=== PATIENT | female | born 1950 | race Caucasian/White ===

== ENCOUNTER 2016-10-12 12:28 | Inpatient (IN) ==
--- NOTE | 2016-10-09 22:25 | Discharge Summary ---
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 with presence of antibiotic-impregnated cement spacer Priority: Primary Status: Acute (2) History of streptococcal septicemia Priority: Secondary Status: Chronic (3) COPD (chronic obstructive pulmonary disease) Priority: Secondary Status: Chronic Qualifiers: COPD type: unspecified COPD Qualified Code(s): J44.9 - Chronic obstructive pulmonary disease, unspecified (4) Chronic atrial fibrillation Priority: Secondary Status: Chronic (5) Morbid obesity with BMI of 50.0-59.9, adult Priority: Secondary Status: Chronic - Discharge Medications Home Medications: Albuterol Sulfate [Ventolin Hfa] 2 puff IH Q6H PRN 03/13/16 [History] Apixaban [Eliquis] 5 mg PO Q12H 03/13/16 [History] Aspirin Enteric Coated [Aspirin EC] 81 mg PO DAILY 03/13/16 [History] BuPROPion [Wellbutrin] 100 mg PO BID 03/13/16 [History] Calcium Carbonate/Vitamin D3 [Oyster Shell Calcium-Vit D Tab] 500 mg PO BID [History] Citalopram [CeleXA] 60 mg PO DAILY 03/13/16 [History] Digoxin [Lanoxin] 0.25 mg PO DAILY 03/13/16 [History] Diltiazem CD (24hr) [Cardizem CD] 240 mg PO DAILY 03/13/16 [History] Ferrous Sulfate 325 mg PO BIDWM 03/13/16 [History] Ipratropium/Albuterol Neb [Duoneb] 3 ml IH Q6HR 03/13/16 [History] Oxycodone HCl/Acetaminophen [Percocet 5-325 mg Tablet] 1 tab PO TID PRN [History] Umeclidinium [place] [Incruse Ellipta] 62.5 mcg IH DAILY 08/01/16 [History] Aspirin Enteric Coated [Aspirin EC] 325 mg PO DAILY #21 tablet. 10/12/16 [Rx] Furosemide [Lasix] 40 mg PO DAILY 10/12/16 [History] Mv,Ca,Min/Iron Fum/FA/Lyco/Lut [Sentry Multivit & Mineral Cplt] 1 tab PO DAILY 10/12/16 [History] Omeprazole [PriLOSEC] 40 mg PO DAILY 10/12/16 [History] OxyCODONE Immed Rel [Roxicodone 5 MG] 5 - 10 mg PO Q6HR PRN #40 tablet 10/12/16 [Rx] Oxygen 2 l NS AD PRN 10/12/16 [History] Allergies/Adverse Reactions: Allergies lisinopril Adverse Reaction (Verified 10/12/16 13:53) Cough Primary care physician: Edouard Cole MD - Patient Status Disposition: Home, Self-Care Condition: Good - Discharge Instructions Follow Up With: Edouard Cole MD [Primary Care Provider] - - Hospital Course Hospital course: Ms. Lewis is a 66 year old female - Time Spent with Patient Total time spent providing and/or coordinating discharge services: <Isai Castanon - Last Filed: 10/14/16 07:59> Date of Encounter: 10/14/16 Time of Encounter: 07:58 - Discharge Diagnosis (1) Atrial fibrillation with RVR Priority: Secondary Status: Chronic (2) COPD (chronic obstructive pulmonary disease) Priority: Secondary Status: Chronic Qualifiers: COPD type: unspecified COPD Qualified Code(s): J44.9 - Chronic obstructive pulmonary disease, unspecified (3) Morbid obesity Priority: Secondary Status: Chronic Qualifiers: Obesity type: due to excess calories Qualified Code(s): E66.01 - Morbid ( severe) obesity due to excess calories (4) Afib Priority: Secondary Status: Chronic Qualifiers: Atrial fibrillation type: chronic Qualified Code(s): I48.2 - Chronic atrial fibrillation (5) Morbid obesity with BMI of 50.0-59.9, adult Priority: Secondary Status: Chronic (6) 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 Lewis is a 66 year old female The patient had an uneventful postoperative course. They received antibiotics and physical therapy and were discharged in stable condition. There will follow -up in the office in 2 weeks. Aspirin DVT prophylaxis no motion weightbearing as tolerated in brace - Time Spent with Patient Total time spent providing and/or coordinating discharge services:
[2016-10-12] MEDS ORDERED: Lidocaine 1% 20 ML MDV ID ONE (13:13)
[2016-10-12] MEDS ORDERED: Albuterol 2.5 MG/3 ML NEBULIZER IH ONE (13:13)
[2016-10-12] MEDS ORDERED: Vancomycin 1,750 MG in D5% in Water 500 ML IVPB ONE (13:13)
[2016-10-12] MEDS ORDERED: Ringers Solution, Lactated 1,000 ML IVC SCH (13:15)
--- NOTE | 2016-10-12 13:24 | History & Physical Report ---
Date of Encounter: 10/12/16 Time of Encounter: 13:23 24 Hour HP Update - Instructions Instructions: If the History and Physical is less than 30 days old and was completed prior to A.M. admission and or procedure and has NOT been updated on calendar day of procedure please complete this update prior to performing procedure. - Update Patient reports changes in Medical Condition: No Changes in assessment/condition: No Changes in Medication: No Preop tests/diagnostics Reviewed: Yes Surgery Remains Indicated: Yes Consent for Planned Operative Procedure(s) Verified: Yes - Pre-Operative Checklist Preoperative Checklist Indicated: No Prophylactic Antibiotic Ordered: Yes Is VTE Prophylaxis Indicated?: Yes
[2016-10-12] MEDS ORDERED: *HR* Midazolam HCl 2 MG/2 ML VIAL ONE (13:38)
[2016-10-12] MEDS ORDERED: *HR* FentaNYL (PF) 100 MCG/2 ML VIAL ONE (13:38)
[2016-10-12] MEDS ORDERED: *HR* Propofol 200 MG/20 ML VIAL IVP ONE (13:38)
[2016-10-12] MEDS ORDERED: Lidocaine -MPF 2% 2 ML VIAL ONE (13:40)
[2016-10-12] MEDS ORDERED: Ondansetron 4 MG/2 ML VIAL ONE (13:40)
[2016-10-12] MEDS ORDERED: Dexamethasone 4 MG/ML VIAL ONE (13:40)
--- NOTE | 2016-10-12 13:49 | Anesthesia Evaluation PreOp ---
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 History: Denies Any Significant HX Other Medical History: GERD Anesthesia History: No Prior Anesthetic Complications, Past Anesthesia (d&c, t&a , l tka x2, r tka,) Alcohol Use: rarely Drug use: none Medications and Allergies Albuterol Sulfate [Ventolin Hfa] 2 puff IH Q6H PRN 03/13/16 [History] Apixaban [Eliquis] 5 mg PO Q12H 03/13/16 [History] Aspirin Enteric Coated [Aspirin EC] 81 mg PO DAILY 03/13/16 [History] BuPROPion [Wellbutrin] 100 mg PO BID 03/13/16 [History] Calcium Carbonate/Vitamin D3 [Oyster Shell Calcium-Vit D Tab] 500 mg PO BID [History] Citalopram [CeleXA] 60 mg PO DAILY 03/13/16 [History] Digoxin [Lanoxin] 0.25 mg PO DAILY 03/13/16 [History] Diltiazem CD (24hr) [Cardizem CD] 240 mg PO DAILY 03/13/16 [History] Ferrous Sulfate 325 mg PO BIDWM 03/13/16 [History] Furosemide [Lasix] 80 mg PO BID 03/13/16 [History] Ipratropium/Albuterol Neb [Duoneb] 3 ml IH Q6HR 03/13/16 [History] Oxycodone HCl/Acetaminophen [Percocet 5-325 mg Tablet] 1 tab PO TID PRN [History] Umeclidinium [place] [Incruse Ellipta] 62.5 mcg IH DAILY 08/01/16 [History] CefTRIAXone [Rocephin] 2,000 mg IVPB Q12HR 35 Days 08/10/16 [Rx] OxyCODONE/APAP 5/325 [Percocet 5/325 MG] 1 each PO Q6HR PRN #20 tablet 08/11/16 [Rx] Aspirin Enteric Coated [Aspirin EC] 325 mg PO DAILY #21 tablet. 10/12/16 [Rx] OxyCODONE Immed Rel [Roxicodone 5 MG] 5 - 10 mg PO Q6HR PRN #40 tablet 10/12/16 [Rx] Allergies lisinopril Adverse Reaction (Verified 09/09/16 21:37) Cough - Meds/Allergy Pre-op Review Medications Reviewed: Yes (eliquis) Allergies Reviewed: Yes Beta Blockers on Current Med List: No Anesthesia Results - Labs Laboratory Tests 09/16/16 09/16/16 10/07/16 09:00 09:00 08:32 Hgb 10.1 L Hct 33.5 L Plt Count 336 PT 15.2 H INR 1.4 APTT 33.7 Sodium 138 Potassium 4.0 Creatinine 0.65 - Imaging EKG: report reviewed (af, ivcd) Anesthesia Exam O2 Sat Height 1.59 m Height 1.59 m Height 1.59 m Weight 124.738 kg Weight 124.738 kg Weight 124.738 kg O2 Sat by Pulse Oximetry 93 O2 Sat by Pulse Oximetry 93 O2 Sat by Pulse Oximetry 93 Vital Signs Temp Pulse Resp BP Pulse Ox 98.5 F 78 18 131/74 93 L 10/12/16 12:56 10/12/16 12:56 10/12/16 12:56 10/12/16 12:56 10/12/16 12:56 Height: 1.59 Weight: 124 NPO (# of Hours): >8 - HEENT Pupil (Motor): Pupils equal, EOMI Mallampati: III Teeth: Edentulous Oral Opening: Greater than 3 - DIRECTOR OF RECREATION THERAPY LOC: Oriented DIRECTOR OF RECREATION THERAPY Motor: Normal RUE, Normal LUE, Normal RLE, Normal LLE, Normal Face DIRECTOR OF RECREATION THERAPY Sensory: Normal: RUE, LUE, RLE, LLE, Face - Cardiac Rhythm: Regular Murmur: None - Pulmonary Breath Sounds: bilateral Rhonchi Respiratory Effort: Symmetrical Anesthesia Assess/Plan ASA Score: 4 Modified [place] Scale for Level of Consciousness: Cooperative, oriented, and tranquil Anesthetic Plan: General, Regional Monitoring Plan: Standard Monitors Recovery Plan: PACU
[2016-10-12] MEDS ORDERED: *HR* HYDROmorphone (PF) 1 MG/ML SYRINGE IVP PRN ×2 (14:00→17:17)
[2016-10-12] MEDS ORDERED: *HR* Labetalol 100 MG/20 ML MDV IVP PRN (14:00)
[2016-10-12] MEDS ORDERED: Ketorolac 15 MG/ML VIAL IVP ONE (14:00)
[2016-10-12] MEDS ORDERED: Bupivacaine/Clonidine Syringe 1 EACH SYRINGE ONE (14:04)
--- NOTE | 2016-10-12 15:02 | Anesthesia Procedures ---
Date of Encounter: 10/12/16 Time of Encounter: 14:30 Procedures: Anesthesia - Nerve Block Procedure Date: 10/12/16 Time: 14:30 Allergies/Adv Reactions: Allergies Allergy/AdvReac Type Severity Reaction Status Date / Time lisinopril AdvReac Cough Verified 10/12/16 13:53 Surgical Procedure: Left Knee Revision Checklist: Correct Patient Identifier, Correct procedure, History checked Correct side: Left Blood Thinner: No Monitor Applied: EKG, BP, Pulse Oximetry Supplemental Oxygen via Nasal Cannula (L/min): 2 Sedation: Versed (mg): 2 Indication: Post Op Analgesia (per dr. linda) Pre-op Neuro Deficits: No Block Type: Femoral, Other (ipack) Sterile Technique: Yes Ultrasound used: Yes Anatomy identified: Yes Visual spread of Local: Yes Neuro Stimulation: Yes Nerve Stimulator Range: 0.2 - 0.4 mA Blood on Needle Aspiration: No Smooth Injection of Local: Yes Pain with Injection of Local: No Prep: Chlorhexadine Needle: 22 x 50 mm Stimuplex (for femoral), 21 x 100 mm Stimuplex (for ipack) Local: 0.25% Bupivicaine w/Clonidine 20 mcg/cc Volume (cc): 40 femoral, 20 ipack Number of Attempts: 1 Complications: None/effective block Vitals: Vital Signs/O2 Sat/Glucose, Most Recent Temp Pulse Resp BP Pulse Ox 98.5 F 76 16 147/83 99 10/12/16 13:22 10/12/16 14:30 10/12/16 14:30 10/12/16 14:30 10/12/16 14:30 [facility]
--- NOTE | 2016-10-12 15:33 | Orthopedic Operative Note ---
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 20 constrained Lyn, Exam Under anesthesia: Patient with a well-healed incision no drainage nor erythema Procedural Notes: Patient with no evidence of infection Gram stain and culture sent Operative procedure: The patient was brought to the operating room and placed on the operating room table. After general anesthesia was administered the operative knee was examined. Findings were noted in the exam under anesthesia. The operative extremity was prepped and draped in sterile surgical fashion. The patient received IV antibiotics prior to skin incision. A standard midline incision was made centered over the patella through the old incision. The incision was made through the skin and subcutaneous tissue. A medial parapatellar tendon approach was performed. Patient had a previous patellectomy. Care was taken to protect the patella tendon. The deep MCL was released off the medial tibia. The infra patella fat pad was excised. Fluid was encountered this was normal joint fluid, Cultures were obtained and gram . The knee was brought into flexion the cemented Lyn was removed, the lightly cemented femoral component was removed. The ends were cleared of soft tissue debris with a curet. The tibia was sized to a 63 it was reamed up to a 15 x 120. Trial had good fit and fixation. The femur was sized to a 60, was reamed up to a 14 x 120. The finishing guide was seated and the box cut was made. The trial had good fit and fixation. Both trial components were seated and the 20 constrained Lyn was seated and secured. The knee had full flexion and full extension with no instability. The trial components were removed. The knee sat for 2 minutes with a Betadine saline solution. It was irrigated out with 2 L of pulse irrigation. The components were assembled on the back table, the tibia cemented first followed by the femur. The 20 constrained liner was seated and secure. The knee was brought to full extension while the cement hardened. After the cement hardened the knee was irrigated out again. The extensor mechanism was closed with a running #2 PDS suture. The deep tissue was irrigated and closed deep with #1 PDS suture superficially with 0 PDS suture. The skin was closed with skin zuleika. The patient was placed in a sterile dressing and postoperative brace. They were extubated and transferred to recovery room in stable condition. Anesthesia: GETA Surgeon: Isai Castanon [employer] Consultant: Elizabeth Oh Condition: stable Disposition: PACU
[2016-10-12 16:42] LABS: Hematocrit 35.3 % (35.3-44.9); Hemoglobin 10.3 g/dL (11.5-15.4)
--- NOTE | 2016-10-12 17:05 | Anesthesia Evaluation Post Op ---
Date of Encounter: 10/12/16 Time of Encounter: 17:03 - Vital Signs Vital Signs: Vital Signs/O2 Sat/Glucose, Most Current Temp Pulse Resp BP Pulse Ox 10/12/16 16:35 98.0 F 87 16 131/78 99 10/12/16 16:25 85 16 115/69 97 10/12/16 16:15 91 16 141/77 99 10/12/16 16:05 98.1 F 96 16 141/88 100 10/12/16 14:30 76 16 147/83 99 10/12/16 14:16 75 16 167/82 100 10/12/16 13:22 98.5 F 78 18 131/74 93 L - Lungs Lungs: Treatment Ordered (baseline wheezes/rhonchi) - Airway Airway: Non-obstructed - Cardiovascular Baseline Rhythm - Mental Status Mental Status: Alert & Oriented, Answers Appropriately - Pain Pain Scale: 4 Pain Scale used: Numeric (1 - 10) - Nausea Vomiting Nausea Vomiting: Not Present - Hydration Hydration: Ice chips, Has not voided - Discharge PostOp Status: Transfer Patient to floor Anes Supervising Prov Stmt: PT seen/evaluated, VSS and pt has met criteria for discharge to floor. - MD Casey
[2016-10-12] MEDS ORDERED: NON-FORMULARY MEDICATION 1 EACH EACH (Oxygen [Oxygen] 2 L) NS PRN (17:17)
[2016-10-12] MEDS ORDERED: Temazepam 15 MG CAPSULE PO PRN (17:17)
[2016-10-12] MEDS ORDERED: MOM Conc 10 ML UD.LIQ PO PRN (17:17)
[2016-10-12] MEDS ORDERED: Naloxone 0.4 MG/ML INJ IVP PRN (17:17)
[2016-10-12] MEDS ORDERED: Acetaminophen 325 MG TABLET PO PRN (17:17)
[2016-10-12] MEDS ORDERED: Ondansetron 4 MG/2 ML VIAL IVP PRN (17:17)
[2016-10-12] MEDS ORDERED: Sennosides 8.6 MG TABLET PO PRN (17:17)
[2016-10-12] MEDS ORDERED: *HR* Enoxaparin 30 MG/0.3 ML SYRINGE SQ SCH (18:00)
[2016-10-12] MEDS ORDERED: Vancomycin 1,000 MG VIAL IVPB SCH (18:00)
[2016-10-12] MEDS: APIXABAN 5 MG TABLET PO SCH (19:53)
[2016-10-12] MEDS: Ipratropium/Albuterol Neb 3 ML IH SCH (21:07)
[2016-10-12] MEDS: Ringers Solution, Lactated 1,000 ML IVC SCH (21:36)
[2016-10-13] MEDS: Vancomycin 1,250 MG in D5% in Water 250 ML IVPB SCH ×2 (00:49→15:13)
[2016-10-13] MEDS: *HR* OxyCODONE Immed Rel 5 MG TABLET PO PRN ×3 (04:30→20:26)
[2016-10-13 05:15] LABS: Hematocrit 32.2 % (35.3-44.9); Hemoglobin 9.8 g/dL (11.5-15.4)
[2016-10-13] MEDS: APIXABAN 5 MG TABLET PO SCH ×2 (05:44→17:59)
[2016-10-13] MEDS: Ipratropium/Albuterol Neb 3 ML IH SCH ×4 (05:56→22:11)
[2016-10-13 06:36] LABS: BUN/Creatinine Ratio 17 (6-26); Blood Urea Nitrogen 12 mg/dL (7-20); Calcium 9.3 mg/dL (8.6-10.8); Carbon Dioxide 26 mEq/L (19-29); Chloride 101 mEq/L (98-109); Glucose 156 mg/dL (70-99); Osmolality,Calculated 289 (280-300); Potassium 4.5 mEq/L (3.5-4.5); Sodium 138 mEq/L (136-145); eGFR For African Americans > 60 (> 60); eGFR For Non-African Americans > 60 (> 60)
--- NOTE | 2016-10-13 07:45 | Orthopedics Progress Note ---
Date of Encounter: 10/13/16 Time of Encounter: 06:00 - Assessment and Plan (1) Atrial fibrillation with RVR Current Visit: No Status: Chronic (2) COPD (chronic obstructive pulmonary disease) Current Visit: No Status: Chronic Qualifiers: COPD type: unspecified COPD Qualified Code(s): J44.9 - Chronic obstructive pulmonary disease, unspecified (3) Morbid obesity Current Visit: No Status: Chronic Qualifiers: Obesity type: due to excess calories Qualified Code(s): E66.01 - Morbid ( severe) obesity due to excess calories (4) Afib Current Visit: No Status: Chronic Qualifiers: Atrial fibrillation type: chronic Qualified Code(s): I48.2 - Chronic atrial fibrillation (5) Morbid obesity with BMI of 50.0-59.9, adult Current Visit: No Status: Chronic (6) 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 Afebrile vital signs stable. Operative extremity: Neurovascularly intact Dressing clean dry and intact Calves nontender Assessment and plan: Continue with postoperative care Hematocrit 32 Objective Vital signs: Vital Signs Temp Pulse Resp BP Pulse Ox 10/13/16 07:31 98.6 F 94 16 117/68 96 10/13/16 03:30 98.1 F 102 18 134/77 96 10/13/16 00:48 97.9 F 97 18 144/80 95 10/12/16 21:12 95 140/90 97 10/12/16 21:08 16 96 10/12/16 19:35 98 F 85 16 131/83 95 10/12/16 18:35 98.7 F 100 16 125/79 97 10/12/16 18:05 98.5 F 84 18 128/84 96 10/12/16 17:35 98.5 F 85 16 130/84 100 10/12/16 17:20 97.8 F 86 16 138/82 97 10/12/16 17:05 97.7 F 72 16 135/85 97 10/12/16 16:50 97.7 F 93 16 134/86 94 L 10/12/16 16:35 98.0 F 87 16 131/78 99 10/12/16 16:25 85 16 115/69 97 10/12/16 16:15 91 16 141/77 99 10/12/16 16:05 98.1 F 96 16 141/88 100 10/12/16 14:30 76 16 147/83 99 10/12/16 14:16 75 16 167/82 100 10/12/16 13:22 98.5 F 78 18 131/74 93 L 10/12/16 12:56 98.5 F 78 18 131/74 93 L Intake and Output 10/12/16 10/12/16 10/13/16 15:59 23:59 07:59 Intake Total 750 / 750 0 / 0 Output Total 200 / 200 0 / 0 Balance -200 / -200 750 / 750 0 / 0 Intake: IV Fluids 750 / 750 Lactated Ringers 1,000 ML 750 / 750 @ 25 mls/hr IVC .Q24H [facility] Rx#:[id number] Oral 0 / 0 Output: Urine 0 / 0 Estimated Blood Loss 200 / 200 Other: Weight 124.738 kg 124.4 kg Patient Weight 10/13/16 23:59 Weight 124.4 kg - Labs CBC & BMP: 10/13/16 04:08 10/13/16 04:08 Labs: Abnormal lab results Hgb 9.8 g/dL (11.5-15.4) L 10/13/16 04:08 Hct 32.2 % (35.3-44.9) L 10/13/16 04:08 Glucose 156 mg/dL (70-99) H 10/13/16 04:08 - VTE Documentation of Mechanical Device: Venous foot pump, device Consult Discharge Plan - Plan Referrals: Edouard Cole MD [Primary Care Provider] -
[2016-10-13] MEDS: Aspirin Enteric Coated 81 MG Tablet PO SCH (08:30)
[2016-10-13] MEDS: Furosemide 40 MG TABLET PO SCH (08:30)
[2016-10-13] MEDS: *HR* Digoxin 0.25 MG TABLET PO SCH (08:30)
[2016-10-13] MEDS: Multivit/Ca/Min/Fe/FA 1 TAB TABLET PO SCH (08:30)
[2016-10-13] MEDS: Diltiazem CD (24hr) 240 MG CAPSULE PO SCH (08:30)
[2016-10-13] MEDS: INCRUSE ELLIPTA IH SCH (09:26)
[2016-10-13] MEDS: Ringers Solution, Lactated 1,000 ML IVC SCH (12:22)
[2016-10-14] MEDS: Vancomycin 1,250 MG in D5% in Water 250 ML IVPB SCH (03:34)
[2016-10-14] MEDS: *HR* OxyCODONE Immed Rel 5 MG TABLET PO PRN ×2 (03:40→09:32)
[2016-10-14] MEDS: Ipratropium/Albuterol Neb 3 ML IH SCH (03:46)
[2016-10-14 05:16] LABS: Hematocrit 31.4 % (35.3-44.9); Hemoglobin 9.3 g/dL (11.5-15.4)
[2016-10-14 05:30] LABS: BUN/Creatinine Ratio 23 (6-26); Blood Urea Nitrogen 17 mg/dL (7-20); Carbon Dioxide 27 mEq/L (19-29); Chloride 100 mEq/L (98-109); Glucose 116 mg/dL (70-99); Osmolality,Calculated 285 (280-300); Potassium 4.1 mEq/L (3.5-4.5); Sodium 136 mEq/L (136-145); eGFR For African Americans > 60 (> 60); eGFR For Non-African Americans > 60 (> 60)
[2016-10-14] MEDS: APIXABAN 5 MG TABLET PO SCH (06:30)
[2016-10-14 07:19] VITALS: BP 107/71
[2016-10-14] MEDS: INCRUSE ELLIPTA IH SCH (07:24)
[2016-10-14] MEDS: Aspirin Enteric Coated 81 MG Tablet PO SCH (07:48)
[2016-10-14] MEDS: *HR* Digoxin 0.25 MG TABLET PO SCH (07:48)
[2016-10-14] MEDS: Multivit/Ca/Min/Fe/FA 1 TAB TABLET PO SCH (07:48)
[2016-10-14] MEDS: Diltiazem CD (24hr) 240 MG CAPSULE PO SCH (07:48)
[2016-10-14] MEDS: Furosemide 40 MG TABLET PO SCH (07:49)
--- NOTE | 2016-10-14 08:00 | Orthopedics Progress Note ---
Date of Encounter: 10/14/16 Time of Encounter: 07:59 - Assessment and Plan (1) Atrial fibrillation with RVR Current Visit: No Status: Chronic (2) COPD (chronic obstructive pulmonary disease) Current Visit: No Status: Chronic Qualifiers: COPD type: unspecified COPD Qualified Code(s): J44.9 - Chronic obstructive pulmonary disease, unspecified (3) Morbid obesity Current Visit: No Status: Chronic Qualifiers: Obesity type: due to excess calories Qualified Code(s): E66.01 - Morbid ( severe) obesity due to excess calories (4) Afib Current Visit: No Status: Chronic Qualifiers: Atrial fibrillation type: chronic Qualified Code(s): I48.2 - Chronic atrial fibrillation (5) Morbid obesity with BMI of 50.0-59.9, adult Current Visit: No Status: Chronic (6) 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 Afebrile vital signs stable. Operative extremity: Neurovascularly intact Dressing clean dry and intact Calves nontender Assessment and plan: Continue with postoperative care discharge today Objective Vital signs: Vital Signs Temp Pulse Resp BP Pulse Ox 10/14/16 07:14 98.4 F 93 16 107/71 93 L 10/14/16 03:47 20 96 10/14/16 02:45 98.0 F 81 18 116/66 93 L 10/13/16 22:11 20 98 10/13/16 20:21 98.7 F 72 20 120/62 95 10/13/16 16:31 16 96 10/13/16 15:21 98.4 F 64 18 106/63 96 10/13/16 11:54 98.1 F 96 16 128/74 95 10/13/16 10:49 18 95 10/13/16 08:25 96 Intake and Output 10/13/16 10/13/16 10/14/16 15:59 23:59 07:59 Intake Total 1240 / 1240 1210 / 1210 1730 / 1730 Output Total 400 / 400 0 / 0 Balance 1240 / 1240 810 / 810 1730 / 1730 Intake: IV Fluids 1000 / 1000 250 / 250 1250 / 1250 Lactated Ringers 1,000 ML 1000 / 1000 1000 / 1000 @ 75 mls/hr IVC .[id number] [facility] Rx#:[id number] Vancocin 1,250 MG In 250 / 250 250 / 250 Dextrose 5% 250 ML @ 166. 667 mls/hr IVPB Q12H [facility] Rx#:[id number] Oral 240 / 240 960 / 960 480 / 480 Output: Urine 400 / 400 0 / 0 Other: Meal Breakfast soda Percent of Meal Consumed 50% 100% # Voids 2 Weight 124.9 kg Patient Weight 10/14/16 23:59 Weight 124.9 kg - Labs CBC & BMP: 10/14/16 04:38 10/14/16 04:38 Labs: Abnormal lab results Hgb 9.3 g/dL (11.5-15.4) L 10/14/16 04:38 Hct 31.4 % (35.3-44.9) L 10/14/16 04:38 Glucose 116 mg/dL (70-99) H 10/14/16 04:38 - VTE Documentation of Mechanical Device: Venous foot pump, device Consult Discharge Plan - Plan Referrals: Edouard Cole MD [Primary Care Provider] -
[2016-10-14] MEDS ORDERED: Aminoglycoside Consult 1 EACH MC ONE (09:35)
== END 2016-10-14 09:36 | disposition home or self-care (01) | DRG 467 ==
LOC: SAMDAY 12:28 → 3ANU 17:00
PROVIDERS: ADMIT Orthopaedic Surgery; ATTEND Orthopaedic Surgery

== ENCOUNTER 2017-05-03 14:06 | Inpatient (IN) ==
[2017-05-03] MEDS ORDERED: Ipratropium/Albuterol Neb 3 ML IH ONE (14:10)
[2017-05-03] MEDS ORDERED: methylPREDNISolone 125 MG/2 ML VIAL IVP ONE (14:10)
--- NOTE | 2017-05-03 14:27 | Emergency Department Note ---
Disposition Clinical Impression: Acute exacerbation of chronic obstructive airways disease, Hypoxia Disposition: Admitted As Inpatient Condition: Good Referrals: Edouard Cole MD [Primary Care Provider] - Forms: ED Satisfaction Letter Time of Disposition: 16:27 SOB HPI - General Chief Complaint: ED Shortness of Breath/Dyspnea Stated Complaint: JESSICA Time Seen by Provider: 05/03/17 14:10 Source: patient Limitations: no limitations Nursing Notes Reviewed: Yes Vital Signs Reviewed: Yes - History of Present Illness 66 year old female with HX of COPD states that she usually wears 2LNC at rishabh during the night when she sleeps and she smoke cigarettes dailiy. Patient states that she has needed incresed oxygen requirements for the past 24-48 hours and has been increasingly her oxygen requirements to 24 hours of 2LNC. Frankie states tht she also has had a productive cough with white sputum. She states that she has been looking for her albuerol and breathign treaments and couldnt find it and so she called EMS due to the dyspnea. Fraknie was hypoxic on EMS arrrival at 86%. she is on 2LNC now and at 100% she denies chest pain. Denies fevers. - Related Data Home Medications Medication Instructions Recorded Confirmed Albuterol Sulfate [Ventolin Hfa] 2 puff IH Q6H PRN 03/13/16 05/03/17 Apixaban [Eliquis] 5 mg PO Q12H 03/13/16 05/03/17 Aspirin Enteric Coated [Aspirin EC] 81 mg PO DAILY 03/13/16 05/03/17 BuPROPion [Wellbutrin] 100 mg PO BID 03/13/16 05/03/17 Calcium Carbonate/Vitamin D3 500 mg PO BID 03/13/16 05/03/17 [Oyster Shell Calcium-Vit D Tab] Citalopram [CeleXA] 60 mg PO DAILY 03/13/16 05/03/17 Digoxin [Lanoxin] 0.25 mg PO DAILY 03/13/16 05/03/17 Ferrous Sulfate 325 mg PO BIDWM 03/13/16 05/03/17 Ipratropium/Albuterol Neb [Duoneb] 3 ml IH Q6HR PRN 03/13/16 05/03/17 Umeclidinium [place] [Incruse 62.5 mcg IH DAILY 08/01/16 05/03/17 Ellipta] Mv,Ca,Min/Iron Fum/FA/Lyco/Lut 1 tab PO DAILY 10/12/16 05/03/17 [Sentry Multivit & Mineral Cplt] Omeprazole [PriLOSEC] 40 mg PO DAILY 10/12/16 05/03/17 Oxygen 2 l NS AD PRN 10/12/16 05/03/17 Diltiazem HCl [Diltiazem ER] 240 mg PO DAILY 05/03/17 05/03/17 Fluticasone/Salmeterol [Advair 1 each IH BID 05/03/17 05/03/17 250-50 Diskus] Furosemide [Lasix] 80 mg PO BID 05/03/17 05/03/17 Allergies Allergy/AdvReac Type Severity Reaction Status Date / Time lisinopril AdvReac Cough Verified 10/12/16 13:53 Constitutional: Denies: fever, chills, weakness, weight change Eyes: Denies: eye pain, eye discharge, vision change ENT ED: Denies: ear pain, throat pain, dental pain, hearing loss, epistaxis, congestion, dysphagia Cardiovascular: Denies: chest pain, palpitations, dyspnea on exertion, edema, syncope Respiratory: Reports: cough, dyspnea, wheezes. Denies: hemoptysis, stridor Gastrointestinal: Denies: abdominal pain, nausea, vomiting, diarrhea, constipation, hematemesis, melena, hematochezia Genitourinary: Denies: dysuria, frequency, hematuria, discharge Musculoskeletal: Denies: back pain, neck pain, arthralgia, myalgia Integumentary: Denies: rash, abrasion, lesions Neurological: Denies: headache, weakness, numbness, paresthesias, confusion, abnormal gait, vertigo Psychiatric: Denies: anxiety, depression, suicidal thoughts, homicidal thoughts , auditory hallucinations, visual hallucinations Endocrine: Denies: fatigue Hematological/Lymphatic: Denies: easy bleeding, easy bruising Allergic/Immunologic: Denies: facial swelling, urticaria Past Medical History - Past Medical History Medical history: Reports: atrial fibrillation, COPD, GERD, hypertension, other Surgical history: Reports: knee replacement Psychiatric history: Reports: depression DURABLE MEDICAL EQUIPMENT TECHNICIAN history: Reports: no DURABLE MEDICAL EQUIPMENT TECHNICIAN history - Social History Smoking Status: Current every day smoker Smokeless Tobacco Status: Yes Alcohol use: Reports: rarely Drug use: Reports: none Physical Exam - General Limitations: no limitations General appearance: alert - Head Head exam: atraumatic, normocephalic, normal inspection - Eye Eye exam: Present: normal appearance, PERRL, EOMI - Expanded Eye Exam Pupils: Left: reactive - ENT ENT exam: normal exam, normal oropharynx, mucous membranes moist - Expanded ENT Exam External ear exam: Present: normal external inspection Mouth exam: Present: normal external inspection Teeth exam: Present: normal inspection Throat exam: Present: normal inspection - Neck Neck exam: Present: normal inspection, full ROM, trachea midline - Chest Chest inspection: Present: normal inspection, symmetric chest wall rise - Respiratory Respiratory exam: Present: wheezes - Expanded Respiratory Exam Location: wheezes: Left, Right, Upper, Lower - Cardiovascular Cardiovascular exam: Present: regular rate, normal rhythm, normal heart sounds - Abdominal Exam Abdominal exam: Present: soft, Non-Tender. Absent: tenderness, distention, guarding, rebound, rigidity - Extremities Exam Extremities exam: Present: normal inspection, full ROM. Absent: tenderness, pedal edema - Expanded Upper Extremity Exam Shoulder exam: Present: normal inspection, full ROM Arm exam: Present: normal inspection, full ROM Elbow exam: Present: normal inspection, full ROM Forearm/Wrist exam: Present: normal inspection, full ROM Hand exam: Present: normal inspection, full ROM Vascular exam: Normal: capillary refill, radial pulse - Expanded Lower Extremity Exam Hip/Pelvis exam: Present: normal inspection, full ROM Upper leg exam: Present: normal inspection, full ROM Knee exam: Present: normal inspection, full ROM Lower leg exam: Present: normal inspection, full ROM Ankle exam: Present: normal inspection, full ROM Foot/toe exam: Present: normal inspection, full ROM Neurovascular/Tendon exam: Absent: motor deficit, sensory deficit, tendon deficit - Back Exam Back exam: Present: normal inspection, full ROM. Absent: tenderness - Neurological Exam Neurological exam: Present: alert, oriented X3 - Expanded Neurological Exam Patient oriented to: Present: person, place, time Coma Scale Eye Opening: Spontaneous Coma Scale Motor Response: Obeys Commands Coma Scale Verbal Response: Oriented Coma Scale Total: 15 - Psychiatric Psychiatric exam: Present: normal affect, normal mood - Skin Skin exam: Present: warm, dry, intact, normal color Course Course Narrative: we will give him duonebs and solumderol for therapy. cardiac workup - Reevaluation(s) Reevaluation #1: updated patient on reuslts SHe is 88% on 2LNC, inreasd to 4LNC and now she is 92 %. She is agreeable to admision Time: 16:27 - Consultations Consultation #1: discussed case with Bharati Mendez NP and she has accepted case to medicine service Time: 16:27 Vital Signs Temperature 98.3 F 05/03/17 14:08 Pulse Rate 73 05/03/17 14:08 Respiratory Rate 22 05/03/17 14:08 Blood Pressure 143/85 05/03/17 14:08 O2 Sat by Pulse Oximetry 99 05/03/17 14:08 Temperature 98.3 F 05/03/17 14:08 Pulse Rate 70 05/03/17 16:09 Respiratory Rate 18 05/03/17 16:09 Blood Pressure 141/68 05/03/17 16:09 O2 Sat by Pulse Oximetry 93 05/03/17 16:09 Oxygen Delivery Oxygen Delivery Nasal Cannula Shortness of Breath/Dyspnea - Lab Data Result diagrams: 05/03/17 14:35 05/03/17 14:35 Lab Results 05/03/17 05/03/17 05/03/17 Range/Units 14:35 14:35 14:35 WBC (4.3-11.1) K/mcL RBC (3.82-4.97) M/mcL Hgb (11.5-15.4) g/dL Hct (35.3-44.9) % MCV (83.0-100.0) fL MCH (28.0-33.3) pg MCHC (31.6-35.5) g/dL RDW (11.5-14.5) % Plt Count (140-400) K/mcL MPV (9.4-12.4) fL Immature Gran % (0-4) % Seg Neutrophils % % Lymphocytes % % Monocytes % % Eosinophils % % Basophils % % Neutrophils # (1.6-8.9) K/mcL Lymphocytes # (0.6-4.6) K/mcL Monocytes # (0.0-1.3) K/mcL Eosinophils # (0.0-0.6) K/mcL Basophils # (0.0-0.2) K/mcL PT 14.6 H (9.4-12.1) Seconds INR 1.3 APTT 34.2 (26.0-36.0) Seconds Sodium (136-145) mEq/L Potassium (3.5-4.5) mEq/L Chloride (98-109) mEq/L Carbon Dioxide (19-29) mEq/L BUN (7-20) mg/dL Creatinine (0.57-1.11) mg/dL Est GFR ( Amer) (> 60) Est GFR (Non-Af Amer) (> 60) BUN/Creatinine Ratio (6-26) Glucose (70-99) mg/dL Calculated Osmolality (280-300) Calcium (8.6-10.8) mg/dL Total Bilirubin 0.2 (0.2-1.2) mg/dL Direct Bilirubin 0.2 (0.0-0.5) mg/dL Indirect Bilirubin 0.0 (0.0-1.2) mg/dL AST 15 (5-34) Units/L ALT 16 (0-55) Units/L Alkaline Phosphatase 112 (38-126) Units/L Troponin I (0-0.03) ng/mL B-Natriuretic Peptide 154 H (0-100) pg/mL Serum Total Protein 7.8 (6.0-8.3) g/dL Albumin 3.2 L (3.5-5.0) g/dL Globulin 4.6 H (2.4-3.5) g/dL Albumin/Globulin Ratio 0.7 L (1.1-2.2) Lipase 27 (8-78) Units/L 05/03/17 05/03/17 05/03/17 Range/Units 14:35 14:35 14:35 WBC 7.6 (4.3-11.1) K/mcL RBC 4.79 (3.82-4.97) M/mcL Hgb 11.5 (11.5-15.4) g/dL Hct 38.8 (35.3-44.9) % MCV 81.0 L (83.0-100.0) fL MCH 24.0 L (28.0-33.3) pg MCHC 29.6 L (31.6-35.5) g/dL RDW 15.9 H (11.5-14.5) % Plt Count 277 (140-400) K/mcL MPV 9.5 (9.4-12.4) fL Immature Gran % 0.5 (0-4) % Seg Neutrophils % 56.5 % Lymphocytes % 23.2 % Monocytes % 9.4 % Eosinophils % 10.0 % Basophils % 0.4 % Neutrophils # 4.3 (1.6-8.9) K/mcL Lymphocytes # 1.8 (0.6-4.6) K/mcL Monocytes # 0.7 (0.0-1.3) K/mcL Eosinophils # 0.8 H (0.0-0.6) K/mcL Basophils # 0.0 (0.0-0.2) K/mcL PT (9.4-12.1) Seconds INR APTT (26.0-36.0) Seconds Sodium 140 (136-145) mEq/L Potassium 3.5 (3.5-4.5) mEq/L Chloride 100 (98-109) mEq/L Carbon Dioxide 32 H (19-29) mEq/L BUN 10 (7-20) mg/dL Creatinine 0.78 (0.57-1.11) mg/dL Est GFR ( Amer) > 60 (> 60) Est GFR (Non-Af Amer) > 60 (> 60) BUN/Creatinine Ratio 13 (6-26) Glucose 87 (70-99) mg/dL Calculated Osmolality 288 (280-300) Calcium 9.4 (8.6-10.8) mg/dL Total Bilirubin (0.2-1.2) mg/dL Direct Bilirubin (0.0-0.5) mg/dL Indirect Bilirubin (0.0-1.2) mg/dL AST (5-34) Units/L ALT (0-55) Units/L Alkaline Phosphatase (38-126) Units/L Troponin I 0.00 (0-0.03) ng/mL B-Natriuretic Peptide (0-100) pg/mL Serum Total Protein (6.0-8.3) g/dL Albumin (3.5-5.0) g/dL Globulin (2.4-3.5) g/dL Albumin/Globulin Ratio (1.1-2.2) Lipase (8-78) Units/L - EKG Data EKG attestation: Yes I reviewed and interpreted this EKG. EKG results narrative: atrial fibrilltion rate controlled at 84. NO STEMI. no change from 08/01/16. 1414
[2017-05-03 14:44] LABS: Basophils % 0.4 %; Eosinophils # 0.8 K/mcL (0.0-0.6); Hematocrit 38.8 % (35.3-44.9); Hemoglobin 11.5 g/dL (11.5-15.4); Immature Granulocytes % 0.5 % (0-4); Lymphocytes # 1.8 K/mcL (0.6-4.6); Lymphocytes % 23.2 %; Mean Corpuscular HGB Conc 29.6 g/dL (31.6-35.5); Mean Platelet Volume 9.5 fL (9.4-12.4); Monocytes # 0.7 K/mcL (0.0-1.3); Monocytes % 9.4 %; Neutrophils # 4.3 K/mcL (1.6-8.9); Platelet Count 277 K/mcL (140-400); Red Blood Count 4.79 M/mcL (3.82-4.97); Red Cell Distribution Width 15.9 % (11.5-14.5); Segmented Neutrophils % 56.5 %
[2017-05-03 14:50] LABS: INR 1.3; Prothrombin Time 14.6 Seconds (9.4-12.1)
[2017-05-03 14:53] LABS: Activated Partial Thrombo Time 34.2 Seconds (26.0-36.0)
[2017-05-03 14:56] LABS: BUN/Creatinine Ratio 13 (6-26); Blood Urea Nitrogen 10 mg/dL (7-20); Calcium 9.4 mg/dL (8.6-10.8); Carbon Dioxide 32 mEq/L (19-29); Chloride 100 mEq/L (98-109); Glucose 87 mg/dL (70-99); Osmolality,Calculated 288 (280-300); Potassium 3.5 mEq/L (3.5-4.5); Sodium 140 mEq/L (136-145); eGFR For African Americans > 60 (> 60); eGFR For Non-African Americans > 60 (> 60)
[2017-05-03 15:00] LABS: Albumin 3.2 g/dL (3.5-5.0); Albumin/Globulin Ratio 0.7 (1.1-2.2); Bilirubin,Direct 0.2 mg/dL (0.0-0.5); Bilirubin,Total 0.2 mg/dL (0.2-1.2); Globulin 4.6 g/dL (2.4-3.5); Total Protein 7.8 g/dL (6.0-8.3)
[2017-05-03] MEDS: Ipratropium/Albuterol Neb 3 ML IH SCH ×3 (18:57→23:35)
[2017-05-03] MEDS ORDERED: *HR* Morphine 2 MG/ML SYRINGE IVP PRN (20:38)
[2017-05-03] MEDS ORDERED: Ondansetron 4 MG/2 ML VIAL IVP PRN (20:38)
[2017-05-03] MEDS ORDERED: Naloxone 0.4 MG/ML INJ IVP PRN (20:38)
[2017-05-03] MEDS ORDERED: Acetaminophen 325 MG TABLET PO PRN (20:38)
[2017-05-03] MEDS ORDERED: Furosemide 40 MG/4 ML VIAL IVP ONE (20:50)
[2017-05-03] MEDS ORDERED: Vancomycin 2,000 MG in D5% in Water 250 ML IVPB SCH (21:00)
[2017-05-03] MEDS ORDERED: *HR* Dextrose 50 % in Water (Syg) 50 ML SYRINGE IVP PRN (21:10)
[2017-05-03] MEDS ORDERED: Dextrose Gel 15 GM PO PRN ×2 (21:10)
[2017-05-03] MEDS ORDERED: D5% in Water 1,000 ML IVC PRN (21:10)
--- NOTE | 2017-05-03 21:21 | Internal Med History&Physical ---
<[place] - Last Filed: 05/03/17 21:53> Date of Encounter: 05/03/17 Time of Encounter: 19:00 Assessment and Plan (1) Acute exacerbation of chronic obstructive airways disease Current visit: Yes Status: Acute Patient presents with acute exacerbation of chronic obstructive airways disease. Patient reports shortness of breath and dyspnea since last Monday. Patient reports she normally wears 2 L of oxygen at home and when she sleeps and needed to increase her O2 to 3 L over the past 24 hours. Patient also reports she currently smokes 15-20 cigarettes daily. Upon arrival to the ED patient was hypoxic with SPO2 of 86%. Patient reports cough, dyspnea, wheezing , and shortness of breath. ABGs ordered. IVP lasix 40 mg BID ordered. Solu- Medrol 60 mg every 8 ordered. Patient will be placed on supplemental O2 with titration if SPO2 less than 92% and continuous SPO2 monitoring. DuoNeb's ordered every 4 scheduled as well as Tessalon 100 mg 3 times a day for cough. Falls/safety precautions ordered due to patient's SOB and weakness. Monitor closely for signs of respiratory distress. (2) Hypoxia Current visit: Yes Status: Acute Patient presents with acute hypoxia related to current acute exacerbation of COPD. ABG ordered due to patient's elevated CO2. Patient placed on supplemental O2 with titration if SPO2 less than 92% and continuous SPO2 monitoring. BiPAP ordered when necessary. DuoNebs every 4 scheduled. Tessalon 100 mg TID for cough. Will monitor patient closely for signs of respiratory distress. (3) Tobacco abuse counseling Current visit: Yes Status: Acute Patient counseled >10 minutes regarding the importance of smoking cessation on her current health conditions and the benefits of quitting. Methods for smoking cessation discussed. Patient requested 14 mg nicotine patch while inpatient. (4) GERD (gastroesophageal reflux disease) Current visit: Yes Status: Chronic Patient presents with history of chronic gastroesophageal reflux disease. IVP Zofran every 6 when necessary and IVP Protonix 40 mg BID ordered. Qualifiers: Esophagitis presence: esophagitis presence not specified Qualified Code(s) : K21.9 - Gastro-esophageal reflux disease without esophagitis (5) HTN (hypertension) Current visit: Yes Status: Chronic Patient presents with history of chronic hypertension. Monitor patient and vital signs and continue patient's diltiazem. Qualifiers: Hypertension type: essential hypertension Qualified Code(s): I10 - Essential (primary) hypertension (6) Cellulitis Current visit: Yes Status: Chronic Patient presents with cellulitis of the bilateral LEs that she reports as chronic. Patient's skin is edematous and erythematous with some scabbing and discharge. Wound care consult ordered with daily wound care. Wound culture ordered. IV vancomycin with pharmacy dosing and IV Zosyn 3.375 gm Q8 daily ordered for infection coverage. Qualifiers: Site of cellulitis: extremity Site of cellulitis of extremity: lower extremity Laterality: left Qualified Code(s): L03.116 - Cellulitis of left lower limb (7) Afib Current visit: No Status: Chronic Patient presents with chronic atrial fibrillation. HR on examination is irregular but w/o RVR. Patient placed on continuous cardiac telemetry. Will continue patient's PO diltiazem and digoxin. Qualifiers: Atrial fibrillation type: chronic Qualified Code(s): I48.2 - Chronic atrial fibrillation (8) DVT prophylaxis Current visit: No Status: Acute Patient placed on DVT prophylaxis due to current admission protocol and bedrest status. Will continue patient's Eliquis. Internal Medicine - H&P: HPI Chief complaint: Acute exacerbation of COPD Admitted From: Emergency Dept Plans for Post Hospital Care: Home History of present illness: Ms. Lewis is a 66 year old female with medical history of atrial fibrillation, COPD, GERD, and hypertension presents from the ED with chief complaint shortness of breath and dyspnea since last Monday. Patient reports she normally wears 2 L of oxygen at home and when she sleeps and needed to increase her O2 to 3 L over the past 24 hours. Patient also reports she currently smokes 15-20 cigarettes daily. Upon arrival to the ED patient was hypoxic with SPO2 of 86%. Patient reports cough, dyspnea, wheezing, and shortness of breath but denies recent illness, fever, chills, changes in vision, chest pain, palpitations, abdominal pain, nausea, vomiting, diarrhea, constipation, unusual bleeding, numbness, tingling, presyncope, or syncope. Upon admission to ED, patient's vital signs included temperature of 90 8.3F, HR 73 bpm, respiratory rate 22, BP of 143/85, and SPO2 of 93% after being placed on 3 L of O2 via nasal cannula. Abnormal labs include BNP of 154, albumin of 3.2, albumin globulin ratio 0.7, PT of 14.6, and CO2 of 32. Initial troponin was 0.00. On examination, patient is dyspneic, especially with speaking. On auscultation, lungs have diminished sounds bilaterally with expiratory wheezes. Patient's heart rate is atrial fibrillation without RVR. Also noted was bilateral cellulitis of patient's LEs which she reports is chronic. 1-View CXR today shows cardiomegaly with no acute finding in the chest. Patient is hemodynamically stable and reports moderate respiratory distress which is improved with DuoNeb treatment received during examination. Information taken from patient, chart review, and previous medical records and imaging. Time spent with patient greater than 40 minutes. Past Med Surg Social Fam HX - Past Medical History Source: patient, old records reviewed Medical history: atrial fibrillation, COPD, GERD, hypertension, other Psychiatric history: depression - Past Surgical History Surgical History: knee replacement, other (D&C, tonsillectomy) - Social History Smoking Status: Current every day smoker Packs per day: 12-15 cigarettes daily Smokeless Tobacco Status: No Alcohol use: none Drug use: none Current living situation: Home Activity Level: Uses cane/walker Recent Out of Country Travel Within the Last 8 Weeks: No Exposure or Possible Exposure to Illness During Travel: No - Family History Mother Adopted: No Race: Family Member Ethnicity: Non- Living Status: Age at : 79 Cause of : Stroke Hx Family Cardiac Disorders: Yes (TIAs, CVA) Father Race: Family Member Ethnicity: Non- Living Status: Age at : 79 Cause of : Stomach cancer Hx Family Cancer: Yes (Stomach) Brother Race: Family Member Ethnicity: Non- Living Status: Age at : 70 Cause of : Colon cancer Hx Family Cancer: Yes (Colon) Hx Family Endocrine Disorder: Yes (DM) Sister Race: Family Member Ethnicity: Non- Living Status: Still Living Hx Family Cardiac Disorders: Yes (CHF) Internal Medicine - H&P: Meds Albuterol Sulfate [Ventolin Hfa] 2 puff IH Q6H PRN 03/13/16 [History] Apixaban [Eliquis] 5 mg PO Q12H 03/13/16 [History] Aspirin Enteric Coated [Aspirin EC] 81 mg PO DAILY 03/13/16 [History] BuPROPion [Wellbutrin] 100 mg PO BID 03/13/16 [History] Calcium Carbonate/Vitamin D3 [Oyster Shell Calcium-Vit D Tab] 500 mg PO BID [History] Citalopram [CeleXA] 60 mg PO DAILY 03/13/16 [History] Digoxin [Lanoxin] 0.25 mg PO DAILY 03/13/16 [History] Ferrous Sulfate 325 mg PO BIDWM 03/13/16 [History] Ipratropium/Albuterol Neb [Duoneb] 3 ml IH Q6HR PRN 03/13/16 [History] Umeclidinium [place] [Incruse Ellipta] 62.5 mcg IH DAILY 08/01/16 [History] Mv,Ca,Min/Iron Fum/FA/Lyco/Lut [Sentry Multivit & Mineral Cplt] 1 tab PO DAILY 10/12/16 [History] Omeprazole [PriLOSEC] 40 mg PO DAILY 10/12/16 [History] Oxygen 2 l NS AD PRN 10/12/16 [History] Diltiazem HCl [Diltiazem ER] 240 mg PO DAILY 05/03/17 [History] Fluticasone/Salmeterol [Advair 250-50 Diskus] 1 each IH BID 05/03/17 [History] Furosemide [Lasix] 80 mg PO BID 05/03/17 [History] 3 Allergy/AdvReac Type Severity Reaction Status Date / Time lisinopril AdvReac Cough Verified 10/12/16 13:53 All Systems PM: A 10-system review of systems was performed and is negative for pertinent findings except as documented above in the HPI. - Constitutional Constitutional: no chills, no fever(s), no night sweats - EENT Eyes: no change in vision, no discharge, no pain, no photophobia Ears: no ear discharge, no ear pain, no tinnitus Nose, mouth and throat: no dysphagia, no nasal discharge, no neck pain, no sore throat - Breasts Breasts: as per HPI - Cardiovascular Cardiovascular ROS IM: as per HPI, dyspnea, dyspnea on exertion, edema ( Bilateral pedal with cellulitis), irregular heart rhythm, no chest pain, no diaphoresis, no lightheadedness, no palpitations, no syncope - Respiratory Respiratory: as per HPI, cough, dyspnea on exertion, wheezing - Gastrointestinal Gastrointestinal: no abdominal pain, no diarrhea, no hematemesis, no hematochezia, no melena, no nausea, no vomiting - Genitourinary Genitourinary: no change in urinary stream, no dysuria, no flank pain, no hematuria Menstruation: as per HPI - Musculoskeletal Musculoskeletal ROS IM: no numbness, no tingling - Integumentary Integumentary IM: no rash, no unusual bruising - Neurological Neurological ROS: no confusion, no convulsions, no focal weakness, no numbness, no tingling, no tremor(s) - Psychiatric Psychiatric: as per HPI - Endocrine Endocrine IM: as per HPI - Hematologic/Lymphatic Hematologic/Lymphatic: no easy bruising - Allergic/Immunologic Allergic/Immunologic: as per HPI - Constitutional Vitals: Temp Pulse Resp BP Pulse Ox 97.7 F 90 16 154/84 95 05/03/17 19:00 05/03/17 19:00 05/03/17 19:00 05/03/17 19:00 05/03/17 19:00 General appearance: Present: cooperative, mild distress, A&O X 3, morbidly obese , pleasant, answers questions appropriately - Head Head exam: Present: atraumatic, normocephalic - Eye Eye exam: Present: PERRL, conjuntiva pink, sclera anicteric Pupils: Present: PERRL - ENT ENT exam: Present: normal exam, normal external ear exam - Neck Neck exam general surgery: Present: normal inspection, supple, trachea midline. Absent: lymphadenopathy - Respiratory Respiratory exam: Present: accessory muscle use, decreased breath sounds, respiratory distress, wheezes - Cardiovascular Cardiovascular exam: Present: irregular rhythm - GI/Abdominal GI/Abdominal exam: Present: normal bowel sounds, soft, no peritoneal signs. Absent: distended, tenderness - Rectal Rectal exam: Present: deferred - Additional comments: exam deferred. - Extremities Exam Extremities exam: Present: pedal edema, tenderness (Due to cellulitis), warm, radial pulses palpable and symmetrical. Absent: calf tenderness, cyanotic - Back Exam Back exam: Present: normal inspection - Neurological Exam Neurological exam: Present: CN II-XII intact, oriented X3, no focal deficits. Absent: pronater drift, facial droop, speech deficit - Psychiatric Psychiatric exam: Present: normal affect, normal mood - Skin Skin exam: Present: erythema (Bilateral LEs), vesicles (Bilateral LEs due to cellulitis) Internal Med - H&P Results - Labs CBC & Chem 7: 05/03/17 14:35 05/03/17 14:35 - EKG Data Prior EKG available for review: yes EKG comments: 05/03/17 21:29 EKG dated 08/01/16 shows atrial fibrillation with rapid ventricular response. EKG dated 05/03/17 shows atrial fibrillation with nonspecific ST and T-wave abnormality <Awais Petit - Last Filed: 05/04/17 00:45> Date of Encounter: 05/03/17 Time of Encounter: 22:05 - Constitutional Constitutional: no chills, no fever(s) - Cardiovascular Cardiovascular ROS IM: dyspnea, dyspnea on exertion - Respiratory Respiratory: cough, dyspnea on exertion, chest congestion, excessive phlegm production, no pain with cough - Constitutional Vitals: Temp Pulse Resp BP Pulse Ox 97.7 F 90 16 154/84 95 05/03/17 19:00 05/03/17 19:00 05/03/17 19:00 05/03/17 19:00 05/03/17 19:00 General appearance: Present: mild distress, A&O X 3 - Eye Eye exam: Present: PERRL. Absent: scleral icterus - Respiratory Respiratory exam: Present: accessory muscle use, decreased breath sounds, respiratory distress, wheezes. Absent: chest wall tenderness - Cardiovascular Cardiovascular exam: Present: irregular rhythm, +S1, +S2. Absent: diastolic murmur, JVD, systolic murmur - GI/Abdominal GI/Abdominal exam: Present: normal bowel sounds, soft. Absent: tenderness - Back Exam Back exam: Absent: CVA tenderness (L), CVA tenderness (R) Internal Med - H&P Results - Labs CBC & Chem 7: 05/03/17 14:35 05/03/17 14:35 - ABG Interpretation ABG results: 05/04/17 00:05 ABG pH 7.37 ABG pCO2 59 H ABG pO2 73 L ABG HCO3 34 H ABG Total CO2 35.9 H ABG O2 Saturation 94 L ABG Base Excess 7.0 H - Attending Attestation I discussed the patient [id number], PMH, ROS, lab data, and exam findings with [place] CNP. I then saw and examined patient independently as well. Patient complains of worsening COPD symptoms and exhibits typical symptoms and exam findings consistent with that. She continues to smoke nonetheless. Patient was counseled at length on the need to quit smoking. She will be maintained on aerosols, steroids, and antibiotics. We will adjust treatments according to her clinical course. Given the severity of her clinical presentation, I anticipate she'll be hospitalized 2 -3 days and possibly longer. Other than my comments above and noted exam findings, I agree with Moody' s assessment adn plan.
[2017-05-03] MEDS: *HR* HYDROcodone/Acet 5/325 mg TABLET PO PRN (21:45)
[2017-05-03] MEDS: Pantoprazole 40 MG VIAL IVP SCH (22:33)
[2017-05-03] MEDS: APIXABAN 5 MG TABLET PO SCH (22:33)
[2017-05-03] MEDS: Nicotine 14 MG PATCH.TD24 TD SCH (22:38)
[2017-05-03] MEDS: Insulin LISPRO 300 UNITS/3 ML VIAL SQ SCH (22:43)
[2017-05-03] MEDS ORDERED: Vancomycin 1,500 MG in D5% in Water 250 ML IVPB SCH (23:00)
[2017-05-03] MEDS: Budesonide/Formoterol 80/4.5 MDI IH SCH (23:35)
[2017-05-03] MEDS: methylPREDNISolone 125 MG/2 ML VIAL IVP SCH (23:54)
[2017-05-04 00:17] LABS: ABG HCO3 34 mEq/L (21-27); ABG Oxygen Saturation 94 % (95-98); ABG PCO2 59 mmHg (35-45); ABG PH 7.37 pH Units (7.32-7.45); ABG PO2 73 mmHg (85-104); ABG TCO2 35.9 mEq/L (20-26)
[2017-05-04 00:19] LABS: Blood Gas FiO2 36 %
[2017-05-04] MEDS: Piperacillin/Tazobactam 3.375 GM in D5% in Water (Mini-Bag+) 100 ML IVPB SCH ×2 (01:30→09:29)
[2017-05-04] MEDS: *HR* HYDROcodone/Acet 5/325 mg TABLET PO PRN (03:20)
[2017-05-04] MEDS: Benzonatate 100 MG CAPSULE PO PRN ×2 (03:20→14:44)
[2017-05-04] MEDS: Ipratropium/Albuterol Neb 3 ML IH SCH ×6 (03:58→23:34)
[2017-05-04 04:40] LABS: INR 1.3; Prothrombin Time 14.1 Seconds (9.4-12.1)
[2017-05-04 04:53] LABS: Basophils % 0.1 %; Hematocrit 37.6 % (35.3-44.9); Hemoglobin 11.1 g/dL (11.5-15.4); Immature Granulocytes % 1.1 % (0-4); Immature Platelets 3.4 % (1.1-6.1); Lymphocytes # 0.7 K/mcL (0.6-4.6); Lymphocytes % 9.5 %; Mean Corpuscular HGB Conc 29.5 g/dL (31.6-35.5); Mean Corpuscular Hemoglobin 23.9 pg (28.0-33.3); Mean Platelet Volume 9.9 fL (9.4-12.4); Monocytes # 0.1 K/mcL (0.0-1.3); Neutrophils # 6.2 K/mcL (1.6-8.9); Platelet Count 298 K/mcL (140-400); Red Blood Count 4.64 M/mcL (3.82-4.97); Red Cell Distribution Width 15.9 % (11.5-14.5); Segmented Neutrophils % 87.3 %
[2017-05-04 06:14] LABS: Alanine Aminotransferase 17 Units/L (0-55); Albumin 3.2 g/dL (3.5-5.0); Albumin/Globulin Ratio 0.7 (1.1-2.2); Alkaline Phosphatase 105 Units/L (38-126); Aspartate Amino Transferase 16 Units/L (5-34); BUN/Creatinine Ratio 14 (6-26); Blood Urea Nitrogen 13 mg/dL (7-20); Calcium 9.4 mg/dL (8.6-10.8); Carbon Dioxide 29 mEq/L (19-29); Chloride 99 mEq/L (98-109); Cholesterol 138 mg/dL (< 200); Globulin 4.5 g/dL (2.4-3.5); Glucose 183 mg/dL (70-99); HDL Cholesterol 46 mg/dL (40-59); LDL Cholesterol,Calculated 80 mg/dL (0-99); Osmolality,Calculated 293 (280-300); Potassium 4.1 mEq/L (3.5-4.5); Sodium 139 mEq/L (136-145); Total Protein 7.7 g/dL (6.0-8.3); Triglycerides 62 mg/dL (< 150); eGFR For African Americans > 60 (> 60); eGFR For Non-African Americans 59 (> 60)
[2017-05-04 06:15] LABS: Bilirubin,Total < 0.2 mg/dL (0.2-1.2)
[2017-05-04] MEDS: Budesonide/Formoterol 80/4.5 MDI IH SCH ×2 (07:43→22:47)
--- NOTE | 2017-05-04 08:37 | Internal Med Progress Note ---
<Lashell Parham - Last Filed: 05/04/17 11:11> Date of Encounter: 05/04/17 Time of Encounter: 09:23 - Assessment and plan (1) Acute exacerbation of chronic obstructive airways disease Current Visit: Yes Status: Acute Assessment and plan: Hx of COPD non-steriod dependent but oxygen dependent on 2 L nasal cannula at night. Presented to the ED after 2 days of increase use of 2L NC 13/03 and was admitted for acute COPD exacerbation. Has never been hospitalized for COPD and has not used steroids for COPD in about 2 years. Last Monday, patient mentioned she had a head cold as she had nasal congestion, increase cough, and a RAMSAY which was most likely the cause of the exacerbation. CXR was negative for acute process or cardiopulmonary congestion. Home COPD medications include albuterol, Advair, and DuoNeb. Plan: - Solumetrol 60mg IVP Q8hr - Duoneb Q4Hr - Albuterol Q6hr - Tessalon 100mg PO TID prn - Symbicort BID - (2) Cellulitis Current Visit: Yes Status: Chronic Assessment and plan: Chronic hx of cellulitis. Last antibiotic treatment 1 month ago. Currently bilateral LE edema with mild erythema and multiple abrasions. Chronic venous stasis changes to the skin. Patient without an elevated WBC and and afebrile. D /c vanc and zosyn. Switched to Jaden Plan: - Antibiotics: Vancomycin (started 05/03 23:00), Zosyn (05/04 00:00) d/c Rocephin Qualifiers: Site of cellulitis: extremity Site of cellulitis of extremity: lower extremity Laterality: left Qualified Code(s): L03.116 - Cellulitis of left lower limb (3) Afib Current Visit: No Status: Chronic Assessment and plan: Chronic Afib on anticoagulation therapy. Currently rate controlled. We will continue on home medications. Plan: - Elliquis 5mg PO BID - Aspirin n81 mg po daily - Diltiazem 240mg po daily - Digoxin 0.25mg po daily Qualifiers: Atrial fibrillation type: chronic Qualified Code(s): I48.2 - Chronic atrial fibrillation (4) Hypoxia Current Visit: Yes Status: Acute Assessment and plan: On initial presentation to EMS 86% on 2L NC. ED 88% on 2L. Currently on 4L NC satting at 97% Plan: - Continue O2 NC and titrate as tolerated. - intermittent BIPAP as needed (5) GERD (gastroesophageal reflux disease) Current Visit: Yes Status: Chronic Assessment and plan: hx of chronic GERD. Home medication of Prilosec 40mg PO daily. Plan: - Protonix 40mg IVP BID - Zofran prn Qualifiers: Esophagitis presence: esophagitis presence not specified Qualified Code(s) : K21.9 - Gastro-esophageal reflux disease without esophagitis (6) HTN (hypertension) Current Visit: Yes Status: Chronic Assessment and plan: BP currently well controlled on home medications. Will continue home doses. Plan: - Diltizem 240mg PO daily Qualifiers: Hypertension type: essential hypertension Qualified Code(s): I10 - Essential (primary) hypertension (7) Tobacco abuse Current Visit: Yes Status: Acute Assessment and plan: 14mg nicotine patch while inpatient. (8) DVT prophylaxis Current Visit: No Status: Acute Assessment and plan: Patient will continue on home Eliquis dose. (9) Depression Current Visit: Yes Status: Acute Assessment and plan: Continue on home medications. Plan: - Celexa - Wellbutrin Qualifiers: Depression Type: unspecified Qualified Code(s): F32.9 - Major depressive disorder, single episode, unspecified - Subjective Interval history: Patient is a 66-year-old female with a past medical history of COPD nonsteroid dependent oxygen dependent at 2 L and 98 presented to the ED with shortness of breath and increase in oxygen use to 24 hours a day for the last 2 days and was admitted for acute COPD exacerbation. Today, patient says she is coughing less than prior. She denies SOB while sitting in bed. She says her legs are less red than yesterday. She denies dizziness, RAMSAY, CP. She admits to chronic incontinence with coughing. - Constitutional Vitals: Temp Pulse Resp BP Pulse Ox 98.2 F 99 14 120/77 93 05/04/17 08:00 05/04/17 08:00 05/04/17 08:00 05/04/17 08:00 05/04/17 08:00 General appearance: Present: mild distress, A&O X 3 Exam: Constitutional: Alert, in no acute distress, well nourished, well developed. Head: Normocephalic, atraumatic, normal contour and symmetric, no masses, lesions or scars Heart: Normal, regular rate and rhythm, no murmurs Lungs: On 4L NC without increase work of breathing or accessory muscle use, + wheezes scattered diffusely, rhonchi on L lung carmen, Abdomen: Soft, nondistended, nontender, and no masses palpable, no guarding or rigidity. Extremities: bilateral LE edema with mutliple small abrasions with scabbing, mild erythema, skin changes of chronic venous stasis with discoloration, Sweelign +1 pitting edema, capillary refill 3 seconds on legs bilaterally, feet without ulcerations, No clubbing, cyanosis, radial pulse +2/4, Skin: Skin warm and dry, no jaundice Neurologic: Cranial nerves II through XII grossly intact, no focal deficits, strength within normal limits in all extremities Psych: Cooperative with exam, good eye contact, cognitive function intact, judgment good insight good, speech clear, thought process logical, and goal directed Internal Medicine: Result - Labs CBC & Chem 7: 05/04/17 03:27 05/04/17 03:27 Labs: Short CBC 05/04/17 Range/Units 03:27 WBC 7.1 (4.3-11.1) K/mcL Hgb 11.1 L (11.5-15.4) g/dL Hct 37.6 (35.3-44.9) % Plt Count 298 (140-400) K/mcL Neutrophils # 6.2 (1.6-8.9) K/mcL BMP 05/04/17 03:27 Sodium 139 Potassium 4.1 Chloride 99 Carbon Dioxide 29 BUN 13 Creatinine 0.95 Glucose 183 H Calcium 9.4 Liver Function 05/04/17 Range/Units 03:27 Total Bilirubin < 0.2 L (0.2-1.2) mg/dL AST 16 (5-34) Units/L ALT 17 (0-55) Units/L Alkaline Phosphatase 105 (38-126) Units/L Albumin 3.2 L (3.5-5.0) g/dL - ABG Interpretation ABG results: ABG ABG pH 7.37 pH Units (7.32-7.45) 05/04/17 00:05 ABG pCO2 59 mmHg (35-45) H 05/04/17 00:05 ABG pO2 73 mmHg (85-104) L 05/04/17 00:05 ABG O2 Saturation 94 % (95-98) L 05/04/17 00:05 PT/INR, D-dimer PT 14.1 Seconds (9.4-12.1) H 05/04/17 03:27 Consult Discharge Plan - Plan Referrals: Edouard Cole MD [Primary Care Provider] - (Web requested 05/04/17) <Andi Slaughter H - Last Filed: 05/04/17 11:15> Date of Encounter: 05/04/17 - Constitutional Vitals: Temp Pulse Resp BP Pulse Ox 98.2 F 99 14 120/77 93 05/04/17 08:00 05/04/17 08:00 05/04/17 08:00 05/04/17 08:00 05/04/17 08:00 Internal Medicine: Result - Labs CBC & Chem 7: 05/04/17 03:27 05/04/17 03:27 Labs: Short CBC 05/04/17 Range/Units 03:27 WBC 7.1 (4.3-11.1) K/mcL Hgb 11.1 L (11.5-15.4) g/dL Hct 37.6 (35.3-44.9) % Plt Count 298 (140-400) K/mcL Neutrophils # 6.2 (1.6-8.9) K/mcL BMP 05/04/17 03:27 Sodium 139 Potassium 4.1 Chloride 99 Carbon Dioxide 29 BUN 13 Creatinine 0.95 Glucose 183 H Calcium 9.4 Liver Function 05/04/17 Range/Units 03:27 Total Bilirubin < 0.2 L (0.2-1.2) mg/dL AST 16 (5-34) Units/L ALT 17 (0-55) Units/L Alkaline Phosphatase 105 (38-126) Units/L Albumin 3.2 L (3.5-5.0) g/dL - ABG Interpretation ABG results: ABG ABG pH 7.37 pH Units (7.32-7.45) 05/04/17 00:05 ABG pCO2 59 mmHg (35-45) H 05/04/17 00:05 ABG pO2 73 mmHg (85-104) L 05/04/17 00:05 ABG O2 Saturation 94 % (95-98) L 05/04/17 00:05 PT/INR, D-dimer PT 14.1 Seconds (9.4-12.1) H 05/04/17 03:27 - Attending Attestation Acute on chronic hypoxic respiratory failure secondary to acute COPD exacerbation possibly from acute bronchitis viral versus bacterial Continue Solu-Medrol, switched to Rocephin Possible bilateral lower extremity acute cellulitis, mayda Rocephin and discontinue Zosyn and vancomycin I examined this patient and my medical decision-making was reviewed with the Resident Physician. I agree with the documented findings, disposition and treatment plan as described except to the extent set forth below.
[2017-05-04] MEDS ORDERED: (Incruse Ellipta] 62.5 MCG) IH SCH (09:00)
[2017-05-04 09:03] LABS: Hemoglobin A1C 5.7 %
[2017-05-04] MEDS: APIXABAN 5 MG TABLET PO SCH ×2 (09:28→22:17)
[2017-05-04] MEDS: Diltiazem CD (24hr) 240 MG CAPSULE PO SCH (09:28)
[2017-05-04] MEDS: *HR* Digoxin 0.25 MG TABLET PO SCH (09:28)
[2017-05-04] MEDS: Aspirin Enteric Coated 81 MG Tablet PO SCH (09:28)
[2017-05-04] MEDS: methylPREDNISolone 125 MG/2 ML VIAL IVP SCH ×2 (09:28→17:15)
[2017-05-04] MEDS: Nicotine 14 MG PATCH.TD24 TD SCH (09:28)
[2017-05-04] MEDS: Pantoprazole 40 MG VIAL IVP SCH (09:29)
[2017-05-04] MEDS: Insulin LISPRO 300 UNITS/3 ML VIAL SQ SCH ×4 (09:33→22:19)
--- NOTE | 2017-05-04 11:47 | Venous Imaging Report ---
LE Venous Duplex Patient Name:Capri Lewis Order Number:[id number] Procedure Date:05/04/2017 Date:1950ge:66 yrs Gender:Female Location:[facility] Room #: 2A32 Surgical Lead:Pepper Correa, RDCS, RVT Referring MD:Fransisco Park, HOG RIBBER Reading MD:Walter Palafox MD , FACS Primary Indications:Pain in limb Secondary Indications: Risk Factors Yes/No Anticoagulants Yes Impressions: Bilateral lower extremity: normal superficial and deep exam. Recommendations: After imaging the patient returned to their room. Findings Venous Duplex Results: Right: Venous imaging of the lower extremity reveals full patency and normal vessel compressibility of the right distal iliac, right common femoral, right superficial femoral, right popliteal, right posterior tibial, right peroneal, right great saphenous and right lesser saphenous. Doppler signals in the evaluated veins were normal. Left: Venous imaging of the lower extremity reveals full patency and normal vessel compressibility of the left distal iliac, left common femoral, left superficial femoral, left popliteal, left posterior tibial, left peroneal, left great saphenous and left lesser saphenous. Doppler signals in the evaluated veins were normal. Prior Study: No prior study available for comparison. Lower Extremity Venous Duplex Side Vein Compress Spontaneous Flow Augment Diameter (cm) Depth (cm) Right Distal Iliac Normal Yes Phasic Yes Right Common Femoral Normal Yes Phasic Yes Right Superficial Femoral Normal Yes Phasic Yes Right Popliteal Normal Yes Phasic Yes Right Posterior Tibial Normal Yes Phasic Yes Right Peroneal Normal Yes Phasic Yes Right Great Saphenous Normal Yes Phasic Yes Right Lesser Saphenous Normal Yes Phasic Yes Left Distal Iliac Normal Yes Phasic Yes Left Common Femoral Normal Yes Phasic Yes Left Superficial Femoral Normal Yes Phasic Yes Left Popliteal Normal Yes Phasic Yes Left Posterior Tibial Normal Yes Phasic Yes Left Peroneal Normal Yes Phasic Yes Left Great Saphenous Normal Yes Phasic Yes Left Lesser Saphenous Normal Yes Phasic Yes Updated by Walter Palafox MD, FACS on 05/04/2017 11:40:26 AM Walter Palafox MD electronically signed on 05/04/2017 11:40:40 AM with status of Final
[2017-05-04] MEDS ORDERED: Aminoglycoside Consult 1 EACH MC ONE (13:08)
[2017-05-04] MEDS: Miconazole 2% cream 118 GM TUBE TP SCH (22:18)
[2017-05-05] MEDS: methylPREDNISolone 125 MG/2 ML VIAL IVP SCH ×2 (00:24→11:30)
[2017-05-05] MEDS: Benzonatate 100 MG CAPSULE PO PRN ×2 (01:45→21:48)
[2017-05-05 04:11] LABS: Hematocrit 38.6 % (35.3-44.9); Hemoglobin 11.5 g/dL (11.5-15.4); Mean Corpuscular HGB Conc 29.8 g/dL (31.6-35.5); Mean Corpuscular Hemoglobin 24.2 pg (28.0-33.3); Mean Corpuscular Volume 81.3 fL (83.0-100.0); Mean Platelet Volume 9.5 fL (9.4-12.4); Platelet Count 342 K/mcL (140-400); Red Blood Count 4.75 M/mcL (3.82-4.97); Red Cell Distribution Width 15.9 % (11.5-14.5)
[2017-05-05 04:27] LABS: BUN/Creatinine Ratio 24 (6-26); Blood Urea Nitrogen 20 mg/dL (7-20); Calcium 10.2 mg/dL (8.6-10.8); Carbon Dioxide 31 mEq/L (19-29); Chloride 97 mEq/L (98-109); Glucose 150 mg/dL (70-99); Osmolality,Calculated 287 (280-300); Potassium 4.4 mEq/L (3.5-4.5); Sodium 136 mEq/L (136-145); eGFR For African Americans > 60 (> 60); eGFR For Non-African Americans > 60 (> 60)
[2017-05-05] MEDS: Ipratropium/Albuterol Neb 3 ML IH SCH ×6 (06:23→23:01)
--- NOTE | 2017-05-05 07:58 | Internal Med Progress Note ---
<Lashell Parham - Last Filed: 05/05/17 11:29> Date of Encounter: 05/05/17 Time of Encounter: 09:00 - Assessment and plan (1) Acute exacerbation of chronic obstructive airways disease Current Visit: Yes Status: Acute Assessment and plan: Hx of COPD non-steriod dependent but oxygen dependent on 2 L nasal cannula at night. Presented to the ED after 2 days of increase use of 2L NC 13/03 and was admitted for acute COPD exacerbation. Has never been hospitalized for COPD and has not used steroids for COPD in about 2 years. Last Monday, patient mentioned she had a head cold as she had nasal congestion, increase cough, and a RAMSAY which was most likely the cause of the exacerbation. CXR was negative for acute process or cardiopulmonary congestion. Home COPD medications include albuterol, Advair, and DuoNeb. D/c Solumetrol. Switch to oral steroids tomorrow. Plan: - d/c Solumetrol 60mg IVP Q8hr - start prednisone 40mg PO daily - Duoneb Q4Hr - Albuterol Q6hr - Tessalon 100mg PO TID prn - Symbicort BID - (2) Cellulitis Current Visit: Yes Status: Chronic Assessment and plan: Chronic hx of cellulitis. Last antibiotic treatment 1 month ago. Currently bilateral LE edema with mild erythema and multiple abrasions. Chronic venous stasis changes to the skin. Patient without an elevated WBC and and afebrile. D /c vanc and zosyn. Switched to Rocephin. Plan: - Antibiotics: Rocephin IV (started 05/04), will switch to PO Qualifiers: Site of cellulitis: extremity Site of cellulitis of extremity: lower extremity Laterality: left Qualified Code(s): L03.116 - Cellulitis of left lower limb (3) Afib Current Visit: No Status: Chronic Assessment and plan: Chronic Afib on anticoagulation therapy. Currently rate controlled. We will continue on home medications. Plan: - Elliquis 5mg PO BID - Aspirin n81 mg po daily - Diltiazem 240mg po daily - Digoxin 0.25mg po daily Qualifiers: Atrial fibrillation type: chronic Qualified Code(s): I48.2 - Chronic atrial fibrillation (4) Hypoxia Current Visit: Yes Status: Acute Assessment and plan: On initial presentation to EMS 86% on 2L NC. ED 88% on 2L. Currently on 4L NC satting at 94%. Consider weaning as tolerated today. Plan: - Continue O2 NC and titrate as tolerated. - intermittent BIPAP as needed (5) GERD (gastroesophageal reflux disease) Current Visit: Yes Status: Chronic Assessment and plan: hx of chronic GERD. Home medication of Prilosec 40mg PO daily. Plan: - Protonix 40mg IVP BID - Zofran prn Qualifiers: Esophagitis presence: esophagitis presence not specified Qualified Code(s) : K21.9 - Gastro-esophageal reflux disease without esophagitis (6) HTN (hypertension) Current Visit: Yes Status: Chronic Assessment and plan: BP currently well controlled on home medications. Will continue home doses. Plan: - Diltizem 240mg PO daily Qualifiers: Hypertension type: essential hypertension Qualified Code(s): I10 - Essential (primary) hypertension (7) Tobacco abuse Current Visit: Yes Status: Acute Assessment and plan: 14mg nicotine patch while inpatient. (8) DVT prophylaxis Current Visit: No Status: Acute Assessment and plan: Patient will continue on home Eliquis dose. (9) Depression Current Visit: Yes Status: Acute Assessment and plan: Continue on home medications. Plan: - Celexa - Wellbutrin Qualifiers: Depression Type: unspecified Qualified Code(s): F32.9 - Major depressive disorder, single episode, unspecified - Subjective Interval history: Patient is a 66-year-old female with a past medical history of COPD nonsteroid dependent oxygen dependent at 2 L and 98 presented to the ED with shortness of breath and increase in oxygen use to 24 hours a day for the last 2 days and was admitted for acute COPD exacerbation. Today, patient says she is breathing much better than yesterday. Cough is about the same. She denies dizziness, RAMSAY, CP. She admits to chronic incontinence with coughing. - Constitutional Vitals: Temp Pulse Resp BP Pulse Ox 97.6 F 72 18 105/65 93 05/05/17 04:23 05/05/17 04:23 05/05/17 04:23 05/05/17 04:05/05/17 04:23 General appearance: Present: mild distress, A&O X 3 Exam: Constitutional: Alert, in no acute distress, well nourished, well developed. Head: Normocephalic, atraumatic, normal contour and symmetric, no masses, lesions or scars Heart: irregularly irregular, no murmurs Lungs: On 4L NC without increase work of breathing or accessory muscle use, + rhonchi/wheezes scattered diffusely, Abdomen: Soft, nondistended, nontender, and no masses palpable, no guarding or rigidity. Extremities: bilateral LE edema with mutliple small abrasions with scabbing, mild erythema, skin changes of chronic venous stasis with discoloration, Swelling +1 pitting edema, capillary refill 3 seconds on legs bilaterally, feet without ulcerations, No clubbing, cyanosis, radial pulse +2/4, Skin: Skin warm and dry, no jaundice Neurologic: Cranial nerves II through XII grossly intact, no focal deficits, strength within normal limits in all extremities Psych: Cooperative with exam, good eye contact, cognitive function intact, judgment good insight good, speech clear, thought process logical, and goal directed Internal Medicine: Result - Labs CBC & Chem 7: 05/05/17 03:42 05/05/17 03:42 Labs: Short CBC 05/05/17 Range/Units 03:42 WBC 13.6 H D (4.3-11.1) K/mcL Hgb 11.5 (11.5-15.4) g/dL Hct 38.6 (35.3-44.9) % Plt Count 342 (140-400) K/mcL [facility] 05/05/17 03:42 Sodium 136 Potassium 4.4 Chloride 97 L Carbon Dioxide 31 H BUN 20 Creatinine 0.82 Glucose 150 H Calcium 10.2 - ABG Interpretation ABG results: ABG ABG pH 7.37 pH Units (7.32-7.45) 05/04/17 00:05 ABG pCO2 59 mmHg (35-45) H 05/04/17 00:05 ABG pO2 73 mmHg (85-104) L 05/04/17 00:05 ABG O2 Saturation 94 % (95-98) L 05/04/17 00:05 PT/INR, D-dimer PT 14.1 Seconds (9.4-12.1) H 05/04/17 03:27 Consult Discharge Plan - Plan Referrals: Edouard Cole MD [Primary Care Provider] - (Web requested 05/04/17) <Andi Slaughter H - Last Filed: 05/05/17 13:07> Date of Encounter: 05/05/17 - Constitutional Vitals: Temp Pulse Resp BP Pulse Ox 98.3 F 69 22 129/77 95 05/05/17 12:00 05/05/17 12:00 05/05/17 12:00 05/05/17 12:00 05/05/17 12:00 Internal Medicine: Result - Labs CBC & Chem 7: 05/05/17 03:42 05/05/17 03:42 Labs: Short CBC 05/05/17 Range/Units 03:42 WBC 13.6 H D (4.3-11.1) K/mcL Hgb 11.5 (11.5-15.4) g/dL Hct 38.6 (35.3-44.9) % Plt Count 342 (140-400) K/mcL BMP 05/05/17 03:42 Sodium 136 Potassium 4.4 Chloride 97 L Carbon Dioxide 31 H BUN 20 Creatinine 0.82 Glucose 150 H Calcium 10.2 - ABG Interpretation ABG results: ABG ABG pH 7.37 pH Units (7.32-7.45) 05/04/17 00:05 ABG pCO2 59 mmHg (35-45) H 05/04/17 00:05 ABG pO2 73 mmHg (85-104) L 05/04/17 00:05 ABG O2 Saturation 94 % (95-98) L 05/04/17 00:05 PT/INR, D-dimer PT 14.1 Seconds (9.4-12.1) H 05/04/17 03:27 - Attending Attestation Acute on chronic hypoxic respiratory failure secondary to acute COPD exacerbation possibly from acute bronchitis viral versus bacterial Correction: Continue Solu-Medrol, continue Rocephin day 2 May start prednisone in the morning if stable Possible bilateral lower extremity acute cellulitis, improving on Rocephin discontinued Zosyn and vancomycin I examined this patient and my medical decision-making was reviewed with the Resident Physician. I agree with the documented findings, disposition and treatment plan as described except to the extent set forth below.
[2017-05-05] MEDS: Insulin LISPRO 300 UNITS/3 ML VIAL SQ SCH ×4 (09:06→21:48)
[2017-05-05] MEDS: *HR* HYDROcodone/Acet 5/325 mg TABLET PO PRN ×2 (09:09→21:48)
[2017-05-05] MEDS: Budesonide/Formoterol 80/4.5 MDI IH SCH ×2 (10:09→20:22)
[2017-05-05] MEDS: Nicotine 14 MG PATCH.TD24 TD SCH (11:09)
[2017-05-05] MEDS: *HR* Digoxin 0.25 MG TABLET PO SCH (11:10)
[2017-05-05] MEDS: APIXABAN 5 MG TABLET PO SCH ×2 (11:11→21:48)
[2017-05-05] MEDS: Aspirin Enteric Coated 81 MG Tablet PO SCH (11:11)
[2017-05-05] MEDS: Diltiazem CD (24hr) 240 MG CAPSULE PO SCH (11:11)
[2017-05-05] MEDS: Miconazole 2% cream 118 GM TUBE TP SCH ×2 (11:14→21:51)
[2017-05-05] MEDS: MethylPREDNISolone 40 MG/ML VIAL IVP SCH ×2 (17:30→23:45)
[2017-05-06] MEDS: Ipratropium/Albuterol Neb 3 ML IH SCH ×6 (03:53→22:32)
[2017-05-06] MEDS: *HR* HYDROcodone/Acet 5/325 mg TABLET PO PRN ×2 (04:34→20:57)
[2017-05-06 06:25] LABS: Basophils % 0.1 %; Hemoglobin 11.4 g/dL (11.5-15.4); Immature Granulocytes % 1.2 % (0-4); Mean Corpuscular Hemoglobin 24.5 pg (28.0-33.3); Mean Corpuscular Volume 81.7 fL (83.0-100.0); Mean Platelet Volume 9.6 fL (9.4-12.4); Monocytes # 0.4 K/mcL (0.0-1.3); Monocytes % 2.8 %; Neutrophils # 10.9 K/mcL (1.6-8.9); Platelet Count 347 K/mcL (140-400); Red Blood Count 4.65 M/mcL (3.82-4.97); Segmented Neutrophils % 87.9 %
[2017-05-06 06:34] LABS: BUN/Creatinine Ratio 25 (6-26); Blood Urea Nitrogen 21 mg/dL (7-20); Calcium 9.9 mg/dL (8.6-10.8); Carbon Dioxide 31 mEq/L (19-29); Chloride 97 mEq/L (98-109); Glucose 165 mg/dL (70-99); Osmolality,Calculated 289 (280-300); Potassium 4.7 mEq/L (3.5-4.5); Sodium 136 mEq/L (136-145); eGFR For African Americans > 60 (> 60); eGFR For Non-African Americans > 60 (> 60)
[2017-05-06] MEDS: APIXABAN 5 MG TABLET PO SCH ×2 (08:18→20:44)
[2017-05-06] MEDS: *HR* Digoxin 0.25 MG TABLET PO SCH (08:18)
[2017-05-06] MEDS: Diltiazem CD (24hr) 240 MG CAPSULE PO SCH (08:18)
[2017-05-06] MEDS: Nicotine 14 MG PATCH.TD24 TD SCH (08:19)
[2017-05-06] MEDS: Aspirin Enteric Coated 81 MG Tablet PO SCH (08:19)
[2017-05-06] MEDS: MethylPREDNISolone 40 MG/ML VIAL IVP SCH ×2 (08:20→17:08)
[2017-05-06] MEDS: Insulin LISPRO 300 UNITS/3 ML VIAL SQ SCH ×4 (08:20→20:44)
[2017-05-06] MEDS: Budesonide/Formoterol 80/4.5 MDI IH SCH ×2 (09:43→22:22)
[2017-05-06] MEDS: Miconazole 2% cream 118 GM TUBE TP SCH ×2 (11:17→20:46)
--- NOTE | 2017-05-06 13:44 | Internal Med Progress Note ---
<Fransisco Jack - Last Filed: 05/06/17 16:27> Date of Encounter: 05/06/17 Time of Encounter: 13:42 - Assessment and plan (1) Acute and chronic respiratory failure Current Visit: Yes Status: Acute Assessment and plan: 66-year-old female known COPD who wears oxygen's 2 L nasal cannula only at rest while sleeping was admitted with hypoxia, tachypnea, diffuse wheezing, increased sputum production and required 4 L nasal cannula oxygen to maintain oxygen saturations greater than 90% - Improving as treating underlying medical conditions. Qualifiers: Qualified Code(s): J96.20 - Acute and chronic respiratory failure, unspecified whether with hypoxia or hypercapnia (2) Acute exacerbation of chronic obstructive airways disease Current Visit: Yes Status: Acute Assessment and plan: Hx of COPD non-steriod dependent but oxygen dependent on 2 L nasal cannula at night. Upon admission she required 4 L of nasal cannula oxygen throughout the day, she is currently down to 2 L nasal cannula oxygen with oxygen saturations greater than 95%. Clinically she is improving but continues to have signs of exacerbated COPD. Plan: - d/c Solumetrol 60mg IVP Q8hr - start prednisone 40mg PO daily - Duoneb Q4Hr - Albuterol Q6hr - Tessalon 100mg PO TID prn - Symbicort BID - (3) Morbid obesity Current Visit: No Status: Chronic Assessment and plan: Patient has a BMI of 54.1 which is likely continuing to her chronic medical conditions. Patient would benefit from weight loss, dietary modifications to reduce her risk of further exacerbating current medical problems. (4) GERD (gastroesophageal reflux disease) Current Visit: Yes Status: Chronic Assessment and plan: hx of chronic GERD. Home medication of Prilosec 40mg PO daily. Plan: - Protonix 40mg IVP BID - Zofran prn Qualifiers: Esophagitis presence: esophagitis presence not specified Qualified Code(s) : K21.9 - Gastro-esophageal reflux disease without esophagitis (5) HTN (hypertension) Current Visit: Yes Status: Chronic Assessment and plan: BP currently well controlled on home medications. Will continue home doses. Plan: - Diltizem 240mg PO daily Qualifiers: Hypertension type: essential hypertension Qualified Code(s): I10 - Essential (primary) hypertension (6) Tobacco abuse Current Visit: Yes Status: Acute Assessment and plan: 14mg nicotine patch while inpatient. (7) Depression Current Visit: Yes Status: Acute Assessment and plan: Continue on home medications. Plan: - Celexa - Wellbutrin Qualifiers: Depression Type: unspecified Qualified Code(s): F32.9 - Major depressive disorder, single episode, unspecified (8) DVT prophylaxis Current Visit: No Status: Acute Assessment and plan: Patient will continue on home Eliquis dose. - Subjective Interval history: Ms. Lewis has been seen and evaluated patient bedside. She is awake alert and interactive no acute distress. She said that her breathing is improved overnight and she does have a productive cough with white sputum. She denies any fevers, chills, nausea vomiting diarrhea constipation. There have been no other significant changes. She does however feel that the redness in her lower extremities has improved but she has had chronic venous stasis of the bilateral lower extremities. - Constitutional Vitals: Temp Pulse Resp BP Pulse Ox 98.1 F 71 20 119/77 95 05/06/17 11:42 05/06/17 11:42 05/06/17 11:42 05/06/17 11:42 05/06/17 11:42 General appearance: Present: mild distress, A&O X 3 Exam: General: Patient alert, awake, oriented 3, interactive, in no acute distress HEENT: Normocephalic, atraumatic, pupils equal reactive to light, nasal cavity patent and open septum median position, oral mucosa moist, uvula midline, neck supple trachea midline no palpable lymphadenopathy, no thyromegaly. Chest: Symmetric bilateral correlating with respiratory effort, effort nonlabored. Cardiac: Irregularly irregular heart rate and rhythm. no bruits appreciated bilateral carotids, Radial pulses 2+ bilateral, posterior tibial and dorsal pedal pulses 2+ bilateral. Respiratory: Diminished bronchial vesicular breath sounds with mild diffuse wheeze Abdomen: Soft, nontender, positive bowel sounds, no palpable masses appreciated on examination Extremities: Symmetric bilateral, bilateral lower extremity 1+ edema with mild erythema improved from previous day, skin changes associated with venous stasis dermatitis. patient moving all 4 extremities spontaneously. Neurologic: No focal deficits appreciated on examination. Face symmetric, muscle strength symmetric bilateral upper and lower extremities. Internal Medicine: Result - Labs CBC & Chem 7: 05/06/17 05:50 05/06/17 05:50 Labs: Short CBC 05/06/17 Range/Units 05:50 WBC 12.4 H (4.3-11.1) K/mcL Hgb 11.4 L (11.5-15.4) g/dL Hct 38.0 (35.3-44.9) % Plt Count 347 (140-400) K/mcL Neutrophils # 10.9 H (1.6-8.9) K/mcL BMP 05/06/17 05:50 Sodium 136 Potassium 4.7 H Chloride 97 L Carbon Dioxide 31 H BUN 21 H Creatinine 0.84 Glucose 165 H Calcium 9.9 - ABG Interpretation ABG results: ABG ABG pH 7.37 pH Units (7.32-7.45) 05/04/17 00:05 ABG pCO2 59 mmHg (35-45) H 05/04/17 00:05 ABG pO2 73 mmHg (85-104) L 05/04/17 00:05 ABG O2 Saturation 94 % (95-98) L 05/04/17 00:05 PT/INR, D-dimer PT 14.1 Seconds (9.4-12.1) H 05/04/17 03:27 Consult Discharge Plan - Plan Referrals: Edouard Cole MD [Primary Care Provider] - (Web requested 05/04/17) <Nikita Archuleta - Last Filed: 05/06/17 19:02> Date of Encounter: 05/06/17 - Assessment and plan (1) Acute and chronic respiratory failure Current Visit: Yes Status: Acute Qualifiers: Respiratory failure complication: hypoxia Qualified Code(s): J96.21 - Acute and chronic respiratory failure with hypoxia (2) Acute exacerbation of chronic obstructive airways disease Current Visit: Yes Status: Acute (3) Tobacco abuse Current Visit: Yes Status: Acute (4) GERD (gastroesophageal reflux disease) Current Visit: Yes Status: Chronic Qualifiers: Esophagitis presence: esophagitis presence not specified Qualified Code(s) : K21.9 - Gastro-esophageal reflux disease without esophagitis (5) HTN (hypertension) Current Visit: Yes Status: Chronic Qualifiers: Hypertension type: essential hypertension Qualified Code(s): I10 - Essential (primary) hypertension (6) Morbid obesity with BMI of 50.0-59.9, adult Current Visit: No Status: Chronic - Constitutional Vitals: Temp Pulse Resp BP Pulse Ox 98.4 F 72 18 125/73 92 05/06/17 16:02 05/06/17 16:02 05/06/17 16:21 05/06/17 16:02 05/06/17 16:21 Internal Medicine: Result - Labs CBC & Chem 7: 05/06/17 05:50 05/06/17 05:50 Labs: Short CBC 05/06/17 Range/Units 05:50 WBC 12.4 H (4.3-11.1) K/mcL Hgb 11.4 L (11.5-15.4) g/dL Hct 38.0 (35.3-44.9) % Plt Count 347 (140-400) K/mcL Neutrophils # 10.9 H (1.6-8.9) K/mcL BMP 05/06/17 05:50 Sodium 136 Potassium 4.7 H Chloride 97 L Carbon Dioxide 31 H BUN 21 H Creatinine 0.84 Glucose 165 H Calcium 9.9 - ABG Interpretation ABG results: ABG ABG pH 7.37 pH Units (7.32-7.45) 05/04/17 00:05 ABG pCO2 59 mmHg (35-45) H 05/04/17 00:05 ABG pO2 73 mmHg (85-104) L 05/04/17 00:05 ABG O2 Saturation 94 % (95-98) L 05/04/17 00:05 PT/INR, D-dimer PT 14.1 Seconds (9.4-12.1) H 05/04/17 03:27 - Attending Attestation I examined this patient and my medical decision-making was reviewed with the Resident Physician on 05/06/17. I agree with the documented findings, disposition and treatment plan as described except to the extent set forth below. Ms. Lewis is currently admitted for respiratory failure and COPD. She remains moderate to high risk due to potential for worsening respiratory status. Ms Lewis is able to go a little bit without her oxygen. No CP. No fever or chills. Having trouble with her computer. Exam Alert. Comfortable at rest Mucus membranes dry Heart reg Lungs with diffuse end exp wheeze Abd soft No edema I/P 1. Hypoxia 2. COPD Further diagnoses and plan as above.
[2017-05-07 03:36] LABS: Basophils % 0.2 %; Hematocrit 39.3 % (35.3-44.9); Hemoglobin 11.5 g/dL (11.5-15.4); Immature Granulocytes % 2.7 % (0-4); Lymphocytes # 0.8 K/mcL (0.6-4.6); Mean Corpuscular HGB Conc 29.3 g/dL (31.6-35.5); Mean Corpuscular Hemoglobin 23.6 pg (28.0-33.3); Mean Corpuscular Volume 80.7 fL (83.0-100.0); Mean Platelet Volume 9.7 fL (9.4-12.4); Monocytes # 0.5 K/mcL (0.0-1.3); Neutrophils # 8.5 K/mcL (1.6-8.9); Platelet Count 362 K/mcL (140-400); Red Blood Count 4.87 M/mcL (3.82-4.97); Red Cell Distribution Width 15.7 % (11.5-14.5); Segmented Neutrophils % 84.1 %
[2017-05-07] MEDS: Ipratropium/Albuterol Neb 3 ML IH SCH ×3 (03:42→10:43)
[2017-05-07 03:52] LABS: Alanine Aminotransferase 47 Units/L (0-55); Albumin 3.3 g/dL (3.5-5.0); Albumin/Globulin Ratio 0.8 (1.1-2.2); Alkaline Phosphatase 96 Units/L (38-126); Aspartate Amino Transferase 24 Units/L (5-34); BUN/Creatinine Ratio 26 (6-26); Bilirubin,Total 0.4 mg/dL (0.2-1.2); Blood Urea Nitrogen 24 mg/dL (7-20); Calcium 9.6 mg/dL (8.6-10.8); Carbon Dioxide 28 mEq/L (19-29); Chloride 97 mEq/L (98-109); Globulin 4.2 g/dL (2.4-3.5); Glucose 227 mg/dL (70-99); Osmolality,Calculated 291 (280-300); Potassium 4.3 mEq/L (3.5-4.5); Sodium 135 mEq/L (136-145); Total Protein 7.5 g/dL (6.0-8.3); eGFR For African Americans > 60 (> 60); eGFR For Non-African Americans > 60 (> 60)
[2017-05-07] MEDS: Insulin LISPRO 300 UNITS/3 ML VIAL SQ SCH ×2 (08:09→12:00)
[2017-05-07] MEDS ORDERED: predniSONE 20 MG TABLET PO SCH (09:00)
[2017-05-07] MEDS: *HR* Digoxin 0.25 MG TABLET PO SCH (09:06)
[2017-05-07] MEDS: Nicotine 14 MG PATCH.TD24 TD SCH (09:06)
[2017-05-07] MEDS: APIXABAN 5 MG TABLET PO SCH (09:06)
[2017-05-07] MEDS: Diltiazem CD (24hr) 240 MG CAPSULE PO SCH (09:06)
[2017-05-07] MEDS: Aspirin Enteric Coated 81 MG Tablet PO SCH (09:06)
[2017-05-07] MEDS: Miconazole 2% cream 118 GM TUBE TP SCH (09:07)
[2017-05-07] MEDS: Budesonide/Formoterol 80/4.5 MDI IH SCH (10:42)
--- NOTE | 2017-05-07 11:10 | Physician Discharge Referral ---
Home Health/Hosp Referral Info Provider in Charge Post Discharge: PCP - Diagnosis (1) Acute and chronic respiratory failure Priority: Primary Status: Acute (2) Acute exacerbation of chronic obstructive airways disease Priority: Primary Status: Acute (3) Morbid obesity Priority: Secondary Status: Chronic (4) GERD (gastroesophageal reflux disease) Priority: Secondary Status: Chronic (5) HTN (hypertension) Priority: Secondary Status: Chronic (6) Tobacco abuse Priority: Secondary Status: Acute (7) Depression Priority: Secondary Status: Acute (8) DVT prophylaxis Priority: Secondary Status: Acute - Respiratory Orders Smoking Cessation: Smoking cessation has been advised. For more information, call the [place] Tobacco Quit Line at 9-075-NCXA-NOW. - Diet/Nutrition Diet/Nutrition Orders: Regular - Activity Activity Orders: Walker - Services Needed Following services are medically necessary services: Nursing, Home Health Aide, Physical Therapy, Occupational Therapy - Transfer Medications Home Medications: Albuterol Sulfate [Ventolin Hfa] 2 puff IH Q6H PRN 03/13/16 [History] Apixaban [Eliquis] 5 mg PO Q12H 03/13/16 [History] Aspirin Enteric Coated [Aspirin EC] 81 mg PO DAILY 03/13/16 [History] BuPROPion [Wellbutrin] 100 mg PO BID 03/13/16 [History] Calcium Carbonate/Vitamin D3 [Oyster Shell Calcium-Vit D Tab] 500 mg PO BID [History] Citalopram [CeleXA] 60 mg PO DAILY 03/13/16 [History] Digoxin [Lanoxin] 0.25 mg PO DAILY 03/13/16 [History] Ferrous Sulfate 325 mg PO BIDWM 03/13/16 [History] Ipratropium/Albuterol Neb [Duoneb] 3 ml IH Q6HR PRN 03/13/16 [History] Umeclidinium [place] [Incruse Ellipta] 62.5 mcg IH DAILY 08/01/16 [History] Mv,Ca,Min/Iron Fum/FA/Lyco/Lut [Sentry Multivit & Mineral Cplt] 1 tab PO DAILY 10/12/16 [History] Omeprazole [PriLOSEC] 40 mg PO DAILY 10/12/16 [History] Oxygen 2 l NS AD PRN 10/12/16 [History] Diltiazem HCl [Diltiazem ER] 240 mg PO DAILY 05/03/17 [History] Fluticasone/Salmeterol [Advair 250-50 Diskus] 1 each IH BID 05/03/17 [History] Furosemide [Lasix] 80 mg PO BID 05/03/17 [History] Allergies/Adverse Reactions: 3 Allergy/AdvReac Type Severity Reaction Status Date / Time lisinopril AdvReac Cough Verified 10/12/16 13:53 Certification: Further, I certify that my clinical findings support that this patient is homebound (i.e. absences from home require considerable and taxing effort and are for medical reasons or sabianist services or infrequently or short duration when for other reasons) because: Homebound Reason: Patient requires assistance of a person or device to safely leave home, Leaving home requires considerable and taxing effort due to condition, Severity of cardiac or pulmonary status limits activity tolerance Attestation: My signature below is to certify that this patient is under my care and that I, or nurse practitioner, or a physician's undertaker assistant working with me, has a face-to -face encounter with this patient.
--- NOTE | 2017-05-07 11:13 | Discharge Summary ---
<BrookeifeanyiFransisco Pruitt - Last Filed: 05/07/17 11:10> Date of Encounter: 05/07/17 Time of Encounter: 11:10 - Discharge Diagnosis (1) Acute and chronic respiratory failure Priority: Primary Status: Resolved Qualifiers: Respiratory failure complication: hypoxia Qualified Code(s): J96.21 - Acute and chronic respiratory failure with hypoxia (2) Acute exacerbation of chronic obstructive airways disease Priority: Primary Status: Acute (3) Morbid obesity Priority: Secondary Status: Chronic (4) GERD (gastroesophageal reflux disease) Priority: Secondary Status: Chronic Qualifiers: Esophagitis presence: esophagitis presence not specified Qualified Code(s) : K21.9 - Gastro-esophageal reflux disease without esophagitis (5) HTN (hypertension) Priority: Secondary Status: Chronic Qualifiers: Hypertension type: essential hypertension Qualified Code(s): I10 - Essential (primary) hypertension (6) Tobacco abuse Priority: Secondary Status: Acute (7) Depression Priority: Secondary Status: Acute Qualifiers: Depression Type: unspecified Qualified Code(s): F32.9 - Major depressive disorder, single episode, unspecified (8) DVT prophylaxis Priority: Secondary Status: Acute - Discharge Medications Prescriptions: predniSONE [PredniSONE] 40 mg PO DAILY 3 Days Home Medications: Albuterol Sulfate [Ventolin Hfa] 2 puff IH Q6H PRN 03/13/16 [History] Apixaban [Eliquis] 5 mg PO Q12H 03/13/16 [History] Aspirin Enteric Coated [Aspirin EC] 81 mg PO DAILY 03/13/16 [History] BuPROPion [Wellbutrin] 100 mg PO BID 03/13/16 [History] Calcium Carbonate/Vitamin D3 [Oyster Shell Calcium-Vit D Tab] 500 mg PO BID [History] Citalopram [CeleXA] 60 mg PO DAILY 03/13/16 [History] Digoxin [Lanoxin] 0.25 mg PO DAILY 03/13/16 [History] Ferrous Sulfate 325 mg PO BIDWM 03/13/16 [History] Ipratropium/Albuterol Neb [Duoneb] 3 ml IH Q6HR PRN 03/13/16 [History] Umeclidinium [place] [Incruse Ellipta] 62.5 mcg IH DAILY 08/01/16 [History] Mv,Ca,Min/Iron Fum/FA/Lyco/Lut [Sentry Multivit & Mineral Cplt] 1 tab PO DAILY 10/12/16 [History] Omeprazole [PriLOSEC] 40 mg PO DAILY 10/12/16 [History] Oxygen 2 l NS AD PRN 10/12/16 [History] Diltiazem HCl [Diltiazem ER] 240 mg PO DAILY 05/03/17 [History] Fluticasone/Salmeterol [Advair 250-50 Diskus] 1 each IH BID 05/03/17 [History] Furosemide [Lasix] 80 mg PO BID 05/03/17 [History] predniSONE [PredniSONE] 40 mg PO DAILY 3 Days 05/07/17 [Rx] Allergies/Adverse Reactions: 3 Allergy/AdvReac Type Severity Reaction Status Date / Time lisinopril AdvReac Cough Verified 10/12/16 13:53 Date of admission: 05/03/17 20:38 Primary care physician: Edouard Cole MD Consults: 05/03/17 20:51 Consult to Vehicle Service Attendant [CONS] Routine Reason for SW Consult: Patient wants information regarding POA paperwork and procedures Consult to Wound Care [CONS] Routine Reason for Consult: Patient has cellulitis of bilateral LEs...some with scabbing. Call Completed: No Discharging clinician: Fransisco Jack Anticipated date of discharge: 05/07/17 - Patient Status Disposition: Home Health Service Condition: Good Functional capacity at discharge: uses cane/walker Overall status at discharge: patient is progressing back to baseline - Discharge Instructions Instructions: Acute Respiratory Distress Syndrome (DC), Chronic Obstructive Pulmonary Disease (DC) Follow Up With: Edouard Cole MD [Primary Care Provider] - (Web requested 05/04/17) Additional Instructions: Follow-up with your primary care provider in the next 3-5 days for further evaluation. - Take medications as prescribed - Continue with home health, increase exercise as tolerated. - Diet and Activity Activity: ambulate only with your walker, increase activity as tolerated, resume usual activities as tolerated, wear oxygen at night Diet: low fat, low cholesterol, low salt diet Interval History: Mrs. Lewis, 66-year-old female with known history of atrial fibrillation, COPD , GERD, hypertension and morbid obesity was admitted to the emergency department with acute on chronic respiratory failure, COPD exacerbation and concern for bilateral lower extremity cellulitis. She was admitted to general medical floor placed on nasal cannula oxygen started on IV steroids and IV antibiotics including Zosyn. The patient reportedly was on 2 L nasal cannula oxygen at rest and sleep, but currently required 4 L nasal cannula oxygen to maintain oxygen saturations greater than 90%. During her inpatient stay she Hospital course: Ms. Lewis is a 66 year old female - Time Spent with Patient Total time spent providing and/or coordinating discharge services: - Constitutional Vitals: Temp Pulse Resp BP Pulse Ox 97.4 F L 85 18 152/87 93 05/07/17 07:57 05/07/17 07:57 05/07/17 07:57 05/07/17 07:57 05/07/17 09:27 General appearance: Present: mild distress, A&O X 3 Exam: General: Patient alert, awake, oriented 3, interactive, in no acute distress HEENT: Normocephalic, atraumatic, pupils equal reactive to light, nasal cavity patent and open septum median position, oral mucosa moist, uvula midline, neck supple trachea midline no palpable lymphadenopathy, no thyromegaly. Chest: Symmetric bilateral correlating with respiratory effort, effort nonlabored. Cardiac: Irregularly irregular heart rate and rhythm. no bruits appreciated bilateral carotids, Radial pulses 2+ bilateral, posterior tibial and dorsal pedal pulses 2+ bilateral. Respiratory: Wheezing has resolved, continues with reduced is return expiratory breath sounds, likely chronic Abdomen: Soft, nontender, positive bowel sounds, no palpable masses appreciated on examination Extremities: Symmetric bilateral, bilateral lower extremity 1+ edema with mild erythema, skin changes associated with venous stasis dermatitis. patient moving all 4 extremities spontaneously. Neurologic: No focal deficits appreciated on examination. Face symmetric, muscle strength symmetric bilateral upper and lower extremities. <Nikita Archuleta - Last Filed: 05/07/17 20:04> Date of Encounter: 05/07/17 - Discharge Diagnosis (1) Acute and chronic respiratory failure Status: Resolved Qualifiers: Respiratory failure complication: hypoxia Qualified Code(s): J96.21 - Acute and chronic respiratory failure with hypoxia (2) Acute exacerbation of chronic obstructive airways disease Status: Acute (3) Tobacco abuse Status: Acute (4) GERD (gastroesophageal reflux disease) Status: Chronic Qualifiers: Esophagitis presence: esophagitis presence not specified Qualified Code(s) : K21.9 - Gastro-esophageal reflux disease without esophagitis (5) HTN (hypertension) Status: Chronic Qualifiers: Hypertension type: essential hypertension Qualified Code(s): I10 - Essential (primary) hypertension (6) Morbid obesity with BMI of 50.0-59.9, adult Status: Chronic Date of admission: 05/03/17 20:38 Primary care physician: Edouard Cole MD Consults: 05/03/17 20:51 Consult to Vehicle Service Attendant [CONS] Routine Reason for SW Consult: Patient wants information regarding POA paperwork and procedures Consult to Wound Care [CONS] Routine Reason for Consult: Patient has cellulitis of bilateral LEs...some with scabbing. Call Completed: No Hospital course: Ms. Lewis is a 66 year old female - Time Spent with Patient Total time spent providing and/or coordinating discharge services: 38min - Constitutional Vitals: Temp Pulse Resp BP Pulse Ox 98.2 F 54 18 144/90 90 05/07/17 11:57 05/07/17 11:57 05/07/17 11:57 05/07/17 11:57 05/07/17 11:57 - Attending Attestation I examined this patient and my medical decision-making was reviewed with the Resident Physician on 05/07/17. I agree with the documented findings, disposition and treatment plan as described except to the extent set forth below. Ms. Lewis has been admitted for acute copd exac. She is now afebrile with stable vitals. She feels nearly baseline. She is ready for discharge home. Exam alert. Comfortable Heart reg Scant wheeze Abd soft No edema Plan D/C home
[2017-05-07 11:58] VITALS: BP 144/90
--- NOTE | 2017-05-08 17:28 | Electrocardiograph Report ---
[place] [id number] Test Date: 2017-05-03 Pat Name: Capri Lewis Department: 104 Room: 2A32 Gender: F Nursing Professor: [facility] : 1950 Requested By: Nikkie Calderon Order Number: [id number] Reading MD: Jeffrey Payan MD Measurements Intervals [place] Rate: 84 P: [place]: 0 QRS: 51 QRSD: 101 T: -12 QT: 378 QTc: 419 Interpretive Statements ATRIAL FIBRILLATION Electronically Signed On 05-08-2017 17:26:47 EDT by Jeffrey Payan MD
== END 2017-05-07 13:09 | disposition home health service (06) | DRG 190 ==
LOC: EMEROO 14:06 → 2ANU 14:06 → SUATTDRO 20:38 → UNDODISIN 05-07 12:35
PROVIDERS: ADMIT Internal Medicine; ATTEND Internal Medicine

== ENCOUNTER 2017-06-19 10:07 | Inpatient (IN) ==
[2017-06-19] MEDS ORDERED: methylPREDNISolone 125 MG/2 ML VIAL IVP ONE (10:12)
[2017-06-19] MEDS ORDERED: Ipratropium/Albuterol Neb 3 ML IH ONE (10:12)
[2017-06-19] MEDS ORDERED: Albuterol 2.5 MG/3 ML NEBULIZER IH ONE (10:12)
[2017-06-19] MEDS ORDERED: Ipratropium/Albuterol Neb 3 ML ONE (10:15)
--- NOTE | 2017-06-19 10:27 | Emergency Department Note ---
Disposition Clinical Impression: COPD exacerbation, Respiratory distress, Chronic atrial fibrillation Pneumonia Qualifiers: Pneumonia type: due to unspecified organism Laterality: unspecified laterality Lung location: unspecified part of lung Qualified Code(s): J18.9 - Pneumonia, unspecified organism Disposition: Admitted As Inpatient Condition: Good Time of Disposition: 11:40 General Adult HPI - General Chief complaint: ED Shortness of Breath/Dyspnea Stated complaint: COPD Time Seen by Provider: 06/19/17 10:12 Source: EMS Mode of arrival: EMS Limitations: no limitations Nursing Notes Reviewed: Yes Vital Signs Reviewed: Yes - History of Present Illness HPI Narrative: 66-year-old female presenting to the emergency department with chief complaint of shortness of breath. Patient has significant past medical history of COPD along with A. fib. Patient states for the past 3 days she is having increased congestion and upper respiratory infection signs. She has had minimal cough. She states last night she felt febrile but did not take her temperature. She denies any sick contacts or recent travel. Patient denies any chest pain, dizziness, abdominal pain. She states her only complaint is difficulty in breathing. In the room she is audibly wheezing. Patient states she had to increase her oxygen at night from 2-3 L last night but it only minimally helped. She also tried a nebulizer yesterday with moderate help. Pain Scale: 0 - Related Data Home Medications Medication Instructions Recorded Confirmed Albuterol Sulfate [Ventolin Hfa] 2 puff IH Q6H PRN 03/13/16 06/19/17 Apixaban [Eliquis] 5 mg PO Q12H 03/13/16 06/19/17 Aspirin Enteric Coated [Aspirin EC] 81 mg PO DAILY 03/13/16 06/19/17 BuPROPion [Wellbutrin] 100 mg PO BID 03/13/16 06/19/17 Calcium Carbonate/Vitamin D3 500 mg PO BID 03/13/16 06/19/17 [Oyster Shell Calcium-Vit D Tab] Citalopram [CeleXA] 60 mg PO DAILY 03/13/16 06/19/17 Digoxin [Lanoxin] 0.25 mg PO DAILY 03/13/16 06/19/17 Ferrous Sulfate 325 mg PO BIDWM 03/13/16 06/19/17 Ipratropium/Albuterol Neb [Duoneb] 3 ml IH Q6HR PRN 03/13/16 06/19/17 Umeclidinium [place] [Incruse 62.5 mcg IH DAILY 08/01/16 06/19/17 Ellipta] Mv,Ca,Min/Iron Fum/FA/Lyco/Lut 1 tab PO DAILY 10/12/16 06/19/17 [Sentry Multivit & Mineral Cplt] Omeprazole [PriLOSEC] 40 mg PO DAILY 10/12/16 06/19/17 Oxygen 2 l NS AD PRN 10/12/16 06/19/17 Diltiazem HCl [Diltiazem ER] 240 mg PO DAILY 05/03/17 06/19/17 Furosemide [Lasix] 80 mg PO BID 05/03/17 06/19/17 Budesonide/Formoterol 160/4.5 2 puff IH BIDR 06/19/17 06/19/17 [Symbicort 160/4.5] Allergies Allergy/AdvReac Type Severity Reaction Status Date / Time lisinopril AdvReac Cough Verified 06/19/17 10:12 All systems ED: reviewed and negative except as stated. Constitutional: Reports: fever (Subjective). Denies: weakness Eyes: Reports: as per HPI ENT ED: Reports: as per HPI Cardiovascular: Denies: chest pain, palpitations Respiratory: Reports: cough, dyspnea, wheezes. Denies: hemoptysis, stridor Gastrointestinal: Denies: abdominal pain, nausea, vomiting Genitourinary: Reports: as per HPI Musculoskeletal: Reports: as per HPI Integumentary: Reports: as per HPI Neurological: Denies: weakness, numbness, paresthesias Psychiatric: Reports: as per HPI Endocrine: Reports: as per HPI Hematological/Lymphatic: Reports: as per HPI Allergic/Immunologic: Reports: as per HPI Past Medical History - Past Medical History Attestation: Yes The following information was validated with the patient. Medical history: Reports: atrial fibrillation, COPD, GERD, hypertension, other Surgical history: Reports: knee replacement, other (D&C, tonsillectomy) Psychiatric history: Reports: depression ADMINISTRATIVE SPECIALIST history: Reports: no ADMINISTRATIVE SPECIALIST history - Social History Smoking Status: Current every day smoker Smokeless Tobacco Status: No Alcohol use: Reports: none Drug use: Reports: none Physical Exam - General Limitations: no limitations General appearance: alert, in no apparent distress - Head Head exam: atraumatic, normocephalic, normal inspection - Eye Eye exam: Present: normal appearance. Absent: scleral icterus, conjunctival injection - Chest Chest inspection: Present: normal inspection, symmetric chest wall rise. Absent : tenderness, rash - Respiratory Respiratory exam: Present: other (Diffuse wheezing anterior and posterior bilateral lung carmen. Audible wheezing heard in the room. Patient has truncated sentences due to difficulty in breathing.) - Cardiovascular Cardiovascular exam: Present: normal rhythm, tachycardia, normal heart sounds - Abdominal Exam Abdominal exam: Present: soft, Non-Tender. Absent: distention, guarding, rebound - Extremities Exam Extremities exam: Present: normal inspection, full ROM - Neurological Exam Neurological exam: Present: alert, oriented X3 - Psychiatric Psychiatric exam: Present: normal affect, normal mood - Skin Skin exam: Present: warm, intact Course Course Narrative: 66-year-old female presenting to the emergency department with chief complaint of difficulty breathing. Patient has significant history of COPD. Patient has audible wheezing in the room. Patient placed on 4 L nasal cannula with oxygen saturation in the upper 90s at this time. Patient's vitals are otherwise stable at this time. We will begin workup including chest x-ray, breathing treatments, steroids, EKG, troponin, basic lab work. Disposition will most likely be admission. Patient increase of this plan. She is alert and oriented 3 in the room at this time. - Reevaluation(s) Reevaluation #1: Patient states she is feeling better after breathing treatments. Patient's lungs still have minimal wheezing mostly expiratory. The patient now 92% on 4 L nasal cannula. We will admit the patient at this time for possible new O a pneumonia and COPD exacerbation. We start the patient on Levaquin. Patient's alert and oriented 3 in the room the mild hypoxia but otherwise stable vital signs. Patient agrees with this plan. I spoke with the hospitalist Dr. Ivory who accepts the patient at this time. Time: 11:39 Vital Signs Temperature 98.6 F 06/19/17 10:12 Pulse Rate 106 06/19/17 10:12 Respiratory Rate 24 06/19/17 10:12 Blood Pressure 113/91 06/19/17 10:12 O2 Sat by Pulse Oximetry 93 06/19/17 10:12 Temperature 98.6 F 06/19/17 10:12 Pulse Rate 80 06/19/17 13:41 Respiratory Rate 18 06/19/17 14:37 Blood Pressure 129/71 06/19/17 14:37 O2 Sat by Pulse Oximetry 91 06/19/17 13:41 Oxygen Delivery Oxygen Delivery Nasal Cannula Medical Decision Making - Medical Records Medical records reviewed: Yes I reviewed the patient's medical records. - Lab Data Lab results reviewed: Yes I reviewed the patient's lab results. Result diagrams: 06/19/17 10:35 06/19/17 10:35 Lab Results 06/19/17 06/19/17 06/19/17 Range/Units 10:35 10:35 10:35 WBC 12.1 H (4.3-11.1) K/mcL RBC 4.54 (3.82-4.97) M/mcL Hgb 11.6 (11.5-15.4) g/dL Hct 38.3 (35.3-44.9) % MCV 84.4 (83.0-100.0) fL MCH 25.6 L (28.0-33.3) pg MCHC 30.3 L (31.6-35.5) g/dL RDW 16.2 H (11.5-14.5) % Plt Count 246 (140-400) K/mcL MPV 9.2 L (9.4-12.4) fL Immature Gran % 0.5 (0-4) % Seg Neutrophils % 75.3 % Lymphocytes % 11.3 % Monocytes % 6.4 % Eosinophils % 6.1 % Basophils % 0.4 % Neutrophils # 9.1 H (1.6-8.9) K/mcL Lymphocytes # 1.4 (0.6-4.6) K/mcL Monocytes # 0.8 (0.0-1.3) K/mcL Eosinophils # 0.7 H (0.0-0.6) K/mcL Basophils # 0.1 (0.0-0.2) K/mcL PT (9.4-12.1) Seconds INR APTT (26.0-36.0) Seconds Sodium 140 (136-145) mEq/L Potassium 3.7 (3.5-4.5) mEq/L Chloride 103 (98-109) mEq/L Carbon Dioxide 30 H (19-29) mEq/L BUN 9 (7-20) mg/dL Creatinine 0.78 (0.57-1.11) mg/dL Est GFR ( Amer) > 60 (> 60) Est GFR (Non-Af Amer) > 60 (> 60) BUN/Creatinine Ratio 12 (6-26) Glucose 133 H (70-99) mg/dL Calculated Osmolality 291 (280-300) Lactic Acid 1.1 (0.5-2.2) mmol/L Calcium 9.1 (8.6-10.8) mg/dL Troponin I (0-0.03) ng/mL B-Natriuretic Peptide (0-100) pg/mL Urine Color (Yellow) Urine Clarity (Clear) Urine pH (5.0-8.0) pH Units Ur Specific [place] (1.010-1.025) Urine Protein (Neg-Trace) mg/dL Urine Glucose (UA) (Normal) mg/dL Urine Ketones (Negative) mg/dL Urine Blood (Negative) Urine Nitrite (Negative) Urine Bilirubin (Negative) Urine Urobilinogen (Normal) mg/dL Ur Leukocyte Esterase (Negative) Urine Microscopic RBC (0-3) per hpf Urine Microscopic WBC (0-3) per hpf Ur Squamous Epith Cells (None-Few) per lpf Urine Bacteria (None-Few) per hpf Hyaline Casts (None-Few) per lpf Urine Mucus (Few) Ur Culture Indicated? (NO) Digoxin 1.2 (0.8-2.0) ng/mL 06/19/17 06/19/17 06/19/17 Range/Units 10:35 10:35 10:35 WBC (4.3-11.1) K/mcL RBC (3.82-4.97) M/mcL Hgb (11.5-15.4) g/dL Hct (35.3-44.9) % MCV (83.0-100.0) fL MCH (28.0-33.3) pg MCHC (31.6-35.5) g/dL RDW (11.5-14.5) % Plt Count (140-400) K/mcL MPV (9.4-12.4) fL Immature Gran % (0-4) % Seg Neutrophils % % Lymphocytes % % Monocytes % % Eosinophils % % Basophils % % Neutrophils # (1.6-8.9) K/mcL Lymphocytes # (0.6-4.6) K/mcL Monocytes # (0.0-1.3) K/mcL Eosinophils # (0.0-0.6) K/mcL Basophils # (0.0-0.2) K/mcL PT 14.8 H (9.4-12.1) Seconds INR 1.4 APTT 35.5 (26.0-36.0) Seconds Sodium (136-145) mEq/L Potassium (3.5-4.5) mEq/L Chloride (98-109) mEq/L Carbon Dioxide (19-29) mEq/L BUN (7-20) mg/dL Creatinine (0.57-1.11) mg/dL Est GFR ( Amer) (> 60) Est GFR (Non-Af Amer) (> 60) BUN/Creatinine Ratio (6-26) Glucose (70-99) mg/dL Calculated Osmolality (280-300) Lactic Acid (0.5-2.2) mmol/L Calcium (8.6-10.8) mg/dL Troponin I 0.00 (0-0.03) ng/mL B-Natriuretic Peptide 246 H (0-100) pg/mL Urine Color (Yellow) Urine Clarity (Clear) Urine pH (5.0-8.0) pH Units Ur Specific [place] (1.010-1.025) Urine Protein (Neg-Trace) mg/dL Urine Glucose (UA) (Normal) mg/dL Urine Ketones (Negative) mg/dL Urine Blood (Negative) Urine Nitrite (Negative) Urine Bilirubin (Negative) Urine Urobilinogen (Normal) mg/dL Ur Leukocyte Esterase (Negative) Urine Microscopic RBC (0-3) per hpf Urine Microscopic WBC (0-3) per hpf Ur Squamous Epith Cells (None-Few) per lpf Urine Bacteria (None-Few) per hpf Hyaline Casts (None-Few) per lpf Urine Mucus (Few) Ur Culture Indicated? (NO) Digoxin (0.8-2.0) ng/mL 06/19/17 Range/Units 10:50 WBC (4.3-11.1) K/mcL RBC (3.82-4.97) M/mcL Hgb (11.5-15.4) g/dL Hct (35.3-44.9) % MCV (83.0-100.0) fL MCH (28.0-33.3) pg MCHC (31.6-35.5) g/dL RDW (11.5-14.5) % Plt Count (140-400) K/mcL MPV (9.4-12.4) fL Immature Gran % (0-4) % Seg Neutrophils % % Lymphocytes % % Monocytes % % Eosinophils % % Basophils % % Neutrophils # (1.6-8.9) K/mcL Lymphocytes # (0.6-4.6) K/mcL Monocytes # (0.0-1.3) K/mcL Eosinophils # (0.0-0.6) K/mcL Basophils # (0.0-0.2) K/mcL PT (9.4-12.1) Seconds INR APTT (26.0-36.0) Seconds Sodium (136-145) mEq/L Potassium (3.5-4.5) mEq/L Chloride (98-109) mEq/L Carbon Dioxide (19-29) mEq/L BUN (7-20) mg/dL Creatinine (0.57-1.11) mg/dL Est GFR ( Amer) (> 60) Est GFR (Non-Af Amer) (> 60) BUN/Creatinine Ratio (6-26) Glucose (70-99) mg/dL Calculated Osmolality (280-300) Lactic Acid (0.5-2.2) mmol/L Calcium (8.6-10.8) mg/dL Troponin I (0-0.03) ng/mL B-Natriuretic Peptide (0-100) pg/mL Urine Color Dark Yellow (Yellow) Urine Clarity Cloudy A (Clear) Urine pH 6.0 (5.0-8.0) pH Units Ur Specific [place] 1.027 H (1.010-1.025) Urine Protein 30 H (Neg-Trace) mg/dL Urine Glucose (UA) Normal (Normal) mg/dL Urine Ketones Negative (Negative) mg/dL Urine Blood Moderate H (Negative) Urine Nitrite Negative (Negative) Urine Bilirubin Small H (Negative) Urine Urobilinogen Normal (Normal) mg/dL Ur Leukocyte Esterase Negative (Negative) Urine Microscopic RBC 0-3 (0-3) per hpf Urine Microscopic WBC 3-5 H (0-3) per hpf Ur Squamous Epith Cells Many H (None-Few) per lpf Urine Bacteria Few (None-Few) per hpf Hyaline Casts Few (None-Few) per lpf Urine Mucus Few (Few) Ur Culture Indicated? NO (NO) Digoxin (0.8-2.0) ng/mL - Radiology Data Radiology results reviewed: Yes I reviewed the patient's radiology results. Chest X-Ray 06/19/17 10:12 IMPRESSION: Mild pulmonary vascular congestion without overt pulmonary edema. Mild bibasilar streaky opacities may relate to atelectasis or developing infiltrates. Clinical correlation and continued follow-up suggested. Stable cardiomegaly. D/ / 06/19/2017 10:56:18 Rehan Goldman MD / [email or web address] Interpreting Provider: Rehan Goldman MD Attestation Statement - Attestation Attestation: I examined this patient and my medical decision-making was reviewed with the Resident Physician, Dr. Souza. I agree with the documented findings, disposition and treatment plan as described except to the extent set forth below. Patient is a 66-year-old white female with a history of COPD, atrial fibrillation on Xarelto who presents to the emergency department by EMS this morning with gradually worsening shortness of breath over the past 2-3 days. Patient is audibly wheezing and in respiratory distress on arrival with reported hypoxia on room air by medics. Patient reports she is on supplement oxygen by nasal cannula at home at night only. Patient denies any recent ill contacts. Patient states over the past 2-3 days she has developed upper respiratory symptoms consistent with nasal congestion, postnasal drip, and occasional nonproductive cough and subjective fevers and chills. Patient denies any form of chest pain pressure or heaviness, no palpitations or heart racing, no lightheadedness or syncope. Patient was immediately placed on university librarian, continuous pulse ox, supplemental oxygen and respiratory was called to bedside to provide breathing treatments for the patient on arrival. Patient is denying any chest pain pressure or heaviness. No diaphoresis, no abdominal pain or flank pain, no other associated symptoms besides shortness of breath. I agree with patient's physical exam findings as documented. Patient is hypoxic on arrival was placed on supplemental oxygen and on 4 L nasal cannula sats improved to 90-91%. Breathing treatments were initiated and IV steroids were administered. EKG shows atrial fibrillation that is rate controlled without acute ischemic changes. Portal chest x-ray shows questionable bilateral lower lobe early infiltrate with mild coronary congestion. Patient had blood cultures obtained, lactate drawn, and antibiotics were initiated for bilateral pneumonia. Clinically patient is much improved following aerosols and steroids. Patient will be admitted to the hospitalist service for further evaluation and management, discussed case with them and accepted patient for admission.
[2017-06-19 10:45] LABS: Basophils # 0.1 K/mcL (0.0-0.2); Basophils % 0.4 %; Eosinophils # 0.7 K/mcL (0.0-0.6); Eosinophils % 6.1 %; Hematocrit 38.3 % (35.3-44.9); Hemoglobin 11.6 g/dL (11.5-15.4); Immature Granulocytes % 0.5 % (0-4); Lymphocytes # 1.4 K/mcL (0.6-4.6); Lymphocytes % 11.3 %; Mean Corpuscular HGB Conc 30.3 g/dL (31.6-35.5); Mean Corpuscular Hemoglobin 25.6 pg (28.0-33.3); Mean Corpuscular Volume 84.4 fL (83.0-100.0); Mean Platelet Volume 9.2 fL (9.4-12.4); Monocytes # 0.8 K/mcL (0.0-1.3); Monocytes % 6.4 %; Neutrophils # 9.1 K/mcL (1.6-8.9); Platelet Count 246 K/mcL (140-400); Red Blood Count 4.54 M/mcL (3.82-4.97); Red Cell Distribution Width 16.2 % (11.5-14.5); Segmented Neutrophils % 75.3 %
[2017-06-19 10:51] LABS: INR 1.4; Prothrombin Time 14.8 Seconds (9.4-12.1)
[2017-06-19 10:54] LABS: Activated Partial Thrombo Time 35.5 Seconds (26.0-36.0)
[2017-06-19 10:59] LABS: BUN/Creatinine Ratio 12 (6-26); Blood Urea Nitrogen 9 mg/dL (7-20); Calcium 9.1 mg/dL (8.6-10.8); Carbon Dioxide 30 mEq/L (19-29); Chloride 103 mEq/L (98-109); Glucose 133 mg/dL (70-99); Osmolality,Calculated 291 (280-300); Potassium 3.7 mEq/L (3.5-4.5); Sodium 140 mEq/L (136-145); eGFR For African Americans > 60 (> 60); eGFR For Non-African Americans > 60 (> 60)
[2017-06-19] MEDS ORDERED: Levofloxacin 750 MG/150 ML 750 MG/150 ML BAG IVPB ONE (11:00)
[2017-06-19 11:09] LABS: Digoxin 1.2 ng/mL (0.8-2.0)
[2017-06-19 11:17] LABS: Bilirubin,Urine Small (Negative); Blood,Urine Moderate (Negative); Clarity,Urine Cloudy (Clear); Color,Urine Dark Yellow (Yellow); Glucose,Urine (UA) Normal (Normal); Ketones,Urine Negative (Negative); Leukocyte Esterase,Urine Negative (Negative); Nitrite,Urine Negative (Negative); Protein,Urine 30 mg/dL (Neg-Trace); Specific Gravity,Urine 1.027 (1.010-1.025); Urobilinogen,Urine Normal (Normal)
[2017-06-19 11:19] LABS: RBC,Urine 0-3 per hpf (0-3); Squamous Epithelial Cell,Urine Many per lpf (None-Few)
[2017-06-19 11:33] LABS: Bacteria,Urine Few per hpf (None-Few); Hyaline Casts,Urine Few per lpf (None-Few); Mucus,Urine Few (Few)
[2017-06-19] MEDS ORDERED: Ondansetron 4 MG/2 ML VIAL IVP PRN (14:37)
[2017-06-19] MEDS ORDERED: *HR* Morphine 2 MG/ML SYRINGE IVP PRN (14:37)
[2017-06-19] MEDS ORDERED: Acetaminophen 325 MG TABLET PO PRN (14:37)
[2017-06-19] MEDS ORDERED: Naloxone 0.4 MG/ML INJ IVP PRN (14:37)
[2017-06-19] MEDS ORDERED: *HR* HYDROcodone/Acet 5/325 mg TABLET PO PRN (14:37)
[2017-06-19] MEDS ORDERED: Benzonatate 100 MG CAPSULE PO PRN (15:10)
--- NOTE | 2017-06-19 15:11 | Internal Med History&Physical ---
<AmnapettycarleenFransisco barrera - Last Filed: 06/19/17 15:52> Date of Encounter: 06/19/17 Time of Encounter: 13:00 Assessment and Plan (1) Pneumonia Status: Acute Acute pneumonia that is most likely HCAP to patient's recent hospital admission in April. DuoNebs Q4 scheduled. Blood cultures x2. Sputum culture. Tessalon 200 mg TID for cough. 40 mg Solu-Medrol every 8 for COPD exacerbation. IVPB vancomycin with pharmacy dosing and Zosyn 3.375 gm every 8 infection coverage. Will adjust abx based on culture results. Patient does not currently meet sepsis criteria but will be monitored closely for signs of increasing infection , cardiac, and/or respiratory distress. Monitor f/u labs. Patient high risk for sepsis and/or increased infection based on current symptoms, risk factors, and hx. Inpatient. Qualifiers: Pneumonia type: due to unspecified organism Laterality: unspecified laterality Lung location: lower lobe of lung Qualified Code(s): J18.1 - Lobar pneumonia, unspecified organism (2) Acute exacerbation of CHF (congestive heart failure) Status: Acute Acute exacerbation of CHF. Patient states she becomes orthopneic when laying down. Patient states she takes Lasix daily for bilateral pedal edema. Patient currently has wheezes and crackles present bilaterally in all lobes with auscultation. Patient also has history of chronic atrial fibrillation and morbid obesity. 40 mg IVP Lasix 4 times a day. Will discontinue after fourth dose and converted to by mouth Lasix based on patient's fluid overload status. Supplemental O2 with titration SPO2 monitoring. Continuous cardiac telemetry. 1.5 L daily fluid restriction. Monitor I&O and daily weight. EKG today shows atrial fibrillation with nonspecific ST and T-wave abnormality. Will monitor patient's fluid status and adjust lasix dosing. Current renal function >60. Qualifiers: Congestive heart failure type: unspecified congestive heart failure type Qualified Code(s): I50.9 - Heart failure, unspecified (3) Acute exacerbation of chronic obstructive airways disease Status: Acute Patient presents with acute exacerbation of chronic obstructive pulmonary disease. Patient reports history of chronic tobacco abuse and currently smokes less than one pack per day. Chronic cough with sputum production. Patient also reports use of steroids in past due to COPD. Supplemental O2 with titration and SPO2 monitoring. DuoNeb every 4 scheduled. Solu-Medrol 40 mg IVPB every 8. (4) Tobacco abuse counseling Status: Acute Hx of chronic tobacco abuse. Pt. reports smoking <1 PPD. Pt. counseled >10 minutes regarding dangers of continued tobacco abuse on her cardiac sx and risk factors, as well as familial hx of cancer. Methods for quitting discussed w/pt. who confirmed understanding. Requests nicotine patch. (5) Bilateral lower leg cellulitis Status: Chronic Hx of chronic cellulitis of bilateral LEs. Pt. presents with erythema, edema, and sores of the LEs d/t current and chronic cellulitis. Pt. reports hx of MRSA. EVELYN hose and Luis bandage wrapping ordered for bilateral LEs to address edema. IVPB vancomycin pharmacy dosing and Zosyn 3.375 gm every 8 hours for infection coverage for pneumonia as well as cellulitis. Will monitor f/u labs for infection status. (6) Sleep apnea Status: Chronic Hx of chronic sleep apnea. Patient reports home oxygen use but denies use of CPAP or BiPAP. Supplemental O2 with titration and SPO2 monitoring. Qualifiers: Sleep apnea type: unspecified type Qualified Code(s): G47.30 - Sleep apnea , unspecified (7) Chronic atrial fibrillation Status: Chronic Hx of chronic atrial fibrillation. Continuous cardiac telemetry. Continue aspirin therapy, Eliquis, and Digoxin. Digoxin level WNL on labs. (8) GERD (gastroesophageal reflux disease) Status: Chronic Hx of chronic GERD. IVP Zofran Q6 PRN. IVP Protonix 40 mg BID. Qualifiers: Esophagitis presence: esophagitis presence not specified Qualified Code(s) : K21.9 - Gastro-esophageal reflux disease without esophagitis (9) HTN (hypertension) Status: Chronic Hx of chronic HTN. Monitor patient and vital signs. Continue diltiazem and digoxin. Qualifiers: Hypertension type: essential hypertension Qualified Code(s): I10 - Essential (primary) hypertension (10) HLD (hyperlipidemia) Status: Chronic Hx of chronic HLD. Patient states she currently does not take HLD medication. Lipid panel in a.m. labs. Lipitor 20 mg HS ordered. Qualifiers: Hyperlipidemia type: pure hypercholesterolemia Qualified Code(s): E78.00 - Pure hypercholesterolemia, unspecified; E78.0 - Pure hypercholesterolemia (11) DVT prophylaxis Status: Acute Continue patient's Eliquis for DVT prophylaxis. Internal Medicine - H&P: HPI Chief complaint: SOB/Dyspnea Admitted From: Emergency Dept Plans for Post Hospital Care: Home History of present illness: Ms. Lewis is a 66 year old female with medical history of chronic atrial fibrillation, COPD, GERD, each [place], HLD, CHF, sleep apnea [place]ent[place] in the ED with chief complaint severe shortness of breath and dyspnea for the past 3 days. Patient has productive cough and states she uses home oxygen but does not use CPAP or BiPAP for her sleep apnea. Patient also states she uses nebulizers at home as well as inhalers. Patient reports bilateral LE edema and pain d/t unresolved cellulitis. Pt. was hospitalized in April for COPD exacerbation. Patient denies recent illness, chills, nausea, vomiting, chest pain, palpitations, abdominal pain, numbness, tingling, changes in vision, unusual bleeding, lightheadedness, dizziness, pre-syncope, or syncope. Past Med Surg Social Fam HX - Past Medical History Source: patient, old records reviewed Medical history: atrial fibrillation, CHF, COPD, GERD, hyperlipidemia, hypertension, other (Sleep apnea) Psychiatric history: depression - Past Surgical History Surgical History: knee replacement (Bilateral), other (D&C, tonsillectomy) - Social History Smoking Status: Current every day smoker Packs per day: <1 PPD Smokeless Tobacco Status: No Alcohol use: none Drug use: none Current living situation: Home Activity Level: Independent ambulation, Uses cane/walker Recent Out of Country Travel Within the Last 8 Weeks: No Exposure or Possible Exposure to Illness During Travel: No - Family History Mother Adopted: No Race: Family Member Ethnicity: Non- Living Status: Age at : 78 Cause of : Stroke Hx Family Cardiac Disorders: Yes (TIAs, CVA, HTN) Hx Family Respiratory Disorders: Yes Hx Family Cancer: Yes Hx Family Endocrine Disorder: Yes Father Race: Family Member Ethnicity: Non- Living Status: Age at : 79 Cause of : Stomach cancer Hx Family Cardiac Disorders: Yes Hx Family Respiratory Disorders: Yes Hx Family Cancer: Yes (Stomach) Hx Family Endocrine Disorder: Yes Brother Race: Family Member Ethnicity: Non- Living Status: Age at : 67 Cause of : Stomach cancer Hx Family Cancer: Yes (Stomach) Hx Family Endocrine Disorder: Yes (DM) Sister Race: Family Member Ethnicity: Non- Living Status: Still Living Hx Family Cardiac Disorders: Yes (HTN) Hx Family Respiratory Disorders: Yes (COPD) Internal Medicine - H&P: Meds Albuterol Sulfate [Ventolin Hfa] 2 puff IH Q6H PRN 03/13/16 [History] Apixaban [Eliquis] 5 mg PO Q12H 03/13/16 [History] Aspirin Enteric Coated [Aspirin EC] 81 mg PO DAILY 03/13/16 [History] BuPROPion [Wellbutrin] 100 mg PO BID 03/13/16 [History] Calcium Carbonate/Vitamin D3 [Oyster Shell Calcium-Vit D Tab] 500 mg PO BID [History] Citalopram [CeleXA] 60 mg PO DAILY 03/13/16 [History] Digoxin [Lanoxin] 0.25 mg PO DAILY 03/13/16 [History] Ferrous Sulfate 325 mg PO BIDWM 03/13/16 [History] Ipratropium/Albuterol Neb [Duoneb] 3 ml IH Q6HR PRN 03/13/16 [History] Umeclidinium Ona [Incruse Ellipta] 62.5 mcg IH DAILY 08/01/16 [History] Mv,Ca,Min/Iron Fum/FA/Lyco/Lut [Sentry Multivit & Mineral Cplt] 1 tab PO DAILY 10/12/16 [History] Omeprazole [PriLOSEC] 40 mg PO DAILY 10/12/16 [History] Oxygen 2 l NS AD PRN 10/12/16 [History] Diltiazem HCl [Diltiazem ER] 240 mg PO DAILY 05/03/17 [History] Furosemide [Lasix] 80 mg PO BID 05/03/17 [History] Budesonide/Formoterol 160/4.5 [Symbicort 160/4.5] 2 puff IH BIDR 06/19/17 [ History] Cefdinir [Omnicef] 300 mg PO BID #14 capsule 06/21/17 [Rx] Doxycycline Hyclate 100 mg PO BID #14 tablet 06/21/17 [Rx] predniSONE [PredniSONE] 10 mg PO DAILY 12 Days tablet 06/21/17 [Rx] 3 Allergy/AdvReac Type Severity Reaction Status Date / Time lisinopril AdvReac Cough Verified 06/19/17 10:12 All Systems PM: A 10-system review of systems was performed and is negative for pertinent findings except as documented above in the HPI. - Constitutional Constitutional: no chills, no fever(s), no night sweats - EENT Eyes: no change in vision, no discharge, no pain, no photophobia Ears: no ear discharge, no ear pain, no tinnitus Nose, mouth and throat: no dysphagia, no nasal discharge, no neck pain, no sore throat - Breasts Breasts: as per HPI - Cardiovascular Cardiovascular ROS IM: as per HPI, dyspnea, dyspnea on exertion, edema, irregular heart rhythm, no chest pain, no diaphoresis, no lightheadedness, no palpitations, no syncope - Respiratory Respiratory: as per HPI, cough, dyspnea, dyspnea on exertion, wheezing, excessive phlegm production - Gastrointestinal Gastrointestinal: no abdominal pain, no diarrhea, no hematemesis, no hematochezia, no melena, no nausea, no vomiting - Genitourinary Genitourinary: no change in urinary stream, no dysuria, no flank pain, no hematuria Menstruation: as per HPI - Musculoskeletal Musculoskeletal ROS IM: no numbness, no tingling - Integumentary Integumentary IM: as per HPI, erythema (Bilateral LEs r/t cellulitis), sores ( Bilateral LEs from cellulitis), no rash, no unusual bruising - Neurological Neurological ROS: no confusion, no convulsions, no focal weakness, no numbness, no tingling, no tremor(s) - Psychiatric Psychiatric: as per HPI - Endocrine Endocrine IM: as per HPI - Hematologic/Lymphatic Hematologic/Lymphatic: no easy bruising - Allergic/Immunologic Allergic/Immunologic: as per HPI - Constitutional Vitals: Temp Pulse Resp BP Pulse Ox 98.6 F 80 18 129/71 91 06/19/17 10:12 06/19/17 13:41 06/19/17 14:37 06/19/17 14:37 06/19/17 13:41 General appearance: Present: cooperative, mild distress, A&O X 3, morbidly obese , pleasant, answers questions appropriately - Head Head exam: Present: atraumatic, normal inspection, normocephalic - Eye Eye exam: Present: PERRL, conjuntiva pink, sclera anicteric Pupils: Present: PERRL - ENT ENT exam: Present: normal exam - Neck Neck exam general surgery: Present: normal inspection, supple, trachea midline. Absent: lymphadenopathy - Respiratory Respiratory exam: Present: CTAB. Absent: accessory muscle use, rales, rhonchi, wheezes - Cardiovascular Cardiovascular exam: Present: irregular rhythm - GI/Abdominal GI/Abdominal exam: Present: normal bowel sounds, soft, no peritoneal signs. Absent: distended, tenderness - Rectal Rectal exam: Present: deferred - Additional comments: exam deferred. - Extremities Exam Extremities exam: Present: pedal edema, warm, radial pulses palpable and symmetrical - Back Exam Back exam: Present: normal inspection - Neurological Exam Neurological exam: Present: CN II-XII intact, oriented X3, no focal deficits. Absent: pronater drift, facial droop, speech deficit - Psychiatric Psychiatric exam: Present: normal affect, normal mood - Skin Skin exam: Present: erythema (Bilateral LEs d/t cellulitis) Internal Med - H&P Results - Labs CBC & Chem 7: 06/19/17 10:35 06/19/17 10:35 - EKG Data Prior EKG available for review: yes When compared to previous EKG: there is no significant change EKG comments: 06/19/17 15:21 EKG dated 05/03/17 shows atrial fibrillation with ST deviation and moderate T- wave abnormality, consider anterolateral ischemia. Abnormal ECG. EKG dated 06/19/17 shows atrial fibrillation with nonspecific ST and T-wave abnormality. Abnormal ECG. <Linda Ivory - Last Filed: 06/21/17 19:31> Date of Encounter: 06/21/17 Internal Medicine - H&P: HPI History of present illness: Ms. Lewis is a 66 year old female All Systems PM: A 10-system review of systems was performed and is negative for pertinent findings except as documented above in the HPI. - Constitutional Vitals: Temp Pulse Resp BP Pulse Ox 97.9 F 94 18 131/86 95 06/21/17 07:17 06/21/17 07:17 06/21/17 11:22 06/21/17 07:17 06/21/17 11:22 Internal Med - H&P Results - Labs CBC & Chem 7: 06/21/17 06:17 06/21/17 06:17 Labs: Short CBC 06/21/17 Range/Units 06:17 WBC 13.3 H (4.3-11.1) K/mcL Hgb 11.5 (11.5-15.4) g/dL Hct 39.0 (35.3-44.9) % Plt Count 312 (140-400) K/mcL Neutrophils # 11.5 H (1.6-8.9) K/mcL BMP 06/21/17 06:17 Sodium 139 Potassium 4.1 Chloride 98 Carbon Dioxide 30 H BUN 26 H D Creatinine 1.19 H Glucose 259 H Calcium 9.4 Liver Function 06/21/17 Range/Units 06:17 Total Bilirubin 0.3 (0.2-1.2) mg/dL AST 14 (5-34) Units/L ALT 16 (0-55) Units/L Alkaline Phosphatase 92 (38-126) Units/L Albumin 3.2 L (3.5-5.0) g/dL - Impressions ITS Impressions Chest X-Ray 06/21/17 09:47 IMPRESSION: Decreased vascular congestion. Mild bibasilar opacity, likely atelectasis. Cardiomegaly. D/ / Demetrius Mittal MD / Demetrius Mittal MD Interpreting Provider: Demetrius Mittal MD - Attending Attestation I have personally performed a face to face evaluation on this patient. I have reviewed and agree with the care plan. History and Exam by me shows: Patient seen and examined, case discussed with AIRPLANE FLIGHT ATTENDANT SUPERVISOR. I agree with exam as above. Plan modified according to our discussion
[2017-06-19] MEDS: Ipratropium/Albuterol Neb 3 ML IH SCH ×2 (16:23→19:52)
[2017-06-19] MEDS: Piperacillin/Tazobactam 3.375 GM in D5% in Water (Mini-Bag+) 100 ML IVPB SCH (16:57)
[2017-06-19] MEDS: APIXABAN 5 MG TABLET PO SCH (16:58)
[2017-06-19] MEDS: Nicotine 21 MG PATCH.TD24 TD SCH (16:58)
[2017-06-19] MEDS: Furosemide 40 MG/4 ML VIAL IVP SCH ×2 (16:58→21:28)
[2017-06-19] MEDS ORDERED: Vancomycin 1,750 MG in D5% in Water 500 ML IVPB ONE (17:00)
[2017-06-19] MEDS: Budesonide/Formoterol 160/4.5 MDI IH SCH (19:56)
[2017-06-19] MEDS: MethylPREDNISolone 40 MG/ML VIAL IVP SCH (21:28)
[2017-06-19] MEDS: Pantoprazole 40 MG VIAL IVP SCH (21:28)
[2017-06-20] MEDS: Piperacillin/Tazobactam 3.375 GM in D5% in Water (Mini-Bag+) 100 ML IVPB SCH ×3 (00:05→17:39)
[2017-06-20] MEDS: Ipratropium/Albuterol Neb 3 ML IH SCH ×7 (00:25→23:50)
[2017-06-20] MEDS: Vancomycin 1,250 MG in D5% in Water 250 ML IVPB SCH ×2 (04:16→17:40)
[2017-06-20] MEDS: APIXABAN 5 MG TABLET PO SCH ×2 (04:17→20:38)
[2017-06-20] MEDS: MethylPREDNISolone 40 MG/ML VIAL IVP SCH ×3 (04:17→20:38)
[2017-06-20 06:28] LABS: Basophils % 0.1 %; Hematocrit 40.2 % (35.3-44.9); Hemoglobin 11.9 g/dL (11.5-15.4); Immature Granulocytes % 0.9 % (0-4); Lymphocytes % 8.8 %; Mean Corpuscular HGB Conc 29.6 g/dL (31.6-35.5); Mean Corpuscular Hemoglobin 24.8 pg (28.0-33.3); Mean Corpuscular Volume 83.9 fL (83.0-100.0); Mean Platelet Volume 10.1 fL (9.4-12.4); Monocytes # 0.3 K/mcL (0.0-1.3); Monocytes % 2.8 %; Neutrophils # 9.5 K/mcL (1.6-8.9); Platelet Count 300 K/mcL (140-400); Red Blood Count 4.79 M/mcL (3.82-4.97); Red Cell Distribution Width 16.1 % (11.5-14.5); Segmented Neutrophils % 87.4 %
[2017-06-20 06:30] LABS: INR 1.3; Prothrombin Time 14.4 Seconds (9.4-12.1)
[2017-06-20 06:33] LABS: Activated Partial Thrombo Time 32.9 Seconds (26.0-36.0)
[2017-06-20 06:46] LABS: Alanine Aminotransferase 15 Units/L (0-55); Albumin 3.7 g/dL (3.5-5.0); Albumin/Globulin Ratio 0.9 (1.1-2.2); Alkaline Phosphatase 108 Units/L (38-126); Aspartate Amino Transferase 17 Units/L (5-34); BUN/Creatinine Ratio 16 (6-26); Bilirubin,Total 0.4 mg/dL (0.2-1.2); Blood Urea Nitrogen 16 mg/dL (7-20); Calcium 9.8 mg/dL (8.6-10.8); Carbon Dioxide 29 mEq/L (19-29); Chloride 99 mEq/L (98-109); Chol/HDL Ratio 2.6 (0-4.9); Cholesterol 142 mg/dL (< 200); Globulin 4.2 g/dL (2.4-3.5); Glucose 163 mg/dL (70-99); HDL Cholesterol 54 mg/dL (40-59); LDL Cholesterol,Calculated 79 mg/dL (0-99); Osmolality,Calculated 297 (280-300); Potassium 3.6 mEq/L (3.5-4.5); Sodium 141 mEq/L (136-145); Total Protein 7.9 g/dL (6.0-8.3); Triglycerides 46 mg/dL (< 150); eGFR For African Americans > 60 (> 60); eGFR For Non-African Americans 54 (> 60)
[2017-06-20 06:47] LABS: Hemoglobin A1C 5.7 %
[2017-06-20] MEDS: Budesonide/Formoterol 160/4.5 MDI IH SCH ×2 (07:52→20:54)
[2017-06-20] MEDS ORDERED: (Umeclidinium Bromide [Incruse Ellipta] 62.5 MCG) IH SCH (09:00)
[2017-06-20] MEDS: *HR* Digoxin 0.25 MG TABLET PO SCH (09:24)
[2017-06-20] MEDS: Diltiazem CD (24hr) 240 MG CAPSULE PO SCH (09:24)
[2017-06-20] MEDS: Aspirin Enteric Coated 81 MG Tablet PO SCH (09:25)
[2017-06-20] MEDS: Furosemide 40 MG/4 ML VIAL IVP SCH ×2 (09:25→14:06)
[2017-06-20] MEDS: Pantoprazole 40 MG VIAL IVP SCH (09:25)
[2017-06-20] MEDS: Nicotine 21 MG PATCH.TD24 TD SCH (14:06)
--- NOTE | 2017-06-20 14:24 | Internal Med Progress Note ---
Date of Encounter: 06/20/17 Time of Encounter: 09:50 - Assessment and plan (1) Pneumonia Current Visit: Yes Status: Acute Assessment and plan: Continue current IV antibiotics. Suspected MRSA pneumonia. Will repeat chest x -ray tomorrow. Follow blood and sputum culture results. High risk for complications due to pneumonia with underlying comorbidities including COPD and CHF. Qualifiers: Pneumonia type: due to unspecified organism Laterality: unspecified laterality Lung location: lower lobe of lung Qualified Code(s): J18.1 - Lobar pneumonia, unspecified organism (2) Acute and chronic respiratory failure Current Visit: Yes Status: Acute Assessment and plan: Patient with acute on chronic respiratory failure. Continue current management by treating pneumonia, COPD and CHF. Wean FiO2 as tolerated. Qualifiers: Respiratory failure complication: hypoxia Qualified Code(s): J96.21 - Acute and chronic respiratory failure with hypoxia (3) Acute exacerbation of CHF (congestive heart failure) Current Visit: Yes Status: Acute Assessment and plan: Patient responding to intravenous Lasix. Doing better today. Continue fluid restriction. Renal function remains stable. The patient underwent transesophageal echocardiogram last year which showed an EF of 55% with mildly dilated right ventricle. A transthoracic echocardiogram at that time was technically difficult and often poor quality. We will hold off on repeat echocardiogram at this time as patient is clinically getting better. Continue aspirin and statin. Patient is allergic to DALE inhibitor. Qualifiers: Congestive heart failure type: diastolic Qualified Code(s): I50.33 - Acute on chronic diastolic (congestive) heart failure (4) Acute exacerbation of chronic obstructive airways disease Current Visit: Yes Status: Acute Assessment and plan: Patient continues to have wheezing and decreased air entry bilaterally. Continue bronchodilators and IV steroids. (5) Bilateral lower leg cellulitis Current Visit: Yes Status: Resolved Assessment and plan: Chronic stasis dermatitis. No signs of acute cellulitis at this time. (6) Chronic atrial fibrillation Current Visit: Yes Status: Chronic Assessment and plan: Rate controlled. Continue diltiazem. On anticoagulation with Eliquis (7) HLD (hyperlipidemia) Current Visit: Yes Status: Chronic Assessment and plan: Continue statin. Qualifiers: Hyperlipidemia type: pure hypercholesterolemia Qualified Code(s): E78.00 - Pure hypercholesterolemia, unspecified; E78.0 - Pure hypercholesterolemia (8) HTN (hypertension) Current Visit: Yes Status: Chronic Assessment and plan: Blood pressure is well controlled at this time. We will continue to monitor Qualifiers: Hypertension type: essential hypertension Qualified Code(s): I10 - Essential (primary) hypertension (9) Sleep apnea Current Visit: Yes Status: Chronic Qualifiers: Sleep apnea type: unspecified type Qualified Code(s): G47.30 - Sleep apnea , unspecified (10) DVT prophylaxis Current Visit: Yes Status: Acute - Subjective Interval history: Patient is awake and alert. Feels much better today. Denies any chest pain at this time. Shortness of breath is improving. No fever reported overnight. On 3 L O2 supplementation at this time. At home patient is on home oxygen only at bedtime. - Constitutional Vitals: Temp Pulse Resp BP Pulse Ox 98.1 F 75 18 116/75 94 06/20/17 14:12 06/20/17 14:12 06/20/17 14:12 06/20/17 14:12 06/20/17 14:12 General appearance: Present: cooperative, mild distress, A&O X 3, morbidly obese , pleasant, answers questions appropriately - Neck Neck exam general surgery: Present: supple, trachea midline. Absent: lymphadenopathy - Respiratory Respiratory exam: Present: decreased breath sounds (Bilaterally), prolonged expiratory phase, wheezes (Bilateral expiratory wheezing). Absent: accessory muscle use, rales, rhonchi - Cardiovascular Cardiovascular exam: Present: RRR, +S1, +S2. Absent: diastolic murmur, gallop, rubs, systolic murmur - Extremities Exam Extremities exam: Present: warm, radial pulses palpable and symmetrical. Absent : calf tenderness, cyanotic, pedal edema - Neurological Exam Neurological exam: Present: alert, oriented X3, no focal deficits. Absent: facial droop, speech deficit Internal Medicine: Result - Labs CBC & Chem 7: 06/20/17 04:24 06/20/17 04:24 Labs: Short CBC 06/20/17 Range/Units 04:24 WBC 10.9 (4.3-11.1) K/mcL Hgb 11.9 (11.5-15.4) g/dL Hct 40.2 (35.3-44.9) % Plt Count 300 (140-400) K/mcL Neutrophils # 9.5 H (1.6-8.9) K/mcL BMP 06/20/17 04:24 Sodium 141 Potassium 3.6 Chloride 99 Carbon Dioxide 29 BUN 16 Creatinine 1.03 Glucose 163 H Calcium 9.8 Liver Function 06/20/17 Range/Units 04:24 Total Bilirubin 0.4 (0.2-1.2) mg/dL AST 17 (5-34) Units/L ALT 15 (0-55) Units/L Alkaline Phosphatase 108 (38-126) Units/L Albumin 3.7 (3.5-5.0) g/dL - ABG Interpretation ABG results: PT/INR, D-dimer PT 14.4 Seconds (9.4-12.1) H 06/20/17 04:24 D-Dimer 717 ng/mLFEU (0-500) H 06/19/17 20:46 Consult Discharge Plan - Plan Referrals: Edouard Cole MD [Primary Care Provider] -
[2017-06-20] MEDS ORDERED: *HR* Dextrose 50 % in Water (Syg) 50 ML SYRINGE IVP PRN (14:34)
[2017-06-20] MEDS ORDERED: D5% in Water 1,000 ML IVC PRN (14:34)
[2017-06-20] MEDS ORDERED: Dextrose Gel 15 GM PO PRN ×2 (14:34)
[2017-06-20] MEDS: Insulin LISPRO 300 UNITS/3 ML VIAL SQ SCH (17:38)
[2017-06-21] MEDS: Piperacillin/Tazobactam 3.375 GM in D5% in Water (Mini-Bag+) 100 ML IVPB SCH ×2 (00:13→09:11)
[2017-06-21] MEDS: Vancomycin 1,250 MG in D5% in Water 250 ML IVPB SCH (04:24)
[2017-06-21] MEDS: MethylPREDNISolone 40 MG/ML VIAL IVP SCH ×2 (04:24→11:56)
[2017-06-21] MEDS: Ipratropium/Albuterol Neb 3 ML IH SCH ×4 (04:47→15:27)
[2017-06-21 07:18] VITALS: BP 131/86
[2017-06-21 07:29] LABS: Basophils % 0.2 %; Hemoglobin 11.5 g/dL (11.5-15.4); Lymphocytes % 7.1 %; Mean Corpuscular HGB Conc 29.5 g/dL (31.6-35.5); Mean Corpuscular Hemoglobin 24.8 pg (28.0-33.3); Mean Corpuscular Volume 84.1 fL (83.0-100.0); Mean Platelet Volume 10.2 fL (9.4-12.4); Monocytes # 0.7 K/mcL (0.0-1.3); Monocytes % 5.1 %; Neutrophils # 11.5 K/mcL (1.6-8.9); Platelet Count 312 K/mcL (140-400); Red Blood Count 4.64 M/mcL (3.82-4.97); Segmented Neutrophils % 86.6 %
[2017-06-21] MEDS ORDERED: Furosemide 40 MG TABLET PO SCH (08:00)
[2017-06-21 08:15] LABS: Albumin 3.2 g/dL (3.5-5.0); Albumin/Globulin Ratio 0.8 (1.1-2.2); Bilirubin,Total 0.3 mg/dL (0.2-1.2); Calcium 9.4 mg/dL (8.6-10.8); Globulin 4.1 g/dL (2.4-3.5); Potassium 4.1 mEq/L (3.5-4.5); Total Protein 7.3 g/dL (6.0-8.3)
--- NOTE | 2017-06-21 08:21 | Electrocardiograph Report ---
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
--- NOTE | 2017-06-21 08:21 | Electrocardiograph Report ---
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
[2017-06-21] MEDS: Diltiazem CD (24hr) 240 MG CAPSULE PO SCH (09:08)
[2017-06-21] MEDS: *HR* Digoxin 0.25 MG TABLET PO SCH (09:08)
[2017-06-21] MEDS: APIXABAN 5 MG TABLET PO SCH (09:08)
[2017-06-21] MEDS: Aspirin Enteric Coated 81 MG Tablet PO SCH (09:08)
[2017-06-21] MEDS: Insulin LISPRO 300 UNITS/3 ML VIAL SQ SCH ×2 (09:14→11:55)
--- NOTE | 2017-06-21 09:52 | Discharge Summary ---
Date of Encounter: 06/21/17 Time of Encounter: 09:50 - Discharge Diagnosis (1) Pneumonia Priority: Primary Status: Acute Qualifiers: Pneumonia type: due to unspecified organism Laterality: unspecified laterality Lung location: lower lobe of lung Qualified Code(s): J18.1 - Lobar pneumonia, unspecified organism (2) Acute and chronic respiratory failure Priority: Secondary Status: Acute Qualifiers: Respiratory failure complication: hypoxia Qualified Code(s): J96.21 - Acute and chronic respiratory failure with hypoxia (3) Acute exacerbation of CHF (congestive heart failure) Priority: Secondary Status: Acute Qualifiers: Congestive heart failure type: diastolic Qualified Code(s): I50.33 - Acute on chronic diastolic (congestive) heart failure (4) Acute exacerbation of chronic obstructive airways disease Priority: Secondary Status: Acute (5) Bilateral lower leg cellulitis Priority: Secondary Status: Ruled-out (6) Chronic atrial fibrillation Priority: Secondary Status: Chronic (7) HLD (hyperlipidemia) Priority: Secondary Status: Chronic Qualifiers: Hyperlipidemia type: pure hypercholesterolemia Qualified Code(s): E78.00 - Pure hypercholesterolemia, unspecified; E78.0 - Pure hypercholesterolemia (8) HTN (hypertension) Priority: Secondary Status: Chronic Qualifiers: Hypertension type: essential hypertension Qualified Code(s): I10 - Essential (primary) hypertension (9) Sleep apnea Priority: Secondary Status: Chronic Qualifiers: Sleep apnea type: unspecified type Qualified Code(s): G47.30 - Sleep apnea , unspecified (10) DVT prophylaxis Priority: Secondary Status: Acute (11) Renal insufficiency, mild Priority: Secondary Status: Acute - Discharge Medications Prescriptions: Cefdinir [Omnicef] 300 mg PO BID #14 capsule Doxycycline Hyclate 100 mg PO BID #14 tablet predniSONE [PredniSONE] 10 mg PO DAILY 12 Days tablet Home Medications: Albuterol Sulfate [Ventolin Hfa] 2 puff IH Q6H PRN 03/13/16 [History] Apixaban [Eliquis] 5 mg PO Q12H 03/13/16 [History] Aspirin Enteric Coated [Aspirin EC] 81 mg PO DAILY 03/13/16 [History] BuPROPion [Wellbutrin] 100 mg PO BID 03/13/16 [History] Calcium Carbonate/Vitamin D3 [Oyster Shell Calcium-Vit D Tab] 500 mg PO BID [History] Citalopram [CeleXA] 60 mg PO DAILY 03/13/16 [History] Digoxin [Lanoxin] 0.25 mg PO DAILY 03/13/16 [History] Ferrous Sulfate 325 mg PO BIDWM 03/13/16 [History] Ipratropium/Albuterol Neb [Duoneb] 3 ml IH Q6HR PRN 03/13/16 [History] Umeclidinium [place] [Incruse Ellipta] 62.5 mcg IH DAILY 08/01/16 [History] Mv,Ca,Min/Iron Fum/FA/Lyco/Lut [Sentry Multivit & Mineral Cplt] 1 tab PO DAILY 10/12/16 [History] Omeprazole [PriLOSEC] 40 mg PO DAILY 10/12/16 [History] Oxygen 2 l NS AD PRN 10/12/16 [History] Diltiazem HCl [Diltiazem ER] 240 mg PO DAILY 05/03/17 [History] Furosemide [Lasix] 80 mg PO BID 05/03/17 [History] Budesonide/Formoterol 160/4.5 [Symbicort 160/4.5] 2 puff IH BIDR 06/19/17 [ History] Cefdinir [Omnicef] 300 mg PO BID #14 capsule 06/21/17 [Rx] Doxycycline Hyclate 100 mg PO BID #14 tablet 06/21/17 [Rx] predniSONE [PredniSONE] 10 mg PO DAILY 12 Days tablet 06/21/17 [Rx] Allergies/Adverse Reactions: 3 Allergy/AdvReac Type Severity Reaction Status Date / Time lisinopril AdvReac Cough Verified 06/19/17 10:12 Date of admission: 06/19/17 15:38 Primary care physician: Edouard Cole MD Discharging clinician: Carter Ann Anticipated date of discharge: 06/21/17 - Patient Status Disposition: Home, Self-Care Condition: Good Functional capacity at discharge: independent ambulation Overall status at discharge: patient is progressing back to baseline - Ambulatory Orders Ambulatory Orders: Basic Metabolic Panel [CHEM] Time Frame: 3 Days, Facility: [facility], Location: Lab - Discharge Instructions Instructions: Heart Failure (DC), Acute Respiratory Distress Syndrome (DC), Chronic Obstructive Pulmonary Disease (DC) Follow Up With: Edouard Cole MD [Primary Care Provider] - (withi 1 week) Additional Instructions: Follow up with your edge blacker within 1 week Hold Lasix until Monday06/23/17. - Diet and Activity Activity: increase activity as tolerated, wear oxygen at all times Diet: low fat, low cholesterol, low salt diet Hospital course: Ms. Lewis is a 66 year old female patient with a history of atrial fibrillation , CHF, COPD, hypertension and hyperlipidemia who was admitted here with acute on chronic respiratory failure related to acute COPD exacerbation with possible underlying healthcare associated pneumonia and congestive heart failure. She was treated for these conditions with intravenous Lasix and intravenous antibiotics along with intravenous steroids and bronchodilators. Her chest x- ray initially showed findings suggestive of pulmonary congestion and early infiltrates. Her cultures have been negative so far. This morning she feels much better and wishes to go home. She has follow-up appointment set up with her edge blacker and her primary care provider tomorrow and wishes to make it to those appointments. She did have slight worsening of her renal function with a creatinine of 1.19 likely due to intravenous diuretic use. As such I recommend that she hold off on her Lasix for the next day and resume it on Monday. I am also giving her prescriptions to get her basic panel checked later this week. She does use home oxygen but only at bedtime. Patient did have bilateral lower extremity skin changes concerning for cellulitis but this appears to be chronic stasis dermatitis. - Time Spent with Patient Total time spent providing and/or coordinating discharge services: Greater than 30 minutes (40 min) - Constitutional Vitals: Temp Pulse Resp BP Pulse Ox 97.9 F 94 19 131/86 95 06/21/17 07:17 06/21/17 07:17 06/21/17 07:17 06/21/17 07:17 06/21/17 07:17 General appearance: Present: cooperative, mild distress, A&O X 3, morbidly obese , pleasant, answers questions appropriately
[2017-06-21] MEDS: Budesonide/Formoterol 160/4.5 MDI IH SCH (11:11)
[2017-06-21] MEDS ORDERED: Aminoglycoside Consult 1 EACH MC ONE (15:24)
--- NOTE | 2017-06-22 13:25 | Physician Discharge Referral ---
Home Health/Hosp Referral Info Transfer to: Home Health Provider in Charge Post Discharge: PCP - Diagnosis (1) Pneumonia Priority: Primary Status: Acute (2) Acute and chronic respiratory failure Priority: Secondary Status: Acute (3) Acute exacerbation of CHF (congestive heart failure) Priority: Secondary Status: Acute (4) Acute exacerbation of chronic obstructive airways disease Priority: Secondary Status: Acute (5) Bilateral lower leg cellulitis Priority: Secondary Status: Ruled-out (6) Chronic atrial fibrillation Priority: Secondary Status: Chronic (7) HLD (hyperlipidemia) Priority: Secondary Status: Chronic (8) HTN (hypertension) Priority: Secondary Status: Chronic (9) Sleep apnea Priority: Secondary Status: Chronic (10) DVT prophylaxis Priority: Secondary Status: Acute (11) Renal insufficiency, mild Priority: Secondary Status: Acute - Respiratory Orders Oxygen / L per min (3) Smoking Cessation: Smoking cessation has been advised. For more information, call the [place] Tobacco Quit Line at 9-578-GIQL-NOW. - Diet/Nutrition Diet/Nutrition Orders: Cardiac - Activity Activity Orders: Walker - Services Needed Following services are medically necessary services: Nursing, Physical Therapy, Occupational Therapy - Transfer Medications Prescriptions: Cefdinir [Omnicef] 300 mg PO BID #14 capsule Doxycycline Hyclate 100 mg PO BID #14 tablet predniSONE [PredniSONE] 10 mg PO DAILY 12 Days tablet Home Medications: Albuterol Sulfate [Ventolin Hfa] 2 puff IH Q6H PRN 03/13/16 [History] Apixaban [Eliquis] 5 mg PO Q12H 03/13/16 [History] Aspirin Enteric Coated [Aspirin EC] 81 mg PO DAILY 03/13/16 [History] BuPROPion [Wellbutrin] 100 mg PO BID 03/13/16 [History] Calcium Carbonate/Vitamin D3 [Oyster Shell Calcium-Vit D Tab] 500 mg PO BID [History] Citalopram [CeleXA] 60 mg PO DAILY 03/13/16 [History] Digoxin [Lanoxin] 0.25 mg PO DAILY 03/13/16 [History] Ferrous Sulfate 325 mg PO BIDWM 03/13/16 [History] Ipratropium/Albuterol Neb [Duoneb] 3 ml IH Q6HR PRN 03/13/16 [History] Umeclidinium [place] [Incruse Ellipta] 62.5 mcg IH DAILY 08/01/16 [History] Mv,Ca,Min/Iron Fum/FA/Lyco/Lut [Sentry Multivit & Mineral Cplt] 1 tab PO DAILY 10/12/16 [History] Omeprazole [PriLOSEC] 40 mg PO DAILY 10/12/16 [History] Oxygen 2 l NS AD PRN 10/12/16 [History] Diltiazem HCl [Diltiazem ER] 240 mg PO DAILY 05/03/17 [History] Furosemide [Lasix] 80 mg PO BID 05/03/17 [History] Budesonide/Formoterol 160/4.5 [Symbicort 160/4.5] 2 puff IH BIDR 06/19/17 [ History] Cefdinir [Omnicef] 300 mg PO BID #14 capsule 06/21/17 [Rx] Doxycycline Hyclate 100 mg PO BID #14 tablet 06/21/17 [Rx] predniSONE [PredniSONE] 10 mg PO DAILY 12 Days tablet 06/21/17 [Rx] Allergies/Adverse Reactions: 3 Allergy/AdvReac Type Severity Reaction Status Date / Time lisinopril AdvReac Cough Verified 06/19/17 10:12 Certification: Further, I certify that my clinical findings support that this patient is homebound (i.e. absences from home require considerable and taxing effort and are for medical reasons or [employer] services or infrequently or short duration when for other reasons) because: Homebound Reason: Patient requires assistance of a person or device to safely leave home, Severity of cardiac or pulmonary status limits activity tolerance Attestation: My signature below is to certify that this patient is under my care and that I, or nurse practitioner, or a physician's geriatric assistant working with me, has a face-to -face encounter with this patient.
== END 2017-06-21 15:25 | disposition home health service (06) | DRG 193 ==
LOC: 3ANU 10:07 → EMEROO 10:07 → 3ANU 14:43 → SUATTDRO 15:38
PROVIDERS: ADMIT Nurse Practitioner Family; ATTEND Internal Medicine

== ENCOUNTER 2017-08-08 12:15 | Inpatient (IN) ==
[2017-08-08] MEDS ORDERED: 0.9 % Sodium Chloride 1,000 ML IVC ONE (13:05)
--- NOTE | 2017-08-08 13:10 | Emergency Department Note ---
Disposition Clinical Impression: Cellulitis Qualifiers: Site of cellulitis: extremity Site of cellulitis of extremity: lower extremity Laterality: left Qualified Code(s): L03.116 - Cellulitis of left lower limb Disposition: Admitted As Inpatient Condition: Fair Time of Disposition: 15:46 General Adult HPI - General Chief complaint: ED General Medical Stated complaint: general weakness Time Seen by Provider: 08/08/17 12:48 Source: patient, EMS Mode of arrival: ambulatory Limitations: no limitations Nursing Notes Reviewed: Yes Vital Signs Reviewed: Yes - History of Present Illness HPI Narrative: 66-year-old female with a history of COPD, oxygen dependent, A. fib, hypertension and hyperlipidemia presents for evaluation of generalized weakness and pain. Patient states she has been fatigued over the past 4 days. Patient reports generalized muscle pain. Pain is primarily in the lower legs. Patient does have chronic lower leg pain. Patient denies any fevers. No short of breath or chest pain. Denies any recent changes in medications. No abdominal pain. No nausea or vomiting. Patient has been having diarrhea x 1. Patient having decreased by mouth intake. Patient states that she is excessively sleepy. Pain Scale: 0 - Related Data Home Medications Medication Instructions Recorded Confirmed Albuterol Sulfate [Ventolin Hfa] 2 puff IH Q6H PRN 03/13/16 08/08/17 Apixaban [Eliquis] 5 mg PO Q12H 03/13/16 08/08/17 Aspirin Enteric Coated [Aspirin EC] 81 mg PO DAILY 03/13/16 08/08/17 BuPROPion [Wellbutrin] 100 mg PO BID 03/13/16 08/08/17 Calcium Carbonate/Vitamin D3 500 mg PO BID 03/13/16 08/08/17 [Oyster Shell Calcium-Vit D Tab] Citalopram [CeleXA] 60 mg PO DAILY 03/13/16 08/08/17 Digoxin [Lanoxin] 0.25 mg PO DAILY 03/13/16 08/08/17 Ferrous Sulfate 325 mg PO BIDWM 03/13/16 08/08/17 Ipratropium/Albuterol Neb [Duoneb] 3 ml IH Q6HR PRN 03/13/16 08/08/17 Umeclidinium [place] [Incruse 62.5 mcg IH DAILY 08/01/16 08/08/17 Ellipta] Mv,Ca,Min/Iron Fum/FA/Lyco/Lut 1 tab PO DAILY 10/12/16 08/08/17 [Sentry Multivit & Mineral Cplt] Omeprazole [PriLOSEC] 40 mg PO DAILY 10/12/16 08/08/17 Oxygen 2 l NS AD PRN 10/12/16 08/08/17 Diltiazem HCl [Diltiazem ER] 240 mg PO DAILY 05/03/17 08/08/17 Furosemide [Lasix] 80 mg PO BID 05/03/17 08/08/17 Budesonide/Formoterol 160/4.5 2 puff IH BIDR 06/19/17 08/08/17 [Symbicort 160/4.5] Mupirocin [Bactroban Oint] 1 appl TP AD 08/08/17 08/08/17 Allergies Allergy/AdvReac Type Severity Reaction Status Date / Time lisinopril AdvReac Cough Verified 08/08/17 12:21 Constitutional: Reports: as per HPI. Denies: fever Eyes: Reports: as per HPI ENT ED: Reports: as per HPI Cardiovascular: Reports: as per HPI. Denies: chest pain Respiratory: Reports: as per HPI. Denies: dyspnea Gastrointestinal: Reports: as per HPI, diarrhea. Denies: abdominal pain, nausea , vomiting Genitourinary: Reports: as per HPI Musculoskeletal: Reports: as per HPI Integumentary: Reports: as per HPI Neurological: Reports: as per HPI, weakness Psychiatric: Reports: as per HPI Endocrine: Reports: as per HPI Hematological/Lymphatic: Reports: as per HPI Past Medical History - Past Medical History Medical history: Reports: atrial fibrillation, CHF, COPD, GERD, hyperlipidemia, hypertension, other Surgical history: Reports: knee replacement, other Psychiatric history: Reports: depression MERCHANDISE MANAGER history: Reports: no MERCHANDISE MANAGER history - Social History Smoking Status: Current every day smoker Smokeless Tobacco Status: No Alcohol use: Reports: none Drug use: Reports: none Physical Exam - General Limitations: no limitations General appearance: alert, in no apparent distress - Head Head exam: atraumatic, normocephalic, normal inspection - Eye Eye exam: Present: normal appearance, PERRL, EOMI. Absent: scleral icterus - ENT ENT exam: normal exam - Neck Neck exam: Present: normal inspection - Chest Chest inspection: Present: normal inspection - Respiratory Respiratory exam: Present: wheezes (Faint upper expiratory wheeze diminished bibasilar), prolonged expiratory phase - Cardiovascular Cardiovascular exam: Present: tachycardia, irregular rhythm. Absent: systolic murmur - Abdominal Exam Abdominal exam: Present: soft, Non-Tender - Extremities Exam Extremities exam: Present: normal inspection, pedal edema (Trace bilateral pitting) - Expanded Lower Extremity Exam Lower leg exam: Present: other (Extensive erythema and cellulitis along the left leg with purulent discharge. Consistent with cellulitis.) - Neurological Exam Neurological exam: Present: alert, oriented X3, CN II-XII intact - Expanded Neurological Exam Patient oriented to: Present: person, place, time Speech: Present: fluid speech Motor strength - LUE: 5/5 Motor strength - RUE: 5/5 Motor strength - LLE: 5/5 Motor strength - RLE: 5/5 - Skin Skin exam: Present: warm Course Course Narrative: Patient seen and examined. Patient is sleeping and had been awoken at the time of my exam. Patient does not appear to be in any acute distress. Patient has generalized weakness. Patient is neurovascularly intact. Patient will get basic screening evaluation of cardiac EKG troponins. Patient also did a chest x -ray and basic lab work. Patient we treated with IV fluid hydration. Disposition pending. - Reevaluation(s) Reevaluation #1: Patient sleeping on exam. No acute distress. Time: 14:13 Reevaluation #2: Patient seen and examined. Patient is in no acute distress. Patient's resting comfortably. Patient does appear excessively sleepy. Patient has a nonfocal neurologic exam. Time: 15:19 Reevaluation #3: Spoke with Dr. Buchanan for admission. Recommends getting a venous Doppler of the lower extremity. Time: 16:04 Vital Signs Temperature 98.4 F 08/08/17 12:17 Pulse Rate 103 08/08/17 12:17 Respiratory Rate 18 08/08/17 12:17 Blood Pressure 122/75 08/08/17 12:17 O2 Sat by Pulse Oximetry 92 08/08/17 12:17 Temperature 98.4 F 08/08/17 12:17 Pulse Rate 99 08/08/17 15:20 Respiratory Rate 16 08/08/17 16:55 Blood Pressure 131/71 08/08/17 16:55 O2 Sat by Pulse Oximetry 94 08/08/17 15:20 Oxygen Delivery Oxygen Delivery Nasal Cannula Medical Decision Making - MDM Narrative Medical decision making narrative: 66 year old female presents for evaluation of generalized weakness and muscle pains. Patient states that she is generally weak over the past 4 days. Denies any URI symptoms. Patient states that she does not feel that she can ambulate without assistance. Denies any falls. Patient's review of systems otherwise unremarkable. Patient had a cardiopulmonary evaluation with EKG and chest x- ray. Chest x-ray shows mild pulmonary congestion. EKG shows no acute abnormalities. Patient's leukocytosis likely secondary to his extensive cellulitis along her left lower leg. Does have purulent drainage. Patient's x- ray of the left leg shows left knee arthroscopy with no other acute abnormalities. Patient's symptoms likely secondary to her cellulitis of her left leg. Hospital's recommends getting a venous Doppler which was ordered from the emergency department. Patient is on Xarelto however. Patient's urine shows few bacteria with nitrites without leukoesterase. Patient's CPK was unremarkable. Patient will be started on antibiotics. - Lab Data Lab results reviewed: Yes I reviewed the patient's lab results. Result diagrams: 08/08/17 13:12 08/08/17 13:12 Lab Results 08/08/17 08/08/17 08/08/17 Range/Units 13:12 13:12 13:12 WBC 22.1 H (4.3-11.1) K/mcL RBC 4.58 (3.82-4.97) M/mcL Hgb 11.5 (11.5-15.4) g/dL Hct 36.8 (35.3-44.9) % MCV 80.3 L (83.0-100.0) fL MCH 25.1 L (28.0-33.3) pg MCHC 31.3 L (31.6-35.5) g/dL RDW 15.4 H (11.5-14.5) % Plt Count 266 (140-400) K/mcL MPV 10.1 (9.4-12.4) fL Immature Gran % 1.0 (0-4) % Seg Neutrophils % 86.1 % Lymphocytes % 4.1 % Monocytes % 7.7 % Eosinophils % 0.8 % Basophils % 0.3 % Neutrophils # 19.0 H (1.6-8.9) K/mcL Lymphocytes # 0.9 (0.6-4.6) K/mcL Monocytes # 1.7 H (0.0-1.3) K/mcL Eosinophils # 0.2 (0.0-0.6) K/mcL Basophils # 0.1 (0.0-0.2) K/mcL Sodium 132 L (136-145) mEq/L Potassium 3.8 (3.5-5.1) mEq/L Chloride 99 (98-107) mEq/L Carbon Dioxide 26 (23-29) mEq/L BUN 19 (8-23) mg/dL Creatinine 1.07 (0.60-1.20) mg/dL Est GFR ( Amer) > 60 (> 60) Est GFR (Non-Af Amer) 51 L (> 60) BUN/Creatinine Ratio 18 (6-26) Glucose 124 H (70-105) mg/dL Calculated Osmolality 278 L (280-300) Calcium 9.1 (8.6-10.3) mg/dL Total Bilirubin 0.7 (0.3-1.0) mg/dL Direct Bilirubin 0.4 H (0.0-0.2) mg/dL Indirect Bilirubin 0.3 (0.0-1.2) mg/dL AST 62 H (13-39) Units/L ALT 33 (7-52) Units/L Alkaline Phosphatase 107 H (34-104) Units/L Creatine Kinase 64 (30-223) Units/L Troponin I < 0.03 (< 0.04) ng/mL Serum Total Protein 6.8 (6.4-8.9) g/dL Albumin 3.2 L (3.5-5.7) g/dL Globulin 3.6 H (2.4-3.5) g/dL Albumin/Globulin Ratio 0.9 L (1.1-2.2) Urine Color (Yellow) Urine Clarity (Clear) Urine pH (5.0-8.0) pH Units Ur Specific [place] (1.010-1.025) Urine Protein (Neg-Trace) mg/dL Urine Glucose (UA) (Normal) mg/dL Urine Ketones (Negative) mg/dL Urine Blood (Negative) Urine Nitrite (Negative) Urine Bilirubin (Negative) Urine Urobilinogen (Normal) mg/dL Ur Leukocyte Esterase (Negative) Urine Microscopic RBC (0-3) per hpf Urine Microscopic WBC (0-3) per hpf Ur Squamous Epith Cells (None-Few) per lpf Urine Bacteria (None-Few) per hpf Ur Culture Indicated? (NO) Digoxin 1.0 (0.8-2.0) ng/mL 08/08/ Range/Units 14:19 WBC (4.3-11.1) K/mcL RBC (3.82-4.97) M/mcL Hgb (11.5-15.4) g/dL Hct (35.3-44.9) % MCV (83.0-100.0) fL MCH (28.0-33.3) pg MCHC (31.6-35.5) g/dL RDW (11.5-14.5) % Plt Count (140-400) K/mcL MPV (9.4-12.4) fL Immature Gran % (0-4) % Seg Neutrophils % % Lymphocytes % % Monocytes % % Eosinophils % % Basophils % % Neutrophils # (1.6-8.9) K/mcL Lymphocytes # (0.6-4.6) K/mcL Monocytes # (0.0-1.3) K/mcL Eosinophils # (0.0-0.6) K/mcL Basophils # (0.0-0.2) K/mcL Sodium (136-145) mEq/L Potassium (3.5-5.1) mEq/L Chloride (98-107) mEq/L Carbon Dioxide (23-29) mEq/L BUN (8-23) mg/dL Creatinine (0.60-1.20) mg/dL Est GFR ( Amer) (> 60) Est GFR (Non-Af Amer) (> 60) BUN/Creatinine Ratio (6-26) Glucose (70-105) mg/dL Calculated Osmolality (280-300) Calcium (8.6-10.3) mg/dL Total Bilirubin (0.3-1.0) mg/dL Direct Bilirubin (0.0-0.2) mg/dL Indirect Bilirubin (0.0-1.2) mg/dL AST (13-39) Units/L ALT (7-52) Units/L Alkaline Phosphatase (34-104) Units/L Creatine Kinase (30-223) Units/L Troponin I (< 0.04) ng/mL Serum Total Protein (6.4-8.9) g/dL Albumin (3.5-5.7) g/dL Globulin (2.4-3.5) g/dL Albumin/Globulin Ratio (1.1-2.2) Urine Color Dark Yellow (Yellow) Urine Clarity Cloudy A (Clear) Urine pH 6.0 (5.0-8.0) pH Units Ur Specific [place] 1.028 H (1.010-1.025) Urine Protein 30 H (Neg-Trace) mg/dL Urine Glucose (UA) Normal (Normal) mg/dL Urine Ketones Trace H (Negative) mg/dL Urine Blood Small H (Negative) Urine Nitrite Positive A (Negative) Urine Bilirubin Moderate H (Negative) Urine Urobilinogen 4.0 H (Normal) mg/dL Ur Leukocyte Esterase Negative (Negative) Urine Microscopic RBC 0-3 (0-3) per hpf Urine Microscopic WBC 5-15 H (0-3) per hpf Ur Squamous Epith Cells Many H (None-Few) per lpf Urine Bacteria Few (None-Few) per hpf Ur Culture Indicated? NO (NO) Digoxin (0.8-2.0) ng/mL - Radiology Data Radiology results reviewed: Yes I reviewed the patient's radiology results. Chest X-Ray 08/08/17 13:07 IMPRESSION: 1. Cardiomegaly with mild vascular congestion. D/ / Kavon Martin MD / Kavon Martin MD Interpreting Provider: Kavon Martin MD Chest X-Ray 08/08/17 13:07 IMPRESSION: 1. Cardiomegaly with mild vascular congestion. D/ / Kavon Martin MD / Kavon Martin MD Interpreting Provider: Kavon Martin MD Knee X-Ray 08/08/17 15:42 IMPRESSION: 1. Left knee arthroplasty with no acute abnormality. D/ / Kavon Martin MD / Kavon Martin MD Interpreting Provider: Kavon Martin MD - EKG Data EKG #1 EKG attestation: Yes I reviewed and interpreted this EKG. Rhythm: A.Fib Jessie/QRS: normal Q waves: aVR When compared to previous EKG there are: no significant changes Interpretation: no acute changes S.B.A.RAlexus - S.B.AAlexusRAlexus Situation: Demographics Background: Presenting Complaint Assessment: Vital Signs, Course and respsone to treatment Recommendation: Barrier(s) to disposition, Recommendation based on pending studies, treatments, or consults S.B.A.RAlexus Report Given to: Dr. Chanel Saucedo Repor Time: 16:03 Attestation Statement - Attestation Attestation: I examined this patient and my medical decision-making was reviewed with the Resident Physician. I agree with the documented findings, disposition and treatment plan as described except to the extent set forth below. Patient presents to the ED from home. States she just does not feel well. States she hurts all over. No fever that she knows of. No chest pain. She is not short of breath. States she is achy. On examination she is in no distress. She is an avid erythematous left leg. Her abdomen soft nontender. Her lungs are clear. Plan. The patient's significant leukocytosis. Her children and this is cellulitis of her leg. Starting IV antibiotic and will admit. Hospitalist requesting US TO RULE OUT DVT.
[2017-08-08 13:18] LABS: Basophils # 0.1 K/mcL (0.0-0.2); Basophils % 0.3 %; Eosinophils # 0.2 K/mcL (0.0-0.6); Eosinophils % 0.8 %; Hematocrit 36.8 % (35.3-44.9); Hemoglobin 11.5 g/dL (11.5-15.4); Lymphocytes # 0.9 K/mcL (0.6-4.6); Lymphocytes % 4.1 %; Mean Corpuscular HGB Conc 31.3 g/dL (31.6-35.5); Mean Corpuscular Hemoglobin 25.1 pg (28.0-33.3); Mean Corpuscular Volume 80.3 fL (83.0-100.0); Mean Platelet Volume 10.1 fL (9.4-12.4); Monocytes # 1.7 K/mcL (0.0-1.3); Monocytes % 7.7 %; Platelet Count 266 K/mcL (140-400); Red Blood Count 4.58 M/mcL (3.82-4.97); Red Cell Distribution Width 15.4 % (11.5-14.5); Segmented Neutrophils % 86.1 %
[2017-08-08 13:37] LABS: Alanine Aminotransferase 33 Units/L (7-52); Albumin 3.2 g/dL (3.5-5.7); Albumin/Globulin Ratio 0.9 (1.1-2.2); Alkaline Phosphatase 107 Units/L (34-104); Aspartate Amino Transferase 62 Units/L (13-39); BUN/Creatinine Ratio 18 (6-26); Bilirubin,Direct 0.4 mg/dL (0.0-0.2); Bilirubin,Indirect 0.3 mg/dL (0.0-1.2); Bilirubin,Total 0.7 mg/dL (0.3-1.0); Blood Urea Nitrogen 19 mg/dL (8-23); Calcium 9.1 mg/dL (8.6-10.3); Carbon Dioxide 26 mEq/L (23-29); Chloride 99 mEq/L (98-107); Globulin 3.6 g/dL (2.4-3.5); Glucose 124 mg/dL (70-105); Osmolality,Calculated 278 (280-300); Potassium 3.8 mEq/L (3.5-5.1); Sodium 132 mEq/L (136-145); Total Protein 6.8 g/dL (6.4-8.9); eGFR For African Americans > 60 (> 60); eGFR For Non-African Americans 51 (> 60)
[2017-08-08 14:09] LABS: Creatine Kinase 64 Units/L (30-223)
[2017-08-08 14:34] LABS: Bilirubin,Urine Moderate (Negative); Blood,Urine Small (Negative); Clarity,Urine Cloudy (Clear); Color,Urine Dark Yellow (Yellow); Glucose,Urine (UA) Normal (Normal); Ketones,Urine Trace mg/dL (Negative); Leukocyte Esterase,Urine Negative (Negative); Nitrite,Urine Positive (Negative); Protein,Urine 30 mg/dL (Neg-Trace); Specific Gravity,Urine 1.028 (1.010-1.025)
[2017-08-08 14:36] LABS: Squamous Epithelial Cell,Urine Many per lpf (None-Few)
[2017-08-08 15:09] LABS: Bacteria,Urine Few per hpf (None-Few); RBC,Urine 0-3 per hpf (0-3)
[2017-08-08] MEDS ORDERED: Vancomycin 2,000 MG in D5% in Water 500 ML IVPB ONE (15:31)
[2017-08-08] MEDS ORDERED: *HR* HYDROmorphone (PF) 1 MG/ML SYRINGE IVP PRN (21:05)
[2017-08-08] MEDS ORDERED: Acetaminophen 325 MG TABLET PO PRN (21:05)
[2017-08-08] MEDS ORDERED: Naloxone 0.4 MG/ML INJ IVP PRN (21:11)
[2017-08-08] MEDS ORDERED: Benzonatate 100 MG CAPSULE PO PRN (21:17)
[2017-08-08] MEDS: Apixaban 5 MG TABLET PO SCH (21:50)
[2017-08-08] MEDS: *HR* HYDROcodone/Acet 5/325 mg TABLET PO PRN (21:50)
--- NOTE | 2017-08-08 21:56 | Internal Med History&Physical ---
Date of Encounter: 08/08/17 Time of Encounter: 19:30 Assessment and Plan (1) Cellulitis of left lower extremity Current visit: Yes Status: Acute Acute cellulitis of the LLE. Pt. has hx of cellulitis of the LEs in the past. LLE is edematous and erythematous w/drainage. Pt. reports hx of MRSA, but nasal screen on 10/07/16 and recent cultures negative for MRSA. US of LLE ordered. Blood cultures x 2. Wound culture ordered. Wound Care consult ordered. Daily wound care ordered. IVPB clindamycin 900 mg Q8 for infection coverage. Will adjust abx coverage based on culture results. Pt. reports weakness in LEs so falls/safety precautions ordered as well as PT/OT consults. Pt. discussed w/Dr. Winters who is in agreement w/plan of care. Pt. is at high risk for sepsis and further morbidity d/t recurrent cellulitic infection of LE, current sx, and hx. Inpatient. (2) Sepsis Current visit: Yes Status: Acute Pt. currently meets sepsis criteria w/WBC of 22.1, HR >90, and cellulitis infection of the LLE. Lactic acid 0.6. Blood cultures x 2. Wound culture ordered. IVPB Clindamycin for cellulitis infection coverage. Pt. given 1L bolus of 0.9 NS in ED. Will f/u w/100 mL/HR. Communication order to monitor pt. for fluid overload/respiratory distress d/t hx of CHF. Will adjust abx coverage based on culture results. Monitor pt. and f/u labs. Qualifiers: Sepsis type: sepsis due to unspecified organism Qualified Code(s): A41.9 - Sepsis, unspecified organism (3) SOB (shortness of breath) Current visit: Yes Status: Acute SOB and dyspnea r/t COPD dx. Supplemental O2 w/titration and SpO2 monitoring. DuoNebs Q6 scheduled. Tessalon 200 mg TID for cough. (4) Generalized weakness Current visit: Yes Status: Acute Acute generalized weakness and pain for the past 3-[address] Stair-step pain medications for pain mgmt. Falls/safety precautions for weakness. PT/OT consults ordered to assess for ambulation strength, safety, and stability. (5) COPD (chronic obstructive pulmonary disease) Current visit: Yes Status: Chronic Hx of chronic COPD. Pt. reports SOB and dyspnea r/t COPD but is not in acute exacerbation currently. Supplemental O2 with titration and SPO2 monitoring. DuoNeb Q6 scheduled. Tessalon 200 mg TID for cough. Qualifiers: COPD type: unspecified COPD Qualified Code(s): J44.9 - Chronic obstructive pulmonary disease, unspecified (6) GERD (gastroesophageal reflux disease) Current visit: Yes Status: Chronic Hx of chronic GERD. IVP Zofran every 6 when necessary. Continue pts. Prilosec. Qualifiers: Esophagitis presence: esophagitis presence not specified Qualified Code(s) : K21.9 - Gastro-esophageal reflux disease without esophagitis (7) HLD (hyperlipidemia) Current visit: Yes Status: Chronic Hx of chronic HLD. Patient states she currently does not take HLD medication. Lipid panel in a.m. labs. Lipitor 20 mg at bedtime ordered. Qualifiers: Hyperlipidemia type: pure hypercholesterolemia Qualified Code(s): E78.00 - Pure hypercholesterolemia, unspecified; E78.0 - Pure hypercholesterolemia (8) HTN (hypertension) Current visit: Yes Status: Chronic Hx of chronic HTN. Monitor patient vital signs. Continue diltiazem and digoxin. Qualifiers: Hypertension type: essential hypertension Qualified Code(s): I10 - Essential (primary) hypertension (9) Chronic atrial fibrillation Current visit: Yes Status: Chronic Hx of chronic atrial fibrillation. Continuous cardiac telemetry. Echocardiogram ordered. Continue aspirin therapy, eloquence, and digoxin. Digoxin level WNL on labs. (10) Sleep apnea Current visit: Yes Status: Chronic Hx of chronic sleep apnea. Patient reports emotion and use but denies use of CPAP or BiPAP. Supplemental O2 with titration and SPO2 monitoring. Qualifiers: Sleep apnea type: unspecified type Qualified Code(s): G47.30 - Sleep apnea , unspecified (11) DVT prophylaxis Current visit: Yes Status: Acute Heparin 5,000 units SQ Q8 for DVT prophylaxis. Monitor pt. for signs of bleeding. Internal Medicine - H&P: HPI Chief complaint: Weakness/LLE pain Admitted From: Emergency Dept Plans for Post Hospital Care: Home History of present illness: Ms. Lewis is a 66 year old female with medical hx of atrial fibrillation, CHF, COPD, GERD, HLD, and HTN presents from the ED with chief complaint of all-over pain and weakness as well as pain, edema, and drainage from the left lower extremity for the past 3-4 days. She states that the drainage is intermittent and is sero-sanguineous. Pt. reports that she has history of chronic cellulitis of the LEs. Pt. also reports SOB, dyspnea, and cough that is chronic r/t COPD. Pt denies recent illness, fever, chills, nausea, vomiting, headache, changes in vision, chest pain, palpitations, abdominal pain, unusual bleeding, dizziness, lightheadedness, numbness, tingling, pre-syncope, or syncope. Past Med Surg Social Fam HX - Past Medical History Source: patient, old records reviewed Medical history: atrial fibrillation, CHF, COPD, GERD, hyperlipidemia, hypertension, other Psychiatric history: depression - Past Surgical History Surgical History: knee replacement, other - Social History Smoking Status: Current every day smoker Packs per day: 1 PPD Smokeless Tobacco Status: No Alcohol use: none Drug use: none Current living situation: Home Activity Level: Uses cane/walker Recent Out of Country Travel Within the Last 8 Weeks: No Exposure or Possible Exposure to Illness During Travel: No - Family History Mother Adopted: No Race: Family Member Ethnicity: Non- Living Status: Age at : 79 Cause of : Stroke Hx Family Cardiac Disorders: Yes (TIAs, CVA, HTN) Hx Family Respiratory Disorders: Yes Hx Family Cancer: Yes Hx Family GI Disorders: No Hx Family Endocrine Disorder: Yes Hx Family Neuromuscular Disorders: No Hx Family Neurologic Disorders: No Hx Family HEENT Disorders: No Hx Family Autoimmune Disorders: No Father Race: Family Member Ethnicity: Non- Living Status: Age at : 79 Cause of : Colon cancer Hx Family Cardiac Disorders: No Hx Family Respiratory Disorders: Yes Hx Family Cancer: Yes (Colon) Hx Family GI Disorders: No Hx Family Endocrine Disorder: Yes Hx Family Neuromuscular Disorders: No Hx Family Neurologic Disorders: No Hx Family HEENT Disorders: No Hx Family Autoimmune Disorders: No Brother Adopted: No Race: Family Member Ethnicity: Non- Living Status: Age at : 66 Cause of : Colon cancer Hx Family Cardiac Disorders: Yes Hx Family Respiratory Disorders: No Hx Family Cancer: Yes (Colon) Hx Family GI Disorders: No Hx Family Endocrine Disorder: Yes Hx Family Neuromuscular Disorders: No Hx Family Neurologic Disorders: Yes Hx Family HEENT Disorders: No Hx Family Autoimmune Disorders: No Sister Race: Family Member Ethnicity: Non- Living Status: Still Living Hx Family Cardiac Disorders: Yes (HTN, PAD) Hx Family Respiratory Disorders: Yes (COPD) Internal Medicine - H&P: Meds Albuterol Sulfate [Ventolin Hfa] 2 puff IH Q6H PRN 03/13/16 [History] Apixaban [Eliquis] 5 mg PO Q12H 03/13/16 [History] Aspirin Enteric Coated [Aspirin EC] 81 mg PO DAILY 03/13/16 [History] BuPROPion [Wellbutrin] 100 mg PO BID 03/13/16 [History] Calcium Carbonate/Vitamin D3 [Oyster Shell Calcium-Vit D Tab] 500 mg PO BID [History] Citalopram [CeleXA] 60 mg PO DAILY 03/13/16 [History] Digoxin [Lanoxin] 0.25 mg PO DAILY 03/13/16 [History] Ferrous Sulfate 325 mg PO BIDWM 03/13/16 [History] Ipratropium/Albuterol Neb [Duoneb] 3 ml IH Q6HR PRN 03/13/16 [History] Umeclidinium [place] [Incruse Ellipta] 62.5 mcg IH DAILY 08/01/16 [History] Mv,Ca,Min/Iron Fum/FA/Lyco/Lut [Sentry Multivit & Mineral Cplt] 1 tab PO DAILY 10/12/16 [History] Omeprazole [PriLOSEC] 40 mg PO DAILY 10/12/16 [History] Oxygen 2 l NS AD PRN 10/12/16 [History] Diltiazem HCl [Diltiazem ER] 240 mg PO DAILY 05/03/17 [History] Furosemide [Lasix] 80 mg PO BID 05/03/17 [History] Budesonide/Formoterol 160/4.5 [Symbicort 160/4.5] 2 puff IH BIDR 06/19/17 [ History] Mupirocin [Bactroban Oint] 1 appl TP AD 08/08/17 [History] 3 Allergy/AdvReac Type Severity Reaction Status Date / Time lisinopril AdvReac Cough Verified 08/08/17 12:21 All Systems PM: A 10-system review of systems was performed and is negative for pertinent findings except as documented above in the HPI. - Constitutional Constitutional: as per HPI, weakness, other (All-over pain), no chills, no fever (s), no night sweats - EENT Eyes: no change in vision, no discharge, no pain, no photophobia Ears: no ear discharge, no ear pain, no tinnitus Nose, mouth and throat: no dysphagia, no nasal discharge, no neck pain, no sore throat - Breasts Breasts: as per HPI - Cardiovascular Cardiovascular ROS IM: as per HPI, no chest pain, no diaphoresis, no dyspnea (d/ t COPD), no lightheadedness, no palpitations, no syncope - Respiratory Respiratory: as per HPI, cough, dyspnea, wheezing - Gastrointestinal Gastrointestinal: no abdominal pain, no diarrhea, no hematemesis, no hematochezia, no melena, no nausea, no vomiting - Genitourinary Genitourinary: no change in urinary stream, no dysuria, no flank pain, no hematuria Menstruation: as per HPI - Musculoskeletal Musculoskeletal ROS IM: no numbness, no tingling - Integumentary Integumentary IM: no rash, no unusual bruising - Neurological Neurological ROS: no confusion, no convulsions, no focal weakness, no numbness, no tingling, no tremor(s) - Psychiatric Psychiatric: as per HPI - Endocrine Endocrine IM: as per HPI - Hematologic/Lymphatic Hematologic/Lymphatic: no easy bruising - Allergic/Immunologic Allergic/Immunologic: as per HPI - Constitutional Vitals: Temp Pulse Resp BP Pulse Ox 98.0 F 90 18 107/73 94 08/08/17 18:39 08/08/17 18:39 08/08/17 18:39 08/08/17 18:39 08/08/17 21:22 General appearance: Present: cooperative, mild distress, A&O X 3, morbidly obese , pleasant, answers questions appropriately - Head Head exam: Present: atraumatic, normal inspection, normocephalic - Eye Eye exam: Present: PERRL, conjuntiva pink, sclera anicteric Pupils: Present: PERRL - ENT ENT exam: Present: normal exam, normal external ear exam - Neck Neck exam general surgery: Present: normal inspection, supple, trachea midline. Absent: lymphadenopathy - Respiratory Respiratory exam: Present: accessory muscle use, wheezes (Bilateral) - Cardiovascular Cardiovascular exam: Present: irregular rhythm (Atrial fibrillation) - GI/Abdominal GI/Abdominal exam: Present: normal bowel sounds, soft, no peritoneal signs. Absent: distended, tenderness - Rectal Rectal exam: Present: deferred - Additional comments: exam deferred. - Extremities Exam Extremities exam: Present: pedal edema (2+ pitting edema and erythema bilaterally, but worse on LLE), warm, radial pulses palpable and symmetrical. Absent: calf tenderness, cyanotic - Back Exam Back exam: Present: normal inspection - Neurological Exam Neurological exam: Present: CN II-XII intact, oriented X3, no focal deficits. Absent: pronater drift, facial droop, speech deficit - Psychiatric Psychiatric exam: Present: normal affect, normal mood - Skin Skin exam: Present: erythema (LLE w/scabbing and discharge) Internal Med - H&P Results - Labs CBC & Chem 7: 08/08/17 13:12 08/08/17 13:12 - EKG Data Prior EKG available for review: no EKG comments: 08/08/17 22:04 EKG dated 08/08/17 shows atrial fibrillation and nonspecific T-wave abnormality. - Diagnostic Studies Other Images Additional comments: Impressions Knee X-Ray 08/08/17 15:42 IMPRESSION: 1. Left knee arthroplasty with no acute abnormality. D/ / Kavon Martin MD / Kavon Martin MD Interpreting Provider: Kavon Martin MD Chest x-ray Additional comments: Impressions Chest X-Ray 08/08/17 13:07 IMPRESSION: 1. Cardiomegaly with mild vascular congestion. D/ / Kavon Martin MD / Kavon Martin MD Interpreting Provider: Kavon Martin MD
[2017-08-08] MEDS ORDERED: 0.9 % Sodium Chloride 1,000 ML IVC SCH (22:45)
[2017-08-08] MEDS: 0.9 % Sodium Chloride 1,000 ML IVC SCH (23:01)
[2017-08-08] MEDS: Clindamycin 900 MG/50 ML 900 MG/50 ML IV.SOLN IVPB SCH (23:07)
[2017-08-08] MEDS: Budesonide/Formoterol 160/4.5 MDI IH SCH (23:32)
[2017-08-08] MEDS: Ipratropium/Albuterol Neb 3 ML IH SCH (23:32)
[2017-08-09] MEDS: Ipratropium/Albuterol Neb 3 ML IH SCH ×4 (03:51→21:56)
[2017-08-09] MEDS: *HR* HYDROcodone/Acet 5/325 mg TABLET PO PRN ×2 (04:55→09:32)
[2017-08-09 06:42] LABS: Basophils # 0.1 K/mcL (0.0-0.2); Basophils % 0.4 %; Eosinophils # 0.4 K/mcL (0.0-0.6); Eosinophils % 2.2 %; Hematocrit 36.3 % (35.3-44.9); Hemoglobin 10.9 g/dL (11.5-15.4); Immature Granulocytes % 0.9 % (0-4); Lymphocytes # 0.8 K/mcL (0.6-4.6); Lymphocytes % 4.5 %; Mean Corpuscular Hemoglobin 24.7 pg (28.0-33.3); Mean Corpuscular Volume 82.1 fL (83.0-100.0); Mean Platelet Volume 10.3 fL (9.4-12.4); Monocytes # 1.3 K/mcL (0.0-1.3); Monocytes % 7.7 %; Platelet Count 290 K/mcL (140-400); Red Blood Count 4.42 M/mcL (3.82-4.97); Red Cell Distribution Width 15.7 % (11.5-14.5); Segmented Neutrophils % 84.3 %
[2017-08-09 06:47] LABS: INR 1.5; Prothrombin Time 16.7 Seconds (9.4-12.1)
[2017-08-09 06:50] LABS: Activated Partial Thrombo Time 32.6 Seconds (26.0-36.0)
[2017-08-09 06:54] LABS: Hemoglobin A1C 5.4 %
[2017-08-09 07:09] LABS: Alanine Aminotransferase 42 Units/L (7-52); Albumin/Globulin Ratio 0.9 (1.1-2.2); Alkaline Phosphatase 103 Units/L (34-104); Aspartate Amino Transferase 62 Units/L (13-39); BUN/Creatinine Ratio 24 (6-26); Bilirubin,Total 0.6 mg/dL (0.3-1.0); Blood Urea Nitrogen 21 mg/dL (8-23); Calcium 8.9 mg/dL (8.6-10.3); Carbon Dioxide 26 mEq/L (23-29); Chloride 102 mEq/L (98-107); Chol/HDL Ratio 5.9 (0-4.9); Cholesterol 89 mg/dL (< 200); Globulin 3.4 g/dL (2.4-3.5); Glucose 108 mg/dL (70-105); HDL Cholesterol 15 mg/dL (40-59); LDL Cholesterol,Calculated 54 mg/dL (0-99); Magnesium 2.1 mg/dL (1.6-2.6); Osmolality,Calculated 284 (280-300); Potassium 3.9 mEq/L (3.5-5.1); Sodium 135 mEq/L (136-145); Total Protein 6.4 g/dL (6.4-8.9); Triglycerides 101 mg/dL (< 150); eGFR For African Americans > 60 (> 60); eGFR For Non-African Americans > 60 (> 60)
[2017-08-09] MEDS ORDERED: [UNRECOGNIZED DRUG - OTHER] PO SCH (09:00)
[2017-08-09] MEDS ORDERED: (Calcium Carbonate/Vitamin D3 [Oyster Shell Calcium-V) PO SCH (09:00)
--- NOTE | 2017-08-09 09:22 | Internal Med Progress Note ---
<Miguel Angel Woo - Last Filed: 08/09/17 11:35> Date of Encounter: 08/09/17 Time of Encounter: 08:45 - Assessment and plan (1) Bacteremia due to Gram-positive bacteria Current Visit: Yes Status: Acute Assessment and plan: On admission, patient had sepsis criteria. - WBC of 22.1, HR >90, and cellulitis infection of the LLE. Pt. given 1L bolus of 0.9 NS in ED. WBC trending down -> 16.7 HR in 80s Continue IVF Blood cultures showing Gram Positive Rods - Switching Clindamycin to Vancomycin for added GP coverage (2) Cellulitis of left lower extremity Current Visit: Yes Status: Acute Assessment and plan: Patient has hx of cellulitis of the LEs in the past LLE is edematous and erythematous with drainage - Dressing in place this morning Pt. reports hx of MRSA, but nasal screen on 10/07/16 and recent cultures negative for MRSA US of LLE ordered Wound culture ordered Wound Care consult ordered with daily wound care ordered WBC trending down 22.1 -> 16.7 VSS Blood cultures showing Gram Positive Rods - Switching Clindamycin to Vancomycin for added GP coverage (3) Sepsis Current Visit: No Status: Acute Assessment and plan: See above Qualifiers: Sepsis type: sepsis due to unspecified organism Qualified Code(s): A41.9 - Sepsis, unspecified organism (4) CHF (congestive heart failure) Current Visit: Yes Status: Chronic Assessment and plan: Unaware of baseline LLE edema, 2+ pitting edema today CXR showing mild vascular congestion Takes 80mg Lasix BID at home Will continue Lasix home dose, ASA, statin - monitor kidney function Recommend further optimization as outpatient ECHO pending Check BNP Qualifiers: Congestive heart failure type: unspecified congestive heart failure type Congestive heart failure chronicity: chronic Qualified Code(s): I50.9 - Heart failure, unspecified (5) COPD (chronic obstructive pulmonary disease) Current Visit: No Status: Chronic Assessment and plan: Appears to be improving since admission per patient Will continue O2 with duonebs and tessalon for now Qualifiers: COPD type: unspecified COPD Qualified Code(s): J44.9 - Chronic obstructive pulmonary disease, unspecified (6) GERD (gastroesophageal reflux disease) Current Visit: Yes Status: Chronic Assessment and plan: Well controlled PPI therapy PRN Zofran Qualifiers: Esophagitis presence: esophagitis presence not specified Qualified Code(s) : K21.9 - Gastro-esophageal reflux disease without esophagitis (7) HTN (hypertension) Current Visit: Yes Status: Chronic Assessment and plan: Only medications are diltiazem and digoxin. Will continue unchanged. BP stable this morning Qualifiers: Hypertension type: essential hypertension Qualified Code(s): I10 - Essential (primary) hypertension (8) SOB (shortness of breath) Current Visit: Yes Status: Acute Assessment and plan: Improving Occasional wheezing heard on examination today Duonebs O2 Tessalon (9) HLD (hyperlipidemia) Current Visit: Yes Status: Chronic Assessment and plan: Lipid panel checked HDL low at 15 Will continue statin therapy Qualifiers: Hyperlipidemia type: pure hypercholesterolemia Qualified Code(s): E78.00 - Pure hypercholesterolemia, unspecified; E78.0 - Pure hypercholesterolemia (10) Generalized weakness Current Visit: Yes Status: Acute Assessment and plan: Continue falls precautions Patient states that she can ambulate but is difficult PT and OT to assess (11) Chronic atrial fibrillation Current Visit: Yes Status: Chronic Assessment and plan: ECHO performed this morning - report pending Cardiac monitoring ASA Sonya Digoxin (level checked and appropriate) (12) Sleep apnea Current Visit: Yes Status: Chronic Assessment and plan: No history of CPAP use Will continue to supplement O2 as needed Qualifiers: Sleep apnea type: unspecified type Qualified Code(s): G47.30 - Sleep apnea , unspecified (13) Morbid obesity Current Visit: No Status: Chronic Assessment and plan: BMI 50.4 (14) DVT prophylaxis Current Visit: Yes Status: Acute Assessment and plan: Heparin 5000 units q8hrs - Subjective Interval history: Patient is resting comfortably in the bed this morning while getting her bedside ECHO No new complaints this morning States that feels much better since admission Nursing has no events overnight Denies any CP, fevers, SOB, cough, n/v, or palpitations - Constitutional Vitals: Temp Pulse Resp BP Pulse Ox 97.6 F 92 18 130/73 95 08/09/17 05:52 08/09/17 05:52 08/09/17 05:52 08/09/17 05:52 08/09/17 08:11 General appearance: Present: cooperative, mild distress, A&O X 3, morbidly obese , pleasant, answers questions appropriately - Head Head exam: Present: atraumatic, normocephalic - Eye Eye exam: Present: EOMI, normal appearance - ENT ENT exam: Present: mucous membranes moist - Neck Neck exam general surgery: Present: supple, trachea midline - Respiratory Respiratory exam: Present: wheezes. Absent: chest wall tenderness, respiratory distress - Cardiovascular Cardiovascular exam: Present: irregular rhythm - GI/Abdominal GI/Abdominal exam: Present: normal bowel sounds, soft. Absent: tenderness - Extremities Exam Extremities exam: Present: pedal edema (2+ bilateral) - Neurological Exam Neurological exam: Present: alert, oriented X3, no focal deficits - Psychiatric Psychiatric exam: Present: normal affect, normal mood - Skin Skin exam: Present: erythema (LLE with drainage, dressing present withou shadowing), warm Internal Medicine: Result - Labs CBC & Chem 7: 08/09/17 06:14 08/09/17 06:14 Labs: Short CBC 08/09/17 Range/Units 06:14 WBC 16.7 H (4.3-11.1) K/mcL Hgb 10.9 L (11.5-15.4) g/dL Hct 36.3 (35.3-44.9) % Plt Count 290 (140-400) K/mcL Neutrophils # 14.0 H (1.6-8.9) K/mcL BMP 08/09/17 06:14 Sodium 135 L Potassium 3.9 Chloride 102 Carbon Dioxide 26 BUN 21 Creatinine 0.88 Glucose 108 H Calcium 8.9 Liver Function 08/09/17 Range/Units 06:14 Total Bilirubin 0.6 (0.3-1.0) mg/dL AST 62 H (13-39) Units/L ALT 42 (7-52) Units/L Alkaline Phosphatase 103 (34-104) Units/L Albumin 3.0 L (3.5-5.7) g/dL - ABG Interpretation ABG results: PT/INR, D-dimer PT 16.7 Seconds (9.4-12.1) H 08/09/17 06:14 Consult Discharge Plan - Plan Referrals: Edouard Cole MD [Primary Care Provider] - <Kirt Simmons - Last Filed: 08/09/17 18:22> Date of Encounter: 08/09/17 - Constitutional Vitals: Temp Pulse Resp BP Pulse Ox 97.6 F 89 16 106/73 96 08/09/17 14:30 08/09/17 14:30 08/09/17 14:30 08/09/17 14:30 08/09/17 14:30 Internal Medicine: Result - Labs CBC & Chem 7: 08/09/17 06:14 08/09/17 06:14 Labs: Short CBC 08/09/17 Range/Units 06:14 WBC 16.7 H (4.3-11.1) K/mcL Hgb 10.9 L (11.5-15.4) g/dL Hct 36.3 (35.3-44.9) % Plt Count 290 (140-400) K/mcL Neutrophils # 14.0 H (1.6-8.9) K/mcL BMP 08/09/17 06:14 Sodium 135 L Potassium 3.9 Chloride 102 Carbon Dioxide 26 BUN 21 Creatinine 0.88 Glucose 108 H Calcium 8.9 Liver Function 08/09/17 Range/Units 06:14 Total Bilirubin 0.6 (0.3-1.0) mg/dL AST 62 H (13-39) Units/L ALT 42 (7-52) Units/L Alkaline Phosphatase 103 (34-104) Units/L Albumin 3.0 L (3.5-5.7) g/dL - ABG Interpretation ABG results: PT/INR, D-dimer PT 16.7 Seconds (9.4-12.1) H 08/09/17 06:14 - Impressions Impressions Echocardiogram 08/09/17 08:00 Impressions: Technically sub-optimal due to poor echocardiographic windows. LVEF 50-55%. Not all segments were well visualized, but overall LVEF appears normal. Grossly normal LV chamber size, wall thickness and function. Indeterminate diastolic function. Right ventricle was not well visualized. Grossly, it is normal in size and function. Atypical septal motion consistent with bundle branch block. Right ventricle was not well visualized. Grossly, it is normal in size and function. Mild pulmonary hypertension. No obvious significant valvular dysfunction. Findings: Study Quality * Technically sub-optimal due to poor echocardiographic windows. ECG Findings * Atrial fibrillation, bundle branch block. Left Ventricle * LVEF 50-55%. * Grossly normal LV chamber size, wall thickness and function. * Indeterminate diastolic function. * Atypical septal motion consistent with bundle branch block. Right Ventricle * Right ventricle was not well visualized. Grossly, it is normal in size and function. Left Atrium * Mild to moderately dilated left atrium. Right Atrium * Mild to moderately dilated right atrium. Interatrial Septum * Interatrial septum not well evaluated. Aortic Valve * Aortic valve not well visualized. * No aortic regurgitation. * No aortic stenosis. Mitral Valve * Normal mitral valve structure and function. * No mitral regurgitation. * No mitral stenosis. Tricuspid Valve * Normal tricuspid valve structure and function. * Trace tricuspid regurgitation. * Mild pulmonary hypertension. Pulmonic Valve * Pulmonic valve not well visualized. Aorta * Normally sized aortic root. Pericardium * The pericardium appears normal. IVC * The IVC is not well evaluated. Pulmonary Artery * Pulmonary artery not well visualized. Extremity Ultrasound 08/09/17 10:00 IMPRESSION: Edema within the soft tissues of the visualized left leg/ knee, compatible with cellulitis. There may be a small/ early abscess, which measures 1.3 cm. However, no drainable fluid collection is present at this time. D/ / Pablito Samayoa MD / Pablito Samayoa MD Interpreting Provider: Pablito Samayoa MD Knee CT 08/09/17 14:48 IMPRESSION: 1. Subcutaneous fat stranding and skin thickening in the left lower extremity most pronounced along the anterior aspect compatible with cellulitis. Soft tissue gas over the anterior aspect of the knee with adjacent induration. No well-defined drainable fluid collection. Findings may represent a gas forming organism or recent intervention. 2. Status post left knee arthroplasty and patellectomy. No definite joint effusion or intra-articular gas. 3. Chronic healed fracture of the distal femur. D/ / Paulino Diaz MD / Paulino Diaz MD Interpreting Provider: Paulino Diaz MD - Attending Attestation I conducted a face to face diagnostic evaluation of this patient and my medical decision-making was reviewed with the Resident Physician, Dr Miguel Angel Woo. I agree with the documented findings, disposition and treatment plan as described except to the extent set forth below: Patient with cellulitis of the lower extremity. On examination she has an incision of the anterior surface of the left knee. Status post left knee replacement in September of this year. We will consult orthopedics and obtain a CT of the lower extremity to evaluate for knee effusion and deep soft tissue infection. Kirt Simmons MD
[2017-08-09] MEDS: Clindamycin 900 MG/50 ML 900 MG/50 ML IV.SOLN IVPB SCH (09:23)
[2017-08-09] MEDS: 0.9 % Sodium Chloride 1,000 ML IVC SCH (09:27)
[2017-08-09] MEDS: Diltiazem CD (24hr) 240 MG CAPSULE PO SCH (09:33)
[2017-08-09] MEDS: *HR* Digoxin 0.25 MG TABLET PO SCH (09:33)
[2017-08-09] MEDS: Aspirin Enteric Coated 81 MG Tablet PO SCH (09:33)
[2017-08-09] MEDS: Apixaban 5 MG TABLET PO SCH ×2 (09:33→20:46)
[2017-08-09] MEDS: (Umeclidinium Bromide [Incruse Ellipta] 62.5 MCG) IH SCH (09:34)
[2017-08-09] MEDS: Budesonide/Formoterol 160/4.5 MDI IH SCH ×2 (10:50→21:58)
[2017-08-09] MEDS ORDERED: Vancomycin 2,000 MG in D5% in Water 250 ML IVPB SCH (11:00)
[2017-08-09] MEDS: Furosemide 40 MG TABLET PO SCH ×2 (13:39→20:46)
[2017-08-09] MEDS: Vancomycin 1,750 MG in D5% in Water 500 ML IVPB SCH (15:13)
--- NOTE | 2017-08-09 17:03 | Orthopedic Consult Note ---
Date of Encounter: 08/09/17 Time of Encounter: 17:30 Assessment and Plan (1) Status post revision of total replacement of left knee Current Visit: Yes Status: Chronic (2) Cellulitis of left knee Current Visit: Yes Status: Acute CT and case reviewed with Dr Castanon. The CT does not point to intraarticular connection regarding the infection and the air is likely from superficial opening of wound as described above with drainage. This being the case, patient to continue nonoperatively with medical management for infection and other health concerns per hospitalist and wound care teams. She is to keep her outpatient follow up with [facility] as scheduled. Thank you for this consultation. History of Present Illness Chief complaint: left leg cellulitis HPI: Ms. Lewis is a 66 year old female presenting to [place] for painful left leg which has since been diagnosed with cellulitis. She is well known to [facility] and this provider. She is status post left total knee revision replacement 10/12/[address] Castanon. She has been compliant with follow up with our office. She was last seen on 07/05/2017 by this provider and was noted to have wounds to E and she was referred in conjunction with her PCP Dr. Cole to wound clinic. Patient seen at bedside. She states that she just completed course of treatment with wound care appx 1 week ago for left leg ulcers. She states shortly thereafter she developed significant fatigue and "not feeling well". She states that her daughter finally convinced her to come to ED for evaluation. On exam she is resting comfortably reclined in bed. She is noted to have significant erythema to left lower leg. There are ABDs and Medipore tape applied to anterior knee. Bandage taken down which reveals appx 2x1 cm longitudinal draining wound. Serous drainage noted to mid scar of left knee. This area is macerated with erythematous borders and slough centrally. No calf tenderness. Neurovascularly intact. CT/CT knee LT w con IMPRESSION: 1. Subcutaneous fat stranding and skin thickening in the left lower extremity most pronounced along the anterior aspect compatible with cellulitis. Soft tissue gas over the anterior aspect of the knee with adjacent induration. No well-defined drainable fluid collection. Findings may represent a gas forming organism or recent intervention. 2. Status post left knee arthroplasty and patellectomy. No definite joint effusion or intra-articular gas. 3. Chronic healed fracture of the distal femur. D/ / Paulino Diaz MD / Paulino Diaz MD Interpreting Provider: Paulino Diaz MD and case reviewed with Dr Castanon. The CT does not point to intraarticular connection regarding the infection and the air is likely from superficial opening of wound as described above with drainage. This being the case, patient to continue nonoperatively with medical management for infection and other health concerns per hospitalist and wound care teams. She is to keep her outpatient follow up with [facility] as scheduled. Thank you for this consultation. Past Med Surg Social Fam HX - Past Medical History Medical history: atrial fibrillation, CHF, COPD, GERD, hyperlipidemia, hypertension, other Psychiatric history: depression - Past Surgical History Surgical History: knee replacement, other - Social History Smoking Status: Current every day smoker Packs per day: 1 PPD Smokeless Tobacco Status: No Alcohol use: none Drug use: none - Family History Mother Adopted: No Race: Family Member Ethnicity: Non- Living Status: Age at : 79 Cause of : Stroke Hx Family Cardiac Disorders: Yes (TIAs, CVA, HTN) Hx Family Respiratory Disorders: Yes Hx Family Cancer: Yes Hx Family GI Disorders: No Hx Family Endocrine Disorder: Yes Hx Family Neuromuscular Disorders: No Hx Family Neurologic Disorders: No Hx Family HEENT Disorders: No Hx Family Autoimmune Disorders: No Father Race: Family Member Ethnicity: Non- Living Status: Age at : 79 Cause of : Colon cancer Hx Family Cardiac Disorders: No Hx Family Respiratory Disorders: Yes Hx Family Cancer: Yes (Colon) Hx Family GI Disorders: No Hx Family Endocrine Disorder: Yes Hx Family Neuromuscular Disorders: No Hx Family Neurologic Disorders: No Hx Family HEENT Disorders: No Hx Family Autoimmune Disorders: No Brother Adopted: No Race: Family Member Ethnicity: Non- Living Status: Age at : 66 Cause of : Colon cancer Hx Family Cardiac Disorders: Yes Hx Family Respiratory Disorders: No Hx Family Cancer: Yes (Colon) Hx Family GI Disorders: No Hx Family Endocrine Disorder: Yes Hx Family Neuromuscular Disorders: No Hx Family Neurologic Disorders: Yes Hx Family HEENT Disorders: No Hx Family Autoimmune Disorders: No Sister Race: Family Member Ethnicity: Non- Living Status: Still Living Hx Family Cardiac Disorders: Yes (HTN, PAD) Hx Family Respiratory Disorders: Yes (COPD) Medications and Allergies Albuterol Sulfate [Ventolin Hfa] 2 puff IH Q6H PRN 03/13/16 [History] Apixaban [Eliquis] 5 mg PO Q12H 03/13/16 [History] Aspirin Enteric Coated [Aspirin EC] 81 mg PO DAILY 03/13/16 [History] BuPROPion [Wellbutrin] 100 mg PO BID 03/13/16 [History] Calcium Carbonate/Vitamin D3 [Oyster Shell Calcium-Vit D Tab] 500 mg PO BID [History] Citalopram [CeleXA] 60 mg PO DAILY 03/13/16 [History] Digoxin [Lanoxin] 0.25 mg PO DAILY 03/13/16 [History] Ferrous Sulfate 325 mg PO BIDWM 03/13/16 [History] Ipratropium/Albuterol Neb [Duoneb] 3 ml IH Q6HR PRN 03/13/16 [History] Umeclidinium [place] [Incruse Ellipta] 62.5 mcg IH DAILY 08/01/16 [History] Mv,Ca,Min/Iron Fum/FA/Lyco/Lut [Sentry Multivit & Mineral Cplt] 1 tab PO DAILY 10/12/16 [History] Omeprazole [PriLOSEC] 40 mg PO DAILY 10/12/16 [History] Oxygen 2 l NS AD PRN 10/12/16 [History] Diltiazem HCl [Diltiazem ER] 240 mg PO DAILY 05/03/17 [History] Furosemide [Lasix] 80 mg PO BID 05/03/17 [History] Budesonide/Formoterol 160/4.5 [Symbicort 160/4.5] 2 puff IH BIDR 06/19/17 [ History] Mupirocin [Bactroban Oint] 1 appl TP AD 08/08/17 [History] 3 Allergy/AdvReac Type Severity Reaction Status Date / Time lisinopril AdvReac Cough Verified 08/08/17 12:21 All Systems Reviewed: A 10-system review of systems was performed and is negative for pertinent findings except as documented above in the HPI. Physical Exam - Constitutional Vitals: Temp Pulse Resp BP Pulse Ox 97.6 F 89 16 106/73 96 08/09/17 14:30 08/09/17 14:30 08/09/17 14:30 08/09/17 14:30 08/09/17 14:30 Results - Labs Result Diagrams: 08/09/17 06:14 08/09/17 06:14 Labs: Abnormal lab results WBC 16.7 K/mcL (4.3-11.1) H 08/09/17 06:14 Hgb 10.9 g/dL (11.5-15.4) L 08/09/17 06:14 MCV 82.1 fL (83.0-100.0) L 08/09/17 06:14 MCH 24.7 pg (28.0-33.3) L 08/09/17 06:14 MCHC 30.0 g/dL (31.6-35.5) L 08/09/17 06:14 RDW 15.7 % (11.5-14.5) H 08/09/17 06:14 Neutrophils # 14.0 K/mcL (1.6-8.9) H 08/09/17 06:14 PT 16.7 Seconds (9.4-12.1) H 08/09/17 06:14 Sodium 135 mEq/L (136-145) L 08/09/17 06:14 Glucose 108 mg/dL (70-105) H 08/09/17 06:14 Direct Bilirubin 0.4 mg/dL (0.0-0.2) H 08/08/17 13:12 AST 62 Units/L (13-39) H 08/09/17 06:14 B-Natriuretic Peptide 216 pg/mL (Less than 100) H 08/09/17 06:14 Albumin 3.0 g/dL (3.5-5.7) L 08/09/17 06:14 Albumin/Globulin Ratio 0.9 (1.1-2.2) L 08/09/17 06:14 HDL Cholesterol 15 mg/dL (40-59) L 08/09/17 06:14 Cholesterol/HDL Ratio 5.9 (0-4.9) H 08/09/17 06:14 Urine Clarity Cloudy (Clear) A 08/08/17 14:19 Ur Specific [place] 1.028 (1.010-1.025) H 08/08/17 14:19 Urine Protein 30 mg/dL (Neg-Trace) H 08/08/17 14:19 Urine Ketones Trace mg/dL (Negative) H 08/08/17 14:19 Urine Blood Small (Negative) H 08/08/17 14:19 Urine Nitrite Positive (Negative) A 08/08/17 14:19 Urine Bilirubin Moderate (Negative) H 08/08/17 14:19 Urine Urobilinogen 4.0 mg/dL (Normal) H 08/08/17 14:19 Urine Microscopic WBC 5-15 per hpf (0-3) H 08/08/17 14:19 Ur Squamous Epith Cells Many per lpf (None-Few) H 08/08/17 14:19 H & H 08/09/17 Range/Units 06:14 Hgb 10.9 L (11.5-15.4) g/dL Hct 36.3 (35.3-44.9) % All other labs normal. Consult Discharge Plan - Plan Referrals: Edouard Cole MD [Primary Care Provider] -
--- NOTE | 2017-08-09 18:50 | Electrocardiograph Report ---
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
[2017-08-09] MEDS: Ondansetron 4 MG/2 ML VIAL IVP PRN (23:38)
[2017-08-10] MEDS: Vancomycin 1,750 MG in D5% in Water 500 ML IVPB SCH ×2 (01:44→15:54)
[2017-08-10] MEDS: Ipratropium/Albuterol Neb 3 ML IH SCH ×4 (03:44→22:22)
[2017-08-10] MEDS: 0.9 % Sodium Chloride 1,000 ML IVC SCH ×2 (04:04→15:55)
[2017-08-10] MEDS: *HR* HYDROcodone/Acet 5/325 mg TABLET PO PRN ×2 (05:54→15:54)
[2017-08-10 06:04] LABS: Basophils # 0.1 K/mcL (0.0-0.2); Basophils % 0.4 %; Eosinophils # 0.5 K/mcL (0.0-0.6); Eosinophils % 3.8 %; Hematocrit 34.1 % (35.3-44.9); Hemoglobin 10.4 g/dL (11.5-15.4); Immature Granulocytes % 0.6 % (0-4); Lymphocytes # 0.9 K/mcL (0.6-4.6); Mean Corpuscular HGB Conc 30.5 g/dL (31.6-35.5); Mean Corpuscular Hemoglobin 25.3 pg (28.0-33.3); Mean Platelet Volume 10.4 fL (9.4-12.4); Neutrophils # 10.4 K/mcL (1.6-8.9); Platelet Count 310 K/mcL (140-400); Red Blood Count 4.11 M/mcL (3.82-4.97); Red Cell Distribution Width 15.9 % (11.5-14.5); Segmented Neutrophils % 80.2 %
[2017-08-10 06:21] LABS: Alanine Aminotransferase 61 Units/L (7-52); Albumin 2.9 g/dL (3.5-5.7); Albumin/Globulin Ratio 0.9 (1.1-2.2); Alkaline Phosphatase 99 Units/L (34-104); Aspartate Amino Transferase 67 Units/L (13-39); BUN/Creatinine Ratio 24 (6-26); Bilirubin,Total 0.4 mg/dL (0.3-1.0); Blood Urea Nitrogen 18 mg/dL (8-23); Calcium 8.4 mg/dL (8.6-10.3); Carbon Dioxide 26 mEq/L (23-29); Chloride 101 mEq/L (98-107); Globulin 3.3 g/dL (2.4-3.5); Glucose 147 mg/dL (70-105); Osmolality,Calculated 289 (280-300); Potassium 3.3 mEq/L (3.5-5.1); Sodium 137 mEq/L (136-145); Total Protein 6.2 g/dL (6.4-8.9); eGFR For African Americans > 60 (> 60); eGFR For Non-African Americans > 60 (> 60)
--- NOTE | 2017-08-10 08:34 | Internal Med Progress Note ---
<Miguel Angel Woo - Last Filed: 08/10/17 13:11> Date of Encounter: 08/10/17 Time of Encounter: 08:34 - Assessment and plan (1) Bacteremia due to Gram-negative bacteria Current Visit: Yes Status: Acute Assessment and plan: On admission, patient had sepsis criteria. - WBC of 22.1, HR >90, and cellulitis infection of the LLE. Pt. given 1L bolus of 0.9 NS in ED. WBC trending down 16.7 > 12.9 HR in 80s Continue IVF Blood culture showing Gram Negative Rods x1, second culture neg but Wound culture showing staph aureus. Considering contaminate but less likely with GN. At this point, we are suspecting bacteremia and will continue therapy with adding Zosyn for GN coverage. Awaiting final culture results (2) Cellulitis of left lower extremity Current Visit: Yes Status: Acute Assessment and plan: Patient has hx of cellulitis of the LEs in the past LLE is edematous and erythematous with purulent drainage - Dressing in place this morning Pt. reports hx of MRSA, but nasal screen on 10/07/16 and recent cultures negative for MRSA US of LLE: consistent with cellulitis without drainable fluid collection Ortho consulted d/t h/o left TKA in September 2016 - Ordered CT LLE: Consistent with cellulitis without fluid collection, no intra-articular involvement, subcutaneous air likely from open wound WBC trending down 22.1 -> 16.7 > 12.9 VSS Blood cultures showing Gram Negative Rods x1, second culture neg Wound culture showing staph aureus Plan: Wound Care IV Vancomycin - day 2 IV Zosyn IVF Discharge planning: PT and OT recommend ECF placement on discharge (3) Sepsis Current Visit: No Status: Acute Assessment and plan: See above Qualifiers: Sepsis type: sepsis due to unspecified organism Qualified Code(s): A41.9 - Sepsis, unspecified organism (4) CHF (congestive heart failure) Current Visit: Yes Status: Chronic Assessment and plan: Unaware of baseline LLE edema, 2+ pitting edema today CXR showing mild vascular congestion Takes 80mg Lasix BID at home BNP 216 ECHO showed EF 50-55%, sub-optimal exam with indeterminate diastolic function. Plan: Lasix 80mg BID ASA Statin Recommend further optimization as outpatient Qualifiers: Congestive heart failure type: unspecified congestive heart failure type Congestive heart failure chronicity: chronic Qualified Code(s): I50.9 - Heart failure, unspecified (5) COPD (chronic obstructive pulmonary disease) Current Visit: No Status: Chronic Assessment and plan: Appears to be improving since admission per patient Will continue O2 with duonebs and tessalon for now Qualifiers: COPD type: unspecified COPD Qualified Code(s): J44.9 - Chronic obstructive pulmonary disease, unspecified (6) GERD (gastroesophageal reflux disease) Current Visit: Yes Status: Chronic Assessment and plan: Well controlled PPI therapy PRN Zofran Qualifiers: Esophagitis presence: esophagitis presence not specified Qualified Code(s) : K21.9 - Gastro-esophageal reflux disease without esophagitis (7) HTN (hypertension) Current Visit: Yes Status: Chronic Assessment and plan: Only medications are diltiazem and digoxin. Will continue unchanged. BP stable this morning Qualifiers: Hypertension type: essential hypertension Qualified Code(s): I10 - Essential (primary) hypertension (8) SOB (shortness of breath) Current Visit: Yes Status: Acute Assessment and plan: Improved from yesterday Occasional wheezing heard on examination today Duonebs O2 Tessalon (9) HLD (hyperlipidemia) Current Visit: Yes Status: Chronic Assessment and plan: Lipid panel checked HDL low at 15 Will continue statin therapy Qualifiers: Hyperlipidemia type: pure hypercholesterolemia Qualified Code(s): E78.00 - Pure hypercholesterolemia, unspecified; E78.0 - Pure hypercholesterolemia (10) Generalized weakness Current Visit: Yes Status: Acute Assessment and plan: Continue falls precautions Patient states that she can ambulate but is difficult PT and OT recommend ECF placement for further rehabilitation (11) Chronic atrial fibrillation Current Visit: Yes Status: Chronic Assessment and plan: ECHO yesterday shoing EF 50-55%, sub-optimal exam with indeterminate diastolic function Cardiac monitoring ASA Elliquis Digoxin (level checked and appropriate) (12) Abdominal pain Current Visit: Yes Status: Acute Assessment and plan: Firm, distended with generalized pain throughout exam today No BM noted No flatuance Denies any n/v Tolerating diet Added DAVID Colace KUB ordered Qualifiers: Abdominal location: generalized Qualified Code(s): R10.84 - Generalized abdominal pain (13) Sleep apnea Current Visit: Yes Status: Chronic Assessment and plan: No history of CPAP use Will continue to supplement O2 as needed Qualifiers: Sleep apnea type: unspecified type Qualified Code(s): G47.30 - Sleep apnea , unspecified (14) Morbid obesity Current Visit: No Status: Chronic Assessment and plan: BMI 50.4 (15) DVT prophylaxis Current Visit: Yes Status: Acute Assessment and plan: Heparin 5000 units q8hrs - Subjective Interval history: Patient is resting comfortably in the bed this morning She reports "firm and bloated belly". Generalized abdominal pain. No n/v. No BM for several days States that she again feels better today Nursing has no events overnight Denies any CP, fevers, SOB, cough or palpitations - Constitutional Vitals: Temp Pulse Resp BP Pulse Ox 97.8 F 98 18 111/80 100 08/10/17 07:14 08/10/17 07:14 08/10/17 07:14 08/10/17 07:14 08/10/17 07:14 General appearance: Present: cooperative, mild distress, A&O X 3, morbidly obese , pleasant, answers questions appropriately Internal Medicine: Result - Labs CBC & Chem 7: 08/10/17 05:30 08/10/17 05:30 Labs: Short CBC 08/10/17 Range/Units 05:30 WBC 12.9 H (4.3-11.1) K/mcL Hgb 10.4 L (11.5-15.4) g/dL Hct 34.1 L (35.3-44.9) % Plt Count 310 (140-400) K/mcL Neutrophils # 10.4 H (1.6-8.9) K/mcL BMP 08/10/17 05:30 Sodium 137 Potassium 3.3 L Chloride 101 Carbon Dioxide 26 BUN 18 Creatinine 0.76 Glucose 147 H Calcium 8.4 L Liver Function 08/10/17 Range/Units 05:30 Total Bilirubin 0.4 (0.3-1.0) mg/dL AST 67 H (13-39) Units/L ALT 61 H (7-52) Units/L Alkaline Phosphatase 99 (34-104) Units/L Albumin 2.9 L (3.5-5.7) g/dL - ABG Interpretation ABG results: PT/INR, D-dimer PT 16.7 Seconds (9.4-12.1) H 08/09/17 06:14 - Impressions Impressions Echocardiogram 08/09/17 08:00 Impressions: Technically sub-optimal due to poor echocardiographic windows. LVEF 50-55%. Not all segments were well visualized, but overall LVEF appears normal. Grossly normal LV chamber size, wall thickness and function. Indeterminate diastolic function. Right ventricle was not well visualized. Grossly, it is normal in size and function. Atypical septal motion consistent with bundle branch block. Right ventricle was not well visualized. Grossly, it is normal in size and function. Mild pulmonary hypertension. No obvious significant valvular dysfunction. Findings: Study Quality * Technically sub-optimal due to poor echocardiographic windows. ECG Findings * Atrial fibrillation, bundle branch block. Left Ventricle * LVEF 50-55%. * Grossly normal LV chamber size, wall thickness and function. * Indeterminate diastolic function. * Atypical septal motion consistent with bundle branch block. Right Ventricle * Right ventricle was not well visualized. Grossly, it is normal in size and function. Left Atrium * Mild to moderately dilated left atrium. Right Atrium * Mild to moderately dilated right atrium. Interatrial Septum * Interatrial septum not well evaluated. Aortic Valve * Aortic valve not well visualized. * No aortic regurgitation. * No aortic stenosis. Mitral Valve * Normal mitral valve structure and function. * No mitral regurgitation. * No mitral stenosis. Tricuspid Valve * Normal tricuspid valve structure and function. * Trace tricuspid regurgitation. * Mild pulmonary hypertension. Pulmonic Valve * Pulmonic valve not well visualized. Aorta * Normally sized aortic root. Pericardium * The pericardium appears normal. IVC * The IVC is not well evaluated. Pulmonary Artery * Pulmonary artery not well visualized. Extremity Ultrasound 08/09/17 10:00 IMPRESSION: Edema within the soft tissues of the visualized left leg/ knee, compatible with cellulitis. There may be a small/ early abscess, which measures 1.3 cm. However, no drainable fluid collection is present at this time. D/ / Pablito Samayoa MD / Pablito Samayoa MD Interpreting Provider: Pablito Samayoa MD Knee CT 08/09/17 14:48 IMPRESSION: 1. Subcutaneous fat stranding and skin thickening in the left lower extremity most pronounced along the anterior aspect compatible with cellulitis. Soft tissue gas over the anterior aspect of the knee with adjacent induration. No well-defined drainable fluid collection. Findings may represent a gas forming organism or recent intervention. 2. Status post left knee arthroplasty and patellectomy. No definite joint effusion or intra-articular gas. 3. Chronic healed fracture of the distal femur. D/ / Paulino Diaz MD / Paulino Diaz MD Interpreting Provider: Paulino Diaz MD Consult Discharge Plan - Plan Referrals: Edouard Cole MD [Primary Care Provider] - <Kirt Simmons - Last Filed: 08/11/17 07:46> Date of Encounter: 08/10/17 - Constitutional Vitals: Temp Pulse Resp BP Pulse Ox 98.2 F 95 18 127/87 98 08/11/17 07:00 08/11/17 07:00 08/11/17 07:00 08/11/17 07:00 08/11/17 07:00 Internal Medicine: Result - Labs CBC & Chem 7: 08/11/17 01:51 08/11/17 01:51 Labs: Short CBC 08/11/17 Range/Units 01:51 WBC 11.4 H (4.3-11.1) K/mcL Hgb 10.3 L (11.5-15.4) g/dL Hct 34.6 L (35.3-44.9) % Plt Count 378 (140-400) K/mcL Neutrophils # 8.7 (1.6-8.9) K/mcL BMP 08/11/17 01:51 Sodium 137 Potassium 3.1 L Chloride 101 Carbon Dioxide 30 H BUN 13 Creatinine 0.70 Glucose 110 H Calcium 8.7 Liver Function 08/11/17 Range/Units 01:51 Total Bilirubin 0.5 (0.3-1.0) mg/dL AST 33 (13-39) Units/L ALT 49 (7-52) Units/L Alkaline Phosphatase 88 (34-104) Units/L Albumin 2.8 L (3.5-5.7) g/dL - ABG Interpretation ABG results: PT/INR, D-dimer PT 16.7 Seconds (9.4-12.1) H 08/09/17 06:14 - Impressions Impressions KUB X-Ray 08/10/17 09:41 IMPRESSION: Colonic ileus pattern. There is transition at the rectum. Recto sigmoidal obstruction is a differential consideration. D/ / Demetrius Mittal MD / Demetrius Mittal MD Interpreting Provider: Demetrius Mittal MD Abdomen/Pelvis CT 08/10/17 18:46 IMPRESSION: Colonic ileus again suspected. Minimal change in configuration compared to prior. D/ / Quentin Winston MD / Quentin Winston MD Interpreting Provider: Quentin Winston MD - Attending Attestation I conducted a face to face diagnostic evaluation of this patient and my medical decision-making was reviewed with the Resident Physician, Dr Miguel Angel Woo. I agree with the documented findings, disposition and treatment plan as described except to the extent set forth below: On exam the patient is no acute distress awake alert oriented. Heart is regular. No murmurs. Lower extremity exam reveals redness of the left lower leg and an open wound on the anterior surface of the left knee. Wound cultures positive for MRSA. Blood culture positive for gram-negative rods. Plan: Continue with Zosyn and vancomycin. Appreciate orthopedics recommendation. She has at high risk for morbidity, mortality and complications due to bacteremia, sepsis and treatment with IV vancomycin which requires close monitoring for toxicity. Kirt Simmons MD
[2017-08-10] MEDS: (Umeclidinium Bromide [Incruse Ellipta] 62.5 MCG) IH SCH (08:45)
[2017-08-10] MEDS: Furosemide 40 MG TABLET PO SCH ×2 (08:46→21:26)
[2017-08-10] MEDS: Diltiazem CD (24hr) 240 MG CAPSULE PO SCH (08:46)
[2017-08-10] MEDS: Multivit/Ca/Min/Fe/FA 1 TAB TABLET PO SCH (08:46)
[2017-08-10] MEDS: Cholecalciferol (D-3) 1,000 UNIT TABLET PO SCH (08:46)
[2017-08-10] MEDS: Apixaban 5 MG TABLET PO SCH ×2 (08:46→21:27)
[2017-08-10] MEDS: *HR* Digoxin 0.25 MG TABLET PO SCH (08:46)
[2017-08-10] MEDS: Aspirin Enteric Coated 81 MG Tablet PO SCH (08:46)
[2017-08-10] MEDS: Budesonide/Formoterol 160/4.5 MDI IH SCH ×2 (12:16→22:22)
[2017-08-10] MEDS: Piperacillin/Tazobactam 3.375 GM/200 ML BAG IVPB SCH ×2 (14:22→21:28)
[2017-08-10] MEDS ORDERED: Piperacillin/Tazobactam 3.375 GM in D5% in Water (Mini-Bag+) 100 ML IVPB SCH (16:00)
[2017-08-11 02:25] LABS: Basophils # 0.1 K/mcL (0.0-0.2); Basophils % 0.4 %; Eosinophils # 0.6 K/mcL (0.0-0.6); Hematocrit 34.6 % (35.3-44.9); Hemoglobin 10.3 g/dL (11.5-15.4); Lymphocytes # 1.1 K/mcL (0.6-4.6); Lymphocytes % 9.7 %; Mean Corpuscular HGB Conc 29.8 g/dL (31.6-35.5); Mean Corpuscular Hemoglobin 24.6 pg (28.0-33.3); Mean Corpuscular Volume 82.6 fL (83.0-100.0); Mean Platelet Volume 10.3 fL (9.4-12.4); Monocytes # 0.9 K/mcL (0.0-1.3); Monocytes % 7.8 %; Neutrophils # 8.7 K/mcL (1.6-8.9); Platelet Count 378 K/mcL (140-400); Red Blood Count 4.19 M/mcL (3.82-4.97); Red Cell Distribution Width 15.9 % (11.5-14.5); Segmented Neutrophils % 76.1 %
[2017-08-11 02:42] LABS: Alanine Aminotransferase 49 Units/L (7-52); Albumin 2.8 g/dL (3.5-5.7); Albumin/Globulin Ratio 0.9 (1.1-2.2); Alkaline Phosphatase 88 Units/L (34-104); Aspartate Amino Transferase 33 Units/L (13-39); BUN/Creatinine Ratio 19 (6-26); Bilirubin,Total 0.5 mg/dL (0.3-1.0); Blood Urea Nitrogen 13 mg/dL (8-23); Calcium 8.7 mg/dL (8.6-10.3); Carbon Dioxide 30 mEq/L (23-29); Chloride 101 mEq/L (98-107); Globulin 3.1 g/dL (2.4-3.5); Glucose 110 mg/dL (70-105); Osmolality,Calculated 285 (280-300); Potassium 3.1 mEq/L (3.5-5.1); Sodium 137 mEq/L (136-145); Total Protein 5.9 g/dL (6.4-8.9); eGFR For African Americans > 60 (> 60); eGFR For Non-African Americans > 60 (> 60)
[2017-08-11] MEDS: Ipratropium/Albuterol Neb 3 ML IH SCH ×4 (04:08→21:08)
[2017-08-11] MEDS: Piperacillin/Tazobactam 3.375 GM/200 ML BAG IVPB SCH ×3 (06:34→20:47)
--- NOTE | 2017-08-11 08:20 | Orthopedics Progress Note ---
Date of Encounter: 08/11/17 Time of Encounter: 08:19 Subjective Interval history: Patient seen this morning minimal pain in the knee with motion patient with active purulent drainage from subcutaneous tissue. CT scan shows no intra- articular involvement. Recommendation is to consult wound care consider wound VAC continue IV antibiotics were treated for staph aureus as well as gram- negative rods. Objective Vital signs: Vital Signs Temp Pulse Resp BP Pulse Ox 08/11/17 07:00 98.2 F 95 18 127/87 98 08/11/17 04:08 16 96 08/11/17 00:06 98.2 F 99 18 123/72 93 08/10/17 22:23 18 97 08/10/17 19:53 98.1 F 101 17 124/84 98 08/10/17 16:27 18 97 08/10/17 15:56 97.6 F 76 18 111/67 94 08/10/17 11:08 98.1 F 100 18 115/76 97 Intake and Output 08/10/17 08/11/17 08/11/17 23:59 07:59 15:59 Intake Total 200 / 200 200 / 200 Balance 200 / 200 200 / 200 Intake: IV Fluids 200 / 200 200 / 200 Zosyn Premix 3.375 GM/200 ML 3. 200 / 200 200 / 200 375 gm In 200 ml @ 50 mls/hr IVPB Q8H [facility] Rx#:[id number] Other: Stool Size Smear # Voids 1 # Urine Diapers 2 # Bowel Movements 1 - Labs CBC & BMP: 08/11/17 01:51 08/11/17 01:51 Labs: Abnormal lab results WBC 11.4 K/mcL (4.3-11.1) H 08/11/17 01:51 Hgb 10.3 g/dL (11.5-15.4) L 08/11/17 01:51 Hct 34.6 % (35.3-44.9) L 08/11/17 01:51 MCV 82.6 fL (83.0-100.0) L 08/11/17 01:51 MCH 24.6 pg (28.0-33.3) L 08/11/17 01:51 MCHC 29.8 g/dL (31.6-35.5) L 08/11/17 01:51 RDW 15.9 % (11.5-14.5) H 08/11/17 01:51 PT 16.7 Seconds (9.4-12.1) H 08/09/17 06:14 Potassium 3.1 mEq/L (3.5-5.1) L 08/11/17 01:51 Carbon Dioxide 30 mEq/L (23-29) H 08/11/17 01:51 Glucose 110 mg/dL (70-105) H 08/11/17 01:51 Direct Bilirubin 0.4 mg/dL (0.0-0.2) H 08/08/17 13:12 B-Natriuretic Peptide 216 pg/mL (Less than 100) H 08/09/17 06:14 Serum Total Protein 5.9 g/dL (6.4-8.9) L 08/11/17 01:51 Albumin 2.8 g/dL (3.5-5.7) L 08/11/17 01:51 Albumin/Globulin Ratio 0.9 (1.1-2.2) L 08/11/17 01:51 HDL Cholesterol 15 mg/dL (40-59) L 08/09/17 06:14 Cholesterol/HDL Ratio 5.9 (0-4.9) H 08/09/17 06:14 Urine Clarity Cloudy (Clear) A 08/08/17 14:19 Ur Specific [place] 1.028 (1.010-1.025) H 08/08/17 14:19 Urine Protein 30 mg/dL (Neg-Trace) H 08/08/17 14:19 Urine Ketones Trace mg/dL (Negative) H 08/08/17 14:19 Urine Blood Small (Negative) H 08/08/17 14:19 Urine Nitrite Positive (Negative) A 08/08/17 14:19 Urine Bilirubin Moderate (Negative) H 08/08/17 14:19 Urine Urobilinogen 4.0 mg/dL (Normal) H 08/08/17 14:19 Urine Microscopic WBC 5-15 per hpf (0-3) H 08/08/17 14:19 Ur Squamous Epith Cells Many per lpf (None-Few) H 08/08/17 14:19 Vancomycin Trough 24.4 mcg/mL (10-20) H* 08/11/17 01:51 Consult Discharge Plan - Plan Referrals: Edouard Cole MD [Primary Care Provider] -
[2017-08-11] MEDS: Multivit/Ca/Min/Fe/FA 1 TAB TABLET PO SCH (09:20)
[2017-08-11] MEDS: Furosemide 40 MG TABLET PO SCH ×2 (09:20→20:52)
[2017-08-11] MEDS: Diltiazem CD (24hr) 240 MG CAPSULE PO SCH (09:20)
[2017-08-11] MEDS: *HR* Digoxin 0.25 MG TABLET PO SCH (09:20)
[2017-08-11] MEDS: *HR* HYDROcodone/Acet 5/325 mg TABLET PO PRN (09:20)
[2017-08-11] MEDS: Aspirin Enteric Coated 81 MG Tablet PO SCH (09:21)
[2017-08-11] MEDS: Cholecalciferol (D-3) 1,000 UNIT TABLET PO SCH (09:21)
[2017-08-11] MEDS: Apixaban 5 MG TABLET PO SCH ×2 (09:21→20:52)
[2017-08-11] MEDS: Potassium Citrate 10 MEQ TABLET.ER PO SCH ×3 (09:21→20:55)
[2017-08-11] MEDS: (Umeclidinium Bromide [Incruse Ellipta] 62.5 MCG) IH SCH (09:24)
[2017-08-11] MEDS: Budesonide/Formoterol 160/4.5 MDI IH SCH ×2 (09:52→21:08)
--- NOTE | 2017-08-11 10:14 | Internal Med Progress Note ---
Addendum entered and electronically signed by Miguel Angel Woo DO 08/11/17 15:26: Blood culture final showing Acinetobacter baumanni Wound culture final showing MRSA Currently on vancomycin and Zosyn, which is appropriate for susceptibility on each culture Repeat blood culture pending. Patient was approved for transfer to [facility] Powerglide was successfully placed today Wound VAC orders faxed today Plan is to discharge tomorrow to ECF on IV antibiotics Original Note: <Miguel Angel Woo - Last Filed: 08/11/17 11:08> Date of Encounter: 08/11/17 Time of Encounter: 10:11 - Assessment and plan (1) Bacteremia due to Gram-negative bacteria Current Visit: Yes Status: Acute Assessment and plan: WBC trending down 11.4 VSS Blood culture showing Gram Negative Rods x1, second culture neg but Wound culture showing staph aureus. Considering contaminate but less likely with GN. Vanc for MRSA coverage We are suspecting bacteremia and will continue therapy with Zosyn for GN coverage. Awaiting final culture results Repeat culture drawn to confirm second positive BCx - Will determine PICC vs powerglide d/t requirement of IV abx on discharge (2) Cellulitis of left lower extremity Current Visit: Yes Status: Acute Assessment and plan: Patient has hx of cellulitis of the LEs in the past LLE is edematous and erythematous with purulent drainage - Dressing in place this morning Pt. reports hx of MRSA, but nasal screen on 10/07/16 and recent cultures negative for MRSA US of LLE: consistent with cellulitis without drainable fluid collection Ortho consulted d/t h/o left TKA in September 2016 - Ordered CT LLE: Consistent with cellulitis without fluid collection, no intra-articular involvement, subcutaneous air likely from open wound WBC trending down 11.4 VSS Blood cultures showing Gram Negative Rods x1, second culture neg Wound culture showing staph aureus Plan: Wound Care - possible wound vac prior to d/c IV Vancomycin - day 3 IV Zosyn - day 2 IVF Ordered repeat blood culture to determine if there is another positive BC for possible PICC vs powerglide d/t patient requiring IV abx on discharge Discharge planning: PT and OT recommend ECF placement on discharge (3) Sepsis Current Visit: No Status: Acute Assessment and plan: See above Qualifiers: Sepsis type: sepsis due to unspecified organism Qualified Code(s): A41.9 - Sepsis, unspecified organism (4) Ileus Current Visit: No Status: Acute Assessment and plan: KUB and CT abd/pel showing colonic ileus Firm, distended with generalized pain throughout exam today Large BM this morning Denies any n/v NPO Patient Colace and Miralax Added Simethicone DAVID D/c opiod regimen - added Toradol Plan for conservative medical management and monitor closely (5) CHF (congestive heart failure) Current Visit: Yes Status: Chronic Assessment and plan: Unaware of baseline LLE edema, 2+ pitting edema today CXR showing mild vascular congestion Takes 80mg Lasix BID at home BNP 216 ECHO showed EF 50-55%, sub-optimal exam with indeterminate diastolic function. Plan: Lasix 80mg BID ASA Statin Recommend further optimization as outpatient Qualifiers: Congestive heart failure type: unspecified congestive heart failure type Congestive heart failure chronicity: chronic Qualified Code(s): I50.9 - Heart failure, unspecified (6) COPD (chronic obstructive pulmonary disease) Current Visit: No Status: Chronic Assessment and plan: Appears to be improving since admission per patient Will continue O2 with duonebs and tessalon for now Qualifiers: COPD type: unspecified COPD Qualified Code(s): J44.9 - Chronic obstructive pulmonary disease, unspecified (7) GERD (gastroesophageal reflux disease) Current Visit: Yes Status: Chronic Assessment and plan: Well controlled PPI therapy PRN Zofran Qualifiers: Esophagitis presence: esophagitis presence not specified Qualified Code(s) : K21.9 - Gastro-esophageal reflux disease without esophagitis (8) HTN (hypertension) Current Visit: Yes Status: Chronic Assessment and plan: Only medications are diltiazem and digoxin. Will continue unchanged. BP stable this morning Qualifiers: Hypertension type: essential hypertension Qualified Code(s): I10 - Essential (primary) hypertension (9) SOB (shortness of breath) Current Visit: Yes Status: Acute Assessment and plan: Improving Duonebs O2 Tessalon (10) HLD (hyperlipidemia) Current Visit: Yes Status: Chronic Assessment and plan: Lipid panel checked HDL low at 15 Will continue statin therapy Qualifiers: Hyperlipidemia type: pure hypercholesterolemia Qualified Code(s): E78.00 - Pure hypercholesterolemia, unspecified; E78.0 - Pure hypercholesterolemia (11) Generalized weakness Current Visit: Yes Status: Acute Assessment and plan: Continue falls precautions Patient states that she can ambulate but is difficult PT and OT recommend ECF placement for further rehabilitation (12) Chronic atrial fibrillation Current Visit: Yes Status: Chronic Assessment and plan: ECHO yesterday shoing EF 50-55%, sub-optimal exam with indeterminate diastolic function Cardiac monitoring ASA Sonya Digoxin (level checked and appropriate) (13) Sleep apnea Current Visit: Yes Status: Chronic Assessment and plan: No history of CPAP use Will continue to supplement O2 as needed Qualifiers: Sleep apnea type: unspecified type Qualified Code(s): G47.30 - Sleep apnea , unspecified (14) Morbid obesity Current Visit: No Status: Chronic Assessment and plan: BMI 50.4 (15) DVT prophylaxis Current Visit: Yes Status: Acute Assessment and plan: Heparin 5000 units q8hrs - Subjective Interval history: Patient is resting comfortably in the bed this morning She reports "firm and bloated belly". Generalized abdominal pain. No n/v. No BM for several days States that she again feels better today Nursing has no events overnight Denies any CP, fevers, SOB, cough or palpitations - Constitutional Vitals: Temp Pulse Resp BP Pulse Ox 98.2 F 95 18 127/87 98 08/11/17 07:00 08/11/17 07:00 08/11/17 09:53 08/11/17 09:53 08/11/17 09:53 General appearance: Present: cooperative, mild distress, A&O X 3, morbidly obese , pleasant, answers questions appropriately Internal Medicine: Result - Labs CBC & Chem 7: 08/11/17 01:51 08/11/17 01:51 Labs: Short CBC 08/11/17 Range/Units 01:51 WBC 11.4 H (4.3-11.1) K/mcL Hgb 10.3 L (11.5-15.4) g/dL Hct 34.6 L (35.3-44.9) % Plt Count 378 (140-400) K/mcL Neutrophils # 8.7 (1.6-8.9) K/mcL BMP 08/11/17 01:51 Sodium 137 Potassium 3.1 L Chloride 101 Carbon Dioxide 30 H BUN 13 Creatinine 0.70 Glucose 110 H Calcium 8.7 Liver Function 08/11/17 Range/Units 01:51 Total Bilirubin 0.5 (0.3-1.0) mg/dL AST 33 (13-39) Units/L ALT 49 (7-52) Units/L Alkaline Phosphatase 88 (34-104) Units/L Albumin 2.8 L (3.5-5.7) g/dL - ABG Interpretation ABG results: PT/INR, D-dimer PT 16.7 Seconds (9.4-12.1) H 08/09/17 06:14 - Impressions Impressions KUB X-Ray 08/10/17 09:41 IMPRESSION: Colonic ileus pattern. There is transition at the rectum. Recto sigmoidal obstruction is a differential consideration. D/ / Demetrius Mittal MD / Demetrius Mittal MD Interpreting Provider: Demetrius Mittal MD Abdomen/Pelvis CT 08/10/17 18:46 IMPRESSION: Colonic ileus again suspected. Minimal change in configuration compared to prior. D/ / Quentin Winston MD / Quentin Winston MD Interpreting Provider: Quentin Winston MD Consult Discharge Plan - Plan Referrals: Edouard Cole MD [Primary Care Provider] - Prescriptions: Cefepime HCl/Dextrose, Iso-Osm [Cefepime 2 gm Injection] 2 gm IV Q12H #12 mls Sulfamethoxazole/Trimeth DS [Bactrim DS] 2 each PO BID #40 tablet Vacuum - Wound [WOUND VAC] 1 each .ROUTE AD #1 each <Kirt Simmons - Last Filed: 08/11/17 18:38> Date of Encounter: 08/11/17 - Constitutional Vitals: Temp Pulse Resp BP Pulse Ox 98.7 F 91 16 135/83 98 08/11/17 14:55 08/11/17 14:55 08/11/17 16:42 08/11/17 14:55 08/11/17 16:42 Internal Medicine: Result - Labs CBC & Chem 7: 08/11/17 01:51 08/11/17 01:51 Labs: Short CBC 08/11/17 Range/Units 01:51 WBC 11.4 H (4.3-11.1) K/mcL Hgb 10.3 L (11.5-15.4) g/dL Hct 34.6 L (35.3-44.9) % Plt Count 378 (140-400) K/mcL Neutrophils # 8.7 (1.6-8.9) K/mcL BMP 08/11/17 01:51 Sodium 137 Potassium 3.1 L Chloride 101 Carbon Dioxide 30 H BUN 13 Creatinine 0.70 Glucose 110 H Calcium 8.7 Liver Function 08/11/17 Range/Units 01:51 Total Bilirubin 0.5 (0.3-1.0) mg/dL AST 33 (13-39) Units/L ALT 49 (7-52) Units/L Alkaline Phosphatase 88 (34-104) Units/L Albumin 2.8 L (3.5-5.7) g/dL - ABG Interpretation ABG results: PT/INR, D-dimer PT 16.7 Seconds (9.4-12.1) H 08/09/17 06:14 - Impressions Impressions Abdomen/Pelvis CT 08/10/17 18:46 IMPRESSION: Colonic ileus again suspected. Minimal change in configuration compared to prior. D/ / Quentin Winston MD / Quetnin Winston MD Interpreting Provider: Quentin Winston MD - Attending Attestation I conducted a face to face diagnostic evaluation of this patient and my medical decision-making was reviewed with the Resident Physician, Dr Nathanael Curiel. I agree with the documented findings, disposition and treatment plan as described except to the extent set forth below: Left lower extremity cellulitis improving. We will continue with Zosyn for Acinetobacter bacteremia. Transition to cefepime upon discharge. Continue with Bactrim for MRSA cellulitis. Follow-up repeat blood culture drawn today. Kirt Simmons MD
[2017-08-11] MEDS: Simethicone 80 MG TAB.CHEW PO SCH ×3 (12:36→20:52)
[2017-08-11] MEDS: 0.9 % Sodium Chloride 1,000 ML IVC SCH ×2 (12:37)
[2017-08-11] MEDS: Ketorolac 30 MG/ML VIAL IVP PRN (12:38)
[2017-08-11] MEDS: Ondansetron 4 MG/2 ML VIAL IVP PRN (15:11)
[2017-08-11] MEDS: Vancomycin 1,250 MG in D5% in Water 250 ML IVPB SCH (20:49)
[2017-08-12 04:29] LABS: Basophils % 0.3 %; Eosinophils # 0.6 K/mcL (0.0-0.6); Hematocrit 33.6 % (35.3-44.9); Hemoglobin 9.9 g/dL (11.5-15.4); Immature Granulocytes % 1.4 % (0-4); Lymphocytes # 0.9 K/mcL (0.6-4.6); Lymphocytes % 8.6 %; Mean Corpuscular HGB Conc 29.5 g/dL (31.6-35.5); Mean Corpuscular Hemoglobin 24.6 pg (28.0-33.3); Mean Corpuscular Volume 83.4 fL (83.0-100.0); Mean Platelet Volume 9.7 fL (9.4-12.4); Monocytes # 0.7 K/mcL (0.0-1.3); Monocytes % 6.7 %; Neutrophils # 7.6 K/mcL (1.6-8.9); Platelet Count 410 K/mcL (140-400); Red Blood Count 4.03 M/mcL (3.82-4.97); Red Cell Distribution Width 15.8 % (11.5-14.5)
[2017-08-12] MEDS: Ipratropium/Albuterol Neb 3 ML IH SCH ×3 (04:32→16:27)
[2017-08-12 04:43] LABS: Alanine Aminotransferase 32 Units/L (7-52); Albumin 2.6 g/dL (3.5-5.7); Albumin/Globulin Ratio 0.8 (1.1-2.2); Alkaline Phosphatase 80 Units/L (34-104); Aspartate Amino Transferase 16 Units/L (13-39); BUN/Creatinine Ratio 16 (6-26); Bilirubin,Total 0.4 mg/dL (0.3-1.0); Blood Urea Nitrogen 9 mg/dL (8-23); Calcium 8.6 mg/dL (8.6-10.3); Carbon Dioxide 30 mEq/L (23-29); Chloride 104 mEq/L (98-107); Globulin 3.1 g/dL (2.4-3.5); Glucose 94 mg/dL (70-105); Osmolality,Calculated 286 (280-300); Potassium 3.2 mEq/L (3.5-5.1); Sodium 139 mEq/L (136-145); Total Protein 5.7 g/dL (6.4-8.9); eGFR For African Americans > 60 (> 60); eGFR For Non-African Americans > 60 (> 60)
[2017-08-12] MEDS: Piperacillin/Tazobactam 3.375 GM/200 ML BAG IVPB SCH ×2 (04:46→14:56)
[2017-08-12] MEDS: Ketorolac 30 MG/ML VIAL IVP PRN (05:14)
[2017-08-12] MEDS: Potassium Citrate 10 MEQ TABLET.ER PO SCH ×2 (09:41→14:56)
[2017-08-12] MEDS: Simethicone 80 MG TAB.CHEW PO SCH ×2 (09:42→14:56)
[2017-08-12] MEDS: Cholecalciferol (D-3) 1,000 UNIT TABLET PO SCH (09:42)
[2017-08-12] MEDS: Diltiazem CD (24hr) 240 MG CAPSULE PO SCH (09:42)
[2017-08-12] MEDS: Furosemide 40 MG TABLET PO SCH (09:42)
[2017-08-12] MEDS: Apixaban 5 MG TABLET PO SCH (09:43)
[2017-08-12] MEDS: *HR* Digoxin 0.25 MG TABLET PO SCH (09:43)
[2017-08-12] MEDS: Multivit/Ca/Min/Fe/FA 1 TAB TABLET PO SCH (09:43)
[2017-08-12] MEDS: Aspirin Enteric Coated 81 MG Tablet PO SCH (09:43)
[2017-08-12] MEDS: (Umeclidinium Bromide [Incruse Ellipta] 62.5 MCG) IH SCH (09:44)
[2017-08-12] MEDS: 0.9 % Sodium Chloride 1,000 ML IVC SCH ×2 (09:44)
[2017-08-12] MEDS: Vancomycin 1,250 MG in D5% in Water 250 ML IVPB SCH (10:53)
[2017-08-12] MEDS: Budesonide/Formoterol 160/4.5 MDI IH SCH (11:28)
--- NOTE | 2017-08-12 11:45 | Discharge Summary ---
Date of Encounter: 08/12/17 Time of Encounter: 11:42 - Discharge Diagnosis (1) Hypokalemia Priority: Secondary Status: Acute (2) Morbid obesity with BMI of 50.0-59.9, adult Priority: Secondary Status: Chronic (3) COPD (chronic obstructive pulmonary disease) Priority: Secondary Status: Chronic Qualifiers: COPD type: unspecified COPD Qualified Code(s): J44.9 - Chronic obstructive pulmonary disease, unspecified (4) HTN (hypertension) Priority: Secondary Status: Chronic Qualifiers: Hypertension type: essential hypertension Qualified Code(s): I10 - Essential (primary) hypertension (5) Tobacco abuse Priority: Secondary Status: Acute (6) Sleep apnea Priority: Secondary Status: Chronic Qualifiers: Sleep apnea type: unspecified type Qualified Code(s): G47.30 - Sleep apnea , unspecified (7) Leg ulcer, left Priority: Secondary Status: Acute Qualifiers: Non-pressure ulcer stage: unspecified non-pressure ulcer stage Qualified Code(s): L97.929 - Non-pressure chronic ulcer of unspecified part of left lower leg with unspecified severity (8) Chronic atrial fibrillation Priority: Secondary Status: Chronic (9) CHF (congestive heart failure) Priority: Secondary Status: Chronic Qualifiers: Congestive heart failure type: unspecified congestive heart failure type Congestive heart failure chronicity: chronic Qualified Code(s): I50.9 - Heart failure, unspecified (10) Status post revision of total replacement of left knee Priority: Secondary Status: Chronic (11) Cellulitis of left knee Priority: Primary Status: Acute (12) Bacteremia due to Gram-negative bacteria Priority: Secondary Status: Acute - Discharge Medications Prescriptions: Cefepime HCl/Dextrose, Iso-Osm [Cefepime 2 gm Injection] 2 gm IV Q12H #12 mls Sulfamethoxazole/Trimeth DS [Bactrim DS] 2 each PO BID #40 tablet Vacuum - Wound [WOUND VAC] 1 each .ROUTE AD #1 each Home Medications: Albuterol Sulfate [Ventolin Hfa] 2 puff IH Q6H PRN 03/13/16 [History] Apixaban [Eliquis] 5 mg PO Q12H 03/13/16 [History] Aspirin Enteric Coated [Aspirin EC] 81 mg PO DAILY 03/13/16 [History] BuPROPion [Wellbutrin] 100 mg PO BID 03/13/16 [History] Calcium Carbonate/Vitamin D3 [Oyster Shell Calcium-Vit D Tab] 500 mg PO BID [History] Citalopram [CeleXA] 60 mg PO DAILY 03/13/16 [History] Digoxin [Lanoxin] 0.25 mg PO DAILY 03/13/16 [History] Ferrous Sulfate 325 mg PO BIDWM 03/13/16 [History] Umeclidinium [place] [Incruse Ellipta] 62.5 mcg IH DAILY 08/01/16 [History] Mv,Ca,Min/Iron Fum/FA/Lyco/Lut [Sentry Multivit & Mineral Cplt] 1 tab PO DAILY 10/12/16 [History] Omeprazole [PriLOSEC] 40 mg PO DAILY 10/12/16 [History] Oxygen 2 l NS AD PRN 10/12/16 [History] Diltiazem HCl [Diltiazem ER] 240 mg PO DAILY 05/03/17 [History] Furosemide [Lasix] 80 mg PO BID 05/03/17 [History] Budesonide/Formoterol 160/4.5 [Symbicort 160/4.5] 2 puff IH BIDR 06/19/17 [ History] Mupirocin [Bactroban Oint] 1 appl TP AD 08/08/17 [History] Cefepime HCl/Dextrose, Iso-Osm [Cefepime 2 gm Injection] 2 gm IV Q12H #12 mls [Rx] Sulfamethoxazole/Trimeth DS [Bactrim DS] 2 each PO BID #40 tablet 08/11/17 [Rx] Vacuum - Wound [WOUND VAC] 1 each .ROUTE AD #1 each 08/11/17 [Rx] Acetaminophen [Tylenol] 650 mg PO Q6HR PRN #30 tablet 08/12/17 [Rx] Docusate [Colace] 100 mg PO BID capsule 08/12/17 [Rx] Ipratropium/Albuterol Neb [Duoneb] 3 ml IH Q8HR #0 08/12/17 [Rx] Polyethylene Glycol 3350 [MiraLAX] 17 gm PO DAILY PRN powd.pack 08/12/17 [Rx] Simethicone [Gas-X] 80 mg PO TID tab.chew 08/12/17 [Rx] Allergies/Adverse Reactions: 3 Allergy/AdvReac Type Severity Reaction Status Date / Time lisinopril AdvReac Cough Verified 08/08/17 12:21 Procedures/tests Complete & Pending: Procedures Performed prior 72 hours Category Date Time Status CT abd pelvis wo no iv no oral [CT] Stat Cat Scan 08/10/17 18:[address] knee LT w con [CT] Stat Cat Scan 08/09/17 14:48 Completed Date of admission: 08/08/17 21:05 Primary care physician: Edouard Cole MD Consults: 08/08/17 21:11 Consult to Physical Therapy [CONS] Routine Comment: Evaluate, develop and implement POC Reason for Consult: Patient reports weakness w/ambulation. Please assess for strength, stability, safety, and possible assistive needs for post-discharge planning. 08/08/17 21:19 Consult to Wound Care [CONS] Routine Reason for Consult: Recurrent cellulitis of the LLE. Please provide wound care recommendations. Call Completed: No 08/09/17 14:44 Consult to Orthopedic Surgery [CONS] Routine Consulting Provider: Isauro Hartmann Reason for Consult: cellulitis, bacteremia L knee, recent TKR Time Notified: 14:46 Call Completed: Yes 08/11/17 08:21 Consult to Wound Care [CONS] Stat Reason for Consult: wound vac? Time Notified: 08:21 Call Completed: Yes - Patient Status Disposition: Transfer SNF Condition: Fair Functional capacity at discharge: uses cane/walker Overall status at discharge: patient is not back to baseline - Discharge Instructions Follow Up With: Edouard Cole MD [Primary Care Provider] - Isai Castanon MD [Partnered Physician] - Additional Instructions: Follow-up with Dr. Castanon and 4-6 weeks. Cefepime 2 g twice a day for 5 days until August 17. Bactrim for 10 more days until August 22. - Diet and Activity Activity: as per physical therapy, increase activity as tolerated, wear oxygen at all times, other (Wound VAC faxed instructions) Diet: low fat, low cholesterol, low salt diet Hospital course: Ms. Lewis is a 66 year old female with past medical history significant for hypertension, chronic atrial fibrillation on anticoagulation, CHF, COPD, morbid obesity, sleep apnea, status post left knee replacement 8 months ago who was brought to the hospital for pain all over as well as pain swelling and drainage from the left knee. She was diagnosed with sepsis secondary to cellulitis. She was admitted to the medical service and treated with broad-spectrum IV antibiotics. She made a good clinical improvement. Blood cultures grew a sensitive Acinetobacter sensitive to Zosyn which she has received throughout this hospitalization. Her white count is trending down. She remained afebrile. Repeat blood cultures drawn yesterday are currently negative to date. Wound culture grew MRSA for which she received treatment with vancomycin. Lower extremity cellulitis has improved. She will be switched to cefepime to complete a 10 day course of IV antibiotics from 08/17/2017 for gram- negative lucas bacteremia. She will be switched to Bactrim to use tablets twice daily for 10 more days for MRSA cellulitis of the left knee. She will have wound VAC for the left knee wound at the alf. The patient is medically stable for discharge to subacute rehabilitation. She is in agreement with the plan. Time spent discussing smoking cessation with patient: 3 to 10 minutes - Time Spent with Patient Total time spent providing and/or coordinating discharge services: Greater than 30 minutes (I have spent 40 minutes coordinating this discharge.) - Constitutional Vitals: Temp Pulse Resp BP Pulse Ox 98.4 F 95 18 126/83 100 08/12/17 07:27 08/12/17 07:27 08/12/17 11:29 08/12/17 07:27 08/12/17 11:29 General appearance: Present: cooperative, mild distress, A&O X 3, morbidly obese , pleasant, answers questions appropriately - Respiratory Respiratory exam: Present: wheezes. Absent: accessory muscle use, rales, rhonchi - Cardiovascular Cardiovascular exam: Present: irregular rhythm, +S1, +S2. Absent: diastolic murmur, gallop, rubs, systolic murmur - GI/Abdominal GI/Abdominal exam: Present: normal bowel sounds, soft, no peritoneal signs. Absent: distended, tenderness - Skin Additional comments: 2 cm left knee wound with minimal discharge, appears to be healing well, improved from 2 days ago.
--- NOTE | 2017-08-12 12:04 | Physician Discharge Referral ---
ExtendedCare Referral Info Provider in Charge after Transfer: PCP Institutional Level of Care: Skilled - Diagnosis (1) Hypokalemia Status: Acute (2) Morbid obesity with BMI of 50.0-59.9, adult Status: Chronic (3) COPD (chronic obstructive pulmonary disease) Status: Chronic (4) HTN (hypertension) Status: Chronic (5) Tobacco abuse Status: Acute (6) Sleep apnea Status: Chronic (7) Leg ulcer, left Status: Acute (8) Chronic atrial fibrillation Status: Chronic (9) CHF (congestive heart failure) Status: Chronic (10) Status post revision of total replacement of left knee Status: Chronic (11) Cellulitis of left knee Status: Acute (12) Bacteremia due to Gram-negative bacteria Status: Acute - Transfer Medications Prescriptions: Acetaminophen [Tylenol] 650 mg PO Q6HR PRN #30 tablet PRN Reason: Pain Cefepime HCl/Dextrose, Iso-Osm [Cefepime 2 gm Injection] 2 gm IV Q12H #12 mls Sulfamethoxazole/Trimeth DS [Bactrim DS] 2 each PO BID #40 tablet Vacuum - Wound [WOUND VAC] 1 each .ROUTE AD #1 each Home Medications: Albuterol Sulfate [Ventolin Hfa] 2 puff IH Q6H PRN 03/13/16 [History] Apixaban [Eliquis] 5 mg PO Q12H 03/13/16 [History] Aspirin Enteric Coated [Aspirin EC] 81 mg PO DAILY 03/13/16 [History] BuPROPion [Wellbutrin] 100 mg PO BID 03/13/16 [History] Calcium Carbonate/Vitamin D3 [Oyster Shell Calcium-Vit D Tab] 500 mg PO BID [History] Citalopram [CeleXA] 60 mg PO DAILY 03/13/16 [History] Digoxin [Lanoxin] 0.25 mg PO DAILY 03/13/16 [History] Ferrous Sulfate 325 mg PO BIDWM 03/13/16 [History] Umeclidinium [place] [Incruse Ellipta] 62.5 mcg IH DAILY 08/01/16 [History] Mv,Ca,Min/Iron Fum/FA/Lyco/Lut [Sentry Multivit & Mineral Cplt] 1 tab PO DAILY 10/12/16 [History] Omeprazole [PriLOSEC] 40 mg PO DAILY 10/12/16 [History] Oxygen 2 l NS AD PRN 10/12/16 [History] Diltiazem HCl [Diltiazem ER] 240 mg PO DAILY 05/03/17 [History] Furosemide [Lasix] 80 mg PO BID 05/03/17 [History] Budesonide/Formoterol 160/4.5 [Symbicort 160/4.5] 2 puff IH BIDR 06/19/17 [ History] Mupirocin [Bactroban Oint] 1 appl TP AD 08/08/17 [History] Cefepime HCl/Dextrose, Iso-Osm [Cefepime 2 gm Injection] 2 gm IV Q12H #12 mls [Rx] Sulfamethoxazole/Trimeth DS [Bactrim DS] 2 each PO BID #40 tablet 08/11/17 [Rx] Vacuum - Wound [WOUND VAC] 1 each .ROUTE AD #1 each 08/11/17 [Rx] Acetaminophen [Tylenol] 650 mg PO Q6HR PRN #30 tablet 08/12/17 [Rx] Docusate [Colace] 100 mg PO BID capsule 08/12/17 [Rx] Ipratropium/Albuterol Neb [Duoneb] 3 ml IH Q8HR #0 08/12/17 [Rx] Polyethylene Glycol 3350 [MiraLAX] 17 gm PO DAILY PRN powd.pack 08/12/17 [Rx] Simethicone [Gas-X] 80 mg PO TID tab.chew 08/12/17 [Rx] Allergies/Adverse Reactions: 3 Allergy/AdvReac Type Severity Reaction Status Date / Time lisinopril AdvReac Cough Verified 08/08/17 12:21 - Respiratory Orders Oxygen / L per min Smoking Cessation: Smoking cessation has been advised. For more information, call the [place] Tobacco Quit Line at 1-541-MDHA-NOW. - Lab Orders Lab Orders: CBC, Gavin 17 (CBC and CMP on 08/16/2017. Report to nursing officer.) - Advance Directives Living Will: Yes Power of Horseback Excavator: Yes Code Status: Full Code - Mobility Orders Ambulate (Ambulate with assistance) - Rehabiliation Orders Rehab Potential: Good Rehab Orders: Evaluation for Physical Therapy, Evaluation for Occupational Therapy - Treatments Skin tear care topically daily PRN per policy List/Other: Wound VAC orders faxed - Diet Orders No Added Salt (CARROL), Cardiac CERTIFICATION: I certify that the transfer of the above named patient to an Extended Care Facility is necessary for the continuing treatment of the diagnosis listed. The above information is true and accurate reflection of patient's current condition. Confidential - Redisclosure prohibited without a patient's written consent.
[2017-08-12 16:01] VITALS: BP 146/79
== END 2017-08-12 17:05 | DRG 872 ==
LOC: 3NENU 12:15 → EMEROO 12:15 → 3NENU 16:58 → SUATTDRO 21:05
PROVIDERS: ADMIT Internal Medicine; ATTEND Internal Medicine

== ENCOUNTER 2017-08-29 14:09 | Inpatient (IN) ==
--- NOTE | 2017-08-29 15:09 | Emergency Department Note ---
START Narrative - START START: 66-year-old female with a history of left knee replacement a year ago comes in from the wound center with concerns of a joint infection. Patient states that she was told that she will likely be admitted. She's got pain and redness of the knee. She has had a chronic wound is being treated at the wound center. Wound center states that the wound is significantly deep and will likely require debridement and admission.
[2017-08-29 16:38] LABS: Basophils # 0.1 K/mcL (0.0-0.2); Basophils % 0.5 %; Eosinophils # 0.4 K/mcL (0.0-0.6); Eosinophils % 3.7 %; Hematocrit 36.9 % (35.3-44.9); Hemoglobin 11.1 g/dL (11.5-15.4); Immature Granulocytes % 0.5 % (0-4); Lymphocytes # 1.5 K/mcL (0.6-4.6); Lymphocytes % 15.2 %; Mean Corpuscular HGB Conc 30.1 g/dL (31.6-35.5); Mean Corpuscular Hemoglobin 24.4 pg (28.0-33.3); Mean Corpuscular Volume 81.3 fL (83.0-100.0); Mean Platelet Volume 9.6 fL (9.4-12.4); Monocytes # 0.8 K/mcL (0.0-1.3); Monocytes % 8.2 %; Neutrophils # 7.2 K/mcL (1.6-8.9); Platelet Count 426 K/mcL (140-400); Red Blood Count 4.54 M/mcL (3.82-4.97); Red Cell Distribution Width 15.1 % (11.5-14.5); Segmented Neutrophils % 71.9 %
[2017-08-29 16:58] LABS: BUN/Creatinine Ratio 20 (6-26); Blood Urea Nitrogen 15 mg/dL (8-23); Calcium 9.5 mg/dL (8.6-10.3); Carbon Dioxide 27 mEq/L (23-29); Chloride 103 mEq/L (98-107); Glucose 94 mg/dL (70-105); Osmolality,Calculated 283 (280-300); Potassium 3.9 mEq/L (3.5-5.1); Sodium 136 mEq/L (136-145); eGFR For African Americans > 60 (> 60); eGFR For Non-African Americans > 60 (> 60)
[2017-08-29] MEDS ORDERED: Piperacillin/Tazobactam 3.375 GM in D5% in Water (Mini-Bag+) 100 ML IVPB ONE (20:59)
[2017-08-29] MEDS ORDERED: 0.9 % Sodium Chloride 1,000 ML IVC ONE (20:59)
[2017-08-29] MEDS ORDERED: Vancomycin 1,000 MG in D5% in Water 250 ML IVPB ONE (20:59)
[2017-08-29] MEDS ORDERED: Naloxone 0.4 MG/ML INJ IVP PRN (21:26)
[2017-08-29] MEDS ORDERED: Ondansetron 4 MG/2 ML VIAL IVP PRN (21:26)
[2017-08-29] MEDS ORDERED: *HR* Morphine 2 MG/ML SYRINGE IVP PRN (21:26)
[2017-08-29] MEDS ORDERED: Piperacillin/Tazobactam 3.375 GM in Water for inj. (sterile) 20 ML 20 ML IVP ONE (21:45)
--- NOTE | 2017-08-29 22:46 | Emergency Department Note ---
Disposition Clinical Impression: History of total knee arthroplasty Qualifiers: Laterality: left Qualified Code(s): Z96.652 - Presence of left artificial knee joint Abscess in bursa Qualifiers: Bursa location: knee Laterality: left Qualified Code(s): M71.062 - Abscess of bursa, left knee Disposition: Admitted As Inpatient Condition: Fair Referrals: Edouard Cole MD [Primary Care Provider] - Forms: ED Satisfaction Letter Time of Disposition: 22:48 Extremity Problem HPI - General Chief complaint: ED Extremity Problem,Nontraumatic Stated complaint: left knee pain, swelling Time Seen by Provider: 08/29/17 15:05 Source: patient Mode of arrival: ambulatory Limitations: no limitations Nursing Notes Reviewed: Yes Vital Signs Reviewed: Yes - History of Present Illness HPI Narrative: 66-year-old female history of hypertension, atrial fibrillation, morbid obesity , previous left TKA was sent here for from wound care by Dr. Marin the general surgeon, she previously was admitted 2 weeks ago for cellulitis she subsequently had a wound VAC on her left knee for a draining area of abscess or ulcer, he took off the drainage, impacted after he tried a express and a lot of zeenat pus came out of the wound. He is concerned about contaminated or through. Hardware in the left knee joint. The plan per the documentation is for admission IV antibiotics orthopedic consult with general hospitalist admission. The patient states that she is 8 out of 10 pain worse with trying to bend her knee, she denies history of DVT or PE, denies fever and chills. Had redness and warmth in the knee Pt Subjective Complaint: extremity pain Onset (ago): day(s) Consistency: intermittent Pain Scale: 10 Quality: aching Improves with: nothing Worsens with: range of motion, weight bearing Associated symptoms: Denies: chest pain, shortness of breath, fever, myalgias, arthralgias, redness - Related Data Home Medications Medication Instructions Recorded Confirmed Albuterol Sulfate [Ventolin Hfa] 2 puff IH Q6H PRN 03/13/16 08/29/17 Apixaban [Eliquis] 5 mg PO Q12H 03/13/16 08/29/17 Aspirin Enteric Coated [Aspirin EC] 81 mg PO DAILY 03/13/16 08/29/17 BuPROPion [Wellbutrin] 100 mg PO BID 03/13/16 08/29/17 Calcium Carbonate/Vitamin D3 500 mg PO BID 03/13/16 08/29/17 [Oyster Shell Calcium-Vit D Tab] Citalopram [CeleXA] 60 mg PO DAILY 03/13/16 08/29/17 Digoxin [Lanoxin] 0.25 mg PO DAILY 03/13/16 08/29/17 Ferrous Sulfate 325 mg PO BIDWM 03/13/16 08/29/17 Umeclidinium [place] [Incruse 62.5 mcg IH DAILY 08/01/16 08/29/17 Ellipta] Mv,Ca,Min/Iron Fum/FA/Lyco/Lut 1 tab PO DAILY 10/12/16 08/29/17 [Sentry Multivit & Mineral Cplt] Omeprazole [PriLOSEC] 40 mg PO DAILY 10/12/16 08/29/17 Oxygen 2 l NS AD PRN 10/12/16 08/29/17 Diltiazem HCl [Diltiazem ER] 240 mg PO DAILY 05/03/17 08/29/17 Furosemide [Lasix] 80 mg PO BID 05/03/17 08/29/17 Budesonide/Formoterol 160/4.5 2 puff IH BIDR 06/19/17 08/29/17 [Symbicort 160/4.5] Mupirocin [Bactroban Oint] 1 appl TP AD 08/08/17 08/29/17 Docusate [Colace] 100 mg PO BID PRN 08/29/17 08/29/17 Previous Rx's Medication Instructions Recorded Acetaminophen [Tylenol] 650 mg PO Q6HR PRN #30 tablet 08/12/17 Ipratropium/Albuterol Neb [Duoneb] 3 ml IH Q8HR #0 08/12/17 Polyethylene Glycol 3350 [MiraLAX] 17 gm PO DAILY PRN powd.pack 08/12/17 Potassium Chloride 20 meq PO BID #30 tab.er.prt 08/12/17 Simethicone [Gas-X] 80 mg PO TID tab.chew 08/12/17 Allergies Allergy/AdvReac Type Severity Reaction Status Date / Time lisinopril AdvReac Cough Verified 08/29/17 15:05 All systems ED: reviewed and negative except as stated. Review of Systems: As Per HPI Constitutional: Denies: fever Eyes: Denies: eye pain, eye discharge Cardiovascular: Denies: chest pain, palpitations Respiratory: Denies: cough, dyspnea Gastrointestinal: Denies: abdominal pain, nausea Genitourinary: Denies: urgency Musculoskeletal: Reports: as per HPI, joint swelling, arthralgia. Denies: back pain, neck pain Integumentary: Reports: rash, abrasion, lesions Past Medical History - Past Medical History Attestation: Yes The following information was validated with the patient. 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 Skin: Left knee with a packed ulcerated lesion about 1 cm in diameter, erythematous around outlying tissue - General Limitations: no limitations General appearance: alert, in no apparent distress Course Course Narrative: Pt with no Sirs criteria however has extremely elevated ESR, looks like cellulitis with an abscess draining zeenat pus in the left knee, concern for joint infection I did consult orthopedist Dr. Diego was called in the emergency department, but I spoke with the hospitalist for admission IV antibiotics at the general surgeons recommendation who saw her in wound care. The wound was packed, unclear fluid cultures were sent but he get blood cultures started empirically on vancomycin and Zosyn Vital Signs Temperature 99.2 F 08/29/17 15:00 Pulse Rate 78 08/29/17 15:00 Respiratory Rate 16 08/29/17 15:00 Blood Pressure 132/77 08/29/17 15:00 O2 Sat by Pulse Oximetry 98 08/29/17 15:00 Temperature 99.2 F 08/29/17 15:00 Pulse Rate 78 08/29/17 15:00 Respiratory Rate 16 08/29/17 15:00 Blood Pressure 132/77 08/29/17 15:00 O2 Sat by Pulse Oximetry 98 08/29/17 15:00 Oxygen Delivery Oxygen Delivery Room Air Extremity Problem, Nontraumati - Differential Diagnosis Likely: cellulitis, lower extremity edema, compartment syndrome, occult trauma - Medical Records Medical records reviewed: Yes I reviewed the patient's medical records. - Lab Data Lab results reviewed: Yes I reviewed the patient's lab results. Result diagrams: 08/29/17 16:06 08/29/17 16:06 Lab Results 08/29/17 08/29/17 08/29/17 Range/Units 16:06 16:06 16:06 WBC 10.0 (4.3-11.1) K/mcL RBC 4.54 (3.82-4.97) M/mcL Hgb 11.1 L (11.5-15.4) g/dL Hct 36.9 (35.3-44.9) % MCV 81.3 L (83.0-100.0) fL MCH 24.4 L (28.0-33.3) pg MCHC 30.1 L (31.6-35.5) g/dL RDW 15.1 H (11.5-14.5) % Plt Count 426 H (140-400) K/mcL MPV 9.6 (9.4-12.4) fL Immature Gran % 0.5 (0-4) % Seg Neutrophils % 71.9 % Lymphocytes % 15.2 % Monocytes % 8.2 % Eosinophils % 3.7 % Basophils % 0.5 % Neutrophils # 7.2 (1.6-8.9) K/mcL Lymphocytes # 1.5 (0.6-4.6) K/mcL Monocytes # 0.8 (0.0-1.3) K/mcL Eosinophils # 0.4 (0.0-0.6) K/mcL Basophils # 0.1 (0.0-0.2) K/mcL ESR >= 130 H (0-15) mm/hr Sodium 136 (136-145) mEq/L Potassium 3.9 (3.5-5.1) mEq/L Chloride 103 (98-107) mEq/L Carbon Dioxide 27 (23-29) mEq/L BUN 15 (8-23) mg/dL Creatinine 0.75 (0.60-1.20) mg/dL Est GFR ( Amer) > 60 (> 60) Est GFR (Non-Af Amer) > 60 (> 60) BUN/Creatinine Ratio 20 (6-26) Glucose 94 (70-105) mg/dL Calculated Osmolality 283 (280-300) Lactic Acid (0.5-2.2) mmol/L Calcium 9.5 (8.6-10.3) mg/dL 08/29/17 Range/Units 21:13 WBC (4.3-11.1) K/mcL RBC (3.82-4.97) M/mcL Hgb (11.5-15.4) g/dL Hct (35.3-44.9) % MCV (83.0-100.0) fL MCH (28.0-33.3) pg MCHC (31.6-35.5) g/dL RDW (11.5-14.5) % Plt Count (140-400) K/mcL MPV (9.4-12.4) fL Immature Gran % (0-4) % Seg Neutrophils % % Lymphocytes % % Monocytes % % Eosinophils % % Basophils % % Neutrophils # (1.6-8.9) K/mcL Lymphocytes # (0.6-4.6) K/mcL Monocytes # (0.0-1.3) K/mcL Eosinophils # (0.0-0.6) K/mcL Basophils # (0.0-0.2) K/mcL ESR (0-15) mm/hr Sodium (136-145) mEq/L Potassium (3.5-5.1) mEq/L Chloride (98-107) mEq/L Carbon Dioxide (23-29) mEq/L BUN (8-23) mg/dL Creatinine (0.60-1.20) mg/dL Est GFR ( Amer) (> 60) Est GFR (Non-Af Amer) (> 60) BUN/Creatinine Ratio (6-26) Glucose (70-105) mg/dL Calculated Osmolality (280-300) Lactic Acid 1.0 (0.5-2.2) mmol/L Calcium (8.6-10.3) mg/dL - Radiology Data Radiology results reviewed: Yes I reviewed the patient's radiology results. Knee X-Ray 08/29/17 15:06 IMPRESSION: Stable left knee arthroplasty. D/ / 08/29/2017 16:36:02 Sanket Lange MD / augustine Interpreting Provider: Sanket Lange MD Attestation Statement - Attestation Attestation: Dr Rivera note: Pt seen in conjunction w/ resident Dr Whyte; Please see his charting for complete documentation; I spent face to face time w/ pt and agree w/ pts treament and disposition and spent face to face time w/ pt; labs reviewed; abx ordered; n on toxic in appearance; same sx intermittent for months; infection is clinically anterior to the knee joint; pleasant/well appering; admission requested by Dr. Castanon and surgeon in the wound clinic;
[2017-08-29] MEDS ORDERED: Acetaminophen 325 MG TABLET PO PRN (22:58)
--- NOTE | 2017-08-29 23:05 | Internal Med History&Physical ---
Date of Encounter: 08/29/17 Time of Encounter: 22:05 Assessment and Plan (1) Cellulitis of left knee Current visit: No Status: Acute secondary to infected surgical site with concern for infection to the prosthetic joint awaiting CT left knee continue broad spectrum IV abx (Vanc and Zosyn) f/u blood cultures orthopedic evaluation requested with Dr. Castanon(consult called by the ER physician) pain control wound care NPO after midnight, tentative surgical intervention by orthopedic surgery in am (2) Non-healing surgical wound Current visit: No Status: Acute as listed above Qualifiers: Encounter type: subsequent encounter Qualified Code(s): T81.89XD - Other complications of procedures, not elsewhere classified, subsequent encounter (3) History of total knee arthroplasty Current visit: Yes Status: Chronic Qualifiers: Laterality: left Qualified Code(s): Z96.652 - Presence of left artificial knee joint (4) COPD (chronic obstructive pulmonary disease) Current visit: No Status: Chronic not in acute exacerbation continue home meds Qualifiers: COPD type: unspecified COPD Qualified Code(s): J44.9 - Chronic obstructive pulmonary disease, unspecified (5) Chronic atrial fibrillation Current visit: No Status: Chronic rate controlled with Digoxin and Cardizem anticoagulated with Eliquis holding eliquis at this time for tentative surgery in am (pending ortho evaluation) (6) HTN (hypertension) Current visit: No Status: Chronic BP within acceptable range continue home meds Qualifiers: Hypertension type: essential hypertension Qualified Code(s): I10 - Essential (primary) hypertension (7) Morbid obesity Current visit: No Status: Chronic (8) Sleep apnea Current visit: No Status: Chronic cpap at bedtime Qualifiers: Sleep apnea type: unspecified type Qualified Code(s): G47.30 - Sleep apnea , unspecified (9) DVT prophylaxis Current visit: No Status: Acute SCD resume eliquis after surgical intervention Internal Medicine - H&P: HPI Chief complaint: sent from wound care clinic for infected left knee wound Admitted From: Home Plans for Post Hospital Care: Transfer Long Term Facility History of present illness: Ms. Lewis is a 66 year old female with PMH of hypertension, chronic atrial fibrillation on anticoagulation, CHF, COPD, morbid obesity, sleep apnea, status post left knee replacement who was sent to the hospital from wound care clinic by DR. Eckhart Mines for management of infected left knee wound. Pt was noted to have purulent discharge with concerns of infected prosthetic knee joint. She was transferred to the ER for IV abx and ortho evaluation. Pt reports of severe pain in the left knee that has not been relieved with over the counter medications. Denies any fevers, or chills. Will admit for IV and ortho follow up requested. Social hx: pt reports of quitting smoking 3 weeks ago Past Med Surg Social Fam HX - Past Medical History Medical history: atrial fibrillation, CHF, COPD, GERD, hyperlipidemia, hypertension, other Psychiatric history: depression - Past Surgical History Surgical History: knee replacement, other - Social History Smoking Status: Former smoker Smokeless Tobacco Status: No Alcohol use: none Drug use: none - Family History Mother Adopted: No Family Member Ethnicity: Non- Living Status: Hx Family Cardiac Disorders: Yes (TIAs, CVA, HTN) Hx Family Respiratory Disorders: Yes Hx Family Cancer: Yes Hx Family GI Disorders: No Hx Family Endocrine Disorder: Yes Hx Family Neuromuscular Disorders: No Hx Family Neurologic Disorders: No Hx Family HEENT Disorders: No Hx Family Autoimmune Disorders: No Father Family Member Ethnicity: Non- Living Status: Hx Family Cardiac Disorders: Yes Hx Family Respiratory Disorders: Yes Hx Family Cancer: Yes (Stomach) Hx Family GI Disorders: No Hx Family Endocrine Disorder: Yes Hx Family Neuromuscular Disorders: No Hx Family Neurologic Disorders: No Hx Family HEENT Disorders: No Hx Family Autoimmune Disorders: No Brother Adopted: No Family Member Ethnicity: Non- Living Status: Still Living Hx Family Cardiac Disorders: Yes Hx Family Respiratory Disorders: No Hx Family Cancer: No Hx Family GI Disorders: No Hx Family Endocrine Disorder: Yes Hx Family Neuromuscular Disorders: No Hx Family Neurologic Disorders: Yes Hx Family HEENT Disorders: No Hx Family Autoimmune Disorders: No Sister Family Member Ethnicity: Non- Living Status: Still Living Hx Family Cardiac Disorders: Yes (HTN) Hx Family Respiratory Disorders: Yes (COPD) Internal Medicine - H&P: Meds Albuterol Sulfate [Ventolin Hfa] 2 puff IH Q6H PRN 03/13/16 [History] Apixaban [Eliquis] 5 mg PO Q12H 03/13/16 [History] Aspirin Enteric Coated [Aspirin EC] 81 mg PO DAILY 03/13/16 [History] BuPROPion [Wellbutrin] 100 mg PO BID 03/13/16 [History] Calcium Carbonate/Vitamin D3 [Oyster Shell Calcium-Vit D Tab] 500 mg PO BID [History] Citalopram [CeleXA] 60 mg PO DAILY 03/13/16 [History] Digoxin [Lanoxin] 0.25 mg PO DAILY 03/13/16 [History] Ferrous Sulfate 325 mg PO BIDWM 03/13/16 [History] Umeclidinium [place] [Incruse Ellipta] 62.5 mcg IH DAILY 08/01/16 [History] Mv,Ca,Min/Iron Fum/FA/Lyco/Lut [Sentry Multivit & Mineral Cplt] 1 tab PO DAILY 10/12/16 [History] Omeprazole [PriLOSEC] 40 mg PO DAILY 10/12/16 [History] Oxygen 2 l NS AD PRN 10/12/16 [History] Diltiazem HCl [Diltiazem ER] 240 mg PO DAILY 05/03/17 [History] Furosemide [Lasix] 80 mg PO BID 05/03/17 [History] Budesonide/Formoterol 160/4.5 [Symbicort 160/4.5] 2 puff IH BIDR 06/19/17 [ History] Mupirocin [Bactroban Oint] 1 appl TP AD 08/08/17 [History] Acetaminophen [Tylenol] 650 mg PO Q6HR PRN #30 tablet 08/12/17 [Rx] Ipratropium/Albuterol Neb [Duoneb] 3 ml IH Q8HR #0 08/12/17 [Rx] Polyethylene Glycol 3350 [MiraLAX] 17 gm PO DAILY PRN powd.pack 08/12/17 [Rx] Potassium Chloride 20 meq PO BID #30 tab.er.prt 08/12/17 [Rx] Simethicone [Gas-X] 80 mg PO TID tab.chew 08/12/17 [Rx] Docusate [Colace] 100 mg PO BID PRN 08/29/17 [History] 3 Allergy/AdvReac Type Severity Reaction Status Date / Time lisinopril AdvReac Cough Verified 08/29/17 15:05 All Systems PM: A 10-system review of systems was performed and is negative for pertinent findings except as documented above in the HPI. - Constitutional Constitutional: as per HPI - Constitutional Vitals: Temp Pulse Resp BP Pulse Ox 99.2 F 78 16 132/77 98 08/29/17 15:00 08/29/17 15:00 08/29/17 15:00 08/29/17 15:00 08/29/17 15:00 General appearance: Present: A&O X 3, morbidly obese, no acute distress, answers questions appropriately - Head Head exam: Present: atraumatic, normocephalic - Eye Eye exam: Present: conjuntiva pink, sclera anicteric - Respiratory Respiratory exam: Present: CTAB. Absent: respiratory distress, wheezes - Cardiovascular Cardiovascular exam: Present: RRR, +S1, +S2. Absent: diastolic murmur, gallop, rubs, systolic murmur - GI/Abdominal GI/Abdominal exam: Present: normal bowel sounds, soft, no peritoneal signs. Absent: distended, tenderness - Extremities Exam Extremities exam: Present: tenderness (left knee tenderness, purulent discharge noted from incision site ), warm, radial pulses palpable and symmetrical. Absent: calf tenderness - Neurological Exam Neurological exam: Present: alert, oriented X3 Internal Med - H&P Results - Labs CBC & Chem 7: 08/29/17 16:06 08/29/17 16:06
[2017-08-30] MEDS: *HR* HYDROcodone/Acet 5/325 mg TABLET PO PRN ×3 (01:00→21:36)
[2017-08-30] MEDS: Nystatin POWDER 30 GM BOTTLE TP SCH ×4 (01:01→21:26)
[2017-08-30] MEDS: Piperacillin/Tazobactam 3.375 GM/200 ML BAG IVPB SCH ×2 (04:51→12:20)
[2017-08-30] MEDS ORDERED: Vancomycin 1,000 MG in D5% in Water 250 ML IVPB SCH (06:00)
[2017-08-30 07:08] LABS: BUN/Creatinine Ratio 19 (6-26); Blood Urea Nitrogen 13 mg/dL (8-23); Calcium 8.7 mg/dL (8.6-10.3); Carbon Dioxide 26 mEq/L (23-29); Chloride 105 mEq/L (98-107); Glucose 90 mg/dL (70-105); Magnesium 1.8 mg/dL (1.6-2.6); Osmolality,Calculated 282 (280-300); Phosphorous 3.8 mg/dL (2.7-4.5); Potassium 3.9 mEq/L (3.5-5.1); Sodium 136 mEq/L (136-145); eGFR For African Americans > 60 (> 60); eGFR For Non-African Americans > 60 (> 60)
[2017-08-30 07:17] LABS: Basophils % 0.5 %; Eosinophils # 0.4 K/mcL (0.0-0.6); Eosinophils % 5.5 %; Hematocrit 33.4 % (35.3-44.9); Hemoglobin 9.9 g/dL (11.5-15.4); Immature Granulocytes % 0.7 % (0-4); Lymphocytes # 1.2 K/mcL (0.6-4.6); Mean Corpuscular HGB Conc 29.6 g/dL (31.6-35.5); Mean Corpuscular Hemoglobin 24.1 pg (28.0-33.3); Mean Corpuscular Volume 81.5 fL (83.0-100.0); Mean Platelet Volume 9.9 fL (9.4-12.4); Monocytes # 0.8 K/mcL (0.0-1.3); Monocytes % 9.8 %; Neutrophils # 5.2 K/mcL (1.6-8.9); Platelet Count 360 K/mcL (140-400); Red Cell Distribution Width 15.1 % (11.5-14.5); Segmented Neutrophils % 67.5 %
--- NOTE | 2017-08-30 07:56 | Orthopedic Consult Note ---
Date of Encounter: 08/30/17 Time of Encounter: 07:55 Assessment and Plan (1) Cellulitis of left knee Current Visit: Yes Status: Chronic Discussed with Dr. Castanon. Cancel NPO Surgery Friday 09/01 for incision and drainage of infected left knee with possible revision left total knee. Continue with medical optimization History of Present Illness Chief complaint: left knee pain HPI: Ms. Lewis is a 66 year old female presents with left knee pain to [facility] ED from wound care. She states that she was just discharged from [facility] days ago and saw wound care for the first time since discharge yesterday and was sent straight to ED. Patient admits to ongoing and worsening left knee pain since last admission in mid-July. On exam, patient resting comfortably in bed. She is alert and oriented. Bandaging noted to anterior left knee. Taken down reveals appx 1cm erosion through superficial layers of skin revealing packing material. No active drainage noted. Dull erythema noted to entire anterior knee and anterior cherry with cracked skin. Very tender to touch of the cherry. No calf pain to palpation. Neurovascularly intact. EXAMINATION: CT OF THE LEFT KNEE WITH CONTRAST 08/29/2017 10:44 pm TECHNIQUE: CT of the left knee was performed with the administration of intravenous contrast. Multiplanar reformatted images are provided for review. Dose modulation, iterative reconstruction, and/or weight based adjustment of the mA/kV was utilized to reduce the radiation dose to as low as reasonably achievable. COMPARISON: Radiographs dated 08/29/[address] left knee dated 08/09/2017 HISTORY ORDERING SYSTEM PROVIDED HISTORY: post tka, drainage cellulitis 70 ml of iso 370 FINDINGS: Bones: Long-stem revision arthroplasty is again noted at the left knee. The components appear stable in alignment when compared to the previous CT. There is no progression of lucency at the bone-cement interface when compared to the previous CT. There is focal corticated deficiency of the bone at the anterior tibial metaphysis, which is unchanged. No evidence of acute periprosthetic fracture. No aggressive periosteal reaction. Callus related to a healed distal femoral fracture is again noted. No focal osseous destructive change is evident. Patella is surgically absent. Soft Tissue: Streak artifact from the hardware mildly limits assessment of the soft tissues at the knee. There is re- demonstration of reticulation of the subcutaneous fat anterior to the knee and in the visualized leg. Numerous dystrophic calcifications are seen in the anterior leg. There is linear scarring ventral to the femoral component, which is unchanged. There is soft tissue thickening and/or fluid in the region of Hoffa's fat, which is similar to the previous study and could be related to postoperative change. Soft tissue gas is noted in this location on the previous study. No significant suprapatellar joint effusion is visualized. There is no peripherally enhancing fluid collection identified. Skin thickening is noted in the visualized leg. Joint: Arthroplasty in place. CT/CT knee LT w con IMPRESSION: 1. Re- demonstration of a long-stem revision arthroplasty and patellectomy without significant change when compared to previous CT dated 08/09/2017. No evidence of acute periprosthetic fracture or progressive lucency at the bone-cement interface. 2. Soft tissue thickening and/or fluid in the region of Hoffa's fat, which is similar to the previous study and could be related to postoperative change. Soft tissue gas was present in this location on the previous study but is not seen today. No organized peripherally enhancing fluid collection identified. No significant suprapatellar joint effusion. 3. Diffuse subcutaneous edema and skin thickening again noted, compatible with clinical history of cellulitis. D/ / Krystle Do / Krystle Do Interpreting Provider: Krystle Do Discussed with Dr. Castanon. Cancel NPO Surgery Friday 09/01 for incision and drainage of infected left knee with possible revision left total knee. Continue with medical optimization Past Med Surg Social Fam HX - Past Medical History Medical history: atrial fibrillation, CHF, COPD, GERD, hyperlipidemia, hypertension, other Psychiatric history: depression - Past Surgical History Surgical History: knee replacement, other - Social History Smoking Status: Former smoker Smokeless Tobacco Status: No Alcohol use: none Drug use: none - Family History Mother Adopted: No Family Member Ethnicity: Non- Living Status: Hx Family Cardiac Disorders: Yes (TIAs, CVA, HTN) Hx Family Respiratory Disorders: Yes Hx Family Cancer: Yes Hx Family GI Disorders: No Hx Family Endocrine Disorder: Yes Hx Family Neuromuscular Disorders: No Hx Family Neurologic Disorders: No Hx Family HEENT Disorders: No Hx Family Autoimmune Disorders: No Father Family Member Ethnicity: Non- Living Status: Hx Family Cardiac Disorders: Yes Hx Family Respiratory Disorders: Yes Hx Family Cancer: Yes (Stomach) Hx Family GI Disorders: No Hx Family Endocrine Disorder: Yes Hx Family Neuromuscular Disorders: No Hx Family Neurologic Disorders: No Hx Family HEENT Disorders: No Hx Family Autoimmune Disorders: No Brother Adopted: No Family Member Ethnicity: Non- Living Status: Still Living Hx Family Cardiac Disorders: Yes Hx Family Respiratory Disorders: No Hx Family Cancer: No Hx Family GI Disorders: No Hx Family Endocrine Disorder: Yes Hx Family Neuromuscular Disorders: No Hx Family Neurologic Disorders: Yes Hx Family HEENT Disorders: No Hx Family Autoimmune Disorders: No Sister Adopted: [place]: Nataliya Franklin Age: 72 Family Member Ethnicity: Non- Living Status: Still Living Hx Family Cardiac Disorders: Yes (HTN) Hx Family Respiratory Disorders: Yes (COPD, ASTHMA) Hx Family Cancer: No Hx Family GI Disorders: No Hx Family Genitourinary Disorders: No Hx Family Endocrine Disorder: No Hx Family Musculoskeletal Disorders: No Hx Family Neuromuscular Disorders: No Hx Family Neurologic Disorders: No Hx Family HEENT Disorders: No Hx Family Autoimmune Disorders: No Hx Family Reproductive Disorders: No Hx Family Psychosocial Disorders: No Hx Family Medical Disorders: No Medications and Allergies Albuterol Sulfate [Ventolin Hfa] 2 puff IH Q6H PRN 03/13/16 [History] Apixaban [Eliquis] 5 mg PO Q12H 03/13/16 [History] Aspirin Enteric Coated [Aspirin EC] 81 mg PO DAILY 03/13/16 [History] BuPROPion [Wellbutrin] 100 mg PO BID 03/13/16 [History] Calcium Carbonate/Vitamin D3 [Oyster Shell Calcium-Vit D Tab] 500 mg PO BID [History] Citalopram [CeleXA] 60 mg PO DAILY 03/13/16 [History] Digoxin [Lanoxin] 0.25 mg PO DAILY 03/13/16 [History] Ferrous Sulfate 325 mg PO BIDWM 03/13/16 [History] Umeclidinium [place] [Incruse Ellipta] 62.5 mcg IH DAILY 08/01/16 [History] Mv,Ca,Min/Iron Fum/FA/Lyco/Lut [Sentry Multivit & Mineral Cplt] 1 tab PO DAILY 10/12/16 [History] Omeprazole [PriLOSEC] 40 mg PO DAILY 10/12/16 [History] Oxygen 2 l NS AD PRN 10/12/16 [History] Diltiazem HCl [Diltiazem ER] 240 mg PO DAILY 05/03/17 [History] Furosemide [Lasix] 80 mg PO BID 05/03/17 [History] Budesonide/Formoterol 160/4.5 [Symbicort 160/4.5] 2 puff IH BIDR 06/19/17 [ History] Mupirocin [Bactroban Oint] 1 appl TP AD 08/08/17 [History] Acetaminophen [Tylenol] 650 mg PO Q6HR PRN #30 tablet 08/12/17 [Rx] Ipratropium/Albuterol Neb [Duoneb] 3 ml IH Q8HR #0 08/12/17 [Rx] Polyethylene Glycol 3350 [MiraLAX] 17 gm PO DAILY PRN powd.pack 08/12/17 [Rx] Potassium Chloride 20 meq PO BID #30 tab.er.prt 08/12/17 [Rx] Simethicone [Gas-X] 80 mg PO TID tab.chew 08/12/17 [Rx] Docusate [Colace] 100 mg PO BID PRN 08/29/17 [History] 3 Allergy/AdvReac Type Severity Reaction Status Date / Time lisinopril AdvReac Cough Verified 08/29/17 15:05 All Systems Reviewed: A 10-system review of systems was performed and is negative for pertinent findings except as documented above in the HPI. Physical Exam - Constitutional Vitals: Temp Pulse Resp BP Pulse Ox 97.9 F 80 20 128/76 99 08/30/17 06:24 08/30/17 06:24 08/30/17 06:24 08/30/17 06:24 08/30/17 06:24 Results - Labs Result Diagrams: 08/31/17 04:38 08/31/17 04:38 Labs: Abnormal lab results Hgb 9.9 g/dL (11.5-15.4) L 08/30/17 05:22 Hct 33.4 % (35.3-44.9) L 08/30/17 05:22 MCV 81.5 fL (83.0-100.0) L 08/30/17 05:22 MCH 24.1 pg (28.0-33.3) L 08/30/17 05:22 MCHC 29.6 g/dL (31.6-35.5) L 08/30/17 05:22 RDW 15.1 % (11.5-14.5) H 08/30/17 05:22 ESR >= 130 mm/hr (0-15) H 08/29/17 16:06 H & H 08/30/17 Range/Units 05:22 Hgb 9.9 L (11.5-15.4) g/dL Hct 33.4 L (35.3-44.9) % All other labs normal. Consult Discharge Plan - Plan Referrals: Edouard Cole MD [Primary Care Provider] -
[2017-08-30] MEDS: Aspirin Enteric Coated 81 MG Tablet PO SCH (08:25)
[2017-08-30] MEDS: Diltiazem CD (24hr) 240 MG CAPSULE PO SCH (08:25)
[2017-08-30] MEDS: *HR* Digoxin 0.25 MG TABLET PO SCH (08:25)
[2017-08-30] MEDS: Furosemide 40 MG TABLET PO SCH ×2 (08:26→21:27)
[2017-08-30] MEDS: (Incruse Ellipta] 62.5 MCG) IH SCH (08:26)
[2017-08-30] MEDS: Simethicone 80 MG TAB.CHEW PO SCH ×3 (08:26→21:25)
[2017-08-30] MEDS: Budesonide/Formoterol 160/4.5 MDI IH SCH ×2 (08:56→22:17)
[2017-08-30] MEDS: Ipratropium/Albuterol Neb 3 ML IH SCH ×3 (08:56→22:17)
[2017-08-30] MEDS: Vancomycin 1,250 MG in D5% in Water 250 ML IVPB SCH ×2 (12:00→22:15)
--- NOTE | 2017-08-30 19:46 | Internal Med Progress Note ---
Date of Encounter: 08/30/17 Time of Encounter: 19:43 - Assessment and plan (1) Cellulitis of left knee Current Visit: Yes Status: Chronic Assessment and plan: Acute cellulitis of the left knee Hold Eliquis for surgical procedure Continue vancomycin day 2, stop Zosyn and start cefepime Scheduled to have surgical revision by the orthopedic surgical services Send left knee wound culture (2) COPD (chronic obstructive pulmonary disease) Current Visit: No Status: Chronic Assessment and plan: Stable, no exacerbation Qualifiers: COPD type: unspecified COPD Qualified Code(s): J44.9 - Chronic obstructive pulmonary disease, unspecified (3) Afib Current Visit: No Status: Chronic Assessment and plan: Continue digoxin, diltiazem takes Eliquis at home Qualifiers: Atrial fibrillation type: chronic Qualified Code(s): I48.2 - Chronic atrial fibrillation (4) Morbid obesity with BMI of 50.0-59.9, adult Current Visit: No Status: Chronic (5) History of total knee arthroplasty Current Visit: Yes Status: Chronic Qualifiers: Laterality: left Qualified Code(s): Z96.652 - Presence of left artificial knee joint - Subjective Interval history: Continues to complain about pain in the left knee, no fevers, chest pain or shortness of breath, no abdominal pain or dysuria - Constitutional Vitals: Temp Pulse Resp BP Pulse Ox 99.0 F 98 18 103/58 96 08/30/17 18:48 08/30/17 18:48 08/30/17 18:48 08/30/17 18:48 08/30/17 18:48 General appearance: Present: A&O X 3, morbidly obese, no acute distress, answers questions appropriately - Head Head exam: Present: atraumatic, normocephalic - Eye Eye exam: Present: PERRL, conjuntiva pink, sclera anicteric Pupils: Present: PERRL - Neck Neck exam general surgery: Present: supple, trachea midline. Absent: lymphadenopathy - Respiratory Respiratory exam: Present: CTAB. Absent: accessory muscle use, rales, rhonchi, wheezes - Cardiovascular Cardiovascular exam: Present: RRR, +S1, +S2. Absent: diastolic murmur, gallop, rubs, systolic murmur - GI/Abdominal GI/Abdominal exam: Present: normal bowel sounds, soft, no peritoneal signs. Absent: distended, tenderness - Extremities Exam Extremities exam: Present: warm, radial pulses palpable and symmetrical. Absent : calf tenderness, cyanotic, pedal edema Additional comments: Left knee anterior surgical wound draining purulent material, surrounding erythema - Neurological Exam Neurological exam: Present: CN II-XII intact, oriented X3, no focal deficits. Absent: pronater drift, facial droop, speech deficit - Skin Skin exam: Present: dry, intact Internal Medicine: Result - Labs CBC & Chem 7: 08/30/17 05:22 08/30/17 05:22 Labs: Short CBC 08/30/17 Range/Units 05:22 WBC 7.7 (4.3-11.1) K/mcL Hgb 9.9 L (11.5-15.4) g/dL Hct 33.4 L (35.3-44.9) % Plt Count 360 (140-400) K/mcL Neutrophils # 5.2 (1.6-8.9) K/mcL BMP 08/30/17 05:22 Sodium 136 Potassium 3.9 Chloride 105 Carbon Dioxide 26 BUN 13 Creatinine 0.69 Glucose 90 Calcium 8.7 Consult Discharge Plan - Plan Referrals: Edouard Cole MD [Primary Care Provider] -
[2017-08-30] MEDS: Cefepime HCl 1,000 MG in Water for inj. (sterile) 10 ML IVPB SCH (21:26)
[2017-08-31 05:26] LABS: Hematocrit 32.1 % (35.3-44.9); Hemoglobin 9.6 g/dL (11.5-15.4); Mean Corpuscular HGB Conc 29.9 g/dL (31.6-35.5); Mean Corpuscular Hemoglobin 24.7 pg (28.0-33.3); Mean Corpuscular Volume 82.5 fL (83.0-100.0); Mean Platelet Volume 9.8 fL (9.4-12.4); Platelet Count 344 K/mcL (140-400); Red Blood Count 3.89 M/mcL (3.82-4.97); Red Cell Distribution Width 15.2 % (11.5-14.5)
[2017-08-31 05:55] LABS: BUN/Creatinine Ratio 16 (6-26); Blood Urea Nitrogen 12 mg/dL (8-23); Calcium 8.7 mg/dL (8.6-10.3); Carbon Dioxide 28 mEq/L (23-29); Chloride 104 mEq/L (98-107); Glucose 108 mg/dL (70-105); Osmolality,Calculated 284 (280-300); Potassium 4.3 mEq/L (3.5-5.1); Sodium 137 mEq/L (136-145); eGFR For African Americans > 60 (> 60); eGFR For Non-African Americans > 60 (> 60)
[2017-08-31] MEDS: Cefepime HCl 1,000 MG in Water for inj. (sterile) 10 ML IVPB SCH ×2 (06:32→17:34)
--- NOTE | 2017-08-31 07:37 | Internal Med Progress Note ---
Date of Encounter: 08/31/17 Time of Encounter: 07:35 - Assessment and plan (1) Cellulitis of left knee Current Visit: Yes Status: Chronic Assessment and plan: Acute cellulitis of the left knee Hold Eliquis for surgical procedure Continue vancomycin day 3, stopped Zosyn at day 2 Continue cefepime day 2 Scheduled to have surgical revision by the orthopedic surgical services likely in the morning Send a left knee wound culture (2) COPD (chronic obstructive pulmonary disease) Current Visit: No Status: Chronic Assessment and plan: Stable, no exacerbation Qualifiers: COPD type: unspecified COPD Qualified Code(s): J44.9 - Chronic obstructive pulmonary disease, unspecified (3) Afib Current Visit: No Status: Chronic Assessment and plan: Continue digoxin, diltiazem takes Eliquis at home Qualifiers: Atrial fibrillation type: chronic Qualified Code(s): I48.2 - Chronic atrial fibrillation (4) Morbid obesity with BMI of 50.0-59.9, adult Current Visit: No Status: Chronic (5) History of total knee arthroplasty Current Visit: Yes Status: Chronic Qualifiers: Laterality: left Qualified Code(s): Z96.652 - Presence of left artificial knee joint - Subjective Interval history: Complaining of left knee pain 01/28, no fevers, chest pain or shortness of breath , no abdominal pain or dysuria - Constitutional Vitals: Temp Pulse Resp BP Pulse Ox 98.1 F 95 18 119/76 97 08/31/17 03:12 08/31/17 03:12 08/31/17 03:12 08/31/17 03:12 08/31/17 03:12 General appearance: Present: A&O X 3, morbidly obese, no acute distress, answers questions appropriately Exam: - Head Head exam: Present: atraumatic, normocephalic - Eye Eye exam: Present: PERRL, conjuntiva pink, sclera anicteric Pupils: Present: PERRL - Neck Neck exam general surgery: Present: supple, trachea midline. Absent: lymphadenopathy - Respiratory Respiratory exam: Present: CTAB. Absent: accessory muscle use, rales, rhonchi, wheezes - Cardiovascular Cardiovascular exam: Present: RRR, +S1, +S2. Absent: diastolic murmur, gallop, rubs, systolic murmur - GI/Abdominal GI/Abdominal exam: Present: normal bowel sounds, soft, no peritoneal signs. Absent: distended, tenderness - Extremities Exam Extremities exam: Present: warm, radial pulses palpable and symmetrical. Absent : calf tenderness, cyanotic, pedal edema Additional comments: Left knee anterior surgical wound draining purulent material, surrounding erythema - Neurological Exam Neurological exam: Present: CN II-XII intact, oriented X3, no focal deficits. Absent: pronater drift, facial droop, speech deficit - Skin Skin exam: Present: dry, intact Internal Medicine: Result - Labs CBC & Chem 7: 08/31/17 04:38 08/31/17 04:38 Labs: Short CBC 08/30/17 08/31/17 Range/Units 05:22 04:38 WBC 7.7 7.6 (4.3-11.1) K/mcL Hgb 9.9 L 9.6 L (11.5-15.4) g/dL Hct 33.4 L 32.1 L (35.3-44.9) % Plt Count 360 344 (140-400) K/mcL Neutrophils # 5.2 (1.6-8.9) K/mcL BMP 08/31/17 04:38 Sodium 137 Potassium 4.3 Chloride 104 Carbon Dioxide 28 BUN 12 Creatinine 0.74 Glucose 108 H Calcium 8.7 - VTE Documentation of Mechanical Device: Intermittent pneumatic compression device Consult Discharge Plan - Plan Referrals: Edouard Cole MD [Primary Care Provider] -
[2017-08-31] MEDS: Ipratropium/Albuterol Neb 3 ML IH SCH ×3 (07:47→23:05)
[2017-08-31] MEDS: Budesonide/Formoterol 160/4.5 MDI IH SCH ×2 (07:47→23:05)
[2017-08-31] MEDS: Aspirin Enteric Coated 81 MG Tablet PO SCH (07:55)
[2017-08-31] MEDS: Simethicone 80 MG TAB.CHEW PO SCH ×3 (07:55→19:57)
[2017-08-31] MEDS: Diltiazem CD (24hr) 240 MG CAPSULE PO SCH (07:55)
[2017-08-31] MEDS: *HR* Digoxin 0.25 MG TABLET PO SCH (07:55)
[2017-08-31] MEDS: Furosemide 40 MG TABLET PO SCH ×2 (07:56→19:58)
[2017-08-31] MEDS: *HR* HYDROcodone/Acet 5/325 mg TABLET PO PRN ×3 (07:59→22:53)
--- NOTE | 2017-08-31 08:32 | Orthopedics Progress Note ---
Date of Encounter: 08/31/17 Time of Encounter: 08:31 Subjective Interval history: Patient seen this morning small open area over left knee. Uncertain if this communicates with the knee joint. Draining purulent material. Patient has a history of infected total knee in the past with spacer. Recommendation is for irrigation debridement of left knee with possible revision depending on intraoperative findings. This was discussed with the patient questions answered. Patient is on the schedule for tomorrow. Patient is not septic. We reviewed the risks and benefits as well as recovery. All questions were answered. The patient agreed to this treatment plan and appeared to understand the plan is reviewed. Objective Vital signs: Vital Signs Temp Pulse Resp BP Pulse Ox 08/31/17 08:04 98 08/31/17 07:31 98.9 F 90 16 130/79 98 08/31/17 03:12 98.1 F 95 18 119/76 97 08/31/17 01:13 98.5 F 87 18 139/75 94 08/30/17 22:17 19 96 08/30/17 18:48 99.0 F 98 18 103/58 96 08/30/17 16:22 18 98 08/30/17 15:54 98.4 F 70 17 112/74 98 08/30/17 11:20 98.7 F 85 18 112/69 98 08/30/17 08:56 16 98 Intake and Output 08/30/17 08/31/17 08/31/17 23:59 07:59 15:59 Intake Total 210 / 210 Balance 210 / 210 Intake: IV Fluids 210 / 210 Maxipime 1,000 MG In Water for inj. (sterile) 10 ML @ 150 mls/ hr IVPB Q12HR DAVID Rx#: [id number] Zosyn Premix 3.375 GM/200 ML 3. 200 / 200 375 gm In 200 ml @ 50 mls/hr IVPB Q8H DAVID Rx#:[id number] Other: Stool Size Small Stool Consistency formed Stool Color Green # Voids 1 1 1 Weight 123.8 kg Patient Weight 08/31/17 23:59 Weight 123.8 kg - Labs CBC & BMP: 08/31/17 04:38 08/31/17 04:38 Labs: Abnormal lab results Hgb 9.6 g/dL (11.5-15.4) L 08/31/17 04:38 Hct 32.1 % (35.3-44.9) L 08/31/17 04:38 MCV 82.5 fL (83.0-100.0) L 08/31/17 04:38 MCH 24.7 pg (28.0-33.3) L 08/31/17 04:38 MCHC 29.9 g/dL (31.6-35.5) L 08/31/17 04:38 RDW 15.2 % (11.5-14.5) H 08/31/17 04:38 ESR >= 130 mm/hr (0-15) H 08/29/17 16:06 Glucose 108 mg/dL (70-105) H 08/31/17 04:38 - VTE Documentation of Mechanical Device: Intermittent pneumatic compression device Consult Discharge Plan - Plan Referrals: Edouard Cole MD [Primary Care Provider] -
[2017-08-31] MEDS: (Incruse Ellipta] 62.5 MCG) IH SCH (09:01)
[2017-08-31] MEDS: Nystatin POWDER 30 GM BOTTLE TP SCH ×3 (11:30→20:06)
[2017-08-31] MEDS: Vancomycin 1,250 MG in D5% in Water 250 ML IVPB SCH ×2 (11:30→22:52)
--- NOTE | 2017-09-01 00:02 | Anesthesia Evaluation PreOp ---
Date of Encounter: 09/01/17 Time of Encounter: 00:01 - Past History Planned Operation: L-total Knee revision re: non-healing Cardiac History: HTN (maintained on Lasix), Arrhythmia (anticoagulated on Eliquis, ASA. Maintained on Digoxin & Diltiazem rate/rythym control), Other ( ECHO 08/09/2017 - [id number] EV/EV echocardiogram Impressions: Technically sub- optimal due to poor echocardiographic windows. LVEF 50-55%. Not all segments were well visualized, but overall LVEF appears normal. Grossly normal LV chamber size, wall thickness and function. Indeterminate diastolic function. Right ventricle was not well visualized. Grossly, it is normal in size and function. Atypical septal motion consistent with bundle branch block. Right ventricle was not well visualized. Grossly, it is normal in size and function. Mild pulmonary hypertension. No obvious significant valvular dysfunction.) Pulmonary History: Former smoker, Asthma, COPD (maintiained on Albuterol, DuoNebs, INcruse ellipta, Home O2.), KELLY Dx LINE PILOT History: Other (Anxiety/Depression maintained on Celexa, WEllbutrin) Anesthesia History: No Prior Anesthetic Complications, Past Anesthesia (L-TKR ) Alcohol Use: none Drug use: none Medications and Allergies Albuterol Sulfate [Ventolin Hfa] 2 puff IH Q6H PRN 03/13/16 [History] Apixaban [Eliquis] 5 mg PO Q12H 03/13/16 [History] Aspirin Enteric Coated [Aspirin EC] 81 mg PO DAILY 03/13/16 [History] BuPROPion [Wellbutrin] 100 mg PO BID 03/13/16 [History] Calcium Carbonate/Vitamin D3 [Oyster Shell Calcium-Vit D Tab] 500 mg PO BID [History] Citalopram [CeleXA] 60 mg PO DAILY 03/13/16 [History] Digoxin [Lanoxin] 0.25 mg PO DAILY 03/13/16 [History] Ferrous Sulfate 325 mg PO BIDWM 03/13/16 [History] Umeclidinium [place] [Incruse Ellipta] 62.5 mcg IH DAILY 08/01/16 [History] Mv,Ca,Min/Iron Fum/FA/Lyco/Lut [Sentry Multivit & Mineral Cplt] 1 tab PO DAILY 10/12/16 [History] Omeprazole [PriLOSEC] 40 mg PO DAILY 10/12/16 [History] Oxygen 2 l NS AD PRN 10/12/16 [History] Diltiazem HCl [Diltiazem ER] 240 mg PO DAILY 05/03/17 [History] Furosemide [Lasix] 80 mg PO BID 05/03/17 [History] Budesonide/Formoterol 160/4.5 [Symbicort 160/4.5] 2 puff IH BIDR 06/19/17 [ History] Mupirocin [Bactroban Oint] 1 appl TP AD 08/08/17 [History] Acetaminophen [Tylenol] 650 mg PO Q6HR PRN #30 tablet 08/12/17 [Rx] Ipratropium/Albuterol Neb [Duoneb] 3 ml IH Q8HR #0 08/12/17 [Rx] Polyethylene Glycol 3350 [MiraLAX] 17 gm PO DAILY PRN powd.pack 08/12/17 [Rx] Potassium Chloride 20 meq PO BID #30 tab.er.prt 08/12/17 [Rx] Simethicone [Gas-X] 80 mg PO TID tab.chew 08/12/17 [Rx] Docusate [Colace] 100 mg PO BID PRN 08/29/17 [History] 3 Allergy/AdvReac Type Severity Reaction Status Date / Time lisinopril AdvReac Cough Verified 08/29/17 15:05 - Meds/Allergy Pre-op Review Medications Reviewed: Yes Allergies Reviewed: Yes Beta Blockers on Current Med List: No Anesthesia Results - Labs 08/31/17 04:38 08/31/17 04:38 Laboratory Results Impressions Knee X-Ray 08/29/17 15:06 IMPRESSION: Stable left knee arthroplasty. D/ / 08/29/2017 16:36:02 Sanket Lange MD / augustine Interpreting Provider: Sanket Lange MD Knee CT 08/29/17 20:57 IMPRESSION: 1. Re- demonstration of a long-stem revision arthroplasty and patellectomy without significant change when compared to previous CT dated 08/09/2017. No evidence of acute periprosthetic fracture or progressive lucency at the bone-cement interface. 2. Soft tissue thickening and/or fluid in the region of Hoffa's fat, which is similar to the previous study and could be related to postoperative change. Soft tissue gas was present in this location on the previous study but is not seen today. No organized peripherally enhancing fluid collection identified. No significant suprapatellar joint effusion. 3. Diffuse subcutaneous edema and skin thickening again noted, compatible with clinical history of cellulitis. D/ / Krystle Do / Krystle Do Interpreting Provider: Krystle Do Anesthesia Exam Vital Signs Temp Pulse Resp BP Pulse Ox 08/31/17 23:05 16 98 08/31/17 20:36 98.2 F 62 18 126/72 96 08/31/17 16:50 16 98 08/31/17 12:24 98.6 F 88 16 129/55 98 08/31/17 08:04 98 08/31/17 07:47 16 96 08/31/17 07:31 98.9 F 90 16 130/79 98 08/31/17 03:12 98.1 F 95 18 119/76 97 08/31/17 01:13 98.5 F 87 18 139/75 94 Intake and Output 08/31/17 08/31/17 09/01/17 15:59 23:59 07:59 Intake Total 250 / 250 480 / 480 Balance 250 / 250 480 / 480 Intake: IV Fluids 250 / 250 Vancocin 1,250 MG In Dextrose 5 250 / 250 % 250 ML @ 166.67 mls/hr IVPB Q12H DAVID Rx#:[id number] Oral 480 / 480 Other: Meal Dinner Percent of Meal Consumed 100% Stool Size Small Large Stool Consistency formed soft formed Stool Characteristics Normal for Patient Stool Color Green Jeffrey Colored # Voids 1 1 # Bowel Movements 2 Height: 5'2" Weight: 272# BMI = 50 NPO (# of Hours): MNoc - HEENT Pupil (Motor): Pupils equal, EOMI Mallampati: III Teeth: Edentulous Oral Opening: Greater than 3 - LINE PILOT LOC: Oriented LINE PILOT Motor: Normal RUE, Normal LUE, Normal RLE, Normal Face, Deficit LLE LINE PILOT Sensory: Normal: RUE, LUE, RLE, Face, Deficit: LLE - Cardiac Rhythm: Irregular Murmur: None - Pulmonary Breath Sounds: bilateral Clear Respiratory Effort: Symmetrical Anesthesia Assess/Plan ASA Score: 4 (MO/BMI = 50, AFib, HTN, Asthma/COPD, AFib, KELLY, Anxiety/Depression ) Modified Markell Scale for Level of Consciousness: Cooperative, oriented, and tranquil Anesthetic Plan: General Monitoring Plan: Standard Monitors Recovery Plan: PACU
[2017-09-01] MEDS: Cefepime HCl 1,000 MG in Water for inj. (sterile) 10 ML IVPB SCH (05:27)
[2017-09-01] MEDS: *HR* HYDROcodone/Acet 5/325 mg TABLET PO PRN ×2 (05:28→19:34)
--- NOTE | 2017-09-01 06:37 | Orthopedics Progress Note ---
Date of Encounter: 09/01/17 Time of Encounter: 06:37 Subjective Interval history: Patient for surgery today plan reviewed.. Objective Vital signs: Vital Signs Temp Pulse Resp BP Pulse Ox 09/01/17 02:13 98.9 F 104 17 113/74 94 09/01/17 00:00 98.9 F 92 14 118/76 97 08/31/17 23:05 16 98 08/31/17 20:36 98.2 F 62 18 126/72 96 08/31/17 16:50 16 98 08/31/17 12:24 98.6 F 88 16 129/55 98 08/31/17 08:04 98 08/31/17 07:47 16 96 08/31/17 07:31 98.9 F 90 16 130/79 98 Intake and Output 08/31/17 08/31/17 09/01/17 15:59 23:59 07:59 Intake Total 250 / 250 490 / 490 Output Total 400 / 400 Balance 250 / 250 490 / 490 -400 / -400 Intake: IV Fluids 250 / 250 Maxipime 1,000 MG In Water for inj. (sterile) 10 ML @ 150 mls/ hr IVPB Q12HR [facility] Rx#: [id number] Vancocin 1,250 MG In Dextrose 5 250 / 250 % 250 ML @ 166.67 mls/hr IVPB Q12H [facility] Rx#:[id number] Oral 480 / 480 Output: Urine 400 / 400 Other: Meal Dinner Percent of Meal Consumed 100% Stool Size Small Large Stool Consistency formed soft formed Stool Characteristics Normal for Patient Stool Color Green Jeffrey Colored # Voids 1 1 1 # Bowel Movements 2 - Labs CBC & BMP: 08/31/17 04:38 08/31/17 04:38 Labs: Abnormal lab results Hgb 9.6 g/dL (11.5-15.4) L 08/31/17 04:38 Hct 32.1 % (35.3-44.9) L 08/31/17 04:38 MCV 82.5 fL (83.0-100.0) L 08/31/17 04:38 MCH 24.7 pg (28.0-33.3) L 08/31/17 04:38 MCHC 29.9 g/dL (31.6-35.5) L 08/31/17 04:38 RDW 15.2 % (11.5-14.5) H 08/31/17 04:38 ESR >= 130 mm/hr (0-15) H 08/29/17 16:06 Glucose 108 mg/dL (70-105) H 08/31/17 04:38 C-Reactive Protein 77 mg/L (Less than 10) H 08/31/17 12:49 - VTE Documentation of Mechanical Device: Intermittent pneumatic compression device Consult Discharge Plan - Plan Referrals: Edouard Cole MD [Primary Care Provider] -
[2017-09-01] MEDS: Furosemide 40 MG TABLET PO SCH ×2 (07:23→19:39)
[2017-09-01] MEDS: Simethicone 80 MG TAB.CHEW PO SCH ×3 (07:23→19:35)
[2017-09-01] MEDS: (Incruse Ellipta] 62.5 MCG) IH SCH (07:23)
[2017-09-01] MEDS: Aspirin Enteric Coated 81 MG Tablet PO SCH (07:23)
[2017-09-01] MEDS: Budesonide/Formoterol 160/4.5 MDI IH SCH ×2 (07:40→22:55)
[2017-09-01] MEDS: Ipratropium/Albuterol Neb 3 ML IH SCH ×3 (07:40→22:55)
[2017-09-01] MEDS ORDERED: Povidone-Iodine 22.5 ML, Sodium Chloride IRRigation 500 ML IR ONE ×2 (08:00→17:45)
[2017-09-01] MEDS: Nystatin POWDER 30 GM BOTTLE TP SCH ×3 (08:09→19:34)
[2017-09-01] MEDS: Diltiazem CD (24hr) 240 MG CAPSULE PO SCH (08:11)
[2017-09-01] MEDS: *HR* Digoxin 0.25 MG TABLET PO SCH (08:11)
[2017-09-01] MEDS: Vancomycin 1,250 MG in D5% in Water 250 ML IVPB SCH ×2 (10:47→22:39)
[2017-09-01] MEDS ORDERED: Lidocaine -MPF 4% 5 ML AMPUL ONE (15:00)
[2017-09-01] MEDS ORDERED: *HR* FentaNYL (PF) 100 MCG/2 ML VIAL ONE (15:02)
[2017-09-01] MEDS ORDERED: Lidocaine -MPF 2% 2 ML VIAL ONE (15:02)
[2017-09-01] MEDS ORDERED: Ondansetron 4 MG/2 ML VIAL ONE (15:02)
[2017-09-01] MEDS ORDERED: *HR* Midazolam HCl 2 MG/2 ML VIAL ONE (15:02)
[2017-09-01] MEDS ORDERED: *HR* Propofol 200 MG/20 ML VIAL IVP ONE (15:02)
[2017-09-01] MEDS ORDERED: Dexamethasone 4 MG/ML VIAL ONE (15:02)
[2017-09-01] MEDS ORDERED: Ethanol\\Acetic Acid\\Na Ace\\Ben 1,000 ML IRRIG.SOLN IR ONE ×2 (15:41→15:42)
[2017-09-01] MEDS ORDERED: Naloxone 0.4 MG/ML INJ IVP PRN ×2 (15:49→17:45)
[2017-09-01] MEDS ORDERED: Ondansetron 4 MG/2 ML VIAL IVP ONE (15:49)
[2017-09-01] MEDS ORDERED: Ringers Solution, Lactated 1,000 ML IVC SCH ×2 (16:00→17:45)
[2017-09-01] MEDS: Albuterol 2.5 MG/3 ML NEBULIZER IH ONE ×2 (16:18→17:08)
[2017-09-01] MEDS: *HR* HYDROmorphone (PF) 1 MG/ML SYRINGE IVP PRN ×2 (17:06→17:11)
--- NOTE | 2017-09-01 17:22 | Orthopedic Operative Note ---
Date of procedure: 09/01/17 Pre-op diagnosis: Infected left total knee Post-op diagnosis: same Procedure: Procedure: Left knee arthrotomy irrigation debridement extensive synovectomy. Estimated blood loss 200 mL Procedure: Patient brought to the operating room placed on the operating table after general anesthesia was administered left knee was examined patient had a half centimeter hole draining. The left lower extremity was prepped and draped in sterile surgical fashion patient received IV antibiotics prior skin incision. An elliptical incision was made around the draining sinus. Along the length of the previous incision. Incision made through the skin and subcutaneous tissue. Hemostasis was obtained with cautery. The sinus tract tracked into the knee joint. A medial arthrotomy was performed and extensive synovectomy was performed the knee was irrigated with antibacterial solution. It was then irrigated with 3 L of pulse irrigation. More extensive debridement was performed the knee sat for 2 minutes with a Betadine saline solution. It was then irrigated again with another liter of antibacterial solution followed by 3 L of pulse irrigation. The extensor mechanism was closed over a ANITA drain with a running #2 PDS suture. The subcutaneous tissues closed with #1 PDS suture superficially with skin zuleika. Patient placed sterile dressing postoperative brace extubated and transferred to recovery room stable condition. Anesthesia: GETA Surgeon: Isai Castanon Was there an customer care assistant present: No Estimated blood loss (cc): 200 Condition: stable Disposition: PACU
--- NOTE | 2017-09-01 17:39 | Anesthesia Evaluation Post Op ---
Date of Encounter: 09/01/17 Time of Encounter: 17:38 - Vital Signs Vital Signs: Vital Signs/O2 Sat, Most Current Temp Pulse Resp BP Pulse Ox 99.5 F 98 14 136/79 94 09/01/17 17:03 09/01/17 17:23 09/01/17 17:23 09/01/17 17:23 09/01/17 17:23 - Lungs Lungs: Clear Ascult./Percussion - Airway Airway: Non-obstructed - Cardiovascular Regular Rate, Irregular Rate (history of atrial fib) - Mental Status Mental Status: Alert & Oriented, Answers Appropriately, Baseline Status - Pain Pain Scale: 8 (dilaudid given) Pain Scale used: Numeric (1 - 10) - Nausea Vomiting Nausea Vomiting: Not Present - Hydration Hydration: Ice chips, Has not voided - Discharge PostOp Status: Transfer Patient to floor
--- NOTE | 2017-09-01 17:42 | Internal Med Progress Note ---
Date of Encounter: 09/01/17 Time of Encounter: 17:40 - Assessment and plan (1) Cellulitis of left knee Current Visit: Yes Status: Chronic Assessment and plan: Acute cellulitis of the left knee Hold Eliquis for now Continue vancomycin day 4, stopped Zosyn at day 2 Continue cefepime day 3, may discontinue Had an incision and drainage today Orthopedic surgery recommendations appreciated wound culture growing a gram-positive cocci (2) COPD (chronic obstructive pulmonary disease) Current Visit: No Status: Chronic Assessment and plan: Stable, no exacerbation Qualifiers: COPD type: unspecified COPD Qualified Code(s): J44.9 - Chronic obstructive pulmonary disease, unspecified (3) Afib Current Visit: No Status: Chronic Assessment and plan: Continue digoxin, diltiazem takes Eliquis at home Qualifiers: Atrial fibrillation type: chronic Qualified Code(s): I48.2 - Chronic atrial fibrillation (4) Morbid obesity with BMI of 50.0-59.9, adult Current Visit: No Status: Chronic (5) History of total knee arthroplasty Current Visit: Yes Status: Chronic Qualifiers: Laterality: left Qualified Code(s): Z96.652 - Presence of left artificial knee joint (6) Chronic diastolic CHF (congestive heart failure) Current Visit: Yes Status: Acute Assessment and plan: No exacerbation - Subjective Interval history: Complaining of minimal left knee pain after incision and drainage, no fevers, chest pain or shortness of breath, no abdominal pain or dysuria - Constitutional Vitals: Temp Pulse Resp BP Pulse Ox 99.0 F 93 14 124/84 94 09/01/17 17:33 09/01/17 17:33 09/01/17 17:33 09/01/17 17:33 09/01/17 17:33 General appearance: Present: A&O X 3, morbidly obese, no acute distress, answers questions appropriately Exam: - Head Head exam: Present: atraumatic, normocephalic - Eye Eye exam: Present: PERRL, conjuntiva pink, sclera anicteric Pupils: Present: PERRL - Neck Neck exam general surgery: Present: supple, trachea midline. Absent: lymphadenopathy - Respiratory Respiratory exam: Present: CTAB. Absent: accessory muscle use, rales, rhonchi, wheezes - Cardiovascular Cardiovascular exam: Present: RRR, +S1, +S2. Absent: diastolic murmur, gallop, rubs, systolic murmur - GI/Abdominal GI/Abdominal exam: Present: normal bowel sounds, soft, no peritoneal signs. Absent: distended, tenderness - Extremities Exam Extremities exam: Present: warm, radial pulses palpable and symmetrical. Absent : calf tenderness, cyanotic, pedal edema Additional comments: Left knee anterior surgical wound draining purulent material, surrounding erythema - Neurological Exam Neurological exam: Present: CN II-XII intact, oriented X3, no focal deficits. Absent: pronater drift, facial droop, speech deficit - Skin Skin exam: Present: dry, intact Internal Medicine: Result - Labs CBC & Chem 7: 08/31/17 04:38 08/31/17 04:38 - VTE Documentation of Mechanical Device: Intermittent pneumatic compression device Consult Discharge Plan - Plan Referrals: Edouard Cole MD [Primary Care Provider] -
[2017-09-01] MEDS ORDERED: Sennosides 8.6 MG TABLET PO PRN (17:45)
[2017-09-01] MEDS ORDERED: Ondansetron 4 MG/2 ML VIAL IVP PRN (17:45)
[2017-09-01] MEDS ORDERED: MOM Conc 10 ML UD.LIQ PO PRN (17:45)
[2017-09-01] MEDS ORDERED: Temazepam 15 MG CAPSULE PO PRN (17:45)
[2017-09-01] MEDS ORDERED: *HR* Morphine 2 MG/ML SYRINGE IVP PRN (17:45)
[2017-09-01] MEDS ORDERED: Acetaminophen 325 MG TABLET PO PRN (17:45)
[2017-09-01] MEDS: Cefepime HCl 1,000 MG in Water for inj. (sterile) 20 ML 10 ML IVP SCH (18:03)
[2017-09-02 03:14] LABS: Hematocrit 32.9 % (35.3-44.9); Hemoglobin 9.9 g/dL (11.5-15.4)
[2017-09-02 03:24] LABS: BUN/Creatinine Ratio 15 (6-26); Blood Urea Nitrogen 11 mg/dL (8-23); Calcium 9.1 mg/dL (8.6-10.3); Carbon Dioxide 30 mEq/L (23-29); Chloride 100 mEq/L (98-107); Glucose 236 mg/dL (70-105); Osmolality,Calculated 285 (280-300); Potassium 5.1 mEq/L (3.5-5.1); Sodium 134 mEq/L (136-145); eGFR For African Americans > 60 (> 60); eGFR For Non-African Americans > 60 (> 60)
[2017-09-02] MEDS: *HR* HYDROcodone/Acet 5/325 mg TABLET PO PRN ×4 (03:46→22:17)
[2017-09-02] MEDS: Cefepime HCl 1,000 MG in Water for inj. (sterile) 20 ML 10 ML IVP SCH (05:29)
[2017-09-02] MEDS: Ipratropium/Albuterol Neb 3 ML IH SCH ×3 (08:10→23:46)
[2017-09-02] MEDS: Budesonide/Formoterol 160/4.5 MDI IH SCH ×2 (08:14→23:47)
[2017-09-02] MEDS: (Incruse Ellipta] 62.5 MCG) IH SCH (08:36)
[2017-09-02] MEDS: Aspirin Enteric Coated 81 MG Tablet PO SCH (08:38)
[2017-09-02] MEDS: Simethicone 80 MG TAB.CHEW PO SCH ×3 (08:39→19:41)
[2017-09-02] MEDS: *HR* Digoxin 0.25 MG TABLET PO SCH (08:39)
[2017-09-02] MEDS: Furosemide 40 MG TABLET PO SCH ×2 (08:39→17:45)
[2017-09-02] MEDS: Diltiazem CD (24hr) 240 MG CAPSULE PO SCH (08:39)
[2017-09-02] MEDS: Nystatin POWDER 30 GM BOTTLE TP SCH ×3 (10:00→19:43)
[2017-09-02] MEDS: Vancomycin 1,250 MG in D5% in Water 250 ML IVPB SCH ×2 (12:15→22:17)
--- NOTE | 2017-09-02 14:40 | Internal Med Progress Note ---
Date of Encounter: 09/02/17 Time of Encounter: 14:38 - Assessment and plan (1) Cellulitis of left knee Current Visit: Yes Status: Chronic Assessment and plan: Acute cellulitis of the left knee status post incision and drainage on September 01 2017 Hold Eliquis until we are sure that no further surgery is needed Continue vancomycin day 5, stopped Zosyn at day 2 Discontinue cefepime day 4 Orthopedic surgery recommendations appreciated, to consider switching antibiotic therapy wound culture growing MRSA again resistant to clindamycin, erythromycin and oxacillin (2) COPD (chronic obstructive pulmonary disease) Current Visit: No Status: Chronic Assessment and plan: Stable, no exacerbation Qualifiers: COPD type: unspecified COPD Qualified Code(s): J44.9 - Chronic obstructive pulmonary disease, unspecified (3) Afib Current Visit: No Status: Chronic Assessment and plan: Continue digoxin, diltiazem takes Eliquis at home Qualifiers: Atrial fibrillation type: chronic Qualified Code(s): I48.2 - Chronic atrial fibrillation (4) Morbid obesity with BMI of 50.0-59.9, adult Current Visit: No Status: Chronic (5) History of total knee arthroplasty Current Visit: Yes Status: Chronic Qualifiers: Laterality: left Qualified Code(s): Z96.652 - Presence of left artificial knee joint (6) Chronic diastolic CHF (congestive heart failure) Current Visit: Yes Status: Acute Assessment and plan: No exacerbation - Subjective Interval history: No new events or complaints overnight. Complaining of minimal left knee pain after incision and drainage, no fevers, chest pain or shortness of breath, no abdominal pain or dysuria - Constitutional Vitals: Temp Pulse Resp BP Pulse Ox 99.0 F 78 18 103/64 94 09/02/17 11:26 09/02/17 11:26 09/02/17 11:26 09/02/17 11:26 09/02/17 08:15 General appearance: Present: A&O X 3, morbidly obese, no acute distress, answers questions appropriately Exam: Head Head exam: Present: atraumatic, normocephalic - Eye Eye exam: Present: PERRL, conjuntiva pink, sclera anicteric Pupils: Present: PERRL - Neck Neck exam general surgery: Present: supple, trachea midline. Absent: lymphadenopathy - Respiratory Respiratory exam: Present: CTAB. Absent: accessory muscle use, rales, rhonchi, wheezes - Cardiovascular Cardiovascular exam: Present: RRR, +S1, +S2. Absent: diastolic murmur, gallop, rubs, systolic murmur - GI/Abdominal GI/Abdominal exam: Present: normal bowel sounds, soft, no peritoneal signs. Absent: distended, tenderness - Extremities Exam Extremities exam: Present: warm, radial pulses palpable and symmetrical. Absent : calf tenderness, cyanotic, pedal edema Additional comments: Left knee anterior surgical wound draining sanguinous material through drained, covered with dressing - Neurological Exam Neurological exam: Present: CN II-XII intact, oriented X3, no focal deficits. Absent: pronater drift, facial droop, speech deficit - Skin Skin exam: Present: dry, intact Internal Medicine: Result - Labs CBC & Chem 7: 09/02/17 02:24 09/02/17 02:24 Labs: Short CBC 09/02/17 Range/Units 02:24 Hgb 9.9 L (11.5-15.4) g/dL Hct 32.9 L (35.3-44.9) % BMP 09/02/17 02:24 Sodium 134 L Potassium 5.1 Chloride 100 Carbon Dioxide 30 H BUN 11 Creatinine 0.74 Glucose 236 H Calcium 9.1 - VTE Documentation of Mechanical Device: Venous foot pump, device Consult Discharge Plan - Plan Referrals: Edouard Cole MD [Primary Care Provider] -
--- NOTE | 2017-09-02 15:40 | Orthopedics Progress Note ---
Date of Encounter: 09/02/17 Time of Encounter: 15:37 Subjective Principal diagnosis: Infected L TKA Interval history: Patient comfortable without complaints Left lower extremity: Knee immobilizer in place, dressings are clean dry and intact Bilateral calves are soft and nontender, chronic edema changes both legs. Grossly neurovascularly intact Assessment: Postoperative day #1 status post left knee I&D Plan continue IV antibiotics Plan for discharge with IV antibiotics DVT prophylaxis Ambulation with therapy Objective Vital signs: Vital Signs Temp Pulse Resp BP Pulse Ox 09/02/17 11:26 99.0 F 78 18 103/64 09/02/17 08:15 16 94 09/02/17 08:09 98.0 F 116 18 134/82 09/02/17 04:30 97.6 F 97 18 135/65 97 09/01/17 22:58 18 97 09/01/17 22:51 98.9 F 83 16 133/92 95 09/01/17 21:00 98.9 F 87 16 135/86 95 09/01/17 20:00 98.9 F 98 16 143/82 96 09/01/17 19:00 99.0 F 99 16 136/81 95 09/01/17 18:28 99.0 F 99 16 144/88 92 09/01/17 18:00 98.0 F 101 16 146/79 92 09/01/17 17:43 99.0 F 98 15 136/87 94 09/01/17 17:33 99.0 F 93 14 124/84 94 09/01/17 17:23 98 14 136/79 94 09/01/17 17:13 97 13 135/71 97 09/01/17 17:03 99.5 F 125 10 135/90 100 Intake and Output 09/01/17 09/02/17 09/02/17 23:59 07:59 15:59 Intake Total 160 / 160 260 / 260 Output Total 380 / 380 390 / 390 300 / 300 Balance -220 / -220 -130 / -130 -300 / -300 Intake: IV Fluids 260 / 260 Maxipime 1,000 MG In Water for inj. (sterile) 10 ML @ 150 mls/ hr IVP Q12HR [facility] Rx#:[id number] Vancocin 1,250 MG In Dextrose 5 250 / 250 % 250 ML @ 166.67 mls/hr IVPB Q12H [facility] Rx#:[id number] Oral 150 / 150 Output: Urine 0 / 0 350 / 350 300 / 300 Estimated Blood Loss 300 / 300 Wound Drainage 80 / 80 40 / 40 Left Knee 40 / 40 40 / 40 Other: Stool Size Small Stool Consistency soft formed Stool Characteristics Normal for Patient Stool Color Brown # Voids 1 1 # Bowel Movements 1 - Labs CBC & BMP: 09/02/17 02:24 09/02/17 02:24 Labs: Abnormal lab results Hgb 9.9 g/dL (11.5-15.4) L 09/02/17 02:24 Hct 32.9 % (35.3-44.9) L 09/02/17 02:24 MCV 82.5 fL (83.0-100.0) L 08/31/17 04:38 MCH 24.7 pg (28.0-33.3) L 08/31/17 04:38 MCHC 29.9 g/dL (31.6-35.5) L 08/31/17 04:38 RDW 15.2 % (11.5-14.5) H 08/31/17 04:38 ESR >= 130 mm/hr (0-15) H 08/29/17 16:06 Sodium 134 mEq/L (136-145) L 09/02/17 02:24 Carbon Dioxide 30 mEq/L (23-29) H 09/02/17 02:24 Glucose 236 mg/dL (70-105) H 09/02/17 02:24 C-Reactive Protein 77 mg/L (Less than 10) H 08/31/17 12:49 - VTE Documentation of Mechanical Device: Venous foot pump, device Consult Discharge Plan - Plan Referrals: Edouard Cole MD [Primary Care Provider] -
[2017-09-03 04:03] LABS: BUN/Creatinine Ratio 19 (6-26); Blood Urea Nitrogen 18 mg/dL (8-23); Calcium 8.9 mg/dL (8.6-10.3); Carbon Dioxide 32 mEq/L (23-29); Chloride 99 mEq/L (98-107); Glucose 144 mg/dL (70-105); Osmolality,Calculated 286 (280-300); Potassium 4.6 mEq/L (3.5-5.1); Sodium 136 mEq/L (136-145); eGFR For African Americans > 60 (> 60); eGFR For Non-African Americans 60 (> 60)
[2017-09-03] MEDS: *HR* HYDROcodone/Acet 5/325 mg TABLET PO PRN ×3 (04:05→23:33)
[2017-09-03] MEDS: (Incruse Ellipta] 62.5 MCG) IH SCH (07:56)
[2017-09-03] MEDS: Ipratropium/Albuterol Neb 3 ML IH SCH ×3 (07:56→23:17)
[2017-09-03] MEDS: Budesonide/Formoterol 160/4.5 MDI IH SCH ×2 (07:56→23:17)
[2017-09-03] MEDS: Nystatin POWDER 30 GM BOTTLE TP SCH ×3 (08:05→20:27)
[2017-09-03] MEDS: Aspirin Enteric Coated 81 MG Tablet PO SCH (08:07)
[2017-09-03] MEDS: Furosemide 40 MG TABLET PO SCH ×2 (08:07→17:39)
[2017-09-03] MEDS: Simethicone 80 MG TAB.CHEW PO SCH ×3 (08:08→20:27)
[2017-09-03] MEDS: Diltiazem CD (24hr) 240 MG CAPSULE PO SCH (08:08)
[2017-09-03] MEDS: *HR* Digoxin 0.25 MG TABLET PO SCH (08:08)
--- NOTE | 2017-09-03 11:02 | Orthopedics Progress Note ---
Date of Encounter: 09/03/17 Time of Encounter: 11:00 Subjective Principal diagnosis: Infected L TKA Interval history: Patient comfortable without complaints. Sitting up in chair Left lower extremity: Knee immobilizer in place, dressings are clean dry and intact Bilateral calves are soft and nontender, chronic edema changes both legs. Grossly neurovascularly intact Drain output: 35 mL Assessment: Postoperative day #2 status post left knee I&D Plan continue IV antibiotics PICC line tomorrow We will keep drain in for one more day Plan for discharge tomorrow with home IV antibiotics DVT prophylaxis Ambulation with therapy Objective Vital signs: Vital Signs Temp Pulse Resp BP Pulse Ox 09/03/17 07:57 16 98 09/03/17 06:41 98.7 F 84 16 127/63 98 09/03/17 00:21 99.0 F 87 18 123/52 97 09/02/17 23:49 14 99 09/02/17 19:43 99.0 F 98 18 100/69 93 09/02/17 16:58 18 94 09/02/17 16:30 99.1 F 86 18 117/55 09/02/17 11:26 99.0 F 78 18 103/64 Intake and Output 09/02/17 09/03/17 09/03/17 23:59 07:59 15:59 Intake Total 1490 / 1490 250 / 250 Output Total 320 / 320 635 / 635 Balance 1170 / 1170 -385 / -385 Intake: IV Fluids 1250 / 1250 250 / 250 Lactated Ringers 1,000 ML @ 75 1000 / 1000 mls/hr IVC .[id number] [facility] Rx#: [id number] Vancocin 1,250 MG In Dextrose 5 250 / 250 250 / 250 % 250 ML @ 166.67 mls/hr IVPB Q12H [facility] Rx#:[id number] Oral 240 / 240 Output: Urine 300 / 300 600 / 600 Wound Drainage 20 / 20 35 / 35 Left Knee 20 / 20 35 / 35 Other: # Voids 1 # Urine Diapers 1 - Labs CBC & BMP: 09/03/17 03:11 09/03/17 03:11 Labs: Abnormal lab results Hgb 9.0 g/dL (11.5-15.4) L 09/03/17 03:11 Hct 30.0 % (35.3-44.9) L 09/03/17 03:11 MCV 82.5 fL (83.0-100.0) L 08/31/17 04:38 MCH 24.7 pg (28.0-33.3) L 08/31/17 04:38 MCHC 29.9 g/dL (31.6-35.5) L 08/31/17 04:38 RDW 15.2 % (11.5-14.5) H 08/31/17 04:38 ESR >= 130 mm/hr (0-15) H 08/29/17 16:06 Carbon Dioxide 32 mEq/L (23-29) H 09/03/17 03:11 Glucose 144 mg/dL (70-105) H 09/03/17 03:11 C-Reactive Protein 77 mg/L (Less than 10) H 08/31/17 12:49 - VTE Documentation of Mechanical Device: Venous foot pump, device Consult Discharge Plan - Plan Referrals: Edouard Cole MD [Primary Care Provider] -
[2017-09-03] MEDS: Vancomycin 1,250 MG in D5% in Water 250 ML IVPB SCH (11:43)
--- NOTE | 2017-09-03 15:11 | Internal Med Progress Note ---
Date of Encounter: 09/03/17 Time of Encounter: 15:08 - Assessment and plan (1) Cellulitis of left knee Current Visit: Yes Status: Chronic Assessment and plan: Acute cellulitis of the left knee status post incision and drainage on September 01 2017 Resume Eliquis Continue vancomycin day 6, stopped Zosyn at day 2 Discontinued cefepime at day 4 ID consult ( to follow as outpatient) Orthopedic surgery recommendations appreciated, to consider switching antibiotic therapy wound culture growing MRSA again resistant to clindamycin, erythromycin and oxacillin, consider Bactrim , doxycycline, levaquin as outpatient when ready to switch from IV abx (2) COPD (chronic obstructive pulmonary disease) Current Visit: No Status: Chronic Assessment and plan: Stable, no exacerbation Qualifiers: COPD type: unspecified COPD Qualified Code(s): J44.9 - Chronic obstructive pulmonary disease, unspecified (3) Afib Current Visit: No Status: Chronic Assessment and plan: Continue digoxin, diltiazem resume Eliquis Qualifiers: Atrial fibrillation type: chronic Qualified Code(s): I48.2 - Chronic atrial fibrillation (4) Morbid obesity with BMI of 50.0-59.9, adult Current Visit: No Status: Chronic (5) History of total knee arthroplasty Current Visit: Yes Status: Chronic Qualifiers: Laterality: left Qualified Code(s): Z96.652 - Presence of left artificial knee joint (6) Chronic diastolic CHF (congestive heart failure) Current Visit: Yes Status: Acute Assessment and plan: No exacerbation - Subjective Interval history: No complaints overnight. Complaining of minimal left knee pain after incision and drainage, no fevers, chest pain or shortness of breath, no abdominal pain or dysuria - Constitutional Vitals: Temp Pulse Resp BP Pulse Ox 98.8 F 86 16 149/77 96 09/03/17 12:00 09/03/17 12:00 09/03/17 12:00 09/03/17 12:00 09/03/17 12:00 General appearance: Present: A&O X 3, morbidly obese, no acute distress, answers questions appropriately Exam: Head Head exam: Present: atraumatic, normocephalic - Eye Eye exam: Present: PERRL, conjuntiva pink, sclera anicteric Pupils: Present: PERRL - Neck Neck exam general surgery: Present: supple, trachea midline. Absent: lymphadenopathy - Respiratory Respiratory exam: Present: CTAB. Absent: accessory muscle use, rales, rhonchi, wheezes - Cardiovascular Cardiovascular exam: Present: RRR, +S1, +S2. Absent: diastolic murmur, gallop, rubs, systolic murmur - GI/Abdominal GI/Abdominal exam: Present: normal bowel sounds, soft, no peritoneal signs. Absent: distended, tenderness - Extremities Exam Extremities exam: Present: warm, radial pulses palpable and symmetrical. Absent : calf tenderness, cyanotic, pedal edema Additional comments: Left knee anterior surgical wound draining sanguinous material through drained, covered with dressing - Neurological Exam Neurological exam: Present: CN II-XII intact, oriented X3, no focal deficits. Absent: pronater drift, facial droop, speech deficit - Skin Skin exam: Present: dry, intact Internal Medicine: Result - Labs CBC & Chem 7: 09/03/17 03:11 09/03/17 03:11 Labs: Short CBC 09/03/17 Range/Units 03:11 Hgb 9.0 L (11.5-15.4) g/dL Hct 30.0 L (35.3-44.9) % BMP 09/03/17 03:11 Sodium 136 Potassium 4.6 Chloride 99 Carbon Dioxide 32 H BUN 18 Creatinine 0.94 Glucose 144 H Calcium 8.9 - VTE Documentation of Mechanical Device: Venous foot pump, device Consult Discharge Plan - Plan Referrals: Edouard Cole MD [Primary Care Provider] -
[2017-09-03] MEDS: Apixaban 5 MG TABLET PO SCH (17:39)
[2017-09-04] MEDS: Apixaban 5 MG TABLET PO SCH ×2 (02:40→15:08)
[2017-09-04 02:57] LABS: Hematocrit 30.2 % (35.3-44.9); Hemoglobin 9.1 g/dL (11.5-15.4); Mean Corpuscular HGB Conc 30.1 g/dL (31.6-35.5); Mean Corpuscular Hemoglobin 24.5 pg (28.0-33.3); Mean Corpuscular Volume 81.4 fL (83.0-100.0); Mean Platelet Volume 9.4 fL (9.4-12.4); Platelet Count 367 K/mcL (140-400); Red Blood Count 3.71 M/mcL (3.82-4.97); Red Cell Distribution Width 15.1 % (11.5-14.5)
[2017-09-04 03:37] LABS: BUN/Creatinine Ratio 22 (6-26); Blood Urea Nitrogen 20 mg/dL (8-23); Carbon Dioxide 31 mEq/L (23-29); Chloride 100 mEq/L (98-107); Glucose 103 mg/dL (70-105); Potassium 4.6 mEq/L (3.5-5.1); Sodium 136 mEq/L (136-145); eGFR For African Americans > 60 (> 60); eGFR For Non-African Americans > 60 (> 60)
[2017-09-04 03:38] LABS: Calcium 8.8 mg/dL (8.6-10.3); Osmolality,Calculated 285 (280-300)
--- NOTE | 2017-09-04 06:57 | Orthopedics Progress Note ---
Date of Encounter: 09/04/17 Time of Encounter: 06:57 Subjective Principal diagnosis: Infected L TKA Interval history: Patient was seen this morning doing well without complaints. Afebrile vital signs stable. Operative extremity: Neurovascularly intact Dressing clean dry and intact Calves nontender Assessment and plan: Continue with postoperative care DC drain culture positive for MRSA DC on IV antibiotics 6 weeks.. Objective Vital signs: Vital Signs Temp Pulse Resp BP Pulse Ox 09/03/17 23:28 14 100 09/03/17 23:27 98.1 F 81 16 127/60 96 09/03/17 20:03 98.2 F 81 16 128/72 95 09/03/17 16:32 16 96 09/03/17 14:28 98.5 F 84 16 146/81 98 09/03/17 12:00 98.8 F 86 16 149/77 96 09/03/17 07:57 16 98 Intake and Output 09/03/17 09/03/17 09/04/17 15:59 23:59 07:59 Intake Total 600 / 600 100 / 100 Output Total 1075 / 1075 410 / 410 320 / 320 Balance -475 / -475 -310 / -310 -320 / -320 Intake: IV Fluids 250 / 250 Vancocin 1,250 MG In Dextrose 5 250 / 250 % 250 ML @ 166.67 mls/hr IVPB Q12H [facility] Rx#:[id number] Oral 350 / 350 100 / 100 Output: Urine 1050 / 1050 400 / 400 300 / 300 Wound Drainage 25 / 25 10 / 10 20 / 20 Left Knee 25 / 25 10 / 10 20 Other: Meal Lunch Percent of Meal Consumed 80% Stool Size Moderate Small Small Stool Consistency loose loose formed Stool Characteristics Normal for Patient Normal for Patient Stool Color Brown Brown Brown # Voids 1 # Bowel Movements 1 1 1 - Labs CBC & BMP: 09/04/17 02:39 09/04/17 02:39 Labs: Abnormal lab results WBC 11.5 K/mcL (4.3-11.1) H D 09/04/17 02:39 RBC 3.71 M/mcL (3.82-4.97) L 09/04/17 02:39 Hgb 9.1 g/dL (11.5-15.4) L 09/04/17 02:39 Hct 30.2 % (35.3-44.9) L 09/04/17 02:39 MCV 81.4 fL (83.0-100.0) L 09/04/17 02:39 MCH 24.5 pg (28.0-33.3) L 09/04/17 02:39 MCHC 30.1 g/dL (31.6-35.5) L 09/04/17 02:39 RDW 15.1 % (11.5-14.5) H 09/04/17 02:39 ESR >= 130 mm/hr (0-15) H 08/29/17 16:06 Carbon Dioxide 31 mEq/L (23-29) H 09/04/17 02:39 C-Reactive Protein 77 mg/L (Less than 10) H 08/31/17 12:49 Vancomycin Trough 21.3 mcg/mL (10-20) H* 09/03/17 22:03 - VTE Documentation of Mechanical Device: Venous foot pump, device Consult Discharge Plan - Plan Referrals: Edouard Cole MD [Primary Care Provider] -
[2017-09-04] MEDS: Simethicone 80 MG TAB.CHEW PO SCH ×3 (07:41→22:13)
[2017-09-04] MEDS: Diltiazem CD (24hr) 240 MG CAPSULE PO SCH (07:42)
[2017-09-04] MEDS: Aspirin Enteric Coated 81 MG Tablet PO SCH (07:42)
[2017-09-04] MEDS: Furosemide 40 MG TABLET PO SCH (07:43)
[2017-09-04] MEDS: *HR* Digoxin 0.25 MG TABLET PO SCH (07:43)
[2017-09-04] MEDS: Budesonide/Formoterol 160/4.5 MDI IH SCH ×2 (08:13→23:24)
[2017-09-04] MEDS: Ipratropium/Albuterol Neb 3 ML IH SCH ×3 (08:13→23:24)
[2017-09-04] MEDS: (Incruse Ellipta] 62.5 MCG) IH SCH (08:14)
[2017-09-04] MEDS ORDERED: Vancomycin 1,000 MG in D5% in Water 250 ML IVPB SCH (09:00)
[2017-09-04] MEDS ORDERED: Aminoglycoside Consult 1 EACH MC ONE (11:10)
--- NOTE | 2017-09-04 12:13 | Infectious Disease Consult ---
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 Status post left knee arthrotomy irrigation debridement extensive synovectomy Sinus tract was tracking all the way to the knee joint Patient is not a surgical candidate for 2-stage exchange Patient cannot take rifampin because she is on eliquis, Cardizem and Wellbutrin all medications the rifampin is contraindicated in. I had a very long discussion with the patient and explained to her why we cannot do the 2 2-stage exchange and I explained to her why ideally we should do rifampin but we cannot do rifampin at this time to to her drug drug interaction. Discussed with Dr. Castanon Discussed with pharmacy team, decrease vancomycin to 1 g IV every 12 hours because of vancomycin trough of 21 most recently. Status post PICC line placement At this point we will just do vancomycin probably duration 6-8 weeks following with suppressive oral antibiotics for a long time after that. Follow-up with us in clinic in 2 weeks, on September 20 at 1 PM. Weekly labs while on vancomycin including CBC, BUN and creatinine, ESR, CRP and vancomycin trough Goal vancomycin trough around 15 Qualifiers: Encounter type: initial encounter Qualified Code(s): T84.54XA - Infection and inflammatory reaction due to internal left knee prosthesis, initial encounter (2) Cellulitis Status: Chronic Qualifiers: Site of cellulitis: extremity Site of cellulitis of extremity: lower extremity Laterality: left Qualified Code(s): L03.116 - Cellulitis of left lower limb (3) Morbid obesity Status: Chronic (4) Tobacco abuse Status: Acute (5) Depression Status: Acute Qualifiers: Depression Type: unspecified Qualified Code(s): F32.9 - Major depressive disorder, single episode, unspecified (6) Chronic atrial fibrillation Status: Chronic (7) Sleep apnea Status: Chronic Qualifiers: Sleep apnea type: unspecified type Qualified Code(s): G47.30 - Sleep apnea , unspecified Infectious Disease HPI - Data of Consult Patient: new to practice Consult date: 09/04/17 Requesting Physician: Andi Slaughter Primary Care Provider: Edouard Cole MD - Consult Narrative Reason for consult: infected left TKA History of present illness: Ms. Lewis is a 66 year old female Patient is a 66-year-old woman who was admitted to [facility] on 08/29/2017 for infected left knee wound, we are consult did on 09/04/2017 for MRSA knee cellulitis. Patient is a 66-year-old woman with past medical history mentioned below including hypertension, atrial fibrillation, congestive heart failure, COPD, morbid obesity and sleep apnea who underwent a left revision total knee [place] [address] Castanon was sent to the hospital from wound care for nonhealing wound over the left knee. Patient apparently was having purulent discharge and concern for infected prosthetic knee joint. Briefly, 2010 left revision total knee arthroplasty by Dr. Castanon 2013 bone scan revealed loosening of the hardware. Surgical consideration was put on hold secondary to poor lifestyle and poor surgical candidate. July 2016 patient admitted with a left knee effusion after having cellulitis for 1-2 weeks. Patient had bacteremia with group a strep. Left knee CT scan showed small effusion with no evidence of hardware difficulty and no obvious fluid collection. Cultures from synovial fluid grew Streptococcus pyogenes on 08/02/16 On 08/04/16 patient underwent Removal of left Total knee replacement placement of articulating spacer patellectomy. [facility] 6 weeks duration. On 10/12/16 patient underwent left revision total knee. Intra-Op cultures were sent which were no growth. On 07/11/17 patient was seen by wound care for leg ulcer on the left. On 08/08/17 patient was admitted for left lower extremity cellulitis wound culture at that time grew MRSA and blood culture grew Acinetobacter baumanni. At that time patient was evaluated by or so and based on the CT results and the clinical picture they believe the infection was superficial. Patient was just discharged on cefepime and Bactrim. Currently patient was sent to [facility] from wound care is nonhealing cellulitis with possible drainage over the left knee concerning for infected prosthetic knee. Since admission patient has been afebrile, heart rate has been within normal limits, WBC has been within normal limits, ESR over 130. Blood cultures were obtained and have been no growth to date. Left knee culture was positive for MRSA. CT of the left knee on 08/29/2017 revealed: 1. Re- demonstration of a long-stem revision arthroplasty and patellectomy without significant change when compared to previous CT dated 08/09/2017. No evidence of acute periprosthetic fracture or progressive lucency at the bone- cement interface. 2. Soft tissue thickening and/or fluid in the region of Hoffa's fat, which is similar to the previous study and could be related to postoperative change. Soft tissue gas was present in this location on the previous study but is not seen today. No organized peripherally enhancing fluid collection identified. No significant suprapatellar joint effusion. 3. Diffuse subcutaneous edema and skin thickening again noted, compatible with clinical history of cellulitis. On 09/01/17 patient underwent left knee arthrotomy irrigation debridement extensive synovectomy. Op note reveals that the sinus tract into the knee joint. Patient was continued on IV vancomycin, we were asked to evaluate the patient and make further recommendations. Currently patient laying in bed, appears comfortable. Denies any chest pain or shortness of breath. Denies any headache or blurred vision. No URI symptoms. No chest pain or shortness of breath. No nausea or vomiting. She did have a loose stool today but no zeenat diarrhea. No urinary symptoms. Pain is under control. I evaluated the patient in the presence of the PICC line nurse. CC: Andi Slaughter Past Med Surg Social Fam HX - Past Medical History Medical history: atrial fibrillation, CHF, COPD, GERD, hyperlipidemia, hypertension, other Psychiatric history: depression - Past Surgical History Surgical History: knee replacement, other - Social History Smoking Status: Former smoker Smokeless Tobacco Status: No Alcohol use: none Drug use: none - Family History Mother Adopted: No Family Member Ethnicity: Non- Living Status: Hx Family Cardiac Disorders: Yes (TIAs, CVA, HTN) Hx Family Respiratory Disorders: Yes Hx Family Cancer: Yes Hx Family GI Disorders: No Hx Family Endocrine Disorder: Yes Hx Family Neuromuscular Disorders: No Hx Family Neurologic Disorders: No Hx Family HEENT Disorders: No Hx Family Autoimmune Disorders: No Father Family Member Ethnicity: Non- Living Status: Hx Family Cardiac Disorders: Yes Hx Family Respiratory Disorders: Yes Hx Family Cancer: Yes (Stomach) Hx Family GI Disorders: No Hx Family Endocrine Disorder: Yes Hx Family Neuromuscular Disorders: No Hx Family Neurologic Disorders: No Hx Family HEENT Disorders: No Hx Family Autoimmune Disorders: No Brother Adopted: No Family Member Ethnicity: Non- Living Status: Still Living Hx Family Cardiac Disorders: Yes Hx Family Respiratory Disorders: No Hx Family Cancer: No Hx Family GI Disorders: No Hx Family Endocrine Disorder: Yes Hx Family Neuromuscular Disorders: No Hx Family Neurologic Disorders: Yes Hx Family HEENT Disorders: No Hx Family Autoimmune Disorders: No Sister Adopted: [place]: Nataliya Franklin Age: 72 Family Member Ethnicity: Non- Living Status: Still Living Hx Family Cardiac Disorders: Yes (HTN) Hx Family Respiratory Disorders: Yes (COPD, ASTHMA) Hx Family Cancer: No Hx Family GI Disorders: No Hx Family Genitourinary Disorders: No Hx Family Endocrine Disorder: No Hx Family Musculoskeletal Disorders: No Hx Family Neuromuscular Disorders: No Hx Family Neurologic Disorders: No Hx Family HEENT Disorders: No Hx Family Autoimmune Disorders: No Hx Family Reproductive Disorders: No Hx Family Psychosocial Disorders: No Hx Family Medical Disorders: No Infectious Disease-CN:Meds Albuterol Sulfate [Ventolin Hfa] 2 puff IH Q6H PRN 03/13/16 [History] Apixaban [Eliquis] 5 mg PO Q12H 03/13/16 [History] Aspirin Enteric Coated [Aspirin EC] 81 mg PO DAILY 03/13/16 [History] BuPROPion [Wellbutrin] 100 mg PO BID 03/13/16 [History] Calcium Carbonate/Vitamin D3 [Oyster Shell Calcium-Vit D Tab] 500 mg PO BID [History] Citalopram [CeleXA] 60 mg PO DAILY 03/13/16 [History] Digoxin [Lanoxin] 0.25 mg PO DAILY 03/13/16 [History] Ferrous Sulfate 325 mg PO BIDWM 03/13/16 [History] Umeclidinium [place] [Incruse Ellipta] 62.5 mcg IH DAILY 08/01/16 [History] Mv,Ca,Min/Iron Fum/FA/Lyco/Lut [Sentry Multivit & Mineral Cplt] 1 tab PO DAILY 10/12/16 [History] Omeprazole [PriLOSEC] 40 mg PO DAILY 10/12/16 [History] Oxygen 2 l NS AD PRN 10/12/16 [History] Diltiazem HCl [Diltiazem ER] 240 mg PO DAILY 05/03/17 [History] Furosemide [Lasix] 80 mg PO BID 05/03/17 [History] Budesonide/Formoterol 160/4.5 [Symbicort 160/4.5] 2 puff IH BIDR 06/19/17 [ History] Mupirocin [Bactroban Oint] 1 appl TP AD 08/08/17 [History] Acetaminophen [Tylenol] 650 mg PO Q6HR PRN #30 tablet 08/12/17 [Rx] Ipratropium/Albuterol Neb [Duoneb] 3 ml IH Q8HR #0 08/12/17 [Rx] Polyethylene Glycol 3350 [MiraLAX] 17 gm PO DAILY PRN powd.pack 08/12/17 [Rx] Potassium Chloride 20 meq PO BID #30 tab.er.prt 08/12/17 [Rx] Simethicone [Gas-X] 80 mg PO TID tab.chew 08/12/17 [Rx] Docusate [Colace] 100 mg PO BID PRN 08/29/17 [History] 3 Allergy/AdvReac Type Severity Reaction Status Date / Time lisinopril AdvReac Cough Verified 08/29/17 15:05 Review of systems: 10 point review of systems done, negative other for what is mentioned in history of present illness Exam - Constitutional Vitals: Temp Pulse Resp BP Pulse Ox 98.5 F 83 16 126/74 99 09/04/17 10:14 09/04/17 10:14 09/04/17 10:14 09/04/17 10:14 09/04/17 10:14 General appearance: no acute distress, no febrile - Head Head exam: Present: atraumatic, normocephalic - Eye Eye exam: Present: EOMI, PERRL, sclera anicteric - Neck Neck exam: Present: full ROM. Absent: meningismus - Respiratory Respiratory exam: Present: CTAB. Absent: rhonchi, wheezes - Cardiovascular Cardiovascular exam: Present: RRR, +S1, +S2 - GI/Abdominal GI/Abdominal exam: Present: normal bowel sounds, soft. Absent: tenderness - Extremities Exam Additional comments: patient left knee surgically wrapped. Adequate perfusion. - Neurological Exam Neurological exam: Present: alert, oriented X3, no focal deficits - Psychiatric Psychiatric exam: Present: normal affect, normal mood - Skin Skin exam: Present: normal color. Absent: rash Infectious Disease CN: Results - Labs CBC & Chem 7: 09/04/17 02:39 09/04/17 02:39 Cultures: Cultures 09/01/17 16:28 Anaerobic Culture - Preliminary Left Knee At this time, no anaerobic growth is present. The culture will be finalized after 5 days of incubation. 09/01/17 16:28 Wound Culture - Final Left Knee No growth. 08/31/17 08:00 Anaerobic Culture - Preliminary Left Knee At this time, no anaerobic growth is present. The culture will be finalized after 5 days of incubation. 08/31/17 08:00 Wound Culture - Final Left Knee Methicillin Resistant S.aureus - VTE Documentation of Mechanical Device: Venous foot pump, device Consult Discharge Plan - Plan Referrals: Edouard Cole MD [Primary Care Provider] -
[2017-09-04] MEDS ORDERED: Lidocaine -MPF 1% 2 ML VIAL INFILT ONE (13:54)
[2017-09-04] MEDS: Nystatin POWDER 30 GM BOTTLE TP SCH ×3 (15:08→22:15)
[2017-09-04] MEDS: *HR* HYDROcodone/Acet 5/325 mg TABLET PO PRN ×2 (15:08→22:14)
--- NOTE | 2017-09-04 15:10 | Discharge Summary ---
Date of Encounter: 09/04/17 Time of Encounter: 15:06 - Discharge Diagnosis (1) Cellulitis of left knee Priority: Primary Status: Chronic Comments: Acute cellulitis of the left knee status post incision and drainage on September 01 2017 Continue vancomycin day 7 (2) COPD (chronic obstructive pulmonary disease) Priority: Secondary Status: Chronic Qualifiers: COPD type: unspecified COPD Qualified Code(s): J44.9 - Chronic obstructive pulmonary disease, unspecified (3) Afib Priority: Secondary Status: Chronic Qualifiers: Atrial fibrillation type: chronic Qualified Code(s): I48.2 - Chronic atrial fibrillation (4) Morbid obesity with BMI of 50.0-59.9, adult Priority: Secondary Status: Chronic (5) History of total knee arthroplasty Priority: Secondary Status: Chronic Qualifiers: Laterality: left Qualified Code(s): Z96.652 - Presence of left artificial knee joint (6) Chronic diastolic CHF (congestive heart failure) Priority: Secondary Status: Acute - Discharge Medications Prescriptions: HYDROcodone/Acet 5/325 mg [[place] 5-325 mg] 1 tab PO Q4HR PRN #30 tablet PRN Reason: Moderate Pain (4-6) Vancomycin [Vancocin] 1,000 mg IV Q12HR 14 Days vial Home Medications: Albuterol Sulfate [Ventolin Hfa] 2 puff IH Q6H PRN 03/13/16 [History] Apixaban [Eliquis] 5 mg PO Q12H 03/13/16 [History] Aspirin Enteric Coated [Aspirin EC] 81 mg PO DAILY 03/13/16 [History] BuPROPion [Wellbutrin] 100 mg PO BID 03/13/16 [History] Calcium Carbonate/Vitamin D3 [Oyster Shell Calcium-Vit D Tab] 500 mg PO BID [History] Citalopram [CeleXA] 60 mg PO DAILY 03/13/16 [History] Digoxin [Lanoxin] 0.25 mg PO DAILY 03/13/16 [History] Ferrous Sulfate 325 mg PO BIDWM 03/13/16 [History] Umeclidinium [place] [Incruse Ellipta] 62.5 mcg IH DAILY 08/01/16 [History] Mv,Ca,Min/Iron Fum/FA/Lyco/Lut [Sentry Multivit & Mineral Cplt] 1 tab PO DAILY 10/12/16 [History] Omeprazole [PriLOSEC] 40 mg PO DAILY 10/12/16 [History] Oxygen 2 l NS AD PRN 10/12/16 [History] Diltiazem HCl [Diltiazem ER] 240 mg PO DAILY 05/03/17 [History] Furosemide [Lasix] 80 mg PO BID 05/03/17 [History] Budesonide/Formoterol 160/4.5 [Symbicort 160/4.5] 2 puff IH BIDR 06/19/17 [ History] Mupirocin [Bactroban Oint] 1 appl TP AD 08/08/17 [History] Acetaminophen [Tylenol] 650 mg PO Q6HR PRN #30 tablet 08/12/17 [Rx] Ipratropium/Albuterol Neb [Duoneb] 3 ml IH Q8HR #0 08/12/17 [Rx] Polyethylene Glycol 3350 [MiraLAX] 17 gm PO DAILY PRN powd.pack 08/12/17 [Rx] Potassium Chloride 20 meq PO BID #30 tab.er.prt 08/12/17 [Rx] Simethicone [Gas-X] 80 mg PO TID tab.chew 08/12/17 [Rx] Docusate [Colace] 100 mg PO BID PRN 08/29/17 [History] HYDROcodone/Acet 5/325 mg [[place] 5-325 mg] 1 tab PO Q4HR PRN #30 tablet [Rx] Vancomycin [Vancocin] 1,000 mg IV Q12HR 14 Days vial 09/04/17 [Rx] Allergies/Adverse Reactions: 3 Allergy/AdvReac Type Severity Reaction Status Date / Time lisinopril AdvReac Cough Verified 08/29/17 15:05 Date of admission: 08/29/17 22:58 Primary care physician: Edouard Cole MD Consults: 08/30/17 00:00 Consult to Boomboat Operator [CONS] Routine Reason for SW Consult: Possible need for ECF or HH on d/c 09/01/17 17:45 Consult to Occupational Therapy [CONS] Routine Comment: Evaluate, develop and implement POC Reason for Consult: post knee surgery Consult to Orthopedic Navigator [CONS] [CONS] Routine Consult to Physical Therapy [CONS] Routine Comment: Evaluate, develop and impliment POC Reason for Consult: post knee surgery Consult to Boomboat Operator [CONS] Routine Reason for SW Consult: post op joint replacement RT Post Op Consult [CONS] Routine 09/03/17 14:49 Consult to Infectious Diseases [CONS] Routine Consulting Provider: Infectious Disease Leah Reason for Consult: MRSA knee cellulitis Call Completed: No 09/04/17 13:54 Consult to Invasive Line Access Team [CONS] Routine Reason for Consult: Picc Line Insertion Line Type: PICC - Patient Status Disposition: Home Health Service Condition: Fair Overall status at discharge: patient is progressing back to baseline - Discharge Instructions Follow Up With: Edouard Cole MD [Primary Care Provider] - Additional Instructions: Follow-up with primary care physician within the next 7 days. Follow-up with the infectious diseases service in 2 weeks (September 20 at 1 PM.) to continue IV antibiotics/vancomycin for 6-8 weeks. Weekly labs while on vancomycin including CBC, BUN and creatinine, ESR, CRP and vancomycin trough Goal vancomycin trough around 15. Wound care per orthopedic surgery - Diet and Activity Activity: increase activity as tolerated Diet: low fat, low cholesterol Hospital course: Ms. Lewis is a 66 year old female with past medical history mentioned below including hypertension, atrial fibrillation, congestive heart failure, COPD, morbid obesity and sleep apnea who underwent a left revision total knee [place] [address] Castanon was sent to the hospital from wound care for nonhealing wound over the left knee. Patient was having purulent discharge and concern for infected prosthetic knee joint. 2010 left revision total knee arthroplasty by Dr. Castanon 2012 bone scan revealed loosening of the hardware. Surgical consideration was put on hold secondary to poor lifestyle and poor surgical candidate. July 2016 patient admitted with a left knee effusion after having cellulitis for 1-2 weeks. Patient had bacteremia with group a strep. Left knee CT scan showed small effusion with no evidence of hardware difficulty and no obvious fluid collection. Cultures from synovial fluid grew Streptococcus pyogenes on 08/02/16 On 08/04/16 patient underwent Removal of left Total knee replacement placement of articulating spacer patellectomy. Patient was discharged to [facility] on ceftriaxone for 6 weeks duration. On 10/12/16 patient underwent left revision total knee. Intra-Op cultures were sent which were no growth. On 07/11/17 patient was seen by wound care for leg ulcer on the left. On 08/08/17 patient was admitted for left lower extremity cellulitis wound culture at that time grew MRSA and blood culture grew Acinetobacter baumanni. At that time patient was evaluated by or so and based on the CT results and the clinical picture they believe the infection was superficial. Patient was just discharged on cefepime and Bactrim. Currently patient was sent to [facility] from wound care is nonhealing cellulitis with possible drainage over the left knee concerning for infected prosthetic knee. Since admission patient has been afebrile, heart rate has been within normal limits, WBC has been within normal limits, ESR over 130. Blood cultures were obtained and have been no growth to date. Left knee culture was positive for MRSA. CT of the left knee on 08/29/2017 revealed: 1. Re- demonstration of a long-stem revision arthroplasty and patellectomy without significant change when compared to previous CT dated 08/09/2017. No evidence of acute periprosthetic fracture or progressive lucency at the bone- cement interface. 2. Soft tissue thickening and/or fluid in the region of Hoffa's fat, which is similar to the previous study and could be related to postoperative change. Soft tissue gas was present in this location on the previous study but is not seen today. No organized peripherally enhancing fluid collection identified. No significant suprapatellar joint effusion. 3. Diffuse subcutaneous edema and skin thickening again noted, compatible with clinical history of cellulitis. On 09/01/17 patient underwent left knee arthrotomy irrigation debridement extensive synovectomy. Op note reveals that the sinus tract into the knee joint. Patient was continued on IV vancomycin, ID was consulted and recommended to continue IV vancomycin at 1000 mg IV q12h for 6-8 weeks. - Time Spent with Patient Total time spent providing and/or coordinating discharge services: Greater than 30 minutes (40 min) - Constitutional Vitals: Temp Pulse Resp BP Pulse Ox 98.5 F 83 16 126/74 99 09/04/17 10:14 09/04/17 10:14 09/04/17 10:14 09/04/17 10:14 09/04/17 10:14 General appearance: Present: A&O X 3, morbidly obese, no acute distress, answers questions appropriately Exam: Head Head exam: Present: atraumatic, normocephalic - Eye Eye exam: Present: PERRL, conjuntiva pink, sclera anicteric Pupils: Present: PERRL - Neck Neck exam general surgery: Present: supple, trachea midline. Absent: lymphadenopathy - Respiratory Respiratory exam: Present: CTAB. Absent: accessory muscle use, rales, rhonchi, wheezes - Cardiovascular Cardiovascular exam: Present: RRR, +S1, +S2. Absent: diastolic murmur, gallop, rubs, systolic murmur - GI/Abdominal GI/Abdominal exam: Present: normal bowel sounds, soft, no peritoneal signs. Absent: distended, tenderness - Extremities Exam Extremities exam: Present: warm, radial pulses palpable and symmetrical. Absent : calf tenderness, cyanotic, pedal edema Additional comments: Right upper extremity PICC line Left knee anterior surgical wound draining sanguinous material through drained, covered with dressing - Neurological Exam Neurological exam: Present: CN II-XII intact, oriented X3, no focal deficits. Absent: pronater drift, facial droop, speech deficit - Skin Skin exam: Present: dry, intact - VTE Documentation of Mechanical Device: Venous foot pump, device
--- NOTE | 2017-09-04 15:17 | Physician Discharge Referral ---
Home Health/Hosp Referral Info Transfer to: Home Health Provider in Charge Post Discharge: PCP - Diagnosis (1) Cellulitis of left knee Status: Chronic (2) COPD (chronic obstructive pulmonary disease) Status: Chronic (3) Afib Status: Chronic (4) Morbid obesity with BMI of 50.0-59.9, adult Status: Chronic (5) History of total knee arthroplasty Status: Chronic (6) Chronic diastolic CHF (congestive heart failure) Status: Acute - Respiratory Orders Smoking Cessation: Smoking cessation has been advised. For more information, call the [place] Tobacco Quit Line at 5-985-VNAC-NOW. - Diet/Nutrition Diet/Nutrition Orders: No Added Salt (CARROL) - Services Needed Following services are medically necessary services: Nursing, Home Health Aide, Physical Therapy, Occupational Therapy, Home Infusion Home Care Orders: Follow-up with primary care physician within the next 7 days. Follow-up with the infectious diseases service in 2 weeks (September 20 at 1 PM.) to continue IV antibiotics/vancomycin for 6-8 weeks. Weekly labs while on vancomycin including CBC, BUN and creatinine, ESR, CRP and vancomycin trough Goal vancomycin trough around 15. Wound care per orthopedic surgery - Transfer Medications Prescriptions: HYDROcodone/Acet 5/325 mg [[place] 5-325 mg] 1 tab PO Q4HR PRN #30 tablet PRN Reason: Moderate Pain (4-6) Vancomycin [Vancocin] 1,000 mg IV Q12HR 14 Days vial Home Medications: Albuterol Sulfate [Ventolin Hfa] 2 puff IH Q6H PRN 03/13/16 [History] Apixaban [Eliquis] 5 mg PO Q12H 03/13/16 [History] Aspirin Enteric Coated [Aspirin EC] 81 mg PO DAILY 03/13/16 [History] BuPROPion [Wellbutrin] 100 mg PO BID 03/13/16 [History] Calcium Carbonate/Vitamin D3 [[place]yster Shell Calcium-Vit D Tab] 500 mg PO BID [History] Citalopram [CeleXA] 60 mg PO DAILY 03/13/16 [History] Digoxin [Lanoxin] 0.25 mg PO DAILY 03/13/16 [History] Ferrous Sulfate 325 mg PO BIDWM 03/13/16 [History] Umeclidinium [place] [Incruse Ellipta] 62.5 mcg IH DAILY 08/01/16 [History] Mv,Ca,Min/Iron Fum/FA/Lyco/Lut [Sentry Multivit & Mineral Cplt] 1 tab PO DAILY 10/12/16 [History] Omeprazole [PriLOSEC] 40 mg PO DAILY 10/12/16 [History] Oxygen 2 l NS AD PRN 10/12/16 [History] Diltiazem HCl [Diltiazem ER] 240 mg PO DAILY 05/03/17 [History] Furosemide [Lasix] 80 mg PO BID 05/03/17 [History] Budesonide/Formoterol 160/4.5 [Symbicort 160/4.5] 2 puff IH BIDR 06/19/17 [ History] Mupirocin [Bactroban Oint] 1 appl TP AD 08/08/17 [History] Acetaminophen [Tylenol] 650 mg PO Q6HR PRN #30 tablet 08/12/17 [Rx] Ipratropium/Albuterol Neb [Duoneb] 3 ml IH Q8HR #0 08/12/17 [Rx] Polyethylene Glycol 3350 [MiraLAX] 17 gm PO DAILY PRN powd.pack 08/12/17 [Rx] Potassium Chloride 20 meq PO BID #30 tab.er.prt 08/12/17 [Rx] Simethicone [Gas-X] 80 mg PO TID tab.chew 08/12/17 [Rx] Docusate [Colace] 100 mg PO BID PRN 08/29/17 [History] HYDROcodone/Acet 5/325 mg [[place] 5-325 mg] 1 tab PO Q4HR PRN #30 tablet [Rx] Vancomycin [Vancocin] 1,000 mg IV Q12HR 14 Days vial 09/04/17 [Rx] Allergies/Adverse Reactions: 3 Allergy/AdvReac Type Severity Reaction Status Date / Time lisinopril AdvReac Cough Verified 08/29/17 15:05 Certification: Further, I certify that my clinical findings support that this patient is homebound (i.e. absences from home require considerable and taxing effort and are for medical reasons or yarsanism services or infrequently or short duration when for other reasons) because: Homebound Reason: Patient requires assistance of a person or device to safely leave home Attestation: My signature below is to certify that this patient is under my care and that I, or nurse practitioner, or a physician's optical assistant working with me, has a face-to -face encounter with this patient.
[2017-09-04] MEDS: Vancomycin 1,000 MG in D5% in Water 250 ML IVPB SCH (15:21)
[2017-09-05] MEDS: Apixaban 5 MG TABLET PO SCH (02:48)
[2017-09-05] MEDS: Vancomycin 1,000 MG in D5% in Water 250 ML IVPB SCH (02:48)
[2017-09-05 07:07] VITALS: BP 136/79
[2017-09-05] MEDS: Ipratropium/Albuterol Neb 3 ML IH SCH (07:58)
[2017-09-05] MEDS: Budesonide/Formoterol 160/4.5 MDI IH SCH (07:58)
[2017-09-05] MEDS: Furosemide 40 MG TABLET PO SCH (09:27)
[2017-09-05] MEDS: *HR* Digoxin 0.25 MG TABLET PO SCH (09:27)
[2017-09-05] MEDS: Simethicone 80 MG TAB.CHEW PO SCH (09:27)
[2017-09-05] MEDS: Diltiazem CD (24hr) 240 MG CAPSULE PO SCH (09:28)
[2017-09-05] MEDS: (Incruse Ellipta] 62.5 MCG) IH SCH (09:28)
[2017-09-05] MEDS: Aspirin Enteric Coated 81 MG Tablet PO SCH (09:28)
[2017-09-05] MEDS: *HR* HYDROcodone/Acet 5/325 mg TABLET PO PRN (09:48)
== END 2017-09-05 11:11 | disposition home health service (06) | DRG 486 ==
LOC: EMEROO 14:09 → 3NENU 14:09 → SUATTDRO 22:58 → 3NENU 23:30
PROVIDERS: ADMIT Internal Medicine; ATTEND Internal Medicine

== ENCOUNTER 2017-12-26 11:52 | Inpatient (IN) ==
--- NOTE | 2017-12-26 12:06 | Emergency Department Note ---
Disposition Clinical Impression: DVT (deep venous thrombosis) Qualifiers: DVT location: lower extremity Affected thrombotic vein of extremity: popliteal Chronicity: acute Laterality: left Qualified Code(s): I82.432 - Acute embolism and thrombosis of left popliteal vein Disposition: Admitted As Inpatient Condition: Fair Time of Disposition: 16:17 Extremity Problem HPI - General Chief complaint: ED Extremity Problem,Nontraumatic Stated complaint: LLE pain Time Seen by Provider: 12/26/17 11:56 Source: patient Mode of arrival: wheelchair Limitations: no limitations Nursing Notes Reviewed: Yes Vital Signs Reviewed: Yes - History of Present Illness HPI Narrative: 67-year-old fell about a week ago injuring her left leg. She was seen by her provider who did x-rays that were negative. Today she was trying to get out of her wheelchair and felt increasing pain in the left femur area down into the tib -fib region. Pt Subjective Complaint: extremity pain Onset (ago): Just [employer] Consistency: constant Injury Location: left, lower extremity Pain Scale: 4 Quality: aching Radiation: none Improves with: nothing Worsens with: weight bearing Associated symptoms: Reports: denies other symptoms Context: other (Recent injury) - Related Data Home Medications Medication Instructions Recorded Confirmed Albuterol Sulfate [Ventolin Hfa] 2 puff IH Q6H PRN 03/13/16 12/26/17 Apixaban [Eliquis] 5 mg PO Q12H 03/13/16 12/26/17 Aspirin Enteric Coated [Aspirin EC] 81 mg PO DAILY 03/13/16 12/26/17 BuPROPion [Wellbutrin] 100 mg PO BID 03/13/16 12/26/17 Calcium Carbonate/Vitamin D3 500 mg PO BID 03/13/16 12/26/17 [Oyster Shell Calcium-Vit D Tab] Citalopram [CeleXA] 60 mg PO DAILY 03/13/16 12/26/17 Digoxin [Lanoxin] 0.25 mg PO DAILY 03/13/16 12/26/17 Ferrous Sulfate 325 mg PO BIDWM 03/13/16 12/26/17 Umeclidinium [place] [Incruse 62.5 mcg IH DAILY 08/01/16 12/26/17 Ellipta] Mv,Ca,Min/Iron Fum/FA/Lyco/Lut 1 tab PO DAILY 10/12/16 12/26/17 [Sentry Multivit & Mineral Cplt] Omeprazole [PriLOSEC] 40 mg PO DAILY 10/12/16 12/26/17 Oxygen 2 l NS AD PRN 10/12/16 12/26/17 Diltiazem HCl [Diltiazem ER] 240 mg PO DAILY 05/03/17 12/26/17 Furosemide [Lasix] 80 mg PO BID 05/03/17 12/26/17 Budesonide/Formoterol 160/4.5 2 puff IH BIDR 06/19/17 12/26/17 [Symbicort 160/4.5] Mupirocin [Bactroban Oint] 1 appl TP AD 08/08/17 12/26/17 Docusate [Colace] 100 mg PO BID PRN 08/29/17 12/26/17 Doxycycline Hyclate [Vibramycin] 100 mg PO DAILY 12/26/17 12/26/17 Previous Rx's Medication Instructions Recorded Acetaminophen [Tylenol] 650 mg PO Q6HR PRN #30 tablet 08/12/17 Polyethylene Glycol 3350 [MiraLAX] 17 gm PO DAILY PRN powd.pack 08/12/17 Simethicone [Gas-X] 80 mg PO TID tab.chew 08/12/17 Allergies Allergy/AdvReac Type Severity Reaction Status Date / Time lisinopril AdvReac Cough Verified 12/26/17 16:25 All systems ED: reviewed and negative except as stated. Constitutional: Denies: fever, chills, weakness, weight change Eyes: Denies: eye pain, eye discharge, vision change ENT ED: Denies: ear pain, throat pain, dental pain, hearing loss, epistaxis, congestion, dysphagia Cardiovascular: Denies: chest pain, palpitations, dyspnea on exertion, edema, syncope Respiratory: Denies: cough, dyspnea, wheezes, hemoptysis, stridor Gastrointestinal: Denies: abdominal pain, nausea, vomiting, diarrhea, constipation, hematemesis, melena, hematochezia Genitourinary: Denies: dysuria, frequency, hematuria, discharge Musculoskeletal: Reports: arthralgia. Denies: back pain, neck pain, myalgia Integumentary: Denies: rash, abrasion, lesions Neurological: Denies: headache, weakness, numbness, paresthesias, confusion, abnormal gait, vertigo Psychiatric: Denies: anxiety, depression, suicidal thoughts, homicidal thoughts , auditory hallucinations, visual hallucinations Endocrine: Denies: fatigue Hematological/Lymphatic: Denies: easy bleeding, easy bruising Allergic/Immunologic: Denies: facial swelling, urticaria Past Medical History - Past Medical History Medical history: Reports: atrial fibrillation, CHF, COPD, GERD, hyperlipidemia, hypertension, other Surgical history: Reports: knee replacement, other Psychiatric history: Reports: depression RESEARCH RECRUITER history: Reports: no RESEARCH RECRUITER history - Social History Smoking Status: Former smoker Smokeless Tobacco Status: No Alcohol use: Reports: none Drug use: Reports: none Physical Exam - General Limitations: no limitations General appearance: alert, in no apparent distress - Head Head exam: atraumatic, normocephalic, normal inspection - Eye Eye exam: Present: normal appearance, PERRL, EOMI - ENT ENT exam: normal exam, normal oropharynx, mucous membranes moist - Neck Neck exam: Present: normal inspection, full ROM, trachea midline - Chest Chest inspection: Present: normal inspection, symmetric chest wall rise - Respiratory Respiratory exam: Present: normal lung sounds bilaterally - Cardiovascular Cardiovascular exam: Present: regular rate, normal rhythm, normal heart sounds - Abdominal Exam Abdominal exam: Present: soft, Non-Tender - Extremities Exam Extremities exam: Present: tenderness - Expanded Lower Extremity Exam Neurovascular/Tendon exam: Absent: motor deficit, sensory deficit, tendon deficit Gait: observed and normal - Back Exam Back exam: Present: normal inspection, full ROM. Absent: tenderness - Neurological Exam Neurological exam: Present: alert, oriented X3 - Psychiatric Psychiatric exam: Present: normal affect, normal mood - Skin Skin exam: Present: warm, dry, intact, normal color Course - Reevaluation(s) Reevaluation #1: 67-year-old who comes in with pain in the knee with possible loosening of the prosthetic. Venous Doppler scan shows a DVT in the popliteal vein. Patient is currently on Eliquis. Time: 15:54 Reevaluation #2: 67-year-old who is being admitted because of DVT. Initially she had told me that she takes her medicines as prescribed however later in the visit she stated she has not been taking her nighttime meds. Time: 16:53 - Consultations Consultation #1: Discussed with Dr. Hartmann, will evalUate x-ray and talk to Dr. Castanon and get back with us. Time: 13:18 Consultation #2: Discussed with hematology since she failed Eliquis, Xarelto is not indicated. Discussed with Eva Howard. Time: 15:59 Consultation #3: Discussed with tahir Delgado. Time: 16:16 Additional Consultation(s): 1700 discussed with informed him that the patient had not been taking her medication as prescribed she has not been taking that tonight's as she had initially reported she had been taking her medications as directed Vital Signs Temperature 98.7 F 12/26/17 11:54 Pulse Rate 99 12/26/17 11:54 Respiratory Rate 22 12/26/17 11:54 Blood Pressure 111/73 12/26/17 11:54 O2 Sat by Pulse Oximetry 96 12/26/17 11:54 Temperature 98.7 F 12/26/17 12:03 Pulse Rate 76 12/26/17 16:46 Respiratory Rate 18 12/26/17 16:46 Blood Pressure 98/50 12/26/17 16:46 O2 Sat by Pulse Oximetry 95 12/26/17 16:46 Oxygen Delivery Oxygen Delivery Room Air Extremity Problem, Nontraumati - Lab Data Lab results reviewed: Yes I reviewed the patient's lab results. Result diagrams: 12/26/17 14:27 12/26/17 14:27 Lab Results 12/26/17 12/26/17 12/26/17 Range/Units 14:27 14:27 14:27 WBC 12.3 H (4.3-11.1) K/mcL RBC 4.76 (3.82-4.97) M/mcL Hgb 10.9 L (11.5-15.4) g/dL Hct 35.9 (35.3-44.9) % MCV 75.4 L (83.0-100.0) fL MCH 22.9 L (28.0-33.3) pg MCHC 30.4 L (31.6-35.5) g/dL RDW 16.0 H (11.5-14.5) % Plt Count 483 H (140-400) K/mcL MPV 9.4 (9.4-12.4) fL Immature Gran % 0.5 (0-4) % Seg Neutrophils % 74.2 % Lymphocytes % 13.1 % Monocytes % 5.1 % Eosinophils % 6.7 % Basophils % 0.4 % Neutrophils # 9.1 H (1.6-8.9) K/mcL Lymphocytes # 1.6 (0.6-4.6) K/mcL Monocytes # 0.6 (0.0-1.3) K/mcL Eosinophils # 0.8 H (0.0-0.6) K/mcL Basophils # 0.1 (0.0-0.2) K/mcL PT 14.8 H (9.4-12.1) Seconds INR 1.4 APTT 36.2 H (26.0-36.0) Seconds Sodium 137 (136-145) mEq/L Potassium 3.9 (3.5-5.1) mEq/L Chloride 100 (98-107) mEq/L Carbon Dioxide 27 (23-29) mEq/L BUN 10 (8-23) mg/dL Creatinine 0.73 (0.60-1.20) mg/dL Est GFR ( Amer) > 60 (> 60) Est GFR (Non-Af Amer) > 60 (> 60) BUN/Creatinine Ratio 14 (6-26) Glucose 86 (70-105) mg/dL Calculated Osmolality 282 (280-300) Calcium 9.1 (8.6-10.3) mg/dL - Radiology Data Radiology results reviewed: Yes I reviewed the patient's radiology results. Femur X-Ray 12/26/17 12:02 IMPRESSION: 1. Limited study due to patient's large body habitus, particularly limiting visibility of the proximal left femur. No displaced proximal left femoral fracture identified. 2. Long-stem revision arthroplasty and patellectomy at the left knee. There is mild periprosthetic lucency noted, similar to previous radiographs dated 12/14/2017 but mildly increased when compared to 08/08/2017. This finding is nonspecific but can be seen with mechanical loosening and/or infection. Clinical correlation is necessary. 3. No acute periprosthetic fracture. D/ / Krystle Do / Krystle Do Interpreting Provider: Krystle Do Tibia/Fibula X-Ray 12/26/17 12:02
[2017-12-26 14:46] LABS: Basophils # 0.1 K/mcL (0.0-0.2); Basophils % 0.4 %; Eosinophils # 0.8 K/mcL (0.0-0.6); Eosinophils % 6.7 %; Hematocrit 35.9 % (35.3-44.9); Hemoglobin 10.9 g/dL (11.5-15.4); Immature Granulocytes % 0.5 % (0-4); Lymphocytes # 1.6 K/mcL (0.6-4.6); Lymphocytes % 13.1 %; Mean Corpuscular HGB Conc 30.4 g/dL (31.6-35.5); Mean Corpuscular Hemoglobin 22.9 pg (28.0-33.3); Mean Corpuscular Volume 75.4 fL (83.0-100.0); Mean Platelet Volume 9.4 fL (9.4-12.4); Monocytes # 0.6 K/mcL (0.0-1.3); Monocytes % 5.1 %; Neutrophils # 9.1 K/mcL (1.6-8.9); Platelet Count 483 K/mcL (140-400); Red Blood Count 4.76 M/mcL (3.82-4.97); Segmented Neutrophils % 74.2 %
[2017-12-26 15:12] LABS: BUN/Creatinine Ratio 14 (6-26); Blood Urea Nitrogen 10 mg/dL (8-23); Calcium 9.1 mg/dL (8.6-10.3); Carbon Dioxide 27 mEq/L (23-29); Chloride 100 mEq/L (98-107); Glucose 86 mg/dL (70-105); Osmolality,Calculated 282 (280-300); Potassium 3.9 mEq/L (3.5-5.1); Sodium 137 mEq/L (136-145); eGFR For African Americans > 60 (> 60); eGFR For Non-African Americans > 60 (> 60)
[2017-12-26] MEDS ORDERED: *HR* Heparin 5,000 UNIT/ML VIAL IVP ONE (16:02)
[2017-12-26] MEDS ORDERED: *HR* Heparin 5,000 UNIT/ML VIAL IVP PRN ×2 (16:02)
[2017-12-26 16:15] LABS: INR 1.4; Prothrombin Time 14.8 Seconds (9.4-12.1)
[2017-12-26 16:17] LABS: Activated Partial Thrombo Time 36.2 Seconds (26.0-36.0)
[2017-12-26] MEDS: Heparin 25,000 UNIT/500 ML D5W 25,000 UNIT/500 ML BAG IVC SCH (16:43)
--- NOTE | 2017-12-26 17:48 | Internal Med History&Physical ---
Date of Encounter: 12/26/17 Time of Encounter: 17:00 Internal Medicine - H&P: HPI Chief complaint: Left knee pain Admitted From: Home History of present illness: Patient is a 67-year-old female with past medical history significant for atrial fibrillation, CHF, COPD, hyperlipidemia and hypertension with recent Left knee arthrotomy irrigation debridement and extensive synovectomy on 09/01/17 , who presents to the ER on 12/26/17 due to left knee pain. Patient reports a one-week history of left anterior/lateral knee pain which she describes as sharp which is constant made worse with ambulation and weight bearing and better with rest. Patient reports the pain progressively has gotten worse to the point today where she could no longer bear weight due to pain during physical therapy and was sent to the ER for further evaluation. In the ER, patient was found to have an acute embolism and thrombosis of the left popliteal vein. In addition on imaging of the left tibia/fibula patient was found to have a mild periprosthetic lucency noted, which can be seen with mechanical loosening and/or infection. Orthopedics and hematology/oncology was consulted from the ER and patient will be admitted to medical surgical floor for left lower extremity DVT and concern for periprosthetic loosening. Past Med Surg Social Fam HX - Past Medical History Medical history: atrial fibrillation, CHF, COPD, GERD, hyperlipidemia, hypertension, other Psychiatric history: depression - Past Surgical History Surgical History: knee replacement, other - Social History Smoking Status: Former smoker Smokeless Tobacco Status: No Alcohol use: none Drug use: none - Family History Mother Adopted: No Family Member Ethnicity: Non- Living Status: Hx Family Cardiac Disorders: Yes (TIAs, CVA, HTN) Hx Family Respiratory Disorders: Yes Hx Family Cancer: Yes Hx Family GI Disorders: No Hx Family Endocrine Disorder: Yes Hx Family Neuromuscular Disorders: No Hx Family Neurologic Disorders: No Hx Family HEENT Disorders: No Hx Family Autoimmune Disorders: No Father Family Member Ethnicity: Non- Living Status: Hx Family Cardiac Disorders: Yes Hx Family Respiratory Disorders: Yes Hx Family Cancer: Yes (Stomach) Hx Family GI Disorders: No Hx Family Endocrine Disorder: Yes Hx Family Neuromuscular Disorders: No Hx Family Neurologic Disorders: No Hx Family HEENT Disorders: No Hx Family Autoimmune Disorders: No Brother Adopted: No Family Member Ethnicity: Non- Living Status: Still Living Hx Family Cardiac Disorders: Yes Hx Family Respiratory Disorders: No Hx Family Cancer: No Hx Family GI Disorders: No Hx Family Endocrine Disorder: Yes Hx Family Neuromuscular Disorders: No Hx Family Neurologic Disorders: Yes Hx Family HEENT Disorders: No Hx Family Autoimmune Disorders: No Sister Adopted: No Family Member Ethnicity: Non- Living Status: Still Living Hx Family Cardiac Disorders: Yes (HTN) Hx Family Respiratory Disorders: Yes (COPD, ASTHMA) Hx Family Cancer: No Hx Family GI Disorders: No Hx Family Endocrine Disorder: No Hx Family Neuromuscular Disorders: No Hx Family Neurologic Disorders: No Hx Family HEENT Disorders: No Hx Family Autoimmune Disorders: No Internal Medicine - H&P: Meds Albuterol Sulfate [Ventolin Hfa] 2 puff IH Q6H PRN 03/13/16 [History] Apixaban [Eliquis] 5 mg PO Q12H 03/13/16 [History] Aspirin Enteric Coated [Aspirin EC] 81 mg PO DAILY 03/13/16 [History] BuPROPion [Wellbutrin] 100 mg PO BID 03/13/16 [History] Calcium Carbonate/Vitamin D3 [Oyster Shell Calcium-Vit D Tab] 500 mg PO BID [History] Citalopram [CeleXA] 60 mg PO DAILY 03/13/16 [History] Digoxin [Lanoxin] 0.25 mg PO DAILY 03/13/16 [History] Ferrous Sulfate 325 mg PO BIDWM 03/13/16 [History] Umeclidinium [place] [Incruse Ellipta] 62.5 mcg IH DAILY 08/01/16 [History] Mv,Ca,Min/Iron Fum/FA/Lyco/Lut [Sentry Multivit & Mineral Cplt] 1 tab PO DAILY 10/12/16 [History] Omeprazole [PriLOSEC] 40 mg PO DAILY 10/12/16 [History] Oxygen 2 l NS AD PRN 10/12/16 [History] Diltiazem HCl [Diltiazem ER] 240 mg PO DAILY 05/03/17 [History] Furosemide [Lasix] 80 mg PO BID 05/03/17 [History] Budesonide/Formoterol 160/4.5 [Symbicort 160/4.5] 2 puff IH BIDR 06/19/17 [ History] Mupirocin [Bactroban Oint] 1 appl TP AD 08/08/17 [History] Acetaminophen [Tylenol] 650 mg PO Q6HR PRN #30 tablet 08/12/17 [Rx] Polyethylene Glycol 3350 [MiraLAX] 17 gm PO DAILY PRN powd.pack 08/12/17 [Rx] Simethicone [Gas-X] 80 mg PO TID tab.chew 08/12/17 [Rx] Docusate [Colace] 100 mg PO BID PRN 08/29/17 [History] Doxycycline Hyclate [Vibramycin] 100 mg PO DAILY 12/26/17 [History] 3 Allergy/AdvReac Type Severity Reaction Status Date / Time lisinopril AdvReac Cough Verified 12/26/17 16:25 All Systems PM: A 10-system review of systems was performed and is negative for pertinent findings except as documented above in the HPI. - Constitutional Vitals: Temp Pulse Resp BP Pulse Ox 98.7 F 76 18 98/50 95 12/26/17 12:03 12/26/17 16:46 12/26/17 16:46 12/26/17 16:46 12/26/17 16:46 General appearance: Present: A&O X 3, no acute distress - Eye Eye exam: Present: normal appearance - ENT ENT exam: Present: mucous membranes moist - Respiratory Respiratory exam: Present: CTAB. Absent: accessory muscle use, rales, rhonchi, wheezes - Cardiovascular Cardiovascular exam: Present: RRR, +S1, +S2. Absent: diastolic murmur, gallop, rubs, systolic murmur - GI/Abdominal GI/Abdominal exam: Present: normal bowel sounds, soft, no peritoneal signs. Absent: distended, tenderness - Expanded Lower Extremities Exam Knee exam: Present: tenderness (left knee) - Neurological Exam Neurological exam: Present: oriented X3 - Psychiatric Psychiatric exam: Present: normal mood - Skin Skin exam: Present: normal color Internal Med - H&P Results - Labs CBC & Chem 7: 12/26/17 14:27 12/26/17 14:27 - Assessment and plan (1) DVT (deep venous thrombosis) Current Visit: Yes Status: Acute Assessment and plan: s/p Left knee arthrotomy irrigation debridement and extensive synovectomy on 08/07 Patient reports a one-week history of left anterior/lateral knee pain In the ER, patient was found to have an acute embolism and thrombosis of the left popliteal vein. Patient had been on Eliquis for atrial fibrillation but admits to not taking medication as prescribed; she only took medication once daily instead of twice daily for the last 2 months Will continue heparin drip started in the ER Hematology oncology consulted from the ER and appreciate recommendations Qualifiers: DVT location: lower extremity Affected thrombotic vein of extremity: popliteal Chronicity: acute Laterality: left Qualified Code(s): I82.432 - Acute embolism and thrombosis of left popliteal vein (2) History of total knee arthroplasty Current Visit: No Status: Chronic Assessment and plan: s/p Left knee arthrotomy irrigation debridement and extensive synovectomy on 08/07, In the ER, imaging of the left tibia/fibula patient was found to have a mild periprosthetic lucency noted, which can be seen with mechanical loosening and/ or infection. Orthopedics was consulted from the ER and appreciate recommendations Qualifiers: Laterality: left Qualified Code(s): Z96.652 - Presence of left artificial knee joint (3) Chronic diastolic CHF (congestive heart failure) Current Visit: No Status: Acute Assessment and plan: Patient euvolemic on exam; continue him dose of oral furosemide (4) Chronic atrial fibrillation Current Visit: No Status: Chronic Assessment and plan: Rate controlled; continue home dose of oral Cardizem in addition to digoxin Patient admitted to not taking Eliquis as prescribed Will hold home dose of Eliquis and continue heparin drip started in the ER due to acute lower extremity DVT (5) COPD (chronic obstructive pulmonary disease) Current Visit: No Status: Chronic Assessment and plan: Stable; continue home dose of Ellipta and Symbicort Qualifiers: COPD type: unspecified COPD Qualified Code(s): J44.9 - Chronic obstructive pulmonary disease, unspecified (6) GERD (gastroesophageal reflux disease) Current Visit: No Status: Chronic Qualifiers: Esophagitis presence: esophagitis presence not specified Qualified Code(s) : K21.9 - Gastro-esophageal reflux disease without esophagitis (7) Sleep apnea Current Visit: No Status: Chronic Assessment and plan: CPAP daily at bedtime Qualifiers: Sleep apnea type: unspecified type Qualified Code(s): G47.30 - Sleep apnea , unspecified (8) Depression Current Visit: No Status: Acute Assessment and plan: Continue home dose of Wellbutrin and Celexa Qualifiers: Depression Type: unspecified Qualified Code(s): F32.9 - Major depressive disorder, single episode, unspecified (9) CELSO (iron deficiency anemia) Current Visit: Yes Status: Acute Assessment and plan: Continue home dose of ferrous sulfate Qualifiers: Iron deficiency anemia type: unspecified iron deficiency Qualified Code(s) : D50.9 - Iron deficiency anemia, unspecified (10) Morbid obesity with BMI of 50.0-59.9, adult Current Visit: No Status: Chronic Assessment and plan: BMI of 54.9 (11) Tobacco abuse Current Visit: No Status: Acute Assessment and plan: Discussed with patient about smoking cessation - Time Spent With Patient Total time spent is greater than 50% in coordination of care (as documented) at patient's floor/unit and/or counseling patient:
[2017-12-26] MEDS ORDERED: Naloxone 0.4 MG/ML INJ IVP PRN (18:05)
[2017-12-26] MEDS ORDERED: NON-FORMULARY MEDICATION 1 EACH EACH (Oxygen [Oxygen] 2 L) NS PRN (18:11)
[2017-12-26] MEDS ORDERED: Acetaminophen 325 MG TABLET PO PRN (18:11)
[2017-12-26] MEDS ORDERED: *HR* OxyCODONE/APAP 7.5/325 TABLET PO PRN (20:00)
[2017-12-26] MEDS: Budesonide/Formoterol 160/4.5 MDI IH SCH (20:33)
[2017-12-26] MEDS: Simethicone 80 MG TAB.CHEW PO SCH (20:47)
[2017-12-26] MEDS: VITAMIN D3 PO SCH (21:12)
[2017-12-26] MEDS: CALCIUM CARBONATE PO SCH (21:12)
[2017-12-26] MEDS: Furosemide 40 MG TABLET PO SCH (21:24)
[2017-12-27 02:22] LABS: Basophils % 0.4 %; Eosinophils # 0.9 K/mcL (0.0-0.6); Eosinophils % 9.2 %; Hematocrit 33.4 % (35.3-44.9); Hemoglobin 10.1 g/dL (11.5-15.4); Immature Granulocytes % 0.5 % (0-4); Lymphocytes # 1.7 K/mcL (0.6-4.6); Lymphocytes % 17.6 %; Mean Corpuscular HGB Conc 30.2 g/dL (31.6-35.5); Mean Corpuscular Hemoglobin 22.9 pg (28.0-33.3); Mean Corpuscular Volume 75.7 fL (83.0-100.0); Mean Platelet Volume 9.1 fL (9.4-12.4); Monocytes # 0.6 K/mcL (0.0-1.3); Monocytes % 6.2 %; Neutrophils # 6.6 K/mcL (1.6-8.9); Platelet Count 422 K/mcL (140-400); Red Blood Count 4.41 M/mcL (3.82-4.97); Red Cell Distribution Width 16.2 % (11.5-14.5); Segmented Neutrophils % 66.1 %
[2017-12-27 02:48] LABS: BUN/Creatinine Ratio 15 (6-26); Blood Urea Nitrogen 13 mg/dL (8-23); Calcium 9.2 mg/dL (8.6-10.3); Carbon Dioxide 32 mEq/L (23-29); Chloride 100 mEq/L (98-107); Glucose 132 mg/dL (70-105); Osmolality,Calculated 284 (280-300); Potassium 3.9 mEq/L (3.5-5.1); Sodium 136 mEq/L (136-145); eGFR For African Americans > 60 (> 60); eGFR For Non-African Americans > 60 (> 60)
[2017-12-27] MEDS: Heparin 25,000 UNIT/500 ML D5W 25,000 UNIT/500 ML BAG IVC SCH (05:57)
[2017-12-27] MEDS: Budesonide/Formoterol 160/4.5 MDI IH SCH ×2 (07:34→19:59)
[2017-12-27] MEDS: *HR* Digoxin 0.25 MG TABLET PO SCH (08:05)
[2017-12-27] MEDS: Simethicone 80 MG TAB.CHEW PO SCH ×3 (08:05→20:28)
[2017-12-27] MEDS: *HR* HYDROcodone/Acet 5/325 mg TABLET PO PRN ×2 (08:05→15:26)
[2017-12-27] MEDS: Furosemide 40 MG TABLET PO SCH ×2 (08:05→17:24)
[2017-12-27] MEDS: Diltiazem CD (24hr) 240 MG CAPSULE PO SCH (08:07)
[2017-12-27] MEDS: Aspirin Enteric Coated 81 MG Tablet PO SCH (08:07)
[2017-12-27] MEDS: VITAMIN D3 PO SCH (08:08)
[2017-12-27] MEDS: CALCIUM CARBONATE PO SCH (08:08)
[2017-12-27] MEDS ORDERED: (Umeclidinium Bromide [Incruse Ellipta] 62.5 MCG) IH SCH (09:00)
--- NOTE | 2017-12-27 10:10 | Orthopedic Consult Note ---
Date of Encounter: 12/27/17 Time of Encounter: 09:00 Assessment and Plan (1) Left knee pain Current Visit: Yes Status: Acute Qualifiers: Chronicity: acute Qualified Code(s): M25.562 - Pain in left knee (2) DVT (deep venous thrombosis) Current Visit: Yes Status: Acute Qualifiers: DVT location: lower extremity Affected thrombotic vein of extremity: popliteal Chronicity: acute Laterality: left Qualified Code(s): I82.432 - Acute embolism and thrombosis of left popliteal vein (3) Difficulty walking Current Visit: Yes Status: Chronic (4) Status post revision of total replacement of left knee Current Visit: Yes Status: Chronic History of Present Illness Chief complaint: Left knee pain HPI: Ms. Lewis is a 67 year old female presenting to [facility] with left anterior thigh and knee pain. Patient is well known to [facility]. She is status post I&D Lt knee 08/07 and Left tkr revision 10/12/16 with the original knee replacement occurring per patient in 1995. She most recently was seen in office after falling out of her scooter onto the left knee on 12/13/17. She states her pain and instability has increased since most recent visit and starting appx 6 days ago she began to have trouble straightening the knee and called [facility] 5 days ago to see about earlier follow up appt. Patient then presented to [facility] ED yesterday for sudden onset different and worsening left knee pain. She states she was at physical therapy and the pain prevented her from getting off scooter to get to the restroom. In the ED she was found to have positive DVT left popliteal vein 12/26/17 and was admitted for anticoagulation as patient has been on Eliquis. In discussing with patient she states she has not had any further falls since 12/13 and states she does not recall any trauma to the knee since the fall. She states she has continued to have pain with ambulation since falling however only yesterday became to the point where she could not ambulate. She states she is to be on Eliquis per Dr. Romero with cardiology however she states that she "keeps forgetting the nighttime dose". She states she is aware of the risk of missed doses however states that she "just forgets". On exam patient is resting comfortably in bed with O2 per ID with no family available at bedside. She has the left leg flexed and the hip is externally rotated. She states it has been this way since last Monday (5 days ago). She is tender to palpation to the calf and lateral left knee. ROM left ankle and hip intact. With some coaxing patient is able to get left knee nearly fully extended nearly to her baseline. Neurovascularly intact. Xrays reviewed demonstrating: Long-stem revision arthroplasty and patellectomy at the left knee. There is mild periprosthetic lucency noted, similar to previous radiographs dated 12/14/2017 but mildly increased when compared to 08/08/2017. Assessment: Loosening left knee hardware, left popliteal dvt, difficulty with ambulation, left knee pain Plan: Discussed with Dr. Castanon. As there is evidence of loosening and patient having difficulty with ambulation will trial bracing to aid in stabilty. Patient is poor surgical candidate for any revision surgery given her present medical conditions as well as partial ambulatory status prior to DVT. Patient is at present being managed by hospitalist for DVT while on anticoagulation. Encourage continued physical therapy to work on ROM and safe transfers. Patient will keep outpatient follow up with [facility] We will continue to follow while inpatient. Thank you for this consultation. Past Med Surg Social Fam HX - Past Medical History Medical history: atrial fibrillation, CHF, COPD, GERD, hyperlipidemia, hypertension, other Psychiatric history: depression - Past Surgical History Surgical History: knee replacement, other - Social History Smoking Status: Former smoker Smokeless Tobacco Status: No Alcohol use: none Drug use: none - Family History Mother Adopted: No Family Member Ethnicity: Non- Living Status: Hx Family Cardiac Disorders: Yes (TIAs, CVA, HTN) Hx Family Respiratory Disorders: Yes Hx Family Cancer: Yes Hx Family GI Disorders: No Hx Family Endocrine Disorder: Yes Hx Family Neuromuscular Disorders: No Hx Family Neurologic Disorders: No Hx Family HEENT Disorders: No Hx Family Autoimmune Disorders: No Father Family Member Ethnicity: Non- Living Status: Age at : 79 Cause of : colon cancer Hx Family Cardiac Disorders: Yes Hx Family Respiratory Disorders: Yes Hx Family Cancer: Yes (Stomach) Hx Family GI Disorders: No Hx Family Genitourinary Disorders: No Hx Family Endocrine Disorder: No Hx Family Musculoskeletal Disorders: No Hx Family Neuromuscular Disorders: Yes Hx Family Neurologic Disorders: Yes Hx Family HEENT Disorders: No Hx Family Autoimmune Disorders: No Hx Family Reproductive Disorders: No Hx Family Psychosocial Disorders: No Hx Family Medical Disorders: No Brother Adopted: No Family Member Ethnicity: Non- Living Status: Still Living Hx Family Cardiac Disorders: Yes Hx Family Respiratory Disorders: No Hx Family Cancer: No Hx Family GI Disorders: No Hx Family Endocrine Disorder: Yes Hx Family Neuromuscular Disorders: No Hx Family Neurologic Disorders: Yes Hx Family HEENT Disorders: No Hx Family Autoimmune Disorders: No Sister Adopted: No Family Member Ethnicity: Non- Living Status: Still Living Hx Family Cardiac Disorders: Yes (HTN) Hx Family Respiratory Disorders: Yes (COPD, ASTHMA) Hx Family Cancer: No Hx Family GI Disorders: No Hx Family Endocrine Disorder: No Hx Family Neuromuscular Disorders: No Hx Family Neurologic Disorders: No Hx Family HEENT Disorders: No Hx Family Autoimmune Disorders: No Medications and Allergies Albuterol Sulfate [Ventolin Hfa] 2 puff IH Q6H PRN 03/13/16 [History] Apixaban [Eliquis] 5 mg PO Q12H 03/13/16 [History] Aspirin Enteric Coated [Aspirin EC] 81 mg PO DAILY 03/13/16 [History] BuPROPion [Wellbutrin] 100 mg PO BID 03/13/16 [History] Calcium Carbonate/Vitamin D3 [Oyster Shell Calcium-Vit D Tab] 500 mg PO BID [History] Citalopram [CeleXA] 60 mg PO DAILY 03/13/16 [History] Digoxin [Lanoxin] 0.25 mg PO DAILY 03/13/16 [History] Ferrous Sulfate 325 mg PO BIDWM 03/13/16 [History] Umeclidinium [place] [Incruse Ellipta] 62.5 mcg IH DAILY 08/01/16 [History] Mv,Ca,Min/Iron Fum/FA/Lyco/Lut [Sentry Multivit & Mineral Cplt] 1 tab PO DAILY 10/12/16 [History] Omeprazole [PriLOSEC] 40 mg PO DAILY 10/12/16 [History] Oxygen 2 l NS AD PRN 10/12/16 [History] Diltiazem HCl [Diltiazem ER] 240 mg PO DAILY 05/03/17 [History] Furosemide [Lasix] 80 mg PO BID 05/03/17 [History] Budesonide/Formoterol 160/4.5 [Symbicort 160/4.5] 2 puff IH BIDR 06/19/17 [ History] Mupirocin [Bactroban Oint] 1 appl TP AD 08/08/17 [History] Acetaminophen [Tylenol] 650 mg PO Q6HR PRN #30 tablet 08/12/17 [Rx] Polyethylene Glycol 3350 [MiraLAX] 17 gm PO DAILY PRN powd.pack 08/12/17 [Rx] Simethicone [Gas-X] 80 mg PO TID tab.chew 08/12/17 [Rx] Docusate [Colace] 100 mg PO BID PRN 08/29/17 [History] Doxycycline Hyclate [Vibramycin] 100 mg PO DAILY 12/26/17 [History] 3 Allergy/AdvReac Type Severity Reaction Status Date / Time lisinopril AdvReac Cough Verified 12/26/17 16:25 All Systems Reviewed: The remainder of the systems were reviewed and are negative Physical Exam - Constitutional Vitals: Temp Pulse Resp BP Pulse Ox 98.0 F 75 20 127/71 98 12/27/17 07:59 12/27/17 07:59 12/27/17 07:59 12/27/17 07:59 12/27/17 08:00 Results - Labs Result Diagrams: 12/27/17 02:04 12/27/17 02:04 Labs: Abnormal lab results Hgb 10.1 g/dL (11.5-15.4) L 12/27/17 02:04 Hct 33.4 % (35.3-44.9) L 12/27/17 02:04 MCV 75.7 fL (83.0-100.0) L 12/27/17 02:04 MCH 22.9 pg (28.0-33.3) L 12/27/17 02:04 MCHC 30.2 g/dL (31.6-35.5) L 12/27/17 02:04 RDW 16.2 % (11.5-14.5) H 12/27/17 02:04 Plt Count 422 K/mcL (140-400) H 12/27/17 02:04 MPV 9.1 fL (9.4-12.4) L 12/27/17 02:04 Eosinophils # 0.9 K/mcL (0.0-0.6) H 12/27/17 02:04 PT 14.8 Seconds (9.4-12.1) H 12/26/17 14:27 APTT 59.9 Seconds (26.0-36.0) H 12/27/17 08:17 Carbon Dioxide 32 mEq/L (23-29) H 12/27/17 02:04 Glucose 132 mg/dL (70-105) H 12/27/17 02:04 H & H 12/27/17 Range/Units 02:04 Hgb 10.1 L (11.5-15.4) g/dL Hct 33.4 L (35.3-44.9) % All other labs normal. Consult Discharge Plan - Plan Referrals: Edouard Cole MD [Primary Care Provider] -
--- NOTE | 2017-12-27 11:08 | Oncology Inp Consult Note ---
<Eva Howard L - Last Filed: 12/28/17 09:20> Date of Encounter: 12/28/17 Time of Encounter: 11:08 Assessment and Plan (1) DVT (deep venous thrombosis) Status: Acute Assessment and plan: Venous doppler reveals acute DVT in left popliteal vein. Patent has not been taking eliquis as prescribed, she has been taking once daily and forgetting her evening dose. Therefore, it does not appear that she has failed eliquis therapy. This is patients first thrombotic event. Appears provoked in the setting of recent surgical procedure, decreased mobility , recent injury and morbid obesity. Recommendation made to initiate Xarelto. Discussed dosing in detail with patient that BID dosing will be need for the first 21 days, following this Xarelto will be daily dosing. This should assist with patients compliance to AC , patient agreed with this thought process as well. She will need detention anticoagulation in the setting of DVT with high risk factors and A-Fib. We discussed the general timeline and course of DVT. I encouraged the proper use of AC therapy with patient to help prevent future thrombotic syndrome complications. Transition from heparin gtt to Xarelto when able per primary team, pending ortho workup will keep on heparin at this time in case of need for further ortho intervention. Qualifiers: DVT location: lower extremity Affected thrombotic vein of extremity: popliteal Chronicity: acute Laterality: left Qualified Code(s): I82.432 - Acute embolism and thrombosis of left popliteal vein (2) CELSO (iron deficiency anemia) Status: Acute Assessment and plan: Hgb 10.1. Appears to have microcytic, hypochromic anemia with thrombocytosis likely reactive, which is often seen with CELSO. Recheck Iron 27 with 8% saturation, Ferritin 79, B12 and folate are replete. Ordered venofer 400 mg x1 for repletion Tissue transglutaminase Atb for celiac-pending Denies any sign of bleeding such as hematocheiza or melena, no change in bowel movements. States she is UTD on colonoscopy which was performed 3 years ago with reported benign findings, patient was told she is to repeat in 10 years. Etiology unclear at this time. Will arrange for follow with Dr. Hernandez Qualifiers: Iron deficiency anemia type: unspecified iron deficiency Qualified Code(s) : D50.9 - Iron deficiency anemia, unspecified - Data of Consult Patient: new to practice Consult date: 12/27/17 Requesting Physician: Francesco Purcell Primary Care Provider: Edouard Cole MD - Consult Narrative Reason for consult: Acute LLE DVT History of present illness: Ms. Lewis is a 67 year old female significant for atrial fibrillation on eliquis, CHF, COPD, hyperlipidemia and hypertension with recent Left knee arthrotomy irrigation debridement and extensive synovectomy on 09/01/17, who presents to the ER on 12/26/17 due to left knee pain. Ms. Lewis reports worsening left anterior/lateral knee pain which has increased over the past week to the point where she is no longer able to easily bear weight due to her pain. LE venous doppler reveals acute DVT in the left popliteal vein. Hematology has been consulted for further recommendations for AC. In addition on imaging of the left tibia/fibula patient was found to have a mild periprosthetic lucency noted, which can be seen with mechanical loosening and/or infection. Ortho has been consulted. Ms. Lewis states she has taken Eliquis for "a couple of years" for her atrial fibrillation. She denies a past history of DVT or PE. She states her mobility has been quite poor since her left knee procedure and uses a motorized wheelchair for mobility, she ambulates very little. She reports recently falling from her motorized wheelchair with the wheelchair falling on her as she lost her balance while trying to hold open a bathroom door at a department store , this appears to have been an isolated event. She denies other falls at home. She states that over the past few months she has only been taking her eliquis only once daily instead of the prescribed twice daily because she often forgets her nighttime medications. She is a former smoker. BMI 51.8. Past Med Surg Social Fam HX - Past Medical History Medical history: atrial fibrillation, CHF, COPD, GERD, hyperlipidemia, hypertension, other Psychiatric history: depression - Past Surgical History Surgical History: knee replacement, other - Social History Smoking Status: Former smoker Smokeless Tobacco Status: No Alcohol use: none Drug use: none - Family History Mother Adopted: No Family Member Ethnicity: Non- Living Status: Hx Family Cardiac Disorders: Yes (TIAs, CVA, HTN) Hx Family Respiratory Disorders: Yes Hx Family Cancer: Yes Hx Family GI Disorders: No Hx Family Endocrine Disorder: Yes Hx Family Neuromuscular Disorders: No Hx Family Neurologic Disorders: No Hx Family HEENT Disorders: No Hx Family Autoimmune Disorders: No Father Family Member Ethnicity: Non- Living Status: Age at : 79 Cause of : colon cancer Hx Family Cardiac Disorders: Yes Hx Family Respiratory Disorders: Yes Hx Family Cancer: Yes (Stomach) Hx Family GI Disorders: No Hx Family Genitourinary Disorders: No Hx Family Endocrine Disorder: No Hx Family Musculoskeletal Disorders: No Hx Family Neuromuscular Disorders: Yes Hx Family Neurologic Disorders: Yes Hx Family HEENT Disorders: No Hx Family Autoimmune Disorders: No Hx Family Reproductive Disorders: No Hx Family Psychosocial Disorders: No Hx Family Medical Disorders: No Brother Adopted: No Family Member Ethnicity: Non- Living Status: Still Living Hx Family Cardiac Disorders: Yes Hx Family Respiratory Disorders: No Hx Family Cancer: No Hx Family GI Disorders: No Hx Family Endocrine Disorder: Yes Hx Family Neuromuscular Disorders: No Hx Family Neurologic Disorders: Yes Hx Family HEENT Disorders: No Hx Family Autoimmune Disorders: No Sister Adopted: No Family Member Ethnicity: Non- Living Status: Still Living Hx Family Cardiac Disorders: Yes (HTN) Hx Family Respiratory Disorders: Yes (COPD, ASTHMA) Hx Family Cancer: No Hx Family GI Disorders: No Hx Family Endocrine Disorder: No Hx Family Neuromuscular Disorders: No Hx Family Neurologic Disorders: No Hx Family HEENT Disorders: No Hx Family Autoimmune Disorders: No Medications and Allergies Albuterol Sulfate [Ventolin Hfa] 2 puff IH Q6H PRN 03/13/16 [History] Aspirin Enteric Coated [Aspirin EC] 81 mg PO DAILY 03/13/16 [History] BuPROPion [Wellbutrin] 100 mg PO BID 03/13/16 [History] Calcium Carbonate/Vitamin D3 [Oyster Shell Calcium-Vit D Tab] 500 mg PO BID [History] Citalopram [CeleXA] 60 mg PO DAILY 03/13/16 [History] Digoxin [Lanoxin] 0.25 mg PO DAILY 03/13/16 [History] Ferrous Sulfate 325 mg PO BIDWM 03/13/16 [History] Umeclidinium [place] [Incruse Ellipta] 62.5 mcg IH DAILY 08/01/16 [History] Mv,Ca,Min/Iron Fum/FA/Lyco/Lut [Sentry Multivit & Mineral Cplt] 1 tab PO DAILY 10/12/16 [History] Omeprazole [PriLOSEC] 40 mg PO DAILY 10/12/16 [History] Oxygen 2 l NS AD PRN 10/12/16 [History] Diltiazem HCl [Diltiazem ER] 240 mg PO DAILY 05/03/17 [History] Furosemide [Lasix] 80 mg PO BID 05/03/17 [History] Budesonide/Formoterol 160/4.5 [Symbicort 160/4.5] 2 puff IH BIDR 06/19/17 [ History] Mupirocin [Bactroban Oint] 1 appl TP AD 08/08/17 [History] Acetaminophen [Tylenol] 650 mg PO Q6HR PRN #30 tablet 08/12/17 [Rx] Polyethylene Glycol 3350 [MiraLAX] 17 gm PO DAILY PRN powd.pack 08/12/17 [Rx] Simethicone [Gas-X] 80 mg PO TID tab.chew 08/12/17 [Rx] Docusate [Colace] 100 mg PO BID PRN 08/29/17 [History] Doxycycline Hyclate [Vibramycin] 100 mg PO DAILY 12/26/17 [History] Cholecalciferol (D-3) [Vitamin D] 1,000 unit PO DAILY tablet 12/28/17 [Rx] Oxycodone HCl/Acetaminophen [Percocet 5-325 mg Tablet] 1 each PO Q8HR PRN 5 Days #15 tablet 12/28/17 [Rx] Rivaroxaban [Xarelto] 1 dose PO AD 30 Days pack 12/28/17 [Rx] 3 Allergy/AdvReac Type Severity Reaction Status Date / Time lisinopril AdvReac Cough Verified 12/26/17 16:25 Constitutional: Present: fatigue, weakness. Absent: chills, fever(s) Eyes: Absent: change in vision Nose, mouth and throat: Absent: dysphagia Cardiovascular: Absent: chest pain, irregular heart rhythm, palpitations Respiratory: Absent: cough, dyspnea, hemoptysis, pain on inspiration Gastrointestinal: Absent: abdominal pain, change in bowel habits, hematemesis, hematochezia, melena, nausea, vomiting Genitourinary: Absent: dysuria, hematuria Musculoskeletal: Present: as per HPI, arthralgias, limited range of motion ( left knee), muscle weakness Neurological: Absent: focal weakness, frequent falls Psychiatric: Absent: change in appetite Hematologic/Lymphatic: Present: as per HPI Oncology - Exam - Constitutional Vitals: Temp Pulse Resp BP Pulse Ox 98.0 F 75 20 127/71 98 12/27/17 07:59 12/27/17 07:59 12/27/17 07:59 12/27/17 07:59 12/27/17 08:00 General appearance: cooperative, morbidly obese, no acute distress, no febrile - Head Head exam: Present: atraumatic - ENT ENT exam: Present: mucous membranes moist - Respiratory Respiratory exam: Present: CTAB. Absent: respiratory distress - Cardiovascular Cardiovascular exam: Present: RRR, +S1, +S2 - GI/Abdominal GI/Abdominal exam: Present: normal bowel sounds, soft. Absent: tenderness - Extremities Exam Additional comments: BLE Edema with L>R, chronic skin changes noted to LLE with calf warmth and erythema, scattered scabs to LLE - Neurological Exam Neurological exam: Present: alert, oriented X3, no focal deficits, strengths equal and symetr throughout - Psychiatric Psychiatric exam: Present: normal affect, normal mood - Skin Skin exam: Present: dry, normal color, warm Additional comments: refer to lower extremity exam Oncology - Results Labs: Short CBC 12/27/17 Range/Units 02:04 WBC 9.9 (4.3-11.1) K/mcL Hgb 10.1 L (11.5-15.4) g/dL Hct 33.4 L (35.3-44.9) % Plt Count 422 H (140-400) K/mcL Neutrophils # 6.6 (1.6-8.9) K/mcL BMP 12/27/17 02:04 Sodium 136 Potassium 3.9 Chloride 100 Carbon Dioxide 32 H BUN 13 Creatinine 0.85 Glucose 132 H Calcium 9.2 Consult Discharge Plan - Plan Referrals: Thu Leon PAC [Physician Public Relations Assistant] - 01/03/18 1:30 pm Edouard Cole MD [Primary Care Provider] - 01/04/18 9:45 am Prescriptions: Oxycodone HCl/Acetaminophen [Percocet 5-325 mg Tablet] 1 each PO Q8HR PRN 5 Days #15 tablet PRN Reason: Pain Rivaroxaban [Xarelto] 1 dose PO AD 30 Days pack <Ramirez Hernandez S - Last Filed: 12/28/17 13:29> Date of Encounter: 12/28/17 - Data of Consult Requesting Physician: Francesco Purcell Primary Care Provider: Edouard Cole MD - Consult Narrative History of present illness: Ms. Lewis is a 67 year old female Oncology - Exam - Constitutional Vitals: Temp Pulse Resp BP Pulse Ox 98.0 F 74 20 129/76 94 12/27/17 15:54 12/27/17 15:54 12/27/17 15:54 12/27/17 15:54 12/27/17 15:54 Oncology - Results Labs: Short CBC 12/27/17 Range/Units 02:04 WBC 9.9 (4.3-11.1) K/mcL Hgb 10.1 L (11.5-15.4) g/dL Hct 33.4 L (35.3-44.9) % Plt Count 422 H (140-400) K/mcL Neutrophils # 6.6 (1.6-8.9) K/mcL BMP 12/27/17 02:04 Sodium 136 Potassium 3.9 Chloride 100 Carbon Dioxide 32 H BUN 13 Creatinine 0.85 Glucose 132 H Calcium 9.2 - Attending Attestation 1. Iron deficiency anemia. She has Scopes coming up. Etiology of iron deficiency not clear. 2. DVT left lower extremity. This is her first episode. She has several risk factors. Medically significant obesity She is very deconditioned on a motorized wheelchair. She had several procedures done to the left leg. She had what sign of nephrectomy most recent procedure was August 2017 she had an elevated to me She was on Eliquis prior to this hospitalization but apparently taking it once a day. She forgets to take the nighttime dose. She was on Elequis for atrial fibrillation For compliance reasons we can switch her to Xarelto 20 mg once a day on discharge. 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 B12 low normal at 271. B12 55805 mcg IM. Work up for pernicious anemia
[2017-12-27 12:28] LABS: % Iron Saturation 8 % (15-50); Ferritin 79 ng/ml (10-120); Iron 27 mcg/dL (50-170); Transferrin 229 mg/dL (203-362)
[2017-12-27 12:29] LABS: Folate 9.9 ng/mL (3.0-16.0)
--- NOTE | 2017-12-27 15:33 | Internal Med Progress Note ---
Date of Encounter: 12/27/17 Time of Encounter: 15:31 - Assessment and plan (1) DVT (deep venous thrombosis) Current Visit: Yes Status: Acute Assessment and plan: Risk factors: obesity, tobacco abuse, post-operation s/p Left knee arthrotomy irrigation debridement and extensive synovectomy on 08/07 Patient reports a one-week history of left anterior/lateral knee pain In the ER, patient was found to have an acute embolism and thrombosis of the left popliteal vein. Patient had been on Eliquis for atrial fibrillation but admits to not taking medication as prescribed; she only took medication once daily instead of twice daily for the last 2 months Hematology oncology consulted from the ER and appreciate recommendations Start Xarelto tonight and DC heparin drip at that time Qualifiers: DVT location: lower extremity Affected thrombotic vein of extremity: popliteal Chronicity: acute Laterality: left Qualified Code(s): I82.432 - Acute embolism and thrombosis of left popliteal vein (2) COPD (chronic obstructive pulmonary disease) Current Visit: No Status: Chronic Assessment and plan: Stable; continue home dose of Ellipta and Symbicort No acute exacerbation Qualifiers: COPD type: unspecified COPD Qualified Code(s): J44.9 - Chronic obstructive pulmonary disease, unspecified (3) Morbid obesity with BMI of 50.0-59.9, adult Current Visit: No Status: Chronic Assessment and plan: BMI of 54.9 This is another risk factor of DVT. (4) GERD (gastroesophageal reflux disease) Current Visit: No Status: Chronic Assessment and plan: No acute issues. Qualifiers: Esophagitis presence: esophagitis presence not specified Qualified Code(s) : K21.9 - Gastro-esophageal reflux disease without esophagitis (5) Tobacco abuse Current Visit: No Status: Acute Assessment and plan: Patient had discussion about smoking cessation. This is another risk factor for DVT. (6) Depression Current Visit: No Status: Acute Assessment and plan: Continue Wellbutrin and Celexa Qualifiers: Depression Type: unspecified Qualified Code(s): F32.9 - Major depressive disorder, single episode, unspecified (7) Sleep apnea Current Visit: No Status: Chronic Assessment and plan: CPAP daily at bedtime Qualifiers: Sleep apnea type: unspecified type Qualified Code(s): G47.30 - Sleep apnea , unspecified (8) Chronic atrial fibrillation Current Visit: No Status: Chronic Assessment and plan: Rate controlled; continue home dose of oral Cardizem in addition to digoxin Patient admitted to not taking Eliquis as prescribed, states because she keeps forgetting. Per Ortho note, no surgical intervention warranted at this moment. Will resume anticoagulation; change to Xarelto to improve compliance. - Start Xarelto tonight at 2100 and discontinue heparin drip at that time. (9) History of total knee arthroplasty Current Visit: No Status: Chronic Assessment and plan: s/p Left knee arthrotomy irrigation debridement and extensive synovectomy on 08/07, In the ER, imaging of the left tibia/fibula patient was found to have a mild periprosthetic lucency noted, which can be seen with mechanical loosening and/ or infection. Orthopedics was consulted from the ER and appreciate recommendations Qualifiers: Laterality: left Qualified Code(s): Z96.652 - Presence of left artificial knee joint (10) Chronic diastolic CHF (congestive heart failure) Current Visit: No Status: Acute Assessment and plan: Patient euvolemic on exam; continue him dose of oral furosemide No acute issues (11) CELSO (iron deficiency anemia) Current Visit: Yes Status: Acute Qualifiers: Iron deficiency anemia type: unspecified iron deficiency Qualified Code(s) : D50.9 - Iron deficiency anemia, unspecified - Time Spent With Patient Total time spent is greater than 50% in coordination of care (as documented) at patient's floor/unit and/or counseling patient: - Subjective Interval history: Patient having severe left pain. Denies fevers/chills, n/v. Unable to ambulate. - Constitutional Vitals: Temp Pulse Resp BP Pulse Ox 97.9 F 77 21 115/79 97 12/27/17 11:05 12/27/17 11:05 12/27/17 11:05 12/27/17 11:05 12/27/17 11:05 General appearance: Present: A&O X 3, no acute distress Exam: - Eye Eye exam: Present: normal appearance - ENT ENT exam: Present: mucous membranes moist - Respiratory Respiratory exam: Present: CTAB. Absent: accessory muscle use, rales, rhonchi, wheezes - Cardiovascular Cardiovascular exam: Present: RRR, +S1, +S2. Absent: diastolic murmur, gallop, rubs, systolic murmur - GI/Abdominal GI/Abdominal exam: Present: normal bowel sounds, soft, no peritoneal signs. Absent: distended, tenderness - Expanded Lower Extremities Exam Knee exam: Present: tenderness (left knee) - Neurological Exam Neurological exam: Present: oriented X3 - Psychiatric Psychiatric exam: Present: normal mood - Skin Skin exam: Present: normal color Internal Medicine: Result - Labs CBC & Chem 7: 12/27/17 02:04 12/27/17 02:04 Labs: Short CBC 12/27/17 Range/Units 02:04 WBC 9.9 (4.3-11.1) K/mcL Hgb 10.1 L (11.5-15.4) g/dL Hct 33.4 L (35.3-44.9) % Plt Count 422 H (140-400) K/mcL Neutrophils # 6.6 (1.6-8.9) K/mcL BMP 12/27/17 02:04 Sodium 136 Potassium 3.9 Chloride 100 Carbon Dioxide 32 H BUN 13 Creatinine 0.85 Glucose 132 H Calcium 9.2 - ABG Interpretation ABG results: PT/INR, D-dimer PT 14.8 Seconds (9.4-12.1) H 12/26/17 14:27 Consult Discharge Plan - Plan Referrals: Edouard Cole MD [Primary Care Provider] -
[2017-12-27] MEDS ORDERED: Iron Sucrose Complex 400 MG in 0.9 % Sodium Chloride 250 ML IVPB ONE (18:23)
[2017-12-27] MEDS: *HR* Rivaroxaban 15 MG TABLET PO SCH (20:28)
[2017-12-28] MEDS: Budesonide/Formoterol 160/4.5 MDI IH SCH (07:43)
[2017-12-28] MEDS: *HR* HYDROcodone/Acet 5/325 mg TABLET PO PRN ×2 (08:03→14:30)
[2017-12-28] MEDS: Diltiazem CD (24hr) 240 MG CAPSULE PO SCH (08:04)
[2017-12-28] MEDS: Simethicone 80 MG TAB.CHEW PO SCH ×2 (08:04→14:30)
[2017-12-28] MEDS: *HR* Rivaroxaban 15 MG TABLET PO SCH (08:04)
[2017-12-28] MEDS: Aspirin Enteric Coated 81 MG Tablet PO SCH (08:04)
[2017-12-28] MEDS: *HR* Digoxin 0.25 MG TABLET PO SCH (08:04)
[2017-12-28] MEDS: Furosemide 40 MG TABLET PO SCH (08:04)
--- NOTE | 2017-12-28 08:46 | Physician Discharge Referral ---
Home Health/Hosp Referral Info Transfer to: Home Health Provider in Charge Post Discharge: PCP - Diagnosis (1) DVT (deep venous thrombosis) Priority: Primary Status: Acute (2) COPD (chronic obstructive pulmonary disease) Priority: Secondary Status: Chronic (3) Morbid obesity with BMI of 50.0-59.9, adult Priority: Secondary Status: Chronic (4) GERD (gastroesophageal reflux disease) Priority: Secondary Status: Chronic (5) Tobacco abuse Priority: Secondary Status: Acute (6) Depression Priority: Secondary Status: Acute (7) Sleep apnea Priority: Secondary Status: Chronic (8) Chronic atrial fibrillation Priority: Secondary Status: Chronic (9) History of total knee arthroplasty Priority: Secondary Status: Chronic (10) Chronic diastolic CHF (congestive heart failure) Priority: Secondary Status: Acute (11) CELSO (iron deficiency anemia) Priority: Secondary Status: Acute - Respiratory Orders Oxygen / L per min Smoking Cessation: Smoking cessation has been advised. For more information, call the [place] Tobacco Quit Line at 5-892-FBTT-NOW. - Diet/Nutrition Diet/Nutrition Orders: Cardiac - Activity Activity: List: as per physical therapy - Services Needed Following services are medically necessary services: Nursing, Home Health Aide, Physical Therapy, Occupational Therapy - Transfer Medications Prescriptions: Rivaroxaban [Xarelto] 1 dose PO AD 30 Days pack Home Medications: Albuterol Sulfate [Ventolin Hfa] 2 puff IH Q6H PRN 03/13/16 [History] Apixaban [Eliquis] 5 mg PO Q12H 03/13/16 [History] Aspirin Enteric Coated [Aspirin EC] 81 mg PO DAILY 03/13/16 [History] BuPROPion [Wellbutrin] 100 mg PO BID 03/13/16 [History] Calcium Carbonate/Vitamin D3 [Oyster Shell Calcium-Vit D Tab] 500 mg PO BID [History] Citalopram [CeleXA] 60 mg PO DAILY 03/13/16 [History] Digoxin [Lanoxin] 0.25 mg PO DAILY 03/13/16 [History] Ferrous Sulfate 325 mg PO BIDWM 03/13/16 [History] Umeclidinium [place] [Incruse Ellipta] 62.5 mcg IH DAILY 08/01/16 [History] Mv,Ca,Min/Iron Fum/FA/Lyco/Lut [Sentry Multivit & Mineral Cplt] 1 tab PO DAILY 10/12/16 [History] Omeprazole [PriLOSEC] 40 mg PO DAILY 10/12/16 [History] Oxygen 2 l NS AD PRN 10/12/16 [History] Diltiazem HCl [Diltiazem ER] 240 mg PO DAILY 05/03/17 [History] Furosemide [Lasix] 80 mg PO BID 05/03/17 [History] Budesonide/Formoterol 160/4.5 [Symbicort 160/4.5] 2 puff IH BIDR 06/19/17 [ History] Mupirocin [Bactroban Oint] 1 appl TP AD 08/08/17 [History] Acetaminophen [Tylenol] 650 mg PO Q6HR PRN #30 tablet 08/12/17 [Rx] Polyethylene Glycol 3350 [MiraLAX] 17 gm PO DAILY PRN powd.pack 08/12/17 [Rx] Simethicone [Gas-X] 80 mg PO TID tab.chew 08/12/17 [Rx] Docusate [Colace] 100 mg PO BID PRN 08/29/17 [History] Doxycycline Hyclate [Vibramycin] 100 mg PO DAILY 12/26/17 [History] Rivaroxaban [Xarelto] 1 dose PO AD 30 Days pack 12/28/17 [Rx] Allergies/Adverse Reactions: 3 Allergy/AdvReac Type Severity Reaction Status Date / Time lisinopril AdvReac Cough Verified 12/26/17 16:25 Certification: Further, I certify that my clinical findings support that this patient is homebound (i.e. absences from home require considerable and taxing effort and are for medical reasons or mandaeism services or infrequently or short duration when for other reasons) because: Homebound Reason: Patient requires assistance of a person or device to safely leave home Attestation: My signature below is to certify that this patient is under my care and that I, or nurse practitioner, or a physician's medical record assistant working with me, has a face-to -face encounter with this patient.
--- NOTE | 2017-12-28 08:48 | Discharge Summary ---
- NOTES TO OUTPATIENT PROVIDER Notes to Outpatient Provider: - Compliance with anticoagulation medication. Patient kept forgetting to take night time dose of Eliquis. - Repeat ultrasound of left leg to evaluate for any changes. Orders not resulted at time of discharge: Pending orders 12/27/17 08:41 MRSA Surveillance Screen [MOLMIC] Routine 12/27/17 18:22 Occult Blood,Stool [BF] Routine 12/28/17 05:06 Tissue Transglutaminase Ab,IgA AM 0400 12/28/17 10:20 PTT [Activated Partial Thrombo Time] [COAG] Timed Date of Encounter: 12/28/17 Time of Encounter: 08:46 - Discharge Diagnosis (1) DVT (deep venous thrombosis) Priority: Primary Status: Acute Assessment and Plan: Non-compliance in obese, smoker, with recent surgery who forgot to take Eliquis BID. Qualifiers: DVT location: lower extremity Affected thrombotic vein of extremity: popliteal Chronicity: acute Laterality: left Qualified Code(s): I82.432 - Acute embolism and thrombosis of left popliteal vein (2) COPD (chronic obstructive pulmonary disease) Priority: Secondary Status: Chronic Assessment and Plan: Stable; continue home dose of Ellipta and Symbicort No acute exacerbation Qualifiers: COPD type: unspecified COPD Qualified Code(s): J44.9 - Chronic obstructive pulmonary disease, unspecified (3) Morbid obesity with BMI of 50.0-59.9, adult Priority: Secondary Status: Chronic Assessment and Plan: BMI of 54.9 This is another risk factor of DVT. (4) GERD (gastroesophageal reflux disease) Priority: Secondary Status: Chronic Qualifiers: Esophagitis presence: esophagitis presence not specified Qualified Code(s) : K21.9 - Gastro-esophageal reflux disease without esophagitis (5) Tobacco abuse Priority: Secondary Status: Acute Assessment and Plan: Patient had discussion about smoking cessation. This is another risk factor for DVT. (6) Depression Priority: Secondary Status: Acute Qualifiers: Depression Type: unspecified Qualified Code(s): F32.9 - Major depressive disorder, single episode, unspecified (7) Sleep apnea Priority: Secondary Status: Chronic Qualifiers: Sleep apnea type: unspecified type Qualified Code(s): G47.30 - Sleep apnea , unspecified (8) Chronic atrial fibrillation Priority: Secondary Status: Chronic (9) History of total knee arthroplasty Priority: Secondary Status: Chronic Assessment and Plan: s/p Left knee arthrotomy irrigation debridement and extensive synovectomy on 08/07, Qualifiers: Laterality: left Qualified Code(s): Z96.652 - Presence of left artificial knee joint (10) Chronic diastolic CHF (congestive heart failure) Priority: Secondary Status: Acute (11) CELSO (iron deficiency anemia) Priority: Secondary Status: Acute Qualifiers: Iron deficiency anemia type: unspecified iron deficiency Qualified Code(s) : D50.9 - Iron deficiency anemia, unspecified Hospital course: Ms. Lewis is a 67 year old female with past medical history significant for atrial fibrillation, CHF, COPD, hyperlipidemia and hypertension with recent Left knee arthrotomy irrigation debridement and extensive synovectomy on 09/01/17 , who presents to the ER on 12/26/17 due to left knee pain for one week. In the ER, patient was found to have an acute embolism and thrombosis of the left popliteal vein. In addition on imaging of the left tibia/fibula patient was found to have a mild periprosthetic lucency noted, which can be seen with mechanical loosening and/or infection. Orthopedics and hematology/oncology was consulted from the ER and patient was be admitted to medical surgical floor for left lower extremity DVT and concern for periprosthetic loosening. She was started on heparin drip. Orthopedic Surgery evaluated patient and reviewed imaging. Patient is poor surgical candidate and they recommend to continue PT/OT and no surgery. Hematology/Oncology evaluated patient, recommended Xarelto instead of Eliquis to improve compliance. Patient was not taking Eliquis BID as prescribed. She frequently missed doses. Patient transition to oral Xaralto while in hospital. She is being discharged in stable condition. We are running Xarelto through and to see if insurance will cover it. We discussed compliance. PT/OT to see patient, likely home with physical therapy. - Time Spent with Patient Total time spent providing and/or coordinating discharge services: - Discharge Medications Prescriptions: Rivaroxaban [Xarelto] 1 dose PO AD 30 Days pack Home Medications: Albuterol Sulfate [Ventolin Hfa] 2 puff IH Q6H PRN 03/13/16 [History] Aspirin Enteric Coated [Aspirin EC] 81 mg PO DAILY 03/13/16 [History] BuPROPion [Wellbutrin] 100 mg PO BID 03/13/16 [History] Calcium Carbonate/Vitamin D3 [Oyster Shell Calcium-Vit D Tab] 500 mg PO BID [History] Citalopram [CeleXA] 60 mg PO DAILY 03/13/16 [History] Digoxin [Lanoxin] 0.25 mg PO DAILY 03/13/16 [History] Ferrous Sulfate 325 mg PO BIDWM 03/13/16 [History] Umeclidinium [place] [Incruse Ellipta] 62.5 mcg IH DAILY 08/01/16 [History] Mv,Ca,Min/Iron Fum/FA/Lyco/Lut [Sentry Multivit & Mineral Cplt] 1 tab PO DAILY 10/12/16 [History] Omeprazole [PriLOSEC] 40 mg PO DAILY 10/12/16 [History] Oxygen 2 l NS AD PRN 10/12/16 [History] Diltiazem HCl [Diltiazem ER] 240 mg PO DAILY 05/03/17 [History] Furosemide [Lasix] 80 mg PO BID 05/03/17 [History] Budesonide/Formoterol 160/4.5 [Symbicort 160/4.5] 2 puff IH BIDR 06/19/17 [ History] Mupirocin [Bactroban Oint] 1 appl TP AD 08/08/17 [History] Acetaminophen [Tylenol] 650 mg PO Q6HR PRN #30 tablet 08/12/17 [Rx] Polyethylene Glycol 3350 [MiraLAX] 17 gm PO DAILY PRN powd.pack 08/12/17 [Rx] Simethicone [Gas-X] 80 mg PO TID tab.chew 08/12/17 [Rx] Docusate [Colace] 100 mg PO BID PRN 08/29/17 [History] Doxycycline Hyclate [Vibramycin] 100 mg PO DAILY 12/26/17 [History] Cholecalciferol (D-3) [Vitamin D] 1,000 unit PO DAILY tablet 12/28/17 [Rx] Oxycodone HCl/Acetaminophen [Percocet 5-325 mg Tablet] 1 each PO Q8HR PRN 5 Days #15 tablet 12/28/17 [Rx] Rivaroxaban [Xarelto] 1 dose PO AD 30 Days pack 12/28/17 [Rx] Allergies/Adverse Reactions: 3 Allergy/AdvReac Type Severity Reaction Status Date / Time lisinopril AdvReac Cough Verified 12/26/17 16:25 Date of admission: 12/26/17 16:28 Primary care physician: Edouard Cole MD Consults: 12/27/17 08:10 Consult to [facility] [employer] [facility] [CONS] Stat Reason for SW Consult: patient has home health 12/28/17 08:43 Consult to Occupational Therapy [CONS] Routine Comment: Evaluate, develop and implement POC Reason for Consult: Evaluate, develop and implement POC Does patient have active BEDREST order?: No Is patient medically & hemodynamically stable?: Yes Consult to Physical Therapy [CONS] Routine Comment: Evaluate, develop and implement POC Reason for Consult: Disposition planning. Therapy - weakness in bed. Does patient have active BEDREST order?: No Is patient medically & hemodynamically stable?: Yes Discharging clinician: Mayra Winters - Constitutional Vitals: Temp Pulse Resp BP Pulse Ox 97.9 F 73 18 129/71 98 12/28/17 06:34 12/28/17 06:34 12/28/17 07:43 12/28/17 06:34 12/28/17 07:43 General appearance: Present: A&O X 3, no acute distress Exam: - Eye Eye exam: Present: normal appearance - ENT ENT exam: Present: mucous membranes moist - Respiratory Respiratory exam: Present: CTAB. Absent: accessory muscle use, rales, rhonchi, wheezes - Cardiovascular Cardiovascular exam: Present: RRR, +S1, +S2. Absent: diastolic murmur, gallop, rubs, systolic murmur - GI/Abdominal GI/Abdominal exam: Present: normal bowel sounds, soft, no peritoneal signs. Absent: distended, tenderness - Expanded Lower Extremities Exam Knee exam: Present: tenderness (left knee) - Neurological Exam Neurological exam: Present: oriented X3 - Psychiatric Psychiatric exam: Present: normal mood - Skin Skin exam: Present: normal color - Patient Status Disposition: Home Health Service Condition: Fair Functional capacity at discharge: uses cane/walker Overall status at discharge: patient is progressing back to baseline - Discharge Instructions Follow Up With: Edouard Cole MD [Primary Care Provider] - - Diet and Activity Activity: as per physical therapy Diet: advance to your usual diet
[2017-12-28] MEDS ORDERED: Cholecalciferol (D-3) 1,000 UNIT TABLET PO SCH (09:00)
[2017-12-28] MEDS ORDERED: Tiotropium 18 MCG inhalation IH SCH (10:00)
[2017-12-28 10:11] VITALS: BP 138/74
[2017-12-28 10:13] LABS: Activated Partial Thrombo Time 40.8 Seconds (26.0-36.0)
[2017-12-28] MEDS ORDERED: Cyanocobalamin (B-12) 1,000 MCG/ML VIAL SQ ONE (13:57)
[2017-12-28] MEDS ORDERED: *HR* HYDROcodone/Acet 5/325 mg TABLET PO PRN (15:16)
[2017-12-28] MEDS ORDERED: Permethrin Cream Rinse 60 ML LIQUID TP ONE (15:52)
[2017-12-30 08:04] LABS: Tissue Transglutaminase IgA 0 U/mL (0-3)
== END 2017-12-28 16:45 | disposition home health service (06) | DRG 300 ==
LOC: EMEROO 11:52 → 3ANU 16:28
PROVIDERS: ADMIT Hospitalist; ATTEND Hospitalist

== ENCOUNTER 2018-03-20 08:26 | Inpatient (IN) ==
--- NOTE | 2018-03-20 08:41 | Emergency Department Note ---
Disposition Clinical Impression: Atrial fibrillation with RVR, Hyponatremia Cellulitis Qualifiers: Site of cellulitis: extremity Site of cellulitis of extremity: lower extremity Laterality: left Qualified Code(s): L03.116 - Cellulitis of left lower limb Disposition: Admitted As Inpatient Condition: Good Referrals: Edouard Cole MD [Primary Care Provider] - Forms: ED Satisfaction Letter General Adult HPI - General Chief complaint: ED Altered Mental Status Stated complaint: AMS Time Seen by Provider: 03/20/18 08:36 Source: patient, EMS Mode of arrival: EMS Limitations: no limitations Nursing Notes Reviewed: Yes Vital Signs Reviewed: Yes - History of Present Illness HPI Narrative: This is a 67-year-old female brought in by EMS for altered family perceived was confusion. Apparently the family was also confused as to what was actually going on with the patient is well. They state that she fell from standing and was unable to get up on her own, and was found this morning incontinent of urine and stool. As a result, they called EMS after getting the patient cleaned up. She arrives alert to herself seems confused in terms of month and year. She reports development of erythema around her left knee and left lower leg since she started using topical lidocaine and a spray anesthetic on that area. She states that she had the left knee replaced about 9 months ago. Pain Scale: 8 - Related Data Home Medications Medication Instructions Recorded Confirmed Albuterol Sulfate [Ventolin Hfa] 2 puff IH Q6H PRN 03/13/16 01/17/18 Aspirin Enteric Coated [Aspirin EC] 81 mg PO DAILY 03/13/16 01/17/18 BuPROPion [Wellbutrin] 100 mg PO BID 03/13/16 01/17/18 Calcium Carbonate/Vitamin D3 500 mg PO BID 03/13/16 01/17/18 [Oyster Shell Calcium-Vit D Tab] Citalopram [CeleXA] 60 mg PO DAILY 03/13/16 01/17/18 Digoxin [Lanoxin] 0.25 mg PO DAILY 03/13/16 01/17/18 Ferrous Sulfate 325 mg PO BIDWM 03/13/16 01/17/18 Umeclidinium [place] [Incruse 62.5 mcg IH DAILY 08/01/16 01/17/18 Ellipta] Mv,Ca,Min/Iron Fum/FA/Lyco/Lut 1 tab PO DAILY 10/12/16 01/17/18 [Sentry Multivit & Mineral Cplt] Omeprazole [PriLOSEC] 40 mg PO DAILY 10/12/16 01/17/18 Oxygen 2 l NS AD PRN 10/12/16 01/17/18 Diltiazem HCl [Diltiazem ER] 240 mg PO DAILY 05/03/17 01/17/18 Furosemide [Lasix] 80 mg PO BID 05/03/17 01/17/18 Budesonide/Formoterol 160/4.5 2 puff IH BIDR 06/19/17 01/17/18 [Symbicort 160/4.5] Mupirocin [Bactroban Oint] 1 appl TP AD 08/08/17 01/17/18 Docusate [Colace] 100 mg PO BID PRN 08/29/17 01/17/18 Doxycycline Hyclate [Vibramycin] 100 mg PO DAILY 12/26/17 01/17/18 HYDROcodone/Acet 5/325 mg [[place] 1 tab PO Q8H PRN 01/17/18 01/17/18 5-325 mg] Gabapentin [Neurontin] 300 mg PO HS 02/27/18 02/27/18 Previous Rx's Medication Instructions Recorded Acetaminophen [Tylenol] 650 mg PO Q6HR PRN #30 tablet 08/12/17 Polyethylene Glycol 3350 [MiraLAX] 17 gm PO DAILY PRN powd.pack 08/12/17 Simethicone [Gas-X] 80 mg PO TID tab.chew 08/12/17 Cholecalciferol (D-3) [Vitamin D] 1,000 unit PO DAILY tablet 12/28/17 Rivaroxaban [Xarelto] 1 dose PO AD 30 Days pack 12/28/17 Cyanocobalamin (B-12) [Vitamin B12] 1 tab PO DAILY #30 tablet 02/27/18 Allergies Allergy/AdvReac Type Severity Reaction Status Date / Time lisinopril AdvReac Cough Verified 01/17/18 09:28 All systems ED: reviewed and negative except as stated. Constitutional: Reports: weakness. Denies: fever, chills Eyes: Denies: eye pain, eye discharge, vision change Cardiovascular: Denies: chest pain, palpitations, dyspnea on exertion, edema, syncope Respiratory: Denies: cough, dyspnea, wheezes, hemoptysis, stridor Gastrointestinal: Denies: abdominal pain, nausea, vomiting, diarrhea, constipation, hematemesis, melena, hematochezia Musculoskeletal: Denies: back pain, neck pain, arthralgia, myalgia Integumentary: Reports: other (Erythema around the left knee and also the left distal lower leg) Neurological: Reports: weakness, other (Fall, unknown cause) Psychiatric: Denies: anxiety, depression, suicidal thoughts, homicidal thoughts , auditory hallucinations, visual hallucinations Hematological/Lymphatic: Denies: easy bleeding, easy bruising Allergic/Immunologic: Denies: facial swelling, urticaria Past Medical History - Past Medical History Medical history: Reports: atrial fibrillation, CHF, COPD, GERD, hyperlipidemia, hypertension, other Surgical history: Reports: knee replacement, other Psychiatric history: Reports: depression 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 Absent : rash - Respiratory Respiratory exam: Present: normal lung sounds bilaterally. Absent: respiratory distress, wheezes, stridor, accessory muscle use - Cardiovascular Cardiovascular exam: Present: irregular rhythm, normal heart sounds - Abdominal Exam Abdominal exam: Present: soft, Non-Tender. Absent: guarding - Extremities Exam Extremities exam: Present: other (There is mild erythema across the anterior left knee, especially the distal half of the knee extending onto the proximal left tibia, and there is erythema nearly circumferential at the distal 50% of the left calf. There is nonpitting pedal edema bilaterally) - Neurological Exam Neurological exam: Present: alert, CN II-XII intact (She initially misstates the month and the year) - Psychiatric Psychiatric exam: Present: normal affect - Skin Skin exam: Present: warm, dry, erythema (There is erythema as noted above on the left lower leg and anterior left knee) Course Course Narrative: This is a 67-year-old female with a fall of cause, also with erythema across the left anterior medial left lower leg. Vital Signs Temperature 98.4 F 03/20/18 08:28 Pulse Rate 128 03/20/18 08:28 Respiratory Rate 20 03/20/18 08:28 Blood Pressure 105/75 03/20/18 08:28 O2 Sat by Pulse Oximetry 95 03/20/18 08:28 Temperature 98.4 F 03/20/18 08:28 Pulse Rate 106 03/20/18 09:21 Respiratory Rate 18 03/20/18 09:21 Blood Pressure 98/66 03/20/18 09:21 O2 Sat by Pulse Oximetry 93 03/20/18 09:21 Oxygen Delivery Oxygen Delivery Room Air Medical Decision Making - MDM Narrative Medical decision making narrative: This is a 67-year-old female with what appears to be cellulitis of the left lower leg. As noted below, she has a significant leukocytosis. In addition, when she arrived, she was in A. fib with RVR. It is unclear what his dose of her diltiazem, but her rate responded briskly to bolus of IV diltiazem. In addition, she has hyponatremia. Ampicillin/sulbactam was ordered for antimicrobial treatment. I discussed her case with the hospitalist, who accepted her for admission - Lab Data Lab results narrative: CBC shows leukocytosis 24.4 with anemia at 11 and 34.8 BMP showed hyponatremia at 120 INR was therapeutic at 2.6 UA showed large number of white cells, microscopic hematuria, and significant leukocyte esterase but no bacteria Result diagrams: 03/20/18 08:43 03/20/18 08:43 Lab Results 03/20/18 03/20/18 03/20/18 Range/Units 08:43 08:43 08:43 WBC 24.4 H (4.3-11.1) K/mcL RBC 4.75 (3.82-4.97) M/mcL Hgb 11.0 L (11.5-15.4) g/dL Hct 34.8 L (35.3-44.9) % MCV 73.3 L (83.0-100.0) fL MCH 23.2 L (28.0-33.3) pg MCHC 31.6 (31.6-35.5) g/dL RDW 17.9 H (11.5-14.5) % Plt Count 313 (140-400) K/mcL MPV 8.6 L (9.4-12.4) fL Seg Neutrophils % 88.0 % Lymphocytes % 6.0 % Monocytes % 6.0 % Neutrophils # 21.5 H (1.6-8.9) K/mcL Lymphocytes # 1.5 (0.6-4.6) K/mcL Monocytes # 1.5 H (0.0-1.3) K/mcL Platelet Estimate Normal (Normal) Anisocytosis 1+ A (Not Present) PT 29.7 H (9.4-12.1) Seconds INR 2.6 Sodium 128 L (136-145) mEq/L Potassium 3.7 (3.5-5.1) mEq/L Chloride 94 L (98-107) mEq/L Carbon Dioxide 23 (23-29) mEq/L BUN 22 (8-23) mg/dL Creatinine 1.12 (0.60-1.20) mg/dL Est GFR ( Amer) 59 L (> 60) Est GFR (Non-Af Amer) 49 L (> 60) BUN/Creatinine Ratio 20 (6-26) Glucose 136 H (70-105) mg/dL Calculated Osmolality 271 L (280-300) Calcium 9.4 (8.6-10.3) mg/dL Total Bilirubin 0.5 (0.3-1.0) mg/dL Direct Bilirubin 0.1 (0.0-0.2) mg/dL Indirect Bilirubin 0.4 (0.0-1.2) mg/dL AST 15 (13-39) Units/L ALT 10 (7-52) Units/L Alkaline Phosphatase 95 (34-104) Units/L Creatine Kinase 224 H (30-223) Units/L Troponin I < 0.03 (< 0.04) ng/mL Serum Total Protein 7.3 (6.4-8.9) g/dL Albumin 3.6 (3.5-5.7) g/dL Globulin 3.7 H (2.4-3.5) g/dL Albumin/Globulin Ratio 1.0 L (1.1-2.2) Urine Color (Yellow) Urine Clarity (Clear) Urine pH (5.0-8.0) pH Units Ur Specific [place] (1.010-1.025) Urine Protein (Neg-Trace) mg/dL Urine Glucose (UA) (Normal) mg/dL Urine Ketones (Negative) mg/dL Urine Blood (Negative) Urine Nitrite (Negative) Urine Bilirubin (Negative) Urine Urobilinogen (Normal) mg/dL Ur Leukocyte Esterase (Negative) Urine Microscopic RBC (0-3) per hpf Urine Microscopic WBC (0-3) per hpf Ur Squamous Epith Cells (None-Few) per lpf Urine Bacteria (None-Few) per hpf Hyaline Casts (None-Few) per lpf Granular Casts (None Seen) per lpf Ur Culture Indicated? (NO) 03/20/18 Range/Units 08:48 WBC (4.3-11.1) K/mcL RBC (3.82-4.97) M/mcL Hgb (11.5-15.4) g/dL Hct (35.3-44.9) % MCV (83.0-100.0) fL MCH (28.0-33.3) pg MCHC (31.6-35.5) g/dL RDW (11.5-14.5) % Plt Count (140-400) K/mcL MPV (9.4-12.4) fL Seg Neutrophils % % Lymphocytes % % Monocytes % % Neutrophils # (1.6-8.9) K/mcL Lymphocytes # (0.6-4.6) K/mcL Monocytes # (0.0-1.3) K/mcL Platelet Estimate (Normal) Anisocytosis (Not Present) PT (9.4-12.1) Seconds INR Sodium (136-145) mEq/L Potassium (3.5-5.1) mEq/L Chloride (98-107) mEq/L Carbon Dioxide (23-29) mEq/L BUN (8-23) mg/dL Creatinine (0.60-1.20) mg/dL Est GFR ( Amer) (> 60) Est GFR (Non-Af Amer) (> 60) BUN/Creatinine Ratio (6-26) Glucose (70-105) mg/dL Calculated Osmolality (280-300) Calcium (8.6-10.3) mg/dL Total Bilirubin (0.3-1.0) mg/dL Direct Bilirubin (0.0-0.2) mg/dL Indirect Bilirubin (0.0-1.2) mg/dL AST (13-39) Units/L ALT (7-52) Units/L Alkaline Phosphatase (34-104) Units/L Creatine Kinase (30-223) Units/L Troponin I (< 0.04) ng/mL Serum Total Protein (6.4-8.9) g/dL Albumin (3.5-5.7) g/dL Globulin (2.4-3.5) g/dL Albumin/Globulin Ratio (1.1-2.2) Urine Color Yellow (Yellow) Urine Clarity Slightly Hazy (Clear) Urine pH 5.5 (5.0-8.0) pH Units Ur Specific [place] 1.018 (1.010-1.025) Urine Protein 30 H (Neg-Trace) mg/dL Urine Glucose (UA) Normal (Normal) mg/dL Urine Ketones Negative (Negative) mg/dL Urine Blood Moderate H (Negative) Urine Nitrite Negative (Negative) Urine Bilirubin Small H (Negative) Urine Urobilinogen Normal (Normal) mg/dL Ur Leukocyte Esterase Moderate H (Negative) Urine Microscopic RBC 3-5 H (0-3) per hpf Urine Microscopic WBC 50-100 H (0-3) per hpf Ur Squamous Epith Cells Moderate H (None-Few) per lpf Urine Bacteria None Seen (None-Few) per hpf Hyaline Casts Few (None-Few) per lpf Granular Casts Few H (None Seen) per lpf Ur Culture Indicated? YES A (NO) - Radiology Data Radiology results reviewed: Yes I reviewed the patient's radiology results. Left knee x-ray showed no evidence of soft tissue infection - EKG Data EKG #1 EKG results narrative: Atrial fibrillation, 125 bpm, normal T waves, diffuse ST depression Critical Care Time Total Critical Care Time: 20
[2018-03-20 08:51] LABS: Hematocrit 34.8 % (35.3-44.9); Mean Corpuscular HGB Conc 31.6 g/dL (31.6-35.5); Mean Corpuscular Hemoglobin 23.2 pg (28.0-33.3); Mean Corpuscular Volume 73.3 fL (83.0-100.0); Mean Platelet Volume 8.6 fL (9.4-12.4); Platelet Count 313 K/mcL (140-400); Red Blood Count 4.75 M/mcL (3.82-4.97); Red Cell Distribution Width 17.9 % (11.5-14.5)
[2018-03-20 08:58] LABS: INR 2.6; Prothrombin Time 29.7 Seconds (9.4-12.1)
[2018-03-20 09:05] LABS: Bilirubin,Urine Small (Negative); Blood,Urine Moderate (Negative); Color,Urine Yellow (Yellow); Glucose,Urine (UA) Normal (Normal); Ketones,Urine Negative (Negative); Leukocyte Esterase,Urine Moderate (Negative); Nitrite,Urine Negative (Negative); PH,Urine 5.5 pH Units (5.0-8.0); Protein,Urine 30 mg/dL (Neg-Trace); Specific Gravity,Urine 1.018 (1.010-1.025); Urobilinogen,Urine Normal (Normal)
[2018-03-20 09:07] LABS: Bacteria,Urine None Seen per hpf (None-Few); Squamous Epithelial Cell,Urine Moderate per lpf (None-Few); WBC,Urine 50-100 per hpf (0-3)
[2018-03-20 09:13] LABS: Alanine Aminotransferase 10 Units/L (7-52); Albumin 3.6 g/dL (3.5-5.7); Alkaline Phosphatase 95 Units/L (34-104); Aspartate Amino Transferase 15 Units/L (13-39); BUN/Creatinine Ratio 20 (6-26); Bilirubin,Direct 0.1 mg/dL (0.0-0.2); Bilirubin,Indirect 0.4 mg/dL (0.0-1.2); Bilirubin,Total 0.5 mg/dL (0.3-1.0); Blood Urea Nitrogen 22 mg/dL (8-23); Calcium 9.4 mg/dL (8.6-10.3); Carbon Dioxide 23 mEq/L (23-29); Chloride 94 mEq/L (98-107); Creatine Kinase 224 Units/L (30-223); Globulin 3.7 g/dL (2.4-3.5); Glucose 136 mg/dL (70-105); Osmolality,Calculated 271 (280-300); Potassium 3.7 mEq/L (3.5-5.1); Sodium 128 mEq/L (136-145); Total Protein 7.3 g/dL (6.4-8.9); Troponin I < 0.03 ng/mL (< 0.04); eGFR For Non-African Americans 49 (> 60)
[2018-03-20 09:14] LABS: Lymphocytes # 1.5 K/mcL (0.6-4.6); Monocytes # 1.5 K/mcL (0.0-1.3); Neutrophils # 21.5 K/mcL (1.6-8.9); Platelet Estimate Normal (Normal)
[2018-03-20 09:15] LABS: Anisocytosis 1+ (Not Present)
[2018-03-20 09:16] LABS: Clarity,Urine Slightly Hazy (Clear)
[2018-03-20 09:25] LABS: Granular Casts,Urine Few per lpf (None Seen); Hyaline Casts,Urine Few per lpf (None-Few)
[2018-03-20] MEDS ORDERED: Ampicillin/Sulbactam 3,000 MG in 0.9 % Sodium Chloride Mini Bag 100 ML IVPB ONE (09:28)
--- NOTE | 2018-03-20 13:09 | Internal Med History&Physical ---
Date of Encounter: 03/20/18 Time of Encounter: 10:00 Internal Medicine - H&P: HPI Chief complaint: Lower extremity erythema Admitted From: Home History of present illness: Patient is a 77-year-old female with past medical history significant for atrial fibrillation, mood disorder, and iron deficiency anemia who presents the ER on 03/20/18 due to left leg redness. Patient reports a 2 day history of left lower extremity redness with pain. Patient reports a history of MRSA and also a history of septic left knee joint. Patient reports that she was unable to bear weight on left knee and fell after getting up from the commode. Family found her on the floor and brought her into the ER for further evaluation. In the ER, patient was found to have leukocytosis with a white blood cell count 24.4 in addition to atrial fibrillation with RVR. Patients heart rate was controlled after a bolus of Cardizem. Patient will be admitted to medical surgical floor for left lower cellulitis with concerns for septic left knee joint. Past Med Surg Social Fam HX - Past Medical History Medical history: atrial fibrillation, CHF, COPD, GERD, hyperlipidemia, hypertension, other Additional medical history: sleep apnea Psychiatric history: depression - Past Surgical History Surgical History: knee replacement, other Additional surgical history: L knee replacement - Social History Smoking Status: Current every day smoker Smokeless Tobacco Status: No Alcohol use: none Drug use: none - Family History Mother Adopted: No Family Member Ethnicity: Non- Living Status: Hx Family Cardiac Disorders: Yes (TIAs, CVA, HTN) Hx Family Respiratory Disorders: Yes Hx Family Cancer: Yes Hx Family GI Disorders: No Hx Family Endocrine Disorder: Yes Hx Family Neuromuscular Disorders: No Hx Family Neurologic Disorders: No Hx Family HEENT Disorders: No Hx Family Autoimmune Disorders: No Father Family Member Ethnicity: Non- Living Status: Hx Family Cardiac Disorders: Yes Hx Family Respiratory Disorders: Yes Hx Family Cancer: Yes (Stomach) Hx Family GI Disorders: No Hx Family Endocrine Disorder: No Hx Family Neuromuscular Disorders: Yes Hx Family Neurologic Disorders: Yes Hx Family HEENT Disorders: No Hx Family Autoimmune Disorders: No Brother Adopted: No Family Member Ethnicity: Non- Living Status: Still Living Hx Family Cardiac Disorders: Yes Hx Family Respiratory Disorders: No Hx Family Cancer: No Hx Family GI Disorders: No Hx Family Endocrine Disorder: Yes Hx Family Neuromuscular Disorders: No Hx Family Neurologic Disorders: Yes Hx Family HEENT Disorders: No Hx Family Autoimmune Disorders: No Sister Adopted: No Family Member Ethnicity: Non- Living Status: Still Living Hx Family Cardiac Disorders: Yes (HTN) Hx Family Respiratory Disorders: Yes (COPD, ASTHMA) Hx Family Cancer: No Hx Family GI Disorders: No Hx Family Endocrine Disorder: No Hx Family Neuromuscular Disorders: No Hx Family Neurologic Disorders: No Hx Family HEENT Disorders: No Hx Family Autoimmune Disorders: No Internal Medicine - H&P: Meds Albuterol Sulfate [Ventolin Hfa] 2 puff IH Q6H PRN 03/13/16 [History] Aspirin Enteric Coated [Aspirin EC] 81 mg PO DAILY 03/13/16 [History] BuPROPion [Wellbutrin] 100 mg PO BID 03/13/16 [History] Calcium Carbonate/Vitamin D3 [[place] Calcium-Vit D Tab] 500 mg PO BID [History] Citalopram [CeleXA] 60 mg PO DAILY 03/13/16 [History] Digoxin [Lanoxin] 0.25 mg PO DAILY 03/13/16 [History] Ferrous Sulfate 325 mg PO BIDWM 03/13/16 [History] Umeclidinium [place] [Incruse Ellipta] 62.5 mcg IH DAILY 08/01/16 [History] Mv,Ca,Min/Iron Fum/FA/Lyco/Lut [Sentry Multivit & Mineral Cplt] 1 tab PO DAILY 10/12/16 [History] Omeprazole [PriLOSEC] 40 mg PO DAILY 10/12/16 [History] Oxygen 2 l NS AD PRN 10/12/16 [History] Diltiazem HCl [Diltiazem ER] 240 mg PO DAILY 05/03/17 [History] Furosemide [Lasix] 80 mg PO BID 05/03/17 [History] Budesonide/Formoterol 160/4.5 [Symbicort 160/4.5] 2 puff IH BIDR 06/19/17 [ History] Acetaminophen [Tylenol] 650 mg PO Q6HR PRN #30 tablet 08/12/17 [Rx] Polyethylene Glycol 3350 [MiraLAX] 17 gm PO DAILY PRN powd.pack 08/12/17 [Rx] Simethicone [Gas-X] 80 mg PO TID tab.chew 08/12/17 [Rx] Docusate [Colace] 100 mg PO BID PRN 08/29/17 [History] Doxycycline Hyclate [Vibramycin] 100 mg PO DAILY 12/26/17 [History] Cholecalciferol (D-3) [Vitamin D] 1,000 unit PO DAILY tablet 12/28/17 [Rx] Cyanocobalamin (B-12) [Vitamin B12] 1 tab PO DAILY #30 tablet 02/27/18 [Rx] Gabapentin [Neurontin] 300 mg PO HS 02/27/18 [History] Rivaroxaban [Xarelto] 20 mg PO DAILY 03/20/18 [History] 3 Allergy/AdvReac Type Severity Reaction Status Date / Time lisinopril AdvReac Cough Verified 01/17/18 09:28 All Systems PM: A 10-system review of systems was performed and is negative for pertinent findings except as documented above in the HPI. - Constitutional Vitals: Temp Pulse Resp BP Pulse Ox 98.4 F 79 22 108/71 95 03/20/18 11:50 03/20/18 11:50 03/20/18 11:50 03/20/18 11:50 03/20/18 11:50 General appearance: Present: A&O X 3, no acute distress - Eye Eye exam: Present: normal appearance - ENT ENT exam: Present: mucous membranes moist - Respiratory Respiratory exam: Present: CTAB. Absent: accessory muscle use, rales, rhonchi, wheezes - Cardiovascular Cardiovascular exam: Present: RRR, +S1, +S2. Absent: diastolic murmur, gallop, rubs, systolic murmur - GI/Abdominal GI/Abdominal exam: Present: normal bowel sounds, soft, no peritoneal signs. Absent: distended, tenderness - Extremities Exam Extremities exam: Absent: pedal edema - Psychiatric Psychiatric exam: Present: normal mood - Skin Skin exam: Present: erythema (Patient with left lower extremity cellulitis which extends up and including the left knee) Internal Med - H&P Results - Labs CBC & Chem 7: 03/20/18 08:43 03/20/18 08:43 - Assessment and plan (1) Cellulitis of left lower extremity Current Visit: No Status: Acute Assessment and plan: Patient with left lower extremity erythema which is warm to touch and includes left knee Patient also with leukocytosis with a white blood count of 24.4 Due to patient's history of MRSA, we will start patient on vancomycin Orthopedics has also been consulted and appreciate any recommendations (2) Atrial fibrillation with rapid ventricular response Current Visit: Yes Status: Acute Assessment and plan: Patient with uncontrolled rate on admission but rate is now controlled after given a Cardizem bolus in the ER Continue home medications of digoxin and diltiazem (3) Hyponatremia Current Visit: Yes Status: Acute Assessment and plan: Patient with a sodium of 128 on admission Placed on fluid restriction and monitor (4) CELSO (iron deficiency anemia) Current Visit: No Status: Acute Assessment and plan: Continue iron supplements Qualifiers: Iron deficiency anemia type: unspecified iron deficiency Qualified Code(s) : D50.9 - Iron deficiency anemia, unspecified (5) COPD (chronic obstructive pulmonary disease) Current Visit: No Status: Chronic Assessment and plan: Continue home dose of Ellipta and Symbicort Qualifiers: COPD type: unspecified COPD Qualified Code(s): J44.9 - Chronic obstructive pulmonary disease, unspecified (6) HTN (hypertension) Current Visit: No Status: Chronic Qualifiers: Hypertension type: essential hypertension Qualified Code(s): I10 - Essential (primary) hypertension (7) DVT prophylaxis Current Visit: No Status: Acute Assessment and plan: Patient is on Xarelto - Time Spent With Patient Total time spent is greater than 50% in coordination of care (as documented) at patient's floor/unit and/or counseling patient:
[2018-03-20] MEDS ORDERED: Naloxone 0.4 MG/ML INJ IVP PRN (13:40)
[2018-03-20] MEDS ORDERED: NON-FORMULARY MEDICATION 1 EACH EACH (Oxygen [Oxygen] 2 L) NS PRN (13:51)
[2018-03-20] MEDS: Simethicone 80 MG TAB.CHEW PO SCH ×2 (16:00→20:27)
[2018-03-20] MEDS: Acetaminophen 325 MG TABLET PO PRN (16:01)
[2018-03-20] MEDS: Furosemide 40 MG TABLET PO SCH (16:06)
--- NOTE | 2018-03-20 16:32 | Electrocardiograph Report ---
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
--- NOTE | 2018-03-20 17:51 | Orthopedic Consult Note ---
Date of Encounter: 03/20/18 Time of Encounter: 13:10 Assessment and Plan (1) Cellulitis of left lower extremity Current Visit: Yes Status: Acute Would recommend wound care/center involvement in treatment as patient has a history of difficulty with wound healing. 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 Castanon. Patient was seen recently by Dr. Castanon in office. Continue with conservative plan regarding knee prosthesis loosening including continued aid use which has in the past included use of motorized scooter. Encourage PT/OT participation re: continued ADL retraining. Qualifiers: Encounter type: subsequent encounter Qualified Code(s): T84.038D - Mechanical loosening of other internal prosthetic joint, subsequent encounter; Z96.659 - Presence of unspecified artificial knee joint History of Present Illness Chief complaint: left knee pain/cellulitis HPI: Ms. Lewis is a 67 year old female well known to [facility]. She presents to [facility] per patient secondary to abrupt onset cellulitis. She states she thinks the medication from her "pain doctor" may have caused the rash to her leg which she states developed into cellulitis. She states she has been applying topical medication to her left leg and developed a rash "about 3 days ago" and suddenly felt unwell starting yesterday per patient. She states she continues to have limited motion to her left knee however denies any new complaints regarding the left knee at this time. She has a history of I&D Lt knee 09/01/17 and Left tkr revision 10/12/16 with the original knee replacement occurring per patient in 1995. She also had a recent DVT in the LLE this past spring. She had a fall onto the left knee this spring and has had ongoing issues with motion since that time. There is noted loosening however patient has a history of chronic wound healing issues with the left leg and patient has been managed conservatively nonoperatively by Dr. Castanon and [facility] team. Patient denies any pain to the left knee however admits to tenderness to left thigh as well as cherry and foot. She denies any nausea/vomiting, noting any draining wounds, or rash located anywhere else other than left knee. Past Med Surg Social Fam HX - Past Medical History Medical history: atrial fibrillation, CHF, COPD, GERD, hyperlipidemia, hypertension, other Additional medical history: sleep apnea Psychiatric history: depression - Past Surgical History Surgical History: knee replacement, other Additional surgical history: L knee replacement - Social History Smoking Status: Current every day smoker Smokeless Tobacco Status: No Alcohol use: none Drug use: none - Family History Mother Adopted: No Family Member Ethnicity: Non- Living Status: Hx Family Cardiac Disorders: Yes (TIAs, CVA, HTN) Hx Family Respiratory Disorders: Yes Hx Family Cancer: Yes Hx Family GI Disorders: No Hx Family Endocrine Disorder: Yes Hx Family Neuromuscular Disorders: No Hx Family Neurologic Disorders: No Hx Family HEENT Disorders: No Hx Family Autoimmune Disorders: No Father Family Member Ethnicity: Non- Living Status: Hx Family Cardiac Disorders: Yes Hx Family Respiratory Disorders: Yes Hx Family Cancer: Yes (Stomach) Hx Family GI Disorders: No Hx Family Endocrine Disorder: No Hx Family Neuromuscular Disorders: Yes Hx Family Neurologic Disorders: Yes Hx Family HEENT Disorders: No Hx Family Autoimmune Disorders: No Brother Adopted: No Family Member Ethnicity: Non- Living Status: Still Living Hx Family Cardiac Disorders: Yes Hx Family Respiratory Disorders: No Hx Family Cancer: No Hx Family GI Disorders: No Hx Family Endocrine Disorder: Yes Hx Family Neuromuscular Disorders: No Hx Family Neurologic Disorders: Yes Hx Family HEENT Disorders: No Hx Family Autoimmune Disorders: No Sister Adopted: No Family Member Ethnicity: Non- Living Status: Still Living Hx Family Cardiac Disorders: Yes (HTN) Hx Family Respiratory Disorders: Yes (COPD, ASTHMA) Hx Family Cancer: No Hx Family GI Disorders: No Hx Family Endocrine Disorder: No Hx Family Neuromuscular Disorders: No Hx Family Neurologic Disorders: No Hx Family HEENT Disorders: No Hx Family Autoimmune Disorders: No Medications and Allergies Albuterol Sulfate [Ventolin Hfa] 2 puff IH Q6H PRN 03/13/16 [History] Aspirin Enteric Coated [Aspirin EC] 81 mg PO DAILY 03/13/16 [History] BuPROPion [Wellbutrin] 100 mg PO BID 03/13/16 [History] Calcium Carbonate/Vitamin D3 [Oyster Shell Calcium-Vit D Tab] 500 mg PO BID [History] Citalopram [CeleXA] 60 mg PO DAILY 03/13/16 [History] Digoxin [Lanoxin] 0.25 mg PO DAILY 03/13/16 [History] Ferrous Sulfate 325 mg PO BIDWM 03/13/16 [History] Umeclidinium [place] [Incruse Ellipta] 62.5 mcg IH DAILY 08/01/16 [History] Mv,Ca,Min/Iron Fum/FA/Lyco/Lut [Sentry Multivit & Mineral Cplt] 1 tab PO DAILY 10/12/16 [History] Omeprazole [PriLOSEC] 40 mg PO DAILY 10/12/16 [History] Oxygen 2 l NS AD PRN 10/12/16 [History] Diltiazem HCl [Diltiazem ER] 240 mg PO DAILY 05/03/17 [History] Furosemide [Lasix] 80 mg PO BID 05/03/17 [History] Budesonide/Formoterol 160/4.5 [Symbicort 160/4.5] 2 puff IH BIDR 06/19/17 [ History] Acetaminophen [Tylenol] 650 mg PO Q6HR PRN #30 tablet 08/12/17 [Rx] Polyethylene Glycol 3350 [MiraLAX] 17 gm PO DAILY PRN powd.pack 08/12/17 [Rx] Simethicone [Gas-X] 80 mg PO TID tab.chew 08/12/17 [Rx] Docusate [Colace] 100 mg PO BID PRN 08/29/17 [History] Doxycycline Hyclate [Vibramycin] 100 mg PO DAILY 12/26/17 [History] Cholecalciferol (D-3) [Vitamin D] 1,000 unit PO DAILY tablet 12/28/17 [Rx] Cyanocobalamin (B-12) [Vitamin B12] 1 tab PO DAILY #30 tablet 02/27/18 [Rx] Gabapentin [Neurontin] 300 mg PO HS 02/27/18 [History] Rivaroxaban [Xarelto] 20 mg PO DAILY 03/20/18 [History] 3 Allergy/AdvReac Type Severity Reaction Status Date / Time lisinopril AdvReac Cough Verified 01/17/18 09:28 Review of systems: as per HPI Physical Exam - Constitutional Vitals: Temp Pulse Resp BP Pulse Ox 99.5 F 87 18 98/68 94 03/20/18 16:42 03/20/18 16:42 03/20/18 16:42 03/20/18 16:42 03/20/18 16:42 Vital Signs - 24 hr 03/20/18 08:28 03/20/18 09:21 03/20/18 10:18 Temperature 98.4 F Pulse Rate 128 106 92 Respiratory Rate 20 18 20 Blood Pressure 105/75 98/66 88/59 O2 Sat by Pulse Oximetry 95 93 100 03/20/18 11:50 03/20/18 13:05 03/20/18 16:42 Temperature 98.4 F 99.5 F Pulse Rate 79 87 Respiratory Rate 22 18 Blood Pressure 108/71 98/68 O2 Sat by Pulse Oximetry 95 94 94 Exam: On exam she is resting comfortably in bed eating lunch. She is alert and oriented x 3. Inspection left lower extremity reveals ongoing left knee deformity with apparent contracture to appx 45 degrees. Patient noted to have hip externally rotated - patient states for comfort secondary to inability to voluntarily extend left knee. No calf tenderness noted to palpation. Well healed left knee incision scar noted with no areas of fluctuance, erythema, or induration. Significant erythema to circumferential left distal cherry, ankle, and foot with erosive ulcer noted to anterior distal cherry appx 2cm lateral diameter and 1cm vertical diameter with slough noted to wound bed. No drainage noted on exam. This area is exquisitely tender to palpation. ROM intact to b/l ankles/toes. Results - Labs Result Diagrams: 03/20/18 08:43 03/20/18 08:43 Labs: Abnormal lab results WBC 24.4 K/mcL (4.3-11.1) H 03/20/18 08:43 Hgb 11.0 g/dL (11.5-15.4) L 03/20/18 08:43 Hct 34.8 % (35.3-44.9) L 03/20/18 08:43 MCV 73.3 fL (83.0-100.0) L 03/20/18 08:43 MCH 23.2 pg (28.0-33.3) L 03/20/18 08:43 RDW 17.9 % (11.5-14.5) H 03/20/18 08:43 MPV 8.6 fL (9.4-12.4) L 03/20/18 08:43 Neutrophils # 21.5 K/mcL (1.6-8.9) H 03/20/18 08:43 Monocytes # 1.5 K/mcL (0.0-1.3) H 03/20/18 08:43 Anisocytosis 1+ (Not Present) A 03/20/18 08:43 PT 29.7 Seconds (9.4-12.1) H 03/20/18 08:43 Sodium 128 mEq/L (136-145) L 03/20/18 08:43 Chloride 94 mEq/L (98-107) L 03/20/18 08:43 Est GFR ( Amer) 59 (> 60) L 03/20/18 08:43 Est GFR (Non-Af Amer) 49 (> 60) L 03/20/18 08:43 Glucose 136 mg/dL (70-105) H 03/20/18 08:43 Calculated Osmolality 271 (280-300) L 03/20/18 08:43 Creatine Kinase 224 Units/L (30-223) H 03/20/18 08:43 Globulin 3.7 g/dL (2.4-3.5) H 03/20/18 08:43 Albumin/Globulin Ratio 1.0 (1.1-2.2) L 03/20/18 08:43 Urine Protein 30 mg/dL (Neg-Trace) H 03/20/18 08:48 Urine Blood Moderate (Negative) H 03/20/18 08:48 Urine Bilirubin Small (Negative) H 03/20/18 08:48 Ur Leukocyte Esterase Moderate (Negative) H 03/20/18 08:48 Urine Microscopic RBC 3-5 per hpf (0-3) H 03/20/18 08:48 Urine Microscopic WBC 50-100 per hpf (0-3) H 03/20/18 08:48 Ur Squamous Epith Cells Moderate per lpf (None-Few) H 03/20/18 08:48 Granular Casts Few per lpf (None Seen) H 03/20/18 08:48 Ur Culture Indicated? YES (NO) A 03/20/18 08:48 All other labs normal. - Diagnostic results Knee x-ray: report reviewed (agree with report - relatively unchanged from last exam.), image reviewed Consult Discharge Plan - Plan Referrals: Edouard Cole MD [Primary Care Provider] -
[2018-03-20] MEDS: Budesonide/Formoterol 160/4.5 MDI IH SCH (19:33)
[2018-03-20] MEDS: Gabapentin 300 MG CAPSULE PO SCH (20:27)
[2018-03-21 05:40] LABS: Hematocrit 31.8 % (35.3-44.9); Hemoglobin 9.7 g/dL (11.5-15.4); Mean Corpuscular HGB Conc 30.5 g/dL (31.6-35.5); Mean Corpuscular Hemoglobin 22.4 pg (28.0-33.3); Mean Corpuscular Volume 73.3 fL (83.0-100.0); Mean Platelet Volume 9.7 fL (9.4-12.4); Platelet Count 318 K/mcL (140-400); Red Blood Count 4.34 M/mcL (3.82-4.97); Red Cell Distribution Width 17.9 % (11.5-14.5)
[2018-03-21 06:02] LABS: BUN/Creatinine Ratio 24 (6-26); Blood Urea Nitrogen 24 mg/dL (8-23); Carbon Dioxide 26 mEq/L (23-29); Chloride 100 mEq/L (98-107); Glucose 145 mg/dL (70-105); Osmolality,Calculated 285 (280-300); Potassium 3.2 mEq/L (3.5-5.1); Sodium 134 mEq/L (136-145); eGFR For Non-African Americans 55 (> 60)
[2018-03-21] MEDS: Tiotropium 18 MCG inhalation IH SCH (07:45)
[2018-03-21] MEDS: Budesonide/Formoterol 160/4.5 MDI IH SCH ×2 (07:46→19:49)
[2018-03-21] MEDS: Diltiazem CD (24hr) 240 MG CAPSULE PO SCH (09:48)
[2018-03-21] MEDS: Simethicone 80 MG TAB.CHEW PO SCH ×3 (09:48→21:48)
[2018-03-21] MEDS: Aspirin Enteric Coated 81 MG Tablet PO SCH (09:48)
[2018-03-21] MEDS: *HR* Digoxin 0.25 MG TABLET PO SCH (09:48)
[2018-03-21] MEDS: Cyanocobalamin (B-12) 1,000 MCG TABLET PO SCH (09:48)
[2018-03-21] MEDS: Furosemide 40 MG TABLET PO SCH ×2 (09:48→18:12)
[2018-03-21] MEDS: *HR* Rivaroxaban 10 MG TABLET PO SCH (09:48)
[2018-03-21] MEDS: Cholecalciferol (D-3) 1,000 UNIT TABLET PO SCH (09:48)
[2018-03-21] MEDS: Acetaminophen 325 MG TABLET PO PRN (09:54)
--- NOTE | 2018-03-21 14:31 | Internal Med Progress Note ---
Hospitalist Progress Note - Encounter Date of Encounter: 03/21/18 Time of Encounter: 14:31 - Subjective Interval History: 67 F with PMH of COPD, CHF, GERD, HLD, HTN, KELLY, Depression, Iron deficiency anemia She is admitted and being managed for LLE cellulitis with no abscess She has a hx of MRSA septic arthirits but currently has low suspicion for MRSA She also is not complaining of knee symptoms as her L knee prosthesis is known to be loose and is being managed conservatively by orthopedics She also has chronic venous stasis changes Wound care is following She is afebrile She denies new complains, and thinks her Left thigh redness is due to the cream she has been applying locally for pain - Exam Vitals: Temp Pulse Resp BP Pulse Ox 97.9 F 96 17 135/81 94 03/21/18 11:00 03/21/18 11:00 03/21/18 11:00 03/21/18 11:00 03/21/18 11:00 Exam: VSS Gen: not in any form of distress, morbidly obese, speaks full sentences Neuro: No focal deficits, moves all limbs spontaneously HEENT: Moist oral mucosa, anicteric, not pale, no cyanosis Chest: CTAB Heart: S1, S2 only, no m/g/r, no JVD Abdomen: Soft, not tender, no palpably enlarged organs Extremities: Left thigh with localized region of rendess and swelling, with sharp edges and demarcation, not tender, no visible abscesses. Left leg with chronic venous stasis changes and poorly heaing wounds, weeping, no active discharge. Pedal edema + Skin: No rash - Assessment and Plan (1) COPD (chronic obstructive pulmonary disease) Current Visit: Yes Status: Chronic Assessment and Plan: Continue home dose of Ellipta and Symbicort Not in exacerbation at this time (2) Atrial fibrillation with rapid ventricular response Current Visit: Yes Status: Resolved Assessment and Plan: HR now controlled Continue home doses of digoxin and diltiazem (3) Hyponatremia Current Visit: Yes Status: Acute Assessment and Plan: Na is 134 this a.m, was 128 on admission, continue to monitor Not on IVF (4) DVT prophylaxis Current Visit: Yes Status: Acute Assessment and Plan: Patient is on Xarelto, INR is 2.6 (5) HTN (hypertension) Current Visit: Yes Status: Chronic Assessment and Plan: controlled, continue home meds (6) Cellulitis of left lower extremity Current Visit: Yes Status: Acute Assessment and Plan: Patient with left lower extremity erythema which is warm to touch and includes left knee Patient also with leukocytosis with a white blood count on admission of 24.4 Ortho eval noted No joint effusion at this time, an no plans for intervention Leukocytosis is improved to 15.6 Continue Vanco , add Unasyn for wider coverage Follow blood culture and de-escalate prn Patient is not septic at this time (7) CELSO (iron deficiency anemia) Current Visit: Yes Status: Chronic Assessment and Plan: Continue iron supplements (8) Hypokalemia Current Visit: Yes Status: Acute Assessment and Plan: K 3.2 Replaced by po Continue to monitor - Time Spent with Patient Total time spent is greater than 50% in coordination of care (as documented) at patient's floor/unit and/or counseling patient: Plan of Care Discussed with: patient Internal Medicine: Result - Labs CBC & Chem 7: 03/21/18 04:50 03/21/18 04:50 Labs: Short CBC 03/21/18 Range/Units 04:50 WBC 15.6 H (4.3-11.1) K/mcL Hgb 9.7 L (11.5-15.4) g/dL Hct 31.8 L (35.3-44.9) % Plt Count 318 (140-400) K/mcL BMP 03/21/18 04:50 Sodium 134 L Potassium 3.2 L Chloride 100 Carbon Dioxide 26 BUN 24 H Creatinine 1.01 Glucose 145 H Calcium 9.0 - ABG Interpretation ABG results: PT/INR, D-dimer PT 29.7 Seconds (9.4-12.1) H 03/20/18 08:43 Consult Discharge Plan - Plan Referrals: Edouard Cole MD [Primary Care Provider] - (1) COPD (chronic obstructive pulmonary disease) Qualifiers: COPD type: unspecified COPD Qualified Code(s): J44.9 - Chronic obstructive pulmonary disease, unspecified (5) HTN (hypertension) Qualifiers: Hypertension type: essential hypertension Qualified Code(s): I10 - Essential (primary) hypertension (7) CELSO (iron deficiency anemia) Qualifiers: Iron deficiency anemia type: unspecified iron deficiency Qualified Code(s): D50.9 - Iron deficiency anemia, unspecified
[2018-03-21] MEDS: Ampicillin/Sulbactam 3,000 MG in 0.9 % Sodium Chloride Mini Bag 100 ML IVPB SCH (18:12)
[2018-03-21] MEDS: Leptospermum Honey Gel 44 ML TUBE TP SCH ×2 (18:14→21:49)
[2018-03-21] MEDS: Gabapentin 300 MG CAPSULE PO SCH (21:48)
[2018-03-22] MEDS: Ampicillin/Sulbactam 3,000 MG in 0.9 % Sodium Chloride Mini Bag 100 ML IVPB SCH ×5 (01:27→23:00)
[2018-03-22] MEDS: Acetaminophen 325 MG TABLET PO PRN ×3 (02:35→14:17)
[2018-03-22 06:02] LABS: Basophils % 0.3 %; Eosinophils # 0.8 K/mcL (0.0-0.6); Eosinophils % 6.4 %; Hematocrit 31.8 % (35.3-44.9); Hemoglobin 9.6 g/dL (11.5-15.4); Immature Granulocytes % 0.7 % (0-4); Lymphocytes # 1.4 K/mcL (0.6-4.6); Lymphocytes % 11.5 %; Mean Corpuscular HGB Conc 30.2 g/dL (31.6-35.5); Mean Corpuscular Hemoglobin 22.2 pg (28.0-33.3); Mean Corpuscular Volume 73.6 fL (83.0-100.0); Mean Platelet Volume 9.5 fL (9.4-12.4); Monocytes # 0.9 K/mcL (0.0-1.3); Monocytes % 7.3 %; Neutrophils # 8.8 K/mcL (1.6-8.9); Platelet Count 339 K/mcL (140-400); Red Blood Count 4.32 M/mcL (3.82-4.97); Segmented Neutrophils % 73.8 %
[2018-03-22 06:23] LABS: BUN/Creatinine Ratio 22 (6-26); Blood Urea Nitrogen 19 mg/dL (8-23); Calcium 8.8 mg/dL (8.6-10.3); Carbon Dioxide 26 mEq/L (23-29); Chloride 101 mEq/L (98-107); Glucose 101 mg/dL (70-105); Osmolality,Calculated 282 (280-300); Potassium 3.4 mEq/L (3.5-5.1); Sodium 135 mEq/L (136-145); eGFR For Non-African Americans > 60 (> 60)
[2018-03-22] MEDS: Budesonide/Formoterol 160/4.5 MDI IH SCH ×2 (07:42→20:16)
[2018-03-22] MEDS: Tiotropium 18 MCG inhalation IH SCH (07:42)
[2018-03-22] MEDS: *HR* Rivaroxaban 10 MG TABLET PO SCH (07:46)
[2018-03-22] MEDS: Diltiazem CD (24hr) 240 MG CAPSULE PO SCH (07:46)
[2018-03-22] MEDS: Furosemide 40 MG TABLET PO SCH ×2 (07:46→17:25)
[2018-03-22] MEDS: Simethicone 80 MG TAB.CHEW PO SCH ×3 (07:47→22:59)
[2018-03-22] MEDS: Aspirin Enteric Coated 81 MG Tablet PO SCH (07:47)
[2018-03-22] MEDS: *HR* Digoxin 0.25 MG TABLET PO SCH (07:47)
[2018-03-22] MEDS: Cholecalciferol (D-3) 1,000 UNIT TABLET PO SCH (07:47)
[2018-03-22] MEDS: Cyanocobalamin (B-12) 1,000 MCG TABLET PO SCH (07:47)
[2018-03-22] MEDS ORDERED: Aminoglycoside Consult 1 EACH MC ONE (12:58)
[2018-03-22] MEDS: Leptospermum Honey Gel 44 ML TUBE TP SCH (14:17)
[2018-03-22] MEDS: Gabapentin 300 MG CAPSULE PO SCH (22:59)
[2018-03-23] MEDS: Acetaminophen 325 MG TABLET PO PRN (03:21)
[2018-03-23] MEDS: Ampicillin/Sulbactam 3,000 MG in 0.9 % Sodium Chloride Mini Bag 100 ML IVPB SCH ×2 (05:55→07:30)
[2018-03-23 06:04] LABS: Basophils % 0.2 %; Eosinophils # 0.9 K/mcL (0.0-0.6); Eosinophils % 7.8 %; Hematocrit 31.2 % (35.3-44.9); Hemoglobin 9.4 g/dL (11.5-15.4); Immature Granulocytes % 1.5 % (0-4); Lymphocytes # 1.5 K/mcL (0.6-4.6); Lymphocytes % 12.4 %; Mean Corpuscular HGB Conc 30.1 g/dL (31.6-35.5); Mean Corpuscular Hemoglobin 22.4 pg (28.0-33.3); Mean Corpuscular Volume 74.5 fL (83.0-100.0); Mean Platelet Volume 9.8 fL (9.4-12.4); Monocytes % 8.2 %; Neutrophils # 8.4 K/mcL (1.6-8.9); Platelet Count 382 K/mcL (140-400); Red Blood Count 4.19 M/mcL (3.82-4.97); Red Cell Distribution Width 18.2 % (11.5-14.5); Segmented Neutrophils % 69.9 %
[2018-03-23] MEDS: Leptospermum Honey Gel 44 ML TUBE TP SCH ×2 (06:15→08:47)
[2018-03-23 06:17] LABS: BUN/Creatinine Ratio 23 (6-26); Blood Urea Nitrogen 17 mg/dL (8-23); Calcium 8.9 mg/dL (8.6-10.3); Carbon Dioxide 26 mEq/L (23-29); Chloride 105 mEq/L (98-107); Glucose 116 mg/dL (70-105); Osmolality,Calculated 289 (280-300); Potassium 3.8 mEq/L (3.5-5.1); Sodium 138 mEq/L (136-145); eGFR For Non-African Americans > 60 (> 60)
[2018-03-23] MEDS: Aspirin Enteric Coated 81 MG Tablet PO SCH (08:46)
[2018-03-23] MEDS: Diltiazem CD (24hr) 240 MG CAPSULE PO SCH (08:46)
[2018-03-23] MEDS: Cholecalciferol (D-3) 1,000 UNIT TABLET PO SCH (08:46)
[2018-03-23] MEDS: Simethicone 80 MG TAB.CHEW PO SCH (08:46)
[2018-03-23] MEDS: Cyanocobalamin (B-12) 1,000 MCG TABLET PO SCH (08:46)
[2018-03-23] MEDS: *HR* Digoxin 0.25 MG TABLET PO SCH (08:46)
[2018-03-23] MEDS: Furosemide 40 MG TABLET PO SCH (08:46)
[2018-03-23] MEDS: *HR* Rivaroxaban 10 MG TABLET PO SCH (08:46)
[2018-03-23] MEDS: Tiotropium 18 MCG inhalation IH SCH (10:22)
[2018-03-23] MEDS: Budesonide/Formoterol 160/4.5 MDI IH SCH (10:22)
[2018-03-23 10:53] VITALS: BP 109/74
[2018-03-23] MEDS ORDERED: Doxycycline 100 MG in 0.9 % Sodium Chloride Mini Bag 100 ML IVPB SCH (11:00)
--- NOTE | 2018-03-23 12:10 | Physician Discharge Referral ---
Home Health/Hosp Referral Info Transfer to: Home Health Attending Provider: Alexandre Forde Provider in Charge Post Discharge: PCP - Diagnosis (1) COPD (chronic obstructive pulmonary disease) Priority: Secondary Status: Chronic (2) Atrial fibrillation with rapid ventricular response Priority: Secondary Status: Resolved (3) Hyponatremia Priority: Primary Status: Acute (4) DVT prophylaxis Status: Resolved (5) HTN (hypertension) Priority: Secondary Status: Chronic (6) Cellulitis of left lower extremity Priority: Primary Status: Acute (7) CELSO (iron deficiency anemia) Priority: Secondary Status: Chronic (8) Hypokalemia Priority: Primary Status: Resolved - Respiratory Orders Smoking Cessation: Smoking cessation has been advised. For more information, call the [employer] [facility] Quit Line at 4-181-FVOA-NOW. - Dressing/Wound Care Site: LLE Wound Care: superficial ulcers to the anterior and posterior surface of the left lower leg - cleanse with CHG soap and water - rinse well with water and pat dry - apply Medihoney gel to the wounds - cover with Allevyn Foam dressings - repeat procedure twice daily - Diet/Nutrition Diet/Nutrition Orders: Cardiac - Activity Activity Orders: Up ad barrett - Services Needed Following services are medically necessary services: Nursing, Home Health Aide, Physical Therapy, Occupational Therapy - Transfer Medications Prescriptions: Amoxicillin/Clavulanate [Augmentin] 875 mg PO BIDWM #10 tablet Doxycycline 100 mg PO BID #12 capsule Home Medications: Albuterol Sulfate [Ventolin Hfa] 2 puff IH Q6H PRN 03/13/16 [History] Aspirin Enteric Coated [Aspirin EC] 81 mg PO DAILY 03/13/16 [History] BuPROPion [Wellbutrin] 100 mg PO BID 03/13/16 [History] Calcium Carbonate/Vitamin D3 [Oyster Shell Calcium-Vit D Tab] 500 mg PO BID [History] Citalopram [CeleXA] 60 mg PO DAILY 03/13/16 [History] Digoxin [Lanoxin] 0.25 mg PO DAILY 03/13/16 [History] Ferrous Sulfate 325 mg PO BIDWM 03/13/16 [History] Umeclidinium [place] [Incruse Ellipta] 62.5 mcg IH DAILY 08/01/16 [History] Mv,Ca,Min/Iron Fum/FA/Lyco/Lut [Sentry Multivit & Mineral Cplt] 1 tab PO DAILY 10/12/16 [History] Omeprazole [PriLOSEC] 40 mg PO DAILY 10/12/16 [History] Oxygen 2 l NS AD PRN 10/12/16 [History] Diltiazem HCl [Diltiazem ER] 240 mg PO DAILY 05/03/17 [History] Furosemide [Lasix] 80 mg PO BID 05/03/17 [History] Budesonide/Formoterol 160/4.5 [Symbicort 160/4.5] 2 puff IH BIDR 06/19/17 [ History] Acetaminophen [Tylenol] 650 mg PO Q6HR PRN #30 tablet 08/12/17 [Rx] Polyethylene Glycol 3350 [MiraLAX] 17 gm PO DAILY PRN powd.pack 08/12/17 [Rx] Simethicone [Gas-X] 80 mg PO TID tab.chew 08/12/17 [Rx] Docusate [Colace] 100 mg PO BID PRN 08/29/17 [History] Doxycycline Hyclate [Vibramycin] 100 mg PO DAILY 12/26/17 [History] Cholecalciferol (D-3) [Vitamin D] 1,000 unit PO DAILY tablet 12/28/17 [Rx] Cyanocobalamin (B-12) [Vitamin B12] 1 tab PO DAILY #30 tablet 02/27/18 [Rx] Gabapentin [Neurontin] 300 mg PO HS 02/27/18 [History] Rivaroxaban [Xarelto] 20 mg PO DAILY 03/20/18 [History] Amoxicillin/Clavulanate [Augmentin] 875 mg PO BIDWM #10 tablet 03/23/18 [Rx] Doxycycline 100 mg PO BID #12 capsule 03/23/18 [Rx] Allergies/Adverse Reactions: 3 Allergy/AdvReac Type Severity Reaction Status Date / Time lisinopril AdvReac Cough Verified 01/17/18 09:28 Certification: Further, I certify that my clinical findings support that this patient is homebound (i.e. absences from home require considerable and taxing effort and are for medical reasons or faith services or infrequently or short duration when for other reasons) because: Homebound Reason: Patient requires assistance of a person or device to safely leave home Attestation: My signature below is to certify that this patient is under my care and that I, or nurse practitioner, or a physician's ssn/ssbn assistant navigator working with me, has a face-to -face encounter with this patient.
--- NOTE | 2018-03-23 12:12 | Discharge Summary ---
- NOTES TO OUTPATIENT PROVIDER Notes to Outpatient Provider: Patient admitted for management of cellulitis, she also had E.coli UTI. She is discharged on doxycycline and augmentin. She needs to follow up with wound care for her poorly healing Left lower extremity wound. Wound care recommended and patient has RN, welfare service aide and family that can help in her wound dressing. Follow up with PCP and Ortho. No evidence of septic arthritis in this admission Orders not resulted at time of discharge: Pending orders 03/24/18 04:00 Chem 7 [Basic Metabolic Panel] AM 0400 Complete Blood Count [HEME] AM 0400 Date of Encounter: 03/23/18 Time of Encounter: 12:10 - Discharge Diagnosis (1) COPD (chronic obstructive pulmonary disease) Priority: Secondary Status: Chronic Qualifiers: COPD type: unspecified COPD Qualified Code(s): J44.9 - Chronic obstructive pulmonary disease, unspecified (2) Atrial fibrillation with rapid ventricular response Priority: Secondary Status: Resolved (3) Hyponatremia Priority: Primary Status: Resolved (4) DVT prophylaxis Priority: Primary Status: Resolved (5) HTN (hypertension) Priority: Secondary Status: Chronic Qualifiers: Hypertension type: essential hypertension Qualified Code(s): I10 - Essential (primary) hypertension (6) Cellulitis of left lower extremity Priority: Primary Status: Acute (7) CELSO (iron deficiency anemia) Priority: Secondary Status: Chronic Qualifiers: Iron deficiency anemia type: unspecified iron deficiency Qualified Code(s) : D50.9 - Iron deficiency anemia, unspecified (8) Hypokalemia Priority: Primary Status: Resolved Hospital course: Ms. Lewis is a 67 year old female with PMH of MOrbid Obesity, HTN, COPD, GERD, KELLY, hx of septic arthritis Patient admitted for management of cellulitis, she also had E.coli UTI She had multiple electrolyte abnormalities that have been corrected including hyponatremia and hypokalemia Leukocytosis present on admission continued to trend down There was no abscess collection nor sepsis in her diagnosis She is discharged on doxycycline and augmentin She needs to follow up with wound care for her poorly healing Left lower extremity wound Wound care recommended and patient has RN, welfare service aide and family that can help in her wound dressing Follow up with PCP and Ortho No evidence of septic arthritis in this admission Patient is discharged home in stable clinical state Discharge discussed with: patient, nurse, social work - Time Spent with Patient Total time spent providing and/or coordinating discharge services: Greater than 30 minutes (40 min spent on face to face, med rec, prescription and documentation) - Discharge Medications Prescriptions: Amoxicillin/Clavulanate [Augmentin] 875 mg PO BIDWM #10 tablet Doxycycline 100 mg PO BID #12 capsule Home Medications: Albuterol Sulfate [Ventolin Hfa] 2 puff IH Q6H PRN 03/13/16 [History] Aspirin Enteric Coated [Aspirin EC] 81 mg PO DAILY 03/13/16 [History] BuPROPion [Wellbutrin] 100 mg PO BID 03/13/16 [History] Calcium Carbonate/Vitamin D3 [Oyster Shell Calcium-Vit D Tab] 500 mg PO BID [History] Citalopram [CeleXA] 60 mg PO DAILY 03/13/16 [History] Digoxin [Lanoxin] 0.25 mg PO DAILY 03/13/16 [History] Ferrous Sulfate 325 mg PO BIDWM 03/13/16 [History] Umeclidinium [place] [Incruse Ellipta] 62.5 mcg IH DAILY 08/01/16 [History] Mv,Ca,Min/Iron Fum/FA/Lyco/Lut [Sentry Multivit & Mineral Cplt] 1 tab PO DAILY 10/12/16 [History] Omeprazole [PriLOSEC] 40 mg PO DAILY 10/12/16 [History] Oxygen 2 l NS AD PRN 10/12/16 [History] Diltiazem HCl [Diltiazem ER] 240 mg PO DAILY 05/03/17 [History] Furosemide [Lasix] 80 mg PO BID 05/03/17 [History] Budesonide/Formoterol 160/4.5 [Symbicort 160/4.5] 2 puff IH BIDR 06/19/17 [ History] Acetaminophen [Tylenol] 650 mg PO Q6HR PRN #30 tablet 08/12/17 [Rx] Polyethylene Glycol 3350 [MiraLAX] 17 gm PO DAILY PRN powd.pack 08/12/17 [Rx] Simethicone [Gas-X] 80 mg PO TID tab.chew 08/12/17 [Rx] Docusate [Colace] 100 mg PO BID PRN 08/29/17 [History] Doxycycline Hyclate [Vibramycin] 100 mg PO DAILY 12/26/17 [History] Cholecalciferol (D-3) [Vitamin D] 1,000 unit PO DAILY tablet 12/28/17 [Rx] Cyanocobalamin (B-12) [Vitamin B12] 1 tab PO DAILY #30 tablet 02/27/18 [Rx] Gabapentin [Neurontin] 300 mg PO HS 02/27/18 [History] Rivaroxaban [Xarelto] 20 mg PO DAILY 03/20/18 [History] Amoxicillin/Clavulanate [Augmentin] 875 mg PO BIDWM #10 tablet 03/23/18 [Rx] Doxycycline 100 mg PO BID #12 capsule 03/23/18 [Rx] Allergies/Adverse Reactions: 3 Allergy/AdvReac Type Severity Reaction Status Date / Time lisinopril AdvReac Cough Verified 01/17/18 09:28 Date of admission: 03/20/18 10:10 Primary care physician: Edouard Cole MD Consults: 03/20/18 13:45 Consult to Physical Therapy [CONS] Routine Comment: Evaluate, develop and implement POC Reason for Consult: Inability to walk Does patient have active BEDREST order?: No Is patient medically & hemodynamically stable?: Yes Patient assessed for mobility or mobilized this visit?: No 03/20/18 13:47 Consult to Wound Care [CONS] Routine Reason for Consult: Ulcerative lesion left lower extremity Call Completed: No 03/20/18 13:48 Consult to Orthopedic Surgery [CONS] Routine Consulting Provider: [facility] Reason for Consult: Concern for septic left knee Call Completed: Yes Discharging clinician: Pelon Forde Anticipated date of discharge: 03/23/18 - Constitutional Vitals: Temp Pulse Resp BP Pulse Ox 98.3 F 89 16 109/74 97 03/23/18 10:52 03/23/18 10:52 03/23/18 10:52 03/23/18 10:52 03/23/18 10:52 VSS Gen: not in any form of distress, morbidly obese, speaks full sentences Neuro: No focal deficits, moves all limbs spontaneously HEENT: Moist oral mucosa, anicteric, not pale, no cyanosis Chest: CTAB Heart: S1, S2 only, no m/g/r, no JVD Abdomen: Soft, not tender, no palpably enlarged organs Extremities: Left thigh with localized region of rendess and swelling, with sharp edges and demarcation, not tender, no visible abscesses. Left leg with chronic venous stasis changes and poorly heaing wounds, covered with allevyn. Pedal edema + Skin: No rash General appearance: Present: A&O X 3, no acute distress - Patient Status Disposition: Home Health Service Condition: Good Functional capacity at discharge: uses cane/walker Overall status at discharge: patient is progressing back to baseline - Discharge Instructions Instructions: Doxycycline (By mouth), Amoxicillin/Clavulanate Potassium (By mouth), Chronic Obstructive Pulmonary Disease (DC) Follow Up With: Isai Castanon MD [Partnered Physician] - 04/04/18 5:00 pm (Please follow up as schedule...) Shelton Marin MD [Non-Partnered Physician] - 03/27/18 9:30 am (Please follow up as schedule...) Edouard Cole MD [Primary Care Provider] - 03/28/18 1:15 pm (Please follow up as schedule...) Additional Instructions: Complete antibiotics at home Wound care by group home supervisor/RN Follow up with your PCP, Orthopedics and Wound care center - Diet and Activity Activity: resume usual activities as tolerated Diet: diabetic diet, low salt diet
== END 2018-03-23 14:14 | disposition home health service (06) | DRG 603 ==
LOC: 2ANU 08:26 → EMEROO 08:26 → OBSVTOIN 10:10 → SUATTDRO 10:10 → 2ANU 11:00
PROVIDERS: ADMIT Hospitalist; ATTEND Internal Medicine

== ENCOUNTER 2018-04-02 20:09 | Inpatient (IN) ==
[2018-04-02 21:29] LABS: Basophils % 0.4 %; Eosinophils # 0.7 K/mcL (0.0-0.6); Eosinophils % 6.7 %; Hematocrit 35.5 % (35.3-44.9); Hemoglobin 10.4 g/dL (11.5-15.4); Immature Granulocytes % 0.5 % (0-4); Lymphocytes # 2.1 K/mcL (0.6-4.6); Lymphocytes % 21.3 %; Mean Corpuscular HGB Conc 29.3 g/dL (31.6-35.5); Mean Corpuscular Hemoglobin 22.6 pg (28.0-33.3); Mean Platelet Volume 8.8 fL (9.4-12.4); Monocytes # 0.7 K/mcL (0.0-1.3); Neutrophils # 6.3 K/mcL (1.6-8.9); Platelet Count 479 K/mcL (140-400); Red Blood Count 4.61 M/mcL (3.82-4.97); Red Cell Distribution Width 18.4 % (11.5-14.5); Segmented Neutrophils % 64.1 %
[2018-04-02] MEDS ORDERED: methylPREDNISolone 125 MG/2 ML VIAL IVP ONE (21:33)
[2018-04-02] MEDS ORDERED: Ipratropium/Albuterol Neb 3 ML IH ONE (21:40)
[2018-04-02 21:51] LABS: BUN/Creatinine Ratio 14 (6-26); Blood Urea Nitrogen 10 mg/dL (8-23); Calcium 9.1 mg/dL (8.6-10.3); Carbon Dioxide 28 mEq/L (23-29); Chloride 103 mEq/L (98-107); Glucose 99 mg/dL (70-105); Osmolality,Calculated 283 (280-300); Potassium 3.6 mEq/L (3.5-5.1); Sodium 137 mEq/L (136-145); Troponin I < 0.03 ng/mL (< 0.04); eGFR For Non-African Americans > 60 (> 60)
[2018-04-02 22:00] LABS: Digoxin 0.9 ng/mL (0.8-2.0)
--- NOTE | 2018-04-02 22:06 | Emergency Department Note ---
Disposition Clinical Impression: COPD exacerbation Disposition: Admitted As Inpatient Condition: Good Referrals: Edouard Cole MD [Primary Care Provider] - Forms: ED Satisfaction Letter Time of Disposition: 23:14 SOB HPI - General Chief Complaint: ED Shortness of Breath/Dyspnea Stated Complaint: sob Time Seen by Provider: 04/02/18 20:58 Source: patient, family Limitations: no limitations Nursing Notes Reviewed: Yes Vital Signs Reviewed: Yes - History of Present Illness This is a 67 year-old female with history of COPD on 2L home O2, CHF, AF, chronic cellulitis of the left lower extremity, DVT on Xarelto, who presents with dyspnea, chronic, worse for the past 3 days. Associated with wheezing and increased cough productive of white sputum. She denies any associated fever, chest or other acute pain complaints, abdominal pain, nausea, or vomiting. She tried albuterol and Lasix at home with limited relief. She was diagnosed with DVT about a month ago, switched from other anticoagulant to Xarelto. She sees the wound center for chronic cellulitis of the leg. Pt Subjective Complaint: shortness of breath Onset (ago): day(s) (3) Severity: moderate Consistency/Duration: gradually worsening Improves with: nothing Worsens with: exertion Known history of: COPD, congestive heart failure, DVT Associated symptoms: Reports: cough, wheezing, sputum production. Denies: chest pain, fever, hemoptysis Treatment prior to arrival: bronchodilator, diuretics Cough present: Yes Cough Description: Productive Cough Frequency: Intermittent Sputum Amount: Moderate Sputum Color: White - Related Data Home oxygen amount: 2 liters Home Medications Medication Instructions Recorded Confirmed Albuterol Sulfate [Ventolin Hfa] 2 puff IH Q6H PRN 03/13/16 03/20/18 Aspirin Enteric Coated [Aspirin EC] 81 mg PO DAILY 03/13/16 03/20/18 BuPROPion [Wellbutrin] 100 mg PO BID 03/13/16 03/20/18 Calcium Carbonate/Vitamin D3 500 mg PO BID 03/13/16 03/20/18 [Oyster Shell Calcium-Vit D Tab] Citalopram [CeleXA] 60 mg PO DAILY 03/13/16 03/20/18 Digoxin [Lanoxin] 0.25 mg PO DAILY 03/13/16 03/20/18 Ferrous Sulfate 325 mg PO BIDWM 03/13/16 03/20/18 Umeclidinium [place] [Incruse 62.5 mcg IH DAILY 08/01/16 03/20/18 Ellipta] Mv,Ca,Min/Iron Fum/FA/Lyco/Lut 1 tab PO DAILY 10/12/16 03/20/18 [Sentry Multivit & Mineral Cplt] Omeprazole [PriLOSEC] 40 mg PO DAILY 10/12/16 03/20/18 Oxygen 2 l NS AD PRN 10/12/16 03/20/18 Diltiazem HCl [Diltiazem ER] 240 mg PO DAILY 05/03/17 03/20/18 Furosemide [Lasix] 80 mg PO BID 05/03/17 03/20/18 Budesonide/Formoterol 160/4.5 2 puff IH BIDR 06/19/17 03/20/18 [Symbicort 160/4.5] Doxycycline Hyclate [Vibramycin] 100 mg PO DAILY 12/26/17 03/20/18 Gabapentin [Neurontin] 300 mg PO HS 02/27/18 03/20/18 Rivaroxaban [Xarelto] 20 mg PO DAILY 03/20/18 03/20/18 Previous Rx's Medication Instructions Recorded Acetaminophen [Tylenol] 650 mg PO Q6HR PRN #30 tablet 08/12/17 Polyethylene Glycol 3350 [MiraLAX] 17 gm PO DAILY PRN powd.pack 08/12/17 Cholecalciferol (D-3) [Vitamin D] 1,000 unit PO DAILY tablet 12/28/17 Cyanocobalamin (B-12) [Vitamin B12] 1 tab PO DAILY #30 tablet 02/27/18 Amoxicillin/Clavulanate [Augmentin] 875 mg PO BIDWM #10 tablet 03/23/18 Allergies Allergy/AdvReac Type Severity Reaction Status Date / Time lisinopril AdvReac Cough Verified 01/17/18 09:28 All systems ED: reviewed and negative except as stated. Constitutional: Denies: fever Cardiovascular: Reports: as per HPI. Denies: chest pain Respiratory: Reports: cough, dyspnea, wheezes. 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 - Social History Smoking Status: Current every day smoker Smokeless Tobacco Status: No Alcohol use: Reports: none Drug use: Reports: none Physical Exam - General Limitations: no limitations General appearance: alert - Head Head exam: atraumatic, normocephalic - Eye Eye exam: Present: normal appearance - ENT ENT exam: normal exam, normal oropharynx - Neck Neck exam: Present: normal inspection - Respiratory Respiratory exam: Present: respiratory distress (mild), wheezes - Cardiovascular Cardiovascular exam: Present: regular rate, normal rhythm, normal heart sounds - Abdominal Exam Abdominal exam: Present: soft, Non-Tender. Absent: distention - Extremities Exam Extremities exam: Present: pedal edema, other (legs wrapped) - Neurological Exam Neurological exam: Present: alert, oriented X3. Absent: motor sensory deficit - Psychiatric Psychiatric exam: Present: normal affect, normal mood Course - Reevaluation(s) Reevaluation #1: Patient reports that she's breathing a little better after the breathing treatment. Discussed test results and plans. Patient in agreement with admission. Time: 23:13 - Consultations Consultation #1: Reviewed case with Dr Saavedra, and patient accepted for admission. Time: 00:00 Vital Signs Temperature 98.0 F 04/02/18 20:13 Pulse Rate 72 04/02/18 20:13 Respiratory Rate 22 04/02/18 20:13 Blood Pressure 143/82 04/02/18 20:13 O2 Sat by Pulse Oximetry 95 04/02/18 20:13 Temperature 98.0 F 04/02/18 20:13 Pulse Rate 84 04/02/18 23:37 Respiratory Rate 22 04/02/18 23:37 Blood Pressure 149/78 04/02/18 23:37 O2 Sat by Pulse Oximetry 94 04/02/18 23:37 Oxygen Delivery Oxygen Delivery Nasal Cannula Shortness of Breath/Dyspnea - Lab Data Lab results reviewed: Yes I reviewed the patient's lab results. Lab results narrative: Anemia chronic. BNP elevation mild. Troponin negative. Result diagrams: 04/02/18 21:20 04/02/18 21:20 Lab Results 04/02/18 04/02/18 04/02/18 Range/Units 21:20 21:20 21:20 WBC 9.8 (4.3-11.1) K/mcL RBC 4.61 (3.82-4.97) M/mcL Hgb 10.4 L (11.5-15.4) g/dL Hct 35.5 (35.3-44.9) % MCV 77.0 L (83.0-100.0) fL MCH 22.6 L (28.0-33.3) pg MCHC 29.3 L (31.6-35.5) g/dL RDW 18.4 H (11.5-14.5) % Plt Count 479 H (140-400) K/mcL MPV 8.8 L (9.4-12.4) fL Immature Gran % 0.5 (0-4) % Seg Neutrophils % 64.1 % Lymphocytes % 21.3 % Monocytes % 7.0 % Eosinophils % 6.7 % Basophils % 0.4 % Neutrophils # 6.3 (1.6-8.9) K/mcL Lymphocytes # 2.1 (0.6-4.6) K/mcL Monocytes # 0.7 (0.0-1.3) K/mcL Eosinophils # 0.7 H (0.0-0.6) K/mcL Basophils # 0.0 (0.0-0.2) K/mcL Sodium 137 (136-145) mEq/L Potassium 3.6 (3.5-5.1) mEq/L Chloride 103 (98-107) mEq/L Carbon Dioxide 28 (23-29) mEq/L BUN 10 (8-23) mg/dL Creatinine 0.69 (0.60-1.20) mg/dL Est GFR ( Amer) > 60 (> 60) Est GFR (Non-Af Amer) > 60 (> 60) BUN/Creatinine Ratio 14 (6-26) Glucose 99 (70-105) mg/dL Calculated Osmolality 283 (280-300) Calcium 9.1 (8.6-10.3) mg/dL Troponin I < 0.03 (< 0.04) ng/mL B-Natriuretic Peptide 147 H (Less than 100) pg/mL Digoxin 0.9 (0.8-2.0) ng/mL - Radiology Data Radiology results reviewed: Yes I reviewed the patient's radiology results. XR/XR chest 1V portable IMPRESSION: Enlarged cardiac silhouette and mild vascular congestion. - EKG Data EKG attestation: Yes I reviewed and interpreted this EKG. Rate: Reports: normal Rhythm: Reports: A.Fib [place]/QRS: Reports: normal T wave inversions noted in: Reports: II, III, aVF When compared to previous EKG there are: no significant changes Interpretation: Reports: no acute changes, nonspecific ST-T wave changes
[2018-04-02] MEDS ORDERED: cefTRIAXone 2,000 MG in Water for inj. (sterile) 20 ML 20 ML IVP ONE (23:07)
[2018-04-03] MEDS ORDERED: Naloxone 0.4 MG/ML INJ IVP PRN (02:52)
--- NOTE | 2018-04-03 03:11 | Internal Med History&Physical ---
Date of Encounter: 04/03/18 Time of Encounter: 02:15 Internal Medicine - H&P: HPI Chief complaint: Dyspnea Admitted From: Home Plans for Post Hospital Care: Home History of present illness: Ms. Lewis is a 67 year old female Patient has been experiencing 2 day history of shortness of breath. She started increasing oxygen at home, tried breathing treatments but they have not been helping her. After dealing with it at home without success in relieving her symptoms she decided to come to the hospital for further evaluation. She denies chest pain, abdominal pain, nausea, vomiting, dizziness, diarrhea and constipation. She notes that her sputum has not changed in color in his white and no increase in amount from her baseline. She has a chronic history of atrial fibrillation, and recent DVT. She had been on Coumadin prior to her DVT and then was switched to Xarelto after that. She has also been recently treated for cellulitis of the left leg which she has completed treatment for, but wound care still managing the wound on her left leg. In the emergency room troponins were negative, BNP was 147 which is below her previous values. CBC and BMP were within normal limits. Chest x-ray showed mild vascular congestion. EKG showed atrial fibrillation's with T-wave inversions in II, III, and avf but no acute changes. She is admitted for further management of her dyspnea, receiving breathing treatments in the emergency room and feeling better. Upon my assessment patient was resting comfortably in the hospital bed, no complaints at this time. She is breathing much better. Past Med Surg Social Fam HX - Past Medical History Medical history: atrial fibrillation, CHF, COPD, GERD, hyperlipidemia, hypertension, other Additional medical history: sleep apnea, DVT left leg,. Psychiatric history: depression - Past Surgical History Surgical History: knee replacement, other Additional surgical history: BL knee replacement - Social History Smoking Status: Current every day smoker Packs per day: 3/4 Smokeless Tobacco Status: No Alcohol use: none Drug use: none - Family History Mother Adopted: No Family Member Ethnicity: Non- Living Status: Hx Family Cardiac Disorders: Yes (TIAs, CVA, HTN) Hx Family Respiratory Disorders: Yes Hx Family Cancer: Yes Hx Family GI Disorders: No Hx Family Endocrine Disorder: Yes Hx Family Neuromuscular Disorders: No Hx Family Neurologic Disorders: No Hx Family HEENT Disorders: No Hx Family Autoimmune Disorders: No Father Family Member Ethnicity: Non- Living Status: Hx Family Cardiac Disorders: Yes Hx Family Respiratory Disorders: Yes Hx Family Cancer: Yes (Stomach) Hx Family GI Disorders: No Hx Family Endocrine Disorder: No Hx Family Neuromuscular Disorders: Yes Hx Family Neurologic Disorders: Yes Hx Family HEENT Disorders: No Hx Family Autoimmune Disorders: No Brother Adopted: No Family Member Ethnicity: Non- Living Status: Still Living Hx Family Cardiac Disorders: Yes Hx Family Respiratory Disorders: No Hx Family Cancer: No Hx Family GI Disorders: No Hx Family Endocrine Disorder: Yes Hx Family Neuromuscular Disorders: No Hx Family Neurologic Disorders: Yes Hx Family HEENT Disorders: No Hx Family Autoimmune Disorders: No Sister Adopted: No Family Member Ethnicity: Non- Living Status: Still Living Hx Family Cardiac Disorders: Yes (HTN) Hx Family Respiratory Disorders: Yes (COPD, ASTHMA) Hx Family Cancer: No Hx Family GI Disorders: No Hx Family Endocrine Disorder: No Hx Family Neuromuscular Disorders: No Hx Family Neurologic Disorders: No Hx Family HEENT Disorders: No Hx Family Autoimmune Disorders: No Internal Medicine - H&P: Meds Albuterol Sulfate [Ventolin Hfa] 2 puff IH Q6H PRN 03/13/16 [History] Aspirin Enteric Coated [Aspirin EC] 81 mg PO DAILY 03/13/16 [History] BuPROPion [Wellbutrin] 100 mg PO BID 03/13/16 [History] Calcium Carbonate/Vitamin D3 [Oyster Shell Calcium-Vit D Tab] 500 mg PO BID [History] Citalopram [CeleXA] 60 mg PO DAILY 03/13/16 [History] Digoxin [Lanoxin] 0.25 mg PO DAILY 03/13/16 [History] Ferrous Sulfate 325 mg PO BIDWM 03/13/16 [History] Umeclidinium [place] [Incruse Ellipta] 62.5 mcg IH DAILY 08/01/16 [History] Mv,Ca,Min/Iron Fum/FA/Lyco/Lut [Sentry Multivit & Mineral Cplt] 1 tab PO DAILY 10/12/16 [History] Omeprazole [PriLOSEC] 40 mg PO DAILY 10/12/16 [History] Oxygen 2 l NS AD PRN 10/12/16 [History] Diltiazem HCl [Diltiazem ER] 240 mg PO DAILY 05/03/17 [History] Furosemide [Lasix] 80 mg PO BID 05/03/17 [History] Budesonide/Formoterol 160/4.5 [Symbicort 160/4.5] 2 puff IH BIDR 06/19/17 [ History] Acetaminophen [Tylenol] 650 mg PO Q6HR PRN #30 tablet 08/12/17 [Rx] Polyethylene Glycol 3350 [MiraLAX] 17 gm PO DAILY PRN powd.pack 08/12/17 [Rx] Doxycycline Hyclate [Vibramycin] 100 mg PO DAILY 12/26/17 [History] Cholecalciferol (D-3) [Vitamin D] 1,000 unit PO DAILY tablet 12/28/17 [Rx] Cyanocobalamin (B-12) [Vitamin B12] 1 tab PO DAILY #30 tablet 02/27/18 [Rx] Gabapentin [Neurontin] 300 mg PO HS 02/27/18 [History] Rivaroxaban [Xarelto] 20 mg PO DAILY 03/20/18 [History] Amoxicillin/Clavulanate [Augmentin] 875 mg PO BIDWM #10 tablet 03/23/18 [Rx] 3 Allergy/AdvReac Type Severity Reaction Status Date / Time lisinopril AdvReac Cough Verified 01/17/18 09:28 All Systems PM: A 10-system review of systems was performed and is negative for pertinent findings except as documented above in the HPI. - Constitutional Vitals: Temp Pulse Resp BP Pulse Ox 98.2 F 93 15 169/93 92 04/03/18 01:04 04/03/18 01:04 04/03/18 01:04 04/03/18 01:04 04/03/18 01:06 General appearance: Present: cooperative, A&O X 3, pleasant, no acute distress, answers questions appropriately Exam: Patient is awake alert and oriented, no acute distress. - Head Head exam: Present: normal inspection - Eye Eye exam: Present: EOMI, normal appearance - Respiratory Respiratory exam: Present: rales, respiratory distress, wheezes. Absent: chest wall tenderness - Cardiovascular Cardiovascular exam: Present: irregular rhythm. Absent: diastolic murmur, systolic murmur - GI/Abdominal GI/Abdominal exam: Present: normal bowel sounds, soft. Absent: tenderness - Extremities Exam Extremities exam: Present: warm, radial pulses palpable and symmetrical. Absent : tenderness Additional comments: Left leg has dressing from wound care covering site of treated cellulitis - Neurological Exam Neurological exam: Present: no focal deficits, strengths equal and symetr throughout. Absent: motor sensory deficit, facial droop, speech deficit - Skin Skin exam: Present: dry, normal color, warm Internal Med - H&P Results - Labs CBC & Chem 7: 04/02/18 21:20 04/02/18 21:20 - Assessment and plan (1) Acute exacerbation of chronic obstructive airways disease Current Visit: No Status: Acute Assessment and plan: Patient has had increased shortness of breath for the last 2 days, despite using home nebulizers and oxygen. Currently she states she is feeling better after nebulizer treatment here. Emergency room started patient on ceftriaxone 2 g for suspected pneumonia though x-ray only showed mild vascular congestion, patient does not have elevated white count and vital signs are stable. Blood cultures were also drawn. We will continue to monitor though discontinue ceftriaxone at this time. Continue nebulizer treatment Oxygen as needed Prednisone 40 mg daily Azithromycin 500 mg IV daily (2) Chronic diastolic CHF (congestive heart failure) Current Visit: No Status: Acute Assessment and plan: Patient takes Lasix at home. Current BNP improved from previous measurements. We will continue Lasix 40 mg twice a day IV. (3) SOB (shortness of breath) Current Visit: No Status: Acute Assessment and plan: Likely secondary to above, currently improved from presentation. (4) Chronic atrial fibrillation Current Visit: No Status: Chronic Assessment and plan: Currently rate controlled, continue to monitor Continue patient's home meds (5) DVT (deep venous thrombosis) Current Visit: No Status: Acute Assessment and plan: Patient diagnosed with DVT on a previous admission back in December. Has been taking Xarelto for this, as well as for atrial fibrillation. Continue current management Qualifiers: DVT location: lower extremity Affected thrombotic vein of extremity: popliteal Chronicity: acute Laterality: left Qualified Code(s): I82.432 - Acute embolism and thrombosis of left popliteal vein (6) History of cellulitis Current Visit: Yes Status: Acute Assessment and plan: Patient recently treated for cellulitis of the left leg. Will have wound care continue with management here in the hospital (7) Tobacco abuse Current Visit: No Status: Acute Assessment and plan: Patient is a half-pack a day cigarette smoker. - Time Spent With Patient Total time spent is greater than 50% in coordination of care (as documented) at patient's floor/unit and/or counseling patient: Greater than 35 minutes
[2018-04-03] MEDS ORDERED: Acetaminophen 325 MG TABLET PO PRN (03:46)
[2018-04-03] MEDS: Azithromycin 500 MG in D5% in Water 250 ML IVPB SCH (03:49)
[2018-04-03] MEDS: Ipratropium/Albuterol Neb 3 ML IH SCH ×4 (04:02→22:33)
[2018-04-03 06:29] LABS: Hematocrit 32.4 % (35.3-44.9); Hemoglobin 9.7 g/dL (11.5-15.4); Mean Corpuscular HGB Conc 29.9 g/dL (31.6-35.5); Mean Corpuscular Hemoglobin 22.2 pg (28.0-33.3); Mean Corpuscular Volume 74.3 fL (83.0-100.0); Mean Platelet Volume 9.2 fL (9.4-12.4); Platelet Count 508 K/mcL (140-400); Red Blood Count 4.36 M/mcL (3.82-4.97); Red Cell Distribution Width 18.3 % (11.5-14.5)
[2018-04-03 06:48] LABS: BUN/Creatinine Ratio 13 (6-26); Blood Urea Nitrogen 11 mg/dL (8-23); Calcium 8.9 mg/dL (8.6-10.3); Carbon Dioxide 27 mEq/L (23-29); Chloride 102 mEq/L (98-107); Glucose 261 mg/dL (70-105); Osmolality,Calculated 290 (280-300); Potassium 4.1 mEq/L (3.5-5.1); Sodium 136 mEq/L (136-145); eGFR For Non-African Americans > 60 (> 60)
[2018-04-03] MEDS: Furosemide 40 MG/4 ML VIAL IVP SCH ×2 (08:35→16:07)
[2018-04-03] MEDS: *HR* Digoxin 0.25 MG TABLET PO SCH (08:36)
[2018-04-03] MEDS: *HR* Rivaroxaban 10 MG TABLET PO SCH (08:36)
[2018-04-03] MEDS: Diltiazem CD (24hr) 240 MG CAPSULE PO SCH (08:36)
[2018-04-03] MEDS: predniSONE 20 MG TABLET PO SCH (08:36)
[2018-04-03] MEDS: Aspirin Enteric Coated 81 MG Tablet PO SCH (08:36)
--- NOTE | 2018-04-03 15:28 | Event Note ---
Date of Encounter: 04/03/18 Time of Encounter: 11:00 Patient was seen earlier this am by hospitalist. Currently she does not appear to be in any resp distress. She does have a hx of of DVT in L leg as well as cellulititis She is on Xarelto and voices concern about mobility. We will have PT/OT evaluate the patient
--- NOTE | 2018-04-03 18:10 | Electrocardiograph Report ---
[place] [id number] Test Date: 2018-04-02 Pat Name: Capri Lewis Department: Room: 3B45 Gender: F Pediatric Speech Therapist: : 1950 Requested By: Michael Vidal Order Number: [id number] Reading MD: Paulino Russell Measurements Intervals [place] Rate: 72 P: [place]: QRS: 77 QRSD: 95 T: -83 QT: 395 QTc: 433 Interpretive Statements Atrial fibrillation Anterolateral and inferior ST-T changes, consider ischemia Electronically Signed On 04-03-2018 18:08:54 EDT by Paulino Russell
[2018-04-03] MEDS: Gabapentin 300 MG CAPSULE PO SCH (20:19)
[2018-04-04] MEDS: GuaiFENesin/Dextromethorphan TABLET PO PRN ×2 (03:21→16:50)
[2018-04-04] MEDS: Azithromycin 500 MG in D5% in Water 250 ML IVPB SCH (03:21)
[2018-04-04] MEDS: Ipratropium/Albuterol Neb 3 ML IH SCH ×5 (04:18→23:27)
[2018-04-04 06:11] LABS: Basophils % 0.2 %; Eosinophils % 0.2 %; Hematocrit 33.9 % (35.3-44.9); Hemoglobin 10.2 g/dL (11.5-15.4); Immature Granulocytes % 0.6 % (0-4); Lymphocytes # 2.1 K/mcL (0.6-4.6); Lymphocytes % 18.8 %; Mean Corpuscular HGB Conc 30.1 g/dL (31.6-35.5); Mean Corpuscular Hemoglobin 22.7 pg (28.0-33.3); Mean Corpuscular Volume 75.5 fL (83.0-100.0); Mean Platelet Volume 9.1 fL (9.4-12.4); Monocytes # 0.8 K/mcL (0.0-1.3); Monocytes % 6.6 %; Neutrophils # 8.3 K/mcL (1.6-8.9); Platelet Count 519 K/mcL (140-400); Red Blood Count 4.49 M/mcL (3.82-4.97); Red Cell Distribution Width 18.6 % (11.5-14.5); Segmented Neutrophils % 73.6 %
[2018-04-04 06:28] LABS: BUN/Creatinine Ratio 26 (6-26); Blood Urea Nitrogen 17 mg/dL (8-23); Calcium 9.1 mg/dL (8.6-10.3); Carbon Dioxide 30 mEq/L (23-29); Chloride 100 mEq/L (98-107); Glucose 155 mg/dL (70-105); Osmolality,Calculated 287 (280-300); Sodium 136 mEq/L (136-145); eGFR For Non-African Americans > 60 (> 60)
[2018-04-04] MEDS: Diltiazem CD (24hr) 240 MG CAPSULE PO SCH (08:24)
[2018-04-04] MEDS: predniSONE 20 MG TABLET PO SCH (08:24)
[2018-04-04] MEDS: *HR* Rivaroxaban 10 MG TABLET PO SCH (08:25)
[2018-04-04] MEDS: *HR* Digoxin 0.25 MG TABLET PO SCH (08:25)
[2018-04-04] MEDS: Aspirin Enteric Coated 81 MG Tablet PO SCH (08:25)
[2018-04-04] MEDS: Furosemide 40 MG/4 ML VIAL IVP SCH ×2 (08:27→16:24)
--- NOTE | 2018-04-04 09:44 | Internal Med Progress Note ---
Hospitalist Progress Note - Encounter Date of Encounter: 04/04/18 Time of Encounter: 16:32 - Subjective Interval History: Patient was seen and examined ay bedside earlier this AM.She was doing well We titrated her O2 down to home level 2 L NC. Reassessed patient and she now has audible wheezes through out. We will give Duonebs as well as solumedrol IV now - Exam Vitals: Temp Pulse Resp BP Pulse Ox 97.9 F 71 20 147/77 98 04/04/18 07:07 04/04/18 07:07 04/04/18 07:07 04/04/18 07:07 04/04/18 07:07 Exam: General appearance: Present: cooperative, A&O X 3, pleasant, no acute distress, answers questions appropriately Exam: Patient is awake alert and oriented, no acute distress. - Head Head exam: Present: normal inspection - Eye Eye exam: Present: EOMI, normal appearance - Respiratory Respiratory exam: Present: respiratory distress, wheezes. Absent: chest wall tenderness - Cardiovascular Cardiovascular exam: Present: irregular rhythm. Absent: diastolic murmur, systolic murmur - GI/Abdominal GI/Abdominal exam: Present: normal bowel sounds, soft. Absent: tenderness - Extremities Exam Extremities exam: Present: warm, radial pulses palpable and symmetrical. Absent : tenderness Additional comments: Left leg has dressing from wound care covering site of treated cellulitis - Neurological Exam Neurological exam: Present: no focal deficits, strengths equal and symetr throughout. Absent: motor sensory deficit, facial droop, speech deficit - Skin Skin exam: Present: dry, normal color, warm - Assessment and Plan (1) Acute exacerbation of chronic obstructive airways disease Current Visit: No Status: Acute Assessment and Plan: Has audible wheezes today - was on oral prednison will switch to solu medrol continue with Duo nebs cont with oxygen on 2l NC at home currently on 3 we will wean cont with Azithromycin 500 mg daily (2) History of cellulitis Current Visit: Yes Status: Acute Assessment and Plan: Recently treated for cellulitis Wound care consulted (3) Chronic diastolic CHF (congestive heart failure) Current Visit: No Status: Acute Assessment and Plan: will continue with home dose of lasix BNP better than previous monitor intake and output daily weights (4) DVT (deep venous thrombosis) Current Visit: No Status: Acute Assessment and Plan: Hx of DVT we will cont with Xarelto - diagnosed with DVT on previous admission in December Encourage to ambulate- PT consult (5) SOB (shortness of breath) Current Visit: No Status: Acute Assessment and Plan: secondary to COPD exacerbation (6) Tobacco abuse Current Visit: No Status: Acute Assessment and Plan: encourage patient to stop smoking (7) Chronic atrial fibrillation Current Visit: No Status: Chronic Assessment and Plan: Rate controlled cont with Xarelto cardizem (8) Difficulty walking Current Visit: No Status: Chronic Assessment and Plan: consult to PT, - Time Spent with Patient Total time spent is greater than 50% in coordination of care (as documented) at patient's floor/unit and/or counseling patient: Internal Medicine: Result - Labs CBC & Chem 7: 04/04/18 05:26 04/04/18 05:26 Labs: Short CBC 04/04/18 Range/Units 05:26 WBC 11.3 H (4.3-11.1) K/mcL Hgb 10.2 L (11.5-15.4) g/dL Hct 33.9 L (35.3-44.9) % Plt Count 519 H (140-400) K/mcL Neutrophils # 8.3 (1.6-8.9) K/mcL BMP 04/04/18 05:26 Sodium 136 Potassium 4.0 Chloride 100 Carbon Dioxide 30 H BUN 17 Creatinine 0.65 Glucose 155 H Calcium 9.1 Consult Discharge Plan - Plan Referrals: Edouard Cole MD [Primary Care Provider] - (4) DVT (deep venous thrombosis) Qualifiers: DVT location: lower extremity Affected thrombotic vein of extremity: popliteal Chronicity: acute Laterality: left Qualified Code(s): I82.432 - Acute embolism and thrombosis of left popliteal vein
[2018-04-04] MEDS: methylPREDNISolone 125 MG/2 ML VIAL IVP SCH ×2 (16:50→23:45)
--- NOTE | 2018-04-04 17:11 | Event Note ---
Date of Encounter: 04/04/18 Time of Encounter: 16:45 Patient was supposed to have an appt with Dr. Castanon in [facility] office today however she contacted us to let us know she is currently admitted so will document visit while inpatient. S: Ms. Lewis is a 67 year old female well known to [facility]. She is currently admitted for increased SOB. She has a history of Left TKR 1995, Left tkr revision 10/12/16, then I&D Lt knee 09/01/17. She had a recent DVT in the LLE in December. She had a fall onto the left knee this spring and has had ongoing issues with motion since that time. There is known loosening of the hardware however patient has a history of chronic wound healing issues with the left leg and h/o MRSA and patient has been managed conservatively nonoperatively by Dr. Castanon. Her limited ROM and pain have been ongoing patient states since her blood clot in December. O: Incision well healed to anterior left knee with a small superficial scab noted to the distal end of incision. No erythema. Knee is held at 45 degrees with very little flexion or extension beyond this either actively or passively. Moderate tenderness to palpation of knee and ankle. Dressings intact to ankle for chronic ulcers. good dorsiflexion of foot, grossly NV intact. A/P: left knee pain, s/p left TKR revision and I&D, known loosening to hardware will continue to manage nonoperatively Discussed with Dr. Castanon. Patient was seen recently by Dr. Castanon in office 03/14/18. Continue with conservative plan regarding knee prosthesis loosening including continued aid use which has in the past included use of motorized scooter. Encourage PT/OT participation, continued ADL retraining. Encourage ambulation as tolerated. Will follow up with Dr. Castanon in [facility] office in 6 weeks for reevaluation.
[2018-04-04] MEDS: Furosemide 40 MG TABLET PO SCH (17:14)
[2018-04-04] MEDS: Gabapentin 300 MG CAPSULE PO SCH (20:02)
[2018-04-05] MEDS: Azithromycin 500 MG in D5% in Water 250 ML IVPB SCH (03:18)
[2018-04-05] MEDS: Ipratropium/Albuterol Neb 3 ML IH SCH ×7 (03:42→23:35)
[2018-04-05 05:49] LABS: Basophils % 0.1 %; Hematocrit 35.2 % (35.3-44.9); Hemoglobin 10.6 g/dL (11.5-15.4); Immature Granulocytes % 1.1 % (0-4); Lymphocytes # 1.1 K/mcL (0.6-4.6); Lymphocytes % 12.2 %; Mean Corpuscular HGB Conc 30.1 g/dL (31.6-35.5); Mean Corpuscular Hemoglobin 22.8 pg (28.0-33.3); Mean Corpuscular Volume 75.9 fL (83.0-100.0); Mean Platelet Volume 9.1 fL (9.4-12.4); Monocytes # 0.2 K/mcL (0.0-1.3); Monocytes % 1.6 %; Platelet Count 531 K/mcL (140-400); Red Blood Count 4.64 M/mcL (3.82-4.97)
[2018-04-05] MEDS: Diltiazem CD (24hr) 240 MG CAPSULE PO SCH (07:55)
[2018-04-05] MEDS: methylPREDNISolone 125 MG/2 ML VIAL IVP SCH ×2 (07:55→17:25)
[2018-04-05] MEDS: *HR* Rivaroxaban 10 MG TABLET PO SCH (07:55)
[2018-04-05] MEDS: Furosemide 40 MG TABLET PO SCH ×2 (07:55→17:25)
[2018-04-05] MEDS: Aspirin Enteric Coated 81 MG Tablet PO SCH (07:55)
[2018-04-05] MEDS: *HR* Digoxin 0.25 MG TABLET PO SCH (07:55)
--- NOTE | 2018-04-05 11:09 | Internal Med Progress Note ---
Hospitalist Progress Note - Encounter Date of Encounter: 04/05/18 Time of Encounter: 11:09 - Subjective Interval History: Patient was seen and examined ay bedside - resp states improved no wheezes. She is expresses concern about L leg and that she feels that her DVT has worsened. Requesting ultrasound . - Exam Vitals: Temp Pulse Resp BP Pulse Ox 98.0 F 101 20 180/102 93 04/05/18 07:39 04/05/18 07:39 04/05/18 07:39 04/05/18 07:39 04/05/18 07:39 Exam: General appearance: Present: cooperative, A&O X 3, pleasant, no acute distress, answers questions appropriately Exam: Patient is awake alert and oriented, no acute distress. - Head Head exam: Present: normal inspection - Eye Eye exam: Present: EOMI, normal appearance - Respiratory Respiratory exam: Present: respiratory d Absent: chest wall tenderness - Cardiovascular Cardiovascular exam: Present: irregular rhythm. Absent: diastolic murmur, systolic murmur - GI/Abdominal GI/Abdominal exam: Present: normal bowel sounds, soft. Absent: tenderness - Extremities Exam Extremities exam: Present: warm, radial pulses palpable and symmetrical. Absent : tenderness Additional comments: L leg is contracted Left leg has dressing from wound care covering site of treated cellulitis - Neurological Exam Neurological exam: Present: no focal deficits, strengths equal and symetr throughout. Absent: motor sensory deficit, facial droop, speech deficit - Skin Skin exam: Present: dry, normal color, warm - Assessment and Plan (1) Acute exacerbation of chronic obstructive airways disease Current Visit: No Status: Acute Assessment and Plan: Much improved we will cont with IV solumedrol and titrate continue with Duo nebs cont with oxygen on 2l NC at home currently on 3 we will wean cont with Azithromycin 500 mg daily (2) History of cellulitis Current Visit: Yes Status: Acute Assessment and Plan: Recently treated for cellulitis Wound care consulted (3) Chronic diastolic CHF (congestive heart failure) Current Visit: No Status: Acute Assessment and Plan: will continue with home dose of lasix BNP better than previous monitor intake and output daily weights (4) DVT (deep venous thrombosis) Current Visit: No Status: Acute Assessment and Plan: Hx of DVT we will cont with Xarelto - diagnosed with DVT on previous admission in December Encourage to ambulate- PT consult (5) SOB (shortness of breath) Current Visit: No Status: Acute Assessment and Plan: secondary to COPD exacerbation (6) Tobacco abuse Current Visit: No Status: Acute Assessment and Plan: encourage patient to stop smoking (7) Chronic atrial fibrillation Current Visit: No Status: Chronic Assessment and Plan: Rate controlled cont with Xarelto cardizem (8) Difficulty walking Current Visit: No Status: Chronic Assessment and Plan: consult to PT, - patient was seen by ortho as courtesy seen she was inpatient and she had appointment with them as outpt- Has known loosening of hardware- recommending non opperative management PT/OT and ambulation - Time Spent with Patient Total time spent is greater than 50% in coordination of care (as documented) at patient's floor/unit and/or counseling patient: Internal Medicine: Result - Labs CBC & Chem 7: 04/05/18 05:29 04/05/18 05:29 Labs: Short CBC 04/05/18 Range/Units 05:29 WBC 9.4 (4.3-11.1) K/mcL Hgb 10.6 L (11.5-15.4) g/dL Hct 35.2 L (35.3-44.9) % Plt Count 531 H (140-400) K/mcL Neutrophils # 8.0 (1.6-8.9) K/mcL Consult Discharge Plan - Plan Referrals: Edouard Cole MD [Primary Care Provider] - (4) DVT (deep venous thrombosis) Qualifiers: DVT location: lower extremity Affected thrombotic vein of extremity: popliteal Chronicity: acute Laterality: left Qualified Code(s): I82.432 - Acute embolism and thrombosis of left popliteal vein
[2018-04-05 12:04] LABS: BUN/Creatinine Ratio 29 (6-26); Blood Urea Nitrogen 18 mg/dL (8-23); Calcium 9.6 mg/dL (8.6-10.3); Carbon Dioxide 27 mEq/L (23-29); Chloride 99 mEq/L (98-107); Glucose 202 mg/dL (70-105); Osmolality,Calculated 288 (280-300); Potassium 4.6 mEq/L (3.5-5.1); Sodium 135 mEq/L (136-145); eGFR For Non-African Americans > 60 (> 60)
[2018-04-05] MEDS: Budesonide/Formoterol 160/4.5 MDI IH SCH (20:14)
[2018-04-05] MEDS: *HR* HYDROcodone/Acet 5/325 mg TABLET PO PRN (21:47)
[2018-04-05] MEDS: Gabapentin 300 MG CAPSULE PO SCH (21:48)
[2018-04-06] MEDS: Azithromycin 500 MG in D5% in Water 250 ML IVPB SCH (03:43)
[2018-04-06] MEDS: Ipratropium/Albuterol Neb 3 ML IH SCH ×4 (04:10→16:36)
[2018-04-06] MEDS: methylPREDNISolone 125 MG/2 ML VIAL IVP SCH ×2 (05:21→18:19)
[2018-04-06 06:09] LABS: Basophils % 0.1 %; Hematocrit 36.5 % (35.3-44.9); Immature Granulocytes % 1.8 % (0-4); Lymphocytes # 1.7 K/mcL (0.6-4.6); Lymphocytes % 14.6 %; Mean Corpuscular HGB Conc 30.1 g/dL (31.6-35.5); Mean Corpuscular Hemoglobin 22.9 pg (28.0-33.3); Mean Platelet Volume 9.3 fL (9.4-12.4); Monocytes # 0.7 K/mcL (0.0-1.3); Monocytes % 5.8 %; Neutrophils # 8.8 K/mcL (1.6-8.9); Platelet Count 558 K/mcL (140-400); Segmented Neutrophils % 77.7 %
[2018-04-06 07:12] LABS: BUN/Creatinine Ratio 38 (6-26); Blood Urea Nitrogen 25 mg/dL (8-23); Calcium 9.3 mg/dL (8.6-10.3); Carbon Dioxide 28 mEq/L (23-29); Chloride 97 mEq/L (98-107); Glucose 237 mg/dL (70-105); Osmolality,Calculated 292 (280-300); Potassium 4.3 mEq/L (3.5-5.1); Sodium 135 mEq/L (136-145); eGFR For Non-African Americans > 60 (> 60)
[2018-04-06] MEDS: Budesonide/Formoterol 160/4.5 MDI IH SCH (07:40)
[2018-04-06] MEDS: *HR* Digoxin 0.25 MG TABLET PO SCH (08:41)
[2018-04-06] MEDS: Diltiazem CD (24hr) 240 MG CAPSULE PO SCH (08:41)
[2018-04-06] MEDS: Furosemide 40 MG TABLET PO SCH ×2 (08:42→18:18)
[2018-04-06] MEDS: Aspirin Enteric Coated 81 MG Tablet PO SCH (08:42)
[2018-04-06] MEDS: *HR* Rivaroxaban 10 MG TABLET PO SCH (08:42)
[2018-04-06] MEDS: *HR* HYDROcodone/Acet 5/325 mg TABLET PO PRN (11:32)
[2018-04-06 15:44] VITALS: BP 147/75
--- NOTE | 2018-04-06 16:56 | Discharge Summary ---
- NOTES TO OUTPATIENT PROVIDER Notes to Outpatient Provider: COPD excerbation -Steroid amber Orders not resulted at time of discharge: Pending orders 04/07/18 04:00 Chem 7 [Basic Metabolic Panel] AM 0400 04/08/18 04:00 Chem 7 [Basic Metabolic Panel] AM 0400 Date of Encounter: 04/06/18 Time of Encounter: 16:52 - Discharge Diagnosis (1) Acute exacerbation of chronic obstructive airways disease Priority: Primary Status: Acute (2) History of cellulitis Priority: Secondary Status: Acute (3) Chronic diastolic CHF (congestive heart failure) Priority: Secondary Status: Acute (4) SOB (shortness of breath) Priority: Secondary Status: Acute (5) Tobacco abuse Priority: Secondary Status: Acute (6) Chronic atrial fibrillation Priority: Secondary Status: Chronic (7) Difficulty walking Priority: Secondary Status: Chronic Hospital course: Ms. Lewis is a 67 year old female past medical hx of afib CHF copd oxygen dependent GERD HLD HTN DVT on Xarelto - sleeop apnea. Patient presented to the ED with a 2 day hx of SOB dispite the use of bronchodiltors. She required increase of oxygen use . CXR did show some mild pulmonary congestion EKG showed Afib no acute changes She has chronixc afib was dx with recent DVT was on coumadin switched to Xarelto. She also has chronic pain in L leg from loosening hardware s/p left TKR. She was started on oral steroids zithromax nebulizer treatments Given IV lasix - She cont to have wheezes, placed on IV steroids and resp state improved. She was switched back to oral lasix . SHe will be placed on a long steroid taper, cont with bronchodilators at home and O2 . She will follow up with her PCP She verbalized understanding. She is hemodynamically stable and ready for discharge Discharge discussed with: patient - Time Spent with Patient Total time spent providing and/or coordinating discharge services: - Discharge Medications Prescriptions: predniSONE [PredniSONE] 10 mg PO DAILY #30 tablet Home Medications: Albuterol Sulfate [Ventolin Hfa] 2 puff IH Q6H PRN 03/13/16 [History] Aspirin Enteric Coated [Aspirin EC] 81 mg PO DAILY 03/13/16 [History] BuPROPion [Wellbutrin] 100 mg PO BID 03/13/16 [History] Calcium Carbonate/Vitamin D3 [Oyster Shell Calcium-Vit D Tab] 500 mg PO BID [History] Citalopram [CeleXA] 20 mg PO DAILY 03/13/16 [History] Digoxin [Lanoxin] 0.25 mg PO DAILY 03/13/16 [History] Ferrous Sulfate 325 mg PO BIDWM 03/13/16 [History] Umeclidinium [place] [Incruse Ellipta] 62.5 mcg IH DAILY 08/01/16 [History] Mv,Ca,Min/Iron Fum/FA/Lyco/Lut [Sentry Multivit & Mineral Cplt] 1 tab PO DAILY 10/12/16 [History] Omeprazole [PriLOSEC] 40 mg PO DAILY 10/12/16 [History] Oxygen 2 l NS AD PRN 10/12/16 [History] Diltiazem HCl [Diltiazem ER] 240 mg PO DAILY 05/03/17 [History] Furosemide [Lasix] 80 mg PO BID 05/03/17 [History] Budesonide/Formoterol 160/4.5 [Symbicort 160/4.5] 2 puff IH BIDR 06/19/17 [ History] Acetaminophen [Tylenol] 650 mg PO Q6HR PRN #30 tablet 08/12/17 [Rx] Cholecalciferol (D-3) [Vitamin D] 1,000 unit PO DAILY tablet 12/28/17 [Rx] Gabapentin [Neurontin] 300 mg PO HS 02/27/18 [History] Rivaroxaban [Xarelto] 20 mg PO DAILY 03/20/18 [History] Citalopram Hydrobromide [Citalopram HBr] 40 mg PO DAILY 04/03/18 [History] Cyanocobalamin (Vitamin B-12) [Vitamin B-12] 1,000 mcg PO DAILY 04/03/18 [ History] Docusate [Colace] 100 mg PO DAILY PRN 04/03/18 [History] predniSONE [PredniSONE] 10 mg PO DAILY #30 tablet 04/06/18 [Rx] Allergies/Adverse Reactions: 3 Allergy/AdvReac Type Severity Reaction Status Date / Time lisinopril AdvReac Cough Verified 01/17/18 09:28 Date of admission: 04/03/18 17:06 Primary care physician: Edouard Cole MD Consults: 04/04/18 09:42 Consult to Physical Therapy [CONS] Routine Comment: Evaluate, develop and implement POC Reason for Consult: difficulty ambulating Does patient have active BEDREST order?: No Is patient medically & hemodynamically stable?: Yes Patient assessed for mobility or mobilized this visit?: No 04/04/18 12:28 Consult to Wound Care [CONS] Routine Reason for Consult: wound lle Call Completed: Yes Discharging clinician: Bharati Mendez Anticipated date of discharge: 04/06/18 - Constitutional Vitals: Temp Pulse Resp BP Pulse Ox 98.4 F 80 18 147/75 96 04/06/18 15:43 04/06/18 15:43 04/06/18 16:36 04/06/18 15:43 04/06/18 16:36 General appearance: Present: cooperative, A&O X 3, pleasant, no acute distress, answers questions appropriately - Head Head exam: Present: atraumatic, normocephalic - Eye Eye exam: Present: PERRL, conjuntiva pink, sclera anicteric Pupils: Present: PERRL - Neck Neck exam general surgery: Present: supple, trachea midline. Absent: lymphadenopathy - Respiratory Respiratory exam: Present: CTAB. Absent: accessory muscle use, rales, rhonchi, wheezes - Cardiovascular Cardiovascular exam: Present: RRR, +S1, +S2. Absent: diastolic murmur, gallop, rubs, systolic murmur - GI/Abdominal GI/Abdominal exam: Present: normal bowel sounds, soft, no peritoneal signs. Absent: distended, tenderness - Extremities Exam Extremities exam: Present: warm, radial pulses palpable and symmetrical. Absent : calf tenderness, cyanotic, pedal edema - Neurological Exam Neurological exam: Present: CN II-XII intact, oriented X3, no focal deficits. Absent: pronater drift, facial droop, speech deficit - Skin Skin exam: Present: dry, intact - Patient Status Disposition: Home, Self-Care Condition: Good Functional capacity at discharge: wheelchair bound Overall status at discharge: patient is back to baseline - Discharge Instructions Follow Up With: Edouard Cole MD [Primary Care Provider] - 04/11/18 1:15 pm - Diet and Activity Diet: advance to your usual diet
--- NOTE | 2018-04-06 17:23 | Physician Discharge Referral ---
Home Health/Hosp Referral Info Transfer to: Home Health Provider in Charge Post Discharge: PCP - Diagnosis (1) Acute exacerbation of chronic obstructive airways disease Priority: Primary Status: Acute (2) History of cellulitis Priority: Secondary Status: Acute (3) Chronic diastolic CHF (congestive heart failure) Priority: Secondary Status: Acute (4) SOB (shortness of breath) Priority: Secondary Status: Acute (5) Tobacco abuse Priority: Secondary Status: Acute (6) Chronic atrial fibrillation Priority: Secondary Status: Chronic (7) Difficulty walking Priority: Secondary Status: Chronic - Respiratory Orders Oxygen / L per min Smoking Cessation: Smoking cessation has been advised. For more information, call the [place] Tobacco Quit Line at 5-212-XRTC-NOW. - Diet/Nutrition Diet/Nutrition Orders: Cardiac - Activity Activity Orders: Walker - Services Needed Following services are medically necessary services: Nursing, Home Health Aide, Physical Therapy - Transfer Medications Prescriptions: predniSONE [PredniSONE] 10 mg PO DAILY #30 tablet Home Medications: Albuterol Sulfate [Ventolin Hfa] 2 puff IH Q6H PRN 03/13/16 [History] Aspirin Enteric Coated [Aspirin EC] 81 mg PO DAILY 03/13/16 [History] BuPROPion [Wellbutrin] 100 mg PO BID 03/13/16 [History] Calcium Carbonate/Vitamin D3 [Oyster Shell Calcium-Vit D Tab] 500 mg PO BID [History] Citalopram [CeleXA] 20 mg PO DAILY 03/13/16 [History] Digoxin [Lanoxin] 0.25 mg PO DAILY 03/13/16 [History] Ferrous Sulfate 325 mg PO BIDWM 03/13/16 [History] Umeclidinium [place] [Incruse Ellipta] 62.5 mcg IH DAILY 08/01/16 [History] Mv,Ca,Min/Iron Fum/FA/Lyco/Lut [Sentry Multivit & Mineral Cplt] 1 tab PO DAILY 10/12/16 [History] Omeprazole [PriLOSEC] 40 mg PO DAILY 10/12/16 [History] Oxygen 2 l NS AD PRN 10/12/16 [History] Diltiazem HCl [Diltiazem ER] 240 mg PO DAILY 05/03/17 [History] Furosemide [Lasix] 80 mg PO BID 05/03/17 [History] Budesonide/Formoterol 160/4.5 [Symbicort 160/4.5] 2 puff IH BIDR 06/19/17 [ History] Acetaminophen [Tylenol] 650 mg PO Q6HR PRN #30 tablet 08/12/17 [Rx] Cholecalciferol (D-3) [Vitamin D] 1,000 unit PO DAILY tablet 12/28/17 [Rx] Gabapentin [Neurontin] 300 mg PO HS 02/27/18 [History] Rivaroxaban [Xarelto] 20 mg PO DAILY 03/20/18 [History] Citalopram Hydrobromide [Citalopram HBr] 40 mg PO DAILY 04/03/18 [History] Cyanocobalamin (Vitamin B-12) [Vitamin B-12] 1,000 mcg PO DAILY 04/03/18 [ History] Docusate [Colace] 100 mg PO DAILY PRN 04/03/18 [History] predniSONE [PredniSONE] 10 mg PO DAILY #30 tablet 04/06/18 [Rx] Allergies/Adverse Reactions: 3 Allergy/AdvReac Type Severity Reaction Status Date / Time lisinopril AdvReac Cough Verified 01/17/18 09:28 Certification: Further, I certify that my clinical findings support that this patient is homebound (i.e. absences from home require considerable and taxing effort and are for medical reasons or congregational services or infrequently or short duration when for other reasons) because: Homebound Reason: Severity of cardiac or pulmonary status limits activity tolerance Attestation: My signature below is to certify that this patient is under my care and that I, or nurse practitioner, or a physician's electrician station assistant working with me, has a face-to -face encounter with this patient.
== END 2018-04-06 16:30 | disposition home or self-care (01) | DRG 191 ==
LOC: 3BNU 20:09 → EMEROOARM 20:09 → 3BNU 04-03 00:46
PROVIDERS: ADMIT Internal Medicine; ATTEND Internal Medicine

== ENCOUNTER 2018-07-19 06:21 | Inpatient (IN) ==
--- NOTE | 2018-07-19 06:22 | History & Physical Report ---
Date of Encounter: 07/19/18 Time of Encounter: 06:22 24 Hour HP Update - Instructions Instructions: If the History and Physical is less than 30 days old and was completed prior to A.M. admission and or procedure and has NOT been updated on calendar day of procedure please complete this update prior to performing procedure. - Update Patient reports changes in Medical Condition: No Changes in examination, assessment, or condition: No Changes in Medication: No Preop tests/diagnostics Reviewed: Yes Surgery Remains Indicated: Yes Consent for Planned Operative Procedure(s) Verified: Yes - Pre-Operative Checklist Preoperative Checklist Indicated: No Prophylactic Antibiotic Ordered: Yes
[2018-07-19] MEDS ORDERED: Albuterol 2.5 MG/3 ML NEBULIZER IH ONE (06:45)
[2018-07-19] MEDS ORDERED: Ringers Solution, Lactated 1,000 ML IVC SCH (06:45)
[2018-07-19] MEDS ORDERED: CeFAZolin Syr 2,000MG/20 ML 2,000 MG/20 ML SYRINGE IVPB ONE (06:45)
[2018-07-19] MEDS ORDERED: Famotidine 20 MG/2 ML VIAL IVP ONE (06:56)
[2018-07-19] MEDS ORDERED: Acetaminophen IV 1,000 MG/100 ML INFUS..BTL IVPB ONE (06:56)
[2018-07-19] MEDS ORDERED: Pregabalin 75 MG CAPSULE PO ONE (06:57)
--- NOTE | 2018-07-19 07:00 | History & Physical Report ---
Date of Encounter: 07/19/18 Time of Encounter: 07:00 24 Hour HP Update - Instructions Instructions: If the History and Physical is less than 30 days old and was completed prior to A.M. admission and or procedure and has NOT been updated on calendar day of procedure please complete this update prior to performing procedure. - Update Patient reports changes in Medical Condition: No Changes in examination, assessment, or condition: No Changes in Medication: No Preop tests/diagnostics Reviewed: Yes Surgery Remains Indicated: Yes Consent for Planned Operative Procedure(s) Verified: Yes - Pre-Operative Checklist Preoperative Checklist Indicated: Yes Prophylactic Antibiotic Ordered: Yes Home Medications Include Beta Angel: No Is VTE Prophylaxis Indicated?: Yes
[2018-07-19] MEDS ORDERED: Lidocaine -MPF 2% 2 ML VIAL ONE (07:01)
[2018-07-19] MEDS ORDERED: *HR* Propofol 200 MG/20 ML VIAL IVP ONE (07:01)
[2018-07-19] MEDS ORDERED: LIDOCAINE 1% PF 2 ML AMPUL ONE (07:01)
[2018-07-19] MEDS ORDERED: Ondansetron 4 MG/2 ML VIAL ONE (07:01)
[2018-07-19] MEDS ORDERED: *HR* FentaNYL (PF) 100 MCG/2 ML VIAL ONE ×2 (07:01→08:41)
[2018-07-19] MEDS ORDERED: *HR* Midazolam HCl 2 MG/2 ML VIAL ONE (07:01)
[2018-07-19] MEDS ORDERED: Tetracaine/PF 20 MG/2 ML AMPUL ONE (07:05)
[2018-07-19] MEDS ORDERED: ROPIVACAINE HCL/PF 0.5% 30 ML VIAL ONE (07:05)
[2018-07-19] MEDS ORDERED: Ethanol\\Acetic Acid\\Na Ace\\Ben 1,000 ML IRRIG.SOLN IR ONE (07:13)
--- NOTE | 2018-07-19 07:19 | Anesthesia Evaluation PreOp ---
Date of Encounter: 07/19/18 Time of Encounter: 07:15 - Past History Planned Operation: Left AKA Cardiac History: HTN, Hyperlipidemia, Arrhythmia (AFib on Xarelto and ASA), Other (PVD) Pulmonary History: COPD, KELLY Dx [employer] History: Denies Any Significant HX Other Medical History: GERD, Other (Morbid Obesity) Anesthesia History: No Prior Anesthetic Complications : No Alcohol Use: none Drug use: none Medications and Allergies Albuterol Sulfate [Ventolin Hfa] 2 puff IH Q6H PRN 03/13/16 [History] Aspirin Enteric Coated [Aspirin EC] 81 mg PO DAILY 03/13/16 [History] BuPROPion [Wellbutrin] 100 mg PO BID 03/13/16 [History] Calcium Carbonate/Vitamin D3 [Oyster Shell Calcium-Vit D Tab] 500 mg PO BID 03/13/16 [History] Citalopram [CeleXA] 20 mg PO DAILY 03/13/16 [History] Digoxin [Lanoxin] 0.25 mg PO DAILY 03/13/16 [History] Ferrous Sulfate 325 mg PO BIDWM 03/13/16 [History] Umeclidinium [place] [Incruse Ellipta] 62.5 mcg IH DAILY 08/01/16 [History] Mv,Ca,Min/Iron Fum/FA/Lyco/Lut [Sentry Multivit & Mineral Cplt] 1 tab PO DAILY 10/12/16 [History] Omeprazole [PriLOSEC] 40 mg PO DAILY 10/12/16 [History] Oxygen 2 l NS AD PRN 10/12/16 [History] Diltiazem HCl [Diltiazem ER] 240 mg PO DAILY 05/03/17 [History] Furosemide [Lasix] 80 mg PO BID 05/03/17 [History] Budesonide/Formoterol 160/4.5 [Symbicort 160/4.5] 2 puff IH BIDR 06/19/17 [History] Acetaminophen [Tylenol] 650 mg PO Q6HR PRN #30 tablet 08/12/17 [Rx] Cholecalciferol (D-3) [Vitamin D] 1,000 unit PO DAILY tablet 12/28/17 [Rx] Gabapentin [Neurontin] 300 mg PO HS 02/27/18 [History] Rivaroxaban [Xarelto] 20 mg PO DAILY 03/20/18 [History] Citalopram Hydrobromide [Citalopram HBr] 40 mg PO DAILY 04/03/18 [History] Cyanocobalamin (Vitamin B-12) [Vitamin B-12] 1,000 mcg PO DAILY 04/03/18 [History] Docusate [Colace] 100 mg PO DAILY PRN 04/03/18 [History] predniSONE [PredniSONE] 10 mg PO DAILY #30 tablet 04/06/18 [Rx] Doxycycline 100 mg PO BID #10 capsule 04/24/18 [Rx] Ciprofloxacin HCl [Cipro] 500 mg PO BID 05/03/18 [History] Allergy/AdvReac Type Severity Reaction Status Date / Time lisinopril AdvReac Cough Verified 07/10/18 15:41 - Meds/Allergy Pre-op Review Medications Reviewed: Yes Allergies Reviewed: Yes Beta Blockers on Current Med List: No Anesthesia Results - Labs Laboratory Tests 05/30/18 07/10/18 07/10/18 14:30 15:48 15:48 Hgb 11.2 L Hct 37.3 Plt Count 454 H Sodium 135 L Potassium 4.4 BUN 15 Creatinine 0.70 - Imaging EKG: report reviewed (AFib) Additional studies: 2017 ECHO EF 55%, mild pulm htn Anesthesia Exam O2 Sat Height 1.55 m Height 1.55 m Height 1.55 m Weight 117.934 kg Weight 117.934 kg Weight 117.934 kg O2 Sat by Pulse Oximetry 93 O2 Sat by Pulse Oximetry 93 Vital Signs Temp Pulse Resp BP Pulse Ox 98.1 F 76 18 132/81 93 07/19/18 06:43 07/19/18 06:43 07/19/18 06:43 07/19/18 06:43 07/19/18 06:43 Height: 5'1 Weight: 260 lbs NPO (# of Hours): MN Pain Scale: 0 - HEENT Pupil (Motor): Pupils equal, EOMI Mallampati: III Oral Opening: Less than or equal to 3 - [employer] LOC: Oriented [employer] Motor: Normal RUE, Normal LUE, Normal RLE, Normal LLE, Normal Face [employer] Sensory: Normal: RUE, LUE, RLE, LLE, Face - Cardiac Rhythm: Regular Murmur: None JVD: No Carotid Bruit: No - Pulmonary Breath Sounds: bilateral Clear Respiratory Effort: Symmetrical Anesthesia Assess/Plan ASA Score: 4 (MO COPD KELLY) Level of consciousness: Cooperative Anesthetic Plan: General, Regional Nerve Block Regional Nerve Block Plan: Femoral, Sciatic Monitoring Plan: Standard Monitors Recovery Plan: PACU (Discussed GA, RA, agrees to proceed)
[2018-07-19] MEDS ORDERED: Bupivacaine/Clonidine Syringe 1 EACH SYRINGE ONE (07:22)
--- NOTE | 2018-07-19 07:53 | Anesthesia Procedures ---
Date of Encounter: 07/19/18 Time of Encounter: 07:00 Procedures: Anesthesia - Nerve Block Procedure Date: 07/19/18 Time: 07:30 Pre-op Diagnosis: Infected Prosthesis Left TKA Surgical Procedure: AKA Checklist: Correct Patient Identifier Correct side: Left Blood Thinner: Yes (on Xarelto) Monitor Applied: EKG, BP, Pulse Oximetry Supplemental Oxygen via Nasal Cannula (L/min): 2 Sedation: Versed (mg): 1 Sedation: Fentanyl (mcg): 50 Indication: Post Op Analgesia Pre-op Neuro Deficits: No Block Type: Femoral, Sciatic Catheter placed: No Depth at skin (cm): 4 Sterile Technique: Yes Ultrasound used: Yes Anatomy identified: Yes Visual spread of Local: Yes Neuro Stimulation: Yes Nerve Stimulator Range: >0.4 - 0.6 mA Blood on Needle Aspiration: No Smooth Injection of Local: Yes Pain with Injection of Local: No Prep: Chlorhexadine Needle: 22 x 50 mm Stimuplex, 21 x 100 mm Stimuplex Local: 0.25% Bupivicaine w/Clonidine 20 mcg/cc, Ropivacaine Volume (cc): 30+20cc Number of Attempts: 1 Complications: None/effective block Vitals: Vital Signs/O2 Sat/Glucose, Most Current Temp Pulse Resp BP Pulse Ox 07/19/18 06:46 18 93 07/19/18 06:43 98.1 F 76 18 132/81 93
[2018-07-19] MEDS ORDERED: *HR* Succinylcholine 200 MG/10 ML VIAL IVP ONE (08:01)
[2018-07-19] MEDS ORDERED: Dexamethasone 4 MG/ML VIAL ONE (08:07)
[2018-07-19] MEDS ORDERED: *HR* Promethazine 25 MG/ML VIAL IVP PRN (08:24)
[2018-07-19] MEDS ORDERED: *HR* Morphine 2 MG/ML SYRINGE IVP PRN (08:24)
[2018-07-19] MEDS ORDERED: *HR* OxyCODONE Immed Rel 5 MG TABLET PO PRN (08:24)
[2018-07-19] MEDS ORDERED: Lidocaine -MPF 4% 5 ML AMPUL ONE (08:40)
--- NOTE | 2018-07-19 10:08 | Operative Note ---
Date of procedure: 07/19/18 Pre-op diagnosis: Chronically infected left knee prosthesis Post-op diagnosis: same Procedure: Left above-knee amputation Anesthesia: CHELLE Surgeon: Torres Moreno Was there an cleaner assistant present: Yes Sports Photographer: Torres Moreno Estimated blood loss (cc): 200 Specimen: Left above-knee amputation Condition: stable Disposition: PACU Procedure in Detail: Above-knee amputation, left +30% (profound morbid obesity and chronically infected knee prosthesis) The patient was taken to the major operating suite placed in the supine position and given adequate general endotracheal anesthesia. The left leg was prepped and draped in sterile fashion utilizing Betadine solution standard draping techniques. Timeout was taken patient was identified. Lateralizing neha was identified. I used a skin scribe to neha out a [place] orientation on the thigh. With the posterior flap longer than the anterior flap. I divided the skin with a #10 blade. It is noted that the skin had multiple dilated veins consistent with chronic venous hypertension. Her profound morbid obesity with body mass index of 49 resulted in significant increase in length of time a skin division, at least 30 minutes. Saphenous vein was divided between clamps and hemostatic ligatures. I used electrocautery to divide the anterior compartment down to the femur. The lateral musculature was divided with electrocautery. I isolated the superficial femoral artery and vein between clamps and hemostatic ligatures this was divided. The biceps were then divided with electrocautery isolating the sciatic nerve. This was divided between clamps and hemostatic ligatures of 0 silk. At this point the case was turned over to Dr. Castanon who performed a removal of left total knee prosthesis with femoral stem. I resumed primary care of the patient at this point. Periosteal elevator was used to remove the periosteum and musculature from the bone to the appropriate level. The femur was divided with an oscillating saw. The specimen was sent off the field. Hemostasis was gained with electrocautery, 0 silk stick ties, and 0 silk hemostatic ligatures. This gave an excellent technical result. The wound was irrigated with copious amounts of antibiotic containing solution. I reapproximated the deep muscular layer with interrupted 0 Vicryl. I interrupted the superficial muscular layer with interrupted 0 Vicryl. The subcutaneous tissue was reapproximated with interrupted 2-0 Vicryl. The skin was reapproximated with skin clips. The patient tolerated the procedure well a sterile dressing with compression was applied and he was transferred to the recovery area in stable condition. Closure and muscular division added at least an additional 30 minutes to the case secondary to profound morbid obesity
[2018-07-19] MEDS ORDERED: *HR* Metoprolol 5 MG/5 ML VIAL IVP PRN (11:20)
[2018-07-19] MEDS ORDERED: Acetaminophen 325 MG TABLET PO PRN (11:20)
[2018-07-19] MEDS: 0.9 % Sodium Chloride 1,000 ML IVC SCH (13:05)
[2018-07-19] MEDS: OXYCODONE Oral CONC 10 MG/0.5 ML ORAL.SYG SL PRN ×2 (13:06→17:29)
[2018-07-19] MEDS: cefOXitin 2,000 MG in Water for inj. (sterile) 20 ML 20 ML IVP SCH (15:54)
[2018-07-19] MEDS: *HR* OxyCODONE/APAP 5/325 TABLET PO PRN ×2 (16:00→20:08)
[2018-07-19] MEDS: *HR* Heparin 5,000 UNIT/ML VIAL SQ SCH (17:30)
[2018-07-19] MEDS ORDERED: *HR* Heparin 5,000 UNIT/ML VIAL SQ SCH (18:00)
[2018-07-19] MEDS: Gabapentin 300 MG CAPSULE PO SCH (20:08)
[2018-07-19] MEDS: Furosemide 40 MG TABLET PO SCH (20:09)
[2018-07-20] MEDS: cefOXitin 2,000 MG in Water for inj. (sterile) 20 ML 20 ML IVP SCH ×3 (01:01→17:23)
[2018-07-20] MEDS: 0.9 % Sodium Chloride 1,000 ML IVC SCH ×2 (01:03→20:25)
[2018-07-20] MEDS: *HR* OxyCODONE/APAP 5/325 TABLET PO PRN ×2 (02:12→19:44)
[2018-07-20 04:58] LABS: Basophils % 0.1 %; Hemoglobin 9.7 g/dL (11.5-15.4); Immature Granulocytes % 0.6 % (0-4); Lymphocytes # 1.4 K/mcL (0.6-4.6); Mean Corpuscular HGB Conc 29.4 g/dL (31.6-35.5); Mean Corpuscular Hemoglobin 22.4 pg (28.0-33.3); Mean Corpuscular Volume 76.2 fL (83.0-100.0); Mean Platelet Volume 9.7 fL (9.4-12.4); Monocytes # 1.1 K/mcL (0.0-1.3); Monocytes % 6.6 %; Neutrophils # 13.3 K/mcL (1.6-8.9); Platelet Count 448 K/mcL (140-400); Red Blood Count 4.33 M/mcL (3.82-4.97); Red Cell Distribution Width 17.7 % (11.5-14.5); Segmented Neutrophils % 83.7 %
[2018-07-20 05:14] LABS: BUN/Creatinine Ratio 23 (6-26); Blood Urea Nitrogen 19 mg/dL (8-23); Calcium 9.1 mg/dL (8.6-10.3); Carbon Dioxide 23 mEq/L (23-29); Chloride 102 mEq/L (98-107); Glucose 173 mg/dL (70-105); Osmolality,Calculated 282 (280-300); Potassium 4.7 mEq/L (3.5-5.1); Sodium 133 mEq/L (136-145); eGFR For Non-African Americans > 60 (> 60)
[2018-07-20] MEDS: *HR* Heparin 5,000 UNIT/ML VIAL SQ SCH ×2 (06:30→17:23)
[2018-07-20] MEDS: OXYCODONE Oral CONC 10 MG/0.5 ML ORAL.SYG SL PRN (07:04)
[2018-07-20] MEDS: Aspirin Enteric Coated 81 MG Tablet PO SCH (10:23)
[2018-07-20] MEDS: Diltiazem CD (24hr) 240 MG CAPSULE PO SCH (10:23)
[2018-07-20] MEDS: *HR* Digoxin 0.25 MG TABLET PO SCH (10:23)
[2018-07-20] MEDS: Furosemide 40 MG TABLET PO SCH ×2 (10:24→17:23)
--- NOTE | 2018-07-20 13:11 | General Surgery Progress Note ---
Date of Encounter: 07/20/18 Time of Encounter: 08:20 - Assessment and Plan (1) Above knee amputation of left lower extremity Current Visit: Yes Status: Acute The patient is postoperative day 1 from left above knee amputation. Physical therapy and occupational therapy will be involved in her care today. We will continue with postoperative pain management and plan rehabilitation after cleared by physical therapy and occupational therapy Subjective Narrative: The patient is postoperative day 1 from left above-knee amputation. This was quite difficult because of her profound morbid obesity. The wound is intact with no evidence of bleeding. She uses narcotics chronically for pain and reports her pain at 15 out of 10 while she is comfortable and conversational. I think that she is on a reasonable amount of narcotic pain medicine and I will not increase the narcotic further. We will plan physical therapy and occupational therapy today. We will plan discharge to extended care facility most likely on Monday. Objective Vital Signs - Last 8 Hours Temp Pulse Resp BP Pulse Ox 07/20/18 11:50 98.1 F 99 15 154/75 98 07/20/18 08:10 97.7 F 69 15 129/82 96 Intake and Output 07/19/18 07/20/18 07/20/18 23:59 07:59 15:59 Intake Total 260 / 260 1420 / 1420 120 / 120 Output Total 300 / 300 300 / 300 0 / 0 Balance -40 / -40 1120 / 1120 120 / 120 Intake: IV Fluids 20 / 20 1020 / 1020 0.9 % Sodium Chloride 1,000 ML 1000 / 1000 @ 75 mls/hr IVC .[id number] [facility] Rx #:[id number] Mefoxin 2,000 MG In Water for 20 20 20 / 20 inj. (sterile) 20 ML @ 300 mls/ hr IVP Q8HR [facility] Rx#:[id number] Oral 240 / 240 400 / 400 120 / 120 Output: Urine 300 / 300 300 / 300 0 / 0 Other: Meal Dinner Percent of Meal Consumed 50% Stool Size Smear Stool Color Brown # Voids 1 # Bowel Movements 0 Weight 114.8 kg Patient Weight 07/20/18 23:59 Weight 114.8 kg - General physical appearance well developed, well nourished, obese, other (Postoperative day 1 intact dressing left above-knee amputation stump) - Respiratory normal expansion, normal respiratory effort, clear to percussion, clear to auscultation - Cardiovascular Cardiovascular exam: Present: RRR, no murmurs/rubs/gallops - Abdomen Abdomen: Present: bowel sounds present, soft, non tender - Incision Incision: Present: clean and dry - Psychiatric oriented to time, oriented to person, oriented to place, speech is normal, memory intact - Labs 07/20/18 03:11 07/20/18 03:11 Diabetes panel 07/20/18 Range/Units 03:11 Sodium 133 L (136-145) mEq/L Potassium 4.7 (3.5-5.1) mEq/L Chloride 102 (98-107) mEq/L Carbon Dioxide 23 (23-29) mEq/L BUN 19 (8-23) mg/dL Creatinine 0.83 (0.60-1.20) mg/dL Glucose 173 H (70-105) mg/dL Calcium 9.1 (8.6-10.3) mg/dL Calcium panel 07/20/18 Range/Units 03:11 Calcium 9.1 (8.6-10.3) mg/dL Pituitary panel 07/20/18 Range/Units 03:11 Sodium 133 L (136-145) mEq/L Potassium 4.7 (3.5-5.1) mEq/L Chloride 102 (98-107) mEq/L Carbon Dioxide 23 (23-29) mEq/L BUN 19 (8-23) mg/dL Creatinine 0.83 (0.60-1.20) mg/dL Glucose 173 H (70-105) mg/dL Calcium 9.1 (8.6-10.3) mg/dL Adrenal panel 07/20/18 Range/Units 03:11 Sodium 133 L (136-145) mEq/L Potassium 4.7 (3.5-5.1) mEq/L Chloride 102 (98-107) mEq/L Carbon Dioxide 23 (23-29) mEq/L BUN 19 (8-23) mg/dL Creatinine 0.83 (0.60-1.20) mg/dL Glucose 173 H (70-105) mg/dL Calcium 9.1 (8.6-10.3) mg/dL Consult Discharge Plan - Plan Referrals: Torres Moreno MD [Partnered Physician] - 08/03/18 9:55 am Edouard Cole MD [Primary Care Provider] -
[2018-07-20] MEDS: Gabapentin 300 MG CAPSULE PO SCH (21:47)
[2018-07-21] MEDS: cefOXitin 2,000 MG in Water for inj. (sterile) 20 ML 20 ML IVP SCH ×3 (00:08→15:39)
[2018-07-21 04:26] LABS: Basophils # 0.1 K/mcL (0.0-0.2); Basophils % 0.3 %; Eosinophils # 0.1 K/mcL (0.0-0.6); Eosinophils % 0.8 %; Hemoglobin 8.3 g/dL (11.5-15.4); Immature Granulocytes % 0.4 % (0-4); Mean Corpuscular HGB Conc 29.6 g/dL (31.6-35.5); Mean Corpuscular Hemoglobin 22.4 pg (28.0-33.3); Mean Corpuscular Volume 75.7 fL (83.0-100.0); Mean Platelet Volume 9.5 fL (9.4-12.4); Monocytes # 1.1 K/mcL (0.0-1.3); Monocytes % 7.3 %; Neutrophils # 11.1 K/mcL (1.6-8.9); Platelet Count 364 K/mcL (140-400); Red Cell Distribution Width 17.6 % (11.5-14.5); Segmented Neutrophils % 77.2 %
[2018-07-21 04:47] LABS: BUN/Creatinine Ratio 19 (6-26); Blood Urea Nitrogen 12 mg/dL (8-23); Calcium 8.6 mg/dL (8.6-10.3); Carbon Dioxide 25 mEq/L (23-29); Chloride 104 mEq/L (98-107); Glucose 135 mg/dL (70-105); Osmolality,Calculated 280 (280-300); Potassium 3.7 mEq/L (3.5-5.1); Sodium 134 mEq/L (136-145); eGFR For Non-African Americans > 60 (> 60)
[2018-07-21] MEDS: *HR* Heparin 5,000 UNIT/ML VIAL SQ SCH ×2 (05:09→17:15)
[2018-07-21] MEDS: Furosemide 40 MG TABLET PO SCH ×2 (07:58→16:51)
[2018-07-21] MEDS: Aspirin Enteric Coated 81 MG Tablet PO SCH (07:58)
[2018-07-21] MEDS: Diltiazem CD (24hr) 240 MG CAPSULE PO SCH (07:59)
[2018-07-21] MEDS: *HR* Digoxin 0.25 MG TABLET PO SCH (07:59)
[2018-07-21] MEDS: OXYCODONE Oral CONC 10 MG/0.5 ML ORAL.SYG SL PRN ×2 (08:35→16:53)
--- NOTE | 2018-07-21 11:07 | General Surgery Progress Note ---
<Concepcion Box - Last Filed: 07/21/18 11:04> Date of Encounter: 07/21/18 Time of Encounter: 11:04 - Assessment and Plan (1) Above knee amputation of left lower extremity Current Visit: Yes Status: Acute Date of procedure: 07/19/18 Pre-op diagnosis: Chronically infected left knee prosthesis Post-op diagnosis: same Procedure: Left above-knee amputation Anesthesia: GETA Surgeon: Torres Moreno POD #2 as above. Dressing taken down. Stump noted to be draining small amount of seroma fluid. No evidence of infection noted. WBC is down trending. Hgb stable. VSS. PT/OT following Plan: Daily wound care per orders continue supportive care and discomfort management out of bed to chair at least TID. Do not consume trays in the bed. Continue PT/OT discharge planning to pickle a manner in the next 24 to 48 hours (2) GERD (gastroesophageal reflux disease) Current Visit: Yes Status: Chronic Continue G.I. and DVT prophylaxis Qualifiers: Esophagitis presence: esophagitis presence not specified Qualified Code(s): K21.9 - Gastro-esophageal reflux disease without esophagitis (3) HTN (hypertension) Current Visit: Yes Status: Chronic Continue home medications Qualifiers: Hypertension type: essential hypertension Qualified Code(s): I10 - Es sential (primary) hypertension (4) Afib Current Visit: Yes Status: Chronic Vital signs stable heart rate controlled surround total held, may resume 5 days after surgery Qualifiers: Atrial fibrillation type: chronic Qualified Code(s): I48.2 - Chronic atrial fibrillation (5) COPD (chronic obstructive pulmonary disease) Current Visit: Yes Status: Acute Consult to respiratory therapy for aggressive pulmonary treatment and inhaler administration continue home meds Qualifiers: COPD type: unspecified COPD Qualified Code(s): J44.9 - Chronic obstructive pulmonary disease, unspecified Subjective Patient reports: no new complaints, feels better, still having pain, pain is less, tolerating liquids well, tolerating a regular diet, voiding w/o difficulty, flatus, bowel movement, afebrile Objective Vital Signs - Last 8 Hours Temp Pulse Resp BP Pulse Ox 07/21/18 10:41 99.0 F 83 18 124/64 92 07/21/18 06:25 98.4 F 74 15 118/73 94 Intake and Output 07/20/18 07/21/18 07/21/18 23:59 07:59 15:59 Intake Total 1220 / 1220 220 / 220 260 / 260 Output Total 0 / 0 650 / 650 Balance 1220 / 1220 220 / 220 -390 / -390 Intake: IV Fluids 1020 / 1020 20 20 0.9 % Sodium Chloride 1,000 ML 1000 / 1000 @ 75 mls/hr IVC .[id number] [facility] Rx #:[id number] Mefoxin 2,000 MG In Water for 20 / 20 inj. (sterile) 20 ML @ 300 mls/ hr IVP Q8HR [facility] Rx#:[id number] Oral 200 / 200 200 / 200 240 / 240 Output: Urine 0 / 0 650 / 650 Other: Meal Breakfast Percent of Meal Consumed 50% Stool Size Moderate Large Small Stool Consistency loose loose loose liquid liquid Stool Color Brown Brown Brown # Voids 1 1 2 # Bowel Movements 1 1 Weight 115.1 kg Patient Weight 07/21/18 23:59 Weight 115.1 kg - General physical appearance well developed, well nourished, no distress - Eyes PERRL, normal ocular movement - ENT normal nares, normal mucosa - Neck Neck exam: trachea midline - Respiratory normal expansion, normal respiratory effort, clear to auscultation - Cardiovascular Cardiovascular exam: Present: distant heart sounds - Abdomen Abdomen: Present: bowel sounds present, soft, non tender - Incision Incision: Present: draining, intact (Left AKA), serosanguinous - Integumentary no rash - Neurologic normal coordination, normal sensation - Musculoskeletal normal posture, other (LEft AKA noted) - Psychiatric oriented to time, oriented to person, oriented to place, speech is normal, memory intact - Labs 07/21/18 03:22 07/21/18 03:22 Diabetes panel 07/21/18 Range/Units 03:22 Sodium 134 L (136-145) mEq/L Potassium 3.7 (3.5-5.1) mEq/L Chloride 104 (98-107) mEq/L Carbon Dioxide 25 (23-29) mEq/L BUN 12 (8-23) mg/dL Creatinine 0.63 (0.60-1.20) mg/dL Glucose 135 H (70-105) mg/dL Calcium 8.6 (8.6-10.3) mg/dL Calcium panel 07/21/18 Range/Units 03:22 Calcium 8.6 (8.6-10.3) mg/dL Pituitary panel 07/21/18 Range/Units 03:22 Sodium 134 L (136-145) mEq/L Potassium 3.7 (3.5-5.1) mEq/L Chloride 104 (98-107) mEq/L Carbon Dioxide 25 (23-29) mEq/L BUN 12 (8-23) mg/dL Creatinine 0.63 (0.60-1.20) mg/dL Glucose 135 H (70-105) mg/dL Calcium 8.6 (8.6-10.3) mg/dL Adrenal panel 07/21/18 Range/Units 03:22 Sodium 134 L (136-145) mEq/L Potassium 3.7 (3.5-5.1) mEq/L Chloride 104 (98-107) mEq/L Carbon Dioxide 25 (23-29) mEq/L BUN 12 (8-23) mg/dL Creatinine 0.63 (0.60-1.20) mg/dL Glucose 135 H (70-105) mg/dL Calcium 8.6 (8.6-10.3) mg/dL Consult Discharge Plan - Plan Instructions: Above the Knee Amputation (DC) Additional Instructions: General Surgical Discharge Instructions 1. Activity per PT/OT. 2. You may shower beginning today, but no tub baths, soaking, or swimming for 2 weeks. 3. You may resume driving when you are off narcotics and are cleared by PT/OT to do so 4. You may take the as needed Percocet. Take narcotics as directed. Do not take more narcotics then directed and do not share your narcotics with any other person. Do not drink alcohol while on narcotics. 5. Take stool softeners (Colace) or a water based laxative (Miralax) while taking narcotics. You may hold for loose stools. 6. Report any fevers greater than 100.5F, increase discomfort, drainage that looks like pus, increased redness or pain at the surgical site, or any vomiting. 7. Report any pain in the calves, shortness of breath, or rapid heartbeat. 8. Follow-up in the office as directed. 9.Continue antibiotics 10. Resume your Xarelto on Wound Care: Remove dressing. Wash with antibacterial soap. Cover with abd pad (if drainaing). Wrap with Kerlix. Wrap with Luis wraps or cover with stump sock. Referrals: Torres Moreno MD [Partnered Physician] - 08/03/18 9:55 am Edouard Cole MD [Primary Care Provider] - Prescriptions: OxyCODONE/APAP 5/325 [Percocet 5/325 MG] 1 each PO Q6HR PRN 3 Days #12 tablet PRN Reason: Pain Docusate Sodium [Colace] 100 mg PO BID PRN #30 capsule PRN Reason: Constipation <New Mario - Last Filed: 07/22/18 16:16> Date of Encounter: 07/21/18 - Assessment and Plan (1) Ileus Current Visit: No Status: Acute (2) Above knee amputation of left lower extremity Current Visit: Yes Status: Acute Objective Vital Signs - Last 8 Hours Temp Pulse Resp BP Pulse Ox 07/22/18 14:41 98.5 F 84 16 124/85 94 07/22/18 10:27 98.2 F 81 19 154/89 98 Intake and Output 07/22/18 07/22/18 07/22/18 07:59 15:59 23:59 Intake Total 20 / 20 260 / 260 Output Total 0 / 0 1700 / 1700 Balance 20 / 20 -1440 / -1440 Intake: IV Fluids 20 / 20 20 / 20 Mefoxin 2,000 MG In Water for 20 / 20 20 / 20 inj. (sterile) 20 ML @ 300 mls/ hr IVP Q8HR [facility] Rx#:[id number] Oral 0 / 0 240 / 240 Output: Urine 0 / 0 900 / 900 Urine/Stool Mix 800 / 800 Other: Meal Lunch NPO Percent of Meal Consumed 0% Stool Size Small Stool Consistency loose Stool Color Green # Bowel Movements 1 Weight 114 kg Patient Weight 07/22/18 23:59 Weight 114 kg - Labs 07/22/18 10:04 07/22/18 10:04 Diabetes panel 07/22/18 Range/Units 10:04 Sodium 138 (136-145) mEq/L Potassium 3.6 (3.5-5.1) mEq/L Chloride 102 (98-107) mEq/L Carbon Dioxide 31 H (23-29) mEq/L BUN 12 (8-23) mg/dL Creatinine 0.69 (0.60-1.20) mg/dL Glucose 138 H (70-105) mg/dL Calcium 9.2 (8.6-10.3) mg/dL Calcium panel 07/22/18 Range/Units 10:04 Calcium 9.2 (8.6-10.3) mg/dL Pituitary panel 07/22/18 Range/Units 10:04 Sodium 138 (136-145) mEq/L Potassium 3.6 (3.5-5.1) mEq/L Chloride 102 (98-107) mEq/L Carbon Dioxide 31 H (23-29) mEq/L BUN 12 (8-23) mg/dL Creatinine 0.69 (0.60-1.20) mg/dL Glucose 138 H (70-105) mg/dL Calcium 9.2 (8.6-10.3) mg/dL Adrenal panel 07/22/18 Range/Units 10:04 Sodium 138 (136-145) mEq/L Potassium 3.6 (3.5-5.1) mEq/L Chloride 102 (98-107) mEq/L Carbon Dioxide 31 H (23-29) mEq/L BUN 12 (8-23) mg/dL Creatinine 0.69 (0.60-1.20) mg/dL Glucose 138 H (70-105) mg/dL Calcium 9.2 (8.6-10.3) mg/dL - Attending Attestation I have personally performed a face to face evaluation on this patient. I have reviewed and agree with the care plan. History and Exam by me shows: I reviewed the above assessment and evaluation and agree with the above plan.
--- NOTE | 2018-07-21 11:23 | Discharge Summary ---
Addendum entered and electronically signed by Concepcion Box CNP 07/23/18 10:07: Please note, this note was drafted on 07/21/2018. Actual date of d/c 07/23/2018 Original Note: <Concepcion Box - Last Filed: 07/23/18 10:06> Orders not resulted at time of discharge: Pending orders 07/19/18 06:57 US anesthesia pain block [US] Routine 07/19/18 09:58 Surgical Pathology [PTH] Routine Date of Encounter: 07/23/18 Time of Encounter: 08:49 - Discharge Diagnosis (1) Above knee amputation of left lower extremity Priority: Primary Status: Acute (2) GERD (gastroesophageal reflux disease) Priority: Secondary Status: Chronic Qualifiers: Esophagitis presence: esophagitis presence not specified Qualified Code(s): K21.9 - Gastro-esophageal reflux disease without esophagitis (3) HTN (hypertension) Priority: Secondary Status: Chronic Qualifiers: Hypertension type: essential hypertension Qualified Code(s): I10 - Essential (primary) hypertension (4) Afib Priority: Secondary Status: Chronic Qualifiers: Atrial fibrillation type: chronic Qualified Code(s): I48.2 - Chronic atrial fibrillation (5) COPD (chronic obstructive pulmonary disease) Priority: Secondary Status: Acute Qualifiers: COPD type: unspecified COPD Qualified Code(s): J44.9 - Chronic obstructive pulmonary disease, unspecified General Surgery Exam Initial Vital Signs Temp Pulse Resp BP Pulse Ox 98.1 F 76 18 132/81 93 07/19/18 06:43 07/19/18 06:43 07/19/18 06:43 07/19/18 06:43 07/19/18 06:43 Vital Signs Temp Pulse Resp BP Pulse Ox 07/23/18 07:47 98 F 86 17 133/83 97 07/23/18 04:38 98.5 F 89 18 141/82 99 07/22/18 23:18 98.3 F 75 15 109/72 98 07/22/18 19:48 98.3 F 90 18 117/77 98 07/22/18 19:32 16 98 07/22/18 14:41 98.5 F 84 16 124/85 94 07/22/18 10:27 98.2 F 81 19 154/89 98 Intake and Output 07/22/18 07/23/1818 23:59 07:59 15:59 Intake Total 260 / 260 40 / 40 Output Total 0 / 0 Balance 260 / 260 40 / 40 Intake: IV Fluids 20 / 20 40 / 40 Mefoxin 2,000 MG In Water for 20 20 40 / 40 inj. (sterile) 20 ML @ 300 mls/ hr IVP Q8HR [facility] Rx#:[id number] Oral 240 / 240 0 / 0 Output: Urine 0 / 0 Other: Meal Dinner Percent of Meal Consumed 0% Stool Size Small Small Stool Consistency loose liquid liquid Stool Color Brown Brown Green # Voids 1 1 # Bowel Movements 1 VITAL SIGNS: Reviewed. See [facility] GENERAL: In no apparent distress. HEENT: [Normocephalic, atraumatic, pupils are equal and reactive, extraocular motions intact, oropharynx is pink and moist, there is no neck adenopathy or JVD noted.] CHEST/RESPIRATORY: The thorax is free from signs of trauma. Lung sounds: [clear to auscultation, normal respiratory effort] CARDIAC: [Regular rate and rhythm. Normal S1 and S2, without murmurs, gallops, or rubs.] VASCULAR: [No Edema. 2+ peripheral pulses.] ABDOMEN: [soft, nontender, active bowel sounds ] INCISION: [left AKA site clean, intact, small amount of serous drainage. There are no signs or symptoms of infection..] MUSCULOSKELETAL: [generalized deconditioning noted.] NEUROLOGIC EXAM: [Alert and oriented x 3. Speech normal. Follows commands.] PSYCHIATRIC: [Mood normal.] SKIN: [No rash or lesions.] - Hospital Course Hospital course: Ms. 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 She has been evaluated by physical and occupational therapy and recommended to go to a detention facility/rehab. Her hospital course is been relatively uncomplicated. She did have a low grade temp on 07/21 felt to be related to atelectasis as she was not using her incentive spirometry nor received her inhalers. Respiratory therapy assisted and aggressive pulmonary toileting and she recovered. We will begin discharge planning to [facility] with a follow-up with Dr. Moreno and approximately 2 weeks. - Time Spent with Patient Total time spent providing and/or coordinating discharge services: - Discharge Medications Prescriptions: Docusate Sodium [Colace] 100 mg PO BID PRN #30 capsule PRN Reason: Constipation Home Medications: RX: Albuterol Sulfate [Ventolin Hfa] 2 puff IH Q6H PRN 03/13/16 [History] RX: Aspirin Enteric Coated [Aspirin EC] 81 mg PO DAILY 03/13/16 [History] RX: Calcium Carbonate/Vitamin D3 [Oyster Shell Calcium-Vit D Tab] 500 mg PO BID 03/13/16 [History] RX: Citalopram [CeleXA] 20 mg PO DAILY 03/13/16 [History] RX: Digoxin [Lanoxin] 0.25 mg PO DAILY 03/13/16 [History] RX: Ferrous Sulfate 325 mg PO BIDWM 03/13/16 [History] RX: Umeclidinium [place] [Incruse Ellipta] 62.5 mcg IH DAILY 08/01/16 [History] RX: Omeprazole [PriLOSEC] 40 mg PO DAILY 10/12/16 [History] RX: Diltiazem HCl [Diltiazem ER] 240 mg PO DAILY 05/03/17 [History] RX: Furosemide [Lasix] 40 mg PO BID 05/03/17 [History] RX: Budesonide/Formoterol 160/4.5 [Symbicort 160/4.5] 2 puff IH BIDR 06/19/17 [History] RX: Acetaminophen [Tylenol] 650 mg PO Q6HR PRN #30 tablet 08/12/17 [Rx] RX: Cholecalciferol (D-3) [Vitamin D] 1,000 unit PO DAILY tablet 12/28/17 [Rx] RX: Gabapentin [Neurontin] 300 mg PO HS 02/27/18 [History] RX: Citalopram Hydrobromide [Citalopram HBr] 40 mg PO DAILY 04/03/18 [History] RX: Mv,Ca,Min/Iron Fum/FA/Lyco/Lut [Sentry Multivit & Mineral Cplt] 1 each PO DAILY 07/19/18 [History] Docusate Sodium [Colace] 100 mg PO BID PRN #30 capsule 07/21/18 [Rx] RX: Rivaroxaban [Xarelto] 20 mg PO DAILY #0 07/21/18 [Rx] Allergies/Adverse Reactions: Allergy/AdvReac Type Severity Reaction Status Date / Time lisinopril AdvReac Cough Verified 07/10/18 15:41 Date of admission: 07/19/18 12:30 Primary care physician: Edouard Cole MD Consults: 07/20/18 10:20 Consult to Test Equipment Mechanic [CONS] Stat Reason for SW Consult: Possible discharge today to [facility] 07/20/18 12:36 Consult to Occupational Therapy [CONS] Stat Comment: Evaluate, develop and implement POC Reason for Consult: Mobilization and discharge planning. Status post amputation Does patient have active BEDREST order?: No Is patient medically & hemodynamically stable?: Yes Patient assessed for mobility or mobilized this visit?: No Consult to Physical Therapy [CONS] Stat Comment: Evaluate, develop and implement POC Reason for Consult: Mobilization and discharge planning. Status post amputation Does patient have active BEDREST order?: Yes Is patient medically & hemodynamically stable?: No Patient assessed for mobility or mobilized this visit?: No 07/21/18 11:17 Consult to Respiratory Therapy [CONS] Routine Reason for Consult: Aggressive pulm toileting Call Completed: No Discharging clinician: Torres Moreno Anticipated date of discharge: 07/23/18 Labs on day of discharge: Labs from last 24 hours 07/21/18 07/21/18 07/20/18 03:22 03:22 22:06 WBC 14.4 H RBC 3.70 L Hgb 8.3 L Hct 28.0 L MCV 75.7 L MCH 22.4 L MCHC 29.6 L RDW 17.6 H Plt Count 364 MPV 9.5 Immature Gran % 0.4 Seg Neutrophils % 77.2 Lymphocytes % 14.0 Monocytes % 7.3 Eosinophils % 0.8 Basophils % 0.3 Neutrophils # 11.1 H Lymphocytes # 2.0 Monocytes # 1.1 Eosinophils # 0.1 Basophils # 0.1 Sodium 134 L Potassium 3.7 Chloride 104 Carbon Dioxide 25 BUN 12 Creatinine 0.63 Est GFR ( Amer) > 60 Est GFR (Non-Af Amer) > 60 BUN/Creatinine Ratio 19 Glucose 135 H Calculated Osmolality 280 Calcium 8.6 Nasal Screen MRSA (PCR) Negative - Patient Status Disposition: Transfer SNF Condition: Good Functional capacity at discharge: wheelchair bound Overall status at discharge: patient is not back to baseline - Discharge Instructions Instructions: Above the Knee Amputation (DC) Follow Up With: Torres Moreno MD [Partnered Physician] - 08/03/18 9:55 am Edouard Cole MD [Primary Care Provider] - Additional Instructions: General Surgical Discharge Instructions 1. Activity per PT/OT. 2. You may shower beginning today, but no tub baths, soaking, or swimming for 2 weeks. 3. You may resume driving when you are off narcotics and are cleared by PT/OT to do so 4. You may take the as needed Percocet. Take narcotics as directed. Do not take more narcotics then directed and do not share your narcotics with any other person. Do not drink alcohol while on narcotics. 5. Take stool softeners (Colace) or a water based laxative (Miralax) while taking narcotics. You may hold for loose stools. 6. Report any fevers greater than 100.5F, increase discomfort, drainage that looks like pus, increased redness or pain at the surgical site, or any vomiting. 7. Report any pain in the calves, shortness of breath, or rapid heartbeat. 8. Follow-up in the office as directed. 9.Continue antibiotics 10. Resume your Xarelto on Wound Care: Remove dressing. Wash with antibacterial soap. Cover with abd pad (if drainaing). Wrap with Kerlix. Wrap with Luis wraps or cover with stump sock. - Diet and Activity Activity: as per physical therapy, increase activity as tolerated Diet: advance to your usual diet <Torres Moreno - Last Filed: 07/24/18 07:16> Orders not resulted at time of discharge: Pending orders 07/19/18 06:57 US anesthesia pain block [US] Routine Date of Encounter: 07/24/18 - Discharge Diagnosis (1) Above knee amputation of left lower extremity Status: Acute General Surgery Exam Initial Vital Signs Temp Pulse Resp BP Pulse Ox 98.1 F 76 18 132/81 93 07/19/18 06:43 07/19/18 06:43 07/19/18 06:43 07/19/18 06:43 07/19/18 06:43 - Hospital Course Hospital course: Ms. Lewis is a 67 year old female - Time Spent with Patient Total time spent providing and/or coordinating discharge services: Date of admission: 07/19/18 12:30 Primary care physician: Edouard Cole MD Consults: 07/20/18 10:20 Consult to Test Equipment Mechanic [CONS] Stat Reason for SW Consult: Possible discharge today to [facility] 07/20/18 12:36 Consult to Occupational Therapy [CONS] Stat Comment: Evaluate, develop and implement POC Reason for Consult: Mobilization and discharge planning. Status post amputation Does patient have active BEDREST order?: No Is patient medically & hemodynamically stable?: Yes Patient assessed for mobility or mobilized this visit?: No Consult to Physical Therapy [CONS] Stat Comment: Evaluate, develop and implement POC Reason for Consult: Mobilization and discharge planning. Status post amputation Does patient have active BEDREST order?: Yes Is patient medically & hemodynamically stable?: No Patient assessed for mobility or mobilized this visit?: No 07/21/18 11:17 Consult to Respiratory Therapy [CONS] Routine Reason for Consult: Aggressive pulm toileting Call Completed: No - Impressions ITS Impressions Chest/Abdomen X-ray 07/22/18 09:57 IMPRESSION: Significant gaseous dilation of the colon, which was also present on CT imaging from 2016. D/ / Michael Oakes MD / Michael Oakes MD Interpreting Provider: Michael Oakes MD Abdomen/Pelvis CT 07/22/18 14:00 IMPRESSION: Dilation of cecum, ascending, and transverse colon with transition to relatively collapsed descending and rectosigmoid colon. No obstructing mass lesion is evident. This pattern is unchanged from July 2017. There is no small bowel dilation. D/ / Michael Oakes MD / Michael Oakes MD Interpreting Provider: Michael Oakes MD - Attending Attestation I have personally performed a face to face evaluation on this patient. I have reviewed and agree with the care plan. History and Exam by me shows: The patient is seen and evaluated on morning rounds. Pain control is adequate. She has progressed her diet normally. She is ready for discharge. Torres Moreno MD FACS
--- NOTE | 2018-07-21 11:26 | Physician Discharge Referral ---
ExtendedCare Referral Info Transfer To: [facility] manner Provider in Charge: Dr. Torres Moreno Provider in Charge after Transfer: Other (Qa Automation Engineer/pharmacy services director) Institutional Level of Care: Skilled - Diagnosis (1) Above knee amputation of left lower extremity Priority: Primary Status: Acute (2) GERD (gastroesophageal reflux disease) Priority: Secondary Status: Chronic (3) HTN (hypertension) Priority: Secondary Status: Chronic (4) Afib Priority: Secondary Status: Chronic (5) COPD (chronic obstructive pulmonary disease) Priority: Secondary Status: Acute Prognosis: Fair Aware of Diagnosis: Patient Aware of Prognosis: Patient - Transfer Medications Prescriptions: OxyCODONE/APAP 5/325 [Percocet 5/325 MG] 1 each PO Q6HR PRN 3 Days #12 tablet PRN Reason: Pain Docusate Sodium [Colace] 100 mg PO BID PRN #30 capsule PRN Reason: Constipation Home Medications: Albuterol Sulfate [Ventolin Hfa] 2 puff IH Q6H PRN 03/13/16 [History] Aspirin Enteric Coated [Aspirin EC] 81 mg PO DAILY 03/13/16 [History] Calcium Carbonate/Vitamin D3 [Oyster Shell Calcium-Vit D Tab] 500 mg PO BID 03/13/16 [History] Citalopram [CeleXA] 20 mg PO DAILY 03/13/16 [History] Digoxin [Lanoxin] 0.25 mg PO DAILY 03/13/16 [History] Ferrous Sulfate 325 mg PO BIDWM 03/13/16 [History] Umeclidinium [place] [Incruse Ellipta] 62.5 mcg IH DAILY 08/01/16 [History] Omeprazole [PriLOSEC] 40 mg PO DAILY 10/12/16 [History] Diltiazem HCl [Diltiazem ER] 240 mg PO DAILY 05/03/17 [History] Furosemide [Lasix] 40 mg PO BID 05/03/17 [History] Budesonide/Formoterol 160/4.5 [Symbicort 160/4.5] 2 puff IH BIDR 06/19/17 [History] Acetaminophen [Tylenol] 650 mg PO Q6HR PRN #30 tablet 08/12/17 [Rx] Cholecalciferol (D-3) [Vitamin D] 1,000 unit PO DAILY tablet 12/28/17 [Rx] Gabapentin [Neurontin] 300 mg PO HS 02/27/18 [History] Citalopram Hydrobromide [Citalopram HBr] 40 mg PO DAILY 04/03/18 [History] Mv,Ca,Min/Iron Fum/FA/Lyco/Lut [Sentry Multivit & Mineral Cplt] 1 each PO DAILY 07/19/18 [History] Docusate Sodium [Colace] 100 mg PO BID PRN #30 capsule 07/21/18 [Rx] OxyCODONE/APAP 5/325 [Percocet 5/325 MG] 1 each PO Q6HR PRN 3 Days #12 tablet 07/21/18 [Rx] Rivaroxaban [Xarelto] 20 mg PO DAILY #0 07/21/18 [Rx] Allergies/Adverse Reactions: Allergy/AdvReac Type Severity Reaction Status Date / Time lisinopril AdvReac Cough Verified 07/10/18 15:41 - Respiratory Orders Smoking Cessation: Smoking cessation has been advised. For more information, call the [place] Tobacco Quit Line at 6-014-FTIA-NOW. - Ancillary Orders May use pressure relief devices daily prn - Advance Directives Living Will: No Power of Dental Assistant Teacher for Health Care: No Code Status: Full Code - Mobility Orders Chair, Ambulate - Rehabiliation Orders Rehab Potential: Fair Rehab Orders: ROM Exercises, Evaluation for Physical Therapy, Evaluation for Occupational Therapy - Treatments Skin tear care topically daily PRN per policy, May check for fecal impaction rectally daily PRN, Fleet enema rectally every other day PRN cleansing purposes List/Other: General Surgical Discharge Instructions 1. Activity per PT/OT. 2. You may shower beginning today, but no tub baths, soaking, or swimming for 2 weeks. 3. You may resume driving when you are off narcotics and are cleared by PT/OT to do so 4. You may take the as needed Percocet. Take narcotics as directed. Do not take more narcotics then directed and do not share your narcotics with any other person. Do not drink alcohol while on narcotics. 5. Take stool softeners (Colace) or a water based laxative (Miralax) while taking narcotics. You may hold for loose stools. 6. Report any fevers greater than 100.5F, increase discomfort, drainage that looks like pus, increased redness or pain at the surgical site, or any vomiting. 7. Report any pain in the calves, shortness of breath, or rapid heartbeat. 8. Follow-up in the office as directed. 9.Continue antibiotics 10. Resume your Xarelto on Wound Care: Remove dressing. Wash with antibacterial soap. Cover with abd pad (if drainaing). Wrap with Kerlix. Wrap with Luis wraps or cover with stump sock. - Diet Orders Regular CERTIFICATION: I certify that the transfer of the above named patient to an Extended Care Facility is necessary for the continuing treatment of the diagnosis listed. The above information is true and accurate reflection of patient's current condition. Confidential - Redisclosure prohibited without a patient's written consent.
[2018-07-21] MEDS: Budesonide/Formoterol 160/4.5 1 PUFF INH IH SCH ×2 (15:05→21:09)
[2018-07-21] MEDS: *HR* OxyCODONE/APAP 5/325 TABLET PO PRN (20:34)
[2018-07-21] MEDS: Gabapentin 300 MG CAPSULE PO SCH (20:34)
[2018-07-22] MEDS: cefOXitin 2,000 MG in Water for inj. (sterile) 20 ML 20 ML IVP SCH ×3 (00:11→16:39)
[2018-07-22] MEDS: *HR* Heparin 5,000 UNIT/ML VIAL SQ SCH ×2 (05:42→17:42)
[2018-07-22] MEDS: *HR* OxyCODONE/APAP 5/325 TABLET PO PRN ×3 (05:53→20:31)
[2018-07-22] MEDS: Budesonide/Formoterol 160/4.5 1 PUFF INH IH SCH ×2 (07:54→19:32)
[2018-07-22] MEDS: Diltiazem CD (24hr) 240 MG CAPSULE PO SCH (08:25)
[2018-07-22] MEDS: Aspirin Enteric Coated 81 MG Tablet PO SCH (08:25)
[2018-07-22] MEDS: Furosemide 40 MG TABLET PO SCH ×2 (08:25→16:49)
[2018-07-22] MEDS: *HR* Digoxin 0.25 MG TABLET PO SCH (08:26)
[2018-07-22] MEDS ORDERED: Ondansetron 4 MG/2 ML VIAL IVP PRN (09:59)
[2018-07-22 10:15] LABS: Basophils % 0.3 %; Eosinophils # 0.4 K/mcL (0.0-0.6); Eosinophils % 3.4 %; Hematocrit 32.8 % (35.3-44.9); Hemoglobin 9.6 g/dL (11.5-15.4); Immature Granulocytes % 0.6 % (0-4); Lymphocytes # 1.8 K/mcL (0.6-4.6); Lymphocytes % 16.1 %; Mean Corpuscular HGB Conc 29.3 g/dL (31.6-35.5); Mean Corpuscular Hemoglobin 22.3 pg (28.0-33.3); Mean Corpuscular Volume 76.1 fL (83.0-100.0); Mean Platelet Volume 8.9 fL (9.4-12.4); Monocytes # 0.8 K/mcL (0.0-1.3); Monocytes % 7.3 %; Platelet Count 376 K/mcL (140-400); Red Blood Count 4.31 M/mcL (3.82-4.97); Red Cell Distribution Width 17.3 % (11.5-14.5); Segmented Neutrophils % 72.3 %
[2018-07-22 10:33] LABS: BUN/Creatinine Ratio 17 (6-26); Blood Urea Nitrogen 12 mg/dL (8-23); Calcium 9.2 mg/dL (8.6-10.3); Carbon Dioxide 31 mEq/L (23-29); Chloride 102 mEq/L (98-107); Glucose 138 mg/dL (70-105); Osmolality,Calculated 288 (280-300); Potassium 3.6 mEq/L (3.5-5.1); Sodium 138 mEq/L (136-145); eGFR For Non-African Americans > 60 (> 60)
--- NOTE | 2018-07-22 12:58 | General Surgery Progress Note ---
Date of Encounter: 07/22/18 Time of Encounter: 12:56 - Assessment and Plan (1) Ileus Current Visit: No Status: Acute Urine the patient's distention will go ahead and order an abdominal x-ray. Will back off her diet to clears. Will hold on discharge to a nursing facility until her GI issue has resolved or been further evaluated. To consider CT scan based upon the abdominal x-ray findings. (2) Above knee amputation of left lower extremity Current Visit: Yes Status: Acute Continue with dressing changes. Patient's discharge status pending evaluation of her abdominal distention. Dr. Moreno to return on 07/23/2018. Subjective Patient reports: other (Patient admits to some abdominal distention with nausea. Denies vomiting. States no bowel movement but has flatus.) Objective Vital Signs - Last 8 Hours Temp Pulse Resp BP Pulse Ox 07/22/18 10:27 98.2 F 81 19 154/89 98 07/22/18 07:56 18 95 07/22/18 07:15 98.7 F 89 14 133/62 92 Intake and Output 07/21/18 07/22/18 07/22/18 23:59 07:59 15:59 Intake Total 380 / 380 20 / 20 260 / 260 Output Total 250 / 250 0 / 0 1300 / 1300 Balance 130 / 130 20 / 20 -1040 / -1040 Intake: IV Fluids 20 / 20 20 / 20 20 / 20 Mefoxin 2,000 MG In Water for 20 / 20 20 / 20 20 / 20 inj. (sterile) 20 ML @ 300 mls/ hr IVP Q8HR [facility] Rx#:[id number] Oral 360 / 360 0 / 0 240 / 240 Output: Urine 250 / 250 0 / 0 500 / 500 Urine/Stool Mix 800 / 800 Other: Meal Dinner Breakfast Percent of Meal Consumed 25% 20% Stool Size Moderate Stool Consistency loose loose liquid liquid Stool Color Black Black # Voids 1 # Bowel Movements 1 1 Weight 114 kg Patient Weight 07/22/18 23:59 Weight 114 kg - General physical appearance no distress - Abdomen Abdomen: Present: bowel sounds present (Scant bowel sounds), soft, non tender, distended - Additional Exam Left AKA dressing intact. Clean dry and intact. - Labs 07/22/18 10:04 07/22/18 10:04 Diabetes panel 07/22/18 Range/Units 10:04 Sodium 138 (136-145) mEq/L Potassium 3.6 (3.5-5.1) mEq/L Chloride 102 (98-107) mEq/L Carbon Dioxide 31 H (23-29) mEq/L BUN 12 (8-23) mg/dL Creatinine 0.69 (0.60-1.20) mg/dL Glucose 138 H (70-105) mg/dL Calcium 9.2 (8.6-10.3) mg/dL Calcium panel 07/22/18 Range/Units 10:04 Calcium 9.2 (8.6-10.3) mg/dL Pituitary panel 07/22/18 Range/Units 10:04 Sodium 138 (136-145) mEq/L Potassium 3.6 (3.5-5.1) mEq/L Chloride 102 (98-107) mEq/L Carbon Dioxide 31 H (23-29) mEq/L BUN 12 (8-23) mg/dL Creatinine 0.69 (0.60-1.20) mg/dL Glucose 138 H (70-105) mg/dL Calcium 9.2 (8.6-10.3) mg/dL Adrenal panel 07/22/18 Range/Units 10:04 Sodium 138 (136-145) mEq/L Potassium 3.6 (3.5-5.1) mEq/L Chloride 102 (98-107) mEq/L Carbon Dioxide 31 H (23-29) mEq/L BUN 12 (8-23) mg/dL Creatinine 0.69 (0.60-1.20) mg/dL Glucose 138 H (70-105) mg/dL Calcium 9.2 (8.6-10.3) mg/dL Consult Discharge Plan - Plan Instructions: Above the Knee Amputation (DC) Additional Instructions: General Surgical Discharge Instructions 1. Activity per PT/OT. 2. You may shower beginning today, but no tub baths, soaking, or swimming for 2 weeks. 3. You may resume driving when you are off narcotics and are cleared by PT/OT to do so 4. You may take the as needed Percocet. Take narcotics as directed. Do not take more narcotics then directed and do not share your narcotics with any other person. Do not drink alcohol while on narcotics. 5. Take stool softeners (Colace) or a water based laxative (Miralax) while ta laith narcotics. You may hold for loose stools. 6. Report any fevers greater than 100.5F, increase discomfort, drainage that looks like pus, increased redness or pain at the surgical site, or any vomiting. 7. Report any pain in the calves, shortness of breath, or rapid heartbeat. 8. Follow-up in the office as directed. 9.Continue antibiotics 10. Resume your Xarelto on Wound Care: Remove dressing. Wash with antibacterial soap. Cover with abd pad (if drainaing). Wrap with Kerlix. Wrap with Luis wraps or cover with stump sock. Referrals: Torres Moreno MD [Partnered Physician] - 08/03/18 9:55 am Edouard Cole MD [Primary Care Provider] - Prescriptions: OxyCODONE/APAP 5/325 [Percocet 5/325 MG] 1 each PO Q6HR PRN 3 Days #12 tablet PRN Reason: Pain Docusate Sodium [Colace] 100 mg PO BID PRN #30 capsule PRN Reason: Constipation
[2018-07-22] MEDS: Gabapentin 300 MG CAPSULE PO SCH (20:31)
[2018-07-23] MEDS: cefOXitin 2,000 MG in Water for inj. (sterile) 20 ML 20 ML IVP SCH ×3 (00:13→16:28)
[2018-07-23] MEDS: *HR* Heparin 5,000 UNIT/ML VIAL SQ SCH ×2 (05:37→17:34)
[2018-07-23] MEDS: Furosemide 40 MG TABLET PO SCH ×2 (07:36→16:28)
[2018-07-23] MEDS: Aspirin Enteric Coated 81 MG Tablet PO SCH (07:36)
[2018-07-23] MEDS: Diltiazem CD (24hr) 240 MG CAPSULE PO SCH (07:36)
[2018-07-23] MEDS: *HR* Digoxin 0.25 MG TABLET PO SCH (07:37)
[2018-07-23] MEDS: *HR* OxyCODONE/APAP 5/325 TABLET PO PRN ×3 (07:41→18:46)
[2018-07-23] MEDS: Budesonide/Formoterol 160/4.5 1 PUFF INH IH SCH (10:39)
[2018-07-23 15:48] VITALS: BP 125/77
[2018-07-23] MEDS: OXYCODONE Oral CONC 10 MG/0.5 ML ORAL.SYG SL PRN (16:27)
--- NOTE | 2018-07-24 09:25 | Orthopedic Operative Note ---
Date of procedure: 07/24/18 Pre-op diagnosis: Infected left total knee Post-op diagnosis: same Procedure: Procedure: Removal of infected femoral component total knee Estimated blood loss: 200 mL Procedure: Patient was brought to the operating room and underwent the initial procedure for exposure for the above-knee amputation by Dr. Moreno. I was brought into the room after he reached a point in the procedure with he felt comfortable for many to approach the knee and remove the femoral component. A anterior incision was made centered over the patella extending from distally the transverse incision made by Dr. Moreno. The incision made through skin and subcutaneous tissue, patient noted to have infected bursal tissue. Incision taken down the extensor mechanism. A medial parapatellar tendon approach was performed. Patient noted to have fluid consistent with infection. The femoral component was exposed and removed without incident. At this point time my portion of the procedure was completed, Dr. Moreno continued with his portion. Anesthesia: GETA Surgeon: Isai Castanon Was there an biology laboratory assistant present: No Estimated blood loss (cc): 200 Condition: stable Disposition: no change (Patient still in operating room for completion above- knee amputation by Dr. Moreno)
== END 2018-07-23 19:00 | DRG 464 ==
LOC: SAMDAY 06:21 → 3ANU 12:30
PROVIDERS: ADMIT Surgery; ATTEND Surgery

== ENCOUNTER 2018-10-13 12:52 | Inpatient (IN) ==
[2018-10-13] MEDS ORDERED: 0.9 % Sodium Chloride 1,000 ML IVC ONE ×2 (12:57→16:24)
[2018-10-13] MEDS ORDERED: Isovue-370 500 ML BOTTLE IVP ONE (13:28)
[2018-10-13] MEDS ORDERED: Piperacillin/Tazobactam 3.375 GM in 0.9 % Sodium Chloride Mini Bag 100 ML IVPB ONE (13:29)
[2018-10-13] MEDS ORDERED: Vancomycin 1,750 MG in 0.9 % Sodium Chloride 250 ML IVPB ONE (13:29)
[2018-10-13 13:52] LABS: Basophils % 0.2 %; Hematocrit 42.3 % (35.3-44.9); Hemoglobin 12.9 g/dL (11.5-15.4); Immature Granulocytes % 1.9 % (0-4); Lymphocytes # 0.9 K/mcL (0.6-4.6); Mean Corpuscular HGB Conc 30.5 g/dL (31.6-35.5); Mean Corpuscular Hemoglobin 24.1 pg (28.0-33.3); Mean Corpuscular Volume 79.1 fL (83.0-100.0); Mean Platelet Volume 9.7 fL (9.4-12.4); Monocytes # 0.7 K/mcL (0.0-1.3); Monocytes % 3.1 %; Platelet Count 226 K/mcL (140-400); Red Blood Count 5.35 M/mcL (3.82-4.97); Red Cell Distribution Width 20.5 % (11.5-14.5); Segmented Neutrophils % 90.8 %
[2018-10-13 14:01] LABS: INR 1.3; Prothrombin Time 14.4 Seconds (9.4-12.1)
[2018-10-13 14:03] LABS: Activated Partial Thrombo Time 33.5 Seconds (26.0-36.0)
[2018-10-13 14:07] LABS: Troponin I 0.03 ng/mL (< 0.04)
[2018-10-13 14:09] LABS: Alanine Aminotransferase 12 Units/L (7-52); Albumin 3.9 g/dL (3.5-5.7); Albumin/Globulin Ratio 1.1 (1.1-2.2); Alkaline Phosphatase 98 Units/L (34-104); Aspartate Amino Transferase 14 Units/L (13-39); BUN/Creatinine Ratio 23 (6-26); Bilirubin,Direct 0.1 mg/dL (0.0-0.2); Bilirubin,Indirect 0.3 mg/dL (0.0-1.2); Bilirubin,Total 0.4 mg/dL (0.3-1.0); Blood Urea Nitrogen 16 mg/dL (8-23); Calcium 9.7 mg/dL (8.6-10.3); Carbon Dioxide 25 mEq/L (23-29); Chloride 99 mEq/L (98-107); Globulin 3.7 g/dL (2.4-3.5); Glucose 122 mg/dL (70-105); Osmolality,Calculated 280 (280-300); Phosphorous 2.1 mg/dL (2.7-4.5); Potassium 3.4 mEq/L (3.5-5.1); Sodium 134 mEq/L (136-145); Total Protein 7.6 g/dL (6.4-8.9); eGFR For Non-African Americans > 60 (> 60)
--- NOTE | 2018-10-13 14:16 | Emergency Department Note ---
Disposition Clinical Impression: Cellulitis of right lower extremity Sepsis Qualifiers: Sepsis type: sepsis due to unspecified organism Qualified Code(s): A41.9 - Sepsis, unspecified organism Disposition: Admitted As Inpatient Condition: Fair Referrals: Edouard Cole MD [Primary Care Provider] - Forms: ED Satisfaction Letter Extremity Problem HPI - General Chief complaint: ED Extremity Problem,Nontraumatic Stated complaint: Leg pain Time Seen by Provider: 10/13/18 12:57 Source: patient, EMS Mode of arrival: EMS Limitations: physical limitation Nursing Notes Reviewed: Yes Vital Signs Reviewed: Yes - History of Present Illness HPI Narrative: 68-year-old female presents to the ER via EMS due to right lower shimmy swelling and redness. States that symptoms started yesterday. Noticed it was red. She has not been on antibiotics recently. Denies any other symptoms. 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 No history of DVT. No other complaints. Pt Subjective Complaint: extremity swelling Onset (ago): day(s) Pain Scale: 4 Improves with: nothing Worsens with: nothing Associated symptoms: Reports: denies other symptoms - Related Data Home Medications Medication Instructions Recorded Confirmed Albuterol Sulfate [Ventolin Hfa] 2 puff IH Q6H PRN 03/13/16 08/29/18 Aspirin Enteric Coated [Aspirin EC] 81 mg PO DAILY 03/13/16 08/29/18 Calcium Carbonate/Vitamin D3 500 mg PO BID 03/13/16 08/29/18 [Oyster Shell Calcium-Vit D Tab] Citalopram [CeleXA] 20 mg PO DAILY 03/13/16 08/29/18 Digoxin [Lanoxin] 0.25 mg PO DAILY 03/13/16 08/29/18 Ferrous Sulfate 325 mg PO BIDWM 03/13/16 08/29/18 Umeclidinium [place] [Incruse 62.5 mcg IH DAILY 08/01/16 08/29/18 Ellipta] Omeprazole [PriLOSEC] 40 mg PO DAILY 10/12/16 08/29/18 Diltiazem HCl [Diltiazem ER] 240 mg PO DAILY 05/03/17 08/29/18 Furosemide [Lasix] 40 mg PO BID 05/03/17 08/29/18 Budesonide/Formoterol 160/4.5 2 puff IH BIDR 06/19/17 08/29/18 [Symbicort 160/4.5] Gabapentin [Neurontin] 600 mg PO TID 02/27/18 08/29/18 Citalopram Hydrobromide 40 mg PO DAILY 04/03/18 08/29/18 [Citalopram HBr] Mv,Ca,Min/Iron Fum/FA/Lyco/Lut 1 each PO DAILY 07/19/18 08/29/18 [Sentry Multivit & Mineral Cplt] Acetaminophen w/Cod 300-30 mg 1 each PO BID PRN 08/29/18 08/29/18 [Tylenol w/Codeine #3] Previous Rx's Medication Instructions Recorded Acetaminophen [Tylenol] 650 mg PO Q6HR PRN #30 tablet 08/12/17 Cholecalciferol (D-3) [Vitamin D] 1,000 unit PO DAILY tablet 12/28/17 Docusate Sodium [Colace] 100 mg PO BID PRN #30 capsule 07/21/18 Rivaroxaban [Xarelto] 20 mg PO DAILY #0 07/21/18 Allergies Allergy/AdvReac Type Severity Reaction Status Date / Time lisinopril AdvReac Cough Verified 10/13/18 12:58 All systems ED: reviewed and negative except as stated. Constitutional: Denies: fever, chills Gastrointestinal: Denies: abdominal pain, nausea, vomiting, diarrhea Integumentary: Reports: lesions Past Medical History - Past Medical History Attestation: Yes The following information was validated with the patient. Source: patient Medical history: Reports: atrial fibrillation, CHF, COPD, GERD, hyperlipidemia, hypertension, other Surgical history: Reports: knee replacement, other Psychiatric history: Reports: depression LANGUAGE SPECIALIST history: Reports: no LANGUAGE SPECIALIST history - Social History Smoking Status: Current every day smoker Smokeless Tobacco Status: Yes Alcohol use: Reports: none Drug use: Reports: none Physical Exam - General Limitations: physical limitation General appearance: alert, in no apparent distress - Head Head exam: atraumatic, normocephalic, normal inspection - Eye Eye exam: Present: normal appearance - ENT ENT exam: normal exam - Neck Neck exam: Present: normal inspection - Chest Chest inspection: Present: normal inspection, symmetric chest wall rise - Respiratory Respiratory exam: Present: normal lung sounds bilaterally - Cardiovascular Cardiovascular exam: Present: normal rhythm, tachycardia, normal heart sounds - Abdominal Exam Abdominal exam: Present: soft, Non-Tender. Absent: tenderness, distention, rigidity - Extremities Exam Extremities exam: Present: normal inspection, full ROM - Expanded Upper Extremity Exam Shoulder exam: Present: normal inspection, full ROM Arm exam: Present: normal inspection, full ROM Elbow exam: Present: normal inspection, full ROM Forearm/Wrist exam: Present: normal inspection, full ROM Hand exam: Present: normal inspection, full ROM - Expanded Lower Extremity Exam Hip/Pelvis exam: Present: normal inspection, full ROM Upper leg exam: Present: normal inspection, full ROM, other (Left AKA) Lower leg exam: Present: other (There is soft tissue swelling to the right lower extremity as well as diffuse erythema from the knee to the ankle. This erythema also extends on the medial aspect of the right thigh.) Neurovascular/Tendon exam: Absent: motor deficit, sensory deficit Course Course Narrative: Patient seen and examined. Vital signs reviewed. Plan for CT imaging of her leg, labs, broad-spectrum antibiotics and admission. Vital Signs Temperature 99.3 F 10/13/18 12:54 Pulse Rate 119 10/13/18 12:54 Respiratory Rate 22 10/13/18 12:54 Blood Pressure 136/104 10/13/18 12:54 O2 Sat by Pulse Oximetry 96 10/13/18 12:54 Temperature 99.3 F 10/13/18 12:54 Pulse Rate 116 10/13/18 14:49 Respiratory Rate 19 10/13/18 14:49 Blood Pressure 134/81 10/13/18 14:49 O2 Sat by Pulse Oximetry 98 10/13/18 14:49 Extremity Problem, Nontraumati - MDM Narrative Medical decision making narrative: 68-year-old female presenting with right lower shimmy cellulitis. Noted to have a leukocytosis and tachycardia here as well as CT imaging demonstrating cellulitis without evidence of necrotizing fasciitis. Plan to treat the patient with broad-spectrum antibiotics and admission to the hospitalist service. - Lab Data Lab results reviewed: Yes I reviewed the patient's lab results. Result diagrams: 10/13/18 13:32 10/13/18 13:32 Lab Results 10/13/18 10/13/18 10/13/18 Range/Units 13:25 13:32 13:32 WBC 22.1 H (4.3-11.1) K/mcL RBC 5.35 H (3.82-4.97) M/mcL Hgb 12.9 (11.5-15.4) g/dL Hct 42.3 (35.3-44.9) % MCV 79.1 L (83.0-100.0) fL MCH 24.1 L (28.0-33.3) pg MCHC 30.5 L (31.6-35.5) g/dL RDW 20.5 H (11.5-14.5) % Plt Count 226 (140-400) K/mcL MPV 9.7 (9.4-12.4) fL Immature Gran % 1.9 (0-4) % Seg Neutrophils % 90.8 % Lymphocytes % 4.0 % Monocytes % 3.1 % Eosinophils % 0.0 % Basophils % 0.2 % Neutrophils # 20.0 H (1.6-8.9) K/mcL Lymphocytes # 0.9 (0.6-4.6) K/mcL Monocytes # 0.7 (0.0-1.3) K/mcL Eosinophils # 0.0 (0.0-0.6) K/mcL Basophils # 0.0 (0.0-0.2) K/mcL PT 14.4 H (9.4-12.1) Seconds INR 1.3 APTT 33.5 (26.0-36.0) Seconds Sodium (136-145) mEq/L Potassium (3.5-5.1) mEq/L Chloride (98-107) mEq/L Carbon Dioxide (23-29) mEq/L BUN (8-23) mg/dL Creatinine (0.60-1.20) mg/dL Est GFR ( Amer) (> 60) Est GFR (Non-Af Amer) (> 60) BUN/Creatinine Ratio (6-26) Glucose (70-105) mg/dL Calculated Osmolality (280-300) Lactic Acid 1.4 (0.5-2.2) mmol/L Calcium (8.6-10.3) mg/dL Phosphorus (2.7-4.5) mg/dL Magnesium (1.6-2.6) mg/dL Total Bilirubin (0.3-1.0) mg/dL Direct Bilirubin (0.0-0.2) mg/dL Indirect Bilirubin (0.0-1.2) mg/dL AST (13-39) Units/L ALT (7-52) Units/L Alkaline Phosphatase (34-104) Units/L Troponin I (< 0.04) ng/mL B-Natriuretic Peptide (Less than 100) pg/mL Serum Total Protein (6.4-8.9) g/dL Albumin (3.5-5.7) g/dL Globulin (2.4-3.5) g/dL Albumin/Globulin Ratio (1.1-2.2) Urine Color (Yellow) Urine Clarity (Clear) Urine pH (5.0-8.0) pH Units Ur Specific [place] (1.010-1.025) Urine Protein (Neg-Trace) mg/dL Urine Glucose (UA) (Normal) mg/dL Urine Ketones (Negative) mg/dL Urine Blood (Negative) Urine Nitrite (Negative) Urine Bilirubin (Negative) Urine Urobilinogen (Normal) mg/dL Ur Leukocyte Esterase (Negative) Urine Microscopic RBC (0-3) per hpf Urine Microscopic WBC (0-3) per hpf Ur Squamous Epith Cells (None-Few) per lpf Urine Bacteria (None-Few) per hpf Hyaline Casts (None-Few) per lpf Ur Culture Indicated? (NO) 10/13/18 10/13/18 10/13/18 Range/Units 13:32 13:32 14:14 WBC (4.3-11.1) K/mcL RBC (3.82-4.97) M/mcL Hgb (11.5-15.4) g/dL Hct (35.3-44.9) % MCV (83.0-100.0) fL MCH (28.0-33.3) pg MCHC (31.6-35.5) g/dL RDW (11.5-14.5) % Plt Count (140-400) K/mcL MPV (9.4-12.4) fL Immature Gran % (0-4) % Seg Neutrophils % % Lymphocytes % % Monocytes % % Eosinophils % % Basophils % % Neutrophils # (1.6-8.9) K/mcL Lymphocytes # (0.6-4.6) K/mcL Monocytes # (0.0-1.3) K/mcL Eosinophils # (0.0-0.6) K/mcL Basophils # (0.0-0.2) K/mcL PT (9.4-12.1) Seconds INR APTT (26.0-36.0) Seconds Sodium 134 L (136-145) mEq/L Potassium 3.4 L (3.5-5.1) mEq/L Chloride 99 (98-107) mEq/L Carbon Dioxide 25 (23-29) mEq/L BUN 16 (8-23) mg/dL Creatinine 0.70 (0.60-1.20) mg/dL Est GFR ( Amer) > 60 (> 60) Est GFR (Non-Af Amer) > 60 (> 60) BUN/Creatinine Ratio 23 (6-26) Glucose 122 H (70-105) mg/dL Calculated Osmolality 280 (280-300) Lactic Acid (0.5-2.2) mmol/L Calcium 9.7 (8.6-10.3) mg/dL Phosphorus 2.1 L (2.7-4.5) mg/dL Magnesium 2.0 (1.6-2.6) mg/dL Total Bilirubin 0.4 (0.3-1.0) mg/dL Direct Bilirubin 0.1 (0.0-0.2) mg/dL Indirect Bilirubin 0.3 (0.0-1.2) mg/dL AST 14 (13-39) Units/L ALT 12 (7-52) Units/L Alkaline Phosphatase 98 (34-104) Units/L Troponin I 0.03 (< 0.04) ng/mL B-Natriuretic Peptide 347 H (Less than 100) pg/mL Serum Total Protein 7.6 (6.4-8.9) g/dL Albumin 3.9 (3.5-5.7) g/dL Globulin 3.7 H (2.4-3.5) g/dL Albumin/Globulin Ratio 1.1 (1.1-2.2) Urine Color Dark Yellow (Yellow) Urine Clarity Clear (Clear) Urine pH 5.5 (5.0-8.0) pH Units Ur Specific [place] 1.022 (1.010-1.025) Urine Protein 100 H (Neg-Trace) mg/dL Urine Glucose (UA) Normal (Normal) mg/dL Urine Ketones 15 H (Negative) mg/dL Urine Blood Moderate H (Negative) Urine Nitrite Negative (Negative) Urine Bilirubin Small H (Negative) Urine Urobilinogen Normal (Normal) mg/dL Ur Leukocyte Esterase Negative (Negative) Urine Microscopic RBC 5-15 H (0-3) per hpf Urine Microscopic WBC 0-3 (0-3) per hpf Ur Squamous Epith Cells Many H (None-Few) per lpf Urine Bacteria None Seen (None-Few) per hpf Hyaline Casts None Seen (None-Few) per lpf Ur Culture Indicated? NO (NO) - Radiology Data Radiology results reviewed: Yes I reviewed the patient's radiology results. Chest X-Ray 10/13/18 12:58 IMPRESSION: 1. No convincing finding in the chest to account for patient's sepsis. Bandlike density in the left base is probably atelectasis or scarring. 2. Stable mild enlargement of the cardiac silhouette. D/ / Nba Georges MD / Nba Georges MD Interpreting Provider: Nba Georges MD Lower Extremity CT 10/13/18 13:28 IMPRESSION: 1. Nonspecific soft tissue swelling of the right lower extremity, this is most prominent involving the dorsal aspect of the foot and ankle. No well-defined abscess identified. There is no evidence of necrotizing fasciitis. 2. No acute osseous abnormality. 3. Intact right knee arthroplasty. 4. Moderate calcaneal enthesopathy at the insertion of the Achilles tendon and plantar aponeurosis. 5. Mild degenerative/neuropathic changes are present involving the midfoot. D/ / 10/13/2018 15:45:01 Sanket Lange MD / [facility] Interpreting Provider: Sanket Lange MD Critical Care Time Critical Care Time: Yes Total Critical Care Time: 35 Attestation: Critical care time managing patient's sepsis 35 minutes. S.B.A.R. - S.B.A.[facility]ac[facility] Situation: Demographics, MOA Background: Presenting Complaint, Relevant PMH, Meds, & Allergies Assessment: Course and respsone to treatment, Exam Concerns, Patient/Family Expectation, Pertinant Lab Results Recommendation: Barrier(s) to disposition, Recommendation based on pending st udies, treatments, or consults Lewis Report Given to: Dr. Mara Saucedo Repor Time: 16:13 Attestation Statement - Attestation Attestation: Patient was seen with resident physician. I reviewed the history, physical, assessment and plan, and agree with the findings. I also personally evaluated this patient and had [id number] time with this patient. 68-year-old female presents emergency department with rapidly increasing redness swelling and pain in the right lower extremity. 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 Patient says that over the last 24 hours progres sively gotten worse which ultimately prompted her visit. She is also had some diaphoresis associated with this. She is been septic in the past for same problem. Denies nausea vomiting or diarrhea. Patient states that she is just worried about her leg. Review of systems as above remainder negative. Physical exam vital signs are stable. ENT is unremarkable. Heart regular rhythm and rate. Lungs clear. Abdomen soft nontender. Extremities scattered above the knee amputation on the left lower extremity. And she has significant swelling and erythema with warmth and cellulitic-appearing changes in the right lower extremity especially medially from just above the knee down. Neurologically she is alert moves all extremities appropriately. Skin cyanotic rashes noted. ED course. Patient will be started on sepsis protocol. We will do dual antibiotic therapy. We will get a CT scan to make sure she does not have an abscess or gangrenous process. CT scan did not show any gas or abscess. Hemodynamically the patient remained stable throughout her course in the emergency department. We discussed the hospitalists who agreed to accept the patient. She will be admitted to the hospital service for additional evaluation and treatment. I agree with resident physician assessment and plan. Critical care time 35 minutes.
[2018-10-13 14:25] LABS: Bilirubin,Urine Small (Negative); Blood,Urine Moderate (Negative); Clarity,Urine Clear (Clear); Color,Urine Dark Yellow (Yellow); Glucose,Urine (UA) Normal (Normal); Ketones,Urine 15 mg/dL (Negative); Leukocyte Esterase,Urine Negative (Negative); Nitrite,Urine Negative (Negative); PH,Urine 5.5 pH Units (5.0-8.0); Protein,Urine 100 mg/dL (Neg-Trace); Specific Gravity,Urine 1.022 (1.010-1.025); Urobilinogen,Urine Normal (Normal)
[2018-10-13 14:55] LABS: Bacteria,Urine None Seen per hpf (None-Few); Hyaline Casts,Urine None Seen per lpf (None-Few); Squamous Epithelial Cell,Urine Many per lpf (None-Few); WBC,Urine 0-3 per hpf (0-3)
[2018-10-13] MEDS ORDERED: Acetaminophen 325 MG TABLET PO PRN (16:25)
[2018-10-13] MEDS ORDERED: Naloxone 0.4 MG/ML INJ IVP PRN (16:25)
--- NOTE | 2018-10-13 16:36 | Internal Med History&Physical ---
<Yamila Tabares - Last Filed: 10/13/18 17:48> Date of Encounter: 10/13/18 Internal Medicine - H&P: HPI History of present illness: Ms. Lewis is a 68 year old female Internal Medicine - H&P: Meds Albuterol Sulfate [Ventolin Hfa] 2 puff IH Q6H PRN 03/13/16 [History] Aspirin Enteric Coated [Aspirin EC] 81 mg PO DAILY 03/13/16 [History] Calcium Carbonate/Vitamin D3 [Oyster Shell Calcium-Vit D Tab] 500 mg PO BID 03/13/16 [History] Citalopram [CeleXA] 20 mg PO DAILY 03/13/16 [History] Digoxin [Lanoxin] 0.25 mg PO DAILY 03/13/16 [History] Ferrous Sulfate 325 mg PO BIDWM 03/13/16 [History] Umeclidinium [place] [Incruse Ellipta] 62.5 mcg IH DAILY 08/01/16 [History] Omeprazole [PriLOSEC] 40 mg PO DAILY 10/12/16 [History] Diltiazem HCl [Diltiazem ER] 240 mg PO DAILY 05/03/17 [History] Furosemide [Lasix] 40 mg PO BID 05/03/17 [History] Budesonide/Formoterol 160/4.5 [Symbicort 160/4.5] 2 puff IH BIDR 06/19/17 [History] Acetaminophen [Tylenol] 650 mg PO Q6HR PRN #30 tablet 08/12/17 [Rx] Cholecalciferol (D-3) [Vitamin D] 1,000 unit PO DAILY tablet 12/28/17 [Rx] Gabapentin [Neurontin] 600 mg PO TID 02/27/18 [History] Citalopram Hydrobromide [Citalopram HBr] 40 mg PO DAILY 04/03/18 [History] Mv,Ca,Min/Iron Fum/FA/Lyco/Lut [Sentry Multivit & Mineral Cplt] 1 each PO DAILY 07/19/18 [History] Docusate Sodium [Colace] 100 mg PO BID PRN #30 capsule 07/21/18 [Rx] Rivaroxaban [Xarelto] 20 mg PO DAILY #0 07/21/18 [Rx] Acetaminophen w/Cod 300-30 mg [Tylenol w/Codeine #3] 1 each PO BID PRN 08/29/18 [History] Allergy/AdvReac Type Severity Reaction Status Date / Time lisinopril AdvReac Cough Verified 10/13/18 12:58 All Systems PM: A 10-system review of systems was performed and is negative for pertinent findings except as documented above in the HPI. - Constitutional Vitals: Temp Pulse Resp BP Pulse Ox 99.3 F 116 19 134/81 98 10/13/18 12:54 10/13/18 14:49 10/13/18 14:49 10/13/18 14:49 10/13/18 14:49 Internal Med - H&P Results - Labs CBC & Chem 7: 10/13/18 13:32 10/13/18 13:32 Labs: Short CBC 10/13/18 Range/Units 13:32 WBC 22.1 H (4.3-11.1) K/mcL Hgb 12.9 (11.5-15.4) g/dL Hct 42.3 (35.3-44.9) % Plt Count 226 (140-400) K/mcL Neutrophils # 20.0 H (1.6-8.9) K/mcL BMP 10/13/18 13:32 Sodium 134 L Potassium 3.4 L Chloride 99 Carbon Dioxide 25 BUN 16 Creatinine 0.70 Glucose 122 H Calcium 9.7 Cardiac Enzymes 10/13/18 Range/Units 13:32 Troponin I 0.03 (< 0.04) ng/mL Liver Function 10/13/18 Range/Units 13:32 Total Bilirubin 0.4 (0.3-1.0) mg/dL Direct Bilirubin 0.1 (0.0-0.2) mg/dL AST 14 (13-39) Units/L ALT 12 (7-52) Units/L Alkaline Phosphatase 98 (34-104) Units/L Albumin 3.9 (3.5-5.7) g/dL Urine 10/13/18 Range/Units 14:14 Urine Color Dark Yellow (Yellow) Urine Clarity Clear (Clear) Urine pH 5.5 (5.0-8.0) pH Units Ur Specific Ayden 1.022 (1.010-1.025) Urine Protein 100 H (Neg-Trace) mg/dL Urine Glucose (UA) Normal (Normal) mg/dL - Impressions ITS Impressions Chest X-Ray 10/13/18 12:58 IMPRESSION: 1. No convincing finding in the chest to account for patient's sepsis. Bandlike density in the left base is probably atelectasis or scarring. 2. Stable mild enlargement of the cardiac silhouette. D/ / Nba Georges MD / Nba Georges MD Interpreting Provider: Nba Georges MD Lower Extremity CT 10/13/18 13:28 IMPRESSION: 1. Nonspecific soft tissue swelling of the right lower extremity, this is most prominent involving the dorsal aspect of the foot and ankle. No well-defined abscess identified. There is no evidence of necrotizing fasciitis. 2. No acute osseous abnormality. 3. Intact right knee arthroplasty. 4. Moderate calcaneal enthesopathy at the insertion of the Achilles tendon and plantar aponeurosis. 5. Mild degenerative/neuropathic changes are present involving the midfoot. D/ / 10/13/2018 15:45:01 Sanket Lange MD / [facility] Interpreting Provider: Sanket Lange MD - Time Spent With Patient Total time spent is greater than 50% in coordination of care (as documented) at patient's floor/unit and/or counseling patient: - Attending Attestation I examined this patient and my medical decision-[facility]. I agree with the documented findings, disposition and treatment plan as described except to the extent set forth below. 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 ED course included initiation of sepsis protocol, bl cxs, vanc + zosyn, CT RLE which showed no abscess or signs of nec fasc awake in bed. denies fevers, chills. + palpitations with hr in 110s on tele afib. no cp, sob, cough or wheezing. denies pain in rle at this time. updated to treatment plan and pt has no questions gen- alert, awake,appears stated age, malodorous and disheveled eyes- pupils equal round cv-tachy rate and irreg/irreg rhythm, normal s1,s2, no murmurs appreciated lungs- ctabl, no wheezing, rhonchi or crackles, normal resp effort on ra abd- soft, non tender, non distended, + bs skin- candidal appearing erythema in pannus and groin folds, erythema RLE foot to below knee, + warmth, numerous excoriations/bites bl legs, area of erythema l eft thigh, no draining/open wounds to culture neuro- AAOx3 Sepsis most likely 2/2 RLE Cellulitis- cont sepsis fluids, IV vanc + zosyn (old cx results from LLE prior to requiring amputation reviewed and all were sensitive to Vanc) RLE Erythema/Edema 2/2 cellullitis- rule out DVT given hx of clots while on AC in past, currently on xarelto -vanc + zosyn, RLE US Hypokalemia- 40 meq PO kcl ordered Hypophosphatemia- Neutra phos PO repletion ordered Tachycardia with Afib on EKG, HR variable 120s initally then normal rate with first IVF bolus, now 110s again -cont afib meds, boluses/MIVFs, tele and xarelto Afib on Xarelto, Dig, Diltiazem DVT LLE Hx on Xarelto Chronic Anemia- follows with onc- hold home iron in setting of sepsis Chronic diastolic CHF- hold home lasix given sepsis and IVF resuscitation Left AKA 06/2018 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 Lewis is a 68 year old female with a past medical history of A. fib on Xarelto, hx of DVT in diastolic congestive heart failure, COPD on 2L at night, hypertension, status post left AKA 2/2 to persistent MRSA infection who presented to the ED for right lower extremity swelling, redness and pain. Patient states that swelling began yesterday. She has not had this problem in almost a year. She has multiple scabs on her lower extremities. Looking at records she has had a hx of DVT in her left lower extremity. She denies fevers but admits to chills. In the ED, patient was in A. fib RVR intermittently. Patient was given 1 L fluid bolus, and heart rate improved a little. Respiratory rate 22, white blood cell count 22.1, but lactic acid 1.4, creatinine within normal limits, blood pressure stable. Patient meets SIRS criteria. She was started on Vanco and Zosyn. Patient was admitted for lower extremity cellulitis with concern for developing sepsis. Upon bedside exam, patient was alert and oriented. She denies abdominal pain, shortness of breath or chest pain. Past Med Surg Social Fam HX - Past Medical History Medical history: atrial fibrillation, CHF, COPD, GERD, hyperlipidemia, hypertension, other Additional medical history: sleep apnea, DVT left leg,. Psychiatric history: depression - Past Surgical History Surgical History: knee replacement, other Additional surgical history: BL knee replacement, left leg AkA - Social History Smoking Status: Current every day smoker Smokeless Tobacco Status: Yes Alcohol use: none Drug use: none - Family History Mother Adopted: No Family Member Ethnicity: Non- Living Status: Hx Family Cardiac Disorders: Yes (TIAs, CVA, HTN) Hx Family Respiratory Disorders: Yes Hx Family Cancer: Yes Hx Family GI Disorders: No Hx Family Endocrine Disorder: Yes Hx Family Neuromuscular Disorders: No Hx Family Neurologic Disorders: No Hx Family HEENT Disorders: No Hx Family Autoimmune Disorders: No Father Family Member Ethnicity: Non- Living Status: Hx Family Cardiac Disorders: Yes Hx Family Respiratory Disorders: Yes Hx Family Cancer: Yes (Stomach) Hx Family GI Disorders: No Hx Family Endocrine Disorder: No Hx Family Neuromuscular Disorders: Yes Hx Family Neurologic Disorders: Yes Hx Family HEENT Disorders: No Hx Family Autoimmune Disorders: No Brother Adopted: No Family Member Ethnicity: Non- Living Status: Still Living Hx Family Cardiac Disorders: Yes Hx Family Respiratory Disorders: No Hx Family Cancer: No Hx Family GI Disorders: No Hx Family Endocrine Disorder: Yes Hx Family Neuromuscular Disorders: No Hx Family Neurologic Disorders: Yes Hx Family HEENT Disorders: No Hx Family Autoimmune Disorders: No Sister Adopted: No Family Member Ethnicity: Non- Living Status: Still Living Hx Family Cardiac Disorders: Yes (HTN) Hx Family Respiratory Disorders: Yes (COPD, ASTHMA) Hx Family Cancer: No Hx Family GI Disorders: No Hx Family Endocrine Disorder: No Hx Family Neuromuscular Disorders: No Hx Family Neurologic Disorders: No Hx Family HEENT Disorders: No Hx Family Autoimmune Disorders: No All Systems PM: A 10-system review of systems was performed and is negative for pertinent findings except as documented above in the HPI. - Constitutional Constitutional: as per HPI - Constitutional Vitals: Temp Pulse Resp BP Pulse Ox 99.3 F 116 19 134/81 98 10/13/18 12:54 10/13/18 14:49 10/13/18 14:49 10/13/18 14:49 10/13/18 14:49 Exam: Constitutional: Alert, in no acute distress HEENT: Normocephalic, atraumatic, dry mucous membranes Heart: Normal, regular rate and rhythm, no murmurs Lungs: wheezing present bilaterally, no increase wokr of breathing on RA Abdomen: Soft, nondistended, nontender, bowel sounds present and normal, no guarding or rigidity. Extremities: left AKA, right lower extremity with non-pitting edema, redness, warm that extends from her toes to her knee, no thrombophlebitis noted, + calf tenderness, capillary refill <2sec. Skin: under panus redness, Skin warm and dry, no jaundice Neurologic: Cranial nerves II through XII grossly intact, Psych: Cooperative with exam, good eye contact, cognitive function intact, speech clear, thought process logical, and goal directed Internal Med - H&P Results - Labs CBC & Chem 7: 10/13/18 13:32 10/13/18 13:32 Labs: Short CBC 10/13/18 Range/Units 13:32 WBC 22.1 H (4.3-11.1) K/mcL Hgb 12.9 (11.5-15.4) g/dL Hct 42.3 (35.3-44.9) % Plt Count 226 (140-400) K/mcL Neutrophils # 20.0 H (1.6-8.9) K/mcL BMP 10/13/18 13:32 Sodium 134 L Potassium 3.4 L Chloride 99 Carbon Dioxide 25 BUN 16 Creatinine 0.70 Glucose 122 H Calcium 9.7 Cardiac Enzymes 10/13/18 Range/Units 13:32 Troponin I 0.03 (< 0.04) ng/mL Liver Function 10/13/18 Range/Units 13:32 Total Bilirubin 0.4 (0.3-1.0) mg/dL Direct Bilirubin 0.1 (0.0-0.2) mg/dL AST 14 (13-39) Units/L ALT 12 (7-52) Units/L Alkaline Phosphatase 98 (34-104) Units/L Albumin 3.9 (3.5-5.7) g/dL Urine 10/13/18 Range/Units 14:14 Urine Color Dark Yellow (Yellow) Urine Clarity Clear (Clear) Urine pH 5.5 (5.0-8.0) pH Units Ur Specific Ayden 1.022 (1.010-1.025) Urine Protein 100 H (Neg-Trace) mg/dL Urine Glucose (UA) Normal (Normal) mg/dL - Impressions ITS Impressions Chest X-Ray 10/13/18 12:58 IMPRESSION: 1. No convincing finding in the chest to account for patient's sepsis. Bandlike density in the left base is probably atelectasis or scarring. 2. Stable mild enlargement of the cardiac silhouette. D/ / Nba Georges MD / Nba Georges MD Interpreting Provider: Nba Georges MD Lower Extremity CT 10/13/18 13:28 IMPRESSION: 1. Nonspecific soft tissue swelling of the right lower extremity, this is most prominent involving the dorsal aspect of the foot and ankle. No well-defined abscess identified. There is no evidence of necrotizing fasciitis. 2. No acute osseous abnormality. 3. Intact right knee arthroplasty. 4. Moderate calcaneal enthesopathy at the insertion of the Achilles tendon and plantar aponeurosis. 5. Mild degenerative/neuropathic changes are present involving the midfoot. D/ / 10/13/2018 15:45:01 Sanket Lange MD / [facility] Interpreting Provider: Sanket Lange MD - Assessment and plan (1) Sepsis Current Visit: No Status: Acute Assessment and plan: Concern for Sepsis 2/2 to cellulitis. Respiratory rate 22, white blood cell count 22.1, but lactic acid 1.4, creatinine within normal limits, blood pressure stable. Patient meets SIRS criteria and has a source of infection. LE CT shows "Nonspecific soft tissue swelling of the right lower extremity, this is most prominent involving the dorsal aspect of the foot and ankle. No well- defined abscess identified. There is no evidence of necrotizing fasciitis." CXR normal. UA does not show bacterial infection. Obtained 1L of fluids in the ED. Will bolus 1L and start LR at 100ml/hr. Patient looks dry. Will continue broad-spectrum antibiotics with Zosyn and vancomycin to cover for cellulitis. Plan: - Antibiotics: Vanco and zosyn ( day 1) - s/p 2L of NS, continue LR 100ml/hr - correcting electrolyte imbalances - continue telemetry - diet: cardiac diet Qualifiers: Sepsis type: sepsis due to unspecified organism Qualified Code(s): A41.9 - Sepsis, unspecified organism (2) Cellulitis of right lower extremity Current Visit: Yes Status: Acute Assessment and plan: See plan above. Continue antibiotics. Right lower extremity swelling and redness was likely due to cellulitis but will obtain left lower extremity ultrasound to rule out DVT. Patient is able to wiggle toes and pain is not out of proportion to exam and therefore not likely to be compartment syndrome. (3) Diastolic CHF Current Visit: Yes Status: Chronic Assessment and plan: BNP = 347. Mildly elevated BNP. Patient is not acutely short of breath compared to normal. Patient is receiving 2 L of fluids due to sepsis. Patient is normally on Lasix 40 mg twice a day, will hold for now. We will continue to monitor respiratory status and fluid volume closely. Last echo 08/09/17 - EF 50-55%, indeterminate diastolic dysfunction Plan: - holding Lasix BID - strict I&Os -consider obtaining echo, will hold off for now, will not oil changer of care at this point Qualifiers: Heart failure chronicity: chronic Qualified Code(s): I50.32 - Chronic diastolic (congestive) heart failure (4) Afib Current Visit: No Status: Chronic Assessment and plan: Afib anticoagulated on Xarelto. Currently jumping between Afib RVR and rate controlled. Patient given 2L of fluids. Started on LR 100ml/hr. Giving Lopressor 5mg IV Q6H prn tachycardia > 110. A. fib RVR most likely due to infection. Plan: - continue home meds: Digoxin, Diltiazem 240mg daily - continue Xarelto - Lopressor 5mg IVP Q6h prn for tachycardia - continue telemetry - consider cardizem drip if continue to be tachycardic through the night. Qualifiers: Atrial fibrillation type: chronic Qualified Code(s): I48.2 - Chronic atrial fibrillation (5) COPD (chronic obstructive pulmonary disease) Current Visit: No Status: Acute Assessment and plan: Patient is on room air during the day and 2 L of oxygen at night. We did baseline. Do not believe she is in COPD exacerbation. We will continue home medications and albuterol treatments every 6 hours. Qualifiers: COPD type: unspecified COPD Qualified Code(s): J44.9 - Chronic obstructive pulmonary disease, unspecified (6) Hypokalemia Current Visit: Yes Status: Acute Assessment and plan: K = 3. 4, Will replace with KCl 40 meq (7) Hypophosphatemia Current Visit: Yes Status: Acute Assessment and plan: Phos = 2.1, Will replace. Will recheck in the AM. (8) Hx of deep venous thrombosis Current Visit: Yes Status: Acute Assessment and plan: On Xarelto. Right lower extremity swelling. We will obtain right lower e xtremity ultrasound to rule out DVT. Patient in already on Xarelto so if DVT may not be taking it. (9) Panniculitis Current Visit: Yes Status: Acute Assessment and plan: chronic. Ketoconazole cream 2% BID. (10) DVT prophylaxis Current Visit: Yes Status: Acute Assessment and plan: On Xarelto (11) Anemia Current Visit: Yes Status: Chronic Assessment and plan: stable. Holding iron supplement during sepsis. Qualifiers: Anemia type: iron deficiency Iron deficiency anemia type: inadequate dietary iron intake Qualified Code(s): D50.8 - Other iron deficiency anemias - Time Spent With Patient Total time spent is greater than 50% in coordination of care (as documented) at patient's floor/unit and/or counseling patient:
[2018-10-13] MEDS ORDERED: Vancomycin (wt based) 1,000 MG VIAL IVPB SCH (17:00)
[2018-10-13] MEDS ORDERED: *HR* Metoprolol 5 MG/5 ML VIAL IVP PRN (18:16)
[2018-10-13] MEDS ORDERED: Ipratropium/Albuterol Neb 3 ML IH PRN (18:30)
[2018-10-13] MEDS: Ringers Solution, Lactated 1,000 ML IVC SCH (18:50)
[2018-10-13] MEDS: Gabapentin 300 MG CAPSULE PO SCH (20:11)
[2018-10-13] MEDS: Ketoconazole 2% CRM 15 GM TUBE TP SCH (20:12)
[2018-10-14] MEDS: Piperacillin/Tazobactam 3.375 GM in 0.9 % Sodium Chloride Mini Bag 100 ML IVPB SCH ×3 (00:59→16:54)
[2018-10-14 03:31] LABS: Basophils % 0.2 %; Eosinophils # 0.2 K/mcL (0.0-0.6); Eosinophils % 1.2 %; Hematocrit 34.4 % (35.3-44.9); Immature Granulocytes % 0.8 % (0-4); Lymphocytes # 0.9 K/mcL (0.6-4.6); Lymphocytes % 6.2 %; Mean Corpuscular HGB Conc 31.1 g/dL (31.6-35.5); Mean Corpuscular Hemoglobin 24.8 pg (28.0-33.3); Mean Corpuscular Volume 79.6 fL (83.0-100.0); Monocytes # 0.7 K/mcL (0.0-1.3); Monocytes % 4.9 %; Neutrophils # 13.1 K/mcL (1.6-8.9); Platelet Count 193 K/mcL (140-400); Red Blood Count 4.32 M/mcL (3.82-4.97); Red Cell Distribution Width 19.7 % (11.5-14.5); Segmented Neutrophils % 86.7 %
[2018-10-14 03:32] LABS: Hemoglobin 10.7 g/dL (11.5-15.4)
[2018-10-14 04:00] LABS: BUN/Creatinine Ratio 22 (6-26); Blood Urea Nitrogen 16 mg/dL (8-23); Calcium 8.7 mg/dL (8.6-10.3); Carbon Dioxide 26 mEq/L (23-29); Chloride 102 mEq/L (98-107); Glucose 121 mg/dL (70-105); Magnesium 2.1 mg/dL (1.6-2.6); Osmolality,Calculated 280 (280-300); Phosphorous 1.8 mg/dL (2.7-4.5); Potassium 4.1 mEq/L (3.5-5.1); Sodium 134 mEq/L (136-145); eGFR For Non-African Americans > 60 (> 60)
[2018-10-14] MEDS: *HR* Rivaroxaban 10 MG TABLET PO SCH (08:28)
[2018-10-14] MEDS: *HR* Digoxin 0.25 MG TABLET PO SCH (08:28)
[2018-10-14] MEDS: Aspirin Enteric Coated 81 MG Tablet PO SCH (08:28)
[2018-10-14] MEDS: Gabapentin 300 MG CAPSULE PO SCH ×3 (08:28→21:42)
[2018-10-14] MEDS: Diltiazem CD (24hr) 240 MG CAPSULE PO SCH (08:28)
[2018-10-14] MEDS: Ketoconazole 2% CRM 15 GM TUBE TP SCH ×2 (08:37→21:42)
[2018-10-14] MEDS: *HR* HYDROcodone/Acet 5/325 mg TABLET PO PRN (08:47)
--- NOTE | 2018-10-14 12:36 | Internal Med Progress Note ---
<Yamila Tabares - Last Filed: 10/14/18 12:52> Hospitalist Progress Note - Encounter Date of Encounter: 10/14/18 - Exam Vitals: Temp Pulse Resp BP Pulse Ox 97.9 F 96 15 127/78 93 10/14/18 10:39 10/14/18 10:39 10/14/18 10:39 10/14/18 10:39 10/14/18 10:39 - Assessment and Plan (1) Sepsis Current Visit: No Status: Acute (2) Cellulitis of right lower extremity Current Visit: Yes Status: Acute (3) COPD (chronic obstructive pulmonary disease) Current Visit: No Status: Acute (4) Afib Current Visit: No Status: Chronic (5) Hx of deep venous thrombosis Current Visit: Yes Status: Acute (6) Diastolic CHF Current Visit: Yes Status: Chronic (7) Hypokalemia Current Visit: Yes Status: Acute (8) DVT prophylaxis Current Visit: Yes Status: Acute (9) Hypophosphatemia Current Visit: Yes Status: Acute (10) Panniculitis Current Visit: Yes Status: Acute (11) Anemia Current Visit: Yes Status: Chronic - Time Spent with Patient Total time spent is greater than 50% in coordination of care (as documented) at patient's floor/unit and/or counseling patient: Internal Medicine: Result - Labs CBC & Chem 7: 10/14/18 03:08 10/14/18 03:08 Labs: Short CBC 10/13/18 10/14/18 Range/Units 13:32 03:08 WBC 22.1 H 15.1 H (4.3-11.1) K/mcL Hgb 12.9 10.7 L D (11.5-15.4) g/dL Hct 42.3 34.4 L (35.3-44.9) % Plt Count 226 193 (140-400) K/mcL Neutrophils # 20.0 H 13.1 H (1.6-8.9) K/mcL BMP 10/13/18 10/14/18 13:32 03:08 Sodium 134 L 134 L Potassium 3.4 L 4.1 Chloride 99 102 Carbon Dioxide 25 26 BUN 16 16 Creatinine 0.70 0.72 Glucose 122 H 121 H Calcium 9.7 8.7 Cardiac Enzymes 10/13/18 Range/Units 13:32 Troponin I 0.03 (< 0.04) ng/mL Liver Function 10/13/18 Range/Units 13:32 Total Bilirubin 0.4 (0.3-1.0) mg/dL Direct Bilirubin 0.1 (0.0-0.2) mg/dL AST 14 (13-39) Units/L ALT 12 (7-52) Units/L Alkaline Phosphatase 98 (34-104) Units/L Albumin 3.9 (3.5-5.7) g/dL Urine 10/13/18 Range/Units 14:14 Urine Color Dark Yellow (Yellow) Urine Clarity Clear (Clear) Urine pH 5.5 (5.0-8.0) pH Units Ur Specific [place] 1.022 (1.010-1.025) Urine Protein 100 H (Neg-Trace) mg/dL Urine Glucose (UA) Normal (Normal) mg/dL - ABG Interpretation ABG results: PT/INR, D-dimer PT 14.4 Seconds (9.4-12.1) H 10/13/18 13:32 - Impressions Impressions Chest X-Ray 10/13/18 12:58 IMPRESSION: 1. No convincing finding in the chest to account for patient's sepsis. Bandlike density in the left base is probably atelectasis or scarring. 2. Stable mild enlargement of the cardiac silhouette. D/ / Nba Georges MD / Nba Georges MD Interpreting Provider: Nba Georges MD Lower Extremity CT 10/13/18 13:28 IMPRESSION: 1. Nonspecific soft tissue swelling of the right lower extremity, this is most prominent involving the dorsal aspect of the foot and ankle. No well-defined abscess identified. There is no evidence of necrotizing fasciitis. 2. No acute osseous abnormality. 3. Intact right knee arthroplasty. 4. Moderate calcaneal enthesopathy at the insertion of the Achilles tendon and plantar aponeurosis. 5. Mild degenerative/neuropathic changes are present involving the midfoot. D/ / 10/13/2018 15:45:01 Sanket Lange MD / leida Interpreting Provider: Sanket Lange MD Consult Discharge Plan - Plan Referrals: Edouard Cole MD [Primary Care Provider] - - Attending Attestation I examined this patient and my medical decision-making was reviewed with the Resident Physician Dr Parham. I agree with the documented findings, disposition and treatment plan as described except to the extent set forth below. Ms Lewis is admitted for sepsis 2/2 RLE cellulitis awake in bed. pleasant, much more alert and comfortable. + pain in rle with any movement. denies fevers, chills. no cp or palpitations. no n/v and eating with out difficulty gen- alert, awake,appears stated age, malodorous and disheveled cv-tachy rate and irreg/irreg rhythm, normal s1,s2, no murmurs appreciated, trace RLE pitting edema lungs- ctabl, no wheezing, rhonchi or crackles, normal resp effort on ra skin- erythema RLE foot to below knee remains within marked area but has not reduced in erythmea or distribution, + warmth, numerous excoriations/bites bl leg, no draining/open wounds to culture neuro- AAOx3 Sepsis most likely 2/2 RLE Cellulitis- IVFs, monitor BP and HR, may be able to decrease today or tomorrow, IV vanc + zosyn (old cx results from LLE prior to requiring amputation reviewed and all were sensitive to Vanc) RLE Erythema/Edema 2/2 cellullitis- rule out DVT given hx of clots while on AC in past, currently on xarelto -vanc + zosyn, RLE US prelim neg Hypokalemia- resolved Hypophosphatemia- Iv phos today Afib with HR slightly above goal (110s)- on Xarelto, Dig, Diltiazem- suspect not taking meds at home, received full doses this morning, if HR remains above goal this afternoon may consider cardizem gtt, at this time she is asx and normotensive DVT LLE Hx on Xarelto Chronic Anemia- follows with onc- hold home iron in setting of sepsis Chronic diastolic CHF- hold home lasix given sepsis and IVF resuscitation, strict i/os, monitoring need for continued fluids 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 Lewis is a 68 year old female with a past medical history of A. fib on Xarelto, hx of DVT in diastolic congestive heart failure, COPD on 2L at night, hypertension, status post left AKA 2/2 to persistent MRSA infection who presented to the ED for right lower extremity swelling, redness and pain admitted for sepsis secondary to right lower extremity cellulitis. Today patient is more alert and active and yesterday. She states that she is feeling better. She has not noticed a change in her leg swelling. - Exam Vitals: Temp Pulse Resp BP Pulse Ox 97.9 F 96 15 127/78 93 10/14/18 10:39 10/14/18 10:39 10/14/18 10:39 10/14/18 10:39 10/14/18 10:39 Exam: Constitutional: Alert, in no acute distress HEENT: Normocephalic, atraumatic, dry mucous membranes Heart: irregular rhythme, regular rate, no murmurs Lungs: wheezing present bilaterally, no increase wokr of breathing on RA Abdomen: Soft, nondistended, nontender, bowel sounds present and normal, no guarding or rigidity. Extremities: left AKA, right lower extremity with non-pitting edema, redness, warm that extends from her toes to her knee, no lymphanginitis noted, + calf tenderness, capillary refill <2sec. Skin: under panus redness, Skin warm and dry, no jaundice Neurologic: Cranial nerves II through XII grossly intact, Psych: Cooperative with exam, good eye contact, cognitive function intact, speech clear, thought process logical, and goal directed - Assessment and Plan (1) Sepsis Current Visit: No Status: Acute Assessment and Plan: Concern for Sepsis 2/2 to cellulitis. Respiratory rate 22, white blood cell count 22.1, but lactic acid 1.4, creatinine within normal limits, blood pressure stable. Patient meets SIRS criteria and has a source of infection. LE CT shows "Nonspecific soft tissue swelling of the right lower extremity, this is most prominent involving the dorsal aspect of the foot and ankle. No well- defined abscess identified. There is no evidence of necrotizing fasciitis." C XR normal. UA does not show bacterial infection. s/p 2L of fluid. LR has been running overnight at 100ml/hr. Patient is not short of breath. Heart rate is now wnl after morning medications. Will d/c the fluids this evening as patient also has CHF and we do not want to fluid overload. Will continue broad-spectrum antibiotics with Zosyn and vancomycin to cover for cellulitis. Patient is able to transfer on her own. Unsure why scott was placed as patient does not have at home. Will decrease another source of infection by d/c the scott. Plan: - Antibiotics: Vanco and zosyn ( day 2) - s/p 2L of NS, continue LR 100ml/hr d/c after 2L - correcting electrolyte imbalances - continue telemetry - d/c scott - US LE negative - diet: cardiac diet (2) Cellulitis of right lower extremity Current Visit: Yes Status: Acute Assessment and Plan: See plan above. Continue antibiotics. Right lower extremity swelling and redness was likely due to cellulitis but left lower extremity ultrasound obtained to rule out DVT, US was negative. Patient is able to wiggle toes and pain is not out of proportion to exam and therefore not likely to be compartment syndrome. (3) Diastolic CHF Current Visit: Yes Status: Chronic Assessment and Plan: BNP = 347. Mildly elevated BNP. Patient is not acutely short of breath compared to normal. Patient is receiving 2 L of fluids due to sepsis. Patient is normally on Lasix 40 mg twice a day, will hold for now. We will continue to monitor respiratory status and fluid volume closely. Last echo 08/09/17 - EF 50- 55%, indeterminate diastolic dysfunction. Patient's SOB is at baseline, not on oxygen. Will continue LR for 2L then stop tonight. Will reassess fluid status in the AM. Plan: - holding Lasix BID - strict I&Os - stopping LR in the evening -consider obtaining echo, will hold off for now, will not record changer assembler of care at this point (4) Afib Current Visit: No Status: Chronic Assessment and Plan: Afib anticoagulated on Xarelto. Currently jumping between Afib RVR and rate controlled. Patient given 2L of fluids. Started on LR 100ml/hr. Giving Lopressor 5mg IV Q6H prn tachycardia > 110. A. fib RVR most likely due to infection vs. medication non-compliance. Given home medications this AM and HR improved. Continue home medications. Plan: - continue home meds: Digoxin, Diltiazem 240mg daily - continue Xarelto - Lopressor 5mg IVP Q6h prn for tachycardia - continue telemetry (5) COPD (chronic obstructive pulmonary disease) Current Visit: No Status: Acute Assessment and Plan: Patient is on room air during the day and 2 L of oxygen at night. We did baseline. Do not believe she is in COPD exacerbation. We will continue home medications and albuterol treatments every 6 hours. (6) Hypokalemia Current Visit: Yes Status: Acute Assessment and Plan: K = 4.1 (3.1). continue to monitor. (7) Hypophosphatemia Current Visit: Yes Status: Acute Assessment and Plan: Phos = 1.8 (2.1) Will replace with K Phos 22meq. Will recheck in the AM. (8) Hx of deep venous thrombosis Current Visit: Yes Status: Acute Assessment and Plan: On Xarelto. Right lower extremity swelling. We will obtain right lower extremity ultrasound to rule out DVT. Patient in already on Xarelto so if DVT may not be taking it. (9) Panniculitis Current Visit: Yes Status: Acute Assessment and Plan: chronic. Ketoconazole cream 2% BID. (10) Anemia Current Visit: Yes Status: Chronic Assessment and Plan: Decrease, most likely dilutional. recheck in the AM. Holding iron supplement during sepsis. DVT Prophylaxis: Heparin SQ - Time Spent with Patient Total time spent is greater than 50% in coordination of care (as documented) at patient's floor/unit and/or counseling patient: Plan of Care Discussed with: patient Internal Medicine: Result - Labs CBC & Chem 7: 10/14/18 03:08 10/14/18 03:08 Labs: Short CBC 10/13/18 10/14/18 Range/Units 13:32 03:08 WBC 22.1 H 15.1 H (4.3-11.1) K/mcL Hgb 12.9 10.7 L D (11.5-15.4) g/dL Hct 42.3 34.4 L (35.3-44.9) % Plt Count 226 193 (140-400) K/mcL Neutrophils # 20.0 H 13.1 H (1.6-8.9) K/mcL BMP 10/13/18 10/14/18 13:32 03:08 Sodium 134 L 134 L Potassium 3.4 L 4.1 Chloride 99 102 Carbon Dioxide 25 26 BUN 16 16 Creatinine 0.70 0.72 Glucose 122 H 121 H Calcium 9.7 8.7 Cardiac Enzymes 10/13/18 Range/Units 13:32 Troponin I 0.03 (< 0.04) ng/mL Liver Function 10/13/18 Range/Units 13:32 Total Bilirubin 0.4 (0.3-1.0) mg/dL Direct Bilirubin 0.1 (0.0-0.2) mg/dL AST 14 (13-39) Units/L ALT 12 (7-52) Units/L Alkaline Phosphatase 98 (34-104) Units/L Albumin 3.9 (3.5-5.7) g/dL Urine 10/13/18 Range/Units 14:14 Urine Color Dark Yellow (Yellow) Urine Clarity Clear (Clear) Urine pH 5.5 (5.0-8.0) pH Units Ur Specific [place] 1.022 (1.010-1.025) Urine Protein 100 H (Neg-Trace) mg/dL Urine Glucose (UA) Normal (Normal) mg/dL - ABG Interpretation ABG results: PT/INR, D-dimer PT 14.4 Seconds (9.4-12.1) H 10/13/18 13:32 - Impressions Impressions Chest X-Ray 10/13/18 12:58 IMPRESSION: 1. No convincing finding in the chest to account for patient's sepsis. Bandlike density in the left base is probably atelectasis or scarring. 2. Stable mild enlargement of the cardiac silhouette. D/ / Nba Georges MD / Nba Georges MD Interpreting Provider: Nba Georges MD Lower Extremity CT 10/13/18 13:28 IMPRESSION: 1. Nonspecific soft tissue swelling of the right lower extremity, this is most prominent involving the dorsal aspect of the foot and ankle. No well-defined abscess identified. There is no evidence of necrotizing fasciitis. 2. No acute osseous abnormality. 3. Intact right knee arthroplasty. 4. Moderate calcaneal enthesopathy at the insertion of the Achilles tendon and plantar aponeurosis. 5. Mild degenerative/neuropathic changes are present involving the midfoot. D/ / 10/13/2018 15:45:01 Sanket Lange MD / leida Interpreting Provider: Sanket Lange MD <Yamila Tabares - Last Filed: 10/14/18 12:52> (1) Sepsis Qualifiers: Sepsis type: sepsis due to unspecified organism Qualified Code(s): A41.9 - Sepsis, unspecified organism (3) COPD (chronic obstructive pulmonary disease) Qualifiers: COPD type: unspecified COPD Qualified Code(s): J44.9 - Chronic obstructive pulmonary disease, unspecified (4) Afib Qualifiers: Atrial fibrillation type: chronic Qualified Code(s): I48.2 - Chronic atrial fibrillation (6) Diastolic CHF Qualifiers: Heart failure chronicity: chronic Qualified Code(s): I50.32 - Chronic diastolic (congestive) heart failure (11) Anemia Qualifiers: Anemia type: iron deficiency Iron deficiency anemia type: inadequate dietary iron intake Qualified Code(s): D50.8 - Other iron deficiency anemias <Lashell Parham - Last Filed: 10/14/18 14:31> (1) Sepsis Qualifiers: Sepsis type: sepsis due to unspecified organism Qualified Code(s): A41.9 - Sepsis, unspecified organism (3) Diastolic CHF Qualifiers: Heart failure chronicity: chronic Qualified Code(s): I50.32 - Chronic diastolic (congestive) heart failure (4) Afib Qualifiers: Atrial fibrillation type: chronic Qualified Code(s): I48.2 - Chronic atrial fibrillation (5) COPD (chronic obstructive pulmonary disease) Qualifiers: COPD type: unspecified COPD Qualified Code(s): J44.9 - Chronic obstructive pulmonary disease, unspecified (10) Anemia Qualifiers: Anemia type: iron deficiency Iron deficiency anemia type: inadequate dietary iron intake Qualified Code(s): D50.8 - Other iron deficiency anemias
--- NOTE | 2018-10-14 12:51 | Electrocardiograph Report ---
[place] [id number] Test Date: 2018-10-13 Pat Name: Capri Lewis Department: [id number] Room: 3A33 Gender: F [employer]: : 1950 Requested By: Gregory Sewell Order Number: [id number] Reading MD: Paulino Russell Measurements Intervals [place] Rate: 129 P: [place]: QRS: 68 QRSD: 89 T: -73 QT: 266 QTc: 390 Interpretive Statements Atrial fibrillation Repol abnrm suggests ischemia, diffuse leads Electronically Signed On 10-14-2018 12:49:07 EST by Paulino Rusesll
[2018-10-14] MEDS: Ringers Solution, Lactated 1,000 ML IVC SCH (13:57)
[2018-10-15] MEDS: Piperacillin/Tazobactam 3.375 GM in 0.9 % Sodium Chloride Mini Bag 100 ML IVPB SCH ×3 (00:26→15:48)
[2018-10-15 02:29] LABS: Basophils % 0.2 %; Eosinophils # 0.7 K/mcL (0.0-0.6); Eosinophils % 5.3 %; Hematocrit 34.2 % (35.3-44.9); Hemoglobin 10.5 g/dL (11.5-15.4); Immature Granulocytes % 0.6 % (0-4); Mean Corpuscular HGB Conc 30.7 g/dL (31.6-35.5); Mean Corpuscular Hemoglobin 24.5 pg (28.0-33.3); Mean Corpuscular Volume 79.7 fL (83.0-100.0); Mean Platelet Volume 10.3 fL (9.4-12.4); Monocytes # 0.9 K/mcL (0.0-1.3); Monocytes % 6.9 %; Neutrophils # 10.2 K/mcL (1.6-8.9); Platelet Count 204 K/mcL (140-400); Red Blood Count 4.29 M/mcL (3.82-4.97); Red Cell Distribution Width 19.7 % (11.5-14.5)
[2018-10-15 02:47] LABS: BUN/Creatinine Ratio 27 (6-26); Blood Urea Nitrogen 20 mg/dL (8-23); Calcium 9.1 mg/dL (8.6-10.3); Carbon Dioxide 26 mEq/L (23-29); Chloride 103 mEq/L (98-107); Glucose 112 mg/dL (70-105); Osmolality,Calculated 287 (280-300); Phosphorous 3.5 mg/dL (2.7-4.5); Potassium 4.1 mEq/L (3.5-5.1); Sodium 137 mEq/L (136-145); eGFR For Non-African Americans > 60 (> 60)
[2018-10-15] MEDS: Diltiazem CD (24hr) 240 MG CAPSULE PO SCH (07:40)
[2018-10-15] MEDS: Gabapentin 300 MG CAPSULE PO SCH ×3 (07:40→21:16)
[2018-10-15] MEDS: *HR* Rivaroxaban 10 MG TABLET PO SCH (07:40)
[2018-10-15] MEDS: Aspirin Enteric Coated 81 MG Tablet PO SCH (07:40)
[2018-10-15] MEDS: Ketoconazole 2% CRM 15 GM TUBE TP SCH ×2 (07:40→21:17)
[2018-10-15] MEDS: *HR* Digoxin 0.25 MG TABLET PO SCH (07:40)
[2018-10-15] MEDS: *HR* HYDROcodone/Acet 5/325 mg TABLET PO PRN ×2 (07:41→15:47)
--- NOTE | 2018-10-15 08:45 | Internal Med Progress Note ---
<Yamila Tabares - Last Filed: 10/15/18 09:54> Hospitalist Progress Note - Encounter Date of Encounter: 10/15/18 - Exam Vitals: Temp Pulse Resp BP Pulse Ox 98.1 F 95 19 154/96 95 10/15/18 07:03 10/15/18 07:03 10/15/18 07:03 10/15/18 07:03 10/15/18 08:15 - Assessment and Plan (1) Sepsis Current Visit: No Status: Acute (2) Cellulitis of right lower extremity Current Visit: Yes Status: Acute (3) COPD (chronic obstructive pulmonary disease) Current Visit: No Status: Acute (4) Afib Current Visit: No Status: Chronic (5) Hx of deep venous thrombosis Current Visit: Yes Status: Acute (6) Diastolic CHF Current Visit: Yes Status: Chronic (7) Hypokalemia Current Visit: Yes Status: Acute (8) Hypophosphatemia Current Visit: Yes Status: Acute (9) Panniculitis Current Visit: Yes Status: Acute (10) Anemia Current Visit: Yes Status: Chronic - Time Spent with Patient Total time spent is greater than 50% in coordination of care (as documented) at patient's floor/unit and/or counseling patient: Internal Medicine: Result - Labs CBC & Chem 7: 10/15/18 02:18 10/15/18 02:18 Labs: Short CBC 10/15/18 Range/Units 02:18 WBC 12.9 H (4.3-11.1) K/mcL Hgb 10.5 L (11.5-15.4) g/dL Hct 34.2 L (35.3-44.9) % Plt Count 204 (140-400) K/mcL Neutrophils # 10.2 H (1.6-8.9) K/mcL BMP 10/15/18 02:18 Sodium 137 Potassium 4.1 Chloride 103 Carbon Dioxide 26 BUN 20 Creatinine 0.74 Glucose 112 H Calcium 9.1 - ABG Interpretation ABG results: PT/INR, D-dimer PT 14.4 Seconds (9.4-12.1) H 10/13/18 13:32 Consult Discharge Plan - Plan Referrals: Edouard Cole MD [Primary Care Provider] - - Attending Attestation I examined this patient and my medical decision-making was reviewed with the Resident Physician Dr Romeo. I agree with the documented findings, disposition and treatment plan as described except to the extent set forth below. Ms Lewis is admitted for sepsis 2/2 RLE cellulitis awake in chair. no fevers or chills. le redness improved, remains painful. She has new excoriations on leg, blood under her nails and smears of blood on her leg. She admits to itching legs and education provided on danger of this in spreading infection. She has a liter of diet cola at her bedside that she is drinking and eating breakfast. no n/v/d or and pain. no knee pain or swelling gen- alert, awake,appears stated age cv-reg rate and reg rhythm, normal s1,s2, no murmurs appreciated, no pittling le edema lungs- ctabl, no wheezing, rhonchi or crackles, normal resp effort on ra skin- erythema RLE foot to below knee remains within marked area w significant reduction in erythema intensity, now multiple bleeding excoriations and one open small wound on cherry with yellow drainage msk- right knee without joint warmth, erythema or effusion noted, no pain with rom neuro- AAOx3 Sepsis most likely 2/2 RLE Cellulitis- dc IVFs, IV vanc + zosyn (old cx results from LLE prior to requiring amputation reviewed and all were sensitive to Vanc) RLE Erythema/Edema 2/2 cellullitis- rule out DVT given hx of clots while on AC in past, currently on xarelto -vanc + zosyn, RLE US neg for clot, check wound cx now that has open one on right cherry -XR right knee (asx, however had to have L AKA in recent months for infected artifical joint and has artificanl joint by Dr Schmidt on right as well), ortho as needed pending results/course this admit paroxysmal Afib- on Xarelto, Dig, Diltiazem DVT LLE Hx on Xarelto Chronic Anemia- follows with onc- hold home iron in setting of sepsis Chronic diastolic CHF- hold home lasix given sepsis and IVF resuscitation, strict i/os, monitoring need for re intiation as she was very dehysrated appearing on admit 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 Currently sitting in chair at bedside eating breakfast. No new or acute complaints. States her right leg continues to hurt to light palpation. Does admit to a period overnight which she suddenly felt very cold. States all day yesterday her room was too hot, and then it became very cool. Denies any diaphoresis. No chest pain, shortness of breath, abdominal pain, nausea, vomiting, urinary symptoms, or diarrhea. - Exam Vitals: Temp Pulse Resp BP Pulse Ox 98.1 F 95 19 154/96 95 10/15/18 07:03 10/15/18 07:03 10/15/18 07:03 10/15/18 07:03 10/15/18 07:03 Exam: General: obese female in no acute distress Head: normocephalic and atraumatic Eyes: PERRL, EOMI, sclera anicteric, conjunctiva pink Lungs: CTA bilaterally. Non-labored breathing on room air. No wheezes, rales, or rhonchi appreciated. Heart: RRR +S1 +S2 No murmurs, clicks, or rubs appreciated GI: abdomen soft, obese. normoactive bowel sounds Extremities: warm, radial pulses palpable and symmetrical. Significant edema with multiple bleeding excoriations and a small wound on anterior cherry with yellow drainage. Neuro: A&Ox3. no focal deficits. no speech difficulty or abnormality Skin: warm, dry, erythema of RLE reportedly improved from yesterday - Assessment and Plan (1) Sepsis Current Visit: No Status: Acute Assessment and Plan: On admission pt met SIRS criteria with a source of infection: Right LE CT of right LE revealed: - Nonspecific soft tissue swelling of the right lower extremity, most prominent involving the dorsal aspect of the foot and ankle. No well-defined abscess i dentified. No evidence of necrotizing fasciitis CXR normal UA does not suggest UTI Pt does have significant hx of MRSA infection She received 2L IV fluids and heart rate subsequently normalized. However she did have a Tmax of 100.1 yesterday evening with complaints of subjective fever and chills. Continue IV Vanc and Zosyn at this time (Day 3) Hold further IV fluids as she now appears euvolemic. Will monitor volume status closely with cardiac hx Blood cultures from 10/13/18 pending Will obtain wound culture of Right LE as there is an area of drainage with yellow fluid Also obtain XR of right knee, currently asymptomatic, but does have significant hx with L AKA in recent months for infected artificial joint and has artificial joint by Dr Schmidt on right as well), ortho as needed pending results/course this admit (2) Cellulitis of right lower extremity Current Visit: Yes Status: Acute Assessment and Plan: See plan above. Continue antibiotics. LE doppler negative (3) COPD (chronic obstructive pulmonary disease) Current Visit: Yes Status: Chronic Assessment and Plan: Not in acute exacerbation Continue home meds (4) Afib Current Visit: Yes Status: Chronic Assessment and Plan: Afib anticoagulated on Xarelto. Currently rate controlled after 2L IV fluids Continue home medications: Digoxin 0.25mg and Diltiazem 240mg daily continue Xarelto Lopressor 5mg IVP Q6h prn for tachycardia continue telemetry (5) Diastolic CHF Current Visit: Yes Status: Chronic Assessment and Plan: BNP was 347 which is mildly elevated Not acutely short of breath compared to normal. Appeared hypovolemic on admission, but now appears euvolemic after 2L IV fluids for sepsis. Normally on Lasix 40 mg twice a day, will continue to hold for now but continue to monitor respiratory status closely Last echo 08/09/17 - EF 50-55%, indeterminate diastolic dysfunction. Successfully weaned off supplemental O2 at this time Continue to hold home Lasix No further IV fluids at this time Continue strict I&Os (6) Panniculitis Current Visit: Yes Status: Chronic Assessment and Plan: chronic. Ketoconazole cream 2% BID. (7) Anemia Current Visit: Yes Status: Chronic Assessment and Plan: Decreased from admission but stable Most likely dilutional Continue to monitor closely DVT Prophylaxis: on Xarelto - Time Spent with Patient Total time spent is greater than 50% in coordination of care (as documented) at patient's floor/unit and/or counseling patient: Internal Medicine: Result - Labs CBC & Chem 7: 10/15/18 02:18 10/15/18 02:18 Labs: Short CBC 10/15/18 Range/Units 02:18 WBC 12.9 H (4.3-11.1) K/mcL Hgb 10.5 L (11.5-15.4) g/dL Hct 34.2 L (35.3-44.9) % Plt Count 204 (140-400) K/mcL Neutrophils # 10.2 H (1.6-8.9) K/mcL BMP 10/15/18 02:18 Sodium 137 Potassium 4.1 Chloride 103 Carbon Dioxide 26 BUN 20 Creatinine 0.74 Glucose 112 H Calcium 9.1 - ABG Interpretation ABG results: PT/INR, D-dimer PT 14.4 Seconds (9.4-12.1) H 10/13/18 13:32 <Yamila Tabares - Last Filed: 10/15/18 09:54> (1) Sepsis Qualifiers: Sepsis type: sepsis due to unspecified organism Qualified Code(s): A41.9 - Sepsis, unspecified organism (3) COPD (chronic obstructive pulmonary disease) Qualifiers: COPD type: unspecified COPD Qualified Code(s): J44.9 - Chronic obstructive pulmonary disease, unspecified (4) Afib Qualifiers: Atrial fibrillation type: chronic Qualified Code(s): I48.2 - Chronic atrial fibrillation (6) Diastolic CHF Qualifiers: Heart failure chronicity: chronic Qualified Code(s): I50.32 - Chronic diastolic (congestive) heart failure (10) Anemia Qualifiers: Anemia type: iron deficiency Iron deficiency anemia type: inadequate dietary iron intake Qualified Code(s): D50.8 - Other iron deficiency anemias <Asher Romeo - Last Filed: 10/15/18 20:21> (1) Sepsis Qualifiers: Sepsis type: sepsis due to unspecified organism Qualified Code(s): A41.9 - Se psis, unspecified organism (3) COPD (chronic obstructive pulmonary disease) Qualifiers: COPD type: unspecified COPD Qualified Code(s): J44.9 - Chronic obstructive pulmonary disease, unspecified (4) Afib Qualifiers: Atrial fibrillation type: chronic Qualified Code(s): I48.2 - Chronic atrial fibrillation (5) Diastolic CHF Qualifiers: Heart failure chronicity: chronic Qualified Code(s): I50.32 - Chronic diastolic (congestive) heart failure (7) Anemia Qualifiers: Anemia type: iron deficiency Iron deficiency anemia type: inadequate dietary iron intake Qualified Code(s): D50.8 - Other iron deficiency anemias
[2018-10-15] MEDS: Fluticasone Propionate Nasal 50 MCG/SPRAY BOTTLE NS SCH (13:22)
[2018-10-15] MEDS ORDERED: (Diclofenac Sodium [Voltaren] 1 APPL) TP PRN (18:29)
[2018-10-15] MEDS: Budesonide/Formoterol 160/4.5 1 PUFF INH IH SCH (21:52)
[2018-10-16] MEDS: Piperacillin/Tazobactam 3.375 GM in 0.9 % Sodium Chloride Mini Bag 100 ML IVPB SCH ×4 (00:49→23:57)
[2018-10-16 04:14] LABS: Basophils # 0.1 K/mcL (0.0-0.2); Basophils % 0.4 %; Eosinophils # 0.8 K/mcL (0.0-0.6); Eosinophils % 6.6 %; Hematocrit 33.4 % (35.3-44.9); Immature Granulocytes % 1.3 % (0-4); Lymphocytes # 1.3 K/mcL (0.6-4.6); Lymphocytes % 11.1 %; Mean Corpuscular HGB Conc 29.9 g/dL (31.6-35.5); Mean Corpuscular Hemoglobin 24.5 pg (28.0-33.3); Mean Corpuscular Volume 81.9 fL (83.0-100.0); Mean Platelet Volume 10.6 fL (9.4-12.4); Monocytes % 8.7 %; Neutrophils # 8.5 K/mcL (1.6-8.9); Platelet Count 209 K/mcL (140-400); Red Blood Count 4.08 M/mcL (3.82-4.97); Red Cell Distribution Width 19.7 % (11.5-14.5); Segmented Neutrophils % 71.9 %
[2018-10-16 04:27] LABS: BUN/Creatinine Ratio 23 (6-26); Blood Urea Nitrogen 16 mg/dL (8-23); Calcium 8.9 mg/dL (8.6-10.3); Carbon Dioxide 27 mEq/L (23-29); Chloride 104 mEq/L (98-107); Glucose 111 mg/dL (70-105); Osmolality,Calculated 286 (280-300); Phosphorous 4.1 mg/dL (2.7-4.5); Potassium 3.9 mEq/L (3.5-5.1); Sodium 137 mEq/L (136-145); eGFR For Non-African Americans > 60 (> 60)
[2018-10-16] MEDS: Ketoconazole 2% CRM 15 GM TUBE TP SCH ×2 (07:36→21:55)
[2018-10-16] MEDS: Aspirin Enteric Coated 81 MG Tablet PO SCH (07:36)
[2018-10-16] MEDS: Diltiazem CD (24hr) 240 MG CAPSULE PO SCH (07:36)
[2018-10-16] MEDS: *HR* Rivaroxaban 10 MG TABLET PO SCH (07:38)
[2018-10-16] MEDS: *HR* Digoxin 0.25 MG TABLET PO SCH (07:38)
[2018-10-16] MEDS: Fluticasone Propionate Nasal 50 MCG/SPRAY BOTTLE NS SCH (07:38)
[2018-10-16] MEDS: Gabapentin 300 MG CAPSULE PO SCH ×3 (07:38→21:55)
[2018-10-16] MEDS: Budesonide/Formoterol 160/4.5 1 PUFF INH IH SCH ×2 (07:47→22:24)
--- NOTE | 2018-10-16 11:29 | Internal Med Progress Note ---
<Yamila Tabares - Last Filed: 10/16/18 17:05> Hospitalist Progress Note - Encounter Date of Encounter: 10/16/18 - Exam Vitals: Temp Pulse Resp BP Pulse Ox 97.8 F 77 16 136/83 96 10/16/18 13:46 10/16/18 13:46 10/16/18 13:46 10/16/18 13:46 10/16/18 13:46 - Assessment and Plan (1) Sepsis Current Visit: No Status: Acute (2) Cellulitis of right lower extremity Current Visit: Yes Status: Acute (3) COPD (chronic obstructive pulmonary disease) Current Visit: Yes Status: Chronic (4) Afib Current Visit: Yes Status: Chronic (5) Diastolic CHF Current Visit: Yes Status: Chronic (6) Panniculitis Current Visit: Yes Status: Chronic (7) Anemia Current Visit: Yes Status: Chronic - Time Spent with Patient Total time spent is greater than 50% in coordination of care (as documented) at patient's floor/unit and/or counseling patient: Internal Medicine: Result - Labs CBC & Chem 7: 10/16/18 03:41 10/16/18 03:41 Labs: Short CBC 10/16/18 Range/Units 03:41 WBC 11.8 H (4.3-11.1) K/mcL Hgb 10.0 L (11.5-15.4) g/dL Hct 33.4 L (35.3-44.9) % Plt Count 209 (140-400) K/mcL Neutrophils # 8.5 (1.6-8.9) K/mcL BMP 10/16/18 03:41 Sodium 137 Potassium 3.9 Chloride 104 Carbon Dioxide 27 BUN 16 Creatinine 0.69 Glucose 111 H Calcium 8.9 - ABG Interpretation ABG results: PT/INR, D-dimer PT 14.4 Seconds (9.4-12.1) H 10/13/18 13:32 Consult Discharge Plan - Plan Referrals: Edouard Cole MD [Primary Care Provider] - - Attending Attestation I examined this patient and my medical decision-making was reviewed with the Resident Physician Dr Romeo. I agree with the documented findings, disposition and treatment plan as described except to the extent set forth below. Ms Lewis is admitted for sepsis 2/2 RLE cellulitis awake in bed, no fevers or chills, no n/v. no real change to extremity today, pain slowly improving gen- alert, awake,appears stated age cv-reg rate and reg rhythm, normal s1,s2, no murmurs appreciated, no pittling le edema lungs- ctabl, no wheezing, rhonchi or crackles, normal resp effort on ra skin- erythema RLE foot to below knee remains within marked area beefy red erythema near thigh, otherwise continued lessening of erythema msk- right knee without joint warmth, erythema or effusion noted neuro- AAOx3 Sepsis most likely 2/2 RLE Cellulitis- resolved IV vanc + zosyn (old cx results from LLE prior to requiring amputation reviewed and all were sensitive to Vanc) RLE Erythema/Edema 2/2 cellullitis- ruled out DVT given hx of clots while on AC in past, currently on xarelto -vanc + zosyn, wound cx right cherry small and no growth -XR right knee no acute findings (asx, however had to have L AKA in recent mons for infected artifical joint and has artificial joint by Dr Schmidt on right as well), ortho as needed pending results/course this admit paroxysmal Afib- on Xarelto, Dig, Diltiazem DVT LLE Hx on Xarelto Chronic diastolic CHF- hold home lasix given sepsis and IVF resuscitation, monitoring need for re initiation 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 No new or acute complaints. States her right leg continues to hurt to light palpation, but has improved. Denies any further fever or chills. Denies any diaphoresis. No chest pain, shortness of breath, abdominal pain, nausea, vomiting, urinary symptoms, or diarrhea. - Exam Vitals: Temp Pulse Resp BP Pulse Ox 97.7 F 90 17 121/68 95 10/16/18 10:30 10/16/18 10:30 10/16/18 10:30 10/16/18 10:30 10/16/18 10:30 Exam: General: obese female in no acute distress Head: normocephalic and atraumatic Eyes: PERRL, EOMI, sclera anicteric, conjunctiva pink Lungs: CTA bilaterally. Non-labored breathing on room air. No wheezes, rales, or rhonchi appreciated. Heart: RRR +S1 +S2 No murmurs, clicks, or rubs appreciated GI: abdomen soft, obese. normoactive bowel sounds Extremities: warm, radial pulses palpable and symmetrical. Significant edema with multiple bleeding excoriations and a small wound on anterior cherry with yellow drainage. Neuro: A&Ox3. no focal deficits. no speech difficulty or abnormality Skin: warm, dry, erythema of RLE improved from yesterday but remains persistent particularly on the upper thigh - Assessment and Plan (1) Sepsis Current Visit: Yes Status: Resolved Assessment and Plan: On admission pt met SIRS criteria with a source of infection: Right LE CT of right LE revealed: - Nonspecific soft tissue swelling of the right lower extremity, most prominent involving the dorsal aspect of the foot and ankle. No well-defined abscess identified. No evidence of necrotizing fasciitis CXR normal UA does not suggest UTI Pt does have significant hx of MRSA infection She received 2L IV fluids and heart rate subsequently normalized. Right knee XR form 10/15/18 redemonstrated nonspecific soft tissue edema Continue IV Vanc and Zosyn at this time (Day 4) Hold further IV fluids as she now appears euvolemic. Will monitor volume status closely with cardiac hx Blood cultures from 10/13/18 pending Wound culture pending at time (2) Cellulitis of right lower extremity Current Visit: Yes Status: Acute Assessment and Plan: See plan above. Continue antibiotics. LE doppler negative (3) COPD (chronic obstructive pulmonary disease) Current Visit: Yes Status: Chronic Assessment and Plan: Not in acute exacerbation Continue home meds (4) Afib Current Visit: Yes Status: Chronic Assessment and Plan: Afib anticoagulated on Xarelto. Currently rate controlled after 2L IV fluids Continue home medications: Digoxin 0.25mg and Diltiazem 240mg daily continue Xarelto Lopressor 5mg IVP Q6h prn for tachycardia continue telemetry (5) Diastolic CHF Current Visit: Yes Status: Chronic Assessment and Plan: BNP was 347 which is mildly elevated Not acutely short of breath compared to normal. Appeared hypovolemic on admission, but now appears euvolemic after 2L IV fluids for sepsis. Normally on Lasix 40 mg twice a day, will continue to hold for now but continue to monitor respiratory status closely Last echo 08/09/17 - EF 50-55%, indeterminate diastolic dysfunction. Successfully weaned off supplemental O2 at this time Continue to hold home Lasix No further IV fluids at this time Continue strict I&Os (6) Panniculitis Current Visit: Yes Status: Chronic Assessment and Plan: chronic. Ketoconazole cream 2% BID. (7) Anemia Current Visit: Yes Status: Chronic Assessment and Plan: Decreased from admission but stable Most likely dilutional Continue to monitor closely DVT Prophylaxis: on Xarelto - Time Spent with Patient Total time spent is greater than 50% in coordination of care (as documented) at patient's floor/unit and/or counseling patient: Internal Medicine: Result - Labs CBC & Chem 7: 10/16/18 03:41 10/16/18 03:41 Labs: Short CBC 10/16/18 Range/Units 03:41 WBC 11.8 H (4.3-11.1) K/mcL Hgb 10.0 L (11.5-15.4) g/dL Hct 33.4 L (35.3-44.9) % Plt Count 209 (140-400) K/mcL Neutrophils # 8.5 (1.6-8.9) K/mcL BMP 10/16/18 03:41 Sodium 137 Potassium 3.9 Chloride 104 Carbon Dioxide 27 BUN 16 Creatinine 0.69 Glucose 111 H Calcium 8.9 - ABG Interpretation ABG results: PT/INR, D-dimer PT 14.4 Seconds (9.4-12.1) H 10/13/18 13:32 - Impressions Impressions Knee X-Ray 10/15/18 11:36 IMPRESSION: 1. Redemonstration of nonspecific soft tissue edema about the knee. Correlate clinically for cellulitis. 2. Status post right total knee arthroplasty with no evidence for hardware failure or loosening. No acute fracture identified. D/ / Jasvir Daniel MD / Jasvir Daniel MD Interpreting Provider: Jasvir Daneil MD <Yamila Tabares - Last Filed: 10/16/18 17:05> (1) Sepsis Qualifiers: Sepsis type: sepsis due to unspecified organism Qualified Code(s): A41.9 - Sepsis, unspecified organism (3) COPD (chronic obstructive pulmonary disease) Qualifiers: COPD type: unspecified COPD Qualified Code(s): J44.9 - Chronic obstructive pulmonary disease, unspecified (4) Afib Qualifiers: Atrial fibrillation type: chronic Qualified Code(s): I48.2 - Chronic atrial fibrillation (5) Diastolic CHF Qualifiers: Heart failure chronicity: chronic Qualified Code(s): I50.32 - Chronic diastolic (congestive) heart failure (7) Anemia Qualifiers: Anemia type: iron deficiency Iron deficiency anemia type: inadequate dietary iron intake Qualified Code(s): D50.8 - Other iron deficiency anemias <Ahser Romeo A - Last Filed: 10/16/18 18:23> (1) Sepsis Qualifiers: Sepsis type: sepsis due to unspecified organism Qualified Code(s): A41.9 - Sepsis, unspecified organism (3) COPD (chronic obstructive pulmonary disease) Qualifiers: COPD type: unspecified COPD Qualified Code(s): J44.9 - Chronic obstructive pulmonary disease, unspecified (4) Afib Qualifiers: Atrial fibrillation type: chronic Qualified Code(s): I48.2 - Chronic atrial fibrillation (5) Diastolic CHF Qualifiers: Heart failure chronicity: chronic Qualified Code(s): I50.32 - Chronic diastolic (congestive) heart failure (7) Anemia Qualifiers: Anemia type: iron deficiency Iron deficiency anemia type: inadequate dietary iron intake Qualified Code(s): D50.8 - Other iron deficiency anemias
[2018-10-16] MEDS: *HR* HYDROcodone/Acet 5/325 mg TABLET PO PRN (15:56)
[2018-10-17 04:36] LABS: Basophils % 0.4 %; Eosinophils # 0.8 K/mcL (0.0-0.6); Eosinophils % 7.9 %; Hematocrit 33.5 % (35.3-44.9); Hemoglobin 10.2 g/dL (11.5-15.4); Immature Granulocytes % 1.5 % (0-4); Lymphocytes # 1.6 K/mcL (0.6-4.6); Lymphocytes % 14.9 %; Mean Corpuscular HGB Conc 30.4 g/dL (31.6-35.5); Mean Corpuscular Hemoglobin 24.5 pg (28.0-33.3); Mean Corpuscular Volume 80.3 fL (83.0-100.0); Mean Platelet Volume 10.3 fL (9.4-12.4); Monocytes # 0.7 K/mcL (0.0-1.3); Monocytes % 6.6 %; Neutrophils # 7.4 K/mcL (1.6-8.9); Platelet Count 281 K/mcL (140-400); Red Blood Count 4.17 M/mcL (3.82-4.97); Red Cell Distribution Width 19.8 % (11.5-14.5); Segmented Neutrophils % 68.7 %
[2018-10-17 04:52] LABS: BUN/Creatinine Ratio 23 (6-26); Blood Urea Nitrogen 14 mg/dL (8-23); Calcium 9.2 mg/dL (8.6-10.3); Carbon Dioxide 28 mEq/L (23-29); Chloride 104 mEq/L (98-107); Glucose 99 mg/dL (70-105); Osmolality,Calculated 291 (280-300); Phosphorous 3.5 mg/dL (2.7-4.5); Potassium 3.8 mEq/L (3.5-5.1); Sodium 140 mEq/L (136-145); eGFR For Non-African Americans > 60 (> 60)
[2018-10-17] MEDS: Piperacillin/Tazobactam 3.375 GM in 0.9 % Sodium Chloride Mini Bag 100 ML IVPB SCH ×2 (09:01→16:07)
[2018-10-17] MEDS: Aspirin Enteric Coated 81 MG Tablet PO SCH (09:01)
[2018-10-17] MEDS: *HR* Rivaroxaban 10 MG TABLET PO SCH (09:02)
[2018-10-17] MEDS: Diltiazem CD (24hr) 240 MG CAPSULE PO SCH (09:02)
[2018-10-17] MEDS: Gabapentin 300 MG CAPSULE PO SCH ×3 (09:02→21:39)
[2018-10-17] MEDS: Fluticasone Propionate Nasal 50 MCG/SPRAY BOTTLE NS SCH (09:02)
[2018-10-17] MEDS: Ketoconazole 2% CRM 15 GM TUBE TP SCH ×2 (09:03→21:39)
[2018-10-17] MEDS: *HR* Digoxin 0.25 MG TABLET PO SCH (09:03)
[2018-10-17] MEDS: Budesonide/Formoterol 160/4.5 1 PUFF INH IH SCH ×2 (09:42→20:33)
--- NOTE | 2018-10-17 10:40 | Internal Med Progress Note ---
<Nikita Archuleta - Last Filed: 10/17/18 16:24> Hospitalist Progress Note - Encounter Date of Encounter: 10/17/18 - Exam Vitals: Temp Pulse Resp BP Pulse Ox 98.5 F 86 22 118/97 96 10/17/18 07:17 10/17/18 07:17 10/17/18 09:48 10/17/18 07:17 10/17/18 09:48 - Assessment and Plan (1) Sepsis Current Visit: Yes Status: Resolved (2) Cellulitis of right lower extremity Current Visit: Yes Status: Acute (3) COPD (chronic obstructive pulmonary disease) Current Visit: Yes Status: Chronic (4) Afib Current Visit: Yes Status: Chronic (5) Diastolic CHF Current Visit: Yes Status: Chronic (6) Panniculitis Current Visit: Yes Status: Chronic (7) Anemia Current Visit: Yes Status: Chronic - Time Spent with Patient Total time spent is greater than 50% in coordination of care (as documented) at patient's floor/unit and/or counseling patient: Internal Medicine: Result - Labs CBC & Chem 7: 10/17/18 03:42 10/17/18 03:42 Labs: Short CBC 10/17/18 Range/Units 03:42 WBC 10.7 (4.3-11.1) K/mcL Hgb 10.2 L (11.5-15.4) g/dL Hct 33.5 L (35.3-44.9) % Plt Count 281 (140-400) K/mcL Neutrophils # 7.4 (1.6-8.9) K/mcL BMP 10/17/18 03:42 Sodium 140 Potassium 3.8 Chloride 104 Carbon Dioxide 28 BUN 14 Creatinine 0.61 Glucose 99 Calcium 9.2 - ABG Interpretation ABG results: PT/INR, D-dimer PT 14.4 Seconds (9.4-12.1) H 10/13/18 13:32 Consult Discharge Plan - Plan Referrals: Edouard Cole MD [Primary Care Provider] - - Attending Attestation I examined this patient and my medical decision-making was reviewed with the Resident Physician on 10/17/18. I agree with the documented findings, disposition and treatment plan as described except to the extent set forth below. Ms Lewis is currently admitted for cellulitis of RLE. She remains moderate to high risk due to potential for worsening clinical status. Ms Lewis is feeling OK. No fever or chills. No CP or SOB. Skin is very slowly improving. Exam alert Comfortable Mucus membranes dry Heart reg No wheeze RLE with erythema and induration Moves all extremities I/P 1. Sepsis - resolved 2. RLE cellulitis - on IV abx. Hx of MRSA infection. Will plan 7 days IV abx followed by 7 days of PO abx 3. Chronic a fib 4. CHF - chronic 5. COPD Further diagnoses and plan as above. <Asher Romeo - Last Filed: 10/17/18 18:04> Hospitalist Progress Note - Encounter Date of Encounter: 10/17/18 Time of Encounter: 10:39 - Subjective Interval History: Pt seen and examined at bedside. No new or acute complaints. States her right leg continues to hurt to light palpation, but has improved. Denies any fever or chills. Denies any diaphoresis. No chest pain, shortness of breath, abdominal pain, nausea, vomiting, urinary symptoms, or diarrhea. - Exam Vitals: Temp Pulse Resp BP Pulse Ox 98.5 F 86 22 118/97 96 10/17/18 07:17 10/17/18 07:17 10/17/18 09:48 10/17/18 07:17 10/17/18 09:48 Exam: General: obese female in no acute distress Head: normocephalic and atraumatic Eyes: PERRL, EOMI, sclera anicteric, conjunctiva pink Lungs: CTA bilaterally. Non-labored breathing on room air. No wheezes, rales, or rhonchi appreciated. Heart: RRR +S1 +S2 No murmurs, clicks, or rubs appreciated GI: abdomen soft, obese. normoactive bowel sounds Extremities: warm, radial pulses palpable and symmetrical. Significant edema with multiple bleeding excoriations and a small wound on anterior cherry with yellow drainage. Neuro: A&Ox3. no focal deficits. no speech difficulty or abnormality Skin: warm, dry, erythema of RLE improved from yesterday but remains persistent particularly on the upper thigh - Assessment and Plan (1) Sepsis Current Visit: Yes Status: Resolved Assessment and Plan: On admission pt met SIRS criteria with a source of infection: Right LE CT of right LE revealed: - Nonspecific soft tissue swelling of the right lower extremity, most prominent involving the dorsal aspect of the foot and ankle. No well-defined abscess identified. No evidence of necrotizing fasciitis CXR normal UA does not suggest UTI Pt does have significant hx of MRSA infection She received 2L IV fluids and heart rate subsequently normalized. Right knee XR form 10/15/18 redemonstrated nonspecific soft tissue edema Continue IV Vanc and Zosyn at this time (Day 5) Hold further IV fluids as she now appears euvolemic. Will monitor volume status closely with cardiac hx Blood cultures from 10/13/18 pending Wound culture pending at time (2) Cellulitis of right lower extremity Current Visit: Yes Status: Acute Assessment and Plan: See plan above. Continue antibiotics. LE doppler negative (3) COPD (chronic obstructive pulmonary disease) Current Visit: Yes Status: Chronic Assessment and Plan: Not in acute exacerbation Continue home meds (4) Afib Current Visit: Yes Status: Chronic Assessment and Plan: Afib anticoagulated on Xarelto. Currently rate controlled after 2L IV fluids Continue home medications: Digoxin 0.25mg and Diltiazem 240mg daily continue Xarelto Lopressor 5mg IVP Q6h prn for tachycardia continue telemetry (5) Diastolic CHF Current Visit: Yes Status: Chronic Assessment and Plan: BNP was 347 which is mildly elevated Not acutely short of breath compared to normal. Appeared hypovolemic on admission, but now appears euvolemic after 2L IV fluids for sepsis. Normally on Lasix 40 mg twice a day, will continue to hold for now but continue to monitor respiratory status closely Last echo 08/09/17 - EF 50-55%, indeterminate diastolic dysfunction. Successfully weaned off supplemental O2 at this time Continue to hold home Lasix No further IV fluids at this time Continue strict I&Os (6) Panniculitis Current Visit: Yes Status: Chronic Assessment and Plan: chronic. Ketoconazole cream 2% BID. (7) Anemia Current Visit: Yes Status: Chronic Assessment and Plan: Decreased from admission but stable Most likely dilutional Continue to monitor closely DVT Prophylaxis: on Xarelto - Time Spent with Patient Total time spent is greater than 50% in coordination of care (as documented) at patient's floor/unit and/or counseling patient: Internal Medicine: Result - Labs CBC & Chem 7: 10/17/18 03:42 10/17/18 03:42 Labs: Short CBC 10/17/18 Range/Units 03:42 WBC 10.7 (4.3-11.1) K/mcL Hgb 10.2 L (11.5-15.4) g/dL Hct 33.5 L (35.3-44.9) % Plt Count 281 (140-400) K/mcL Neutrophils # 7.4 (1.6-8.9) K/mcL BMP 10/17/18 03:42 Sodium 140 Potassium 3.8 Chloride 104 Carbon Dioxide 28 BUN 14 Creatinine 0.61 Glucose 99 Calcium 9.2 - ABG Interpretation ABG results: PT/INR, D-dimer PT 14.4 Seconds (9.4-12.1) H 10/13/18 13:32 <Nikita Archuleta A - Last Filed: 10/17/18 16:24> (1) Sepsis Qualifiers: Sepsis type: methicillin resistant Staphylococcus aureus Qualified Code(s): A41.02 - Sepsis due to Methicillin resistant Staphylococcus aureus (3) COPD (chronic obstructive pulmonary disease) Qualifiers: COPD type: unspecified COPD Qualified Code(s): J44.9 - Chronic obstructive pulmonary disease, unspecified (4) Afib Qualifiers: Atrial fibrillation type: chronic Qualified Code(s): I48.2 - Chronic atrial fibrillation (5) Diastolic CHF Qualifiers: Heart failure chronicity: chronic Qualified Code(s): I50.32 - Chronic diastolic (congestive) heart failure (7) Anemia Qualifiers: Anemia type: iron deficiency Iron deficiency anemia type: inadequate dietary iron intake Qualified Code(s): D50.8 - Other iron deficiency anemias <Asher Romeo A - Last Filed: 10/17/18 18:04> (1) Sepsis Qualifiers: Sepsis type: methicillin resistant Staphylococcus aureus Qualified Code(s): A41.02 - Sepsis due to Methicillin resistant Staphylococcus aureus (3) COPD (chronic obstructive pulmonary disease) Qualifiers: COPD type: unspecified COPD Qualified Code(s): J44.9 - Chronic obstructive pulmonary disease, unspecified (4) Afib Qualifiers: Atrial fibrillation type: chronic Qualified Code(s): I48.2 - Chronic atrial fibrillation (5) Diastolic CHF Qualifiers: Heart failure chronicity: chronic Qualified Code(s): I50.32 - Chronic diastolic (congestive) heart failure (7) Anemia Qualifiers: Anemia type: iron deficiency Iron deficiency anemia type: inadequate dietary iron intake Qualified Code(s): D50.8 - Other iron deficiency anemias
[2018-10-18] MEDS: Piperacillin/Tazobactam 3.375 GM in 0.9 % Sodium Chloride Mini Bag 100 ML IVPB SCH ×3 (01:10→17:27)
--- NOTE | 2018-10-18 08:26 | Internal Med Progress Note ---
<Asher Romeo - Last Filed: 10/18/18 17:39> Hospitalist Progress Note - Encounter Date of Encounter: 10/18/18 Time of Encounter: 10:15 - Subjective Interval History: Pt seen and examined at bedside. No new or acute complaints. States right leg pain has improved significantly and now she has noticed more frequent phantom pains from her left leg. Denies any fever, chills, chest pain, shortness of breath, abdominal pain, nausea, vomiting, headaches, numbness, or tingling. - Exam Vitals: Temp Pulse Resp BP Pulse Ox 97.5 F L 80 18 144/84 97 10/18/18 07:58 10/18/18 07:58 10/18/18 07:58 10/18/18 07:58 10/18/18 07:58 Exam: General: obese female in no acute distress Head: normocephalic and atraumatic Eyes: PERRL, EOMI, sclera anicteric, conjunctiva pink Lungs: CTA bilaterally. Non-labored breathing on room air. No wheezes, rales, or rhonchi appreciated. Heart: RRR +S1 +S2 No murmurs, clicks, or rubs appreciated GI: abdomen soft, obese. normoactive bowel sounds Extremities: warm, radial pulses palpable and symmetrical. Significant edema with multiple bleeding excoriations and a small wound on anterior cherry with yellow drainage. Edema and erythema of right leg improved significantly. Neuro: A&Ox3. no focal deficits. no speech difficulty or abnormality Skin: warm, dry, erythema of RLE improved significantly from yesterday but remains persistent on the upper thigh - Assessment and Plan (1) Sepsis Current Visit: Yes Status: Resolved Assessment and Plan: On admission pt met SIRS criteria with a source of infection: Right LE CT of right LE revealed: - Nonspecific soft tissue swelling of the right lower extremity, most prominent involving the dorsal aspect of the foot and ankle. No well-defined abscess abbi ntified. No evidence of necrotizing fasciitis CXR normal UA does not suggest UTI Pt does have significant hx of MRSA infection She received 2L IV fluids and heart rate subsequently normalized. Right knee XR form 10/15/18 redemonstrated nonspecific soft tissue edema Blood cultures x2 negative Wound culture preliminary growth of Staph aureus Continue IV Vanc and Zosyn at this time (Day 6) Hold further IV fluids as she now appears euvolemic. Will monitor volume status closely with cardiac hx (2) Cellulitis of right lower extremity Current Visit: Yes Status: Acute Assessment and Plan: See plan above. Continue antibiotics. LE doppler negative (3) COPD (chronic obstructive pulmonary disease) Current Visit: Yes Status: Chronic Assessment and Plan: Not in acute exacerbation Continue home meds (4) Afib Current Visit: Yes Status: Chronic Assessment and Plan: Afib anticoagulated on Xarelto. Currently rate controlled after 2L IV fluids Continue home medications: Digoxin 0.25mg and Diltiazem 240mg daily continue Xarelto Lopressor 5mg IVP Q6h prn for tachycardia continue telemetry (5) Diastolic CHF Current Visit: Yes Status: Chronic Assessment and Plan: BNP was 347 which is mildly elevated Not acutely short of breath compared to normal. Appeared hypovolemic on admission, but now appears euvolemic after 2L IV fluids for sepsis. Normally on Lasix 40 mg twice a day, will continue to hold for now but continue to monitor respiratory status closely Last echo 08/09/17 - EF 50-55%, indeterminate diastolic dysfunction. Successfully weaned off supplemental O2 at this time Continue to hold home Lasix No further IV fluids at this time Continue strict I&Os (6) Panniculitis Current Visit: Yes Status: Chronic Assessment and Plan: chronic. Ketoconazole cream 2% BID. (7) Anemia Current Visit: Yes Status: Chronic Assessment and Plan: Decreased from admission but stable Most likely dilutional Continue to monitor closely DVT Prophylaxis: on Xarelto - Time Spent with Patient Total time spent is greater than 50% in coordination of care (as documented) at patient's floor/unit and/or counseling patient: Internal Medicine: Result - Labs CBC & Chem 7: 10/18/18 08:49 10/18/18 08:49 - ABG Interpretation ABG results: PT/INR, D-dimer PT 14.4 Seconds (9.4-12.1) H 10/13/18 13:32 Consult Discharge Plan - Plan Referrals: Edouard Cole MD [Primary Care Provider] - <Nikita Archuleta - Last Filed: 10/18/18 18:08> Hospitalist Progress Note - Encounter Date of Encounter: 10/18/18 - Exam Vitals: Temp Pulse Resp BP Pulse Ox 97.5 F L 74 16 115/70 94 02/28/19 15:27 10/18/18 15:27 10/18/18 15:27 10/18/18 15:27 10/18/18 15:27 - Assessment and Plan (1) Sepsis Current Visit: Yes Status: Resolved (2) Cellulitis of right lower extremity Current Visit: Yes Status: Acute (3) COPD (chronic obstructive pulmonary disease) Current Visit: Yes Status: Chronic (4) Afib Current Visit: Yes Status: Chronic (5) Diastolic CHF Current Visit: Yes Status: Chronic (6) Panniculitis Current Visit: Yes Status: Chronic (7) Anemia Current Visit: Yes Status: Chronic - Time Spent with Patient Total time spent is greater than 50% in coordination of care (as documented) at patient's floor/unit and/or counseling patient: Internal Medicine: Result - Labs CBC & Chem 7: 10/18/18 08:49 10/18/18 08:49 Labs: Short CBC 10/18/18 Range/Units 08:49 WBC 10.8 (4.3-11.1) K/mcL Hgb 10.5 L (11.5-15.4) g/dL Hct 34.5 L (35.3-44.9) % Plt Count 362 (140-400) K/mcL Neutrophils # 7.9 (1.6-8.9) K/mcL BMP 10/18/18 08:49 Sodium 138 Potassium 4.2 Chloride 102 Carbon Dioxide 29 BUN 11 Creatinine 0.58 L Glucose 104 Calcium 9.1 - ABG Interpretation ABG results: PT/INR, D-dimer PT 14.4 Seconds (9.4-12.1) H 10/13/18 13:32 - Attending Attestation I examined this patient and my medical decision-making was reviewed with the Resident Physician on 10/18/18. I agree with the documented findings, dispo sition and treatment plan as described except to the extent set forth below. Ms Lewis is currently admitted for acute cellulitis. She remains moderate to high risk due to potential for worsening clinical status. Ms. Lewis feels OK. No fever or chills. Still has area of erythema on medial thigh but feels it is improving. Tolerating IV meds. Exam alert Comfortable Mucus membranes dry Heart irreg and not tachy No wheeze Abd soft RLE - erythema medial thigh - open but seems better Less erythema of lower leg Cx with few colonies of staph I/P 1. Cellulitis RLE - on IV Vancomycin - slowly improving. Anticipate IV till Monday then PO. 2. Sepsis resolved 3. COPD - not in exacerbation 4. Chronic a fib - rate controlled 5. Chronic diastolic CHF 6. anemia - following Further diagnoses and plan as above. <Asher Romeo A - Last Filed: 10/18/18 17:39> (1) Sepsis Qualifiers: Sepsis type: methicillin resistant Staphylococcus aureus Qualified Code(s): A41.02 - Sepsis due to Methicillin resistant Staphylococcus aureus (3) COPD (chronic obstructive pulmonary disease) Qualifiers: COPD type: unspecified COPD Qualified Code(s): J44.9 - Chronic obstructive pulmonary disease, unspecified (4) Afib Qualifiers: Atrial fibrillation type: chronic Qualified Code(s): I48.2 - Chronic atrial fibrillation (5) Diastolic CHF Qualifiers: Heart failure chronicity: chronic Qualified Code(s): I50.32 - Chronic diastolic (congestive) heart failure (7) Anemia Qualifiers: Anemia type: iron deficiency Iron deficiency anemia type: inadequate dietary iron intake Qualified Code(s): D50.8 - Other iron deficiency anemias <Nikita Archuleta A - Last Filed: 10/18/18 18:08> (1) Sepsis Qualifiers: Sepsis type: methicillin resistant Staphylococcus aureus Qualified Code(s): A41.02 - Sepsis due to Methicillin resistant Staphylococcus aureus (3) COPD (chronic obstructive pulmonary disease) Qualifiers: COPD type: unspecified COPD Qualified Code(s): J44.9 - Chronic obstructive pulmonary disease, unspecified (4) Afib Qualifiers: Atrial fibrillation type: chronic Qualified Code(s): I48.2 - Chronic atrial fibrillation (5) Diastolic CHF Qualifiers: Heart failure chronicity: chronic Qualified Code(s): I50.32 - Chronic diastolic (congestive) heart failure (7) Anemia Qualifiers: Anemia type: iron deficiency Iron deficiency anemia type: inadequate dietary iron intake Qualified Code(s): D50.8 - Other iron deficiency anemias
[2018-10-18 09:19] LABS: BUN/Creatinine Ratio 19 (6-26); Blood Urea Nitrogen 11 mg/dL (8-23); Calcium 9.1 mg/dL (8.6-10.3); Carbon Dioxide 29 mEq/L (23-29); Chloride 102 mEq/L (98-107); Glucose 104 mg/dL (70-105); Osmolality,Calculated 286 (280-300); Potassium 4.2 mEq/L (3.5-5.1); Sodium 138 mEq/L (136-145); eGFR For Non-African Americans > 60 (> 60)
[2018-10-18 09:22] LABS: Basophils # 0.1 K/mcL (0.0-0.2); Basophils % 0.6 %; Eosinophils # 0.8 K/mcL (0.0-0.6); Eosinophils % 7.1 %; Hematocrit 34.5 % (35.3-44.9); Hemoglobin 10.5 g/dL (11.5-15.4); Lymphocytes # 1.4 K/mcL (0.6-4.6); Lymphocytes % 12.9 %; Mean Corpuscular HGB Conc 30.4 g/dL (31.6-35.5); Mean Corpuscular Hemoglobin 24.4 pg (28.0-33.3); Mean Platelet Volume 9.6 fL (9.4-12.4); Monocytes # 0.5 K/mcL (0.0-1.3); Monocytes % 4.4 %; Neutrophils # 7.9 K/mcL (1.6-8.9); Platelet Count 362 K/mcL (140-400); Red Blood Count 4.31 M/mcL (3.82-4.97); Red Cell Distribution Width 19.9 % (11.5-14.5)
[2018-10-18] MEDS: Budesonide/Formoterol 160/4.5 1 PUFF INH IH SCH ×2 (09:29→21:45)
[2018-10-18] MEDS: Diltiazem CD (24hr) 240 MG CAPSULE PO SCH (09:55)
[2018-10-18] MEDS: *HR* Digoxin 0.25 MG TABLET PO SCH (09:55)
[2018-10-18] MEDS: Gabapentin 300 MG CAPSULE PO SCH ×3 (09:56→21:09)
[2018-10-18] MEDS: Aspirin Enteric Coated 81 MG Tablet PO SCH (09:56)
[2018-10-18] MEDS: *HR* Rivaroxaban 10 MG TABLET PO SCH (09:57)
[2018-10-18] MEDS: Fluticasone Propionate Nasal 50 MCG/SPRAY BOTTLE NS SCH (10:05)
[2018-10-18] MEDS: Ketoconazole 2% CRM 15 GM TUBE TP SCH ×2 (10:12→21:09)
[2018-10-19] MEDS: Piperacillin/Tazobactam 3.375 GM in 0.9 % Sodium Chloride Mini Bag 100 ML IVPB SCH ×4 (01:05→23:41)
[2018-10-19 06:12] LABS: Basophils # 0.1 K/mcL (0.0-0.2); Basophils % 0.5 %; Eosinophils # 0.8 K/mcL (0.0-0.6); Eosinophils % 8.4 %; Hematocrit 33.5 % (35.3-44.9); Hemoglobin 9.9 g/dL (11.5-15.4); Immature Granulocytes % 3.3 % (0-4); Lymphocytes # 1.5 K/mcL (0.6-4.6); Lymphocytes % 15.7 %; Mean Corpuscular HGB Conc 29.6 g/dL (31.6-35.5); Mean Corpuscular Hemoglobin 24.1 pg (28.0-33.3); Mean Corpuscular Volume 81.7 fL (83.0-100.0); Mean Platelet Volume 9.5 fL (9.4-12.4); Monocytes # 0.8 K/mcL (0.0-1.3); Neutrophils # 6.3 K/mcL (1.6-8.9); Platelet Count 348 K/mcL (140-400); Red Cell Distribution Width 19.6 % (11.5-14.5); Segmented Neutrophils % 64.1 %
[2018-10-19 06:29] LABS: BUN/Creatinine Ratio 17 (6-26); Blood Urea Nitrogen 11 mg/dL (8-23); Calcium 9.4 mg/dL (8.6-10.3); Carbon Dioxide 32 mEq/L (23-29); Chloride 101 mEq/L (98-107); Glucose 109 mg/dL (70-105); Osmolality,Calculated 284 (280-300); Potassium 4.5 mEq/L (3.5-5.1); Sodium 137 mEq/L (136-145); eGFR For Non-African Americans > 60 (> 60)
[2018-10-19] MEDS: Budesonide/Formoterol 160/4.5 1 PUFF INH IH SCH ×2 (07:34→19:29)
--- NOTE | 2018-10-19 08:46 | Internal Med Progress Note ---
Hospitalist Progress Note - Encounter Date of Encounter: 10/19/18 Time of Encounter: 08:46 - Subjective Interval History: Ms Lewis is currently admitted for cellulitis of RLE. She remains moderate to high risk at this time. Ms Lewis feels OK. No fever or chills. Leg continues to improve slowly. Remains on IV Vancomycin. No CP or SOB. No GI issues. - Exam Vitals: Temp Pulse Resp BP Pulse Ox 97.6 F 68 16 129/76 97 10/19/18 07:40 10/19/18 07:40 10/19/18 07:40 10/19/18 07:40 10/19/18 07:40 Exam: General: Obese female. Comfortable Head: normocephalic and atraumatic Eyes: PERRL, conjunctiva pink Lungs: CTA bilaterally. Heart: RRR. Not tachycardic GI: Abdomen nontender. Extremities: warm, RLE with improving erythema and excoriation. L BKA. Neuro: A&Ox3. no focal deficits. Skin: warm, dry, - Assessment and Plan (1) Sepsis Current Visit: Yes Status: Resolved Assessment and Plan: Resolved. (2) Cellulitis of right lower extremity Current Visit: Yes Status: Acute Assessment and Plan: Slowly improving with IV abx. Continue for 7 days then change to PO doxycycline at discharge. (3) COPD (chronic obstructive pulmonary disease) Current Visit: Yes Status: Chronic Assessment and Plan: Not in acute exacerbation Continue home meds (4) Afib Current Visit: Yes Status: Chronic Assessment and Plan: Afib anticoagulated on Xarelto. Continue home medications: Digoxin 0.25mg and Diltiazem 240mg daily continue Xarelto Not tachycardic at this time. (5) Diastolic CHF Current Visit: Yes Status: Chronic Assessment and Plan: Not in exacerbation at this time. (6) Panniculitis Current Visit: Yes Status: Chronic Assessment and Plan: chronic. Ketoconazole cream 2% BID. (7) Anemia Current Visit: Yes Status: Chronic Assessment and Plan: Has remained stable at this time. - Time Spent with Patient Total time spent is greater than 50% in coordination of care (as documented) at patient's floor/unit and/or counseling patient: Internal Medicine: Result - Labs CBC & Chem 7: 10/19/18 05:54 10/19/18 05:54 Labs: Short CBC 10/18/18 10/19/18 Range/Units 08:49 05:54 WBC 10.8 9.8 (4.3-11.1) K/mcL Hgb 10.5 L 9.9 L (11.5-15.4) g/dL Hct 34.5 L 33.5 L (35.3-44.9) % Plt Count 362 348 (140-400) K/mcL Neutrophils # 7.9 6.3 (1.6-8.9) K/mcL BMP 10/18/18 10/19/18 08:49 05:54 Sodium 138 137 Potassium 4.2 4.5 Chloride 102 101 Carbon Dioxide 29 32 H BUN 11 11 Creatinine 0.58 L 0.65 Glucose 104 109 H Calcium 9.1 9.4 - ABG Interpretation ABG results: PT/INR, D-dimer PT 14.4 Seconds (9.4-12.1) H 10/13/18 13:32 Consult Discharge Plan - Plan Referrals: Edouard Cole MD [Primary Care Provider] - ___ (1) Sepsis Qualifiers: Sepsis type: methicillin susceptible Staphylococcus aureus Qualified Code(s): A41.01 - Sepsis due to Methicillin susceptible Staphylococcus aureus (3) COPD (chronic obstructive pulmonary disease) Qualifiers: COPD type: unspecified COPD Qualified Code(s): J44.9 - Chronic obstructive pulmonary disease, unspecified (4) Afib Qualifiers: Atrial fibrillation type: chronic Qualified Code(s): I48.2 - Chronic atrial fibrillation (5) Diastolic CHF Qualifiers: Heart failure chronicity: chronic Qualified Code(s): I50.32 - Chronic diastolic (congestive) heart failure (7) Anemia Qualifiers: Anemia type: iron deficiency Iron deficiency anemia type: inadequate dietary iron intake Qualified Code(s): D50.8 - Other iron deficiency anemias
[2018-10-19] MEDS: Diltiazem CD (24hr) 240 MG CAPSULE PO SCH (10:40)
[2018-10-19] MEDS: *HR* Digoxin 0.25 MG TABLET PO SCH (10:40)
[2018-10-19] MEDS: Gabapentin 300 MG CAPSULE PO SCH ×3 (10:40→21:10)
[2018-10-19] MEDS: Aspirin Enteric Coated 81 MG Tablet PO SCH (10:40)
[2018-10-19] MEDS: *HR* Rivaroxaban 10 MG TABLET PO SCH (10:40)
[2018-10-19] MEDS: Ketoconazole 2% CRM 15 GM TUBE TP SCH ×2 (10:42→21:11)
[2018-10-19] MEDS: Fluticasone Propionate Nasal 50 MCG/SPRAY BOTTLE NS SCH (10:42)
[2018-10-19] MEDS: *HR* HYDROcodone/Acet 5/325 mg TABLET PO PRN (21:11)
[2018-10-20] MEDS: *HR* HYDROcodone/Acet 5/325 mg TABLET PO PRN (03:22)
[2018-10-20 05:07] LABS: Hematocrit 32.1 % (35.3-44.9); Hemoglobin 9.7 g/dL (11.5-15.4); Mean Corpuscular HGB Conc 30.2 g/dL (31.6-35.5); Mean Corpuscular Hemoglobin 24.6 pg (28.0-33.3); Mean Corpuscular Volume 81.5 fL (83.0-100.0); Mean Platelet Volume 9.8 fL (9.4-12.4); Platelet Count 419 K/mcL (140-400); Red Blood Count 3.94 M/mcL (3.82-4.97); Red Cell Distribution Width 19.6 % (11.5-14.5)
[2018-10-20 05:28] LABS: BUN/Creatinine Ratio 18 (6-26); Blood Urea Nitrogen 15 mg/dL (8-23); Calcium 9.4 mg/dL (8.6-10.3); Carbon Dioxide 31 mEq/L (23-29); Chloride 101 mEq/L (98-107); Glucose 92 mg/dL (70-105); Magnesium 1.9 mg/dL (1.6-2.6); Osmolality,Calculated 286 (280-300); Potassium 4.2 mEq/L (3.5-5.1); Sodium 138 mEq/L (136-145); eGFR For Non-African Americans > 60 (> 60)
[2018-10-20 07:27] VITALS: BP 138/67
--- NOTE | 2018-10-20 07:52 | Discharge Summary ---
<Nikita Archuleta - Last Filed: 10/20/18 16:36> Date of Encounter: 10/20/18 - Discharge Diagnosis (1) Sepsis Status: Resolved Qualifiers: Sepsis type: methicillin susceptible Staphylococcus aureus Qualified Code(s): A41.01 - Sepsis due to Methicillin susceptible Staphylococcus aureus (2) Cellulitis of right lower extremity Status: Acute (3) COPD (chronic obstructive pulmonary disease) Status: Chronic Qualifiers: COPD type: unspecified COPD Qualified Code(s): J44.9 - Chronic obstructive pulmonary disease, unspecified (4) Afib Status: Chronic Qualifiers: Atrial fibrillation type: chronic Qualified Code(s): I48.2 - Chronic atrial fibrillation (5) Diastolic CHF Status: Chronic Qualifiers: Heart failure chronicity: chronic Qualified Code(s): I50.32 - Chronic diastolic (congestive) heart failure (6) Panniculitis Status: Chronic (7) Anemia Status: Chronic Qualifiers: Anemia type: iron deficiency Iron deficiency anemia type: inadequate dietary iron intake Qualified Code(s): D50.8 - Other iron deficiency anemias (8) Bedbug bite Priority: Secondary Status: Acute Qualifiers: Encounter type: subsequent encounter Qualified Code(s): W57.XXXD - Bitten or stung by nonvenomous insect and other nonvenomous arthropods, subsequent encounter (9) Chronic diastolic CHF (congestive heart failure) Priority: Secondary Status: Chronic (10) HTN (hypertension) Priority: Secondary Status: Chronic Qualifiers: Hypertension type: essential hypertension Qualified Code(s): I10 - Essential (primary) hypertension (11) Tobacco abuse Priority: Secondary Status: Chronic (12) Morbid obesity with BMI of 45.0-49.9, adult Priority: Secondary Status: Chronic Hospital course: Ms. Lewis is a 68 year old female - Time Spent with Patient Total time spent providing and/or coordinating discharge services: 38min - Discharge Medications Prescriptions: New RX: Doxycycline 100 mg PO BID 3 Days #6 capsule RX: Ketoconazole 2% CRM [Nizoral Cream] 1 appl TP BID 14 Days #1 tube RX: Mupirocin [Bactroban Oint] 1 appl TP BID 14 Days #1 tube RX: Doxycycline 100 mg PO BID 3 Days #6 capsule Continue RX: Calcium Carbonate/Vitamin D3 [Oyster Shell Calcium-Vit D Tab] 500 mg PO BIDWM RX: Citalopram [CeleXA] 20 mg PO DAILY RX: Ferrous Sulfate 325 mg PO BID RX: Digoxin [Lanoxin] 0.25 mg PO DAILY RX: Aspirin Enteric Coated [Aspirin EC] 81 mg PO DAILY RX: Albuterol Sulfate [Ventolin Hfa] 2 puff IH Q6H PRN PRN Reason: Shortness Of Breath RX: Umeclidinium Downey [Incruse Ellipta] 62.5 mcg IH DAILY RX: Omeprazole [PriLOSEC] 40 mg PO DAILY RX: Furosemide [Lasix] 40 mg PO BID RX: Diltiazem HCl [Diltiazem ER] 240 mg PO DAILY RX: Budesonide/Formoterol 160/4.5 [Symbicort 160/4.5] 2 puff IH BID RX: Cholecalciferol (D-3) [Vitamin D] 1,000 unit PO DAILY tablet RX: Citalopram Hydrobromide [Citalopram HBr] 40 mg PO DAILY RX: Mv,Ca,Min/Iron Fum/FA/Lyco/Lut [Sentry Multivit & Mineral Cplt] 1 tab PO DAILY RX: Docusate Sodium [Colace] 100 mg PO BID PRN #30 capsule PRN Reason: Constipation RX: Rivaroxaban [Xarelto] 20 mg PO DAILY #0 RX: Acetaminophen w/Cod 300-30 mg [Tylenol w/Codeine #3] 1 each PO BID PRN PRN Reason: Pain RX: BuPROPion [Wellbutrin] 100 mg PO BID RX: Diclofenac Sodium [Voltaren] 1 appl TP TID PRN PRN Reason: Pain RX: DULoxetine [Cymbalta] 30 mg PO DAILY RX: Gabapentin 800 mg PO QID RX: Potassium Chloride [Klor-Con 10] 10 meq PO DAILY RX: NALOXONE 4 MG Nasal [place] [Narcan] 1 spray NS AD Home Medications: RX: Albuterol Sulfate [Ventolin Hfa] 2 puff IH Q6H PRN 03/13/16 [History] RX: Aspirin Enteric Coated [Aspirin EC] 81 mg PO DAILY 03/13/16 [History] RX: Calcium Carbonate/Vitamin D3 [Oyster Shell Calcium-Vit D Tab] 500 mg PO BIDWM 03/13/16 [History] RX: Citalopram [CeleXA] 20 mg PO DAILY 03/13/16 [History] RX: Digoxin [Lanoxin] 0.25 mg PO DAILY 03/13/16 [History] RX: Ferrous Sulfate 325 mg PO BID 03/13/16 [History] RX: Umeclidinium Downey [Incruse Ellipta] 62.5 mcg IH DAILY 08/01/16 [History] RX: Omeprazole [PriLOSEC] 40 mg PO DAILY 10/12/16 [History] RX: Diltiazem HCl [Diltiazem ER] 240 mg PO DAILY 05/03/17 [History] RX: Furosemide [Lasix] 40 mg PO BID 05/03/17 [History] RX: Budesonide/Formoterol 160/4.5 [Symbicort 160/4.5] 2 puff IH BID 06/19/17 [History] RX: Cholecalciferol (D-3) [Vitamin D] 1,000 unit PO DAILY tablet 12/28/17 [Rx] RX: Citalopram Hydrobromide [Citalopram HBr] 40 mg PO DAILY 04/03/18 [History] RX: Mv,Ca,Min/Iron Fum/FA/Lyco/Lut [Sentry Multivit & Mineral Cplt] 1 tab PO DAILY 07/19/18 [History] RX: Docusate Sodium [Colace] 100 mg PO BID PRN #30 capsule 07/21/18 [Rx] RX: Rivaroxaban [Xarelto] 20 mg PO DAILY #0 07/21/18 [Rx] RX: Acetaminophen w/Cod 300-30 mg [Tylenol w/Codeine #3] 1 each PO BID PRN 08/29/18 [History] RX: BuPROPion [Wellbutrin] 100 mg PO BID 10/15/18 [History] RX: DULoxetine [Cymbalta] 30 mg PO DAILY 10/15/18 [History] RX: Diclofenac Sodium [Voltaren] 1 appl TP TID PRN 10/15/18 [History] RX: Gabapentin 800 mg PO QID 10/15/18 [History] RX: NALOXONE 4 MG Nasal [place] [Narcan] 1 spray NS AD 10/15/18 [History] RX: Potassium Chloride [Klor-Con 10] 10 meq PO DAILY 10/15/18 [History] RX: Doxycycline 100 mg PO BID 3 Days #6 capsule 10/20/18 [Rx] RX: Doxycycline 100 mg PO BID 3 Days #6 capsule 10/20/18 [Rx] RX: Ketoconazole 2% CRM [Nizoral Cream] 1 appl TP BID 14 Days #1 tube 10/20/18 [Rx] RX: Mupirocin [Bactroban Oint] 1 appl TP BID 14 Days #1 tube 10/20/18 [Rx] Allergies/Adverse Reactions: Allergy/AdvReac Type Severity Reaction Status Date / Time lisinopril AdvReac Cough Verified 10/13/18 12:58 Date of admission: 10/13/18 16:13 Primary care physician: Edouard Cole MD Consults: 10/14/18 08:06 Consult to Occupational Therapy [CONS] Routine Comment: Evaluate, develop and implement POC Reason for Consult: evaulate and make recommendations Does patient have active BEDREST order?: No Is patient medically & hemodynamically stable?: Yes Patient assessed for mobility or mobilized this visit?: No Consult to Physical Therapy [CONS] Routine Comment: Evaluate, develop and implement POC Reason for Consult: evaluate and make recommendations Does patient have active BEDREST order?: No Is patient medically & hemodynamically stable?: Yes Patient assessed for mobility or mobilized this visit?: No Consult to Human Resources District Manager [CONS] Routine Reason for SW Consult: coordination of care, discharge needs - Constitutional Vitals: Temp Pulse Resp BP Pulse Ox 97.7 F 81 16 138/67 94 10/20/18 06:15 10/20/18 06:15 10/20/18 10:04 10/20/18 06:15 10/20/18 10:04 - Patient Status Disposition: Home Health Service Condition: Fair - Discharge Instructions Follow Up With: Edouard Cole MD [Primary Care Provider] - (Web-requested, the office will call the patient to schedule a follow up appointment. ) - Attending Attestation I examined this patient and my medical decision-making was reviewed with the Resident Physician on 10/20/18. I agree with the documented findings, disposition and treatment plan as described except to the extent set forth below. Ms Lewis has been admitted for sepsis related to cellulitis of her RLE. She has received 7 days of IV Vancomycin with improvement of her symptoms. She is now afebrile and ready for discharge home. Rash has improved with treatment. Exam Alert Comfortable RLE with less erythema and swellling Plan D/C home today Complete course of abx Follow up with PCP. <Asher Romeo Jeannine - Last Filed: 10/20/18 20:38> - NOTES TO OUTPATIENT PROVIDER Notes to Outpatient Provider: Ms. Lewis was admitted on 10/13/18 for right lower extremity cellulitis. Wound cultures grew MRSA. She received a 7 day course of IV Vancomycin. Erthema and edema of the right lower extremity improved significantly prior to discharge. Upon discharge she was given a prescription for 3 days of Doxycycline BID to complete a 10 day course of antibiotics. Recommend follow up with PCP 3-5 days after discharge. Date of Encounter: 10/20/18 Time of Encounter: 11:16 - Discharge Diagnosis (1) Sepsis Priority: Primary Status: Resolved Assessment and Plan: Resolved. Qualifiers: Sepsis type: methicillin susceptible Staphylococcus aureus Qualified Code(s): A41.01 - Sepsis due to Methicillin susceptible Staphylococcus aureus (2) Cellulitis of right lower extremity Priority: Primary Status: Acute Assessment and Plan: Slowly improving with IV abx. Continue for 7 days then change to PO doxycycline for remaining 3 days at discharge. (3) COPD (chronic obstructive pulmonary disease) Priority: Secondary Status: Chronic Assessment and Plan: Not in acute exacerbation Continue home meds Qualifiers: COPD type: unspecified COPD Qualified Code(s): J44.9 - Chronic obstructive pulmonary disease, unspecified (4) Afib Priority: Secondary Status: Chronic Assessment and Plan: Afib anticoagulated on Xarelto. Continue home medications: Digoxin 0.25mg and Diltiazem 240mg daily continue Xarelto Not tachycardic at this time. Qualifiers: Atrial fibrillation type: chronic Qualified Code(s): I48.2 - Chronic atrial fibrillation (5) Diastolic CHF Priority: Secondary Status: Chronic Assessment and Plan: Not in exacerbation at this time. Continue home meds Qualifiers: Heart failure chronicity: chronic Qualified Code(s): I50.32 - Chronic diastolic (congestive) heart failure (6) Panniculitis Priority: Secondary Status: Chronic Assessment and Plan: chronic. Ketoconazole cream 2% BID. (7) Anemia Priority: Secondary Status: Chronic Assessment and Plan: Has remained stable at this time. Qualifiers: Anemia type: iron deficiency Iron deficiency anemia type: inadequate dietary iron intake Qualified Code(s): D50.8 - Other iron deficiency anemias Hospital course: Ms. Lewis is a 68 year old female who was admitted for right lower extremity cellulitis. She received IV Vancomycin and Zosyn for a total of 7 days while admitted. The lower extremity erythema and edema improved significantly during this time. Culture grew MRSA. At time of discharge pt was given a prescription for remaining 3 days of Doxycycline to complete a 10 day course of antibiotics. Recommend follow up 3-5 days after discharge with PCP. Discharge discussed with: patient, nurse - Time Spent with Patient Total time spent providing and/or coordinating discharge services: Date of admission: 10/13/18 16:13 Primary care physician: Edouard Cole MD Consults: 10/14/18 08:06 Consult to Occupational Therapy [CONS] Routine Comment: Evaluate, develop and implement POC Reason for Consult: evaulate and make recommendations Does patient have active BEDREST order?: No Is patient medically & hemodynamically stable?: Yes Patient assessed for mobility or mobilized this visit?: No Consult to Physical Therapy [CONS] Routine Comment: Evaluate, develop and implement POC Reason for Consult: evaluate and make recommendations Does patient have active BEDREST order?: No Is patient medically & hemodynamically stable?: Yes Patient assessed for mobility or mobilized this visit?: No Consult to Human Resources District Manager [CONS] Routine Reason for SW Consult: coordination of care, discharge needs Discharging clinician: Asher Romeo - Constitutional Vitals: Temp Pulse Resp BP Pulse Ox 97.7 F 81 15 138/67 95 10/20/18 06:15 10/20/18 06:15 10/20/18 06:15 10/20/18 06:15 10/20/18 06:15 General appearance: Present: disheveled, A&O X 3, morbidly obese, no acute distress, answers questions appropriately Exam: General: obese female in no acute distress Head: normocephalic and atraumatic Eyes: PERRL, EOMI, sclera anicteric, conjunctiva pink Lungs: CTA bilaterally. Non-labored breathing on room air. No wheezes, rales, or rhonchi appreciated. Heart: RRR +S1 +S2 No murmurs, clicks, or rubs appreciated GI: abdomen soft, obese. normoactive bowel sounds Extremities: warm, radial pulses palpable and symmetrical. Significant edema with multiple bleeding excoriations and a small wound on anterior cherry with yellow drainage. Edema and erythema of right leg improved significantly. Neuro: A&Ox3. no focal deficits. no speech difficulty or abnormality Skin: warm, dry, erythema of RLE improved significantly from yesterday but remains persistent on the upper thigh - Patient Status Functional capacity at discharge: uses cane/walker Overall status at discharge: patient is back to baseline - Diet and Activity Activity: as per physical therapy, increase activity as tolerated, resume usual activities as tolerated Diet: low fat, low cholesterol, low salt diet
[2018-10-20] MEDS: Budesonide/Formoterol 160/4.5 1 PUFF INH IH SCH (10:04)
[2018-10-20] MEDS: Aspirin Enteric Coated 81 MG Tablet PO SCH (10:09)
[2018-10-20] MEDS: Diltiazem CD (24hr) 240 MG CAPSULE PO SCH (10:09)
[2018-10-20] MEDS: *HR* Rivaroxaban 10 MG TABLET PO SCH (10:09)
[2018-10-20] MEDS: Gabapentin 300 MG CAPSULE PO SCH (10:09)
[2018-10-20] MEDS: *HR* Digoxin 0.25 MG TABLET PO SCH (10:09)
[2018-10-20] MEDS: Piperacillin/Tazobactam 3.375 GM in 0.9 % Sodium Chloride Mini Bag 100 ML IVPB SCH (10:11)
[2018-10-20] MEDS: Fluticasone Propionate Nasal 50 MCG/SPRAY BOTTLE NS SCH (10:13)
[2018-10-20] MEDS: Ketoconazole 2% CRM 15 GM TUBE TP SCH (10:13)
--- NOTE | 2018-10-20 11:41 | Physician Discharge Referral ---
Home Health/Hosp Referral Info Transfer to: Home Health Provider in Charge Post Discharge: PCP - Diagnosis (1) Sepsis Priority: Secondary Status: Resolved (2) Cellulitis of right lower extremity Priority: Primary Status: Acute (3) COPD (chronic obstructive pulmonary disease) Priority: Primary Status: Chronic (4) Afib Priority: Primary Status: Chronic (5) Diastolic CHF Priority: Primary Status: Chronic (6) Panniculitis Priority: Secondary Status: Chronic (7) Anemia Priority: Secondary Status: Chronic - Respiratory Orders Oxygen / L per min (2 lpm) Smoking Cessation: Smoking cessation has been advised. For more information, call the [place] Tobacco Quit Line at 8-792-CGNX-NOW. - Diet/Nutrition Diet/Nutrition Orders: Cardiac - Activity Activity Orders: Up ad barrett, Ambulate - Services Needed Following services are medically necessary services: Nursing, Home Health Aide, Physical Therapy, Occupational Therapy - Transfer Medications Prescriptions: Doxycycline 100 mg PO BID 3 Days #6 capsule Ketoconazole 2% CRM [Nizoral Cream] 1 appl TP BID 14 Days #1 tube Mupirocin [Bactroban Oint] 1 appl TP BID 14 Days #1 tube Home Medications: Albuterol Sulfate [Ventolin Hfa] 2 puff IH Q6H PRN 03/13/16 [History] Aspirin Enteric Coated [Aspirin EC] 81 mg PO DAILY 03/13/16 [History] Calcium Carbonate/Vitamin D3 [Oyster Shell Calcium-Vit D Tab] 500 mg PO BIDWM 03/13/16 [History] Citalopram [CeleXA] 20 mg PO DAILY 03/13/16 [History] Digoxin [Lanoxin] 0.25 mg PO DAILY 03/13/16 [History] Ferrous Sulfate 325 mg PO BID 03/13/16 [History] Umeclidinium [place] [Incruse Ellipta] 62.5 mcg IH DAILY 08/01/16 [History] Omeprazole [PriLOSEC] 40 mg PO DAILY 10/12/16 [History] Diltiazem HCl [Diltiazem ER] 240 mg PO DAILY 05/03/17 [History] Furosemide [Lasix] 40 mg PO BID 05/03/17 [History] Budesonide/Formoterol 160/4.5 [Symbicort 160/4.5] 2 puff IH BID 06/19/17 [History] Cholecalciferol (D-3) [Vitamin D] 1,000 unit PO DAILY tablet 12/28/17 [Rx] Citalopram Hydrobromide [Citalopram HBr] 40 mg PO DAILY 04/03/18 [History] Mv,Ca,Min/Iron Fum/FA/Lyco/Lut [Sentry Multivit & Mineral Cplt] 1 tab PO DAILY 07/19/18 [History] Docusate Sodium [Colace] 100 mg PO BID PRN #30 capsule 07/21/18 [Rx] Rivaroxaban [Xarelto] 20 mg PO DAILY #0 07/21/18 [Rx] Acetaminophen w/Cod 300-30 mg [Tylenol w/Codeine #3] 1 each PO BID PRN 08/29/18 [History] BuPROPion [Wellbutrin] 100 mg PO BID 10/15/18 [History] DULoxetine [Cymbalta] 30 mg PO DAILY 10/15/18 [History] Diclofenac Sodium [Voltaren] 1 appl TP TID PRN 10/15/18 [History] Gabapentin 800 mg PO QID 10/15/18 [History] NALOXONE 4 MG Nasal [place] [Narcan] 1 spray NS AD 10/15/18 [History] Potassium Chloride [Klor-Con 10] 10 meq PO DAILY 10/15/18 [History] Doxycycline 100 mg PO BID 3 Days #6 capsule 10/20/18 [Rx] Ketoconazole 2% CRM [Nizoral Cream] 1 appl TP BID 14 Days #1 tube 10/20/18 [Rx] Mupirocin [Bactroban Oint] 1 appl TP BID 14 Days #1 tube 10/20/18 [Rx] Allergies/Adverse Reactions: Allergy/AdvReac Type Severity Reaction Status Date / Time lisinopril AdvReac Cough Verified 10/13/18 12:58 Certification: Further, I certify that my clinical findings support that this patient is h omebound (i.e. absences from home require considerable and taxing effort and are for medical reasons or scientologist services or infrequently or short duration when for other reasons) because: Homebound Reason: Patient requires assistance of a person or device to safely leave home, Leaving home requires considerable and taxing effort due to condition Attestation: My signature below is to certify that this patient is under my care and that I, or nurse practitioner, or a physician's transition assistant working with me, has a [id number] encounter with this patient.
== END 2018-10-20 13:42 | disposition home health service (06) | DRG 872 ==
LOC: EMEROOARM 12:52 → SUATTDRO 16:13 → 3ANU 16:13
PROVIDERS: ADMIT Internal Medicine; ATTEND Internal Medicine

== ENCOUNTER 2019-04-23 14:06 | Inpatient (IN) ==
[2019-04-23] MEDS ORDERED: 0.9 % Sodium Chloride 1,000 ML IVC ONE ×2 (14:55→17:00)
[2019-04-23] MEDS ORDERED: Ondansetron 4 MG/2 ML VIAL IVP ONE (15:15)
--- NOTE | 2019-04-23 15:19 | Emergency Department Note ---
Disposition Clinical Impression: Hydronephrosis with renal and ureteral calculous obstruction, Morbid obesity with BMI of 50.0-59.9, adult, Chronic atrial fibrillation UTI (urinary tract infection) Qualifiers: Urinary tract infection type: acute pyelonephritis Qualified Code(s): N10 - Acute pyelonephritis Sepsis Qualifiers: Sepsis type: sepsis due to unspecified organism Sepsis acute organ dysfunction status: without acute organ dysfunction Qualified Code(s): A41.9 - Sepsis, unspecified organism Atrial fibrillation Qualifiers: Atrial fibrillation type: chronic Qualified Code(s): I48.2 - Chronic atrial fibrillation Disposition: Admitted As Inpatient Time of Disposition: 17:27 General Adult HPI - General Chief complaint: ED Weakness Stated complaint: ill Time Seen by Provider: 04/23/19 14:54 Source: patient Limitations: no limitations Nursing Notes Reviewed: Yes Vital Signs Reviewed: Yes - History of Present Illness HPI Narrative: Ms. Lewis is a 68 yo F with PMH of CHF, A. fib (on xarelto), HTN, and COPD on 2L home O2, presents the emergency department with left upper quadrant pain radiating around the left flank that began this morning. Nothing seems to make the pain better or worse. Associated symptoms include chills, nausea, vomiting, and mild dyspnea. She reports over the past 2 weeks she has felt generalized weakness and fatigue. She has recently been having some transient, provoked dizziness, but states it is not bad currently. She denies fevers, vision changes, chest pain, cough, hematochezia, diarrhea, dysuria, hematuria, or changes in her edema. She denies any medications. Pain Scale: 10 - Related Data Home Medications Medication Instructions Recorded Confirmed Albuterol Sulfate [Ventolin Hfa] 2 puff IH Q6H PRN 03/13/16 04/23/19 Aspirin Enteric Coated [Aspirin EC] 81 mg PO DAILY 03/13/16 04/23/19 Calcium Carbonate/Vitamin D3 500 mg PO BIDWM 03/13/16 04/23/19 [Oyster Shell Calcium-Vit D Tab] Digoxin [Lanoxin] 0.25 mg PO DAILY 03/13/16 04/23/19 Ferrous Sulfate 325 mg PO BID 03/13/16 04/23/19 Umeclidinium [place] [Incruse 62.5 mcg IH DAILY 08/01/16 04/23/19 Ellipta] Omeprazole [PriLOSEC] 40 mg PO DAILY 10/12/16 04/23/19 Furosemide [Lasix] 40 mg PO BID 05/03/17 04/23/19 dilTIAZem HCl [Diltiazem 24Hr ER 240 mg PO DAILY 05/03/17 04/23/19 (Xr)] Budesonide/Formoterol 160/4.5 2 puff IH BID 06/19/17 04/23/19 [Symbicort 160/4.5] Mv,Jim,Min/Iron/Folic Acid/Lut 1 tab PO DAILY 07/19/18 04/23/19 [Sentry Multivit & Mineral Cplt] Acetaminophen w/Cod 300-30 mg 1 each PO BID PRN 08/29/18 04/23/19 [Tylenol w/Codeine #3] BuPROPion [Wellbutrin] 100 mg PO BID 10/15/18 04/23/19 DULoxetine [Cymbalta] 30 mg PO DAILY 10/15/18 04/23/19 Gabapentin 800 mg PO QID 10/15/18 04/23/19 Naloxone [Narcan] 1 spray NS AD 10/15/18 04/23/19 Potassium Chloride [Klor-Con 10] 10 meq PO DAILY 10/15/18 04/23/19 Previous Rx's Medication Instructions Recorded Cholecalciferol (D-3) [Vitamin D] 1,000 unit PO DAILY tablet 12/28/17 Docusate Sodium [Colace] 100 mg PO BID PRN #30 capsule 07/21/18 Rivaroxaban [Xarelto] 20 mg PO DAILY #0 07/21/18 Allergies Allergy/AdvReac Type Severity Reaction Status Date / Time lisinopril AdvReac Cough Verified 02/04/19 19:20 Review of Systems: Admits to LUQ pain, chills, nausea, vomiting, dyspnea, and generalized weakness. Denies fevers, vision changes, chest pain, cough, hematochezia, diarrhea, dysuria, hematuria, or changes in her edema Past Medical History - Past Medical History Medical history: Reports: atrial fibrillation, CHF, COPD, GERD, hyperlipidemia, hypertension, other Surgical history: Reports: knee replacement, other Psychiatric history: Reports: depression WAITER/WAITRESS BUFFET history: Reports: no WAITER/WAITRESS BUFFET history - Social History Smoking Status: Current every day smoker Smokeless Tobacco Status: Yes Alcohol use: Reports: none Drug use: Reports: none Physical Exam GEN: moderate distress, diaphoretic, obese, A&O3 HEAD: Atraumatic, normocephalic EYES: Pupils symmetric, no nystagmus, sclera white, conjunctiva pink HEART: Irregularly irregular, tachycardia, no murmurs LUNGS: Diminished in the bases, no wheezes, rhonchi, or crackles ABD: Soft, mild LLQ/LUQ tenderness, nondistended, no guarding or rigidity, + left CVA tenderness EXT: Bilateral +1 pitting edema noted, pulses 2/4, left BKA NEURO: No focal deficits, cooperative with exam, strength symmetric and equal in all extremities - General Limitations: no limitations General appearance: alert, in no apparent distress, other (Diaphoretic) - Head Head exam: atraumatic, normocephalic, normal inspection - Eye Eye exam: Present: normal appearance, PERRL, EOMI - ENT ENT exam: normal exam, normal oropharynx, mucous membranes moist, TM's normal bilaterally, normal external ear exam - Neck Neck exam: Present: normal inspection, full ROM, trachea midline - Chest Chest inspection: Present: symmetric chest wall rise. Absent: tenderness - Respiratory Respiratory exam: Present: normal lung sounds bilaterally. Absent: respiratory distress, prolonged expiratory phase - Cardiovascular Cardiovascular exam: Present: normal rhythm, tachycardia - Abdominal Exam Abdominal exam: Present: soft, Non-Tender, normal bowel sounds. Absent: tenderness, distention, guarding, rebound, rigidity - Extremities Exam Extremities exam: Absent: normal inspection (Left leg amputation, right lower extremity and upper extremities show no evidence of cyanosis edema or acute trauma.) - Expanded Lower Extremity Exam Neurovascular/Tendon exam: Present: normal capillary refill. Absent: motor deficit, sensory deficit, tendon deficit, extremity cold to touch, pallor - Back Exam Back exam: Present: normal inspection, full ROM, CVA tenderness (L). Absent: tenderness, CVA tenderness (R), vertebral tenderness - Neurological Exam Neurological exam: Present: alert, oriented X3, CN II-XII intact. Absent: motor sensory deficit - Psychiatric Psychiatric exam: Present: normal affect, normal mood - Skin Skin exam: Present: warm, intact, normal color. Absent: dry (Sweaty) Course Vital Signs Temperature 99.9 F H 04/23/19 14:09 Pulse Rate 105 04/23/19 14:09 Respiratory Rate 22 04/23/19 14:09 Blood Pressure 119/83 04/23/19 14:09 O2 Sat by Pulse Oximetry 96 04/23/19 14:09 Temperature 99.9 F H 04/23/19 14:09 Pulse Rate 125 04/23/19 15:29 Respiratory Rate 22 04/23/19 15:29 Blood Pressure 105/51 04/23/19 15:29 O2 Sat by Pulse Oximetry 62 04/23/19 15:29 Oxygen Delivery Oxygen Delivery Nasal Cannula Medical Decision Making - MDM Narrative Medical decision making narrative: Patient is tachycardic and tachypneic. Her history and exam are concerning for pyelonephritis. She is WBC of 26, lactic acid 3.3, CRP 37, and CT shows a left- sided 1.4 cm obstructing stone. UA with + nitrites and leuk esterase. Magnesium was low and replace the ED. Chest x-ray shows vascular congestion, without any pulmonary edema or consolidation. EKG shows A. fib, heart rate of 122, with ST depressions in I, II, avF, and V2-6 which is consistent with prior ECGs. She meet sepsis criteria. She was given 2 L normal saline, and 2 g of Rocephin here in the emergency department. She is given 2 mg of IV morphine. Discussed the case with the on-call urologist, Dr. Maria, who presented to the emergency department and evaluated the patient at bedside. He reports he would like the patient take the patient directly to the OR from the ED if able. Discussed the case with the admitting hospitalist, Dr. Renteria, who is accepting of the patient. Dr. Reyes: I personally evaluated the patient with the resident and agree with their findings assessment and plan. I spent direct [id number] time with the patient. The patient seems to be diaphoretic tachycardic and has a low-grade temp. Elevated white blood cell count, abnormal urinalysis, and elevated lactic acid noted. The patient appears to be septic. Left-sided kidney stone is noted with obstruction, urology was consult and evaluated the patient emergency department. The patient is being admitted to the hospitalist for further evaluation. Rocephin was given IV. IV fluids were also given. Blood cultures and urine cultures were sent. The patient is currently stable pending admission to the hospital for further evaluation and management via the medical and urologic specialty teams. - Lab Data Lab results reviewed: Yes I reviewed the patient's lab results. Result diagrams: 04/23/19 15:06 04/23/19 15:06 Lab Results 04/23/19 04/23/19 04/23/19 Range/Units 14:20 14:20 15:06 WBC 26.1 H (4.3-11.1) K/mcL RBC 5.24 H (3.82-4.97) M/mcL Hgb 13.8 (11.5-15.4) g/dL Hct 44.1 (35.3-44.9) % MCV 84.2 (83.0-100.0) fL MCH 26.3 L (28.0-33.3) pg MCHC 31.3 L (31.6-35.5) g/dL RDW 14.3 (11.5-14.5) % Plt Count 269 (140-400) K/mcL MPV 9.7 (9.4-12.4) fL Immature Gran % 1.6 (0-4) % Seg Neutrophils % 93.7 % Lymphocytes % 1.8 % Monocytes % 2.7 % Eosinophils % 0.0 % Basophils % 0.2 % Neutrophils # 24.5 H (1.6-8.9) K/mcL Lymphocytes # 0.5 L (0.6-4.6) K/mcL Monocytes # 0.7 (0.0-1.3) K/mcL Eosinophils # 0.0 (0.0-0.6) K/mcL Basophils # 0.1 (0.0-0.2) K/mcL PT (9.4-12.1) Seconds INR APTT (26.0-36.0) Seconds Sodium (136-145) mEq/L Potassium (3.5-5.1) mEq/L Chloride (98-107) mEq/L Carbon Dioxide (23-29) mEq/L BUN (8-23) mg/dL Creatinine (0.60-1.20) mg/dL Est GFR ( Amer) (> 60) Est GFR (Non-Af Amer) (> 60) BUN/Creatinine Ratio (6-26) Glucose (70-105) mg/dL Calculated Osmolality (280-300) Lactic Acid (0.5-2.2) mmol/L Calcium (8.6-10.3) mg/dL Phosphorus (2.7-4.5) mg/dL Magnesium (1.6-2.6) mg/dL Total Bilirubin (0.3-1.0) mg/dL Direct Bilirubin (0.0-0.2) mg/dL Indirect Bilirubin (0.0-1.2) mg/dL AST (13-39) Units/L ALT (7-52) Units/L Alkaline Phosphatase (34-104) Units/L Troponin I (< 0.04) ng/mL C-Reactive Protein (Less than 10) mg/L B-Natriuretic Peptide 238 H (Less than 100) pg/mL Serum Total Protein (6.4-8.9) g/dL Albumin (3.5-5.7) g/dL Globulin (2.4-3.5) g/dL Albumin/Globulin Ratio (1.1-2.2) Urine Color (Yellow) Urine Clarity (Clear) Urine pH (5.0-8.0) pH Units Ur Specific [place] (1.010-1.025) Urine Protein (Neg-Trace) mg/dL Urine Glucose (UA) (Normal) mg/dL Urine Ketones (Negative) mg/dL Urine Blood (Negative) Urine Nitrite (Negative) Urine Bilirubin (Negative) Urine Urobilinogen (Normal) mg/dL Ur Leukocyte Esterase (Negative) Urine Microscopic RBC (0-3) per hpf Urine Microscopic WBC (0-3) per hpf Ur Squamous Epith Cells (None-Few) per lpf Urine Bacteria (None-Few) per hpf Hyaline Casts (None-Few) per lpf Ur Culture Indicated? (NO) Digoxin 1.0 (0.8-2.0) ng/mL 04/23/19 04/23/19 04/23/19 Range/Units 15:06 15:06 15:06 WBC (4.3-11.1) K/mcL RBC (3.82-4.97) M/mcL Hgb (11.5-15.4) g/dL Hct (35.3-44.9) % MCV (83.0-100.0) fL MCH (28.0-33.3) pg MCHC (31.6-35.5) g/dL RDW (11.5-14.5) % Plt Count (140-400) K/mcL MPV (9.4-12.4) fL Immature Gran % (0-4) % Seg Neutrophils % % Lymphocytes % % Monocytes % % Eosinophils % % Basophils % % Neutrophils # (1.6-8.9) K/mcL Lymphocytes # (0.6-4.6) K/mcL Monocytes # (0.0-1.3) K/mcL Eosinophils # (0.0-0.6) K/mcL Basophils # (0.0-0.2) K/mcL PT 20.8 H (9.4-12.1) Seconds INR 1.8 APTT 39.8 H (26.0-36.0) Seconds Sodium 137 (136-145) mEq/L Potassium 4.0 (3.5-5.1) mEq/L Chloride 100 (98-107) mEq/L Carbon Dioxide 25 (23-29) mEq/L BUN 17 (8-23) mg/dL Creatinine 1.12 (0.60-1.20) mg/dL Est GFR ( Amer) 59 L (> 60) Est GFR (Non-Af Amer) 48 L (> 60) BUN/Creatinine Ratio 15 (6-26) Glucose 127 H (70-105) mg/dL Calculated Osmolality 287 (280-300) Lactic Acid 3.3 H (0.5-2.2) mmol/L Calcium 9.4 (8.6-10.3) mg/dL Phosphorus 1.9 L (2.7-4.5) mg/dL Magnesium 1.3 L (1.6-2.6) mg/dL Total Bilirubin 0.5 (0.3-1.0) mg/dL Direct Bilirubin 0.1 (0.0-0.2) mg/dL Indirect Bilirubin 0.4 (0.0-1.2) mg/dL AST 18 (13-39) Units/L ALT 16 (7-52) Units/L Alkaline Phosphatase 82 (34-104) Units/L Troponin I < 0.03 (< 0.04) ng/mL C-Reactive Protein (Less than 10) mg/L B-Natriuretic Peptide (Less than 100) pg/mL Serum Total Protein 7.0 (6.4-8.9) g/dL Albumin 4.1 (3.5-5.7) g/dL Globulin 2.9 (2.4-3.5) g/dL Albumin/Globulin Ratio 1.4 (1.1-2.2) Urine Color (Yellow) Urine Clarity (Clear) Urine pH (5.0-8.0) pH Units Ur Specific [place] (1.010-1.025) Urine Protein (Neg-Trace) mg/dL Urine Glucose (UA) (Normal) mg/dL Urine Ketones (Negative) mg/dL Urine Blood (Negative) Urine Nitrite (Negative) Urine Bilirubin (Negative) Urine Urobilinogen (Normal) mg/dL Ur Leukocyte Esterase (Negative) Urine Microscopic RBC (0-3) per hpf Urine Microscopic WBC (0-3) per hpf Ur Squamous Epith Cells (None-Few) per lpf Urine Bacteria (None-Few) per hpf Hyaline Casts (None-Few) per lpf Ur Culture Indicated? (NO) Digoxin (0.8-2.0) ng/mL 04/23/19 04/23/19 Range/Units 15:06 15:44 WBC (4.3-11.1) K/mcL RBC (3.82-4.97) M/mcL Hgb (11.5-15.4) g/dL Hct (35.3-44.9) % MCV (83.0-100.0) fL MCH (28.0-33.3) pg MCHC (31.6-35.5) g/dL RDW (11.5-14.5) % Plt Count (140-400) K/mcL MPV (9.4-12.4) fL Immature Gran % (0-4) % Seg Neutrophils % % Lymphocytes % % Monocytes % % Eosinophils % % Basophils % % Neutrophils # (1.6-8.9) K/mcL Lymphocytes # (0.6-4.6) K/mcL Monocytes # (0.0-1.3) K/mcL Eosinophils # (0.0-0.6) K/mcL Basophils # (0.0-0.2) K/mcL PT (9.4-12.1) Seconds INR APTT (26.0-36.0) Seconds Sodium (136-145) mEq/L Potassium (3.5-5.1) mEq/L Chloride (98-107) mEq/L Carbon Dioxide (23-29) mEq/L BUN (8-23) mg/dL Creatinine (0.60-1.20) mg/dL Est GFR ( Amer) (> 60) Est GFR (Non-Af Amer) (> 60) BUN/Creatinine Ratio (6-26) Glucose (70-105) mg/dL Calculated Osmolality (280-300) Lactic Acid (0.5-2.2) mmol/L Calcium (8.6-10.3) mg/dL Phosphorus (2.7-4.5) mg/dL Magnesium (1.6-2.6) mg/dL Total Bilirubin (0.3-1.0) mg/dL Direct Bilirubin (0.0-0.2) mg/dL Indirect Bilirubin (0.0-1.2) mg/dL AST (13-39) Units/L ALT (7-52) Units/L Alkaline Phosphatase (34-104) Units/L Troponin I (< 0.04) ng/mL C-Reactive Protein 37 H (Less than 10) mg/L B-Natriuretic Peptide (Less than 100) pg/mL Serum Total Protein (6.4-8.9) g/dL Albumin (3.5-5.7) g/dL Globulin (2.4-3.5) g/dL Albumin/Globulin Ratio (1.1-2.2) Urine Color Yellow (Yellow) Urine Clarity Cloudy A (Clear) Urine pH 5.5 (5.0-8.0) pH Units Ur Specific [place] 1.019 (1.010-1.025) Urine Protein 30 H (Neg-Trace) mg/dL Urine Glucose (UA) Normal (Normal) mg/dL Urine Ketones Negative (Negative) mg/dL Urine Blood Large H (Negative) Urine Nitrite Positive A (Negative) Urine Bilirubin Negative (Negative) Urine Urobilinogen Normal (Normal) mg/dL Ur Leukocyte Esterase Moderate H (Negative) Urine Microscopic RBC 5-15 H (0-3) per hpf Urine Microscopic WBC 50-100 H (0-3) per hpf Ur Squamous Epith Cells Many H (None-Few) per lpf Urine Bacteria Many H (None-Few) per hpf Hyaline Casts None Seen (None-Few) per lpf Ur Culture Indicated? YES A (NO) Digoxin (0.8-2.0) ng/mL - Radiology Data Radiology results reviewed: Yes I reviewed the patient's radiology results. - EKG Data EKG #1 EKG results narrative: EKG with A. fib, heart rate 122, ST depressions in I, II, avF, V2-6, that is consistent with old ECGs
[2019-04-23 15:24] LABS: Basophils % 0.2 %; Hemoglobin 13.8 g/dL (11.5-15.4); Monocytes % 2.7 %
[2019-04-23 15:25] LABS: Hematocrit 44.1 % (35.3-44.9); Immature Granulocytes % 1.6 % (0-4); Lymphocytes # 0.5 K/mcL (0.6-4.6); Lymphocytes % 1.8 %; Mean Corpuscular HGB Conc 31.3 g/dL (31.6-35.5); Mean Corpuscular Hemoglobin 26.3 pg (28.0-33.3); Mean Corpuscular Volume 84.2 fL (83.0-100.0); Mean Platelet Volume 9.7 fL (9.4-12.4); Monocytes # 0.7 K/mcL (0.0-1.3); Neutrophils # 24.5 K/mcL (1.6-8.9); Platelet Count 269 K/mcL (140-400); Red Blood Count 5.24 M/mcL (3.82-4.97); Red Cell Distribution Width 14.3 % (11.5-14.5); Segmented Neutrophils % 93.7 %; White Blood Count 26.1 K/mcL (4.3-11.1)
[2019-04-23] MEDS ORDERED: Isovue-370 500 ML BOTTLE IVP ONE (15:25)
[2019-04-23] MEDS ORDERED: Ipratropium/Albuterol Neb 3 ML IH ONE (15:44)
[2019-04-23 15:47] LABS: Basophils # 0.1 K/mcL (0.0-0.2); INR 1.8; Prothrombin Time 20.8 Seconds (9.4-12.1)
[2019-04-23 15:49] LABS: Activated Partial Thrombo Time 39.8 Seconds (26.0-36.0)
[2019-04-23 15:50] LABS: Alanine Aminotransferase 16 Units/L (7-52); Albumin 4.1 g/dL (3.5-5.7); Albumin/Globulin Ratio 1.4 (1.1-2.2); Alkaline Phosphatase 82 Units/L (34-104); Aspartate Amino Transferase 18 Units/L (13-39); BUN/Creatinine Ratio 15 (6-26); Bilirubin,Direct 0.1 mg/dL (0.0-0.2); Bilirubin,Indirect 0.4 mg/dL (0.0-1.2); Bilirubin,Total 0.5 mg/dL (0.3-1.0); Blood Urea Nitrogen 17 mg/dL (8-23); Calcium 9.4 mg/dL (8.6-10.3); Carbon Dioxide 25 mEq/L (23-29); Chloride 100 mEq/L (98-107); Globulin 2.9 g/dL (2.4-3.5); Glucose 127 mg/dL (70-105); Magnesium 1.3 mg/dL (1.6-2.6); Osmolality,Calculated 287 (280-300); Phosphorous 1.9 mg/dL (2.7-4.5); Sodium 137 mEq/L (136-145); Troponin I < 0.03 ng/mL (< 0.04); eGFR For African Americans 59 (> 60); eGFR For Non-African Americans 48 (> 60)
[2019-04-23 16:00] LABS: Bilirubin,Urine Negative (Negative); Blood,Urine Large (Negative); Clarity,Urine Cloudy (Clear); Color,Urine Yellow (Yellow); Glucose,Urine (UA) Normal (Normal); Ketones,Urine Negative (Negative); Leukocyte Esterase,Urine Moderate (Negative); Nitrite,Urine Positive (Negative); PH,Urine 5.5 pH Units (5.0-8.0); Protein,Urine 30 mg/dL (Neg-Trace); Specific Gravity,Urine 1.019 (1.010-1.025); Urobilinogen,Urine Normal (Normal)
[2019-04-23 16:03] LABS: Bacteria,Urine Many per hpf (None-Few); Hyaline Casts,Urine None Seen per lpf (None-Few); Squamous Epithelial Cell,Urine Many per lpf (None-Few); WBC,Urine 50-100 per hpf (0-3)
[2019-04-23] MEDS ORDERED: cefTRIAXone 1,000 MG in Water for inj. (sterile) 10 ML IVP ONE ×2 (16:42→17:00)
[2019-04-23] MEDS ORDERED: Morphine Sulfate 2 MG/ML SYRINGE IVP ONE (17:12)
[2019-04-23] MEDS ORDERED: Isovue-300 50 ML VIAL ONE (17:42)
--- NOTE | 2019-04-23 17:42 | Urology - Consult Note ---
Date of Encounter: 04/23/19 Time of Encounter: 17:40 - Assessment and Plan (1) Hydronephrosis with renal and ureteral calculous obstruction Current Visit: Yes Status: Acute Assessment and plan: Patient has significant signs of sepsis. Labs show a white cell count of 27,000 with shift. Lactic acid is elevated. We will proceed with cystoscopy, retrograde pyelogram and stent placement tonight. She will require staged management of the stone at a later date when she stabilizes. Patient was seen and evaluated in the emergency room. (2) Sepsis Current Visit: Yes Status: Acute Assessment and plan: Patient likely has urosepsis. We will verify blood cultures up and drawn. She may also require 2North or ICU management depending on her response to having the stent placed. She has significant comorbidities including COPD and A. fib that may complicate her recovery. She is aware of this risk. Qualifiers: Sepsis type: sepsis due to unspecified organism Sepsis acute organ dysfunct ion status: without acute organ dysfunction Qualified Code(s): A41.9 - Sepsis, unspecified organism Urology CN:HPI Consult date: 04/23/19 Reason for consult Urology: Hydronephrosis History of present illness: 68-year-old female. Presented to the emergency room for acute illness and left flank pain. She states she believes she is running a fever at home but did not take her temperature. She has had increased fatigue. States "I just feel well" she has had nausea without vomiting. She was able to drink a small amount of cola around noon. In the emergency room her CT scan shows a 1.4 cm obstructing left ureteral stone with significant hydronephrosis. No blood cell count is elevated 27,000. Neutrophils elevated. Lactic acid elevated. Urinalysis concerning for UTI Past Med Surg Social Fam HX - Past Medical History Medical history: atrial fibrillation, CHF, COPD, GERD, hyperlipidemia, hypertension, other Additional medical history: sleep apnea, DVT left leg,. Psychiatric history: depression - Past Surgical History Surgical History: knee replacement, other Additional surgical history: Left BKA - Social History Smoking Status: Current every day smoker Smokeless Tobacco Status: Yes Alcohol use: none Drug use: none - Family History Mother Adopted: No Family Member Ethnicity: Non- Living Status: Hx Family Cardiac Disorders: Yes (TIAs, CVA, HTN) Hx Family Respiratory Disorders: Yes Hx Family Cancer: Yes Hx Family GI Disorders: No Hx Family Endocrine Disorder: Yes Hx Family Neuromuscular Disorders: No Hx Family Neurologic Disorders: No Hx Family HEENT Disorders: No Hx Family Autoimmune Disorders: No Father Family Member Ethnicity: Non- Living Status: Hx Family Cardiac Disorders: Yes Hx Family Respiratory Disorders: Yes Hx Family Cancer: Yes (Stomach) Hx Family GI Disorders: No Hx Family Endocrine Disorder: No Hx Family Neuromuscular Disorders: Yes Hx Family Neurologic Disorders: Yes Hx Family HEENT Disorders: No Hx Family Autoimmune Disorders: No Brother Adopted: No Family Member Ethnicity: Non- Living Status: Still Living Hx Family Cardiac Disorders: Yes Hx Family Respiratory Disorders: No Hx Family Cancer: No Hx Family GI Disorders: No Hx Family Endocrine Disorder: Yes Hx Family Neuromuscular Disorders: No Hx Family Neurologic Disorders: Yes Hx Family HEENT Disorders: No Hx Family Autoimmune Disorders: No Sister Adopted: No Family Member Ethnicity: Non- Living Status: Still Living Hx Family Cardiac Disorders: Yes (HTN) Hx Family Respiratory Disorders: Yes (COPD, ASTHMA) Hx Family Cancer: No Hx Family GI Disorders: No Hx Family Endocrine Disorder: No Hx Family Neuromuscular Disorders: No Hx Family Neurologic Disorders: No Hx Family HEENT Disorders: No Hx Family Autoimmune Disorders: No Medications and Allergies Albuterol Sulfate [Ventolin Hfa] 2 puff IH Q6H PRN 03/13/16 [History] Aspirin Enteric Coated [Aspirin EC] 81 mg PO DAILY 03/13/16 [History] Calcium Carbonate/Vitamin D3 [Oyster Shell Calcium-Vit D Tab] 500 mg PO BIDWM 03/13/16 [History] Digoxin [Lanoxin] 0.25 mg PO DAILY 03/13/16 [History] Ferrous Sulfate 325 mg PO BID 03/13/16 [History] Umeclidinium [place] [Incruse Ellipta] 62.5 mcg IH DAILY 08/01/16 [History] Omeprazole [PriLOSEC] 40 mg PO DAILY 10/12/16 [History] Furosemide [Lasix] 40 mg PO BID 05/03/17 [History] dilTIAZem HCl [Diltiazem 24Hr ER (Xr)] 240 mg PO DAILY 05/03/17 [History] Budesonide/Formoterol 160/4.5 [Symbicort 160/4.5] 2 puff IH BID 06/19/17 [History] Cholecalciferol (D-3) [Vitamin D] 1,000 unit PO DAILY tablet 12/28/17 [Rx] Mv,Jim,Min/Iron/Folic Acid/Lut [Sentry Multivit & Mineral Cplt] 1 tab PO DAILY 07/19/18 [History] Docusate Sodium [Colace] 100 mg PO BID PRN #30 capsule 07/21/18 [Rx] Rivaroxaban [Xarelto] 20 mg PO DAILY #0 07/21/18 [Rx] Acetaminophen w/Cod 300-30 mg [Tylenol w/Codeine #3] 1 each PO BID PRN 08/29/18 [History] BuPROPion [Wellbutrin] 100 mg PO BID 10/15/18 [History] DULoxetine [Cymbalta] 30 mg PO DAILY 10/15/18 [History] Gabapentin 800 mg PO QID 10/15/18 [History] Naloxone [Narcan] 1 spray NS AD 10/15/18 [History] Potassium Chloride [Klor-Con 10] 10 meq PO DAILY 10/15/18 [History] Allergy/AdvReac Type Severity Reaction Status Date / Time lisinopril AdvReac Cough Verified 02/04/19 19:20 Review of Systems - Constitutional fatigue, fever(s), malaise - EENT Nose, mouth and throat: no dizziness - Cardiovascular no chest pain - Respiratory cough, dyspnea - Gastrointestinal abdominal pain, nausea - Genitourinary Genitourinary: flank pain - Musculoskeletal back pain - Integumentary no erythema - Neurological no confusion - Psychiatric no anxiety - Hematologic/Lymphatic no easy bleeding Exam Initial Vital Signs Temp Pulse Resp BP Pulse Ox 99.9 F H 105 22 119/83 96 04/23/19 14:09 04/23/19 14:09 04/23/19 14:09 04/23/19 14:04/23/19 14:09 - General physical appearance Present: no distress, chronically ill - Eyes Present: PERRL, conjunctiva is clear - ENT Present: normal nares - Neck Present: no masses, no lymphadenopathy - Respiratory Present: other (Wheezing.) - Cardiovascular Cardiovascular exam IM: irregular rhythm - Abdomen Abdomen: Present: soft, suprapubic tenderness - Integumentary Present: no rash - Neurologic Present: normal coordination. Absent: disoriented, confused - Additional Findings Significant left CVA tenderness Urology Results - Labs 04/23/19 15:06 04/23/19 15:06 Abnormal lab results WBC 26.1 K/mcL (4.3-11.1) H 04/23/19 15:06 RBC 5.24 M/mcL (3.82-4.97) H 04/23/19 15:06 MCH 26.3 pg (28.0-33.3) L 04/23/19 15:06 MCHC 31.3 g/dL (31.6-35.5) L 04/23/19 15:06 Neutrophils # 24.5 K/mcL (1.6-8.9) H 04/23/19 15:06 Lymphocytes # 0.5 K/mcL (0.6-4.6) L 04/23/19 15:06 PT 20.8 Seconds (9.4-12.1) H 04/23/19 15:06 APTT 39.8 Seconds (26.0-36.0) H 04/23/19 15:06 Est GFR ( Amer) 59 (> 60) L 04/23/19 15:06 Est GFR (Non-Af Amer) 48 (> 60) L 04/23/19 15:06 Glucose 127 mg/dL (70-105) H 04/23/19 15:06 Lactic Acid 3.3 mmol/L (0.5-2.2) H 04/23/19 15:06 Phosphorus 1.9 mg/dL (2.7-4.5) L 04/23/19 15:06 Magnesium 1.3 mg/dL (1.6-2.6) L 04/23/19 15:06 C-Reactive Protein 37 mg/L (Less than 10) H 04/23/19 15:06 B-Natriuretic Peptide 238 pg/mL (Less than 100) H 04/23/19 14:20 Urine Clarity Cloudy (Clear) A 04/23/19 15:44 Urine Protein 30 mg/dL (Neg-Trace) H 04/23/19 15:44 Urine Blood Large (Negative) H 04/23/19 15:44 Urine Nitrite Positive (Negative) A 04/23/19 15:44 Ur Leukocyte Esterase Moderate (Negative) H 04/23/19 15:44 Urine Microscopic RBC 5-15 per hpf (0-3) H 04/23/19 15:44 Urine Microscopic WBC 50-100 per hpf (0-3) H 04/23/19 15:44 Ur Squamous Epith Cells Many per lpf (None-Few) H 04/23/19 15:44 Urine Bacteria Many per hpf (None-Few) H 04/23/19 15:44 Ur Culture Indicated? YES (NO) A 04/23/19 15:44 Diabetes panel 04/23/19 Range/Units 15:06 Sodium 137 (136-145) mEq/L Potassium 4.0 (3.5-5.1) mEq/L Chloride 100 (98-107) mEq/L Carbon Dioxide 25 (23-29) mEq/L BUN 17 (8-23) mg/dL Creatinine 1.12 (0.60-1.20) mg/dL Glucose 127 H (70-105) mg/dL Calcium 9.4 (8.6-10.3) mg/dL AST 18 (13-39) Units/L ALT 16 (7-52) Units/L Alkaline Phosphatase 82 (34-104) Units/L Albumin 4.1 (3.5-5.7) g/dL Calcium panel 04/23/19 Range/Units 15:06 Calcium 9.4 (8.6-10.3) mg/dL Phosphorus 1.9 L (2.7-4.5) mg/dL Albumin 4.1 (3.5-5.7) g/dL Pituitary panel 04/23/19 Range/Units 15:06 Sodium 137 (136-145) mEq/L Potassium 4.0 (3.5-5.1) mEq/L Chloride 100 (98-107) mEq/L Carbon Dioxide 25 (23-29) mEq/L BUN 17 (8-23) mg/dL Creatinine 1.12 (0.60-1.20) mg/dL Glucose 127 H (70-105) mg/dL Calcium 9.4 (8.6-10.3) mg/dL Adrenal panel 04/23/19 Range/Units 15:06 Sodium 137 (136-145) mEq/L Potassium 4.0 (3.5-5.1) mEq/L Chloride 100 (98-107) mEq/L Carbon Dioxide 25 (23-29) mEq/L BUN 17 (8-23) mg/dL Creatinine 1.12 (0.60-1.20) mg/dL Glucose 127 H (70-105) mg/dL Calcium 9.4 (8.6-10.3) mg/dL Total Bilirubin 0.5 (0.3-1.0) mg/dL AST 18 (13-39) Units/L ALT 16 (7-52) Units/L Alkaline Phosphatase 82 (34-104) Units/L Albumin 4.1 (3.5-5.7) g/dL All other labs normal. Consult Discharge Plan - Plan Referrals: Edouard Cole MD [Primary Care Provider] -
--- NOTE | 2019-04-23 17:50 | Anesthesia Evaluation PreOp ---
Date of Encounter: 04/23/19 Time of Encounter: 17:48 - Past History Planned Operation: Cystoscopy, Left Ureteral Stent Placement Cardiac History: CHF, HTN, Hyperlipidemia, Arrhythmia (H/O A-Fib, on Xarelto--last dose taken 04/22/2019) Pulmonary History: Smoker (49 years), COPD (home O2), KELLY Dx (does not use CPAP) CAREER CENTER DIRECTOR History: Denies Any Significant HX Other Medical History: Renal (kidney stones), GERD, Other (obesity BMI=46.7, depression) Anesthesia History: No Prior Anesthetic Complications, Past Anesthesia Alcohol Use: none Drug use: none Medications and Allergies Albuterol Sulfate [Ventolin Hfa] 2 puff IH Q6H PRN 03/13/16 [History] Aspirin Enteric Coated [Aspirin EC] 81 mg PO DAILY 03/13/16 [History] Calcium Carbonate/Vitamin D3 [Oyster Shell Calcium-Vit D Tab] 500 mg PO BIDWM 03/13/16 [History] Digoxin [Lanoxin] 0.25 mg PO DAILY 03/13/16 [History] Ferrous Sulfate 325 mg PO BID 03/13/16 [History] Umeclidinium [place] [Incruse Ellipta] 62.5 mcg IH DAILY 08/01/16 [History] Omeprazole [PriLOSEC] 40 mg PO DAILY 10/12/16 [History] Furosemide [Lasix] 40 mg PO BID 05/03/17 [History] dilTIAZem HCl [Diltiazem 24Hr ER (Xr)] 240 mg PO DAILY 05/03/17 [History] Budesonide/Formoterol 160/4.5 [Symbicort 160/4.5] 2 puff IH BID 06/19/17 [History] Cholecalciferol (D-3) [Vitamin D] 1,000 unit PO DAILY tablet 12/28/17 [Rx] Mv,Jim,Min/Iron/Folic Acid/Lut [Sentry Multivit & Mineral Cplt] 1 tab PO DAILY 07/19/18 [History] Docusate Sodium [Colace] 100 mg PO BID PRN #30 capsule 07/21/18 [Rx] Rivaroxaban [Xarelto] 20 mg PO DAILY #0 07/21/18 [Rx] Acetaminophen w/Cod 300-30 mg [Tylenol w/Codeine #3] 1 each PO BID PRN 08/29/18 [History] BuPROPion [Wellbutrin] 100 mg PO BID 10/15/18 [History] DULoxetine [Cymbalta] 30 mg PO DAILY 10/15/18 [History] Gabapentin 800 mg PO QID 10/15/18 [History] Naloxone [Narcan] 1 spray NS AD 10/15/18 [History] Potassium Chloride [Klor-Con 10] 10 meq PO DAILY 10/15/18 [History] Allergy/AdvReac Type Severity Reaction Status Date / Time lisinopril AdvReac Cough Verified 02/04/19 19:20 - Meds/Allergy Pre-op Review Medications Reviewed: Yes Allergies Reviewed: Yes Beta Blockers on Current Med List: No Anesthesia Results - Labs 04/23/19 15:06 04/23/19 15:06 - Imaging EKG: report reviewed (02/04/2019 Atrial fibrillation Repol abnrm suggests ischemia, diffuse leads) Additional studies: 08/09/2017 Echo Impressions: Technically sub-optimal due to poor echocardiographic windows. LVEF 50-55%. Not all segments were well visualized, but overall LVEF appears normal. Grossly normal LV chamber size, wall thickness and function. Indeterminate diastolic function. Right ventricle was not well visualized. Grossly, it is normal in size and function. Atypical septal motion consistent with bundle branch block. Right ventricle was not well visualized. Grossly, it is normal in size and function. Mild pulmonary hypertension. No obvious significant valvular dysfunction. Anesthesia Exam Vital Signs/O2 Sat, Most Current Temp Pulse Resp BP Pulse Ox 99.9 F H 117 22 87/68 95 04/23/19 14:09 04/23/19 17:32 04/23/19 17:32 04/23/19 17:32 04/23/19 17:32 Height: 5'4''/1.63m Weight: 272 lbs/123.5 kg NPO (# of Hours): 8 Pain Scale: 4 Pain Scale Used: Numeric (1 - 10) - HEENT Pupil (Motor): EOMI Mallampati: III Teeth: Edentulous Oral Opening: Greater than 3 - CAREER CENTER DIRECTOR LOC: Oriented CAREER CENTER DIRECTOR Motor: Normal RUE, Normal LUE, Normal RLE, Normal LLE, Normal Face CAREER CENTER DIRECTOR Sensory: Normal: RUE, LUE, RLE, LLE, Face - Cardiac Rhythm: Irregular Murmur: None - Pulmonary Breath Sounds: bilateral Clear Respiratory Effort: Symmetrical Anesthesia Assess/Plan ASA Score: 3 (Patient understands that she is at increased risk for perioperat raymond complications including myocardial infarct, arrhythmias, CVA, post op vent support/ICU stay, and . Patient wishes to proceed.) Level of consciousness: Cooperative, Oriented, Tranquil Anesthetic Plan: General Monitoring Plan: Standard Monitors Recovery Plan: PACU
[2019-04-23] MEDS ORDERED: *HR* Norepinephrine 4 MG/4 ML VIAL IVC ONE (17:56)
[2019-04-23] MEDS ORDERED: Albumin Human 5% 0 GM/0 ML VIAL ONE (17:57)
[2019-04-23] MEDS ORDERED: Ringers Solution, Lactated 500 ML ONE (17:57)
[2019-04-23] MEDS ORDERED: *HR* Propofol 200 MG/20 ML VIAL IVP ONE (18:02)
[2019-04-23] MEDS ORDERED: Lidocaine -MPF 2% 2 ML VIAL ONE (18:04)
[2019-04-23] MEDS ORDERED: *HR* Succinylcholine 200 MG/10 ML VIAL IVP ONE (18:04)
[2019-04-23] MEDS ORDERED: *HR* HYDROmorphone (PF) 1 MG/ML SYRINGE IVP PRN (18:04)
[2019-04-23] MEDS ORDERED: Ondansetron 4 MG/2 ML VIAL ONE (18:25)
[2019-04-23] MEDS ORDERED: Dexamethasone 4 MG/ML VIAL ONE (18:25)
[2019-04-23] MEDS ORDERED: Albuterol 2.5 MG/3 ML NEBULIZER ONE (18:59)
--- NOTE | 2019-04-23 19:13 | Operative Note ---
Date of procedure: 04/23/19 Pre-op diagnosis: Left 1.4 cm proximal ureteral stone with hydronephrosis Post-op diagnosis: same Procedure: Cystoscopy. Left retrograde pyelogram. Left ureteral stent placement. Anesthesia: GETA Surgeon: Walter Maria Was there an lab assistant present: No Estimated blood loss (cc): 0 Specimen: Left renal pelvis aspirate for culture Condition: stable Disposition: PACU Procedure in Detail: PROCEDURE IN DETAIL: Patient was taken back to the operating room, positioned supine on the operating table. Anesthesia was applied without complication. They were moved into dorsal lithotomy. Careful attention was maintained to cushion all pressure points for patient's safety. They were prepped and draped in sterile fashion. Time-out was performed with the proper patient and procedure. A 21-Polish rigid cystoscope was inserted into the bladder without difficulty. Systematic examination of bladder revealed significant debris. Signs of cystitis cystica. Patient had grade 4 cystocele/vaginal vault prolapse. I placed 3 Ray-Jl in the vagina to help perform the cystoscopy. The left ureteral orifice was cannulated using a 5-Polish ureteral Catheter and a retrograde pyelogram was performed using Isovue. A filling defect was identified which corresponded to the stone but minimal contrast moved past the stone. I was able to maneuver a zip wire around the stone. I then placed the 5-Polish over the zip wire past the stone and aspirated cloudy purulent urine which was present in her renal pelvis. I replaced the zip wire and passed a 4.8 x 26 ureteral stent over the zip wire under fluoroscopy without complication. No dangle string was left attached. I placed a Montgomery catheter at the end of the procedure.
[2019-04-23] MEDS ORDERED: Ondansetron 4 MG/2 ML VIAL IVP PRN (20:23)
[2019-04-23] MEDS ORDERED: *HR* OxyCODONE Immed Rel 5 MG TABLET PO PRN (20:23)
[2019-04-23] MEDS ORDERED: Naloxone 0.4 MG/ML INJ IVP PRN (20:23)
[2019-04-23] MEDS ORDERED: Acetaminophen 325 MG TABLET PO PRN (20:23)
[2019-04-23] MEDS ORDERED: cefTRIAXone 2,000 MG in Water for inj. (sterile) 20 ML IVPB SCH (20:28)
--- NOTE | 2019-04-23 20:38 | Internal Med History&Physical ---
Date of Encounter: 04/23/19 Time of Encounter: 20:32 Internal Medicine - H&P: HPI Chief complaint: left upper quadrant pain Admitted From: Emergency Dept Plans for Post Hospital Care: Home History of present illness: Ms. Lewis is a 68 year old female with a history of atrial fibrillation on chronic of the coagulation on xarelto, CHF, COPD, GERD hyperlipidemia hypertension status post left AKA who presented to the ED with complaints of left upper quadrant pain. Percent had emergent cystoscopy with left retrograde pyelogram and stent placement after initial workup at the ED with a CT of the abdomen and pelvis revealed obstructing 1.47 cm x 6 mm stone at the left ureter/UPJ. The patient is unable to provide any history status post general anesthesia, she is stable postop day 0 was extubated at the OR was transferred to the ICU on noninvasive positive pressure ventilation. She wakes up to go commands but could hardly stay awake to provide any history. Based on the ED report she told the ED staff she had left upper quadrant pain radiating around the left flank that started this morning. She had no correlating aggravating or relieving factors but she did report chills nausea vomiting and dyspnea. Appe ars patient overall reported generalized weakness and fatigue associated with some dizziness. Past Med Surg Social Fam HX - Past Medical History Medical history: atrial fibrillation, CHF, COPD, GERD, hyperlipidemia, hypertension, other Additional medical history: sleep apnea, DVT left leg,. Psychiatric history: depression - Past Surgical History Surgical History: knee replacement, other Additional surgical history: Left BKA - Social History Smoking Status: Current every day smoker Smokeless Tobacco Status: Yes Alcohol use: none Drug use: none - Family History Mother Adopted: No Family Member Ethnicity: Non- Living Status: Hx Family Cardiac Disorders: Yes (TIAs, CVA, HTN) Hx Family Respiratory Disorders: Yes Hx Family Cancer: Yes Hx Family GI Disorders: No Hx Family Endocrine Disorder: Yes Hx Family Neuromuscular Disorders: No Hx Family Neurologic Disorders: No Hx Family HEENT Disorders: No Hx Family Autoimmune Disorders: No Father Family Member Ethnicity: Non- Living Status: Hx Family Cardiac Disorders: Yes Hx Family Respiratory Disorders: Yes Hx Family Cancer: Yes (Stomach) Hx Family GI Disorders: No Hx Family Endocrine Disorder: No Hx Family Neuromuscular Disorders: Yes Hx Family Neurologic Disorders: Yes Hx Family HEENT Disorders: No Hx Family Autoimmune Disorders: No Brother Adopted: No Family Member Ethnicity: Non- Living Status: Still Living Hx Family Cardiac Disorders: Yes Hx Family Respiratory Disorders: No Hx Family Cancer: No Hx Family GI Disorders: No Hx Family Endocrine Disorder: Yes Hx Family Neuromuscular Disorders: No Hx Family Neurologic Disorders: Yes Hx Family HEENT Disorders: No Hx Family Autoimmune Disorders: No Sister Adopted: No Family Member Ethnicity: Non- Living Status: Still Living Hx Family Cardiac Disorders: Yes (HTN) Hx Family Respiratory Disorders: Yes (COPD, ASTHMA) Hx Family Cancer: No Hx Family GI Disorders: No Hx Family Endocrine Disorder: No Hx Family Neuromuscular Disorders: No Hx Family Neurologic Disorders: No Hx Family HEENT Disorders: No Hx Family Autoimmune Disorders: No Internal Medicine - H&P: Meds Albuterol Sulfate [Ventolin Hfa] 2 puff IH Q6H PRN 03/13/16 [History] Aspirin Enteric Coated [Aspirin EC] 81 mg PO DAILY 03/13/16 [History] Calcium Carbonate/Vitamin D3 [Oyster Shell Calcium-Vit D Tab] 500 mg PO BIDWM 03/13/16 [History] Digoxin [Lanoxin] 0.25 mg PO DAILY 03/13/16 [History] Ferrous Sulfate 325 mg PO BID 03/13/16 [History] Umeclidinium [place] [Incruse Ellipta] 62.5 mcg IH DAILY 08/01/16 [History] Omeprazole [PriLOSEC] 40 mg PO DAILY 10/12/16 [History] Furosemide [Lasix] 40 mg PO BID 05/03/17 [History] dilTIAZem HCl [Diltiazem 24Hr ER (Xr)] 240 mg PO DAILY 05/03/17 [History] Budesonide/Formoterol 160/4.5 [Symbicort 160/4.5] 2 puff IH BID 06/19/17 [History] Cholecalciferol (D-3) [Vitamin D] 1,000 unit PO DAILY tablet 12/28/17 [Rx] Mv,Jim,Min/Iron/Folic Acid/Lut [Sentry Multivit & Mineral Cplt] 1 tab PO DAILY 07/19/18 [History] Docusate Sodium [Colace] 100 mg PO BID PRN #30 capsule 07/21/18 [Rx] Rivaroxaban [Xarelto] 20 mg PO DAILY #0 07/21/18 [Rx] Acetaminophen w/Cod 300-30 mg [Tylenol w/Codeine #3] 1 each PO BID PRN 08/29/18 [History] BuPROPion [Wellbutrin] 100 mg PO BID 10/15/18 [History] DULoxetine [Cymbalta] 30 mg PO DAILY 10/15/18 [History] Gabapentin 800 mg PO QID 10/15/18 [History] Naloxone [Narcan] 1 spray NS AD 10/15/18 [History] Potassium Chloride [Klor-Con 10] 10 meq PO DAILY 10/15/18 [History] Allergy/AdvReac Type Severity Reaction Status Date / Time lisinopril AdvReac Cough Verified 02/04/19 19:20 All Systems PM: A 10-system review of systems was performed and is negative for pertinent findings except as documented above in the HPI. Review of systems: Unable to perform patient is status post general anesthesia and hypersomnolence - Constitutional Vitals: Temp Pulse Resp BP Pulse Ox 98.3 F 80 17 87/60 94 04/23/19 19:25 04/23/19 20:00 04/23/19 20:00 04/23/19 20:00 04/23/19 20:00 Exam: GENERAL: Morbidly obese female resting comfortably in the ICU bed appears to be tolerating her BiPAP mask, her nurse by her bedside, patient wakes on command SKIN: Multiple excoriations and skin wounds noted on right lower extremity, otherwise pink and dry acyanotic nonjaundiced EYES: Pinpoint pupils but reactive HENT: Head atraumatic, wearing a BiPAP mask unable to fully visualize oropharynx LUNGS: Coarse but diminished no wheeze, or rhonchi, minimal crackles. Non labored respirations HEART: Normal rate and rhythm, no murmurs or rubs ABDOMEN: Obese soft, non-tender, non-distended, bowel sounds x 4 hypoactive EXTRMITIES: LE asymmetry noted status post left AKA, No right LE edema but skin lesions as aforementioned, radial pulses 1 + and equal bilaterally NEURO: Responds to verbal commands briefly, hypersomnolence status post general anesthesia PSYCH: Deferred Internal Med - H&P Results - Labs CBC & Chem 7: 04/23/19 15:06 04/23/19 15:06 Labs: Short CBC 04/23/19 Range/Units 15:06 WBC 26.1 H (4.3-11.1) K/mcL Hgb 13.8 (11.5-15.4) g/dL Hct 44.1 (35.3-44.9) % Plt Count 269 (140-400) K/mcL Neutrophils # 24.5 H (1.6-8.9) K/mcL BMP 04/23/19 15:06 Sodium 137 Potassium 4.0 Chloride 100 Carbon Dioxide 25 BUN 17 Creatinine 1.12 Glucose 127 H Calcium 9.4 Cardiac Enzymes 04/23/19 Range/Units 15:06 Troponin I < 0.03 (< 0.04) ng/mL Liver Function 04/23/19 Range/Units 15:06 Total Bilirubin 0.5 (0.3-1.0) mg/dL Direct Bilirubin 0.1 (0.0-0.2) mg/dL AST 18 (13-39) Units/L ALT 16 (7-52) Units/L Alkaline Phosphatase 82 (34-104) Units/L Albumin 4.1 (3.5-5.7) g/dL Urine 04/23/19 Range/Units 15:44 Urine Color Yellow (Yellow) Urine Clarity Cloudy A (Clear) Urine pH 5.5 (5.0-8.0) pH Units Ur Specific [place] 1.019 (1.010-1.025) Urine Protein 30 H (Neg-Trace) mg/dL Urine Glucose (UA) Normal (Normal) mg/dL - Impressions ITS Impressions Chest X-Ray 04/23/19 14:55 IMPRESSION: Vascular congestion without overt pulmonary edema. D/ / Surendra Menjivar MD / Surendra Menjivar MD Interpreting Provider: Surendra Menjivar MD Abdomen/Pelvis CT 04/23/19 15:25 IMPRESSION: Obstructing 1.4 cm x 6 mm stone proximal left ureter/UPJ. Fatty liver. Mildly distended gallbladder. D/ / 04/23/2019 17:10:18 Master Kohli MD / [facility] Interpreting Provider: Master Kohli MD - Assessment and Plan (1) Hydronephrosis with renal and ureteral calculous obstruction Current Visit: Yes Status: Acute Assessment and plan: Status post cystoscopy with retrograde pyelogram and stent placement plan per urology appreciate their input (2) Sepsis Current Visit: Yes Status: Acute Assessment and plan: Secondary to UTI in the setting of ureterolithiasis patient has leukocytosis, she is hypotensive status post general anesthesia would push fluids cautiously given that he has a history of diastolic heart failure, last echocardiogram was in July 2017 EF of 50-55%, given her current state suspect she may have decompensated as such no further bolus will be ordered, maintain LR fluid rate at 125 ML's per hour . We will start patient on high-dose ceftriaxone blood and urine cultures are pending Qualifiers: Sepsis type: sepsis due to unspecified organism Sepsis acute organ dysfunction status: without acute organ dysfunction Qualified Code(s): A41.9 - Sepsis, unspecified organism (3) UTI (urinary tract infection) Current Visit: Yes Status: Acute Assessment and plan: As aforementioned ceftriaxone pending urine culture Qualifiers: Urinary tract infection type: acute pyelonephritis Qualified Code(s): N10 - Acute pyelonephritis (4) COPD (chronic obstructive pulmonary disease) Current Visit: Yes Status: Chronic Assessment and plan: DuoNeb scheduled in next 24 hours then prn Qualifiers: COPD type: unspecified COPD Qualified Code(s): J44.9 - Chronic obstructive pulmonary disease, unspecified (5) Chronic atrial fibrillation Current Visit: Yes Status: Chronic Assessment and plan: She rate controlled on telemetry patient would likely need xarelto restarted tomorrow once med rec is complete (6) Diastolic CHF Current Visit: Yes Status: Chronic Assessment and plan: last Echo 2017, EF 50%. Continue medical regimen once med rec is complete Qualifiers: Heart failure chronicity: chronic Qualified Code(s): I50.32 - Chronic diastolic (congestive) heart failure (7) GERD (gastroesophageal reflux disease) Current Visit: Yes Status: Chronic Assessment and plan: Continue PPI therapy once med rec is complete Qualifiers: Esophagitis presence: esophagitis presence not specified Qualified Code(s): K21.9 - Gastro-esophageal reflux disease without esophagitis (8) HTN (hypertension) Current Visit: Yes Status: Chronic Assessment and plan: Currently hypotensive although in the setting of sepsis would recommend holding off on all anti-hypertensive medications Qualifiers: Hypertension type: essential hypertension Qualified Code(s): I10 - Essential (primary) hypertension (9) Morbid obesity with BMI of 45.0-49.9, adult Current Visit: Yes Status: Chronic Assessment and plan: Encourage lifestyle modifications (10) DVT (deep venous thrombosis) Current Visit: Yes Status: Acute Assessment and plan: Patient already on xarelto Qualifiers: DVT location: lower extremity Affected thrombotic vein of extremity: popliteal Chronicity: acute Laterality: left Qualified Code(s): I82.432 - Acute embolism and thrombosis of left popliteal vein - Time Spent With Patient Total time spent is greater than 50% in coordination of care (as documented) at patient's floor/unit and/or counseling patient:
[2019-04-23] MEDS: Ipratropium/Albuterol Neb 3 ML IH SCH (22:16)
[2019-04-24] MEDS: Ringers Solution, Lactated 1,000 ML IVC SCH ×2 (03:21)
[2019-04-24] MEDS: Ipratropium/Albuterol Neb 3 ML IH SCH ×5 (03:52→22:04)
[2019-04-24 04:12] LABS: Basophils % 0.2 %
[2019-04-24 04:13] LABS: Basophils # 0.1 K/mcL (0.0-0.2); Hematocrit 38.8 % (35.3-44.9); Lymphocytes % 3.2 %; Mean Corpuscular HGB Conc 30.9 g/dL (31.6-35.5); Mean Corpuscular Hemoglobin 26.5 pg (28.0-33.3); Mean Corpuscular Volume 85.8 fL (83.0-100.0); Mean Platelet Volume 10.2 fL (9.4-12.4); Monocytes # 1.2 K/mcL (0.0-1.3); Platelet Count 265 K/mcL (140-400); Red Blood Count 4.52 M/mcL (3.82-4.97); Red Cell Distribution Width 14.6 % (11.5-14.5); Segmented Neutrophils % 90.6 %
[2019-04-24 04:14] LABS: Enterococcus by PCR Not Detected (Not Detect); Staphylococcus aureus by PCR Not Detected (Not Detect); Staphylococcus by PCR Not Detected (Not Detect); Streptococcus agalactiae(B)PCR Not Detected (Not Detect); Streptococcus by PCR Not Detected (Not Detect); Streptococcus pneumoniae PCR Not Detected (Not Detect); Streptococcus pyogenes (A) PCR Not Detected (Not Detect); blaKPC Carbapenem-Resist Gene Not Detected (Not Detect); mecA Methicillin-Resist Gene Not Detected (Not Detect); vanA/B Vancomycin-Resist Genes Not Detected (Not Detect)
[2019-04-24 04:15] LABS: Acinetobacter baumannii by PCR Not Detected (Not Detect); Candida albicans by PCR Not Detected (Not Detect); Candida glabrata by PCR Not Detected (Not Detect); Candida krusei by PCR Not Detected (Not Detect); Candida parapsilosis by PCR Not Detected (Not Detect); Candida tropicalis by PCR Not Detected (Not Detect); Enterobacter cloacae Cmplx PCR Not Detected (Not Detect); Escherichia coli by PCR DETECTED (Not Detect); Klebsiella oxytoca by PCR Not Detected (Not Detect); Klebsiella pneumoniae by PCR Not Detected (Not Detect); Proteus by PCR Not Detected (Not Detect); Pseudomonas aeruginosa by PCR Not Detected (Not Detect); Serratia marcescens by PCR Not Detected (Not Detect)
[2019-04-24 04:35] LABS: Lymphocytes # 1.2 K/mcL (0.6-4.6); Neutrophils # 35.2 K/mcL (1.6-8.9)
[2019-04-24 04:37] LABS: White Blood Count 38.9 K/mcL (4.3-11.1)
[2019-04-24 04:38] LABS: BUN/Creatinine Ratio 17 (6-26); Blood Urea Nitrogen 18 mg/dL (8-23); Calcium 8.6 mg/dL (8.6-10.3); Carbon Dioxide 24 mEq/L (23-29); Chloride 104 mEq/L (98-107); Glucose 148 mg/dL (70-105); Magnesium 1.6 mg/dL (1.6-2.6); Osmolality,Calculated 289 (280-300); Potassium 4.2 mEq/L (3.5-5.1); Sodium 137 mEq/L (136-145); eGFR For African Americans > 60 (> 60); eGFR For Non-African Americans 50 (> 60)
[2019-04-24 05:21] LABS: Platelet Estimate Normal (Normal)
[2019-04-24] MEDS ORDERED: Ringers Solution, Lactated 1,000 ML IVC SCH (07:29)
[2019-04-24] MEDS ORDERED: *HR* OxyCODONE Immed Rel 5 MG TABLET PO PRN ×2 (07:29→10:53)
[2019-04-24] MEDS ORDERED: Acetaminophen 325 MG TABLET PO PRN ×4 (07:29→10:53)
[2019-04-24] MEDS ORDERED: Naloxone 0.4 MG/ML INJ IVP PRN ×3 (07:29→10:53)
[2019-04-24] MEDS ORDERED: Ibuprofen 400 MG TABLET PO PRN ×2 (07:29→10:53)
[2019-04-24] MEDS ORDERED: Ondansetron 4 MG/2 ML VIAL IVP PRN ×3 (07:29→10:53)
[2019-04-24] MEDS ORDERED: *HR* HYDROcodone/Acet 5/325 mg TABLET PO PRN ×2 (07:29→10:53)
[2019-04-24] MEDS ORDERED: 0.9 % Sodium Chloride 1,000 ML IVC SCH ×3 (07:29→10:53)
--- NOTE | 2019-04-24 07:46 | Internal Med Progress Note ---
<Sanket Arora N - Last Filed: 04/24/19 09:48> Hospitalist Progress Note - Encounter Date of Encounter: 04/24/19 Time of Encounter: 07:45 - Subjective Interval History: Patient states she is feeling well today and is in far less pain than when she presented. Patient denies fever, chills, abdominal pain, nausea, vomiting, diarrhea, or constipation at this time. - Exam Vitals: Temp Pulse Resp BP Pulse Ox 98 F 90 14 125/74 93 04/24/19 04:00 04/24/19 07:00 04/24/19 07:00 04/24/19 07:00 04/24/19 07:00 Exam: GENERAL: Alert and oriented 3. Pleasant morbidly obese female lying comfortably in bed. EYES: EOMI. HENT: Head atraumatic, normocephalic LUNGS: CTAB. No wheezes HEART: Regular rate and rhythm, no murmurs or rubs ABDOMEN: Obese soft, non-tender, non-distended, normal BS EXTRMITIES: status post left AKA, No right LE edema but skin lesions as aforementioned, NEURO: Responds to verbal commands briefly, hypersomnolence status post general anesthesia PSYCH: Normal mood and affect. - Assessment and Plan (1) Hydronephrosis with renal and ureteral calculous obstruction Current Visit: Yes Status: Acute Assessment and Plan: Status post cystoscopy with retrograde pyelogram and stent placement -Urology following patient, recommendations appreciated (2) Sepsis Current Visit: No Status: Resolved Assessment and Plan: Secondary to UTI in the setting of ureterolithiasis with leukocytosis (3) Bacteremia due to Gram-negative bacteria Current Visit: No Status: Acute Assessment and Plan: Initial blood cultures 2 positive for gram-negative rods. (4) Diastolic CHF Current Visit: Yes Status: Chronic Assessment and Plan: Previous Echo with EF of 50% -Continue Digoxin and Lasix -Continue to be cautious with IV fluids and monitor for signs of fluid overload. (5) Atrial fibrillation Current Visit: Yes Status: Acute Assessment and Plan: Currently Rate controlled -Restarted Xarelto -On Cardizem ER for rate control DVT Prophylaxis: On Xarelto - Time Spent with Patient Total time spent is greater than 50% in coordination of care (as documented) at patient's floor/unit and/or counseling patient: Internal Medicine: Result - Labs CBC & Chem 7: 09/04/19 03:15 04/24/19 03:15 Labs: Short CBC 04/23/19 04/24/19 Range/Units 15:06 03:15 WBC 26.1 H 38.9 H* (4.3-11.1) K/mcL Hgb 13.8 12.0 D (11.5-15.4) g/dL Hct 44.1 38.8 (35.3-44.9) % Plt Count 269 265 (140-400) K/mcL Neutrophils # 24.5 H 35.2 H (1.6-8.9) K/mcL BMP 04/23/19 04/24/19 15:06 03:15 Sodium 137 137 Potassium 4.0 4.2 Chloride 100 104 Carbon Dioxide 25 24 BUN 17 18 Creatinine 1.12 1.08 Glucose 127 H 148 H Calcium 9.4 8.6 Cardiac Enzymes 04/23/19 Range/Units 15:06 Troponin I < 0.03 (< 0.04) ng/mL Liver Function 04/23/19 Range/Units 15:06 Total Bilirubin 0.5 (0.3-1.0) mg/dL Direct Bilirubin 0.1 (0.0-0.2) mg/dL AST 18 (13-39) Units/L ALT 16 (7-52) Units/L Alkaline Phosphatase 82 (34-104) Units/L Albumin 4.1 (3.5-5.7) g/dL Urine 04/23/19 Range/Units 15:44 Urine Color Yellow (Yellow) Urine Clarity Cloudy A (Clear) Urine pH 5.5 (5.0-8.0) pH Units Ur Specific Meredith 1.019 (1.010-1.025) Urine Protein 30 H (Neg-Trace) mg/dL Urine Glucose (UA) Normal (Normal) mg/dL - ABG Interpretation ABG results: PT/INR, D-dimer PT 20.8 Seconds (9.4-12.1) H 04/23/19 15:06 - Impressions Impressions Retrograde Pyelogram 04/23/19 00:00 IMPRESSION: Intraprocedural fluoroscopic spot images as above. See separate procedure report for more information. D/ / Yesy Blank Cha, MD / Yesy Blank Cha, MD Interpreting Provider: Yesy Blank Cha, MD Chest X-Ray 04/23/19 14:55 IMPRESSION: Vascular congestion without overt pulmonary edema. D/ / Surendra Menjivar MD / Surendra Menjivar MD Interpreting Provider: Surendra Menjivar MD Abdomen/Pelvis CT 04/23/19 15:25 IMPRESSION: Obstructing 1.4 cm x 6 mm stone proximal left ureter/UPJ. Fatty liver. Mildly distended gallbladder. D/ / 04/23/2019 17:10:18 Master Kohli MD / paola Interpreting Provider: Master Kohli MD Consult Discharge Plan - Plan Referrals: Edouard Cole MD [Primary Care Provider] - <Awais Petit - Last Filed: 04/24/19 12:18> Hospitalist Progress Note - Encounter Date of Encounter: 04/24/19 Time of Encounter: 07:55 - Subjective Interval History: Chart reviewed, patient examined, and labs reviewed independently and on rounds with MDR team. Patient feels much better. She has minimal flank pain. BP/HR preserved. She received fluid bolus last night per sepsis protocol, had cystoscopy with stent placement, and has remained hemodynamically stable since then. Blood cultures have already grown + for GNR, likely E.Coli. - Exam Vitals: Temp Pulse Resp BP Pulse Ox 98.1 F 103 15 121/89 93 04/24/19 09:03 04/24/19 10:00 04/24/19 10:00 04/24/19 10:00 04/24/19 10:00 Exam: General: alert, eating breakfast, NAD, no nausea HEENT: pink, moist mucosa, neck supple, no icterus Chest: CTA B, no WRR, IRR/IRR, no MTR; distant heart sounds Abdomen: soft, NT, ND, no HSMG, + BS, no rebound, no guarding Back: Minimal flank pain - much improved per patient EXT: L AKA stump; RLE w no CCE; cap refill < 2 seconds Neuro: A&Ox3; no focal deficits Skin: warm and dry - Time Spent with Patient Total time spent is greater than 50% in coordination of care (as documented) at patient's floor/unit and/or counseling patient: 25 - 35 minutes Plan of Care Discussed with: other (patient and MDR team) Internal Medicine: Result - Labs CBC & Chem 7: 04/24/19 03:15 04/24/19 03:15 Labs: Short CBC 04/23/19 04/24/19 Range/Units 15:06 03:15 WBC 26.1 H 38.9 H* (4.3-11.1) K/mcL Hgb 13.8 12.0 D (11.5-15.4) g/dL Hct 44.1 38.8 (35.3-44.9) % Plt Count 269 265 (140-400) K/mcL Neutrophils # 24.5 H 35.2 H (1.6-8.9) K/mcL BMP 04/23/19 04/24/19 15:06 03:15 Sodium 137 137 Potassium 4.0 4.2 Chloride 100 104 Carbon Dioxide 25 24 BUN 17 18 Creatinine 1.12 1.08 Glucose 127 H 148 H Calcium 9.4 8.6 Cardiac Enzymes 04/23/19 Range/Units 15:06 Troponin I < 0.03 (< 0.04) ng/mL Liver Function 04/23/19 Range/Units 15:06 Total Bilirubin 0.5 (0.3-1.0) mg/dL Direct Bilirubin 0.1 (0.0-0.2) mg/dL AST 18 (13-39) Units/L ALT 16 (7-52) Units/L Alkaline Phosphatase 82 (34-104) Units/L Albumin 4.1 (3.5-5.7) g/dL Urine 04/23/19 Range/Units 15:44 Urine Color Yellow (Yellow) Urine Clarity Cloudy A (Clear) Urine pH 5.5 (5.0-8.0) pH Units Ur Specific Meredith 1.019 (1.010-1.025) Urine Protein 30 H (Neg-Trace) mg/dL Urine Glucose (UA) Normal (Normal) mg/dL - ABG Interpretation ABG results: PT/INR, D-dimer PT 20.8 Seconds (9.4-12.1) H 04/23/19 15:06 - Impressions Impressions Retrograde Pyelogram 04/23/19 00:00 IMPRESSION: Intraprocedural fluoroscopic spot images as above. See separate procedure report for more information. D/ / Yesy Blank Cha, MD / Yesy Blank Cha, MD Interpreting Provider: Yesy Blank Cha, MD Chest X-Ray 04/23/19 14:55 IMPRESSION: Vascular congestion without overt pulmonary edema. D/ / Surendra Menjivar MD / Surendra Menjivar MD Interpreting Provider: Surendra Menjivar MD Abdomen/Pelvis CT 04/23/19 15:25 IMPRESSION: Obstructing 1.4 cm x 6 mm stone proximal left ureter/UPJ. Fatty liver. Mildly distended gallbladder. D/ / 04/23/2019 17:10:18 Master Kohli MD / paola Interpreting Provider: Master Kohli MD - Attending Attestation I discussed the patient case, [place], surgical intervention, and the overnight cl inical course with Dr. Arora and the MDR team. I saw and examined patient independently, reviewed records independently, and reviewed her labs as well. Patient is septic from a source caused by polynephritis from obstructing kidney stone. She has gram-negative rods in her blood, presumably Escherichia coli. Her white blood count has climbed, but clinically, she appears well, feels much better, and is well-perfused. Her lactate is down trending and repeat lactate is normal this morning. She received 30 ml/kg fluid bolus in the ER last night and has been maintained on IV fluids. Furthermore, she underwent emergent urologic intervention last night, which was necessary and appropriate. She has remained hemodynamically stable overnight and remains so this morning. She will be transferred to telemetry floor for ongoing care of her sepsis secondary to source. Of note, I am stopping her Lasix and decreasing her MIV now. Her fluid balance will need to be monitored and Lasix resumed when clinically appropriate. Other than my comments above and documented exam findings, I agree with Dr. Arora's assessment and plan and the MDR team discussions and recommendations. <Sanket Arora N - Last Filed: 04/24/19 09:48> (2) Sepsis Qualifiers: Sepsis type: Escherichia coli (4) Diastolic CHF Qualifiers: Heart failure chronicity: chronic Qualified Code(s): I50.32 - Chronic diastolic (congestive) heart failure
[2019-04-24] MEDS ORDERED: cefTRIAXone 2,000 MG in Water for inj. (sterile) 20 ML IVP SCH ×2 (08:00→09:00)
--- NOTE | 2019-04-24 08:25 | Urology Progress Note ---
<Giana Salinas N - Last Filed: 04/24/19 08:23> Date of Encounter: 04/24/19 Time of Encounter: 07:50 - Assessment and Plan (1) Hydronephrosis with renal and ureteral calculous obstruction Current Visit: Yes Status: Acute Assessment and plan: Patient is a 68-year-old female who presents one day status post cystoscopy, left retrograde pyelogram and left ureteral stent placement. Patient is recovering well postoperatively. Patient is aware she will require an outpatient staged stone extraction procedure for definitive stone treatment. (2) Sepsis Current Visit: Yes Status: Acute Assessment and plan: Patient is a 68-year-old female who presents with an obstructing ureteral stone and urosepsis. Preliminary blood cultures are positive for gram-negative rods. Vital signs are currently stable and afebrile. White blood cell count is markedly elevated to 38.9, and renal function is slightly improved with GFR 50. Patient is receiving IV Rocephin. We are awaiting final culture and sensitivity report. Qualifiers: Sepsis type: sepsis due to unspecified organism Sepsis acute organ dysfunction status: without acute organ dysfunction Qualified Code(s): A41.9 - Sepsis, unspecified organism Progress Note Subjective: no new complaints Narrative: POD #1. Patient seen and examined sitting upright in bed in no apparent distress. Montgomery catheter is indwelling and draining transparent, pink lemonade urine into bedside bag. Objective Initial Vital Signs Temp Pulse Resp BP Pulse Ox 99.9 F H 105 22 119/83 96 04/23/19 14:09 04/23/19 14:09 04/23/19 14:09 04/23/19 14:09 04/23/19 14:09 - General physical appearance Present: no distress, no pain, obese - Respiratory Present: normal expansion, normal respiratory effort - Abdomen Present: soft, non tender. Absent: distended - Genitourinary Urine Appearance: Present: Hematuria (Transparent, pink lemonade urine) - Integumentary Present: no rash, no abnormal pigmentation - Musculoskeletal Present: normal posture - Psychiatric Present: oriented to time, oriented to person, oriented to place, speech is normal, memory intact - Labs 04/24/19 03:15 04/24/19 03:15 Diabetes panel 04/23/19 04/24/19 Range/Units 15:06 03:15 Sodium 137 137 (136-145) mEq/L Potassium 4.0 4.2 (3.5-5.1) mEq/L Chloride 100 104 (98-107) mEq/L Carbon Dioxide 25 24 (23-29) mEq/L BUN 17 18 (8-23) mg/dL Creatinine 1.12 1.08 (0.60-1.20) mg/dL Glucose 127 H 148 H (70-105) mg/dL Calcium 9.4 8.6 (8.6-10.3) mg/dL AST 18 (13-39) Units/L ALT 16 (7-52) Units/L Alkaline Phosphatase 82 (34-104) Units/L Albumin 4.1 (3.5-5.7) g/dL Calcium panel 04/23/19 04/24/19 Range/Units 15:06 03:15 Calcium 9.4 8.6 (8.6-10.3) mg/dL Phosphorus 1.9 L (2.7-4.5) mg/dL Albumin 4.1 (3.5-5.7) g/dL Pituitary panel 04/23/19 04/24/19 Range/Units 15:06 03:15 Sodium 137 137 (136-145) mEq/L Potassium 4.0 4.2 (3.5-5.1) mEq/L Chloride 100 104 (98-107) mEq/L Carbon Dioxide 25 24 (23-29) mEq/L BUN 17 18 (8-23) mg/dL Creatinine 1.12 1.08 (0.60-1.20) mg/dL Glucose 127 H 148 H (70-105) mg/dL Calcium 9.4 8.6 (8.6-10.3) mg/dL Adrenal panel 04/23/19 04/24/19 Range/Units 15:06 03:15 Sodium 137 137 (136-145) mEq/L Potassium 4.0 4.2 (3.5-5.1) mEq/L Chloride 100 104 (98-107) mEq/L Carbon Dioxide 25 24 (23-29) mEq/L BUN 17 18 (8-23) mg/dL Creatinine 1.12 1.08 (0.60-1.20) mg/dL Glucose 127 H 148 H (70-105) mg/dL Calcium 9.4 8.6 (8.6-10.3) mg/dL Total Bilirubin 0.5 (0.3-1.0) mg/dL AST 18 (13-39) Units/L ALT 16 (7-52) Units/L Alkaline Phosphatase 82 (34-104) Units/L Albumin 4.1 (3.5-5.7) g/dL Consult Discharge Plan - Plan Referrals: Edouard Cole MD [Primary Care Provider] - <CrowWalter Marvin - Last Filed: 04/24/19 17:54> Date of Encounter: 04/24/19 - Assessment and Plan (1) Hydronephrosis with renal and ureteral calculous obstruction Current Visit: Yes Status: Acute Assessment and plan: Patient states she feels much better today. Continue to follow cultures but blood cultures are positive preliminarily. Will change to by mouth antibiotics when available. Patient will be scheduled for outpatient management of the stone. (2) Sepsis Current Visit: Yes Status: Acute Qualifiers: Sepsis type: sepsis due to unspecified organism Sepsis acute organ dysfunction status: without acute organ dysfunction Qualified Code(s): A41.9 - Sepsis, unspecified organism Objective Initial Vital Signs Temp Pulse Resp BP Pulse Ox 99.9 F H 105 22 119/83 96 04/23/19 14:04/23/19 14:04/23/19 14:04/23/19 14:04/23/19 14:09 - Labs 04/24/19 03:15 04/24/19 03:15 Diabetes panel 04/24/19 Range/Units 03:15 Sodium 137 (136-145) mEq/L Potassium 4.2 (3.5-5.1) mEq/L Chloride 104 (98-107) mEq/L Carbon Dioxide 24 (23-29) mEq/L BUN 18 (8-23) mg/dL Creatinine 1.08 (0.60-1.20) mg/dL Glucose 148 H (70-105) mg/dL Calcium 8.6 (8.6-10.3) mg/dL Calcium panel 04/24/19 Range/Units 03:15 Calcium 8.6 (8.6-10.3) mg/dL Pituitary panel 04/24/19 Range/Units 03:15 Sodium 137 (136-145) mEq/L Potassium 4.2 (3.5-5.1) mEq/L Chloride 104 (98-107) mEq/L Carbon Dioxide 24 (23-29) mEq/L BUN 18 (8-23) mg/dL Creatinine 1.08 (0.60-1.20) mg/dL Glucose 148 H (70-105) mg/dL Calcium 8.6 (8.6-10.3) mg/dL Adrenal panel 04/24/19 Range/Units 03:15 Sodium 137 (136-145) mEq/L Potassium 4.2 (3.5-5.1) mEq/L Chloride 104 (98-107) mEq/L Carbon Dioxide 24 (23-29) mEq/L BUN 18 (8-23) mg/dL Creatinine 1.08 (0.60-1.20) mg/dL Glucose 148 H (70-105) mg/dL Calcium 8.6 (8.6-10.3) mg/dL
[2019-04-24] MEDS ORDERED: Water for inj. (sterile) 20 ML IV ONE (08:33)
[2019-04-24] MEDS ORDERED: cefTRIAXone 1,000 MG in Water for inj. (sterile) 10 ML IVP SCH (09:00)
[2019-04-24] MEDS ORDERED: *HR* Digoxin 0.25 MG TABLET PO SCH (09:00)
[2019-04-24] MEDS ORDERED: Diltiazem CD (24hr) 240 MG CAPSULE PO SCH (09:00)
[2019-04-24] MEDS ORDERED: Furosemide 40 MG TABLET PO SCH ×2 (09:00→21:00)
[2019-04-24] MEDS ORDERED: NON-FORMULARY MEDICATION 1 EACH EACH (Umeclidinium Bromide [Incruse Ellipta] 62.5 MCG) IH SCH (09:00)
[2019-04-24] MEDS ORDERED: Gabapentin 400 MG CAPSULE PO SCH (09:00)
[2019-04-24] MEDS ORDERED: Aspirin Enteric Coated 81 MG Tablet PO SCH (09:00)
[2019-04-24] MEDS ORDERED: Budesonide/Formoterol 160/4.5 1 PUFF INH IH SCH (10:00)
--- NOTE | 2019-04-24 10:59 | Electrocardiograph Report ---
[address] [address] Test Date: 2019-04-23 Pat Name: Capri Lewis Department: [id number] Room: 02 Gender: Greeter Guest Services: : 1950 Requested By: Juan Reyes Order Number: [id number] Reading MD: Tee Richardson Measurements Intervals [place] Rate: 122 P: [place]: QRS: 39 QRSD: 81 T: 258 QT: 306 QTc: 436 Interpretive Statements Atrial fibrillation Abnormal R-wave progression, early transition Repol abnrm suggests ischemia, diffuse leads Electronically Signed On 04-24-2019 10:57:30 EDT by Tee Richardson
[2019-04-24] MEDS: 0.9 % Sodium Chloride 1,000 ML IVC SCH ×2 (12:41→22:38)
[2019-04-24] MEDS: Gabapentin 400 MG CAPSULE PO SCH ×3 (12:45→22:28)
[2019-04-24] MEDS ORDERED: D5% in Water 1,000 ML IVC PRN (13:59)
[2019-04-24] MEDS ORDERED: Dextrose Gel 15 GM/37.5 ML TUBE PO PRN ×2 (13:59)
[2019-04-24] MEDS ORDERED: *HR* Dextrose 50 % in Water (Syg) 50 ML SYRINGE IVP PRN (13:59)
[2019-04-24] MEDS ORDERED: Magnesium Oxide 400 MG TABLET PO ONE ×2 (16:47)
[2019-04-24] MEDS ORDERED: *HR* Rivaroxaban 10 MG TABLET PO SCH (17:00)
[2019-04-24] MEDS: *HR* Rivaroxaban 10 MG TABLET PO SCH (17:45)
[2019-04-24] MEDS: Insulin LISPRO 300 UNITS/3 ML VIAL SQ SCH ×2 (17:45→22:30)
[2019-04-24] MEDS: Budesonide/Formoterol 160/4.5 1 PUFF INH IH SCH (22:04)
[2019-04-25] MEDS: Ipratropium/Albuterol Neb 3 ML IH SCH ×4 (03:52→21:07)
[2019-04-25 05:58] LABS: Basophils # 0.1 K/mcL (0.0-0.2); Basophils % 0.3 %; Eosinophils # 0.1 K/mcL (0.0-0.6); Eosinophils % 0.5 %; Hematocrit 35.2 % (35.3-44.9); Hemoglobin 10.5 g/dL (11.5-15.4); Immature Granulocytes % 0.7 % (0-4); Lymphocytes # 1.5 K/mcL (0.6-4.6); Lymphocytes % 6.3 %; Mean Corpuscular HGB Conc 29.8 g/dL (31.6-35.5); Mean Corpuscular Hemoglobin 25.7 pg (28.0-33.3); Mean Corpuscular Volume 86.1 fL (83.0-100.0); Mean Platelet Volume 10.4 fL (9.4-12.4); Monocytes # 1.3 K/mcL (0.0-1.3); Monocytes % 5.6 %; Neutrophils # 19.8 K/mcL (1.6-8.9); Platelet Count 240 K/mcL (140-400); Red Blood Count 4.09 M/mcL (3.82-4.97); Red Cell Distribution Width 15.1 % (11.5-14.5); Segmented Neutrophils % 86.6 %; White Blood Count 22.8 K/mcL (4.3-11.1)
[2019-04-25 06:15] LABS: BUN/Creatinine Ratio 18 (6-26); Blood Urea Nitrogen 18 mg/dL (8-23); Calcium 8.5 mg/dL (8.6-10.3); Carbon Dioxide 27 mEq/L (23-29); Chloride 104 mEq/L (98-107); Glucose 124 mg/dL (70-105); Osmolality,Calculated 291 (280-300); Potassium 4.3 mEq/L (3.5-5.1); Sodium 139 mEq/L (136-145); eGFR For African Americans > 60 (> 60); eGFR For Non-African Americans 55 (> 60)
--- NOTE | 2019-04-25 08:47 | Urology Progress Note ---
<Giana Salinas N - Last Filed: 04/25/19 08:44> Date of Encounter: 04/25/19 Time of Encounter: 08:00 - Assessment and Plan (1) Hydronephrosis with renal and ureteral calculous obstruction Current Visit: Yes Status: Acute Assessment and plan: Patient is a 68-year-old female who presents 2 days status post cystoscopy, left retrograde pyelogram and left ureteral stent placement. Patient continues with indwelling Montgomery catheter, and urine is still appearing bloody. We discussed postoperative expectations with indwelling ureteral stent, including urinary urgency, frequency, dysuria and hematuria. Discussed hematuria may be prolonged secondary to anticoagulation. Patient is aware she will require an outpatient staged stone extraction procedure. Will discuss Montgomery removal with Dr. Maria and place order if indicated. (2) Sepsis Current Visit: Yes Status: Acute Assessment and plan: Patient is a 68-year-old female who presents with septic ureteral stone. Preliminary blood cultures are positive for gram-negative rods, and patient is receiving IV Rocephin. White blood cell count is improved to 22.8, and vital signs remained stable and afebrile. Patient appears much improved clinically. Plan to follow final culture and sensitivity report and transition to 14 days of oral antibiotics. Qualifiers: Sepsis type: sepsis due to unspecified organism Sepsis acute organ dysfunction status: without acute organ dysfunction Qualified Code(s): A41.9 - Sepsis, unspecified organism Progress Note Narrative: POD #2. Patient seen and examined sitting upright in bed eating breakfast in no apparent distress. Patient denies any fever, chills or flank pain. Montgomery catheter is indwelling and draining maroon-colored urine into bedside bag. Objective Initial Vital Signs Temp Pulse Resp BP Pulse Ox 99.9 F H 105 22 119/83 96 04/23/19 14:09 04/23/19 14:04/23/19 14:04/23/19 14:04/23/19 14:09 - General physical appearance Present: no distress, no pain, obese - Respiratory Present: normal expansion, normal respiratory effort - Abdomen Present: soft, non tender. Absent: distended - Genitourinary Urine Appearance: Present: Hematuria - Integumentary Present: no rash, no abnormal pigmentation - Musculoskeletal Present: normal posture - Psychiatric Present: oriented to time, oriented to person, oriented to place, speech is normal, memory intact - Labs 04/25/19 05:08 04/25/19 05:08 Diabetes panel 04/25/19 Range/Units 05:08 Sodium 139 (136-145) mEq/L Potassium 4.3 (3.5-5.1) mEq/L Chloride 104 (98-107) mEq/L Carbon Dioxide 27 (23-29) mEq/L BUN 18 (8-23) mg/dL Creatinine 1.01 (0.60-1.20) mg/dL Glucose 124 H (70-105) mg/dL Calcium 8.5 L (8.6-10.3) mg/dL Calcium panel 04/25/19 Range/Units 05:08 Calcium 8.5 L (8.6-10.3) mg/dL Pituitary panel 04/25/19 Range/Units 05:08 Sodium 139 (136-145) mEq/L Potassium 4.3 (3.5-5.1) mEq/L Chloride 104 (98-107) mEq/L Carbon Dioxide 27 (23-29) mEq/L BUN 18 (8-23) mg/dL Creatinine 1.01 (0.60-1.20) mg/dL Glucose 124 H (70-105) mg/dL Calcium 8.5 L (8.6-10.3) mg/dL Adrenal panel 04/25/19 Range/Units 05:08 Sodium 139 (136-145) mEq/L Potassium 4.3 (3.5-5.1) mEq/L Chloride 104 (98-107) mEq/L Carbon Dioxide 27 (23-29) mEq/L BUN 18 (8-23) mg/dL Creatinine 1.01 (0.60-1.20) mg/dL Glucose 124 H (70-105) mg/dL Calcium 8.5 L (8.6-10.3) mg/dL Consult Discharge Plan - Plan Referrals: Edouard Cole MD [Primary Care Provider] - <Walter Maria - Last Filed: 04/25/19 18:07> Date of Encounter: 04/25/19 - Assessment and Plan (1) Hydronephrosis with renal and ureteral calculous obstruction Current Visit: Yes Status: Acute Assessment and plan: Patient seen and examined in conjunction with physician front desk assistant. Patient is improving daily. Blood cultures confirmed urosepsis. Catheter removed. She will continue to have intermittent gross hematuria. We will plan outpatient ureteroscopic stone extraction. Urology sign off. Please reconsult if further assistance needed during hospitalization (2) Sepsis Current Visit: Yes Status: Acute Qualifiers: Sepsis type: Escherichia coli Sepsis acute organ dysfunction status: without acute organ dysfunction Qualified Code(s): A41.51 - Sepsis due to Escherichia coli [E. coli] Objective Initial Vital Signs Temp Pulse Resp BP Pulse Ox 99.9 F H 105 22 119/83 96 04/23/19 14:04/23/19 14:04/23/19 14:04/23/19 14:04/23/19 14:09 - Labs 04/25/19 05:08 04/25/19 05:08 Diabetes panel 04/25/19 Range/Units 05:08 Sodium 139 (136-145) mEq/L Potassium 4.3 (3.5-5.1) mEq/L Chloride 104 (98-107) mEq/L Carbon Dioxide 27 (23-29) mEq/L BUN 18 (8-23) mg/dL Creatinine 1.01 (0.60-1.20) mg/dL Glucose 124 H (70-105) mg/dL Calcium 8.5 L (8.6-10.3) mg/dL Calcium panel 04/25/19 Range/Units 05:08 Calcium 8.5 L (8.6-10.3) mg/dL Pituitary panel 04/25/19 Range/Units 05:08 Sodium 139 (136-145) mEq/L Potassium 4.3 (3.5-5.1) mEq/L Chloride 104 (98-107) mEq/L Carbon Dioxide 27 (23-29) mEq/L BUN 18 (8-23) mg/dL Creatinine 1.01 (0.60-1.20) mg/dL Glucose 124 H (70-105) mg/dL Calcium 8.5 L (8.6-10.3) mg/dL Adrenal panel 04/25/19 Range/Units 05:08 Sodium 139 (136-145) mEq/L Potassium 4.3 (3.5-5.1) mEq/L Chloride 104 (98-107) mEq/L Carbon Dioxide 27 (23-29) mEq/L BUN 18 (8-23) mg/dL Creatinine 1.01 (0.60-1.20) mg/dL Glucose 124 H (70-105) mg/dL Calcium 8.5 L (8.6-10.3) mg/dL
[2019-04-25] MEDS: Insulin LISPRO 300 UNITS/3 ML VIAL SQ SCH ×4 (09:01→21:48)
[2019-04-25] MEDS: Aspirin Enteric Coated 81 MG Tablet PO SCH (09:27)
[2019-04-25] MEDS: Gabapentin 400 MG CAPSULE PO SCH ×4 (09:28→21:47)
[2019-04-25] MEDS: *HR* Digoxin 0.25 MG TABLET PO SCH (09:28)
[2019-04-25] MEDS: cefTRIAXone 2,000 MG in Water for inj. (sterile) 20 ML IVP SCH (09:29)
[2019-04-25] MEDS: Diltiazem CD (24hr) 240 MG CAPSULE PO SCH (09:36)
[2019-04-25] MEDS: Budesonide/Formoterol 160/4.5 1 PUFF INH IH SCH ×2 (11:14→21:07)
--- NOTE | 2019-04-25 12:42 | Internal Med Progress Note ---
Hospitalist Progress Note - Encounter Date of Encounter: 04/25/19 Time of Encounter: 08:30 - Subjective Interval History: No major events overnight. Patient was seen this a.m. sHe denied fever, chills or night sweats. sHe has no nausea, vomiting or abdominal pain. Patient denied chest pain, shortness of breath or palpitation. - Exam Vitals: Temp Pulse Resp BP Pulse Ox 98.2 F 100 16 137/84 96 04/25/19 11:29 04/25/19 11:29 04/25/19 11:29 04/25/19 11:04/25/19 11:29 Exam: General: Patient is alert, oriented 3. Head: Atraumatic, normal inspection, normocephalic. Eye: EOMI, PERRLA, ENT: Mucous membranes moist. Neck: Normal inspection, Respiratory: No respiratory distress, rhonchi, or wheezes noted. Cardiovascular: Regular rate and irregular rhythm, S1 and S2 audible. No murmurs, rubs, or gallops. GI: Soft, nondistended, normal bowel sounds. Extremities:Left AKA Neurological: Alert, oriented 3, no focal deficits. Psychiatric: normal affect, normal mood. Skin: Dry, intact, warm. Normal color. No rashes. - Assessment and Plan (1) Sepsis Current Visit: Yes Status: Acute (2) UTI (urinary tract infection) Current Visit: Yes Status: Acute (3) COPD (chronic obstructive pulmonary disease) Current Visit: Yes Status: Chronic (4) Chronic atrial fibrillation Current Visit: Yes Status: Chronic (5) GERD (gastroesophageal reflux disease) Current Visit: Yes Status: Chronic (6) HTN (hypertension) Current Visit: Yes Status: Chronic (7) Diastolic CHF Current Visit: Yes Status: Chronic (8) Morbid obesity with BMI of 45.0-49.9, adult Current Visit: Yes Status: Chronic (9) Hydronephrosis with renal and ureteral calculous obstruction Current Visit: Yes Status: Acute - Summary of Assessment and Plan Summary of Assessment and Plan: 68-year-old female with history of A. fib, IDDM, COPD, HFpef was managed in the hospital for Escherichia coli sepsis secondary to nephrolithiasis. She was transferred from the ICU to the floor and her symptoms are major swallowing: Escherichia coli bacteremia: 2/2 UTI and nephrolithiasis. Patient is afebrile, hemodynamically stable. Follow-up blood cultures are negative. On Rocephine Day 3/14. Leukocytosis is improving. hydronephrosis due to Nephrolithiasis: SS/P ureter stent placement. Urology is on board. Still with hematuria, Montgomery catheter is in. Follow-up as outpatient is required. Atrial fibrillation: Rate controlled, continue homemedication of Cardizem, digoxin. Continue Xeralto for anticoagulation COPD: Continue home inhalers HFpEF: hold lasix, she is euvolemic DVT ppx: on xeralto - Time Spent with Patient Total time spent is greater than 50% in coordination of care (as documented) at patient's floor/unit and/or counseling patient: Internal Medicine: Result - Labs CBC & Chem 7: 04/25/19 05:08 04/25/19 05:08 Labs: Short CBC 04/25/19 Range/Units 05:08 WBC 22.8 H (4.3-11.1) K/mcL Hgb 10.5 L D (11.5-15.4) g/dL Hct 35.2 L (35.3-44.9) % Plt Count 240 (140-400) K/mcL Neutrophils # 19.8 H (1.6-8.9) K/mcL BMP 04/25/19 05:08 Sodium 139 Potassium 4.3 Chloride 104 Carbon Dioxide 27 BUN 18 Creatinine 1.01 Glucose 124 H Calcium 8.5 L - ABG Interpretation ABG results: PT/INR, D-dimer PT 20.8 Seconds (9.4-12.1) H 04/23/19 15:06 Consult Discharge Plan - Plan Referrals: Edouard Cole MD [Primary Care Provider] - (1) Sepsis Qualifiers: Sepsis type: Escherichia coli Sepsis acute organ dysfunction status: without acute organ dysfunction Qualified Code(s): A41.51 - Sepsis due to Escherichia coli [E. coli] (2) UTI (urinary tract infection) Qualifiers: Urinary tract infection type: acute pyelonephritis Qualified Code(s): N10 - Acute pyelonephritis (3) COPD (chronic obstructive pulmonary disease) Qualifiers: COPD type: unspecified COPD Qualified Code(s): J44.9 - Chronic obstructive pulmonary disease, unspecified (5) GERD (gastroesophageal reflux disease) Qualifiers: Esophagitis presence: esophagitis presence not specified Qualified Code(s): K21.9 - Gastro-esophageal reflux disease without esophagitis (6) HTN (hypertension) Qualifiers: Hypertension type: essential hypertension Qualified Code(s): I10 - Essential (primary) hypertension (7) Diastolic CHF Qualifiers: Heart failure chronicity: chronic Qualified Code(s): I50.32 - Chronic diastolic (congestive) heart failure
[2019-04-25] MEDS ORDERED: 0.9 % Sodium Chloride 1,000 ML IVC SCH (12:49)
[2019-04-25] MEDS: *HR* Rivaroxaban 10 MG TABLET PO SCH (17:11)
[2019-04-26] MEDS: Ipratropium/Albuterol Neb 3 ML IH SCH ×4 (03:05→22:25)
[2019-04-26 05:17] LABS: Hematocrit 34.7 % (35.3-44.9); Hemoglobin 10.2 g/dL (11.5-15.4); Mean Corpuscular HGB Conc 29.4 g/dL (31.6-35.5); Mean Corpuscular Hemoglobin 25.6 pg (28.0-33.3); Mean Platelet Volume 10.4 fL (9.4-12.4); Platelet Count 239 K/mcL (140-400); Red Blood Count 3.99 M/mcL (3.82-4.97); White Blood Count 15.2 K/mcL (4.3-11.1)
[2019-04-26 05:32] LABS: BUN/Creatinine Ratio 22 (6-26); Blood Urea Nitrogen 17 mg/dL (8-23); Calcium 8.5 mg/dL (8.6-10.3); Carbon Dioxide 27 mEq/L (23-29); Chloride 106 mEq/L (98-107); Glucose 105 mg/dL (70-105); Osmolality,Calculated 288 (280-300); Sodium 138 mEq/L (136-145); eGFR For African Americans > 60 (> 60); eGFR For Non-African Americans > 60 (> 60)
[2019-04-26] MEDS: Insulin LISPRO 300 UNITS/3 ML VIAL SQ SCH ×4 (08:22→22:09)
[2019-04-26] MEDS: Gabapentin 400 MG CAPSULE PO SCH ×4 (08:24→22:12)
[2019-04-26] MEDS: Aspirin Enteric Coated 81 MG Tablet PO SCH (08:25)
[2019-04-26] MEDS: cefTRIAXone 2,000 MG in Water for inj. (sterile) 20 ML IVP SCH (08:25)
[2019-04-26] MEDS: *HR* Digoxin 0.25 MG TABLET PO SCH (08:25)
[2019-04-26] MEDS: Diltiazem CD (24hr) 240 MG CAPSULE PO SCH (08:25)
[2019-04-26] MEDS: Budesonide/Formoterol 160/4.5 1 PUFF INH IH SCH ×2 (10:57→22:25)
--- NOTE | 2019-04-26 13:08 | Internal Med Progress Note ---
Hospitalist Progress Note - Encounter Date of Encounter: 04/26/19 Time of Encounter: 09:00 - Subjective Interval History: Patient was seen this morning, she was little bit nauseous however she denied any abdominal pain or vomiting. She is still having hematuria. - Exam Vitals: Temp Pulse Resp BP Pulse Ox 98.4 F 106 16 138/92 94 04/26/19 10:53 04/26/19 10:53 04/26/19 10:58 04/26/19 10:53 04/26/19 10:58 Exam: General: Patient is alert, oriented 3. Head: Atraumatic, normal inspection, normocephalic. Eye: EOMI, PERRLA, ENT: Mucous membranes moist. Neck: Normal inspection, Respiratory: No respiratory distress, rhonchi, or wheezes noted. Cardiovascular: Regular rate and irregular rhythm, S1 and S2 audible. No murmurs, rubs, or gallops. GI: Soft, nondistended, normal bowel sounds. Extremities:Left AKA Neurological: Alert, oriented 3, no focal deficits. Psychiatric: normal affect, normal mood. Skin: Dry, intact, warm. Normal color. No rashes. - Assessment and Plan (1) Sepsis Current Visit: Yes Status: Resolved (2) UTI (urinary tract infection) Current Visit: Yes Status: Acute (3) COPD (chronic obstructive pulmonary disease) Current Visit: Yes Status: Chronic (4) Chronic atrial fibrillation Current Visit: Yes Status: Chronic (5) GERD (gastroesophageal reflux disease) Current Visit: Yes Status: Chronic (6) HTN (hypertension) Current Visit: Yes Status: Chronic (7) Diastolic CHF Current Visit: Yes Status: Chronic (8) Morbid obesity with BMI of 45.0-49.9, adult Current Visit: Yes Status: Chronic (9) Hydronephrosis with renal and ureteral calculous obstruction Current Visit: Yes Status: Acute - Summary of Assessment and Plan Summary of Assessment and Plan: 68-year-old female with history of A. fib, IDDM, COPD, HFpef was managed in the hospital for Escherichia coli sepsis secondary to nephrolithiasis. She was transferred from the ICU to the floor and her symptoms are major swallowing: Escherichia coli bacteremia: 2/2 UTI and nephrolithiasis. Patient is afebrile, hemodynamically stable. Follow-up blood cultures are negative. On Rocephine Day 4/14. Leukocytosis is improving. hydronephrosis due to Nephrolithiasis with hematuria: SS/P ureter stent placement. Urology is on board. Still with hematuria, Montgomery catheter is in. Follow-up as outpatient is required. Hg Atrial fibrillation: Rate controlled, continue homemedication of Cardizem, digoxin. Continue Xeralto for anticoagulation COPD: Continue home inhalers HFpEF: hold lasix, she is euvolemic DVT ppx: on xeralto - Time Spent with Patient Total time spent is greater than 50% in coordination of care (as documented) at patient's floor/unit and/or counseling patient: Plan of Care Discussed with: patient Internal Medicine: Result - Labs CBC & Chem 7: 04/26/19 04:38 04/26/19 04:38 Labs: Short CBC 04/26/19 Range/Units 04:38 WBC 15.2 H (4.3-11.1) K/mcL Hgb 10.2 L (11.5-15.4) g/dL Hct 34.7 L (35.3-44.9) % Plt Count 239 (140-400) K/mcL BMP 04/26/19 04:38 Sodium 138 Potassium 4.0 Chloride 106 Carbon Dioxide 27 BUN 17 Creatinine 0.77 Glucose 105 Calcium 8.5 L - ABG Interpretation ABG results: PT/INR, D-dimer PT 20.8 Seconds (9.4-12.1) H 04/23/19 15:06 Consult Discharge Plan - Plan Referrals: Edouard Cole MD [Primary Care Provider] - ___ (1) Sepsis Qualifiers: Sepsis type: Escherichia coli Sepsis acute organ dysfunction status: without acute organ dysfunction Qualified Code(s): A41.51 - Sepsis due to Escherichia coli [E. coli] (2) UTI (urinary tract infection) Qualifiers: Urinary tract infection type: acute pyelonephritis Qualified Code(s): N10 - Acute pyelonephritis (3) COPD (chronic obstructive pulmonary disease) Qualifiers: COPD type: unspecified COPD Qualified Code(s): J44.9 - Chronic obstructive pulmonary disease, unspecified (5) GERD (gastroesophageal reflux disease) Qualifiers: Esophagitis presence: esophagitis presence not specified Qualified Code(s): K21.9 - Gastro-esophageal reflux disease without esophagitis (6) HTN (hypertension) Qualifiers: Hypertension type: essential hypertension Qualified Code(s): I10 - Essential (primary) hypertension (7) Diastolic CHF Qualifiers: Heart failure chronicity: chronic Qualified Code(s): I50.32 - Chronic diastolic (congestive) heart failure
[2019-04-27] MEDS: Ipratropium/Albuterol Neb 3 ML IH SCH ×2 (03:34→10:59)
[2019-04-27 07:15] LABS: Hematocrit 33.5 % (35.3-44.9); Mean Corpuscular HGB Conc 29.9 g/dL (31.6-35.5); Mean Corpuscular Hemoglobin 25.8 pg (28.0-33.3); Mean Corpuscular Volume 86.3 fL (83.0-100.0); Mean Platelet Volume 10.5 fL (9.4-12.4); Platelet Count 247 K/mcL (140-400); Red Blood Count 3.88 M/mcL (3.82-4.97); Red Cell Distribution Width 14.7 % (11.5-14.5); White Blood Count 11.4 K/mcL (4.3-11.1)
[2019-04-27 07:41] VITALS: BP 163/84
[2019-04-27] MEDS: Insulin LISPRO 300 UNITS/3 ML VIAL SQ SCH ×2 (07:43→11:58)
[2019-04-27] MEDS: *HR* Digoxin 0.25 MG TABLET PO SCH (09:31)
[2019-04-27] MEDS: Gabapentin 400 MG CAPSULE PO SCH (09:31)
[2019-04-27] MEDS: Aspirin Enteric Coated 81 MG Tablet PO SCH (09:32)
[2019-04-27] MEDS: cefTRIAXone 2,000 MG in Water for inj. (sterile) 20 ML IVP SCH (09:32)
[2019-04-27] MEDS: Diltiazem CD (24hr) 240 MG CAPSULE PO SCH (09:32)
--- NOTE | 2019-04-27 09:32 | Discharge Summary ---
- NOTES TO OUTPATIENT PROVIDER Notes to Outpatient Provider: Patient was admitted for the Escherichia coli urosepsis secondary to nephrolithiasis. Urology was consulted and patient had a stent placed with postoperative hematuria that slowed down today. Hemoglobin has been stable. Patient to follow-up with urology in 1 week for stone removal. She has ten days left of Abx to finish. Orders not resulted at time of discharge: Pending orders 04/23/19 15:06 Culture,Blood [BC] Stat 04/24/19 05:04 Culture,Blood [BC] Routine Date of Encounter: 04/27/19 Time of Encounter: 09:40 - Discharge Diagnosis (1) Sepsis Priority: Primary Status: Resolved Qualifiers: Sepsis type: Escherichia coli Sepsis acute organ dysfunction status: without acute organ dysfunction Qualified Code(s): A41.51 - Sepsis due to Escherichia coli [E. coli] (2) UTI (urinary tract infection) Priority: Secondary Status: Resolved Qualifiers: Urinary tract infection type: acute pyelonephritis Qualified Code(s): N10 - Acute pyelonephritis (3) COPD (chronic obstructive pulmonary disease) Priority: Secondary Status: Chronic Qualifiers: COPD type: unspecified COPD Qualified Code(s): J44.9 - Chronic obstructive pulmonary disease, unspecified (4) Chronic atrial fibrillation Priority: Secondary Status: Chronic (5) GERD (gastroesophageal reflux disease) Priority: Secondary Status: Chronic Qualifiers: Esophagitis presence: esophagitis presence not specified Qualified Code(s): K21.9 - Gastro-esophageal reflux disease without esophagitis (6) HTN (hypertension) Priority: Secondary Status: Chronic Qualifiers: Hypertension type: essential hypertension Qualified Code(s): I10 - Essential (primary) hypertension (7) Diastolic CHF Priority: Secondary Status: Chronic Qualifiers: Heart failure chronicity: chronic Qualified Code(s): I50.32 - Chronic diastolic (congestive) heart failure (8) Morbid obesity with BMI of 45.0-49.9, adult Priority: Secondary Status: Chronic (9) Hydronephrosis with renal and ureteral calculous obstruction Priority: Secondary Status: Acute Hospital course: 68-year-old female with history of A. fib, IDDM, COPD, HFpef was managed in the hospital for Escherichia coli urosepsis secondary to nephrolithiasis with successful stent placement in the left ureter. Follow-up blood cultures remained negative on Rocephine. Patient remained hemoglobin remained stable, afebrile and her leukocytosis improved at discharge. Her course was complicated by post-stent hematuria being on xarelto which was held for 1 day with significant improvement and her hematuria. Patient will follow-up with urology in 1 week for stent and stone removal and she will continue antibiotics for extra 10 days. Today, patient is hemodynamically stable, asymptomatic. She will be discharged home in stable condition. Discharge discussed with: patient - Time Spent with Patient Total time spent providing and/or coordinating discharge services: 45 minutes - Discharge Medications Prescriptions: New Budesonide/Formoterol 160/4.5 [Symbicort 160/4.5] 2 puff IH BIDR inh Continued Calcium Carbonate/Vitamin D3 [Oyster Shell Calcium-Vit D Tab] 500 mg PO BIDWM Ferrous Sulfate 325 mg PO DAILY Digoxin [Lanoxin] 0.25 mg PO DAILY Aspirin Enteric Coated [Aspirin EC] 81 mg PO DAILY Albuterol Sulfate [Ventolin Hfa] 2 puff IH Q6H PRN PRN Reason: Shortness Of Breath Omeprazole [PriLOSEC] 40 mg PO DAILY Mv,Jim,Min/Iron/Folic Acid/Lut [Sentry Multivit & Mineral Cplt] 1 tab PO DAILY Rivaroxaban [Xarelto] 20 mg PO DAILY #0 BuPROPion [Wellbutrin] 100 mg PO BID DULoxetine [Cymbalta] 30 mg PO DAILY Gabapentin 800 mg PO QID Potassium Chloride [Klor-Con 10] 10 meq PO DAILY Umeclidinium [place] [Incruse Ellipta] 1 puff IH DAILY Furosemide [Lasix] 40 mg PO DAILY Diltiazem CD (24hr) [Cardizem CD] 240 mg PO DAILY Acetaminophen [Pain Reliever] 500 mg PO BID Home Medications: Albuterol Sulfate [Ventolin Hfa] 2 puff IH Q6H PRN 03/13/16 [History] Aspirin Enteric Coated [Aspirin EC] 81 mg PO DAILY 03/13/16 [History] Calcium Carbonate/Vitamin D3 [Oyster Shell Calcium-Vit D Tab] 500 mg PO BIDWM 03/13/16 [History] Digoxin [Lanoxin] 0.25 mg PO DAILY 03/13/16 [History] Ferrous Sulfate 325 mg PO DAILY 03/13/16 [History] Omeprazole [PriLOSEC] 40 mg PO DAILY 10/12/16 [History] Mv,Jim,Min/Iron/Folic Acid/Lut [Sentry Multivit & Mineral Cplt] 1 tab PO DAILY 07/19/18 [History] Rivaroxaban [Xarelto] 20 mg PO DAILY #0 07/21/18 [Rx] BuPROPion [Wellbutrin] 100 mg PO BID 10/15/18 [History] DULoxetine [Cymbalta] 30 mg PO DAILY 10/15/18 [History] Gabapentin 800 mg PO QID 10/15/18 [History] Potassium Chloride [Klor-Con 10] 10 meq PO DAILY 10/15/18 [History] Acetaminophen [Pain Reliever] 500 mg PO BID 04/24/19 [History] Diltiazem CD (24hr) [Cardizem CD] 240 mg PO DAILY 04/24/19 [History] Furosemide [Lasix] 40 mg PO DAILY 04/24/19 [History] Umeclidinium [place] [Incruse Ellipta] 1 puff IH DAILY 04/24/19 [History] Budesonide/Formoterol 160/4.5 [Symbicort 160/4.5] 2 puff IH BIDR inh 04/27/19 [Rx] Allergies/Adverse Reactions: Allergy/AdvReac Type Severity Reaction Status Date / Time lisinopril AdvReac Cough Verified 02/04/19 19:20 Date of admission: 04/23/19 17:38 Primary care physician: Edouard Cole MD Consults: 04/23/19 17:19 Consult to Urology [CONS] Stat Consulting Provider: Urology Leah Reason for Consult: obstructing renal stone, pyelonephritis Time Notified: 17:19 Call Completed: Yes 04/24/19 10:58 Consult to Nurse Navigator [CONS] Routine Comment: CHF 04/25/19 12:41 Consult to Occupational Therapy [CONS] Routine Comment: Evaluate, develop and implement POC Reason for Consult: evaluate the need for skilled placement Does patient have active BEDREST order?: No Is patient medically & hemodynamically stable?: Yes Consult to Physical Therapy [CONS] Routine Comment: Evaluate, develop and implement POC Reason for Consult: evaluate the need for skilled placement Does patient have active BEDREST order?: No Is patient medically & hemodynamically stable?: Yes - Constitutional Vitals: Temp Pulse Resp BP Pulse Ox 98.4 F 100 15 163/84 97 04/27/19 07:40 04/27/19 07:40 04/27/19 07:40 04/27/19 07:40 04/27/19 07:40 Exam: General: Patient is alert, oriented 3. Head: Atraumatic, normal inspection, normocephalic. Eye: EOMI, PERRLA, ENT: Mucous membranes moist. Neck: Normal inspection, Respiratory: No respiratory distress, rhonchi, or wheezes noted. Cardiovascular: Regular rate and irregular rhythm, S1 and S2 audible. No murmurs, rubs, or gallops. GI: Soft, nondistended, normal bowel sounds. Extremities:Left AKA Neurological: Alert, oriented 3, no focal deficits. Psychiatric: normal affect, normal mood. Skin: Dry, intact, warm. Normal color. No rashes. - Patient Status Disposition: Home Health Service Condition: Good Functional capacity at discharge: uses cane/walker Overall status at discharge: patient is back to baseline - Discharge Instructions Follow Up With: Edouard Cole MD [Primary Care Provider] - Walter Maria MD [Partnered Physician] - - Diet and Activity Activity: ambulate only with your walker Diet: diabetic diet
--- NOTE | 2019-04-27 09:44 | Physician Discharge Referral ---
Home Health/Hosp Referral Info Transfer to: Home Health Provider in Charge Post Discharge: PCP - Diagnosis (1) Sepsis Priority: Primary Status: Resolved (2) UTI (urinary tract infection) Priority: Secondary Status: Resolved (3) COPD (chronic obstructive pulmonary disease) Priority: Secondary Status: Chronic (4) Chronic atrial fibrillation Priority: Secondary Status: Chronic (5) GERD (gastroesophageal reflux disease) Priority: Secondary Status: Chronic (6) HTN (hypertension) Priority: Secondary Status: Chronic (7) Diastolic CHF Priority: Secondary Status: Chronic (8) Morbid obesity with BMI of 45.0-49.9, adult Priority: Secondary Status: Chronic (9) Hydronephrosis with renal and ureteral calculous obstruction Status: Acute - Respiratory Orders Smoking Cessation: Smoking cessation has been advised. For more information, call the [place] Tobacco Quit Line at 2-339-QXQY-NOW. - Diet/Nutrition Diet/Nutrition Orders: Regular (diabetic), Cardiac - Activity Activity Orders: Walker - Services Needed Following services are medically necessary services: Nursing, Home Health Aide, Physical Therapy, Occupational Therapy - Transfer Medications Home Medications: Albuterol Sulfate [Ventolin Hfa] 2 puff IH Q6H PRN 03/13/16 [History] Aspirin Enteric Coated [Aspirin EC] 81 mg PO DAILY 03/13/16 [History] Calcium Carbonate/Vitamin D3 [Oyster Shell Calcium-Vit D Tab] 500 mg PO BIDWM 03/13/16 [History] Digoxin [Lanoxin] 0.25 mg PO DAILY 03/13/16 [History] Ferrous Sulfate 325 mg PO DAILY 03/13/16 [History] Omeprazole [PriLOSEC] 40 mg PO DAILY 10/12/16 [History] Mv,Jim,Min/Iron/Folic Acid/Lut [Sentry Multivit & Mineral Cplt] 1 tab PO DAILY 07/19/18 [History] Rivaroxaban [Xarelto] 20 mg PO DAILY #0 07/21/18 [Rx] BuPROPion [Wellbutrin] 100 mg PO BID 10/15/18 [History] DULoxetine [Cymbalta] 30 mg PO DAILY 10/15/18 [History] Gabapentin 800 mg PO QID 10/15/18 [History] Potassium Chloride [Klor-Con 10] 10 meq PO DAILY 10/15/18 [History] Acetaminophen [Pain Reliever] 500 mg PO BID 04/24/19 [History] Diltiazem CD (24hr) [Cardizem CD] 240 mg PO DAILY 04/24/19 [History] Furosemide [Lasix] 40 mg PO DAILY 04/24/19 [History] Umeclidinium [place] [Incruse Ellipta] 1 puff IH DAILY 04/24/19 [History] Budesonide/Formoterol 160/4.5 [Symbicort 160/4.5] 2 puff IH BIDR inh 04/27/19 [Rx] Allergies/Adverse Reactions: Allergy/AdvReac Type Severity Reaction Status Date / Time lisinopril AdvReac Cough Verified 02/04/19 19:20 Certification: Further, I certify that my clinical findings support that this patient is homebound (i.e. absences from home require considerable and taxing effort and are for medical reasons or cheondoism services or infrequently or short duration when for other reasons) because: Homebound Reason: Patient requires assistance of a person or device to safely leave home Attestation: My signature below is to certify that this patient is under my care and that I, or nurse practitioner, or a physician's furniture removalist's assistant working with me, has a [id number] encounter with this patient.
[2019-04-27] MEDS: Budesonide/Formoterol 160/4.5 1 PUFF INH IH SCH (10:59)
== END 2019-04-27 12:38 | disposition home health service (06) | DRG 854 ==
LOC: 2NENU 14:06 → EMEROOARM 14:06 → SUATTDRO 17:30 → 2NENU 17:43 → ICNU 19:24 → 3ANU 04-24 15:18
PROVIDERS: ADMIT Pharmacist; ATTEND Internal Medicine

== ENCOUNTER 2020-06-03 16:17 | Observation (INO) ==
[2020-06-03] MEDS ORDERED: 0.9 % Sodium Chloride 500 ML IVC ONE (17:01)
[2020-06-03] MEDS ORDERED: Ondansetron 4 MG/2 ML VIAL IVP ONE (17:01)
[2020-06-03 17:55] LABS: Basophils # 0.1 K/mcL (0.0-0.2); Basophils % 0.3 %; Eosinophils # 0.2 K/mcL (0.0-0.6); Eosinophils % 1.1 %; Hematocrit 50.2 % (35.3-44.9); Hemoglobin 15.2 g/dL (11.5-15.4); Immature Granulocytes % 0.7 % (0-4); Lymphocytes # 2.2 K/mcL (0.6-4.6); Lymphocytes % 11.2 %; Mean Corpuscular HGB Conc 30.3 g/dL (31.6-35.5); Mean Corpuscular Volume 82.6 fL (83.0-100.0); Mean Platelet Volume 9.7 fL (9.4-12.4); Monocytes # 1.1 K/mcL (0.0-1.3); Monocytes % 5.3 %; Platelet Count 400 K/mcL (140-400); Red Blood Count 6.08 M/mcL (3.82-4.97); Red Cell Distribution Width 14.6 % (11.5-14.5); Segmented Neutrophils % 81.4 %; White Blood Count 19.7 K/mcL (4.3-11.1)
[2020-06-03 18:07] LABS: Alanine Aminotransferase 17 Units/L (7-52); Albumin 4.1 g/dL (3.5-5.7); Albumin/Globulin Ratio 1.2 (1.1-2.2); Alkaline Phosphatase 86 Units/L (34-104); Aspartate Amino Transferase 14 Units/L (13-39); BUN/Creatinine Ratio 21 (6-26); Bilirubin,Direct 0.1 mg/dL (0.0-0.2); Bilirubin,Indirect 0.4 mg/dL (0.0-1.0); Bilirubin,Total 0.5 mg/dL (0.3-1.0); Blood Urea Nitrogen 21 mg/dL (8-23); Calcium 9.9 mg/dL (8.6-10.3); Carbon Dioxide 27 mEq/L (23-29); Chloride 100 mEq/L (98-107); Globulin 3.3 g/dL (2.4-3.5); Glucose 125 mg/dL (70-105); Lipase 16 Units/L (11-82); Osmolality,Calculated 288 (280-300); Potassium 4.3 mEq/L (3.5-5.1); Sodium 137 mEq/L (136-145); Total Protein 7.4 g/dL (6.4-8.9); eGFR For African Americans > 60 (> 60); eGFR For Non-African Americans 56 (> 60)
[2020-06-03 18:58] LABS: Bacteria,Urine Few per hpf (None-Few); Bilirubin,Urine Small (Negative); Blood,Urine Trace (Negative); Clarity,Urine Turbid (Clear); Color,Urine Dark-Yellow (Yellow); Glucose,Urine (UA) Normal (Normal); Hyaline Casts,Urine Moderate per lpf (None Seen); Ketones,Urine Trace mg/dL (Negative); Leukocyte Esterase,Urine Moderate (Negative); Mucus,Urine Few per lpf (None-Few); Nitrite,Urine Negative (Negative); PH,Urine 5.5 pH Units (5.0-8.0); Protein,Urine 100 mg/dL (Neg-Trace); RBC,Urine 15-30 per hpf (0-3); Specific Gravity,Urine > 1.030 (1.010-1.025); Squamous Epithelial Cell,Urine Few per hpf (None-Few); WBC,Urine 50-100 per hpf (0-3)
[2020-06-03] MEDS ORDERED: cefTRIAXone 1,000 MG in Water for inj. (sterile) 10 ML IVP ONE (19:07)
[2020-06-03] MEDS ORDERED: *HR* Promethazine 25 MG/ML VIAL IVP PRN (21:34)
[2020-06-03] MEDS ORDERED: *HR* HYDROcodone/Acet 5/325 mg TABLET PO PRN (21:35)
[2020-06-03] MEDS ORDERED: Acetaminophen 325 MG TABLET PO SCH (21:45)
[2020-06-03] MEDS: Budesonide/Formoterol 160/4.5 1 PUFF INH IH SCH (21:59)
[2020-06-03] MEDS ORDERED: Acetaminophen 325 MG TABLET PO PRN (22:15)
[2020-06-03] MEDS ORDERED: Naloxone 0.4 MG/ML INJ IVP PRN (22:24)
[2020-06-03] MEDS ORDERED: Pantoprazole 40 MG VIAL IVP ONE (23:44)
[2020-06-04] MEDS: Metoclopramide 10 MG/2 ML VIAL IVP SCH ×4 (00:07→16:49)
[2020-06-04] MEDS: Ringers Solution, Lactated 1,000 ML IVC SCH ×3 (01:56→17:12)
[2020-06-04 05:07] LABS: Basophils # 0.1 K/mcL (0.0-0.2); Basophils % 0.4 %; Eosinophils # 0.3 K/mcL (0.0-0.6); Eosinophils % 1.6 %; Hematocrit 48.3 % (35.3-44.9); Hemoglobin 14.3 g/dL (11.5-15.4); Immature Granulocytes % 0.6 % (0-4); Lymphocytes # 2.3 K/mcL (0.6-4.6); Lymphocytes % 14.2 %; Mean Corpuscular HGB Conc 29.6 g/dL (31.6-35.5); Mean Corpuscular Volume 84.4 fL (83.0-100.0); Mean Platelet Volume 9.7 fL (9.4-12.4); Monocytes # 0.9 K/mcL (0.0-1.3); Monocytes % 5.5 %; Neutrophils # 12.3 K/mcL (1.6-8.9); Nucleated Red Blood Cells 0.1 /100 WBC (0); Platelet Count 356 K/mcL (140-400); Red Blood Count 5.72 M/mcL (3.82-4.97); Red Cell Distribution Width 14.6 % (11.5-14.5); Segmented Neutrophils % 77.7 %; White Blood Count 15.8 K/mcL (4.3-11.1)
[2020-06-04 05:23] LABS: BUN/Creatinine Ratio 25 (6-26); Blood Urea Nitrogen 23 mg/dL (8-23); Calcium 9.3 mg/dL (8.6-10.3); Carbon Dioxide 26 mEq/L (23-29); Chloride 103 mEq/L (98-107); Glucose 149 mg/dL (70-105); Osmolality,Calculated 290 (280-300); Potassium 4.2 mEq/L (3.5-5.1); Sodium 137 mEq/L (136-145); eGFR For African Americans > 60 (> 60); eGFR For Non-African Americans > 60 (> 60)
[2020-06-04] MEDS: Tiotropium 18 MCG inhalation IH SCH (07:50)
[2020-06-04] MEDS: Budesonide/Formoterol 160/4.5 1 PUFF INH IH SCH ×2 (07:50→21:03)
[2020-06-04] MEDS ORDERED: Furosemide 40 MG TABLET PO SCH (08:00)
[2020-06-04] MEDS: cefTRIAXone 1,000 MG in Water for inj. (sterile) 10 ML IVP SCH (09:21)
[2020-06-04] MEDS: Aspirin Enteric Coated 81 MG Tablet PO SCH (09:22)
[2020-06-04] MEDS: Cyanocobalamin (B-12) 1,000 MCG TABLET PO SCH (09:22)
[2020-06-04] MEDS: *HR* Digoxin 0.25 MG TABLET PO SCH (09:22)
[2020-06-04] MEDS: DilTIAZem CD (24hr) 240 MG CAP.ER.24H PO SCH (09:22)
[2020-06-04] MEDS: *HR* Rivaroxaban 10 MG TABLET PO SCH (09:22)
[2020-06-04] MEDS: *HR* OxyCODONE/APAP 5/325 TABLET PO PRN ×2 (09:34→17:12)
[2020-06-05] MEDS: *HR* OxyCODONE/APAP 5/325 TABLET PO PRN (00:47)
[2020-06-05] MEDS: Metoclopramide 10 MG/2 ML VIAL IVP SCH ×3 (00:47→11:23)
[2020-06-05] MEDS: Budesonide/Formoterol 160/4.5 1 PUFF INH IH SCH (07:41)
[2020-06-05] MEDS: *HR* Rivaroxaban 10 MG TABLET PO SCH (08:25)
[2020-06-05] MEDS: Cyanocobalamin (B-12) 1,000 MCG TABLET PO SCH (08:26)
[2020-06-05] MEDS: cefTRIAXone 1,000 MG in Water for inj. (sterile) 10 ML IVP SCH (08:26)
[2020-06-05] MEDS: *HR* Digoxin 0.25 MG TABLET PO SCH (08:26)
[2020-06-05] MEDS: Aspirin Enteric Coated 81 MG Tablet PO SCH (08:26)
[2020-06-05] MEDS: DilTIAZem CD (24hr) 240 MG CAP.ER.24H PO SCH (08:27)
[2020-06-05] MEDS: Ringers Solution, Lactated 1,000 ML IVC SCH (09:44)
[2020-06-05] MEDS: Tiotropium 18 MCG inhalation IH SCH ×2 (11:06→12:03)
[2020-06-05 11:41] VITALS: BP 126/67
[2020-06-05 14:13] LABS: Hematocrit 45.2 % (35.3-44.9); Hemoglobin 13.5 g/dL (11.5-15.4); Mean Corpuscular HGB Conc 29.9 g/dL (31.6-35.5); Mean Corpuscular Volume 83.9 fL (83.0-100.0); Mean Platelet Volume 10.3 fL (9.4-12.4); Platelet Count 340 K/mcL (140-400); Red Blood Count 5.39 M/mcL (3.82-4.97); Red Cell Distribution Width 14.6 % (11.5-14.5); White Blood Count 12.4 K/mcL (4.3-11.1)
[2020-06-05 14:17] LABS: BUN/Creatinine Ratio 25 (6-26); Blood Urea Nitrogen 21 mg/dL (8-23); Calcium 9.4 mg/dL (8.6-10.3); Carbon Dioxide 24 mEq/L (23-29); Chloride 102 mEq/L (98-107); Glucose 129 mg/dL (70-105); Osmolality,Calculated 287 (280-300); Potassium 4.3 mEq/L (3.5-5.1); Sodium 136 mEq/L (136-145); eGFR For African Americans > 60 (> 60); eGFR For Non-African Americans > 60 (> 60)
== END 2020-06-05 13:59 | disposition home or self-care (01) | DRG 392 ==
LOC: 3NENU 16:17 → EMEROOARM 16:17 → 3NENU 20:54
PROVIDERS: ADMIT Internal Medicine; ATTEND Internal Medicine